=== PATIENT | female | born 1995 | race Caucasian/White ===

== ENCOUNTER 2021-12-30 20:01 | Emergency (ER) | payer BC, MEDICAID, SELFPAY ==
[2021-12-30 20:12] VITALS: BP 113/70; PULSE 87; RESP 16; TEMP 36.4; O2SAT 100; BMI 32.1
[2021-12-30 20:59] LABS: HCG Qualitative* Negative (Negative)
[2021-12-30 21:07] LABS: Appearance Urine Clear (Clear); Bilirubin Urine Negative (Negative); Blood Urine Negative (Negative); Color Urine Yellow (Yellow); Glucose Urine Negative (Negative); Ketones Urine Negative (Negative); Leukocyte Esterase Urine Trace (Negative); Nitrite Urine Negative (Negative); Protein Urine Negative (Negative); Specific Gravity Urine >= 1.030 (1.000-1.030); Urobilinogen Urine 0.2 (0.2-1.0); pH Urine 5.5 (5.0-8.5)
[2021-12-30] MEDS: ONDANSETRON 2 MG/ML inj 4 MG IVP (21:10)
[2021-12-30] MEDS: KETOROLAC 30 MG/ML inj IVP (21:10)
[2021-12-30] MEDS: 0.9 % SODIUM CHLORIDE 1000 ml 1,000 ML IV (21:10)
--- NOTE | 2021-12-30 21:10 | ED_ITS ---
HPI - Abdominal Pain General Date Seen: 12/30/21 Chief Complaint: Abdominal Pain Stated Complaint: SEVERE STOMACH PAINS,LOWER ABDOMEN Time Seen by Provider: 12/30/21 20:44 Source: patient Mode of arrival: ambulatory Limitations: no limitations History of Present Illness HPI narrative: This 26-year-old female was working at [employer] to meal, developed suprapubic abdominal pain approximately 2 hours ago, it was 1 her break, she noted it, this is almost the worst pain she has ever had, she took some Tylenol and ibuprofen, and her pain is gone from 8 or 9 to approximately a 5. She is still nauseous, felt like she would vomit, but never did. She had 1 bowel movement that did not help her discomfort. There is no radiation to her back neck or shoulders, she was feeling well before this. Denies any fevers chills or sweats, she does have a history of ovarian cysts in the past, with 1 previous operation secondary to this. She is rate now at the end of her cycle in going to get her. Five days, she does not think she is . She does have a clear vaginal discharge, and also a history of a previous chlamydia. MD elicited complaint: abdominal pain Pertinent past history: other (Ovarian cyst) Onset (ago): hour(s) (2) Location: suprapubic Severity: moderate Quality: stabbing Radiation: none Migration to: no migration Exacerbating factors: nothing Relieving factors: medication Associated symptoms: nausea Treatments prior to arrival: NSAIDs Related Data Date of last menstrual period: 12/06/21 Patient : No Home Medications Medication Instructions Recorded Confirmed tramadol 50 mg tablet mg 12/30/21 Allergies Allergy/AdvReac Type Severity Reaction Status Date / Time No Known Drug Allergies Allergy Verified 12/30/21 20:19 Review of Systems Status of ROS Reports: 10 or more systems reviewed and unremarkable except as noted in History and below Exam Narrative: Exam Narrative: I see patient in room 3 in no apparent distress she is nontoxic, for vital signs are reviewed and normal. Pupils are equal round reactive to light there is no scleral icterus redness TMs are normal oropharynx normal there is no adenopathy anterior posterior chains her chest is clear bilaterally no wheezing crackles noted heart sounds no clicks murmurs or gallops her abdomen shows some mild tenderness in the suprapubic area. She has quiet bowel sounds, no organomegaly is noted no CVA tenderness, no peritoneal signs. He moves all extremities independently and well, normal upper lower extremities. Const: Vital Signs, click to edit/add: Vital Signs - 24 hr 12/30/21 20:12 Temperature 97.6 F Pulse Rate [Left P ulse Oximeter] 87 Respiratory Rate 16 Blood Pressure [Le ft Upper Arm] 113/70 Pulse Oximetry 100 Oxygen Delivery Me thod Room Air Documenting provider has reviewed patient's vital signs: yes Course Reevaluation(s) Reevaluation #1: Her laboratory work is very reassuring, I did order an abdominal CT without contrast, this shows a large left-sided ovarian cyst, and almost appears to be that there was blood within the cyst, although this is hard to tell on a noncontrast study. Her pain did come back after the Toradol did help her pain, we will go ahead and give her some Dilaudid for the discomfort. I will order an ultrasound to rule out torsion. Time: 22:27 Reevaluation #2: I discussed with Juana the results of the ultrasound which showed that she had a simple cyst, this is of her left ovary, there is no evidence of torsion, with good blood flow and no free fluid. At this point I think follow-up with OBGYN would become a good idea, she wondered if this was possibly due to PCOS, which is a possibility given this is like the 5th time this has happened for her. To be something to bring up with the instructional specialist, to discussed. We talked about the prescription, the interactions and side effects of it. She will at use ibuprofen with this. We talked about worsening, signs and symptoms and when she should follow up in the ER for this, signs of torsion or rupture. Prescriptions given via an [employer] for Percocet 12 tablets, of the 5/325, and Zofran Vital Signs Vital signs: Initial Vital Signs Temperature 97.6 F 12/30/21 20:12 Temperature Source Temporal Artery Scan 12/30/21 20:12 Pulse Rate 87 12/30/21 20:12 Pulse Rhythm 12/30/21 20:12 Pulse Strength 3+ Normal 12/30/21 20:12 Respiratory Rate 16 12/30/21 20:12 Blood Pressure 113/70 12/30/21 20:12 Blood Pressure Mean 84 12/30/21 20:12 Blood Pressure Position Sitting 12/30/21 20:12 Pulse Oximetry 100 12/30/21 20:12 Oxygen Delivery Method 12/30/21 20:12 Vital Signs Temperature 97.6 F 12/30/21 20:12 Pulse Rate 87 12/30/21 20:12 Respiratory Rate 16 12/30/21 20:12 Blood Pressure 113/70 12/30/21 20:12 Pulse Oximetry 100 12/30/21 20:12 Oxygen Delivery Method 12/30/21 20:12 Temperature 97.6 F 12/30/21 20:12 Pulse Rate 87 12/30/21 20:12 Respiratory Rate 16 12/30/21 20:12 Blood Pressure 113/70 12/30/21 20:12 Pulse Oximetry 100 12/30/21 20:12 Oxygen Delivery Method 12/30/21 20:12 MDM - Abdominal Pain MDM Narrative Medical decision making narrative: During the evaluation of this patient I considered multiple differential diagnosis including life-threatening differentials which are appendicitis, aortic aneurysm, mesenteric ischemia, bowel perforation, ectopic , volvulus and bowel obstruction, other differential diagnosis include but are not limited to inflammatory bowel disease, cholecystitis, pancreatitis, hepatitis, gastritis, GERD, diverticulitis, peptic ulcer disease, pyelonephritis/UTI, renal colic/stone, pelvic inflammatory disease, cervicitis, endometritis, intrauterine , dysfunctional uterine bleeding, ovarian cyst/torsion, spontaneous as well as other etiologies Medical Records Attestation: I reviewed the patient's medical records. Lab Data Attestation: I reviewed the patient's lab results. Labs: Lab Results 12/30/21 12/30/21 12/30/21 Range/Units 20:42 20:58 20:58 WBC 8.62 (4.50-11.00) K/uL RBC 4.08 (4.00-5.20) m/uL Hgb 12.1 (12.0-16.0) gm/dL Hct 36.2 (33.0-51.0) % MCV 89 (80-100) fL MCH 30 (26-34) pg MCHC 33 (32-36) gm/dL RDW Coeff of Silas 11.9 (11.5-15.5) % Plt Count 225 (140-440) K/uL Neut % (Auto) 70.2 (42.0-72.0) % Lymph % (Auto) 21.3 (20-44) % Placer % (Auto) 7.3 (0.0-11.0) % Eos % (Auto) 0.7 (0.0-7.0) % Baso % (Auto) 0.2 (0.0-3.0) % Neut # (Auto) 6.04 (1.7-7.0) K/uL Lymph # (Auto) 1.84 (0.90-2.90) K/uL Placer # (Auto) 0.60 (0.00-0.90) K/UL Eos # (Auto) 0.06 (0.00-0.50) K/uL Baso # (Auto) 0.02 (0.00-0.30) K/uL Abs Immat Gran (auto) 0.03 (0.00-0.30) K/uL Sodium 138 (135-149) mmol/L Potassium 3.8 (3.6-5.1) mmol/L Chloride 102 (96-114) mmol/L Carbon Dioxide 28 (20-32) mmol/L BUN 18 (5-24) mg/dL Creatinine 0.9 (0.5-1.5) mg/dL Estimated Creat Clear 93.73 Estimated GFR 92 ml/min Glucose 85 (60-115) mg/dL Calcium 9.3 (8.4-10.6) mg/dL Total Bilirubin 0.4 (0.1-1.5) mg/dL Direct Bilirubin 0.0 (0.0-0.5) mg/dL AST 23 (12-35) U/L ALT 18 (4-35) U/L Alkaline Phosphatase 57 (40-150) U/L Total Protein 7.7 (6.0-8.3) g/dL Albumin 4.4 (3.3-5.0) g/dL Amylase 51 (18-89) U/L Lipase 77 (23-300) U/L HCG, Qual Negative (Negative) Urine Color Yellow (Yellow) Urine Appearance Clear (Clear) Urine pH 5.5 (5.0-8.5) Ur Specific [place] >= 1.030 (1.000-1.030) Urine Protein Negative (Negative) Urine Glucose (UA) Negative (Negative) Urine Ketones Negative (Negative) Urine Blood Negative (Negative) Urine Nitrite Negative (Negative) Urine Bilirubin Negative (Negative) Urine Urobilinogen 0.2 (0.2-1.0) Ur Leukocyte Esterase Trace A (Negative) Urine RBC 0-2 (0-2) Urine WBC 2-5 (0-5) Ur Squamous Epith Cells Many A (None-Few) Urine Bacteria Few A (None) 12/30/21 Range/Units 20:58 WBC (4.50-11.00) K/uL RBC (4.00-5.20) m/uL Hgb (12.0-16.0) gm/dL Hct (33.0-51.0) % MCV (80-100) fL MCH (26-34) pg MCHC (32-36) gm/dL RDW Coeff of Silas (11.5-15.5) % Plt Count (140-440) K/uL Neut % (Auto) (42.0-72.0) % Lymph % (Auto) (20-44) % Placer % (Auto) (0.0-11.0) % Eos % (Auto) (0.0-7.0) % Baso % (Auto) (0.0-3.0) % Neut # (Auto) (1.7-7.0) K/uL Lymph # (Auto) (0.90-2.90) K/uL Placer # (Auto) (0.00-0.90) K/UL Eos # (Auto) (0.00-0.50) K/uL Baso # (Auto) (0.00-0.30) K/uL Abs Immat Gran (auto) (0.00-0.30) K/uL Sodium (135-149) mmol/L Potassium (3.6-5.1) mmol/L Chloride (96-114) mmol/L Carbon Dioxide (20-32) mmol/L BUN (5-24) mg/dL Creatinine (0.5-1.5) mg/dL Estimated Creat Clear Estimated GFR ml/min Glucose (60-115) mg/dL Calcium (8.4-10.6) mg/dL Total Bilirubin (0.1-1.5) mg/dL Direct Bilirubin (0.0-0.5) mg/dL AST (12-35) U/L ALT (4-35) U/L Alkaline Phosphatase (40-150) U/L Total Protein (6.0-8.3) g/dL Albumin (3.3-5.0) g/dL Amylase (18-89) U/L Lipase (23-300) U/L HCG, Qual Cancelled (Negative) Urine Color (Yellow) Urine Appearance (Clear) Urine pH (5.0-8.5) Ur Specific [place] (1.000-1.030) Urine Protein (Negative) Urine Glucose (UA) (Negative) Urine Ketones (Negative) Urine Blood (Negative) Urine Nitrite (Negative) Urine Bilirubin (Negative) Urine Urobilinogen (0.2-1.0) Ur Leukocyte Esterase (Negative) Urine RBC (0-2) Urine WBC (0-5) Ur Squamous Epith Cells (None-Few) Urine Bacteria (None) Imaging Data CT scan - abdomen: My impression: Large left-sided ovarian cyst, Radiologist's impression: Patient: JUANA SCHNEIDER Facility: [facility] Site . Site : 1995 Study: CT Abdomen/Pelvis W/O-12/30/2021 10:13:34 PM Ordering Physician: Imer Cantor Final Report: INDICATION: Abdominal pain. TECHNIQUE: CT abdomen and pelvis without intravenous contrast. Coronal and sagittal formats. COMPARISON: None available. FINDINGS: The imaged lower chest is unremarkable. The unenhanced liver, gallbladder, pancreas, spleen, and adrenals are unremarkable. Symmetric renal size. No urolithiasis or hydronephrosis bilaterally. Decompressed urinary bladder. Anteverted uterus. Left adnexal smoothly marginated homogeneous low-attenuation 6.0 x 3.9 cm lesion (approximately 30 Hounsfield units; series 2, image 113). Trace pelvic free fluid. The bowel appears normal in caliber and thickness diffusely. Normal appendix. No pneumoperitoneum, focal collection, or lymphadenopathy. Normal caliber abdominal aorta. 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 IMPRESSION: 1. Left adnexal 6 cm homogeneous low-attenuation 6 cm lesion is indeterminate, possibly a complicated cyst or endometrioma. Recommend further evaluation with pelvic ultrasound. 2. Trace pelvic free fluid, possibly physiologic. 3. Multiple vertebral segmentation anomalies. Dictated by Giancarlo Sotomayor MD @ 12/30/2021 10:33:53 PM Please note that all CT scans at this facility use dose modulation, iterative reconstruction, and/or weight-based dosing when appropriate to reduce radiation dose to as low as reasonably achievable. Dictated by: Giancarlo Sotomaoyr MD @ 12/30/2021 22:33:59 (Electronic Signature) Patient: JUANA SCHNEIDER Facility: [facility] Site . Site : 1995 Study: US Pelvis -12/30/2021 11:16:29 PM Ordering Physician: Imer Cantor Final Report: INDICATION: Left adnexal lesion identified on CT TECHNIQUE: Ultrasound pelvis endovaginal utilizing grayscale, color Doppler, and spectral D oppler sonography. COMPARISON: CT abdomen/pelvis 12/30/2021. FINDINGS: Uterus: Anteverted uterus measuring 8.2 x 3.9 x 5.3. Homogeneous echotexture. No suspicious lesion. Endometrium: Endometrial stripe measures 7 mm in thickness. No endometrial polyp or mass identified. Right ovary: 4.6 x 1.8 x 2.5 cm. Intact blood flow. No suspicious lesion. Left ovary: 7.0 x 4.6 x 4.7 cm. Intact blood flow. Left ovarian anechoic 5.5 x 4.2 x 4.7 cm lesion with posterior acoustic enhancement, without internal complexity or vascularity. Cul-de-sac: No significant free fluid. IMPRESSION: 1. The left ovary is enlarged as result of a 5.5 cm simple ovarian cyst. 2. Intact ovarian blood flow bilaterally. Dictated by Giancarlo Sotomayor MD @ 12/30/2021 11:29:31 PM Dictated by: Giancarlo Sotomayor MD @ 12/30/2021 23:29:38 (Electronic Signature) Discharge Plan Discharge Clinical Impression: Ovarian cyst, Abdominal pain Patient Disposition: Home, Self-Care Condition: Stable Instructions: Ovarian Cyst (ED), Abdominal Pain (ED), Ovarian Cyst Removal (DC) Additional Instructions: Home rest use of ibuprofen 800 mg p.o. t.i.d. supplementing with the Percocet as needed for the pain. Follow-up with gynecology for recheck next week. Will need another ultrasound at approximately 4-6 weeks to check on this. Increasing fevers chills nausea vomiting or worsening pain then you should come back at once, sometimes he cyst can twist onto themselves. Hold the tramadol, not use this with the narcotics. Do not use any alcohol with this too. Prescriptions: No Action tramadol 50 mg tablet Label Comments: TAKE 1 TABLET (50 MG) BY MOUTH TWO TIMES DAILY NEEDED FOR PAIN. Follow Up/Referrals: Sayra Thomas MD [Staff Physician] - Amanda Cuellar PA-C [Physician Scenic Artist] - Catherine Santiago MD [Staff Physician] - Lay Herzog MD [Staff Physician] - Provider,Not a Local [Primary Care Provider] - Sherley Jackson MD [Staff Physician] - Stand Alone Forms: [employer] Info Instructions
[2021-12-30 21:17] LABS: Bacteria Urine Few; RBC Urine 0-2 (0-2); Squamous Epithelial Cell Urine Many (None-Few)
[2021-12-30 21:19] LABS: Basophils Absolute Auto 0.02 K/uL (0.00-0.30); Basophils Percent Auto 0.2 % (0.0-3.0); Eosinophils Absolute Auto 0.06 K/uL (0.00-0.50); Eosinophils Percent Auto 0.7 % (0.0-7.0); Hematocrit 36.2 % (33.0-51.0); Hemoglobin* 12.1 gm/dL (12.0-16.0); Immature Granulocytes Abs Auto 0.03 K/uL (0.00-0.30); Lymphocytes Absolute Auto 1.84 K/uL (0.90-2.90); Lymphocytes Percent Auto 21.3 % (20-44); Mean Corpuscular HGB Conc 33 gm/dL (32-36); Mean Corpuscular Hemoglobin 30 pg (26-34); Mean Corpuscular Volume 89 fL (80-100); Monocytes Percent Auto 7.3 % (0.0-11.0); Neutrophils Absolute Auto 6.04 K/uL (1.7-7.0); Neutrophils Percent Auto 70.2 % (42.0-72.0); Platelet Count* 225 K/uL (140-440); RDW Coefficient of Variation % 11.9 % (11.5-15.5); Red Blood Count 4.08 m/uL (4.00-5.20); White Blood Count* 8.62 K/uL (4.50-11.00)
[2021-12-30 21:21] LABS: Slide Review Reflex No
[2021-12-30 21:30] LABS: Albumin* 4.4 g/dL (3.3-5.0); Amylase* 51 U/L (18-89); Chloride* 102 mmol/L (96-114); Potassium* 3.8 mmol/L (3.6-5.1); Sodium* 138 mmol/L (135-149)
[2021-12-30 21:31] LABS: Alanine Aminotransferase* 18 U/L (4-35); Alkaline Phosphatase* 57 U/L (40-150); Aspartate Amino Transferase* 23 U/L (12-35); Bilirubin Total* 0.4 mg/dL (0.1-1.5); Blood Urea Nitrogen* 18 mg/dL (5-24); Calcium* 9.3 mg/dL (8.4-10.6); Carbon Dioxide* 28 mmol/L (20-32); Creatinine* 0.9 mg/dL (0.5-1.5); Est. Creatinine Clearance* 93.73; Estimated Glomerular Filt Rate 92 ml/min; Glucose* 85 mg/dL (60-115); Lipase* 77 U/L (23-300); Total Protein* 7.7 g/dL (6.0-8.3)
--- NOTE | 2021-12-30 21:52 | CRLHL7_ITS ---
For Patients: As a result of the Century Cures Act, medical imaging exams and procedure reports are released immediately into your electronic medical record. You may view this report before your referring provider. If you have questions, please contact your health care provider. INDICATION: Abdominal pain. TECHNIQUE: CT abdomen and pelvis without intravenous contrast. Coronal and sagittal formats. COMPARISON: None available. FINDINGS: The imaged lower chest is unremarkable. The unenhanced liver, gallbladder, pancreas, spleen, and adrenals are unremarkable. Symmetric renal size. No urolithiasis or hydronephrosis bilaterally. Decompressed urinary bladder. Anteverted uterus. Left adnexal smoothly marginated homogeneous low-attenuation 6.0 x 3.9 cm lesion (approximately 30 Hounsfield units; series 2, image 113). Trace pelvic free fluid. The bowel appears normal in caliber and thickness diffusely. Normal appendix. No pneumoperitoneum, focal collection, or lymphadenopathy. Normal caliber abdominal aorta. 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 IMPRESSION: 1. Left adnexal 6 cm homogeneous low-attenuation 6 cm lesion is indeterminate, possibly a complicated cyst or endometrioma. Recommend further evaluation with pelvic ultrasound. 2. Trace pelvic free fluid, possibly physiologic. 3. Multiple vertebral segmentation anomalies. Dictated by Giancarlo Sotomayor MD @ 12/30/2021 10:33:53 PM Please note that all CT scans at this facility use dose modulation, iterative reconstruction, and/or weight-based dosing when appropriate to reduce radiation dose to as low as reasonably achievable. Dictated by: Gaincarlo Sotomayor MD @ 12/30/2021 22:33:59 (Electronically Signed)
--- NOTE | 2021-12-30 22:20 | CRLHL7_ITS ---
For Patients: As a result of the Cures Act, medical imaging exams and procedure reports are released immediately into your electronic medical record. You may view this report before your referring provider. If you have questions, please contact your health care provider. INDICATION: Left adnexal lesion identified on CT TECHNIQUE: Ultrasound pelvis endovaginal utilizing grayscale, color Doppler, and spectral Doppler sonography. COMPARISON: CT abdomen/pelvis 12/30/2021. FINDINGS: Uterus: Anteverted uterus measuring 8.2 x 3.9 x 5.3. Homogeneous echotexture. No suspicious lesion. Endometrium: Endometrial stripe measures 7 mm in thickness. No endometrial polyp or mass identified. Right ovary: 4.6 x 1.8 x 2.5 cm. Intact blood flow. No suspicious lesion. Left ovary: 7.0 x 4.6 x 4.7 cm. Intact blood flow. Left ovarian anechoic 5.5 x 4.2 x 4.7 cm lesion with posterior acoustic enhancement, without internal complexity or vascularity. Cul-de-sac: No significant free fluid. IMPRESSION: 1. The left ovary is enlarged as result of a 5.5 cm simple ovarian cyst. 2. Intact ovarian blood flow bilaterally. Dictated by Giancarlo Sotomayor MD @ 12/30/2021 11:29:31 PM Dictated by: Giancarlo Sotomayor MD @ 12/30/2021 23:29:38 (Electronically Signed)
[2021-12-30 22:30] VITALS: BP 105/71; PULSE 71; RESP 16; TEMP 36.9; O2SAT 99
[2021-12-30] MEDS: HYDROmorphone 0.5 mg/0.5 ml inj IVP (22:33)
[2021-12-30 23:30] VITALS: BP 118/76; PULSE 81; RESP 16; O2SAT 97
[2021-12-31] VITALS: BP 118/76; PULSE 81; RESP 16; TEMP 36.9
[2021-12-31 01:08] LABS: Chlamydia DNA Amplified* NOT DETECTED (No Detected); GC DNA Amplified* NOT DETECTED (No Detected)
== END 2021-12-31 00:01 | disposition home or self-care (01) ==
PROVIDERS: Emergency Provider Family Medicine
DX: R10.9 Unspecified abdominal pain (principal); N83.202 Unspecified ovarian cyst, left side
CPT/HCPCS: 36415; 74176; 76830; 80048; 80076; 81001; 81003; 81015; 82150; 83690; 84703; 85025; 87086; 87491; 87591; 93976; 96374; 96375; 99284; 99285; J1170; J1885; J2405; J7030

== ENCOUNTER 2022-01-20 09:02 | Day surgery (SDC) | payer BC, MEDICAID, SELFPAY ==
[2022-01-20] VITALS (16 sets, daily range): BP systolic 95–129; BP diastolic 47–100; PULSE 63–119; RESP 12–18; TEMP 36.3–37.2; O2SAT 92–100; BMI 33.3
[2022-01-20] MEDS: LACTATED RINGERS 1000 ML 1,000 ML 100 ML IV (09:30)
[2022-01-20 09:48] LABS: Ur HCG Qualitative* Negative (Negative)
[2022-01-20] MEDS: SODIUM CHLORIDE 0.9 % (FLUSH) 10 ML SYRINGE IVF (10:13)
[2022-01-20] MEDS: ETHYL CHLORIDE 1 APPLICATION 1 APPLIC TOPICAL (10:13)
[2022-01-20 11:12] LABS: Hemoglobin* 12.8 gm/dL (12.0-16.0)
[2022-01-20] MEDS: MEPERIDINE 25 MG/ML INJ 12.5 MG IVP (13:51)
--- NOTE | 2022-01-20 13:51 | P.GYNPRC_ITS ---
Procedure Note Date Seen: 01/20/22 Procedure Details: PREOPERATIVE DIAGNOSES: 1.Chronic pelvic pain, recurrent left ovarian cyst 2.Screening for cervical cancer POSTOPERATIVE DIAGNOSES: 1. Chronic pelvic pain, left adnexal adhesions 2. Screening for cervical cancer NAME OF PROCEDURE:Laparoscopic left salpingo-oophorectomy, pap smear performance ANESTHESIA:GETA COMPLICATIONS: None. ESTIMATED BLOOD LOSS: 25mL DRAINS: Tejeda to gravity. Findings:Normal external genitalia, Speculum exam: Vagina: well supported and epithelized, Nulliparous cervix, w/o any gross lesion or abnormal discharge. Uterus anteverted of about 8cm. Intrabdominal survey: grossly normal liver, gallbladder, small intestine. Uterus of about 8cm, right fallopian tube and ovary normal. Left ovary about 5cm attached to the left fallopian tube, fimbrial end of the left fallopian tube looks scarred and attached to ovary, fallopian tube and ovary with filmy adhesions to the descending sigmoid colon epiploica. Patient was taken to the OR with IV fluid running and pneumatic compression stockings applied to the lower extremities. General anesthesia was obtained without difficulty. The patient was placed in the dorsal lithotomy position with Ernesto type stirrups with knee bent at 30 degree angles. Pap smear was collected at this time prior to sterile prep utilizing a Graves speculum and performed in the usual manner. Patient was prepared and draped under usual sterile technique. Examination under anesthesia revealed a normal size, midline uterus. The bladder was emptied and Tejeda catheter placed. Speculum was placed in the vagina. The anterior lip of the cervix was grasped with a ring forceps. Uterine manipulator was introduced. Two Allis clamps were applied to the periumbilical skin for manual elevation of the abdomen. A vertical skin incision was made in the umbilical fold. 5 mm Optiview trocar introduced into the peritoneal cavity without difficulty. Direct visualization confirmed intraperitoneal placement. Pneumoperitoneum was established with CO2 gas to a pressure of 15mmHg. Findings as above. An intra-abdominal survey revealed normal-appearing liver, gallbladder, spleen, and lack of any visceral or vascular injury. The Trendelenburg position was obtained to facilitate pelvic exposure. One 11 mm trocar was inserted on the left lower quadrant under direct laparoscopic visualization. Then 1 5mm trocar was inserted on the right lower quadrant under direct visualization. The left ovary and tube were grasped with atraumatic grasper and the filmy adhesions to the sigmoid epiploica were taken down with laparoscopic scissors. Once this dissection was complete, the left infundibulopelvic ligament was grasped with Thunderbeat bipolar device and this was clamped, coagulated and cut. Hemostasis was secured, in a similar fashion the left utero ovarian ligament and the mesosalpinx of the left fallopian tube were clamped, coagulated and cut. Hemostasis was secured. A laparoscopic bag was inserted through the 11mm port and opened under direct visualization, the specimen was placed in bag and removed from abdomen again under laparoscopic visualization, some of the specimen had to be removed from bag prior to being able to remove it entirely from abdomen. Trocar was replaced. Suction, ir rigation utilized and second look demonstrated good hemostasis. Gisselle was utilized for further hemostasis at adhesion dissection site. Hemostasis secured. A Jose J Carterson system was utilized to close the 11mm port fascia under direct visualization. Trocars removed under direct visualization. All instruments were removed from the abdomen and vagina. The pneumoperitoneum was released, and correct instrument counts were confirmed. Skin incisions were closed with 4-0 Monocryl sutures in a subcuticular fashion. The patient was taken to the recovery room in a stable condition. Patient will be discharged from recovery after all the criteria are met for discharge. She was given instructions regarding follow-up visit in 2 weeks at the [facility]. Postop pain management, lifting restrictions, intercourse restrictions were discussed with patient before surgery all questions were answered. Pathology: Left fallopian tube and ovary
--- NOTE | 2022-01-20 13:53 | W.ANESCHARGE ---
Anesthesia Charges Start Date/Time Anesthesia Start Date: 01/20/22 Anesthesia Start Time: 11:58 Stop Date/Time Anesthesia Stop Date: 01/20/22 Anesthesia Stop Time: 13:55 Summary Emergency: No
--- NOTE | 2022-01-20 13:54 | W.ANESCHARGE ---
Anesthesia Charges Start Date/Time Anesthesia Start Date: 01/20/22 Anesthesia Start Time: 11:58 Stop Date/Time Anesthesia Stop Date: 01/20/22 Anesthesia Stop Time: 13:55 Summary Emergency: No
[2022-01-20] MEDS: fentaNYL 100 MCG/2 ML inj 50 MCG IVP ×2 (14:09→14:15)
[2022-01-20] MEDS: ONDANSETRON 2 MG/ML inj 4 MG IVP ×2 (14:10)
[2022-01-20] MEDS: HYDROmorphone 0.5 mg/0.5 ml inj IVP (14:25)
[2022-01-20] MEDS: KETOROLAC 30 MG/ML inj IVP (15:05)
[2022-01-20] MEDS: OXYCODONE 5 MG TABLET PO (15:05)
== END 2022-01-20 15:55 | disposition home or self-care (01) ==
PROVIDERS: Visit Provider Obstetrics & Gynecology
PROC: (CPT 49320; principal; 2022-01-20 10:45)
DX: N83.292 Other ovarian cyst, left side (principal); R10.2 Pelvic and perineal pain; G89.29 Other chronic pain; Z12.4 Encounter for screening for malignant neoplasm of cervix
CPT/HCPCS: 58661; 00840; 00860; 00952; 36415; 81025; 85018; 88174; 88305; A9270; J1100; J1170; J1885; J2175; J2250; J2405; J2704; J3010; J7120

== ENCOUNTER 2022-01-20 19:04 | Emergency (ER) | payer BC, MEDICAID, SELFPAY ==
[2022-01-20 19:11] VITALS: BP 135/78; PULSE 89; RESP 18; TEMP 36.6; O2SAT 99; BMI 32.9
--- NOTE | 2022-01-20 19:29 | ED.ABDPAIN ---
HPI - Abdominal Pain General Chief Complaint: Post Op Complication Stated Complaint: Abdominal Pain Time Seen by Provider: 01/20/22 19:10 History of Present Illness HPI narrative: This 26-year-old female comes in with abdominal pain. She had her left ovary and an ovarian cyst connected to it removed laparoscopically earlier today. She went home at about noon and took an oxycodone tablet which did not help much for her pain. Several hours later she took another tablet and did not feel any benefit from these medicines. She does not have any fever or other symptoms to report. She has had some nausea but no vomiting. There is no report of dysuria or altered bowel function. She rates the pain at 7 or 8/10 when remaining still and this worsens to 10/10 with movement. Related Data Home Medications Medication Instructions Recorded Confirmed norethindrone acetate 1.5 1 tab PO QDAY 01/17/22 01/20/22 mg-ethinyl estradiol 30 mcg tablet (Chele) tizanidine 4 mg capsule 4 mg PO QHS PRN 01/17/22 01/20/22 Previous Rx's Medication Instructions Recorded ketorolac 10 mg tablet 10 mg PO Q8H 5 days #15 tabs 01/20/22 oxycodone 5 mg tablet 5 - 10 mg PO Q4-6H PRN 4 OR 01/20/22 GREATER ON PAIN SCALE #15 tabs Allergies Allergy/AdvReac Type Severity Reaction Status Date / Time topiramate [From Topamax] AdvReac Severe Unknown Verified 01/17/22 10:02 drospirenone AdvReac Mild Headache Verified 01/17/22 10:02 [From Faustina (21)] ethinyl estradiol AdvReac Mild Headache Verified 01/17/22 10:02 [From Faustina (21)] Review of Systems Status of ROS Reports: 10 or more systems reviewed and unremarkable except as noted in History and below Narrative Constitutional: No fevers, no weight gain or loss. Eyes: No discharge. No vision changes. HENT: No congestion, no sore throat, no ear pain. Cardiovascular: No chest pain, no palpitations. Respiratory: No shortness of breath, no wheezes, no cough. Gastrointestinal: No vomiting, no diarrhea. Abdominal pain as described above. Genitourinary: No dysuria, no hematuria. Musculoskeletal: Normal range of motion. Skin: No rashes, no pruritis. Neurological: No dizziness, weakness, sensory change, speech change. Endo/Heme/Allergies: No bruising or bleeding. No polydipsia. Pysch: no suicidality, no anxiety, no insomnia. All other systems reviewed and are negative. 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 Exercises 3 days a week. Nonsmoker. No alcohol use. No illicit drug use. No concerns with safety or abuse. Smoking Status: Never smoker Do you use any of these nicotine containing products: None How often do you have a drink containing alcohol: never AUDIT-C Alcohol total score: 0 Non-prescribed substance use: denies use Caffeine: No Are you using contraception or practicing any form of control: Yes Exam Narrative: Exam Narrative: Constitutional: Well-developed, well-nourished, no acute distress. HEENT: Normocephalic, atraumatic. Neck: Normal range of motion. Nontender. Supple. Heart: Regular. No murmurs. Normal rate. Intact distal pulses. Lungs: Clear to auscultation. No chest discomfort. No wheezes, rhonchi, or rales. Abdomen: Decreased bowel sounds. Diffuse tenderness throughout the abdomen. No rebound tenderness. No guarding. Genitalia: Deferred. Back: No midline tenderness. Normal range of motion. Extremities: Normal range of motion. No injury. Skin: Intact. No rash. Warm. No erythema or pallor. Neurologic: No altered sensation. No weakness. Alert and oriented. Psychiatric: No suicidality. No anxiety or depression. No insomnia. Nursing notes and vitals signs are reviewed. Const: Vital Signs, click to edit/add: Vital Signs - 24 hr 01/20/22 19:11 Temperature 97.9 F Pulse Rate [Right Pulse Oximeter] 89 Respiratory Rate 18 Blood Pressure [Ri ght Upper Arm] 135/78 Pulse Oximetry 99 Oxygen Delivery Me thod Room Air Course Vital Signs Vital signs: Initial Vital Signs Temperature 97.9 F 01/20/22 19:11 Temperature Source Temporal Artery Scan 01/20/22 19:11 Pulse Rate 89 01/20/22 19:11 Respiratory Rate 18 01/20/22 19:11 Blood Pressure 135/78 01/20/22 19:11 Blood Pressure Mean 97 01/20/22 19:11 Blood Pressure Position Sitting 01/20/22 19:11 Pulse Oximetry 99 01/20/22 19:11 Oxygen Delivery Method 01/20/22 19:11 Vital Signs Temperature 97.9 F 01/20/22 19:11 Pulse Rate 89 01/20/22 19:11 Respiratory Rate 18 01/20/22 19:11 Blood Pressure 135/78 01/20/22 19:11 Pulse Oximetry 99 01/20/22 19:11 Oxygen Delivery Method 01/20/22 19:11 Temperature 97.9 F 01/20/22 19:11 Pulse Rate 89 01/20/22 19:11 Respiratory Rate 18 01/20/22 19:11 Blood Pressure 135/78 01/20/22 19:11 Pulse Oximetry 99 01/20/22 19:11 Oxygen Delivery Method 01/20/22 19:11 MDM - Abdominal Pain MDM Narrative Medical decision making narrative: This patient is postop laparoscopic removal of her left ovary and an ovarian cyst. She comes in because of pain that is not adequately controlled with oxycodone. She arrives with normal vital signs. Her exam shows tenderness in her abdomen which would be expected postop same day. She does not have any fever. There is no guarding. The surgical wound sites appear normal without sign of drainage or erythema. This appears to be a matter of pain control postop. The patient did receive an intramuscular injection of morphine 10 mg. She has oxycodone that can be used as needed and directed. She also states that she has tramadol at home. I stated that she could use these medications together if needed. I did prescribe some Toradol tablets but indicated that it might be good to hold off on that medicine as it may cause some increase risk for bleeding. Currently the patient does not show signs or symptoms of intra-abdominal bleeding or infection. I did describe signs and symptoms that would indicate a need for return and re-evaluation. She can follow up with her surgery Clinic tomorrow as needed. Discharge Plan Discharge Clinical Impression: Postoperative abdominal pain Patient Disposition: Home, Self-Care Condition: Stable Additional Instructions: Take medication as needed and indicated. Follow up with OBGYN clinic tomorrow if not improving or otherwise as scheduled. Return if worsening symptoms occur such as fever or purulent drainage. Prescriptions: New ketorolac 10 mg tablet 10 mg PO Q8H 5 Days Qty: 15 0RF No Action tizanidine 4 mg capsule 4 mg PO QHS PRN norethindrone ac-eth estradiol [Chele 1.5 (21)] 1.5-30 mg-mcg tablet 1 tab PO QDAY oxycodone 5 mg Tablet 5 - 10 mg PO Q4-6H PRN (Reason: 4 OR GREATER ON PAIN SCALE) Qty: 15 0RF Follow Up/Referrals: Provider,Not a Local [Primary Care Provider] - Stand Alone Forms: [employer] Info Instructions
--- OUTSIDE RECORDS SUMMARY | 2022-01-20 19:45 | XMS_ITS | Encounter Summary ---
:1995 Author Organization [facility] Address [address] [place] [address]. [place] [address] Care Team Providers Name Role Phone Clinic, Bebeto Girard Primary Care Provider [phone] Mimi Son Unavailable Encounter Details Date Type Department Care Team Description 07/10/2020 Telephone [facility] [address] [address] [facility] [place] [id number] [phone] Social History Tobacco Use Types Packs/Day Years Used Date Smoking Tobacco: Passive Smoke Exposure - Never Smoker Smokeless Tobacco: Never Comments: Mom smokes outside home Alcohol Use Standard Drinks/Week Comments No 0 (1 standard drink = 0.6 oz pure alcoho l) Sex Assigned at Date Recorded Female 10/31/2020 4:31 PM CDT COVID-19 Exposure Response Date Recorded In the last month, have you been in contact with No / Unsure 12/30/2020 9:51 PM CDT someone who was confirmed or suspected to have Coronavirus / COVID-19? documented as of this encounter Miscellaneous Notes Telephone Encounter - Vamshi Mena - 07/10/2020 10:25 AM CDT Called by ED provider for phone consult on this patient with repaired tetralogy of fallot who is having chest pain and dyspnea. EKG sinus rhythm. Symptoms fairly mild per provider. She is resting comfortably in the room. Reportedly COVID positive yesterday but negative in clinic today. Hemodynamicallynormal. Her last echo was in March with normal function and no residual VSD. Troponin negative inED. Normal D dimer. 1. Recommend holter monitor for 48 hours 2. Recommend earlier follow up with Dr. Son to follow up these symptoms. 3. If symptoms worsen or fail to improve please advise her to return to the ED for re-evaluation over the weekend. Vamshi Dupont MD, MPH Pediatric Telephone Solicitor [facility] documented in this encounter Plan of Treatment Not on filedocumented as of this encounter Visit Diagnoses Not on filedocumented in this encounter Care Teams On Call Relationship Specialty Start Date End Date [facility] PCP - General 01/03/17 04/25/21 [id number] [place] [address] Mimi Son MBBS Assigned Pediatric Specialist 03/22/20 [facility] [facility] [place] [address] documented as of this encounter
--- OUTSIDE RECORDS SUMMARY | 2022-01-20 19:45 | XMS_ITS | Encounter Summary ---
:1995 Author Organization [place] Address [address] [place] [address] Care Team Providers Name Role Phone Mimi Son Unavailable System, Provider Not In Primary Care Provider Unavailable Encounter Details Date Type Department Care Team Description 01/13/2022 Emergency [facility] Madelin Simmons, DO Pelvic pain; [facility] Emergency Dep t [facility] Cyst of left ovary [address] [facility] [place] [phone] Social History Tobacco Use Types Packs/Day Years Used Date Smoking Tobacco: Passive Smoke Exposure - Never Smoker Smokeless Tobacco: Never Comments: Mom smokes outside home Alcohol Use Standard Drinks/Week Comments No 0 (1 standard drink = 0.6 oz pure alcoho l) Sex Assigned at Date Recorded Female 10/31/2020 4:31 PM CDT COVID-19 Exposure Response Date Recorded In the last 10 days, have you been in contact with No / Unsu re 01/13/2022 2:27 AM CDT someone who was confirmed or suspected to have Coronavirus/COVID-19? documented as of this encounter Last Filed Vital Signs Vital Sign Reading Time Taken Comments Blood Pressure 127/84 01/13/2022 2:33 AM CDT Pulse 64 01/13/2022 2:33 AM CDT Temperature 36.3 ??C (97.4 ??F) 01/13/2022 2:33 AM CDT Respiratory Rate 16 01/13/2022 2:33 AM CDT Oxygen Saturation 97% 01/13/2022 2:33 AM CDT Inhaled Oxygen Concentration - - Weight - - Height - - Body Mass Index - - documented in this encounter Discharge Instructions AttachmentsThe following attachments cannot be sent through Care Everywhere. Cysts, Ovarian (Yoruba)documented in this encounter Medications at Time of Discharge Medication Sig Dispensed Refills Start Date End Date Multiple Vitamins-Minerals Take 2 chew tab by 0 (MULTIVITAMIN GUMMIES mouth daily ADULTS PO) ondansetron (ZOFRAN ODT) 4 Take 1 tablet (4 mg) 10 tablet 0 04/27/2021 MG ODT tab by mouth every 8 hours as needed for nausea documented as of this encounter ED Notes Ban Jraamillo RN - 01/13/2022 2:32 AM CDT Known ovarian cyst on left ovary. Surgery scheduled next week to remove and stabilize left ovary. Pttook percocet prescribed from [facility] - now pain getting worse. Rosalind Simmons DO - 01/13/2022 2:27 AM CDT History Chief Complaint: Abdominal/pelvic pain HPI Malinda Medina is a 26 year old female presenting with abdominal/pelvic pain. Patient reportson 12/30 she presented to [place] ED and was diagnosed with a large ovarian cyst. She reports following up with OBGYN and is scheduled to undergo surgical removal next week. She reports she has been taking tylenol/motrin for pain control and took a percocet an hour prior to arrival as this evening roughly 2 hours prior to arrival she reported sudden onset worsening pain predominately to lower abdomen/left pelvic region. She denied any radiation of the pain. No reported fever, chills, dyspnea, vomiting, vaginal bleeding, dysuria, diarrhea. She does report accompanying nausea and vaginal discharge.She denies concerns for STIs. 12/30/21 Pelvic ultrasound IMPRESSION: 1. The left ovary is enlarged as result of a 5.5 cm simple ovarian cyst. 2. Intact ovarian blood flow bilaterally. Review of Systems Constitutional: Negative for fever. Respiratory: Negative for shortness of breath. Gastrointestinal: Positive for abdominal pain. Genitourinary: Positive for pelvic pain and vaginal discharge. Negative for dysuria and vaginal bleeding. Musculoskeletal: Negative for back pain. All other systems reviewed and are negative. Allergies: Estrogens [place] [Hydrocodone-Acetaminophen] Medications: Multiple Vitamins-Minerals (MULTIVITAMIN GUMMIES ADULTS PO) ondansetron (ZOFRAN ODT) 4 MG ODT tab Past Medical History: Past Medical History: Diagnosis Date ??? Anxiety ??? Depression ??? Tetralogy of Fallot Past Surgical History: Past Surgical History: Procedure Laterality Date ??? CARDIAC SURGERY ??? tatraology of fllot 10 month Family History: family history includes Breast Cancer in her maternal aunt; Diabetes in her maternal grandfather andmaternal grandmother. Social History: reports that she is a non-smoker but has been exposed to tobacco smoke. She has never used smokeless tobacco. She reports that she does not drink alcohol and does not use drugs. PCP: Sylvia Yu [facility] Physical Exam Patient Vitals for the past 24 hrs: BP Temp Temp src Pulse Resp SpO2 01/13/22 0233 127/84 97.4 ??F (36.3 ??C) Temporal 64 16 97 % Physical Exam Nursing note and vitals reviewed. Constitutional: Well nourished. Eyes: Conjunctiva normal. Pupils are equal, round, and reactive to light. ENT: Nose normal. Mucous membranes pink and moist. Neck: Normal range of motion. CVS: Normal rate, regular rhythm. Normal heart sounds. Pulmonary: Lungs clear to auscultation bilaterally. No wheezes/rales/rhonchi. GI: Abdomen soft. Nontender, nondistended. No rigidity or guarding. No CVA tenderness Pelvic: Normal external genitalia. No vaginal bleeding. Scant cervical discharge. No CMT or adnexal tenderness noted. Cervical os closed. Mortgage Loan Assistant EMT Melissa MSK: No calf tenderness or swelling. Neuro: Alert. Follows simple commands. Skin: Skin is warm and dry. No rash noted. Psychiatric: Normal affect. Emergency Department Course Imaging: US Pelvis Cmplt w Transvag & Doppler LmtPel Duplex Limited Final Result IMPRESSION: 4.2 x 5.4 x 4.3 cm left ovarian complex cyst, the cyst is predominantly anechoic a solid nodule seenwithin the wall the ovary, no flow is seen within the nodule on Doppler evaluation. Follow-up per guidelines below. COMPLEX INDETERMINATE CYSTS: Premenopausal: Less than or equal to 3 cm: Consider physiologic. Greater than 3 cm: 8-12 week follow up. Postmenopausal: Any complex cyst: Surgical consultation. REFERENCE: Management of Asymptomatic Ovarian and Other Adnexal Cysts Imaged at US: Society of Radiologists in Ultrasound Consensus Conference Statement. Radiology December 2009; [phone]. 1. Simple Adnexal Cysts: SRU Consensus Conference Update on Follow-up and Reporting. Radiology December 2018. [phone]. Report per radiology Laboratory: Labs Ordered and Resulted from Time of ED Arrival to Time of ED Departure BASIC METABOLIC PANEL - Abnormal Result Value Sodium 138 Potassium 4.1 Chloride 102 Carbon Dioxide (CO2) 27 Anion Gap 9 Urea Nitrogen 14.1 Creatinine 0.91 Calcium 9.0 Glucose 106 (*) GFR Estimate 90 ROUTINE UA WITH MICROSCOPIC REFLEX TO CULTURE - Abnormal Color Urine Light Yellow Appearance Urine Clear Glucose Urine Negative Bilirubin Urine Negative Ketones Urine Negative Specific [place] Urine 1.026 Blood Urine Negative pH Urine 6.5 Protein Albumin Urine 20 (*) Urobilinogen Urine Normal Nitrite Urine Negative Leukocyte Esterase Urine Moderate (*) Bacteria Urine Few (*) Mucus Urine Present (*) RBC Urine 1 WBC Urine 3 Squamous Epithelials Urine 5 (*) WET PREPARATION - Abnormal Trichomonas Absent Yeast Absent Clue Cells Absent WBCs/high power field 2+ (*) HCG QUALITATIVE - Normal hCG Serum Qualitative Negative CBC WITH PLATELETS AND DIFFERENTIAL WBC Count 8.3 RBC Count 4.20 Hemoglobin 12.4 Hematocrit 38.1 MCV 91 MCH 29.5 MCHC 32.5 RDW 11.7 Platelet Count 265 % Neutrophils 59 % Lymphocytes 33 % Monocytes 6 % Eosinophils 2 % Basophils 0 % Immature Granulocytes 0 NRBCs per 100 WBC 0 Absolute Neutrophils 5.0 Absolute Lymphocytes 2.7 Absolute Monocytes 0.5 Absolute Eosinophils 0.1 Absolute Basophils 0.0 Absolute Immature Granulocytes 0.0 Absolute NRBCs 0.0 NEISSERIA GONORRHOEAE PCR CHLAMYDIA TRACHOMATIS PCR TRICHOMONAS VAGINALIS BY PCR URINE CULTURE Emergency Department Course: Reviewed: I reviewed nursing notes, vitals, past medical history and Care Everywhere Assessments: I obtained history and examined the patient as noted above. Interventions: Medications ketorolac (TORADOL) injection 15 mg (15 mg Intravenous Given 01/13/22 0301) Disposition: The patient was discharged to home. Impression & Plan Medical Decision Making: Patient is a 26-year-old female presenting with abdominal/pelvic pain as well as vaginal discharge. She has a known ovarian cyst and is scheduled for surgical evaluation in a week. Concern for possibleovarian torsion based on exam though fortunately ultrasound does not suggest this at this point in time. We did discuss possibility of intermittent torsion. She feels comfortable however with dischargehome at this point in time with plans to call her [employer]. UA without obvious infection though formalculture sent. She was tested for gonorrhea/chlamydia/trichomonas though results pending. Wet prep negative. No clinical evidence to suggest PID on exam. She has no abdominal tenderness and I do not feel further emergent imaging is warranted today as I doubt intra- abdominal catastrophe. She reported symptom improvement after IV Toradol. She has analgesia at home. Return precautions given. Diagnosis: ICD-10-CM 1. Pelvic pain R10.2 2. Cyst of left ovary N83.202 Discharge Medications: New Prescriptions No medications on file 01/13/2022 Rosalind Simmons DO McDonald, Lindsey E, DO 01/13/22 0521 documented in this encounter Miscellaneous Notes Result Encounter Note - Arya Gonzalez RN - 01/13/2022 5:14 AM CDT Negative Result Encounter Note - Arya Gonzalez RN - 01/13/2022 5:14 AM CDT Final result for both N. Gonorrhoeae PCR and Chlamydia Trachomatis PCR are NEGATIVE. No treatment or change in treatment per [facility] ED Lab Result N. Gonorrhea AND/OR Chlamydia T. protocol. Result Encounter Note - Arya Gonzalez RN - 01/13/2022 5:14 AM CDT Final urine culture report is negative. Adult Negative Urine culture parameters per protocol: Any # Urogenital single or mixed organism, <10,000 col/ml single organism (cath/midstream), and > 3 organisms (No susceptibilities performed). [facility] Emergency Dept discharge antibiotic prescribed (If applicable): None Treatment recommendations per [facility] ED Lab Result Urine Culture protocol. documented in this encounter Plan of Treatment Not on filedocumented as of this encounter Procedures Procedure Name Priority Date/Time Associated Comments Diagnosis US PELVIS COMPLETE W STAT 01/13/2022 4:14 AM R esults for this TRANSVAGINAL AND CDT procedure a re in DOPPLER LIMITED the results section. TRICHOMONAS VAGINALIS STAT 01/13/2022 3:12 AM Results for this BY PCR CDT procedure are i n the results section. WET PREPARATION STAT 01/13/2022 3:12 AM Result s for this CDT procedure are i n the results section. NEISSERIA GONORRHOEAE STAT 01/13/2022 3:12 AM Results for this PCR CDT procedure are i n the results section. CHLAMYDIA TRACHOMATIS STAT 01/13/2022 3:12 AM Results for this PCR CDT procedure are i n the results section. ROUTINE UA WITH STAT 01/13/2022 3:02 AM Result s for this MICROSCOPIC REFLEX TO CDT proced ure are in CULTURE the results section. URINE CULTURE STAT 01/13/2022 3:02 AM Results for this CDT procedure are i n the results section. CBC WITH PLATELETS STAT 01/13/2022 2:56 AM Res ults for this AND DIFFERENTIAL CDT procedure a re in the results section. CBC WITH PLATELETS & STAT 01/13/2022 2:56 AM R esults for this DIFFERENTIAL CDT procedure are i n the results section. HCG QUALITATIVE STAT 01/13/2022 2:56 AM Result s for this CDT procedure are i n the results section. BASIC METABOLIC PANEL STAT 01/13/2022 2:56 AM Results for this CDT procedure are i n the results section. documented in this encounter Results US Pelvis Cmplt w Transvag & Doppler LmtPel Duplex Limited (01/13/2022 4:14 AM CDT) Anatomical Region Laterality Modality Abdomen/Pelvis Ultrasound Specimen (Source) Anatomical Collection Method Collection Time Re ceived Time Location / / Volume Laterality 01/13/2022 4:14 AM CDT Impressions 01/13/2022 4:22 AM CDT IMPRESSION: ?? 4.2 x 5.4 x 4.3 cm left ovarian complex cyst, the cyst is predominantly anechoic a solid nodule seen within the wall the ovary, no flow is seen within the nodule on Doppler evaluation. Follow-up per guidelines below. COMPLEX INDETERMINATE CYSTS: Premenopausal: Less than or equal to 3 cm: Consider phy siologic. Greater than 3 cm: 8-12 week follow up. Postmenopausal: Any complex cyst: Surgical consultation. REFERENCE: Management of Asymptomatic Ovarian and O ther Adnexal Cysts Imaged at US: Society of Radiologists in Ultrasound Consensus Conference Statement. Radiology December 2009; [phone]. 1. ??Simple Adnexal Cysts: SRU Consensus Conference Update on Follow-up and Reporting. Radiology December 2018. [phone]. Narrative 01/13/2022 4:22 AM CDT EXAM: US PELVIS COMPLETE W TRANSVAGINAL AND DOPPLER LIMITED LOCATION: [facility] DATE/TIME: 01/13/2022 4:14 AM INDICATION: Pelvic pain COMPARISON: None. TECHNIQUE: Transabdominal scans were per formed. Endovaginal ultrasound was performed to better visualize the adnexa. Color flow with spectral Doppler and waveform analysis performed. FINDINGS: UTERUS: 7.1 x 3.8 x 6.6 cm. Normal in si ze and position with no masses. ENDOMETRIUM: 5.5 mm. Normal smooth endom etrium. RIGHT OVARY: 5.4 x 1.4 x 2.1 cm. Normal with arterial and venous duplex flow identified. LEFT OVARY: 5.6 x 6.1 x 3.8 cm cm. Arter ial and venous duplex flow identified. A 4.2 x 5.4 x 4.3 cm complex cyst is seen within the left ovary, the cyst is predominantly anechoic with a solid nodule seen within the wall of the ovary, on Doppler evaluation no internal flow is seen with in the nodule. No significant free fluid. Procedure Note Hemant Arnold MD - 01/13/2022Formattin g of this note might be different from the original. EXAM: US PELVIS COMPLETE W TRANSVAGINAL AND DOPPLER LIMITED LOCATION: [facility] DATE/TIME: 01/13/2022 4:14 AM INDICATION: Pelvic pain COMPARISON: None. TECHNIQUE: Transabdominal scans were per formed. Endovaginal ultrasound was performed to better visualize the adnexa. Color flow with spectral Doppler and waveform analysis performed. FINDINGS: UTERUS: 7.1 x 3.8 x 6.6 cm. Normal in si ze and position with no masses. ENDOMETRIUM: 5.5 mm. Normal smooth endom etrium. RIGHT OVARY: 5.4 x 1.4 x 2.1 cm. Normal with arterial and venous duplex flow identified. LEFT OVARY: 5.6 x 6.1 x 3.8 cm cm. Arter ial and venous duplex flow identified. A 4.2 x 5.4 x 4.3 cm complex cyst is seen within the left ovary, the cyst is predominantly anechoic with a solid nodule seen within the wall of the ovary, on Doppler evaluation no internal flow is seen with in the nodule. No significant free fluid. IMPRESSION: 4.2 x 5.4 x 4.3 cm left ovarian complex cyst, the cyst is predominantly anechoic a solid nodule seen within the wall the ovary, no flow is seen within the nodule on Doppler evaluation. Follow-up per guidelines below. COMPLEX INDETERMINATE CYSTS: Premenopausal: Less than or equal to 3 cm: Consider phy siologic. Greater than 3 cm: 8-12 week follow up. Postmenopausal: Any complex cyst: Surgical consultation. REFERENCE: Management of Asymptomatic Ovarian and O ther Adnexal Cysts Imaged at US: Society of Radiologists in Ultrasound Consensus Conference Statement. Radiology December 2009; [phone]. 1. Simple Adnexal Cysts: SRU Consensus C onference Update on Follow-up and Reporting. Radiology December 2018. [phone]. Rosalind Simmons DO G US ORDERABLES Trichomonas vaginalis by PCR (01/13/2022 3:12 AM CDT) [facility] gist Method Time Signature Trichomonas Not Detected Not 01/13/2022 [facility] vaginalis by Detected 6:42 AM CDT LABORATORY PCR Specimen Anatomical Collection Method Collection Time Receive d Time (Source) Location / / Volume Laterality Swab VAGINAL STRUCTURE Non-blood 01/13/2022 3:12 AM 09/2021 3:20 / Unknown Collection / CDT AM CDT Unknown Narrative [facility] LABORATORY - 01/13/2022 6:42 AM C DT The [employer] Xpert TV Assay, performed on the [employer]?? Instrument Systems, is a qualitative in vitro diagnostic test for the detection of Trichomonas vaginalis genomic DNA. The test utilizes automated real-time polymerase chain reaction (PCR). The Xpert TV Assay uses female and male urine specimens, endocervical swab specimens, or patient-collected vaginal swab specim ens (collected in a clinical setting). The Xpert TV Assay is intended to aid in the diagnosis of trichomoniasis in symptomatic or asymptomatic individuals. Rosalind Simmons DO LAB - MICRO GENERAL ORDERABL ES Performing Organization Address [facility] Phon e Number [facility] LABORATORY [facility] [place] [phone] Diag. Lab [address] [facility] [address] Chlamydia trachomatis PCR (01/13/2022 3:12 AM CDT) [facility] Method Time Signature Chlamydia Negative Negative 01/14/2022 [facility] trachomatis 11:17 AM CDT LABORATORY Comment: A negative result by transcript ion mediated amplification does not preclude the presence of C. trachomatis infection because results are dependent on proper and adequate collection, absence of inhibito rs and sufficient rRNA to be detected. Specimen Anatomical Collection Method Collection Time Receive d Time (Source) Location / / Volume Laterality Swab VAGINAL STRUCTURE Non-blood 01/13/2022 3:12 AM 09/2021 3:20 / Unknown Collection / CDT AM CDT Unknown Rosalind Simmons DO LAB - MICRO GENERAL ORDERABL ES Performing Organization Address [facility] Phon e Number [facility] LABORATORY [facility] [place] [address] Diag. Lab [address] Neisseria gonorrhoeae PCR (01/13/2022 3:12 AM CDT) [employer] Method Time Signature Neisseria Negative Negative 01/14/2022 [facility] gonorrhoeae 11:17 AM CDT LABORATORY Comment: Negative for N. gonorrhoeae rRN A by supervisor gluing mediated amplification. A negative result by supervisor gluing mediate d amplification does not preclude the presence of C. trachomatis infection bec ause results are dependent on proper and adequate collection, absence of inhibito rs and sufficient rRNA to be detected. Specimen Anatomical Collection Method Collection Time Receive d Time (Source) Location / / Volume Laterality Swab VAGINAL STRUCTURE Non-blood 01/13/2022 3:12 AM 09/2021 3:20 / Unknown Collection / CDT AM CDT Unknown Rosalind Simmons DO LAB - MICRO GENERAL ORDERABL ES Performing Organization Address City/State/ZIP Code Phon e Number [facility] LABORATORY [facility] [place] [phone] Diag. Lab [address] (ABNORMAL) Wet prep (01/13/2022 3:12 AM CDT) Analysis Performed At Patho logist Time Signature Trichomonas Absent Absent STONE 01/13/2022 LABORATORY 3:38 AM CDT Yeast Absent Absent STONE 01/13/2022 LABORATORY 3:38 AM CDT Clue Cells Absent Absent STONE 01/13/2022 LABORATORY 3:38 AM CDT WBCs/high power 2+ (A) None STONE 01/13/2022 LABORATORY field 3:38 AM CDT Specimen Anatomical Collection Method Collection Time Receive d Time (Source) Location / / Volume Laterality Swab VAGINAL STRUCTURE Non-blood 01/13/2022 3:12 AM 09/2021 3:20 / Unknown Collection / CDT AM CDT Unknown Rosalind Simmons DO LAB - MICRO GENERAL ORDERABL ES Performing Organization Address City/[facility] Code Ph[place] [address] Care Lab [address] Lab (1st floor, no room number) Urine Culture (01/13/2022 3:02 AM CDT) Patholo gist Method Time Signature Culture 50,000-100,000 STONE 01/14/2022 [facility] CFU/mL Mixture 7:00 AM CDT LABORATORY of urogenital zaira Specimen Anatomical Collection Method Collection Time Receive d Time (Source) Location / / Volume Laterality Urine MID-STREAM URINE Non-blood 01/13/2022 3:02 AM 01/13 3:19 SPECIMEN / Unknown Collection / CDT AM CDT Unknown Rosalind E Iris DO LAB - MICRO GENERAL ORDERABL ES Performing Organization Address City/State/ZIP Code Phon e Number [facility] LABORATORY [facility] [place] [address] Diag. Lab [address] (ABNORMAL) UA with Microscopic reflex to Culture (01/13/2022 3:02 AM CDT) [facility] Method Time Signature Color Urine Light Colorless, 01/13/2022 [facility] LABORATORY Yellow Straw, 3:19 AM CDT Light Yellow, Yellow Appearance Urine Clear Clear 01/13/2022 LABORATOR Y 3:19 AM CDT Glucose Urine Negative Negative 01/13/2022 LABORATORY mg/dL 3:19 AM CDT Bilirubin Urine Negative Negative 01/13/2022 LABORATORY 3:19 AM CDT Ketones Urine Negative Negative 01/13/2022 LABORATORY mg/dL 3:19 AM CDT Specific [place] 1.026 1.003 - 01/13/2022 LABORATOR Y Urine 1.035 3:19 AM CDT Blood Urine Negative Negative 01/13/2022 LABORATORY 3:19 AM CDT pH Urine 6.5 5.0 - 7.0 01/13/2022 LABORATORY 3:19 AM CDT Protein Albumin 20 (A) Negative 01/13/2022 LABORATORY Urine mg/dL 3:19 AM CDT Urobilinogen Normal Normal, 2.0 01/13/2022 LABORATORY Urine mg/dL 3:19 AM CDT Nitrite Urine Negative Negative 01/13/2022 [facility] LABORATORY 3:19 AM CDT Leukocyte Moderate Negative 01/13/2022 LABORATORY Esterase Urine (A) 3:19 AM CDT Bacteria Urine Few (A) None Seen 01/13/2022 [facility] LABORATORY /HPF 3:19 AM CDT Mucus Urine Present (A) None Seen 01/13/2022 LABORATORY /LPF 3:19 AM CDT RBC Urine 1 <=2 /HPF 01/13/2022 [facility] LABORATORY 3:19 AM CDT WBC Urine 3 <=5 /HPF 01/13/2022 [facility] LABORATORY 3:19 AM CDT Squamous 5 (H) <=1 /HPF 01/13/2022 LABORATORY Epithelials 3:19 AM CDT Urine Specimen Anatomical Collection Method Collection Time Receive d Time (Source) Location / / Volume Laterality Urine MID-STREAM URINE Non-blood 01/13/2022 3:02 AM 01/13 3:12 SPECIMEN / Unknown Collection / CDT AM CDT Unknown Narrative LABORATORY - 01/13/2022 3:19 AM CDT Urine Culture ordered based on laborator y criteria Rosalind Simmons DO LAB - URINE ORDERABLES Performing Organization Address City/State/ZIP Code [place] [phone] Care Lab [address] Lab (1st floor, no room number) CBC with platelets and differential (01/13/2022 2:56 AM CDT) Analysis Performed At Patho logist Time Signature WBC Count 8.3 4.0 - 11.0 01/13/2022 [facility] LABORATORY 10e3/uL 3:15 AM CDT RBC Count 4.20 3.80 - 01/13/2022 [facility] LABORATORY 5.20 3:15 AM CDT 10e6/uL Hemoglobin 12.4 11.7 - 01/13/2022 [facility] LABORATORY 15.7 g/dL 3:15 AM CDT Hematocrit 38.1 35.0 - 01/13/2022 [facility] LABORATORY 47.0 % 3:15 AM CDT MCV 91 78 - 100 01/13/2022 [facility] LABORATORY fL 3:15 AM CDT MCH 29.5 26.5 - 01/13/2022 [facility] LABORATORY 33.0 pg 3:15 AM CDT MCHC 32.5 31.5 - 01/13/2022 [facility] LABORATORY 36.5 g/dL 3:15 AM CDT RDW 11.7 10.0 - 01/13/2022 [facility] LABORATORY 15.0 % 3:15 AM CDT Platelet Count 265 150 - 450 01/13/2022 [facility] LABORATORY 10e3/uL 3:15 AM CDT % Neutrophils 59 % 01/13/2022 [facility] LABORATORY 3:15 AM CDT % Lymphocytes 33 % 01/13/2022 [facility] LAB[facility]AT[facility] 3:15 AM CDT % Monocytes 6 % 01/13/2022 [facility] LABORATORY 3:15 AM CDT % Eosinophils 2 % 01/13/2022 [facility] LABORATORY 3:15 AM CDT % Basophils 0 % 01/13/2022 [facility] LABORATORY 3:15 AM CDT % Immature 0 % 01/13/2022 [facility] LAB[facility]ATORY Granulocytes 3:15 AM CDT NRBCs per 100 WBC 0 <1 /100 01/13/2022 [facility] LABORATO RY 3:15 AM CDT Absolute 5.0 1.6 - 8.3 01/13/2022 [facility] LABORATORY Neutrophils 10e3/uL 3:15 AM CDT Absolute 2.7 0.8 - 5.3 01/13/2022 [facility] LAB[facility]ATORY Lymphocytes 10e3/uL 3:15 AM CDT Absolute 0.5 0.0 - 1.3 01/13/2022 [facility] LABORATORY Monocytes 10e3/uL 3:15 AM CDT Absolute 0.1 0.0 - 0.7 01/13/2022 [facility] LABORATORY Eosinophils 10e3/uL 3:15 AM CDT Absolute 0.0 0.0 - 0.2 01/13/2022 [facility] LABORATORY Basophils 10e3/uL 3:15 AM CDT Absolute Immature 0.0 <=0.4 01/13/2022 [facility] LABORATO RY Granulocytes 10e3/uL 3:15 AM CDT Absolute NRBCs 0.0 10e3/uL 01/13/2022 [facility] LABORATORY 3:15 AM CDT Specimen Anatomical Collection Method / Collection Time Recei terra Time (Source) Location / Volume Laterality Blood STRUCTURE OF RIGHT Venipuncture / 01/13/2022 2:56 10/0 09/2021 3:12 UPPER LIMB / Unknown AM CDT AM CDT Unknown Rosalind Simmons DO LAB - BLOOD ORDERABLES Performing Organization Address City/State/ZIP Code Phon e Number [facility] [place] [id number] [facility] [address] Lab (1st floor, no room number) HCG QUALitative (blood) (01/13/2022 2:56 AM CDT) [facility] gist Method Time Signature hCG Serum Negative Negative STONE 01/13/2022 [facility] Qualitative 3:49 AM CDT Comment: This test is for screening purp oses. Results should be interpreted along with the clinical picture. Confirmation testing is available if warranted by ordering [id number], HCG Quantitative . Specimen Anatomical Collection Method / Collection Time Recei terra Time (Source) Location / Volume Laterality Blood STRUCTURE OF RIGHT Venipuncture / 01/13/2022 2:56 09/2021 3:13 UPPER LIMB / Unknown AM CDT AM CDT Unknown Rosalindgiovanni Simmons LAB - BLOOD ORDERABLES Performing Organization Address City/State/ZIP Code Phon [place] [address] [facility] [address] Lab (1st floor, no room number) (ABNORMAL) Basic metabolic panel (01/13/2022 2:56 AM CDT) Analysis Performed At Patho logist Time Signature Sodium 138 136 - 145 01/13/2022 LABORATORY mmol/L 3:30 AM CDT Potassium 4.1 3.4 - 5.3 01/13/2022 LABORATORY mmol/L 3:30 AM CDT Chloride 102 98 - 107 01/13/2022 LABORATORY mmol/L 3:30 AM CDT Carbon Dioxide 27 22 - 29 01/13/2022 LABORATORY (CO2) mmol/L 3:30 AM CDT Anion Gap 9 7 - 15 01/13/2022 LABORATORY mmol/L 3:30 AM CDT Urea Nitrogen 14.1 6.0 - 20.0 01/13/2022 LABORATORY mg/dL 3:30 AM CDT Creatinine 0.91 0.51 - 01/13/2022 LABORATORY 0.95 mg/dL 3:30 AM CDT Calcium 9.0 8.6 - 10.0 01/13/2022 LABORATORY mg/dL 3:30 AM CDT Glucose 106 (H) 70 - 99 01/13/2022 LABORATORY mg/dL 3:30 AM CDT GFR Estimate 90 >60 01/13/2022 LABORATORY mL/min/1.7 3:30 AM CDT 3m2 Comment: Effective March 30, 2021 eGF Rcr in adults is calculated using the 2020 CKD-EPI creatinine equation which includ es age and gender (Felicitas et al., NEJ, DOI: 10.1056/ZWLJgn0950058) Specimen Anatomical Collection Method / Collection Time Recei terra Time (Source) Location / Volume Laterality Blood STRUCTURE OF RIGHT Venipuncture / 01/13/2022 2:56 09/2021 3:12 UPPER LIMB / Unknown AM CDT AM CDT Unknown Rosalind Simmons DO LAB - BLOOD ORDERABLES Performing Organization Address City/State/[place] [address] [facility] [address] Lab (1st floor, no room number) documented in this encounter Visit Diagnoses Diagnosis Pelvic pain Unspecified symptom associated with fema le genital organs Cyst of left ovary Other and unspecified ovarian cyst documented in this encounter Administered Medications Inactive Administered Medications - up to 3 most recent administrations Medication Order MAR Action Action Date Dose Rate Site acetaminophen (TYLENOL) tablet 500 Given 01/13/2022 4:18 AM CDT 500 mg mg 500 mg, Oral, ONCE, On Rose 01/13/22 at 0420, For 1 dose, Maximum acetaminophen dose from all sources = 75 mg/kg/day not to exceed 4 gram ketorolac (TORADOL) injection 15 mg Given 01/13/2022 3:01 AM CDT 15 mg 15 mg, Intravenous, ONCE, On Rose 01/13/22 at 0245, For 1 dose, Can cause pain on injection. If ordered intravenously (IV) : administer through a running maintenance fluid over 1 minute followed by a flush. If patient complains of pain on injection, may dilute 15-30 mg in 5 mL and push over 1 to 2 minutes. documented in this encounter Active and Recently Administered Medications Times are shown in CDT. Scheduled Medication Order 01/11/2022 01/12/2022 01/13/2022 acetaminophen (TYLENOL) tablet 500 mg (COMPLETED) 041 (Given - Provider: Dano Serrano RN) 500 mg, Oral, ONCE, On Rose 01/13/22 at 04 20, For 1 dose, Maximum acetaminophen dose from all sources = 75 mg/kg/day not to exceed 4 gram ketorolac (TORADOL) injection 15 mg (COMPLETED) 300 (Given - Provider: Dano Serrano RN) 15 mg, Intravenous, ONCE, On Rose 01/13/22 at 0245, For 1 dose, Can cause pain on injection. If ordered intravenously (IV) : administer through a running maintenance fluid over 1 minute followed by a flus h. If patient complains of pain on injec tion, may dilute 15-30 mg in 5 mL and push over 1 to 2 minutes. documented in this encounter Care Teams Manager Treasury Relationship Specialty Start Date End Date System, Provider Not In PCP - General Clinic 01/13/22 01/13/22 Mimi Son MBBS Assigned Pediatric Specialist [facility] [id number] [facility] [id number] [facility] [place], [place] [id number] documented as of this encounter
--- OUTSIDE RECORDS SUMMARY | 2022-01-20 19:45 | XMS_ITS | Encounter Summary ---
:1995 Author Organization [facility] Address [address] [place] [address] Care Team Providers Name Role Phone [facility] Primary Care Provider [phone] Mimi Son Unavailable Encounter Details Date Type Department Care Team Description 12/30/2020 Travel Social History Tobacco Use Types Packs/Day Years [...] / COVID-19? documented as of this encounter Plan of Treatment Not on filedocumented as of this encounter Visit Diagnoses Not on filedocumented in this encounter Care Teams Field Adjuster Relationship Specialty Start Date End Date [facility] PCP - General 01/03/17 04/25/21 [id number] [place] [phone] Mimi Son MBBS Assigned Pediatric Specialist 03/22/20 [address] [id number] [place] [address] documented as of this encounter
--- OUTSIDE RECORDS SUMMARY | 2022-01-20 19:45 | XMS_ITS | Encounter Summary ---
:1995 Author Organization [facility] Address [address] [facility] [place] [address] Care Team Providers Name Role Phone Mimi Son Unavailable [facility] [phone] Reason for Visit Reason Comments Rectal Bleeding Mucous-bloody stools with cl ots todays, symptoms began 2-3 weeks ago. Now 3-4 daily with concurren t Bilat. abd. cramping. COVID + on . Encounter Details Date Type Department Care Team Description 04/26/2021 - Emergency [facility] Julissa Owen MD Bright red blood per 04/27/2021 [facility] Emergency [facility] rectum Dept PA [address] [place] [address] [place] [address] [phone] Social History Tobacco Use Types Packs/Day Years [...] month, have you been in contact with Yes 04/26/2021 7:32 PM SPECIAL EDUCATION PROFESSIONAL someone who was confirmed or suspected to have Coronavirus / COVID-19? documented as of this encounter Last Filed Vital Signs Vital Sign Reading Time Taken Comments Blood Pressure 117/81 04/27/2021 1:47 AM SPECIAL EDUCATION PROFESSIONAL Pulse 80 04/27/2021 1:47 AM SPECIAL EDUCATION PROFESSIONAL Temperature 37.6 ??C (99.6 ??F) 04/26/2021 7:52 PM SPECIAL EDUCATION PROFESSIONAL Respiratory Rate 20 04/27/2021 1:47 AM SPECIAL EDUCATION PROFESSIONAL Oxygen Saturation 98% 04/27/2021 1:47 AM SPECIAL EDUCATION PROFESSIONAL Inhaled Oxygen Concentration - - Weight 95.3 kg (210 lb) 04/26/2021 7:52 PM SPECIAL EDUCATION PROFESSIONAL Height 170.2 cm (5' 7) 04/26/2021 7:52 PM SPECIAL EDUCATION PROFESSIONAL Body Mass Index 32.89 04/26/2021 7:52 PM SPECIAL EDUCATION PROFESSIONAL documented in this encounter Discharge Instructions Discharge InstructionsJulissa Owen MD - 04/27/2021 4:04 AM CST Follow-up with gastroenterology for further investigation into the cause of your bleeding. Return with worsening symptoms or new concerns. Zofran as needed for nausea and vomiting. Lots of fluids. Lots of fiber to prevent constipation. IAL EDUCATION PROFESSIONAL AttachmentsThe following attachments cannot be sent through Care Everywhere. Rectal Bleeding, Evaluating and Treating (Grenadian)documented in this encounter Medications at Time of Discharge Medication Sig Dispensed Refills Start Date End Date ondansetron (ZOFRAN ODT) 4 Take 1 tablet (4 mg) 10 tablet 0 04/27/2021 MG ODT tab by mouth every 8 hours as needed for nausea Multiple Vitamins-Minerals Take 2 chew tab by 0 (MULTIVITAMIN GUMMIES mouth daily ADULTS PO) documented as of this encounter ED Notes Kendrick Tello RN - 04/27/2021 1:47 AM CST Patient called in requesting a letter stating the need for an urgent visit to [facility]. Patient gave permission to review her chart. I discussed with the patient Dr Owen's note and that it did not mention the need for an urgent visit. Patient acknowledges that she may have inferred the urgency of the visit to [facility]. She will call [facility] to schedule first available. ED discharge instructions werereiterated and patient acknowledged. IAL EDUCATION PROFESSIONAL Shayna Sanches RN - 04/26/2021 11:57 PM CST Bed: ED10 Expected date: Expected time: Means of arrival: Comments: Pt that most likely wont need admitted IAL EDUCATION PROFESSIONAL Austen Marsh RN - 04/26/2021 7:50 PM CST Mucous-bloody stools with clots todays, symptoms began 2-3 weeks ago. Now 3-4 daily with concurrent Bilat. abd. cramping. IAL EDUCATION PROFESSIONAL Julissa Owen MD - 04/26/2021 7:32 PM CST Images from the original note were not included. History Chief Complaint: Rectal Bleeding The history is provided by the patient. Malinda Medina is a 25 year old female with history of tetralogy of Fallot who presents with bright red blood per rectum. For 3 weeks she has had painless blood when she wipes after defecating as well as blood in the stool. Incidentally 6 days ago she developed some mild symptoms of COVID-19 and 5 days ago tested positive for COVID-19. She then traveled to [place] and when she was there she felt her bright red blood per rectum was worsening, as per photographs below, so she returned to [facility] my insurance only works in [place]. Her stools themselves are small, formed balls without diarrhea. She describes intermittent lower abdominal cramping, bloating, intermittent nausea without vomiting, and some dizziness today. She also felt warm when she was driving home but has not had a documented fever. She feels her COVID-19 symptoms are improving. She has reached out to gastroenterology who recommended she be evaluated in the emergency department because of her COVID-19. She has ne ulices had a colonoscopy. She is certain the blood is not from her vagina and is due to start menstruating soon. Review of Systems Constitutional: Negative for activity change, appetite change and fever. Gastrointestinal: Positive for abdominal distention (bloated sensation), abdominal pain (intermittent cramping), blood in stool and nausea. Negative for diarrhea, rectal pain and vomiting. Genitourinary: Negative for menstrual problem and vaginal bleeding. Neurological: Positive for dizziness. All other systems reviewed and are negative. 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 Has a boyfriend. Physical Exam Patient Vitals for the past 24 hrs: BP Temp Temp src Pulse Resp SpO2 Height Weight 04/27/21 0147 117/81 -- -- 80 20 98 % -- -- 04/27/21 0003 122/83 -- -- 74 16 100 % -- -- 04/26/21 1952 117/70 99.6 ??F (37.6 ??C) Temporal 97 16 98 % 1.702 m (5' 7) 95.3 kg (210 lb) Physical Exam General: Well-developed and well-nourished. Well appearing young woman. Cooperative. Head: Atraumatic. Eyes: Conjunctivae, lids, and sclerae are normal. Neck: Supple. Normal range of motion. CV: Regular rate and rhythm. Normal heart sounds with no murmurs, rubs, or gallops detected. Resp: No respiratory distress. Clear to auscultation bilaterally without decreased breath sounds, wheezing, rales, or rhonchi. GI: Soft. Non-distended. Non-tender. Rectal: No perianal masses or tenderness. No hemorrhoids. No fissure. CATHLEEN without return of blood. No palpable masses. MS: Normal ROM. Skin: Warm. Non-diaphoretic. No pallor. Neuro: Awake. A&Ox3. Normal strength. Psych: Normal mood and affect. Normal speech. Vitals reviewed. Emergency Department Course Laboratory: Labs Ordered and Resulted from Time of ED Arrival to Time of ED Departure BASIC METABOLIC PANEL - Normal Result Value Sodium 136 Potassium 3.6 Chloride 103 Carbon Dioxide (CO2) 27 Anion Gap 6 Urea Nitrogen 13 Creatinine 0.79 Calcium 9.1 Glucose 87 GFR Estimate >90 HEPATIC FUNCTION PANEL - Normal Bilirubin Total 0.2 Bilirubin Direct <0.1 Protein Total 7.8 Albumin 3.7 Alkaline Phosphatase 71 AST 12 ALT 21 LIPASE - Normal Lipase 103 HCG QUALITATIVE - Normal hCG Serum Qualitative Negative CBC WITH PLATELETS AND DIFFERENTIAL WBC Count 9.1 RBC Count 4.63 Hemoglobin 13.3 Hematocrit 41.7 MCV 90 MCH 28.7 MCHC 31.9 RDW 12.0 Platelet Count 270 % Neutrophils 60 % Lymphocytes 33 % Monocytes 6 % Eosinophils 1 % Basophils 0 % Immature Granulocytes 0 NRBCs per 100 WBC 0 Absolute Neutrophils 5.4 Absolute Lymphocytes 3.1 Absolute Monocytes 0.5 Absolute Eosinophils 0.1 Absolute Basophils 0.0 Absolute Immature Granulocytes 0.0 Absolute NRBCs 0.0 Emergency Department Course: Reviewed: I reviewed nursing notes, vitals, past medical history, and Care Everywhere. Assessments: 0002 I obtained history and examined the patient as noted above. 0141 I rechecked the patient and explained findings. Interventions: 0031 Zofran 4 mg IV 0031 NS 1 L IV Disposition: The patient was discharged home. Impression & Plan Medical Decision Making: Malinda is a 25-year-old female who has had 3 weeks of bright red blood per rectum. Reportedly it worsened in the last couple of days with quantities described by photographs above which prompted her visit. She has only intermittent abdominal cramping pain and here has no reproducible abdominal tenderness. With this benign abdomen, imaging can safely be deferred. She has a normal CATHLEEN and there are no external hemorrhoids. Laboratory studies are reassuring including hemoglobin of 13.3 which is actually improved from value at an outside facility ER visit 04/02/2021 when it was 11.5. She was given IV fluids as well as Zofran as she did describe some nausea. This could be related to her bright red blood per rectum although she is also incidentally COVID-19 positive within the last week and her nausea as well as the report of dizziness is likely related to that illness. At this point she has a reassuring physical exam and emergent work-up. As such, she is appropriate for discharge. I have recommended she continue Zofran as she needs for nausea and vomiting with lots of fluids. We discussed avoidance of constipation as this could certainly make her bright red blood per rectum worse if it is related to constipation and internal hemorrhoids. I encouraged her to follow-up with gastroenterology as she will likely require a sigmoidoscopy or colonoscopy. She does understand to return if she has worsening symptoms or new concerns. All questions answered. Amenable to discharge. Diagnosis: ICD-10-CM 1. Bright red blood per rectum K62.5 Discharge Medications: Discharge Medication List as of 04/27/2021 1:42 AM START taking these medications Details ondansetron (ZOFRAN ODT) 4 MG ODT tab Take 1 tablet (4 mg) by mouth every 8 hours as needed for nausea, Disp-10 tablet, R-0, Local Print Scribe Disclosure: I, Jessica Martinez, am serving as a scribe at 12:01 AM on 04/27/2021 to document services personally performed by Julissa Owen MD based on my observations and the provider's statements to me. Julissa Owen MD 04/28/212042 IAL EDUCATION PROFESSIONAL documented in this encounter Plan of Treatment Not on filedocumented as of this encounter Procedures Procedure Name Priority Date/Time Associated Comments Diagnosis EXTRA TUBE STAT 04/26/2021 8:00 PM Results f or this SPECIAL EDUCATION PROFESSIONAL procedure are i n the results section. EXTRA BLOOD BANK STAT 04/26/2021 8:00 PM Resul ts for this PURPLE TOP TUBE SPECIAL EDUCATION PROFESSIONAL procedure ar e in the results section. EXTRA PURPLE TOP TUBE STAT 04/26/2021 8:00 PM Results for this SPECIAL EDUCATION PROFESSIONAL procedure are i n the results section. EXTRA GREEN TOP STAT 04/26/2021 8:00 PM Result s for this (LITHIUM HEPARIN) SPECIAL EDUCATION PROFESSIONAL procedure are in TUBE the results section. EXTRA RED TOP TUBE STAT 04/26/2021 8:00 PM Res ults for this SPECIAL EDUCATION PROFESSIONAL procedure are i n the results section. CBC WITH PLATELETS STAT 04/26/2021 8:00 PM Res ults for this AND DIFFERENTIAL SPECIAL EDUCATION PROFESSIONAL procedure a re in the results section. CBC WITH PLATELETS & STAT 04/26/2021 8:00 PM R esults for this DIFFERENTIAL SPECIAL EDUCATION PROFESSIONAL procedure are i n the results section. LIPASE STAT 04/26/2021 8:00 PM Results f or this SPECIAL EDUCATION PROFESSIONAL procedure are i n the results section. HEPATIC FUNCTION Add-On 04/26/2021 8:00 PM Resul ts for this PANEL SPECIAL EDUCATION PROFESSIONAL procedure are i n the results section. HCG QUALITATIVE STAT 04/26/2021 8:00 PM Result s for this SPECIAL EDUCATION PROFESSIONAL procedure are i n the results section. BASIC METABOLIC PANEL STAT 04/26/2021 8:00 PM Results for this SPECIAL EDUCATION PROFESSIONAL procedure are i n the results section. documented in this encounter Results HCG qualitative Blood (04/26/2021 8:00 PM SPECIAL EDUCATION PROFESSIONAL) [facility] gist Method Time Signature hCG Serum Negative Negative STONE 04/27/2021 LABORATORY Qualitative 12:49 AM SPECIAL EDUCATION PROFESSIONAL Comment: This test is for screening purp oses. Results should be interpreted along with the clinical picture. Confirmation testing is available if warranted by ordering [id number], HCG Quantitative . Specimen Anatomical Collection Method / Collection Time Recei terra Time (Source) Location / Volume Laterality Blood BLOOD SPECIMEN / Venipuncture / 04/26/2021 8:00 2021 8:14 Unknown Unknown PM SPECIAL EDUCATION PROFESSIONAL PM SPECIAL EDUCATION PROFESSIONAL Julissa Owen MD LAB - BLOOD ORDERABLES Performing Organization Address City/State/ZIP Code Phon e Number LABORATORY [place] [address] [facility] [address], [address] Lipase (04/26/2021 8:00 PM SPECIAL EDUCATION PROFESSIONAL) athologist Signature Lipase 103 73 - 393 U/L 04/27/2021 LABORATORY 12:46 AM SPECIAL EDUCATION PROFESSIONAL Specimen Anatomical Collection Method / Collection Time Recei terra Time (Source) Location / Volume Laterality Blood BLOOD SPECIMEN / Venipuncture / 04/26/2021 8:00 2021 8:14 Unknown Unknown PM SPECIAL EDUCATION PROFESSIONAL PM SPECIAL EDUCATION PROFESSIONAL Julissa Owen MD LAB - BLOOD ORDERABLES Performing Organization Address City/State/ZIP Code Phon e Number LABORATORY [place] [address] [facility] [address], [address] Hepatic panel (04/26/2021 8:00 PM SPECIAL EDUCATION PROFESSIONAL) athologist Signature Bilirubin Total 0.2 0.2 - 1.3 04/27/2021 LABORATORY mg/dL 12:46 AM SPECIAL EDUCATION PROFESSIONAL Bilirubin Direct <0.1 0.0 - 0.2 04/27/2021 LABORATOR Y mg/dL 12:46 AM SPECIAL EDUCATION PROFESSIONAL Protein Total 7.8 6.8 - 8.8 04/27/2021 LABORATORY g/dL 12:46 AM SPECIAL EDUCATION PROFESSIONAL Albumin 3.7 3.4 - 5.0 04/27/2021 LABORATORY g/dL 12:46 AM SPECIAL EDUCATION PROFESSIONAL Alkaline 71 40 - 150 04/27/2021 LABORATORY Phosphatase U/L 12:46 AM SPECIAL EDUCATION PROFESSIONAL AST 12 0 - 45 U/L 04/27/2021 LABORATORY 12:46 AM SPECIAL EDUCATION PROFESSIONAL ALT 21 0 - 50 U/L 04/27/2021 LABORATORY 12:46 AM SPECIAL EDUCATION PROFESSIONAL Specimen Anatomical Collection Method / Collection Time Recei terra Time (Source) Location / Volume Laterality Blood BLOOD SPECIMEN / Venipuncture / 04/26/2021 8:00 2021 8:14 Unknown Unknown PM SPECIAL EDUCATION PROFESSIONAL PM SPECIAL EDUCATION PROFESSIONAL Julissa Owen MD LAB - BLOOD ORDERABLES Performing Organization Address City/State/ZIP Code Ph[place] [address] [phone] [facility] [address], [address] CBC with platelets and differential (04/26/2021 8:00 PM SPECIAL EDUCATION PROFESSIONAL) Analysis Performed At Patho logist Time Signature WBC Count 9.1 4.0 - 11.0 04/26/2021 LABORATORY 10e3/uL 8:19 PM SPECIAL EDUCATION PROFESSIONAL RBC Count 4.63 3.80 - 04/26/2021 LABORATORY 5.20 8:19 PM SPECIAL EDUCATION PROFESSIONAL 10e6/uL Hemoglobin 13.3 11.7 - 04/26/2021 LABORATORY 15.7 g/dL 8:19 PM SPECIAL EDUCATION PROFESSIONAL Hematocrit 41.7 35.0 - 04/26/2021 LABORATORY 47.0 % 8:19 PM SPECIAL EDUCATION PROFESSIONAL MCV 90 78 - 100 04/26/2021 LABORATORY fL 8:19 PM SPECIAL EDUCATION PROFESSIONAL MCH 28.7 26.5 - 04/26/2021 LABORATORY 33.0 pg 8:19 PM SPECIAL EDUCATION PROFESSIONAL MCHC 31.9 31.5 - 04/26/2021 LABORATORY 36.5 g/dL 8:19 PM SPECIAL EDUCATION PROFESSIONAL RDW 12.0 10.0 - 04/26/2021 LABORATORY 15.0 % 8:19 PM SPECIAL EDUCATION PROFESSIONAL Platelet Count 270 150 - 450 04/26/2021 LABORATORY 10e3/uL 8:19 PM SPECIAL EDUCATION PROFESSIONAL % Neutrophils 60 % 04/26/2021 LABORATORY 8:19 PM SPECIAL EDUCATION PROFESSIONAL % Lymphocytes 33 % 04/26/2021 LABORATORY 8:19 PM SPECIAL EDUCATION PROFESSIONAL % Monocytes 6 % 04/26/2021 LABORATORY 8:19 PM SPECIAL EDUCATION PROFESSIONAL % Eosinophils 1 % 04/26/2021 LABORATORY 8:19 PM SPECIAL EDUCATION PROFESSIONAL % Basophils 0 % 04/26/2021 LABORATORY 8:19 PM SPECIAL EDUCATION PROFESSIONAL % Immature 0 % 04/26/2021 LABORATORY Granulocytes 8:19 PM SPECIAL EDUCATION PROFESSIONAL NRBCs per 100 WBC 0 <1 /100 04/26/2021 LABORATO RY 8:19 PM SPECIAL EDUCATION PROFESSIONAL Absolute 5.4 1.6 - 8.3 04/26/2021 LABORATORY Neutrophils 10e3/uL 8:19 PM SPECIAL EDUCATION PROFESSIONAL Absolute 3.1 0.8 - 5.3 04/26/2021 LABORATORY Lymphocytes 10e3/uL 8:19 PM SPECIAL EDUCATION PROFESSIONAL Absolute 0.5 0.0 - 1.3 04/26/2021 LABORATORY Monocytes 10e3/uL 8:19 PM SPECIAL EDUCATION PROFESSIONAL Absolute 0.1 0.0 - 0.7 04/26/2021 LABORATORY Eosinophils 10e3/uL 8:19 PM SPECIAL EDUCATION PROFESSIONAL Absolute 0.0 0.0 - 0.2 04/26/2021 LABORATORY Basophils 10e3/uL 8:19 PM SPECIAL EDUCATION PROFESSIONAL Absolute Immature 0.0 <=0.4 04/26/2021 LABORATO RY Granulocytes 10e3/uL 8:19 PM SPECIAL EDUCATION PROFESSIONAL Absolute NRBCs 0.0 10e3/uL 04/26/2021 LABORATORY 8:19 PM SPECIAL EDUCATION PROFESSIONAL Specimen Anatomical Collection Method / Collection Time Recei terra Time (Source) Location / Volume Laterality Blood BLOOD SPECIMEN / Venipuncture / 04/26/2021 8:00 2021 8:14 Unknown Unknown PM SPECIAL EDUCATION PROFESSIONAL PM SPECIAL EDUCATION PROFESSIONAL Julissa Owen MD LAB - BLOOD ORDERABLES Performing Organization Address City/State/ZIP Code [place] [address] [facility] [address], [address] Extra Blood Bank Purple Top Tube (04/26/2021 8:00 PM SPECIAL EDUCATION PROFESSIONAL) athologist Signature Hold Specimen [facility] 04/26/2021 BLOOD BANK 9:16 PM SPECIAL EDUCATION PROFESSIONAL Specimen Anatomical Collection Method / Collection Time Recei terra Time (Source) Location / Volume Laterality Blood BLOOD SPECIMEN / Venipuncture / 04/26/2021 8:00 2021 8:14 Unknown Unknown PM SPECIAL EDUCATION PROFESSIONAL PM SPECIAL EDUCATION PROFESSIONAL Julissa Owen MD LAB - BLOOD ORDERABLES Performing Organization Address City/State/ZIP Code Phon e Number BLOOD BANK [address] [place] [address] Extra Purple Top Tube (04/26/2021 8:00 PM SPECIAL EDUCATION PROFESSIONAL) athologist Signature Hold Specimen [facility] 04/26/2021 LABORATORY 9:16 PM SPECIAL EDUCATION PROFESSIONAL Specimen Anatomical Collection Method / Collection Time Recei terra Time (Source) Location / Volume Laterality Blood BLOOD SPECIMEN / Venipuncture / 04/26/2021 8:00 2021 8:14 Unknown Unknown PM SPECIAL EDUCATION PROFESSIONAL PM SPECIAL EDUCATION PROFESSIONAL Julissa Owen MD LAB - BLOOD ORDERABLES Performing Organization Address City/State/ZIP Code Phon e Number LABORATORY [place] [address] [phone] Care [facility] [address] 1[address], Room [address] Extra Green Top ([place] Heparin) Tube (04/26/2021 8:00 PM SPECIAL EDUCATION PROFESSIONAL) athologist Signature Hold Specimen [facility] 04/26/2021 LABORATORY 9:16 PM SPECIAL EDUCATION PROFESSIONAL Specimen Anatomical Collection Method / Collection Time Recei terra Time (Source) Location / Volume Laterality Blood BLOOD SPECIMEN / Venipuncture / 04/26/2021 8:00 2021 8:14 Unknown Unknown PM SPECIAL EDUCATION PROFESSIONAL PM SPECIAL EDUCATION PROFESSIONAL Julissa Owen MD LAB - BLOOD ORDERABLES Performing Organization Address City/State/ZIP Code Phon e Number LABORATORY [place] [address] Care Lab [address], Room [address] Extra Red Top Tube (04/26/2021 8:00 PM SPECIAL EDUCATION PROFESSIONAL) athologist Signature Hold Specimen [facility] 04/26/2021 LABORATORY 9:16 PM SPECIAL EDUCATION PROFESSIONAL Specimen Anatomical Collection Method / Collection Time Recei terra Time (Source) Location / Volume Laterality Blood BLOOD SPECIMEN / Venipuncture / 04/26/2021 8:00 2021 8:14 Unknown Unknown PM SPECIAL EDUCATION PROFESSIONAL PM SPECIAL EDUCATION PROFESSIONAL Julissa Owen MD LAB - BLOOD ORDERABLES Performing Organization Address City/State/ZIP Code [place] [address] [facility] [address], [address]B Basic metabolic panel (04/26/2021 8:00 PM SPECIAL EDUCATION PROFESSIONAL) athologist Signature Sodium 136 133 - 144 04/26/2021 LABORATORY mmol/L 9:08 PM SPECIAL EDUCATION PROFESSIONAL Potassium 3.6 3.4 - 5.3 04/26/2021 LABORATORY mmol/L 9:08 PM SPECIAL EDUCATION PROFESSIONAL Chloride 103 94 - 109 04/26/2021 LABORATORY mmol/L 9:08 PM SPECIAL EDUCATION PROFESSIONAL Carbon Dioxide 27 20 - 32 04/26/2021 LABORATORY (CO2) mmol/L 9:08 PM SPECIAL EDUCATION PROFESSIONAL Anion Gap 6 3 - 14 04/26/2021 LABORATORY mmol/L 9:08 PM SPECIAL EDUCATION PROFESSIONAL Urea Nitrogen 13 7 - 30 04/26/2021 LABORATORY mg/dL 9:08 PM SPECIAL EDUCATION PROFESSIONAL Creatinine 0.79 0.52 - 04/26/2021 LABORATORY 1.04 mg/dL 9:08 PM SPECIAL EDUCATION PROFESSIONAL Calcium 9.1 8.5 - 10.1 04/26/2021 LABORATORY mg/dL 9:08 PM SPECIAL EDUCATION PROFESSIONAL Glucose 87 70 - 99 04/26/2021 LABORATORY mg/dL 9:08 PM SPECIAL EDUCATION PROFESSIONAL GFR Estimate >90 >60 04/26/2021 LABORATORY mL/min/1.7 9:08 PM SPECIAL EDUCATION PROFESSIONAL 3m2 Comment: Effective March 30, 2021 eGF Rcr in adults is calculated using the 2020 CKD-EPI creatinine equation which includ es age and gender (Felicitas et al., NEJM, DOI: 10.1056/UZWBmp4729771) Specimen Anatomical Collection Method / Collection Time Recei terra Time (Source) Location / Volume Laterality Blood BLOOD SPECIMEN / Venipuncture / 04/26/2021 8:00 2021 8:14 Unknown Unknown PM SPECIAL EDUCATION PROFESSIONAL PM SPECIAL EDUCATION PROFESSIONAL Julissa Owen MD LAB - BLOOD ORDERABLES Performing Organization Address City/State/ZIP Code Phon e Number [facility] [phone] [facility] [address], [address] documented in this encounter Visit Diagnoses Diagnosis Bright red blood per rectum Hemorrhage of rectum and anus documented in this encounter Administered Medications Inactive Administered Medications - up to 3 most recent administrations Medication Order MAR Action Action Date Dose Rate Site 0.9% sodium chloride BOLUS New Bag 04/27/2021 12:31 AM 1,000 mLs 1000 mL/hr Intravenous, 1,000 mL, SPECIAL EDUCATION PROFESSIONAL ONCE, at 1,000 mL/hr, Administer over 1 Hours, On 04/27/21 at 0025, For 1 dose ondansetron (ZOFRAN) injection 4 mg Given 04/27/2021 12:31 AM SPECIAL EDUCATION PROFESSIONAL 4 mg 4 mg, Intravenous, ONCE, Administer over 2-5 Minutes, On 04/27/21 at 0025, For 1 dose, Irritant. documented in this encounter Active and Recently Administered Medications Times are shown in SPECIAL EDUCATION PROFESSIONAL. Scheduled Medication Order 04/25/2021 04/26/2021 04/27/2021 0.9% sodium chloride BOLUS (COMPLETED) 30 (New Bag - Provider: Shayna Sanches, RN)0142 (Stopped - Provider: Shayna Sanches, RN) Intravenous, 1,000 mL, ONCE, at 1,000 mL /hr, Administer over 1 Hours, On 04/27/21 at 0025, For 1 dose ondansetron (ZOFRAN) injection 4 mg (COMPLETED) 003 (Given - Provider: Shayna Sanches, RN) 4 mg, Intravenous, ONCE, Administer over 2-5 Minutes, On 04/27/21 at 0025, For 1 dose, Irritant. documented in this encounter Care Teams Knockdown Man Relationship Specialty Start Date End Date Sylvia Yu PCP - General 04/26/[address] [place] [address] [place] [id number] Mimi Son MBBS Assigned Pediatric Specialist 03/22/20 [facility] [id number] Provider [place], [place] [id number] documented as of this encounter
--- OUTSIDE RECORDS SUMMARY | 2022-01-20 19:45 | XMS_ITS | Encounter Summary ---
:1995 Author Organization [place] Address [address] [place] [address] Care Team Providers Name Role Phone Clinic, Bebeto Wagener Primary Care Provider [phone] Mimi Son Unavailable Reason for Visit Reason Comments Pelvic Pain Encounter Details Date Type Department Care Team Description 12/30/2020 - Emergency [facility] Terry Benitez Cys t of right ovary 12/31/2020 Kye Emergency MD Dept [facility] [address] [place] [id number] [place] [address] (Wo rk) Social History Tobacco Use Types Packs/Day Years [...] Sign Reading Time Taken Comments Blood Pressure 123/76 12/31/2020 3:00 AM CDT Pulse 71 12/31/2020 3:00 AM CDT Temperature 37.2 ??C (99 ??F) 12/30/2020 10:02 PM CDT Respiratory Rate 16 12/31/2020 12:00 AM CDT Oxygen Saturation 100% 12/31/2020 3:00 AM CDT Inhaled Oxygen Concentration - - Weight 90.7 kg (200 lb) 12/30/2020 10:02 PM CDT Height 170.2 cm (5' 7) 12/30/2020 10:02 PM CDT Body Mass Index 31.32 12/30/2020 10:02 PM CDT documented in this encounter Discharge Instructions AttachmentsThe following attachments cannot be sent through Care Everywhere. Cysts, Ovarian (Libyan)documented in this encounter Medications at Time of Discharge Medication Sig Dispensed Refills Start Date End Date Multiple Vitamins-Minerals Take 2 chew tab by 0 (MULTIVITAMIN GUMMIES mouth daily ADULTS PO) documented as of this encounter ED Notes Jaylyn Ferreira RN - 12/30/2020 10:15 PM CDT RLQ abdominal pain. Fiancee reports recently being dx'e with an ovarian cyst. Pain started suddenly after having intercourse at 2130. Denies vaginal bleeding. Pt not speaking, shaking, skin cold to touch. Terry Benitez MD - 12/30/2020 9:51 PM CDT History Chief Complaint: Pelvic Pain HPI Malinda Medina is a 25 year old female with history of ovarian cyst who presents with pelvic pain.Patient reports her pelvic pain began 2 days ago and she was seen in the emergency department 2 daysago for this. She was diagnosed with a right ovarian cyst and was sent home on pain medications. Tonight the patient was having intercourse and right after experienced severe pelvic pain. She has taken1 percocet approximately 3 hours ago, the maximum dose of Tylenol for the day, and Zofran before arrival to the emergency department tonight. Approximately 2 months ago the patient had a left ovarian cyst rupture and she notes her pain tonight feels similar but worse. She does feel nauseated here in the emergency department tonight. She denies any vomiting or vaginal bleeding. Review of Systems Constitutional: Negative for fever. Respiratory: Negative for cough and shortness of breath. Cardiovascular: Negative for chest pain. Gastrointestinal: Positive for nausea. Negative for vomiting. Genitourinary: Positive for pelvic pain. Negative for vaginal bleeding. All other systems reviewed and are negative. Allergies: Estrogen Hydrocodone-Acetaminophen Medications: Ativan Kyleena Zofran ODT Percocet Past Medical History: Anxiety Depression Tetralogy of Fallot Left ovarian cyst Hemoperitoneum Arcuate uterus Hemorrhagic ovarian cyst Congenital anomaly of heart Migraine syndrome Hemivertebra t12 Febrile seizure Croup Hemoglobin Jan's Past Surgical History: Tetrology of Fallot CVL septal closure PFO Bronchoscopy Peripheral nerve stimulator Family History: Diabetes Breast cancer Hypertension Heart disease Hyperlipidemia Social History: The patient presents with fiance. Physical Exam Patient Vitals for the past 24 hrs: BP Temp Temp src Pulse Resp SpO2 Height Weight 12/31/20 0300 123/76 -- -- 71 -- 100 % -- -- 12/31/20 0000 133/71 -- -- -- 16 98 % -- -- 12/30/20 2202 139/74 99 ??F (37.2 ??C) Oral 70 16 99 % 1.702 m (5' 7) 90.7 kg (200 lb) Physical Exam General: Appears well-developed and well-nourished. Head: No signs of trauma. CV: Normal rate and regular rhythm. Resp: Effort normal and breath sounds normal. No respiratory distress. GI: Soft. There is RLQ tenderness. No rebound or guarding. Normal bowel sounds. No CVA tenderness. MSK: Normal range of motion. Neuro: The patient is alert and oriented. Speech normal. Skin: Skin is warm and dry. No rash noted. Psych: normal mood and affect. behavior is normal. Emergency Department Course Imaging: US Pelvis Cmplt w Transvag & Doppler LmtPel Duplex Limited 1. ??Negative for ovarian torsion. Involuting cyst or follicle at the right ovary. Per radiology Laboratory: CMP: o/w WNL (Creatinine 0.87) CBC: WBC 12.2 (H), HGB 13.0, PLT 247 HCG qualitative blood: Negative Emergency Department Course: Reviewed: I reviewed nursing notes, vitals, past medical history and care everywhere Assessments: 2248 I obtained history and examined the patient as noted above. 0240 I rechecked the patient and explained findings. Interventions: 2317 Hydromorphone 0.5 mg IV 2317 Zofran 4 mg IV 0256 Oxycodone 5 mg PO Disposition: The patient was discharged to home. Impression & Plan Medical Decision Making: Malinda Manzo is a 25-year-old woman who presents due to right sided abdominal pain. She had pain afew days ago and had been seen at [facility] and diagnosed with an ovarian cyst. After intercourse this evening she had increased pain prompting her to come to the hospital. On my evaluation she did have some tenderness to the right lower quadrant. Blood work and ultrasound were obtained. Ultrasound showed involuting cyst but no signs of torsion and no signs of rupture. Certainly an ovarian cyst couldbe the etiology of her pain and intercourse may have exacerbated her symptoms. I did discuss the possibility of other etiologies and discussed doing a CT scan to rule out appendicitis or other causes. Patient declined to have the CT scan done. Patient is recommended supportive care and follow-up with her peoplesoft financials and she was given clear instructions to return if she had worsening pain, fevers, orany other concerns. Covid-19 Malinda Medina was evaluated during a global COVID-19 pandemic, which necessitated consideration that the patient might be at risk for infection with the SARS-CoV-2 virus that causes COVID-19. Applicable protocols for evaluation were followed during the patient's care. Diagnosis: ICD-10-CM 1. Cyst of right ovary N83.201 Discharge Medications: Discharge Medication List as of 12/31/2020 2:47 AM Scribe Disclosure: Marcio, Tamika Petersen, am serving as a scribe at 10:49 PM on 12/30/2020 to document services personally performed by Terry Benitez MD based on my observations and the provider's statements to me. Terry Benitez MD 12/31/20 0555 documented in this encounter Plan of Treatment Not on filedocumented as of this encounter Procedures Procedure Name Priority Date/Time Associated Comments Diagnosis US PELVIS COMPLETE W STAT 12/31/2020 1:05 AM R esults for this TRANSVAGINAL AND CDT procedure a re in DOPPLER LIMITED the results section. CBC WITH PLATELETS AND STAT 12/30/2020 11:19 R esults for this DIFFERENTIAL PM CDT procedure are i n the results section. CBC WITH PLATELETS & STAT 12/30/2020 11:19 Res ults for this DIFFERENTIAL PM CDT procedure are i n the results section. COMPREHENSIVE STAT 12/30/2020 11:19 Results fo r this METABOLIC PANEL PM CDT procedure ar e in the results section. HCG QUALITATIVE STAT 12/30/2020 11:18 Results for this PM CDT procedure are i n the results section. documented in this encounter Results US Pelvis Cmplt w Transvag & Doppler LmtPel Duplex Limited (12/31/2020 1:05 AM CDT) Anatomical Region Laterality Modality Abdomen/Pelvis Ultrasound Specimen (Source) Anatomical Collection Method Collection Time Re ceived Time Location / / Volume Laterality 12/31/2020 12:24 AM CDT Impressions 12/31/2020 1:33 AM CDT IMPRESSION: ?? 1. ??Negative for ovarian torsion. Invol uting cyst or follicle at the right ovary. Narrative 12/31/2020 1:33 AM CDT EXAM: US PELVIS COMPLETE W TRANSVAGINAL AND DOPPLER LIMITED LOCATION: [facility] DATE/TIME: 12/31/2020 12:24 AM INDICATION: RLQ pain, recent cyst, incre ased pain COMPARISON: None. TECHNIQUE: Transabdominal scans were per formed. Endovaginal ultrasound was performed to better visualize the adnexa. Color flow with spectral Doppler and waveform analysis performed. FINDINGS: UTERUS: 8.1 x 4.6 x 3.5 cm. Normal in si ze and position with no masses. ENDOMETRIUM: 10 mm. Normal smooth endome trium. RIGHT OVARY: 4.5 x 3.8 x 3.4 cm. Complex hypoechoic focus at the right ovary consistent with involuting cyst or dominant follicle. Normal Doppler flow. LEFT OVARY: 3.7 x 3.0 x 1.5 cm. Normal w ith arterial and venous duplex flow identified. Small amount of free fluid in the pelvis . Procedure Note Reinier Bey MD - 12/31/2020F ormatting of this note might be different from the original. EXAM: US PELVIS COMPLETE W TRANSVAGINAL AND DOPPLER LIMITED LOCATION: [facility] DATE/TIME: 12/31/2020 12:24 AM INDICATION: RLQ pain, recent cyst, incre ased pain COMPARISON: None. TECHNIQUE: Transabdominal scans were per formed. Endovaginal ultrasound was performed to better visualize the adnexa. Color flow with spectral Doppler and waveform analysis performed. FINDINGS: UTERUS: 8.1 x 4.6 x 3.5 cm. Normal in si ze and position with no masses. ENDOMETRIUM: 10 mm. Normal smooth endome trium. RIGHT OVARY: 4.5 x 3.8 x 3.4 cm. Complex hypoechoic focus at the right ovary consistent with involuting cyst or dominant follicle. Normal Doppler flow. LEFT OVARY: 3.7 x 3.0 x 1.5 cm. Normal w ith arterial and venous duplex flow identified. Small amount of free fluid in the pelvis . IMPRESSION: 1. Negative for ovarian torsion. Involut ing cyst or follicle at the right ovary. Terry Benitez MD IMG US ORDERABLES (ABNORMAL) CBC with platelets and differential (12/30/2020 11:19 PM CDT) [facility] gist Method Time Signature WBC Count 12.2 (H) 4.0 - 12/30/2020 LABORATORY 11.0 11:28 PM CDT 10e3/uL RBC Count 4.53 3.80 - 12/30/2020 LABORATORY 5.20 11:28 PM CDT 10e6/uL Hemoglobin 13.0 11.7 - 12/30/2020 LABORATORY 15.7 g/dL 11:28 PM CDT Hematocrit 40.2 35.0 - 12/30/2020 LABORATORY 47.0 % 11:28 PM CDT MCV 89 78 - 100 12/30/2020 LABORATORY fL 11:28 PM CDT MCH 28.7 26.5 - 12/30/2020 LABORATORY 33.0 pg 11:28 PM CDT MCHC 32.3 31.5 - 12/30/2020 LABORATORY 36.5 g/dL 11:28 PM CDT RDW 12.0 10.0 - 12/30/2020 LABORATORY 15.0 % 11:28 PM CDT Platelet Count 247 150 - 450 12/30/2020 LABORATORY 10e3/uL 11:28 PM CDT % Neutrophils 68 % 12/30/2020 LABORATORY 11:28 PM CDT % Lymphocytes 24 % 12/30/2020 LABORATORY 11:28 PM CDT % Monocytes 6 % 12/30/2020 LABORATORY 11:28 PM CDT % Eosinophils 1 % 12/30/2020 LABORATORY 11:28 PM CDT % Basophils 0 % 12/30/2020 LABORATORY 11:28 PM CDT % Immature 1 % 12/30/2020 LABORATORY Granulocytes 11:28 PM CDT NRBCs per 100 0 <1 /100 12/30/2020 LABORATORY WBC 11:28 PM CDT Absolute 8.4 (H) 1.6 - 8.3 12/30/2020 LABORATORY Neutrophils 10e3/uL 11:28 PM CDT Absolute 2.9 0.8 - 5.3 12/30/2020 LABORATORY Lymphocytes 10e3/uL 11:28 PM CDT Absolute 0.7 0.0 - 1.3 12/30/2020 LABORATORY Monocytes 10e3/uL 11:28 PM CDT Absolute 0.1 0.0 - 0.7 12/30/2020 LABORATORY Eosinophils 10e3/uL 11:28 PM CDT Absolute 0.0 0.0 - 0.2 12/30/2020 LABORATORY Basophils 10e3/uL 11:28 PM CDT Absolute 0.1 (H) <=0.0 12/30/2020 LABORATORY Immature 10e3/uL 11:28 PM CDT Granulocytes Absolute NRBCs 0.0 10e3/uL 12/30/2020 LABORATORY 11:28 PM CDT Specimen Anatomical Collection Method / Collection Time Recei terra Time (Source) Location / Volume Laterality Blood STRUCTURE OF RIGHT Venipuncture / 12/30/2020 11:19 UPPER LIMB / Unknown PM CDT 11:23 PM CDT Unknown Terry Benitez MD LAB - BLOOD ORDERABLES Performing Organization Address City/State/ZIP Code Phon e Number LABORATORY [place] [address] [phone] [facility] Lab [address] 1[address], [address] Comprehensive metabolic panel (12/30/2020 11:19 PM CDT) P athologist Signature Sodium 137 133 - 144 12/30/2020 LABORATORY mmol/L 11:46 PM CDT Potassium 3.8 3.4 - 5.3 12/30/2020 LABORATORY mmol/L 11:46 PM CDT Chloride 103 94 - 109 12/30/2020 LABORATORY mmol/L 11:46 PM CDT Carbon Dioxide 30 20 - 32 12/30/2020 LABORATORY (CO2) mmol/L 11:46 PM CDT Anion Gap 4 3 - 14 12/30/2020 LABORATORY mmol/L 11:46 PM CDT Urea Nitrogen 13 7 - 30 12/30/2020 LABORATORY mg/dL 11:46 PM CDT Creatinine 0.87 0.52 - 12/30/2020 LABORATORY 1.04 mg/dL 11:46 PM CDT Calcium 9.0 8.5 - 10.1 12/30/2020 LABORATORY mg/dL 11:46 PM CDT Glucose 89 70 - 99 12/30/2020 LABORATORY mg/dL 11:46 PM CDT Alkaline 61 40 - 150 12/30/2020 LABORATORY Phosphatase U/L 11:46 PM CDT AST 12 0 - 45 U/L 12/30/2020 LABORATORY 11:46 PM CDT ALT 23 0 - 50 U/L 12/30/2020 LABORATORY 11:46 PM CDT Protein Total 8.1 6.8 - 8.8 12/30/2020 LABORATORY g/dL 11:46 PM CDT Albumin 3.8 3.4 - 5.0 12/30/2020 LABORATORY g/dL 11:46 PM CDT Bilirubin Total 0.3 0.2 - 1.3 12/30/2020 LABORATORY mg/dL 11:46 PM CDT GFR Estimate >90 >60 12/30/2020 LABORATORY mL/min/1.7 11:46 PM CDT 3m2 Comment: As of October 18, 2020, eGFR is ca lculated by the CKD-EPI creatinine equation, without race adjustment. eGFR can be inf luenced by muscle mass, exercise, and diet. The reported eGFR is an estimation only and is only applicable if the renal function is stable. Specimen Anatomical Collection Method / Collection Time Recei terra Time (Source) Location / Volume Laterality Blood STRUCTURE OF RIGHT Venipuncture / 12/30/2020 11:19 UPPER LIMB / Unknown PM CDT 11:23 PM CDT Unknown Terry Benitez MD LAB - BLOOD ORDERABLES Performing Organization Address City/State/ZIP Code Phon e Number LABORATORY [place] [place] [address] Care Lab [address], [address] HCG qualitative Blood (12/30/2020 11:18 PM CDT) [facility] gist Method Time Signature hCG Serum Negative Negative STONE 12/30/2020 LABORATORY Qualitative 11:55 PM CDT Comment: This test is for screening purp oses. Results should be interpreted along with the clinical picture. Confirmation testing is available if warranted by ordering [id number], HCG Quantitative . Specimen Anatomical Collection Method / Collection Time Recei terra Time (Source) Location / Volume Laterality Blood STRUCTURE OF RIGHT Venipuncture / 12/30/2020 11:18 UPPER LIMB / Unknown PM CDT 11:23 PM CDT Unknown Terry Benitez MD LAB - BLOOD ORDERABLES Performing Organization Address City/State/ZIP Code Phon e Number LABORATORY [facility] [place] [address] Care Lab [address], [address] documented in this encounter Visit Diagnoses Diagnosis Cyst of right ovary Other and unspecified ovarian cyst documented in this encounter Administered Medications Inactive Administered Medications - up to 3 most recent administrations Medication Order MAR Action Action Date Dose Rate Site HYDROmorphone (PF) (DILAUDID) Given 12/30/2020 11:17 PM CDT 0.5 mg injection 0.5 mg 0.5 mg, Intravenous, EVERY 15 MIN PRN, moderate to severe pain, Starting on Mon12/30/20 at 2254, For 3 doses, Notify the provider to assess for uncontrolled pain or analgesic side effects. Hold while on IV WET TRIMMER or with regular IV opioid dosing. ondansetron (ZOFRAN) injection 4 mg Given 12/30/2020 11:17 PM CDT 4 mg 4 mg, Intravenous, EVERY 30 MIN PRN, nausea, vomiting, Administer over 2-5 Minutes, Starting on Mon12/30/20 at 2254, For 3 doses, May repeat in 30 minutes as needed, up to 3 doses. Irritant. oxyCODONE (ROXICODONE) tablet 5 mg Given 12/31/2020 2:56 AM CDT 5 mg 5 mg, Oral, ONCE, On Rose 12/31/20 at 0250, For 1 dose documented in this encounter Active and Recently Administered Medications Times are shown in CDT. Scheduled Medication Order 12/29/2020 12/30/2020 12/31/2020 oxyCODONE (ROXICODONE) tablet 5 mg (COMPLETED) 255 (Given - Provider: Radha Rowley, MIREILLE) 5 mg, Oral, ONCE, On Rose 12/31/20 at 0250, For 1 dose PRN Medication Order 12/29/2020 12/30/2020 12/31/2020 HYDROmorphone (PF) (DILAUDID) injection 0.5 mg 2316 (Given - Provider: Radha Rowley, MIREILLE) 0.5 mg, Intravenous, EVERY 15 MIN PRN, m oderate to severe pain, Starting on Mon12/30/20 at 2254, For 3 doses, Notify the provider to assess for uncontrolled pain or analgesic side effects. Hold while on IV WET TRIMMER or with regular IV opioid dosing. ondansetron (ZOFRAN) injection 4 mg 2316 (Given - Provider: Radha Rowley, MIREILLE) 4 mg, Intravenous, EVERY 30 MIN PRN, bert sea, vomiting, Administer over 2-5 Minutes, Starting on Mon12/30/20 at 2254, For 3 doses, May repeat in 30 minutes as needed, up to 3 doses. Irritant. documented in this encounter Care Teams Histologist Relationship Specialty Start Date End Date [facility], [facility] PCP - General 01/03/17 04/25/21 [id number] [place] [id number] Mimi Son MBBS Assigned Pediatric Specialist 03/22/20 [id number] Provider [place], [place] [id number] documented as of this encounter
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
--- OUTSIDE RECORDS SUMMARY | 2022-01-20 19:45 | XMS_ITS | Encounter Summary ---
:1995 Author Organization [place] Address [address] [facility] [place] [address] Care Team Providers Name Role Phone [facility] Primary Care Provider [phone] Mimi Son Unavailable Encounter Details Date Type Department Care Team Description 10/17/2020 Travel Social History Tobacco Use Types Packs/Day [...] been in contact with No / Unsure 10/17/2020 12:53 AM CDT someone who was confirmed or suspected to have Coronavirus / COVID-19? documented as of this encounter Plan of Treatment Not on filedocumented as of this encounter Visit Diagnoses Not on filedocumented in this encounter Care Teams Site Supervisor Relationship Specialty Start Date End Date [facility] PCP - General 01/03/17 04/25/21 [address] [place] [id number] Mimi Son MBBS Assigned Pediatric Specialist 03/22/20 [address] [facility] [place] [address] documented as of this encounter
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
--- OUTSIDE RECORDS SUMMARY | 2022-01-20 19:45 | XMS_ITS | Encounter Summary ---
:1995 Author Organization [place] Address [address] [place] [address] Care Team Providers Name Role Phone Mimi Son Unavailable [facility] Primary Care Provider [phone] System, Provider Not In Primary Care Provider Unavailable 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 documented as of this encounter Plan of Treatment Not on filedocumented as of this encounter Visit Diagnoses Not on filedocumented in this encounter Care Teams Arboriculture Teacher Relationship Specialty [facility] - [facility]21 [place] [address] [facility] [address] [place] [address] System, Provider Not In PCP - General Clinic 01/13/22 01/13/22 [facility] General 01/14/22 [place] [address] [place] [address] Mimi Son MBBS Assigned Pediatric Specialist 03/22/20 [facility] [place] [address] documented as of this encounter
--- OUTSIDE RECORDS SUMMARY | 2022-01-20 19:45 | XMS_ITS | Encounter Summary ---
:1995 Author Organization [place] Address [address] [facility] [place] [address] Care Team Providers Name Role Phone [facility] Primary Care Provider [phone] Mimi Son Unavailable Encounter Details Date Type Department Care Team Description 07/10/2020 Travel Social History Tobacco Use Types Packs/Day [...] on filedocumented in this encounter Care Teams Director Merit System Relationship Specialty Start Date End Date [facility] PCP - General 01/03/17 04/25/21 [address] [place] [phone] Mimi Son MBBS Assigned Pediatric Specialist 03/22/20 [address] [facility] [place] [address] documented as of this encounter
--- OUTSIDE RECORDS SUMMARY | 2022-01-20 19:45 | XMS_ITS | Encounter Summary ---
:1995 Author Organization [place] Address [address] [facility] [place] [address] Care Team Providers Name Role Phone [facility] Primary Care Provider [phone] Mimi Son Unavailable [facility] [place] [facility] Provider [phone] System, Provider Not In Primary Care Provider Unavailable [facility] Primary Care Provider [phone] Encounter Details Date Type Department Care Team Description 12/31/2020 Documentation Only INTERFACED REPORT Unknown, Provider Social [...] on filedocumented in this encounter Care Teams Diamond Driller Relationship Specialty Start Date End Date [facility] - [facility] 01/03/17 04/25/21 [address] [place] [phone] [facility] - [facility] 04/26/21 [place] [address] [place] [address] System, Provider Not In PCP - General Clinic 01/13/22 01/13/22 Clinic, [facility] PCP - General 01/14/22 [place] [address] [place] [address] Mimi Son MBBS Assigned Pediatric Specialist 03/22/20 [address] [facility] U[facility] Provider [place], [place] [address] documented as of this encounter
--- OUTSIDE RECORDS SUMMARY | 2022-01-20 19:45 | XMS_ITS | Encounter Summary ---
:1995 Author Organization [place] Address [address] [facility] [place] [address] Care Team Providers Name Role Phone Mimi Son Unavailable System, Provider Not In Primary Care Provider Unavailable Encounter Details Date Type Department Care Team Description 01/13/2022 Travel Social History Tobacco Use Types Packs/Day [...] have Coronavirus/COVID-19? documented as of this encounter Plan of Treatment Not on filedocumented as of this encounter Visit Diagnoses Not on filedocumented in this encounter Care Teams Shoe Repair Cobbler Relationship Specialty Start Date End Date System, Provider Not In PCP - General Clinic 01/13/22 01/13/22 Mimi Son MBBS Assigned Pediatric Specialist 03/22/20 [address] [facility] MB[address] Provider [place], [place] [address] documented as of this encounter
--- OUTSIDE RECORDS SUMMARY | 2022-01-20 19:45 | XMS_ITS | Encounter Summary ---
:1995 Author Organization [place] Address [address] [facility] [place] [address] Care Team Providers Name Role Phone Clinic, [facility] [place] Primary Care Provider [phone] Anurag Lamas Unavailable Reason for Visit (Routine) - Closed Specialty Diagnoses / Procedures Referred By Contact Refer red To Contact Diagnoses TOF (tetralogy of Fallot) Anurag Lamas MBBS Procedures Echo Pediatric (TTE) Complete ZZHC TTE W/DOPPLER, COMPLETE ZZHC ECHO COMPLETE W DOPPLER W/O CONTRAST IN TTE W/DOPPLER, COMPLETE IN TTE W/DOPPLER, COMPLETE HC ECHO COMPLETE W DOPPLER W/O CONTRAST [address] [facility] [place], [place] [address] Referral ID Status Reason Start Date Expiration Date Visits Requ ested Visits Authorized [id number] Closed 07/27/2020 07/27/2021 1 1 Encounter Details Date Type Department Care Team Description 07/27/2020 Office Visit [facility] TOF (tetra logy of Fallot) [facility]ty [facility] [place] [address] [place] [address] Social History Tobacco Use Types Packs/Day Years [...] Name Priority Date/Time Associated Diagnosis Comme nts ECHO PEDIATRIC Routine 07/27/2020 12:52 PM TOF (tetralogy of R esults for this COMPLETE CDT Fallot) procedure are i n the results section. documented in this encounter Results ECHO PEDIATRIC COMPLETE (07/27/2020 12:52 PM CDT) Anatomical Region Laterality Modality Echocardiography Specimen (Source) Anatomical Collection Method Collection Time Re ceived Time Location / / Volume Laterality 07/27/2020 12:35 PM CDT Narrative 07/27/2020 1:17 PM CDT [id number]^CYDNEY^ANURAG ? Study ID: [id number] ?[facility] ?[address] [facility], [address] [facility] ? [place] [address] ? Pediatric Echocardiogram Name: JUANA SCHNEIDER Study [...] Range LVLd apical(4ch)9.1 cm LVLs apical(4ch)7.1 cm [place] Z-Scores (Measurements & Calculat ions) Measurement NameValue [...] note might be different from the original. [id number]^CYDNEY^ANURAG Study ID: [id number] [facility] [address], [address] [place] [address] Pediatric Echocardiogram Name: WYATT JUANA L Study Date: 07/27/2020 12:35 PM Patient Location: [facility] Age: 24 yrs : 1995 BP: 105/70 mmHg Gender: Female Patient Class: Outpatient Height: 169 cm Ordering Provider: ANURAG LAMAS ight: 95 kg Referring Provider: ANURAG LAMAS SA: 2.1 m2 Performed By: Jerry Guerrero, [facility] Report approved by: Emelia Lipscomb MD Reason [...] Range LVLd apical(4ch)9.1 cm LVLs apical(4ch)7.1 cm [place] Z-Scores (Measurements & Calculat ions) Measurement NameValue [...] PM Anurag VU CV PEDS ECHO ORDERABLES documented in this encounter Visit Diagnoses Diagnosis TOF (tetralogy of Fallot) Tetralogy of Fallot documented in this encounter Care Teams Corporate Intern Relationship Specialty Start Date End Date [facility], [facility] PCP - General 01/03/17 04/25/21 [address] [place] [address] Anurag Lamas MBBS Assigned Pediatric Specialist 03/22/20 [facility] [place] [address] documented as of this encounter
--- OUTSIDE RECORDS SUMMARY | 2022-01-20 19:45 | XMS_ITS | Encounter Summary ---
:1995 Author Organization [place] Address [address] [facility] [place] [address] Care Team Providers Name Role Phone [facility] Primary Care Provider [phone] Mimi Son Unavailable Encounter Details Date Type Department Care Team Description 07/27/2020 Travel Social History Tobacco Use Types Packs/Day [...] on filedocumented in this encounter Care Teams Manager Etl Relationship Specialty Start Date End Date [facility] PCP - General 01/03/17 04/25/21 [address] [place] [phone] Mimi Son MBBS Assigned Pediatric Specialist 03/22/20 [address] [facility] [place] [address] documented as of this encounter
--- OUTSIDE RECORDS SUMMARY | 2022-01-20 19:45 | XMS_ITS | Encounter Summary ---
:1995 Author Organization [place] Address [address] [facility] [place] [address] Care Team Providers Name Role Phone Mimi Son Unavailable Clinic, Sylvia Escobar [place] Primary Care Provider [phone] Reason for Referral Care Coordination (Routine: Next available opening) - Pending Review Specialty Diagnoses / Procedures Referred By Contact Refer red To Contact Diagnoses Other specified counseling System, Provider Not In Referral ID Status Reason Start Date Expiration Date Visits V isits Requested Authorized [id number] Pending 04/28/2021 04/28/2022 1 1 Review Y LEVEL PROGRAMMER Encounter Details Date Type Department Care Team Description 04/28/2021 Orders Only [facility] System, Provider Other specified Care Coordination Not In counseling [address] [place] [phone] Social History Tobacco Use Types Packs/Day Years [...] in contact with Yes 04/26/2021 7:32 PM ENTRY LEVEL PROGRAMMER someone who was confirmed or suspected to have Coronavirus / COVID-19? documented as of this encounter Plan of Treatment Scheduled Referrals Name Type Priority Associated Diagnoses Order [facility] Referral Routine: Next Other specified Expected: Discharge - available opening counseling 04/28/2021 Referral to CC (Approximate) , Expires: 04/28/2022 documented as of this encounter Visit Diagnoses Diagnosis Other specified counseling documented in this encounter Care Teams Physicians And Surgeons Relationship Specialty Start Date End Date Gigi, Sylvia Escobar PCP - General 04/26/21 [place] [address] [facility] [address] [place], [place] [address] Mimi Son MBBS Assigned Pediatric Specialist 03/22/20 [address] Provider [place], [place] [address] documented as of this encounter
--- OUTSIDE RECORDS SUMMARY | 2022-01-20 19:45 | XMS_ITS | Encounter Summary ---
:1995 Author Organization [place] Address [address] [facility] [place] [address] Care Team Providers Name Role Phone Gigi, Bebeto [place] Primary Care Provider [phone] Reason for Visit (Routine) - Closed Specialty Diagnoses / Procedures Referred By Contact Refer red To Contact Diagnoses TOF (tetralogy of Fallot) Anurag Lamas MBBS Procedures Echo Pediatric (TTE) Complete ZZHC TTE W/DOPPLER, COMPLETE ZZHC ECHO COMPLETE W DOPPLER W/O CONTRAST [address] [facility] [place], [place] [address] Referral ID Status Reason Start Date Expiration Date Visits Requ ested Visits Authorized [id number] Closed 03/12/2020 03/12/2021 1 1 Encounter Details Date Type Department Care Team Description 03/16/2020 Ancillary Procedure [facility] TOF (tetralogy of Pediatric Specialty Fallot) Clinic [address] [place] [address] Social History Tobacco Use Types Packs/Day Years [...] been in contact with No / Unsure 03/16/2020 1:35 PM TABLE FILLER someone who was confirmed or suspected to have Coronavirus / COVID-19? documented as of this encounter Plan of Treatment Not on filedocumented as of this encounter Procedures Procedure Name Priority Date/Time Associated Diagnosis Comme nts ECHO PEDIATRIC Routine 03/16/2020 2:27 PM TOF (tetralogy of Re sults for this COMPLETE TABLE FILLER Fallot) procedure are i n the results section. documented in this encounter Results ECHO PEDIATRIC COMPLETE (03/16/2020 2:27 PM TABLE FILLER) Anatomical Region Laterality Modality Echocardiography Specimen (Source) Anatomical Collection Method Collection Time Re ceived Time Location / / Volume Laterality 03/16/2020 2:06 PM TABLE FILLER Narrative 03/16/2020 2:36 PM TABLE FILLER [id number]^CYDNEY^ANURAG ? Study ID: [id number] ?[facility] ?[address] [place] [address], [address] [facility] ? RAHAT Chan [address] ? Pediatric Echocardiogram __ Name: JUANA SCHNEIDER Study Date: 03/16/2020 02:06 PM ? Patient Location: [facility] ? Age: 24 yrs : 1995 ? BP: 123/78 mmHg Gender: Female Patient Class: Outpatient ? Height: 168 cm Ordering Provider: ANURAG LAMAS ? Weight: 92 kg Referring Provider: ANURAG LAMAS ?BSA: 2.0 m2 Performed By: Jerry Guerrero RDCS Report approved by: Emelia Lipscomb MD Reason For Study: TOF (tetralogy of Fall ot) __ ##### CONCLUSIONS ##### Patient after valve sparing repair for t etralogy of Fallot. There is no residual ventricular level shunt. Normal right and left ventricular size and systolic function. There is mild flow ac celeration across the pulmonary valve, peak gradient of 13 mm Hg. There is no s ignificant pulmonary valve insufficiency. Mild (1+) tricuspid valve insufficiency. Normal right ventricular systolic pressure. __ Technical information: A complete two dimensional, MMODE, [...] biplan e left ventricular ejection fraction is 56 %. The ventricular septal defect h as been baffled to the aorta. There is no residual ventricular level shunt. Outflow tracts: Normal great artery relationship. There is unobstructed flow through the right ventricular outflow tract. There is mild flow acceleration across the pulmonary valve. The peak gradient acros s the pulmonary valve is 13 mmHg. There is no pulmonary valve insufficienc y. There is unobstructed flow through the left ventricular outflow tract. Tric uspid aortic valve with normal appearance and motion. There is normal f low across the aortic valve. Great arteries: The [...] effusion. MMode/2D Measurements & Calculations LA dimension: 4.7 cm ? Ao root diam: 4.1 cm LA/Ao: 1.2 ? 2 Chamber EF: 63.0 % 4 Chamber EF: 55.0 % ? EF Biplane: 56.0 % LVMI(BSA): 77.8 grams/m2 ? LVMI(Height): 40.3 RWT(MM): 0.39 Time Measurements LVET: 0.29 sec Doppler Measurements & Calculations MV E max benitez: 105.6 cm/sec ?Ao V2 max: 111.3 cm/sec MV A max benitez: 65.8 cm/sec ? Ao max P.0 mmHg MV E/A: 1.6 LV V1 max: 80.9 cm/sec ?PA V2 max: 179.9 cm/sec LV V1 max P.6 mmHg ?PA max P.9 mmHg TR max benitez: 256.8 cm/sec ?LPA max benitez: 121.4 cm/sec TR max P.4 mmHg ?LPA max P.9 mmHg ?RPA max benitez: 139.2 cm/sec ?RPA max P.7 mmHg Lateral E/e': 8.5 ? LV Tei Index: 0.39 Medial E/e': 11.9 asc Ao max benitez: 81.6 cm/sec ? desc Ao max benitez: 128.9 cm/sec asc Ao max P.7 mmHg ? desc Ao max P.6 mmHg Lat Peak E' Benitez: 12.5 cm/sec ?Med Peak E' Benitez: 8.9 cm/sec MV Close to Open: 0.40 sec [place] 2D Z-SCORE VALUES Measurement NameValue Z-ScorePredictedNo rmal Range LVLd apical(4ch)8.9 cm LVLs apical(4ch)7.4 cm [place] Z-Scores (Measurements & Calculat ions) Measurement NameValue ?Z-ScorePre dictedNormal Range IVSd(MM) ?0.92 cm ?-0.83 ? ?1.1 ?0.73 - 1.37 IVSs(MM) ?1.2 cm ? -1.1 ?? 1.4 ?1.0 - 1.8 LVIDd(MM) ? 4.9 cm ? -0.96 ?? 5.3 ?4.5 - 6.1 LVIDs(MM) ? 2.7 cm ? -2.0 ?? 3.5 ?2.7 - 4.2 LVPWd(MM) ? 0.95 cm ?-0.24 ?? 0.99 ? 0.72 - 1.25 LVPWs(MM) ? 1.9 cm ? 1.7 ?1.6 ?1.2 - 2.0 LV mass(C)d(MM) 163.6 grams-1.2 ?? 209.2 ?140.9 - 310.5 FS(MM) ?45.9 % ? 2.7 ?34.8 ? 28.4 - 42.7 Report approved by: Emelia Lipscomb MD on 03/16/2020 02:36 PM Procedure Note Emelia Lipscomb MD - 03/16/2020Fo rmatting of this note might be different from the original. [id number]^CYDNEY^ANURAG Study ID: [id number] [facility]ty [facility] [address], [address] [place] [address] Pediatric Echocardiogram __ Name: JUANA SCHNEIDER Study Date: 03/16/2020 02:06 PM Patient Location: [facility] Age: 24 yrs : 1995 BP: 123/78 mmHg Gender: Female Patient Class: Outpatient Height: 168 cm Ordering Provider: ANURAG LAMAS ight: 92 kg Referring Provider: ANURAG LAMAS SA: 2.0 m2 Performed By: Jerry Guerrero RDCS Report approved by: Emelia Lipscomb MD Reason For Study: TOF (tetralogy of Fall ot) __ ##### CONCLUSIONS ##### Patient after valve sparing repair for t etralogy of Fallot. There is no residual ventricular level shunt. Normal right and left ventricular size and systolic function. There is mild flow ac celeration across the pulmonary valve, peak gradient of 13 mm Hg. There is no s ignificant pulmonary valve insufficiency. Mild (1+) tricuspid valve insufficiency. Normal right ventricular systolic pressure. __ Technical information: A complete two dimensional, MMODE, [...] biplan e left ventricular ejection fraction is 56 %. The ventricular septal defect h as been baffled to the aorta. There is no residual ventricular level shunt. Outflow tracts: Normal great artery relationship. There is unobstructed flow through the right ventricular outflow tract. There is mild flow acceleration across the pulmonary valve. The peak gradient acros s the pulmonary valve is 13 mmHg. There is no pulmonary valve insufficienc y. There is unobstructed flow through the left ventricular outflow tract. Tric uspid aortic valve with normal appearance and motion. There is normal f low across the aortic valve. Great arteries: The [...] effusion. MMode/2D Measurements & Calculations LA dimension: 4.7 cm Ao root diam: 4.1 c m LA/Ao: 1.2 2 Chamber EF: 63.0 % 4 Chamber EF: 55.0 % EF Biplane: 56.0 % LVMI(BSA): 77.8 grams/m2 LVMI(Height): 4 0.3 RWT(MM): 0.39 Time Measurements LVET: 0.29 sec Doppler Measurements & Calculations MV E max benitez: 105.6 cm/sec Ao V2 max: 11 1.3 cm/sec MV A max benitez: 65.8 cm/sec Ao max P.0 mmHg MV E/A: 1.6 LV V1 max: 80.9 cm/sec PA V2 max: 179.9 cm/sec LV V1 max P.6 mmHg PA max P.9 m mHg TR max benitez: 256.8 cm/sec LPA max benitez: 12 1.4 cm/sec TR max P.4 mmHg LPA max P.9 mmH g RPA max benitez: 139.2 cm/sec RPA max P.7 mmHg Lateral E/e': 8.5 LV Tei Index: 0.39 Medial E/e': 11.9 asc Ao max benitez: 81.6 cm/sec desc Ao max benitez: 128.9 cm/sec asc Ao max P.7 mmHg desc Ao max P.6 mmHg Lat Peak E' Benitez: 12.5 cm/sec Med Peak E' Benitez: 8.9 cm/sec MV Close to Open: 0.40 sec [place] 2D Z-SCORE VALUES Measurement NameValue Z-ScorePredictedNo rmal Range LVLd apical(4ch)8.9 cm LVLs apical(4ch)7.4 cm [place] Z-Scores (Measurements & Calculat ions) Measurement NameValue Z-ScorePredictedNo rmal Range IVSd(MM) 0.92 cm -0.83 1.1 0.73 - 1.37 IVSs(MM) 1.2 cm -1.1 1.4 1.0 - 1.8 LVIDd(MM) 4.9 cm -0.96 5.3 4.5 - 6.1 LVIDs(MM) 2.7 cm -2.0 3.5 2.7 - 4.2 LVPWd(MM) 0.95 cm -0.24 0.99 0.72 - 1.25 LVPWs(MM) 1.9 cm 1.7 1.6 1.2 - 2.0 LV mass(C)d(MM) 163.6 grams-1.2 209.2 14 0.9 - 310.5 FS(MM) 45.9 % 2.7 34.8 28.4 - 42.7 Report approved by: Emelia Lipscomb MD on 03/16/2020 02:36 PM Anurag VU CV PEDS ECHO ORDERABLES documented in this encounter Visit Diagnoses Diagnosis TOF (tetralogy of Fallot) Tetralogy of Fallot documented in this encounter Care Teams Information Technology Audit Manager Relationship Specialty Start Date End Date [facility] PCP - General 01/03/17 04/25/21 [address] [place] [address] documented as of this encounter
--- OUTSIDE RECORDS SUMMARY | 2022-01-20 19:45 | XMS_ITS | Encounter Summary ---
:1995 Author Organization [place] Address [address] [facility] [place] [address] Care Team Providers Name Role Phone Mimi Son Unavailable [facility] Primary Care Provider [phone] Encounter Details Date Type Department Care Team Description 04/26/2021 Travel Social History Tobacco Use Types Packs/Day [...] in contact with Yes 04/26/2021 7:32 PM MICROBIOLOGICAL ANALYST someone who was confirmed or suspected to have Coronavirus / COVID-19? documented as of this encounter Plan of Treatment Not on filedocumented as of this encounter Visit Diagnoses Not on filedocumented in this encounter Care Teams Lead Software Tester Relationship Specialty Start Date End [facility] - [facility] 04/26/21 [place] [address] [facility] [address] [place], [place] [address] Mimi Son MBBS Assigned Pediatric Specialist 03/22/20 [address] [facility] [address] Provider [place], [place] [address] documented as of this encounter
--- OUTSIDE RECORDS SUMMARY | 2022-01-20 19:45 | XMS_ITS | Encounter Summary ---
:1995 Author Organization [place] Address [address] [facility] [place] [address] Care Team Providers Name Role Phone [facility] [place] [facility] Care Provider [phone] Mimi Son Unavailable Reason for Visit Reason Comments Sinus Problem Entered automatically based on patient selection in [employer]. Encounter Details Date Type Department Care Team Description 10/31/2020 E-Visit [facility] Theresa Brantley Prob tremayne (Entered [facility] [place] automatically based... Kristine [address] [place] [phone] Social History Tobacco Use Types Packs/Day Years [...] / COVID-19? documented as of this encounter Patient Instructions Patient InstructionsFlSariah ayers CNP - 10/31/2020 4:40 PM CDT Malinda, This is most of viral illness. Bacterial sinus infections are typically like the cold that will not go away and symptoms last for over 10 days. Please use aulj-hha-eloalkc Mucinex, Sudafed Tylenol or ibuprofen for symptom management. Since she had Covid less than 3 months ago we will not test you again for Covid. If your symptoms are persistent for more than 10 days please contact us again for reevaluation or beseen in the clinic. The symptoms you describe suggest a viral cause, which is much more common than a bacterial cause. Antibiotics will treat bacterial infections, but have no effect on viral infections. If possible, especially if improving, start with symptom care for the first 7-10 days, then consider seeking further treatment or taking an antibiotic. Bacterial infections generally are more severe, including symptomssuch as pus, fever over 101degrees F, or rapidly worsening. documented in this encounter Miscellaneous Notes Telephone Encounter - Sariah Brantley CNP - 10/31/2020 4:42 PM CDT Provider E-Visit time total (minutes): 5 documented in this encounter Plan of Treatment Not on filedocumented as of this encounter Visit Diagnoses Diagnosis Viral URI - Primary Acute upper respiratory infections of un specified site documented in this encounter Care Teams High Speed Operator Relationship Specialty Start Date End Date [facility] PCP - General 01/03/17 04/25/21 [address] [place] [address] Mimi Son MBBS Assigned Pediatric Specialist 03/22/20 [address] [facility] [address] [place] [address] documented as of this encounter
--- OUTSIDE RECORDS SUMMARY | 2022-01-20 19:45 | XMS_ITS | Encounter Summary ---
:1995 Author Organization [place] Address [address] [facility] [place] [address] Care Team Providers Name Role Phone B[facility] [place] Primary Care Provider [phone] Reason for Visit CV Testing (Routine) - Closed Specialty Diagnoses / Procedures Referred By Contact Refer red To Contact Diagnoses TOF (tetralogy of Fallot) Mimi Son MBBS Procedures Holter Monitor 48 hour Peds ZZ[facility] AMB BP MONITORING W/SW >=24 HR, RECORD/SCAN/INTRP/RPT [facility] HOLTER RECORDING 24 HRS Z[facility] HOLTER SCAN 24 HRS [address] [facility] [place], [place] [address] Referral ID Status Reason Start Date Expiration Date Visits Requ ested Visits Authorized [id number] Closed 03/16/2020 03/16/2021 1 1 Encounter Details Date Type Department Care Team Description 03/16/2020 Ancillary Procedure [facility] TOF (tetralogy of Pediatric Specialty Fallot) Clinic [address] [place] [address] Social History Tobacco Use Types [...] with No / Unsure 03/16/2020 1:35 PM TRACK PATROL someone who was confirmed or suspected to have Coronavirus / COVID-19? documented as of this encounter Plan of Treatment Not on filedocumented as of this encounter Procedures Procedure Name Priority Date/Time Associated Diagnosis Comme nts HOLTER MONITOR 48 HOUR Routine 03/18/2020 4:19 PM TOF (tetralo gy of APPLICATION SCAN ANALYSIS TRACK PATROL Fallot) AND PROVIDER INTERPRETATION documented in this encounter Results HOLTER MONITOR 48 HOUR APPLICATION SCAN ANALYSIS AND PROVIDER INTERPRETATION (03/18/2020 4:19 PM TRACK PATROL) Anatomical Region Laterality Modality Cardiac Electrophysi ology Specimen (Source) Anatomical Collection Method Collection Time Re ceived Time Location / / Volume Laterality 03/16/2020 3:26 PM TRACK PATROL Mimi VU CV CARDIAC SERVICES ORDERABL ES documented in this encounter Visit Diagnoses Diagnosis TOF (tetralogy of Fallot) Tetralogy of Fallot documented in this encounter Care Teams Slope Hoist Operator Relationship Specialty Start Date End Date [facility] PCP - General 01/03/17 04/25/21 [address] [place] [address] documented as of this encounter
--- OUTSIDE RECORDS SUMMARY | 2022-01-20 19:45 | XMS_ITS | Encounter Summary ---
:1995 Author Organization [place] Address [address] [facility] [place] [address] Care Team Providers Name Role Phone Clinic, Bebeto Lawrence Primary Care Provider [phone] Mimi Son Unavailable Reason for Visit Reason Comments Chest Pain Encounter Details Date Type Department Care Team Description 10/17/2020 Emergency [facility] Terry Merritt S OB (shortness of breath); [facility] S/P laparoscopy Dept [facility] [address] [place] [address] [place] [address] [place] [address] [place], [place] [id number] (Wo rk) Social History Tobacco Use Types [...] Sign Reading Time Taken Comments Blood Pressure 121/73 10/17/2020 4:25 AM CDT RUE Pulse 55 10/17/2020 4:25 AM CDT Temperature 36.7 ??C (98 ??F) 10/17/2020 12:58 AM CDT Respiratory Rate 20 10/17/2020 4:47 AM CDT Oxygen Saturation 99% 10/17/2020 4:29 AM CDT Inhaled Oxygen Concentration - - Weight 92.1 kg (203 lb) 10/17/2020 12:58 AM CDT Height - - Body Mass Index 32.35 07/27/2020 12:27 PM CDT documented in this encounter Discharge Instructions Discharge InstructionsTerry Merritt MD - 10/17/2020 4:21 AM CDT You should follow up with your surgeons for ongoing abdominal pain. You should continue to take yourmedications as previously prescribed. Should you develop worsening chest pain, chest pressure passout, you should return to the emergency department. documented in this encounter Medications at Time of Discharge Medication Sig Dispensed Refills Start Date End Date Multiple Take 2 chew tab by 0 Vitamins-Minerals mouth daily (MULTIVITAMIN GUMMIES ADULTS PO) gabapentin (NEURONTIN) TAKE 1 TO 3 TABLETS 0 06/0910/31/2020 100 MG capsule BY MOUTH EVERY NIGHT AT BEDTIME documented as of this encounter ED Notes Cassandra Church RN - 10/17/2020 3:44 AM CDT Off the floor for imaging exam. Cassandra Church RN - 10/17/2020 3:39 AM CDT Call light answered. Patient requesting update and pain medications. Patient updated on continued POC and waits. MD Merritt updated regarding patient request for pain medications. Patient rating chest pain at 5/10 and abdominal pain at 6/10. VORB. Cassandra Church RN - 10/17/2020 3:00 AM CDT MD at bedside. Cassandra Church RN - 10/17/2020 2:34 AM CDT Patient call light answered by EDT. Patient reports need to urinate. Patient escorted to BR with EDT. Gait stable. Patient given supplies and instructions to collect urine sample. Patient verbalized understanding. Continue to monitor. EARL ORDOÑEZ - 10/17/2020 2:33 AM CDT Walked pt to bathroom Cassandra Church RN - 10/17/2020 1:25 AM CDT Patient placed on ECG NIBP and SaO2 monitoring. Patient reports history of Thoracic Outlet Syndrome,and because of this her NIBP readings on her left arm are significantly lower than on her right arm.BPs being done on Left arm because of placement of PIV in RAC. Kendra Sotomayor RN - 10/17/2020 12:53 AM CDT Chest pain with shortness of breath and pain, triage line said she might have a PE. She was at [facility] and they said it would be 12 hours to be seen by by an MD and she left and came here. She is three day post surgical of ovarian cyst. Terry Merritt MD - 10/17/2020 12:53 AM CDT History Chief Complaint: Chest Pain HPI Malinda Medina is a 24 year old female with history of anxiety and s/p Tetralogy of Fallot repair for a hemorrhagic ovarian cyst on 10/13/20, who presents for evaluation of chest pain. Patient statesshe ate lunch a couple of days ago and had onset gas pains which were not resolved by Tums. She wokeup crying the following night with epigastric pain and was seen at [facility] where she had a hemorrhagic cyst seen on CT and had surgery performed. She continues to have pelvic pain and has new onset chest pain with associated shortness of breath. She called the nurse line and was advised to come to the emergency department to rule out PE. Her incision site is painful here. She denies any recent leg swelling. She has been able to pass stools regularly. Review of Systems Respiratory: Positive for shortness of breath. Cardiovascular: Positive for chest pain. Negative for leg swelling. All other systems reviewed and are negative. Allergies: No Known Allergies Medications: Gabapentin Past Medical History: Anxiety Depression Tetralogy of Fallot Past Surgical History: Congenital anomaly of heart tetrology repair Family History: Maternal grandmother: diabetes Maternal grandfather: diabetes Maternal aunt: breast cancer Social History: The patient was unaccompanied to the ED. Physical Exam Patient Vitals for the past 24 hrs: BP Temp Temp src Pulse Resp SpO2 Weight 10/17/20 0447 -- -- -- -- 20 -- -- 10/17/20 0429 -- -- -- -- -- 99 % -- 10/17/20 0425 121/73 -- -- 55 16 98 % -- 10/17/20 0418 125/79 -- -- 59 16 98 % -- 10/17/20 0136 -- -- -- -- 17 -- -- 10/17/20 0125 95/56 -- -- 61 14 100 % -- 10/17/20 0058 125/63 98 ??F (36.7 ??C) Temporal 59 18 100 % 92.1 kg (203 lb) Physical Exam Constitutional: Alert, attentive, GCS 15 HENT: Nose: Nose normal. Mouth/Throat: Oropharynx is clear, mucous membranes are moist. Eyes: EOM are normal, anicteric, conjugate gaze CV: regular rate and rhythm; no murmurs Chest: Effort normal and breath sounds clear without wheezing or rales, symmetric bilaterally GI: non tender. No distension. No guarding or rebound. Surgical incision, clean dry, and intact. MSK: No LE edema, no tenderness to palpation of BLE. Neurological: Alert, attentive, moving all extremities equally. Skin: Skin is warm and dry. Emergency Department Course ECG: ECG taken at 0115, ECG read at 0119 Sinus bradycardia Nonspecific intraventricular block Abnormal ECG Rate 56 bpm. NH interval 176 ms. QRS duration 132 ms. QT/QTc 468/451 ms. P-R-T axes -5 23 23. Imaging: CT Chest Pulmonary Embolism w Contrast 1. Negative for pulmonary embolism. 2. No evidence of pneumonia. 3. Nonspecific soft tissue density noted in the region of the celiac axis in the upper abdomen. Thisis indeterminant for low density lymphadenopathy, though this can be a manifestation of third spacing of fluid. Consider short-term follow-up abdominal Reading per radiology Laboratory: CBC: WBC 8.0, HGB 11.4 (L), PLT 248 CMP: ALT 59 (H) o/w WNL (Creatinine 0.88) Troponin (Collected 0125): <0.015 ISTAT Qualitative POCT: <5.0 Emergency Department Course: Reviewed: I reviewed the patient's nursing notes, vitals, past medical records, Care Everywhere. Assessments: 0255 I performed an exam of the patient as documented above. Interventions: 0428 Tylenol 650 mg PO 0432 Toradol 15 mg IV Disposition: The patient was discharged to home. Impression & Plan Medical Decision Making: Malinda Medina is a 24 year old female with a past medical history of Tetrology of Fallot repair who also underwent laparoscopy for ruptured hemorrhagic ovarian cysts three days ago presents to the emergency department today for shortness of breath. Given her recent surgery, immobilization in bed athome due to ongoing abdominal discomfort, CT pulmonary was obtained. Fortunately this was negative for PE. Her hemoglobin was stable. She did have a single low blood pressure, however, this resolved with repositioning, do not suspect hemorrhage, or sepsis. I recommended continued conserved management g iven her EKG was also normal, troponin negative with low suspicion for ACS. Precautions were reviewed. She was discharged home. I recommended follow up with her surgery team for ongoing abdominal pain.Her abdominal exam and incisions today are all benign appearing. Diagnosis: ICD-10-CM 1. SOB (shortness of breath) R06.02 2. S/P laparoscopy Z98.890 Terry Merritt MD [employer] 7:03 AM 07/10/21 Scribe Disclosure: I, Don Rory, am serving as a scribe at 1:09 AM on 10/17/2020 to document services personally performed by Terry Merritt MD based on my observations and the provider's statements to me. [facility] EMERGENCY DEPT Terry Merritt MD 10/17/20 0703 documented in this encounter Plan of Treatment Not on filedocumented as of this encounter Procedures Procedure Name Priority Date/Time Associated Comments Diagnosis CT CHEST PULMONARY STAT 10/17/2020 4:01 AM Res ults for this EMBOLISM W CONTRAST CDT procedur e are in the results section. ISTAT HCG QUANTITATIVE Routine 10/17/2020 1:30 AM Results for this POCT CDT procedure are in the results section. CBC WITH PLATELETS & STAT 10/17/2020 1:25 AM R esults for this DIFFERENTIAL CDT procedure are i n the results section. TROPONIN I STAT 10/17/2020 1:25 AM Results f or this CDT procedure are i n the results section. COMPREHENSIVE STAT 10/17/2020 1:25 AM Results for this METABOLIC PANEL CDT procedure ar e in the results section. EKG 12-LEAD, TRACING STAT 10/17/2020 1:15 AM R esults for this ONLY CDT procedure are i n the results section. documented in this encounter Results CT Chest Pulmonary Embolism w Contrast (10/17/2020 4:01 AM CDT) Anatomical Region Laterality Modality Chest, SUBRAD CT BODY, UMP CT CHEST Comp uted Tomography Specimen (Source) Anatomical Collection Method Collection Time Re ceived Time Location / / Volume Laterality 10/17/2020 3:43 AM CDT Impressions 10/17/2020 4:12 AM CDT IMPRESSION: 1. ??Negative for pulmonary embolism. 2. ??No evidence of pneumonia. 3. ??Nonspecific soft tissue density not ed in the region of the celiac axis in the upper abdomen. This is indeterminant for low density lymphadenopathy, though this can be a manifestation of third spaci ng of fluid. Consider short-term follow- up abdominal CT for further assessment given absence of relevant comparison imaging. Narrative 10/17/2020 4:12 AM CDT EXAM: CT CHEST PULMONARY EMBOLISM W CONTRAST LOCATION: [facility] DATE/TIME: 10/17/2020 3:43 AM INDICATION: Chest pain, shortness of luis felipe ath, recent surgery. COMPARISON: Chest radiograph from 2020. TECHNIQUE: CT chest pulmonary angiogram during arterial phase injection of IV contrast. Multiplanar reformats and MIP reconstructions were performed. Dose reduction techniques were used. CONTRAST: 73mL Isovue-370 FINDINGS: ANGIOGRAM CHEST: Pulmonary arteries are normal caliber and negative for pulmonary emboli. Anatomic variant right-sided aortic arch. There is mild ectasia of the aortic root, measuring 3.6 cm diameter at the sinotubular junction. The distal th oracic aorta is not suitably opacified to exclude a dissection. No CT evidence of right heart strain. LUNGS AND PLEURA: Small amount of linear atelectasis at the left lung base. No focal airspace infiltrate. The central airways and pleural spaces are clear. MEDIASTINUM/AXILLAE: Borderline enlargem ent of the heart. No pericardial effusion. No adenopathy. CORONARY ARTERY CALCIFICATION: None. UPPER ABDOMEN: Nonspecific soft tissue d ensity adjacent to the celiac axis as seen on axial image 122. 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 Prior sternotomy. Procedure Note Reinier Bey MD - 10/17/2020F ormatting of this note might be different from the original. EXAM: CT CHEST PULMONARY EMBOLISM W CONT RAST LOCATION: [facility] DATE/TIME: 10/17/2020 3:43 AM INDICATION: Chest pain, shortness of luis felipe ath, recent surgery. COMPARISON: Chest radiograph from 2020. TECHNIQUE: CT chest pulmonary angiogram during arterial phase injection of IV contrast. Multiplanar reformats and MIP reconstructions were performed. Dose reduction techniques were used. CONTRAST: 73mL Isovue-370 FINDINGS: ANGIOGRAM CHEST: Pulmonary arteries are normal caliber and negative for pulmonary emboli. Anatomic variant right-sided aortic arch. There is mild ectasia of the aortic root, measuring 3.6 cm diameter at the sinotubular junction. The distal thoracic aorta is not suitably opacified to exclude a dissection. No CT evidence of right heart strain. LUNGS AND PLEURA: Small amount of linear atelectasis at the left lung base. No focal airspace infiltrate. The central airways and pleural spaces are clear. MEDIASTINUM/AXILLAE: Borderline enlargem ent of the heart. No pericardial effusion. No adenopathy. CORONARY ARTERY CALCIFICATION: None. UPPER ABDOMEN: Nonspecific soft tissue d ensity adjacent to the celiac axis as seen on axial image 122. 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 Prior sternotomy. IMPRESSION: 1. Negative for pulmonary embolism. 2. No evidence of pneumonia. 3. Nonspecific soft tissue density noted in the region of the celiac axis in the upper abdomen. This is indeterminant for low density lymphadenopathy, though this can be a manifestation of third spacing of fluid. Consider short-term follow-up abd ominal CT for further assessment given absence of relevant comparison imaging. Terry Merritt MD IMG CT ORDERABLES ISTAT HCG Quantitative POCT (10/17/2020 1:30 AM CDT) athologist Signature HCG Quantitative <5.0 <5.0 IU/L 10/17/2020 POINT OF CAR E Serum 1:43 AM CDT TEST, HANDHELD METER Specimen Anatomical Collection Method Collection Time Receive d Time (Source) Location / / Volume Laterality 10/17/2020 1:30 AM 1:43 CDT AM CDT Terry Merritt MD LAB - BEAKER POCT Performing Organization Address City/State/ZIP Code Phon e Number [facility] POINT OF CARE TEST, HANDHELD METER POINT OF CARE TEST, HANDHELD METER Troponin I (now) (10/17/2020 1:25 AM CDT) athologist Signature Troponin I ES <0.015 0.000 - 10/17/2020 [place] 0.045 ug/L 1:59 AM CDT [facility] Comment: The 99th percentile for upper reference range is 0.045 ug/L. ??Troponin values in the range of 0.045 - 0.120 ug/L may b e associated with risks of adverse clinical events. Specimen Anatomical Collection Method Collection Time Receive d Time (Source) Location / / Volume Laterality Blood 10/17/2020 1:25 AM 1 1:34 CDT AM CDT Terry Merritt MD LAB - BLOOD ORDERABLES Performing Organization Address City/State/ZIP Code Phon e Number [facility] [address] [address] [phone] [facility] [address] [address], [place] [phone] (ABNORMAL) Comprehensive metabolic panel (10/17/2020 1:25 AM CDT) athologist Signature Sodium 137 133 - 144 10/17/2020 [place] mmol/L 1:47 AM [facility] Potassium 3.4 3.4 - 5.3 10/17/2020 [place] mmol/L 1:47 AM [facility] Chloride 103 94 - 109 10/17/2020 [place] mmol/L 1:47 AM [facility] Carbon Dioxide 30 20 - 32 10/17/2020 [place] mmol/L 1:56 AM [facility] Anion Gap 4 3 - 14 10/17/2020 [place] mmol/L 1:56 AM [facility] Glucose 97 70 - 99 10/17/2020 [place] mg/dL 1:56 AM [facility] Urea Nitrogen 13 7 - 30 10/17/2020 [place] mg/dL 1:56 AM [facility] Creatinine 0.88 0.52 - 10/17/2020 [place] 1.04 mg/dL 1:56 AM [facility] GFR Estimate >90 >60 10/17/2020 [place] mL/min/{1. 1:56 AM [facility] 73_m2} [facility]OSP[facility] Comment: Non GFR Calc Starting 03/27/2018, serum creatinine ba sed estimated GFR (eGFR) will be calculated using the Chronic Kidney Dise [facility] Epidemiology Collaboration (CKD-EPI) equation. GFR Estimate If >90 >60 mL/min/{1.73_m2} 10/17/2020 1: [address] [facility] Comment: GFR Calc Starting 03/27/2018, serum creatinine ba sed estimated GFR (eGFR) will be calculated using the Chronic Kidney Dise [place] Epidemiology Collaboration (CKD-EPI) equation. Calcium 8.9 8.5 - 10.1 10/17/2020 1:56 AM [facility] mg/dL [facility] Bilirubin Total 0.2 0.2 - 1.3 mg/dL 10/17/2020 1:57 AM [facility] Albumin 3.6 3.4 - 5.0 g/dL 10/17/2020 1:57 AM [facility] Protein Total 7.5 6.8 - 8.8 g/dL 10/17/2020 1:57 AM [facility] Alkaline Phosphatase 57 40 - 150 U/L 10/17/2020 1:57 AM [facility] ALT 59 (H) 0 - 50 U/L 10/17/2020 1:57 AM [facility] AST 35 0 - 45 U/L 10/17/2020 1:57 AM [facility] Specimen Anatomical Collection Method Collection Time Receive d Time (Source) Location / / Volume Laterality Blood 10/17/2020 1:25 AM 1:34 CDT AM CDT Terry Merritt MD LAB - BLOOD ORDERABLES Performing Organization Address City/State/ZIP Code Phon e Number [facility] [address] [address] [phone] [facility] [address] [address], [place] [phone] (ABNORMAL) CBC with platelets differential (10/17/2020 1:25 AM CDT) [facility] Method Time Signature WBC 8.0 4.0 - 10/17/2020 [place] 11.0 1:37 AM [facility] 10e9/L [facility] RBC Count 3.88 3.8 - 5.2 10/17/2020 [place] 10e12/L 1:37 AM [facility] Hemoglobin 11.4 (L) 11.7 - 10/17/2020 [place] 15.7 g/dL 1:37 AM [facility] Hematocrit 34.4 (L) 35.0 - 10/17/2020 [facility] 47.0 % 1:37 AM [facility] MCV 89 78 - 100 10/17/2020 [facility] fl 1:37 AM [facility] MCH 29.4 26.5 - 10/17/2020 [facility] 33.0 pg 1:37 AM [facility] MCHC 33.1 31.5 - 10/17/2020 [facility] 36.5 g/dL 1:37 AM [facility] RDW 11.5 10.0 - 10/17/2020 [facility] 15.0 % 1:37 AM [facility] Platelet Count 248 150 - 450 10/17/2020 [facility] 10e9/L 1:37 AM [facility] Diff Method Automated 10/17/2020 [facility] Method 1:37 AM [facility] % Neutrophils 52.8 % 10/17/2020 [facility] 1:37 AM [facility] % Lymphocytes 39.3 % 10/17/2020 [facility] 1:37 AM [facility] % Monocytes 5.4 % 10/17/2020 [facility] 1:37 AM [facility] % Eosinophils 1.5 % 10/17/2020 [facility] 1:37 AM [facility] % Basophils 0.4 % 10/17/2020 [facility] 1:37 AM [facility] % Immature 0.6 % 10/17/2020 [facility] Granulocytes 1:37 AM [facility] Nucleated RBCs 0 0 /100 10/17/2020 [facility] 1:37 AM [facility] Absolute 4.2 1.6 - 8.3 10/17/2020 [facility] Neutrophil 10e9/L 1:37 AM [facility] Absolute 3.1 0.8 - 5.3 10/17/2020 [facility] Lymphocytes 10e9/L 1:37 AM [facility] Absolute 0.4 0.0 - 1.3 10/17/2020 [facility] Monocytes 10e9/L 1:37 AM [facility] Absolute 0.1 0.0 - 0.7 10/17/2020 [facility] Eosinophils 10e9/L 1:37 AM [facility] Absolute 0.0 0.0 - 0.2 10/17/2020 [place] Basophils 10e9/L 1:37 AM CDT [facility] Abs Immature 0.1 0 - 0.4 10/17/2020 [place] Granulocytes 10e9/L 1:37 AM CDT [facility] Absolute 0.0 10/17/2020 [place] Nucleated RBC 1:37 AM CDT [facility] Specimen Anatomical Collection Method Collection Time Receive d Time (Source) Location / / Volume Laterality Blood 10/17/2020 1:25 AM 1:34 CDT AM CDT Terry Merritt MD LAB - BLOOD ORDERABLES Performing Organization Address City/State/ZIP Code Phon e Number [facility] [address] [place] [address] [facility] [address] [place] [address], [place] [phone] EKG 12-lead, tracing only (10/17/2020 1:15 AM CDT) [facility] gist Method Time Signature Systolic Blood mmHg RADIOLOGY Pressure RESULTS Diastolic Blood mmHg RADIOLOGY Pressure RESULTS Ventricular Rate 56 BPM RADIOLOGY RESULTS Atrial Rate 56 BPM RADIOLOGY RESULTS NH Interval 176 ms RADIOLOGY RESULTS QRS Duration 132 ms RADIOLOGY RESULTS QT 468 ms RADIOLOGY RESULTS QTc 451 ms RADIOLOGY RESULTS P Reading -5 degrees RADIOLOGY RESULTS R AXIS 23 degrees RADIOLOGY RESULTS T Reading 23 degrees RADIOLOGY RESULTS Interpretation ECG Click View RADIOLOGY Image link RESULTS to view waveform and result Specimen Anatomical Collection Method Collection Time Receive d Time (Source) Location / / Volume Laterality 10/17/2020 1:15 AM 7:54 CDT AM CDT Terry Merritt MD ECG ORDERABLES Performing Organization Address City/State/ZIP Code Phon e Number RADIOLOGY RESULTS documented in this encounter Visit Diagnoses Diagnosis SOB (shortness of breath) Shortness of breath S/P laparoscopy Other postprocedural status documented in this encounter Administered Medications Inactive Administered Medications - up to 3 most recent administrations Medication Order MAR Action Action Date Dose Rate Site acetaminophen (TYLENOL) tablet 650 Given 10/17/2020 4:28 AM CDT 650 mg mg 650 mg, Oral, ONCE, On 10/17/20 at 0345, For 1 dose, Maximum acetaminophen dose from all sources = 75 mg/kg/day not to exceed 4 grams/day. iopamidol (ISOVUE-370) solution 73 mL Given 10/17/2020 3:49 AM CDT 73 mLs 73 mL, Intravenous, ONCE, On 10/17/20 at 0350, For 1 dose ketorolac (TORADOL) injection 15 mg Given 10/17/2020 4:32 AM CDT 15 mg 15 mg, Intravenous, ONCE, On 10/17/20 at 0420, For 1 dose, Can cause pain on injection. If ordered intravenously (IV) : administer through a running maintenance fluid over 1 minute followed by a flush. If patient complains of pain on injection, may dilute 15-30 mg in 5 mL and push over 1 to 2 minutes. oxyCODONE (ROXICODONE) tablet 5 mg Given 10/17/2020 4:32 AM CDT 5 mg 5 mg, Oral, ONCE, On 10/17/20 at 0345, For 1 dose Saline Flush Given 10/17/2020 3:49 AM CDT 100 mLs Intravenous, 100 mL, ONCE, On 10/17/20 at 0350, For 1 dose, This entry is for use by Radiology to intermittently used as a flush in patients receiving a CT scan. documented in this encounter Active and Recently Administered Medications Times are shown in CDT. Scheduled Medication Order 10/15/2020 10/16/2020 10/17/2020 acetaminophen (TYLENOL) tablet 650 mg (COMPLETED) 427 (Given - Provider: Cassandra Church RN) 650 mg, Oral, ONCE, 10/17/20 at 0345, For 1 dose, Maximum acetaminophen dose from all sources = 75 mg/kg/day not to exceed 4 grams/day. iopamidol (ISOVUE-370) solution 73 mL (COMPLETED) 034 (Given - Provider: Mg Spencer) 73 mL, Intravenous, ONCE, 10/17/20 at 0350, For 1 dose ketorolac (TORADOL) injection 15 mg (COMPLETED) 043 (Given - Provider: Cassandra Church RN) 15 mg, Intravenous, ONCE, 10/17/20 at 0420, For 1 dose, Can cause pain on injection. If ordered intravenously (IV) : administer through a running maintenance fluid over 1 minute followed by a flush. If patient complains of pain on injectio n, may dilute 15-30 mg in 5 mL and push over 1 to 2 minutes. oxyCODONE (ROXICODONE) tablet 5 mg (COMPLETED) 0432 (Given - Provider: Cassandra Church, RN - Comment: barcode not accepted) 5 mg, Oral, ONCE, 10/17/20 at 0345, For 1 dose Saline Flush (COMPLETED) 0349 (G iven - Provider: Mg Spencer) Intravenous, 100 mL, ONCE, 10/17/20 a t 0350, For 1 dose, This entry is for use by Radiology to intermittently used as a flush in patients receiving a CT scan. documented in this encounter Care Teams Mortgage Sales Manager Relationship Specialty Start Date End Date [facility], [facility] PCP - General 01/03/17 04/25/21 [id number] [place] [address] Mimi Son MBBS Assigned Pediatric Specialist 03/22/20 [id number] [place] [address] documented as of this encounter
--- OUTSIDE RECORDS SUMMARY | 2022-01-20 19:45 | XMS_ITS | Clinical Summary ---
:1995 Author Organization [place] Address [facility] [place] [address] Care Team Providers Name Role Phone Mimi Son Unavailable [facility] Primary Care Provider Allergies Active Allergy Reactions Severity Noted Date Comments Estrogens 04/26/2021 Hydrocodone-Acetaminophen 04/26/2021 Medications Medication Sig Dispensed Refills Start Date End Date Status Multiple Take 2 chew tab 0 Acti ve Vitamins-Minerals by mouth daily (MULTIVITAMIN GUMMIES ADULTS PO) ondansetron (ZOFRAN Take 1 tablet (4 10 tablet 0 04/27/2021 Active ODT) 4 MG ODT tab mg) by mouth every 8 hours as needed for nausea Active Problems Problem Noted Date Congenital anomaly of heart tetrology repair 4 Encounters Date Type Specialty Care Team Description 01/13/2022 Emergency EMERGENCY MEDICINE Rosalind Simmons D O Pelvic pain; Cyst of left ov delmar 01/13/2022 Travel from Last 3 Months Immunizations Name Administration Dates Next Due DTAP (<7y) 10/10/2002, 04/16/1999, 05/22/1998, 03/23/1998, 01/26/1998 HEPA 12/03/2012, 11/23/2009 HPV 02/04/2014, 04/23/2013, 12/03/2012 HepB 08/17/1998, 01/26/1998, 1997 Hib (PRP-T) 04/16/1999, 05/22/1998, 03/23/1998, 01/08 Influenza (IIV3) PF 04/23/2013, 04/30/2010 MMR 10/10/2002, 12/16/1998 Meningococcal (Menomune??) 11/23/2009 OPV, trivalent, live 12/16/1998 Pneumococcal (PCV 7) 02/27/2001, 10/31/2000, 02/29/2000 Poliovirus, inactivated (IPV) 10/10/2002, 03/23/1998, 1997 Rotavirus, pentavalent 08/17/1998, 05/22/1998, 03/23/1998 Tdap (Adacel,Boostrix) 11/23/2009 Varicella 11/05/2008, 12/16/1998 Family History Medical History Relation Comments Breast Cancer Maternal Aunt Diabetes Maternal Grandfather Diabetes Maternal Grandmother Cancer - colorectal No family hx of Relation Status Comments Father Alive Maternal Aunt Maternal Grandfather Maternal Grandmother Alive Mother Alive Paternal Grandfather Paternal Grandmother Social History Tobacco Use Types Packs/Day Years [...] was confirmed or suspected to have Coronavirus/COVID-19? 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 Plan of Treatment Health Maintenance Due Date Last Done Comments ADVANCE CARE PLANNING 1997 ANNUAL REVIEW OF HM ORDERS 1997 HIV SCREENING 2012 YEARLY PREVENTIVE VISIT 12/03/2013 12/03/2012 HEPATITIS C SCREENING 11/11/2015 PHQ-2 (once per calendar 04/10/2021 07/27/2020, 03/16/2020 year) COVID-19 Vaccine (4 - 07/22/2021 05/27/2021, 01/12/2021, Booster for Pfizer series) 12/14/2020 INFLUENZA VACCINE (#1) 2021 01/16/2021, 03/05/2019, 04/23/2013, Additional history exists CHLAMYDIA SCREENING 01/13/2023 01/13/2022 PAP 03/26/2023 03/26/2020 DTAP/TDAP/TD IMMUNIZATION 09/20/2027 09/19/2017, 11/23/2009 , (5 - Td or Tdap) 10/10/2002, Additional history exists HEPATITIS B IMMUNIZATION Completed 08/17/1998, 08/17/1998, 01/26/1998, Additional history exists Pneumococcal Vaccine: Aged Out 02/27/2001, 10/31/2000, No longer eligible Pediatrics (0 to 5 Years) 02/29/2000 based on patient's age and At-Risk Patients (6 to to co mplete this topic 64 Years) IPV IMMUNIZATION Completed 10/10/2002, 12/16/1998, 03/23/1998, Additional history exists MENINGITIS IMMUNIZATION Aged Out 11/23/2009, 11/23/2009, No longer eligible 11/23/2009 based on patient 's age to complete this topic HPV IMMUNIZATION Completed 02/04/2014, 02/04/2014, 04/23/2013, Additional history exists Procedures Procedure Name Priority Date/Time Associated Comments [...] procedure are i n the results section. URINE CULTURE STAT 01/13/2022 3:02 AM Results for this CDT procedure are i n the results section. ROUTINE UA WITH STAT 01/13/2022 3:02 AM Result s for this MICROSCOPIC REFLEX TO CDT proced ure are in CULTURE the results section. CBC WITH PLATELETS & STAT 01/13/2022 2:56 AM R esults for this DIFFERENTIAL CDT procedure are i n the results section. CBC WITH PLATELETS STAT 01/13/2022 2:56 AM Res ults for this AND DIFFERENTIAL CDT procedure a re in the results section. HCG QUALITATIVE STAT 01/13/2022 2:56 AM Result s for this CDT procedure are i n the results section. BASIC METABOLIC PANEL STAT 01/13/2022 2:56 AM Results for this CDT procedure are i n the results section. from Last 3 Months Results US Pelvis Cmplt w Transvag & [...] COMPLETE W TRANSVAGINAL AND DOPPLER LIMITED LOCATION: [facility] DATE/TIME: 01/13/2022 4:14 AM INDICATION: Pelvic pain [...] COMPLETE W TRANSVAGINAL AND DOPPLER LIMITED LOCATION: [facility] DATE/TIME: 01/13/2022 4:14 AM INDICATION: Pelvic pain [...] Radiology December 2018. [phone]:[id number]. Rosalind Simmons DO IMG US ORDERABLES Trichomonas vaginalis by PCR (01/13/2022 3:12 AM CDT) Patholo gist Method Time Signature Trichomonas Not Detected Not 01/13/2022 [facility] vaginalis by Detected 6:42 AM CDT LABORATORY PCR Specimen Anatomical Collection Method Collection Time Receive d Time (Source) Location / / Volume Laterality Swab VAGINAL STRUCTURE Non-blood 01/13/2022 3:12 AM 0 09/2021 3:20 / Unknown Collection / CDT AM CDT Unknown Narrative [facility] LABORATORY - 01/13/2022 6:42 AM C DT [facility] Xpert TV Assay, performed on the [employer], is a qualitative in vitro [...] Code Phon e Number [facility] LABORATORY [facility] [place] [address] Diag. Lab [address] [facility], [address] (ABNORMAL) Wet prep (01/13/2022 3:12 AM CDT) Analysis Performed At Patho logist Time Signature Trichomonas Absent Absent STONE 01/13/2022 [facility] LABORATORY 3:38 AM CDT Yeast Absent Absent [...] Address City/State/ZIP Code Phon [place] [phone] [facility] [address] [facility] no [facility] number[facility] Neisseria gonorrhoeae PCR (01/13/2022 3:12 AM CDT) [facility] Offerum Method Time Signature Neisseria Negative Negative 01/14/2022 [facility] gonorrhoeae 11:17 AM CDT LABORATORY Comment: Negative for N. gonorrhoeae rRN A by autotransfusionist mediated amplification. A negative result by autotransfusionist mediate d amplification does not preclude the [...] Code Phon e Number [facility] LABORATORY [facility] [place] [phone] Diag. Lab [address] [facility], [address] Chlamydia trachomatis PCR (01/13/2022 3:12 AM CDT) [facility] Offerum Method Time Signature Chlamydia Negative Negative 01/14/2022 [...] Code Phon e Number [facility] LABORATORY [facility] [place] [phone] Diag. Lab [address] [facility], Room [address] (ABNORMAL) UA with Microscopic reflex to Culture (01/13/2022 3:02 AM CDT) [facility] Method Time Signature Color Urine Light Colorless, 01/13/2022 LABORATORY Yellow Straw, 3:19 AM CDT Light Yellow, Yellow Appearance Urine Clear Clear 01/13/2022 LABORATOR Y 3:19 AM CDT Glucose Urine Negative Negative 01/13/2022 LABORATORY mg/dL 3:19 AM CDT Bilirubin Urine Negative Negative 01/13/2022 LABORATORY 3:19 AM CDT Ketones Urine Negative Negative 01/13/2022 LABORATORY mg/dL 3:19 AM CDT Specific Jackson 1.026 1.003 - 01/13/2022 LABORATOR Y Urine 1.035 3:19 AM CDT Blood Urine Negative Negative 01/13/2022 LABORATORY 3:19 AM CDT pH Urine 6.5 5.0 - 7.0 01/13/2022 LABORATORY 3:19 AM CDT Protein Albumin 20 (A) Negative 01/13/2022 LABORATORY Urine mg/dL 3:19 AM CDT Urobilinogen Normal Normal, 2.0 01/13/2022 LABORATORY Urine mg/dL 3:19 AM CDT Nitrite Urine Negative Negative 01/13/2022 LABORATORY 3:19 AM CDT Leukocyte Moderate Negative 01/13/2022 LABORATORY Esterase Urine (A) 3:19 AM CDT Bacteria Urine Few (A) None Seen 01/13/2022 LABORATORY /HPF 3:19 AM CDT Mucus Urine Present (A) None Seen 01/13/2022 [facility] LABORATORY /LPF 3:19 AM CDT RBC Urine 1 <=2 /HPF 01/13/2022 [facility] LABORATORY 3:19 AM CDT WBC Urine 3 <=5 /HPF 01/13/2022 [facility] LABORATORY 3:19 AM CDT Squamous 5 (H) <=1 /HPF 01/13/2022 [facility] LABORATORY Epithelials 3:19 AM CDT Urine Specimen Anatomical Collection Method Collection Time Receive d Time (Source) Location / / Volume Laterality Urine MID-STREAM URINE Non-blood 01/13/2022 3:02 AM 01/13 3:12 SPECIMEN / Unknown Collection / CDT AM CDT Unknown Narrative [facility] LABORATORY - 01/13/2022 3:19 AM CDT Urine Culture ordered based on laborator y criteria Rosalind Simmons DO LAB - URINE ORDERABLES Performing Organization Address City/State/ZIP Code Phon [place] [phone] Care Lab [address] [facility] Lab (1st floor, no room number) Urine [...] Code Phon e Number [facility] LABORATORY [facility] [place] [address] Diag. Lab [address] [facility], [address] CBC with platelets and differential (01/13/2022 2:56 [...] LAB - BLOOD ORDERABLES Performing Organization Address City/[facility]/ZIP Code Phon e [place] [address] Care Lab [address] Lab (1st floor, no room number) HCG QUALitative (blood) (01/13/2022 2:56 AM CDT) Patholo gist Method Time Signature hCG Serum Negative Negative STONE 01/13/2022 [facility] LABORATORY Qualitative 3:49 AM CDT Comment: This test is for screening purp oses. Results should be interpreted along with the clinical picture. Confirmation testing is available if warranted by ordering [id number], HCG Quantitative . Specimen Anatomical Collection Method / Collection Time Recei terra Time (Source) Location / Volume Laterality Blood STRUCTURE OF RIGHT Venipuncture / 01/13/2022 2:56 09/2021 3:13 UPPER LIMB / Unknown AM CDT AM CDT Unknown Rosalind Simmons DO LAB - BLOOD ORDERABLES Performing Organization Address City/[facility]/ZIP Code Phon [place] [address] Care Lab [address] Lab (1st floor, no room number) (ABNORMAL) Basic metabolic panel (01/13/2022 2:56 AM CDT) Analysis Performed At Patho logist Time Signature Sodium 138 136 - 145 01/13/2022 [facility] LABORATORY mmol/L 3:30 AM CDT Potassium 4.1 3.4 - 5.3 01/13/2022 [facility] LABORATORY mmol/L 3:30 AM CDT Chloride 102 98 - 107 01/13/2022 [facility] LABORATORY mmol/L 3:30 AM CDT Carbon Dioxide [...] and gender (Felicitas et al., NEJM, DOI: 10.1056/[id number]) Specimen Anatomical Collection Method / Collection Time Recei terra Time (Source) Location / Volume Laterality Blood STRUCTURE OF RIGHT Venipuncture / 01/13/2022 2:56 10/0 09/2021 3:12 UPPER LIMB / Unknown AM CDT AM CDT Unknown Rosalind Simmons DO LAB - BLOOD ORDERABLES Performing Organization Address City/State/ZIP Code Phon [place] [phone] Care Lab [address] Lab (1st floor, no room number) from Last 3 Months Insurance Payer Benefit Plan / Subscriber ID Effective Dates Phone Addre ss Type Group [facility] [id number] 2021-Present [phone] [address] [place] [address] 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
--- OUTSIDE RECORDS SUMMARY | 2022-01-20 19:45 | XMS_ITS | Encounter Summary ---
:1995 Author Organization [place] Address [address] [facility] [place] [address] Care Team Providers Name Role Phone 

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
--- OUTSIDE RECORDS SUMMARY | 2022-01-20 19:45 | XMS_ITS | Encounter Summary ---
:1995 Author Organization [place] Address [address] [place] [address] Care Team Providers Name Role Phone Clinic, [facility] Primary Care Provider [phone] Mimi Son Unavailable Reason for Visit Reason Comments Shortness of Breath Encounter Details Date Type Department Care Team Description 07/10/2020 Emergency [facility] Kaushal Abraham MD Shortness of breath; [facility] Emergency Dep t [facility] Chest pain, unspecified type [address] [place], [place] [address] [place] [id number] [address] [address] [place], [place] [id number] (Wo rk) Social History Tobacco Use Types [...] Sign Reading Time Taken Comments Blood Pressure 115/69 07/10/2020 10:31 AM CDT right ar m Pulse 71 07/10/2020 10:31 AM CDT Temperature 35.9 ??C (96.7 ??F) 07/10/2020 6:47 AM CDT Respiratory Rate 18 07/10/2020 6:47 AM CDT Oxygen Saturation 99% 07/10/2020 10:31 AM CDT Inhaled Oxygen Concentration - - Weight - - Height - - Body Mass Index - - documented in this encounter Discharge Instructions Discharge InstructionsYash Abraham MD - 07/10/2020 10:51 AM CDT Discharge Instructions Chest Pain You have been seen today for chest pain or discomfort. At this time, your provider has found no signs that your chest pain is due to a serious or life- threatening condition, (or you have declined more testing and/or admission to the hospital). However, sometimes there is a serious problem that does not show up right away. Your evaluation today may not be complete and you may need further testing and evaluation. Generally, every Emergency Department visit should have a follow-up clinic visit with either a primary or a specialty clinic/provider. Please follow-up as instructed by your emergency provider today. Return to the Emergency Department if: Your chest pain changes, gets worse, starts to happen more often, or comes with less activity. You are newly short of breath. You get very weak or tired. You pass out or faint. You have any new symptoms, like fever, cough, numb legs, or you cough up blood. You have anything else that worries you. Until you follow-up with your regular provider, please do the following: Take one aspirin daily unless you have an allergy or are told not to by your provider. If a stress test appointment has been made, go to the appointment. If you have questions, contact your regular provider. Follow-up with your regular provider/clinic as directed; this is very important. If you were given a prescription for medicine here today, be sure to read all of the information (including the package insert) that comes with your prescription. This will include important information about the medicine, its side effects, and any warnings that you need to know about. The pharmacist who fills the prescription can provide more information and answer questions you may have about the medicine. If you have questions or concerns that the pharmacist cannot address, please call or return to the Emergency Department. Remember that you can always come back to the Emergency Department if you are not able to see your regular provider in the amount of time listed above, if you get any new symptoms, or if there is anything that worries you. Discharge Instructions COVID-19 COVID-19 is the disease caused by a new coronavirus. The virus spreads from [id number] primarily by droplets when an infected person coughs or sneezes and the droplet either lands on another person or that other person touches a surface with the droplet on it. There are tests available to diagnose COVID-19. There is no specific treatment or medicine for the disease. You may have been diagnosed with COVID, may be being tested for COVID and have a pending test result, or may have been exposed to COVID. Symptoms of COVID-19 Many people have no symptoms or mild symptoms. Symptoms may usually appear 4 to 5 days (up to 14 days) after contact with a person with COVID-19. Some people will get severe symptoms and pneumonia. Usual symptoms are: ? Fever ? Cough ? Trouble breathing Less common symptoms are: Headache, body aches, sore throat, sneezing, diarrhea, loss of taste or smell. Isolation and Quarantine You were seen because you have symptoms, had an exposure, or had some other concern about possible COVID. The best way to stop the spread of the virus is to avoid contact with others. Isolation refers to sick people staying away from people who are not sick. A person in quarantine islimiting activity because they were exposed and are waiting to see if they might become sick. If you test positive for COVID, you should stay home (isolation) for at least 10 days after your symptoms began, and for 24 hours with no fever and improvement of symptoms--whichever is longer. (Your fever should be gone for 24 hours without using fever-reducing medicine). If you have no symptoms, youshould stay home (isolation) for 10 days from the day of the test. For example, if you have a fever and cough for 6 days, you need to stay home 4 more days with no fever for a total of 10 days. Or, if you have a fever and cough for 10 days, you need to stay home one more day with no fever for a total of 11 days. If you have a high-risk exposure to COVID (you spent 15 minutes or more within six feet of somebody who has COVID), you should stay home (quarantine) for 14 days. Even if you test negative for COVID, the CDC recommends a 14-day quarantine from the time of your last exposure to that individual. There are options for a shortened (<14 day quarantine) you can review at: https://www.health.[facility].[place]/diseases/coronavirus/close.html#long If you have symptoms but a negative test, you should stay at home until you are symptom-free and without fever for 24 hours, using the same judgment you would for when it is safe to return to work/school from strep throat, influenza, or the common cold. If you worsen, you should consider being re-evaluated. If you are being tested for COVID and your test is pending, you should stay home until you know yourtest result. How should I protect myself and others? Do not go to work or school. Have a friend or relative do your shopping. Do not use public transportation (bus, train) or ridesharing (Lyft, Uber). Separate yourself from other people in your home. As much as possible, you should stay in one room and away from other people in your home. Also, use a separate bathroom, if possible. Avoid handling pets or other animals while sick. Wear a facemask if you need to be around other people and cover your mouth and nose with a tissue when you cough or sneeze. Avoid sharing personal household items. You should not share dishes, drinking glasses, forks/knives/spoons, towels, or bedding with other people in your home. After using these items, they should be washed with soap and water. Clean parts of your home that are touched often (doorknobs, faucets, countertops, etc.) daily. Wash your hands often with soap and water for at least 20 seconds or use an alcohol-based hand nuisance wildlife specialist containing at least 60% alcohol. Avoid touching your face. Treat your symptoms. You can take Acetaminophen (Tylenol) to treat body aches and fever as needed for comfort. Ibuprofen (Advil or Motrin) can be used as well if you still have symptoms after taking Tylenol. Drink fluids. Rest. Watch for worsening symptoms such as shortness of breath/difficulty breathing or very severe weakness. Employers/workplaces are being asked by the Centers for Disease Control (CDC) to not request notes/documentation for you to return to work or prove that you were ill. You may choose to show your employer this paperwork. Also, repeat testing should not be required to return to work. Exercise/Sports in rare cases, COVID could affect your heart in a way that makes exercise or participation in sports dangerous. If you have a mild COVID illness (fever, cough, sore throat, and similar symptoms but no difficulty breathing or abnormalities of the lung): After your COVID symptoms have resolved, wait 14-days beforereturning to activity. If you have more than a mild illness (meaning that you have problems with your breathing or lungs) or if you participate in competitive or strenuous activity or have a history of heart disease: Please see your primary doctor/provider prior to return to activity/competition. Return to the Emergency Department if: If you are developing worsening breathing, shortness of breath, or feel worse you should seek medical attention. If you are uncertain, contact your health care provider/clinic. If you need emergency medical attention, call 911 and tell them you have been ill. AttachmentsThe following attachments cannot be sent through Care Everywhere. Shortness of Breath (Dyspnea) (Citizen Of [place])documented in this encounter Medications at Time of Discharge Medication Sig Dispensed Refills Start Date End Date Multiple Take 2 chew tab by 0 Vitamins-Minerals mouth daily (MULTIVITAMIN GUMMIES ADULTS PO) gabapentin (NEURONTIN) TAKE 1 TO 3 TABLETS 0 06/0910/31/2020 100 MG capsule BY MOUTH EVERY NIGHT AT BEDTIME documented as of this encounter Progress Notes Mark Sánchez - 07/10/2020 11:50 AM CDT Placed a 3 day Zio patch engine monitor. documented in this encounter ED Notes Kayla Joseph - 07/10/2020 10:10 AM CDT Ambulated Pt. With pulse ox in room. Pt. O2 sats at rest were 100%. With ambulation Pt. O2 sats at 100%. notified Kayla Joseph - 07/10/2020 7:52 AM CDT Ambulated Pt. In room with pulse ox. At rest Pt. O2 sats at 100% with ambulation Pt. O2 sats at 86% on room air. Pt. Feels slightly short of breath. With rest Pt. O2 sats returned to 100%. 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 The patient reports that she was shocked by her cell phone and subsequently presented for chest pain in the ED on 07/08 for chest pain and shortness of breath, with imaging obtained as seen below. After leaving the hospital, she woke up from a nap feeling chills and feverish, with T-max 103 F. She began to feel nauseated, sore throat, chest discomfort, and shortness of breath, prompting her to get tested for COVID yesterday, which returned positive. She now presents with ongoing shortness of breath and chest discomfort as her main concern. A pulse oximeter at home measured her oxygen saturations in the low 90sor high 80s but she does not know if the device is accurate. XR Chest 2 Views 07/08/2020 The heart and pulmonary vasculature are normal. There is a right-sided aortic arch. The lungs are clear. No pleural effusion or pneumothorax. There are postoperative changes of prior sternotomy. CBC: WBC 12.4 (H), HGB 14.9, PLT 268 BMP: WNL Troponin: <0.01 D Dimer: <0.27 Review of Systems Respiratory: Positive for shortness of breath. Cardiovascular: Positive for chest pain (chest discomfort). All other systems reviewed and are negative. Allergies: No Known Allergies Medications: Mirena IUD Past Medical History: Anxiety Depression Tetralogy of Fallot Migraine syndrome Croup Hemivertebra T12 Past Surgical History: Congenital anomaly of heart tetrology repair peripheral nerve stimulator Bronchoscopy Family History: Maternal grandmother: diabetes Maternal grandfather: diabetes Maternal aunt: breast cancer Social History: Patient presents unattended. Physical Exam Patient Vitals for the past 24 hrs: BP Temp Temp src Pulse Resp SpO2 07/10/20 1031 115/69 -- -- 71 -- 99 % 07/10/20 1030 (!) 89/67 -- -- 67 -- 98 % 07/10/20 1015 113/69 -- -- 69 -- 98 % 07/10/20 1000 122/74 -- -- 74 -- 98 % 07/10/20 0945 121/76 -- -- 71 -- 99 % 07/10/20 0845 93/72 -- -- 76 -- 99 % 07/10/20 0830 -- -- -- -- -- (!) 89 % 07/10/20 0815 95/67 -- -- -- -- -- 07/10/20 0751 101/72 -- -- -- -- -- 07/10/20 0647 124/77 96.7 ??F (35.9 ??C) Temporal 78 18 97 % Physical Exam VS: Reviewed per above HENT: normal speech EYES: sclera anicteric CV: Rate as noted, regular rhythm. RESP: Effort normal. Breath sounds are normal bilaterally. GI: no tenderness/rebound/guarding, not distended. NEURO: Alert, moving all extremities MSK: No deformity of the extremities SKIN: Warm and dry Emergency Department Course ECG ECG taken at 0741, ECG read at 0741 Normal sinus rhythm Right bundle branch block Abnormal ECG No significant change as compared to prior, dated 05/17/2020. Rate 71 bpm. WV interval 152 ms. QRS duration 130 ms. QT/QTc 422/458 ms. P-R-T axes 02 27 15. Imaging: XR Chest Port 1 View No evidence of acute cardiopulmonary disease is seen. Postoperative findings of the chest as described. Laboratory: Symptomatic Influenza A/B & SARS-CoV2 (COVID19) Virus PCR Multiplex: Negative CBC: WBC 9.0, HGB 13.6, PLT 221 BMP: WNL (Creatinine 0.79) Troponin (Collected 742): <0.015 ISTAT HCG Quantitative: <5.0 Ddimer: 0.3 Emergency Department Course: Reviewed: I reviewed nursing notes, vitals, past medical history and care everywhere Assessments: 07 I obtained history and examined the patient as noted above. 0755 I rechecked the patient and explained findings. 0959 Patient rechecked and updated. Consults: [address] Vamshi Oconnor of the pediatric cardiology service from [facility] regarding patient's presentation, findings, and plan of care. Interventions: 0858 Normal Saline 1000 mL IV 0859 Dexamethasone 6 mg IV 0947 Tylenol 650 mg PO Disposition: The patient was discharged to home. Impression & Plan Medical Decision Making: Patient presents to the ER for evaluation of intermittent chest discomfort and shortness of breath as well as collection of flulike symptoms. On arrival, vital signs are reassuring. Patient apparently had Covid positive test at outside testing facility. Today her Covid testing is actually negative. Nevertheless initially did plan to admit the patient due to possible desaturation with ambulation. And she was thus subsequently given IV Decadron. However on recheck in the ER, this was not the case. Patient did have some asymmetric blood pressures in the 80s to 90 systolic range left upper extremity versus low 100 in the right upper extremity. D-dimer is within normal range speaks against underlying aortic dissection or PE. Chest x-ray is clear and history do not support underlying aortic dissection.While in the ER, her symptoms were intermittent in nature. I spoke with her pediatric cardiology team and they agreed with the evaluation I performed in the ER and recommended close outpatient follow-up next week. They did also recommend Zio patch to look for underlying occult dysrhythmia. I discussedpatient to continue monitoring SPO2 at home and return for worsening shortness of breath as this maybe a reason for hospital admission in the setting of possible COVID-19 infection. Covid-19 Malinda Medina was evaluated during a global COVID-19 pandemic, which necessitated consideration that the patient might be at risk for infection with the SARS-CoV-2 virus that causes COVID-19. Applicable protocols for evaluation were followed during the patient's care. COVID-19 was considered as part of the patient's evaluation. The plan for testing is: a test was obtained during this visit. Diagnosis: ICD-10-CM 1. Shortness of breath R06.02 2. Chest pain, unspecified type R07.9 Discharge Medications: New Prescriptions No medications on file Scribe Disclosure: IAd am serving as a scribe at 7:33 AM on 07/10/2020 to document services personally performed by Yash Abraham MD based on my observations and the provider's statements to me. Scribe Disclosure: Johana Buckley am serving as a scribe at 7:55 AM on 07/10/2020 to document services personally performed by Yash Abraham MD based on my observations and the provider's statements to me. Yash Abraham MD 07/10/20 1340 documented in this encounter Plan of Treatment Not on filedocumented as of this encounter Procedures Procedure Name Priority Date/Time Associated Comments Diagnosis LEADLESS TUBE BLOWER STAT 07/10/2020 11:50 APPLICATION AND AM CDT INTERPRETATION 3 TO 7 DAY SARS-COV-2 (COVID-19) STAT 07/10/2020 9:04 AM Results for this VIRUS RT-PCR CDT procedure are i n the results section. XR CHEST PORT 1 VIEW STAT 07/10/2020 8:02 AM R esults for this CDT procedure are i n the results section. ISTAT HCG QUANTITATIVE Routine 07/10/2020 7:47 AM Results for this POCT CDT procedure are in the results section. CBC WITH PLATELETS & STAT 07/10/2020 7:43 AM R esults for this DIFFERENTIAL CDT procedure are i n the results section. TROPONIN I STAT 07/10/2020 7:43 AM Results f or this CDT procedure are i n the results section. D DIMER QUANTITATIVE Routine 07/10/2020 7:43 AM R esults for this CDT procedure are i n the results section. BASIC METABOLIC PANEL STAT 07/10/2020 7:43 AM Results for this CDT procedure are i n the results section. EKG 12-LEAD, TRACING STAT 07/10/2020 7:41 AM R esults for this ONLY CDT procedure are i n the results section. documented in this encounter Results LEADLESS TUBE BLOWER APPLICATION AND INTERPRETATION 3 TO 7 DAY (07/10/2020 11:50 AM CDT) Anatomical Region Laterality Modality Other Specimen (Source) Anatomical Location Collection Method / Collectio n Time Received Time / Laterality Volume Narrative This result has an attachment that is no t available. Yash Abraham MD CV CARDIAC SERVICES ORDERABL ES Symptomatic SARS-CoV-2 COVID-19 Virus (Coronavirus) by PCR (07/10/2020 9:04 AM CDT) [facility] Method Time Signature SARS-CoV-2 Nasopharyngeal 07/10/2020 [place] Virus 9:07 AM [facility] Source SARS-CoV-2 NEGATIVE 07/10/2020 [place] PCR Result 9:50 AM [facility] Comment: SARS-CoV2 (COVID-19) RNA not de tected, presumed negative. SARS-CoV-2 PCR Comment (Note) 07/10/2020 9:50 A [facility] Comment: Testing was performed using the kiersten SA RS-CoV-2 & Influenza A/B Assay on the kiersten Pham System. This test should be ordered for the dete ction of SARS-COV-2 in individuals who meet SARS-CoV-2 clinical and/or epidemi ological criteria. Test performance is unknown in asymptomatic patients. This test is for in vitro diagnostic use under the FDA EUA for laboratories certified under CLIA to perform moderate and/or high complexity testing. This test has not been FDA cleared or approve d. A negative test does not rule out the pr esence of PCR inhibitors in the specimen or target RNA in concentration below the limit of detection for the assay. The possibility of a false negati ve should be considered if the patient's recent exposure or clinical pr esentation suggests COVID-19. [facility] are certi fied under the Clinical Laboratory Improvement Amendments of 1988 (CLIA-88) as qualified to perform moderate and/or high complexity laboratory testin g. Specimen (Source) Anatomical Collection Method Collection Time Re ceived Time Location / / Volume Laterality Specimen from 07/10/2020 9:04 07/10/2020 nasopharyngeal AM CDT 9:25 AM CDT structure (specimen) Yash Abraham MD LAB - MICRO GENERAL ORDERABL ES Performing Organization Address City/State/ZIP Code Phon e Number M [facility] [address], [place] [address] [facility] [address], [place] [address] [facility] [phone] XR Chest Port 1 View (07/10/2020 8:02 AM CDT) Anatomical Region Laterality Modality Chest Digital Radiography Specimen (Source) Anatomical Location Collection Method / Collectio n Time Received Time / Laterality Volume Impressions 07/10/2020 6:53 PM CDT IMPRESSION: No evidence of acute cardiopulmonary disease is seen. Postoperative findings of the chest as d escribed. WING AIKEN MD Narrative 07/10/2020 6:53 PM CDT CHEST PORTABLE ONE VIEW ?? 07/10/2020 8:02 AM HISTORY: COVID, shortness of breath. COMPARISON: Chest x-rays dated 01/03/2017 . FINDINGS: ??The lungs are clear. No pleu ral effusions or pneumothorax. Pulmonary vascularity is within normal l imits. No acute fracture. Cardiac silhouette is top-normal size wh ich is likely at least partially due to the AP portable techniq ue. Sternal cerclage wires are again noted. Procedure Note Wing Aiken MD - 07/10/2020Form atting of this note might be different from the original. CHEST PORTABLE ONE VIEW 07/10/2020 8:02 AM HISTORY: COVID, shortness of breath. COMPARISON: Chest x-rays dated 01/03/2017 . FINDINGS: The lungs are clear. No pleura l effusions or pneumothorax. Pulmonary vascularity is within normal l imits. No acute fracture. Cardiac silhouette is top-normal size wh ich is likely at least partially due to the AP portable techniq ue. Sternal cerclage wires are again noted. IMPRESSION: No evidence of acute cardiop ulmonary disease is seen. Postoperative findings of the chest as d escribed. WING AIKEN MD Yash Abraham MD IMG DIAGNOSTIC IMAGING ORDER NIRU ISTAT HCG Quantitative POCT (07/10/2020 7:47 AM CDT) athologist Signature HCG Quantitative <5.0 <5.0 IU/L 07/10/2020 POINT OF CAR E Serum 8:00 AM CDT TEST, HANDHELD METER Specimen Anatomical Collection Method Collection Time Receive d Time (Source) Location / / Volume Laterality 07/10/2020 7:47 AM 8:00 CDT AM CDT Yash Abraham MD LAB - BEAKER POCT Performing Organization Address City/[facility] [address]/ZIP [facility] Phon [place] Number [facility] POINT OF CARE TEST, HANDHELD METER POINT OF CARE TEST, HANDHELD METER D dimer quantitative (07/10/2020 7:43 AM CDT) athologist [facility] D Dimer 0.3 0.0 - 0.50 07/10/2020 [facility] ug/ml FEU 10:21 AM CDT HOSPITAL Comment: This D-dimer assay is intended for use i n conjunction with a clinical pretest probability assessment model to exclude pulmonary embolism (PE) and deep venous thrombosis (DVT) in outpatients s uspected of PE or DVT. The cut-off value is 0.5 ug/mL FEU. Specimen Anatomical Collection Method Collection Time Receive d Time (Source) Location / / Volume Laterality 07/10/2020 7:43 AM 7:47 CDT AM CDT Yash Abraham MD LAB - BLOOD ORDERABLES Performing Organization Address City/State/[place]IP [facility] Phon [place] Number [facility] [address] [address] [facility] [address] [phone] Troponin I (07/10/2020 7:43 AM CDT) athologist Signature Troponin I ES <0.015 0.000 - 07/10/2020 [place] 0.045 ug/L 8:10 AM [facility] Comment: The 99th percentile for upper reference range is 0.045 ug/L. ??Troponin values in the range of 0.045 - 0.120 ug/L may b e associated with risks of adverse clinical events. Specimen Anatomical Collection Method Collection Time Receive d Time (Source) Location / / Volume Laterality Blood 07/10/2020 7:43 AM 7:47 CDT AM CDT Yash Abraham MD LAB - BLOOD ORDERABLES Performing Organization Address City/State/ZIP Code Phon e Number [place] [address], [place] [address] [phone] [facility] [address] [phone] Basic metabolic panel (07/10/2020 7:43 AM CDT) athologist Signature Sodium 137 133 - 144 07/10/2020 [place] mmol/L 8:00 AM [facility] Potassium 3.8 3.4 - 5.3 07/10/2020 [place] mmol/L 8:00 AM [facility] Chloride 105 94 - 109 07/10/2020 [place] mmol/L 8:00 AM [facility] Carbon Dioxide 27 20 - 32 07/10/2020 [place] mmol/L 8:06 AM [facility] Anion Gap 5 3 - 14 07/10/2020 [place] mmol/L 8:06 AM [facility] Glucose 92 70 - 99 07/10/2020 [place] mg/dL 8:06 AM [facility] Urea Nitrogen 12 7 - 30 07/10/2020 [place] mg/dL 8:06 AM [facility] Creatinine 0.79 0.52 - 07/10/2020 [facility] 1.04 mg/dL 8:06 AM [facility] GFR Estimate >90 >60 07/10/2020 [facility] mL/min/{1. 8:06 AM [facility] 73_[id number]} HOSPITAL Comment: Non GFR Calc Starting 03/27/2018, serum creatinine ba sed estimated GFR (eGFR) will be calculated using the Chronic Kidney Dise [facility] Epidemiology Collaboration (CKD-EPI) equation. GFR Estimate If >90 >60 mL/min/{1.73_m2} 07/10/2020 8: 06 AM [facility] Comment: GFR Calc Starting 03/27/2018, serum creatinine ba sed estimated GFR (eGFR) will be calculated using the Chronic Kidney Dise [facility] Epidemiology Collaboration (CKD-EPI) equation. Calcium 8.6 8.5 - 10.1 mg/dL 07/10/2020 8:[address] [facility] Specimen Anatomical Collection Method Collection Time Receive d Time (Source) Location / / Volume Laterality Blood 07/10/2020 7:43 AM 7:47 CDT AM CDT Yash Abraham MD LAB - BLOOD ORDERABLES Performing Organization Address City/State/ZIP Code Phon e Number M [address] [address] [facility] [address] [place], [place] [address] [facility] [phone] [address] [phone] [facility] CBC with platelets differential (07/10/2020 7:43 AM CDT) [facility] Method Time Signature WBC 9.0 4.0 - 07/10/2020 [place] 11.0 7:52 AM [facility] 10e9/L [facility] RBC Count 4.51 3.8 - 5.2 07/10/2020 [place] 10e12/L 7:52 AM [facility] Hemoglobin 13.6 11.7 - 07/10/2020 [facility] 15.7 g/dL 7:52 AM [facility] Hematocrit 39.8 35.0 - 07/10/2020 [facility] 47.0 % 7:52 AM [facility] MCV 88 78 - 100 07/10/2020 [facility] fl 7:52 AM [facility] MCH 30.2 26.5 - 07/10/2020 [facility] 33.0 pg 7:52 AM [facility] MCHC 34.2 31.5 - 07/10/2020 [facility] 36.5 g/dL 7:52 AM [facility] RDW 11.7 10.0 - 07/10/2020 [facility] 15.0 % 7:52 AM [facility] Platelet Count 221 150 - 450 07/10/2020 [facility] 10e9/L 7:52 AM [facility] Diff Method Automated 07/10/2020 [facility] Method 7:52 AM [facility] % Neutrophils 65.2 % 07/10/2020 [facility] 7:52 AM [facility] % Lymphocytes 23.5 % 07/10/2020 [facility] 7:52 AM [facility] % Monocytes 9.7 % 07/10/2020 [facility] 7:52 AM [facility] % Eosinophils 1.1 % 07/10/2020 [facility] 7:52 AM [facility] % Basophils 0.3 % 07/10/2020 [facility] 7:52 AM [facility] % Immature 0.2 % 07/10/2020 [facility] Granulocytes 7:52 AM [facility] Nucleated RBCs 0 0 /100 07/10/2020 [facility] 7:52 AM [facility] Absolute 5.8 1.6 - 8.3 07/10/2020 [facility] Neutrophil 10e9/L 7:52 AM [facility] Absolute 2.1 0.8 - 5.3 07/10/2020 [facility] Lymphocytes 10e9/L 7:52 AM [facility] Absolute 0.9 0.0 - 1.3 07/10/2020 [facility] Monocytes 10e9/L 7:52 AM [facility] Absolute 0.1 0.0 - 0.7 07/10/2020 [facility] Eosinophils 10e9/L 7:52 AM [facility] Absolute 0.0 0.0 - 0.2 07/10/2020 [facility] Basophils 10e9/L 7:52 AM [facility] Abs Immature 0.0 0 - 0.4 07/10/2020 [facility] Granulocytes 10e9/L 7:52 AM [facility] Absolute 0.0 07/10/2020 [facility] Nucleated RBC 7:52 AM [facility] Specimen Anatomical Collection Method Collection Time Receive d Time (Source) Location / / Volume Laterality Blood 07/10/2020 7:43 AM 7:47 CDT AM CDT Yash Abraham MD LAB - BLOOD ORDERABLES Performing Organization Address City/State/ZIP Code Phon e Number [facility] [address] [place], [place] [address] [facility] [address] [phone] EKG 12-lead, tracing only (07/10/2020 7:41 AM CDT) [facility] gist Method Time Signature Interpretation ECG Click View RADIOLOGY Image link RESULTS to view waveform and result Specimen (Source) Anatomical Collection Method Collection Time Re ceived Time Location / / Volume Laterality 07/10/2020 7:41 AM CDT Yash Abraham MD ECG ORDERABLES Performing Organization Address City/State/ZIP [facility] Phon e Number RADIOLOGY RESULTS documented in this encounter Visit Diagnoses Diagnosis Shortness of breath Chest pain, unspecified type documented in this encounter Administered Medications Inactive Administered Medications - up to 3 most recent administrations Medication Order MAR Action Action Date Dose Rate Site 0.9% sodium chloride BOLUS New Bag 07/10/2020 8:58 AM CDT 1,000 mLs 1000 mL/hr Intravenous, 1,000 mL, ONCE, at 1,000 mL/hr, Administer over 1 Hours, On Mon07/10/20 at 0820, For 1 dose acetaminophen (TYLENOL) solution 650 mg Given 07/10/2020 9:47 AM CDT 650 mg 650 mg, Oral, ONCE, On Mon07/10/20 at 0935, For 1 dose, Maximum acetaminophen dose from all sources= 75 mg/kg/day not to exceed 4 grams/day. dexamethasone PF (DECADRON) injection 6 mg Given 07/10/2020 8:59 AM CDT 6 mg 6 mg, Intravenous, ONCE, Administer over 1 Minutes, On Mon07/10/20 at 0805, For 1 dose, For IV doses 1-20 mg, give IV Push undiluted over 1 minute. sodium chloride 0.9% infusion at 125 mL/hr, Intravenous, CONTINUOUS, A dminister after the bolus., Starting on Mon07/10/20 at 0920, Until Mon07/10/20 at 1406 documented in this encounter Active and Recently Administered Medications Times are shown in CDT. Scheduled Medication Order 07/08/2020 07/09/2020 07/10/2020 0.9% sodium chloride BOLUS (COMPLETED) 0858 (New Bag - Provider: Deanna Beltran, MIREILLE)1033 (Stopped - Provider: Deanna Beltran RN) Intravenous, 1,000 mL, ONCE, at 1,000 mL /hr, Administer over 1 Hours, Mon07/10/20 at 0820, For 1 dose acetaminophen (TYLENOL) solution 650 mg (COMPLETED) 0947 (Given - Provider: Deanna Beltran RN) 650 mg, Oral, ONCE, Mon07/10/20 at 0935, For 1 dose, Maximum acetaminophen dose from all sources= 75 mg/kg/day not to exceed 4 grams/day. dexamethasone PF (DECADRON) injection 6 mg (COMPLETED) 0859 (Given - Provider: Deanna Beltran RN) 6 mg, Intravenous, ONCE, Administer over 1 Minutes, Mon07/10/20 at 0805, For 1 dose, For IV doses 1-20 mg, give IV Push undiluted over 1 minute. Continuous Medication Order 07/08/2020 07/09/2020 07/10/2020 sodium chloride 0.9% infusion 09 20 (Canceled Entry - Provider: Orders Generic Provider - Comment: Automatically canceled at discontinue of medication order) at 125 mL/hr, Intravenous, CONTINUOUS, A dminister after the bolus., Starting Mon07/10/20 at 0920, Until Mon07/10/20 at 1406 documented in this encounter Care Teams Clinical Services Professional Relationship Specialty Start Date End Date [facility] PCP - General 01/03/17 04/25/21 [id number] [place] [address] Mimi Son MBBS Assigned Pediatric Specialist 03/22/20 [address] [facility] [id number] [place] [address] documented as of this encounter
--- OUTSIDE RECORDS SUMMARY | 2022-01-20 19:46 | XMS_ITS | Encounter Summary ---
:1995 Author Organization [place] Address [facility] [place] [address] Care Team Providers Name Role Phone Unavailable Primary Care Provider Unavailable Encounter Details Date Type Department Care Team Description 07/30/2008 Office Visit-[facility] INTERFACE P DEPT Jovan Deng MD XXX RESIGNED XXX [address] [facility] EMERGENCY [facility]PARTMENT [address] [place], [place] [id number] (Wo rk) Social History Tobacco Use Types Packs/Day Years Used Date Smoking Tobacco: Never Assessed Sex Assigned at Date Recorded Female 10/31/2020 4:31 PM CDT documented as of this encounter Progress Notes Jovan Deng - 07/30/2008 3:30 PM CDT Electrical Assistant: Jovan Deng Status: Final - Signature Encounter: 30 Jul 2008 Type: Fareeds [facility] [address] [facility] [address] [place] [address] Office: [phone] August 04, 2008 Rosa Neal MD [facility] [address] [facility] [address] [facility] [address] RE: Malinda Medina : 1995 TK: 07/30/[address] Neal: I had the pleasure of seeing your patient, Malinda Medina, in Peds Card Clinic in [facility] on 07/30/08. Malinda is now 10 8/12 years old. 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 Malinda has done very well before and after that surgery.She had some esotropia that has been repaired. She has had no significant health issue in quite a while according to Mother. Malinda used to have upper airway issues and these have gone by the alpine. Malinda reports that she walks every day because she walks with her grandmother and she has a dog who requires walking. Mother feels that Malinda does have less stamina than others her age. Malinda reports that she had to run the mile and walked a good bit of this. She came in next to last by her report. Malinda denies any shortness of breath, syncope, palpitations, cyanosis or edema. There is no cough or wheeze and other cardiovascular and respiratory systems reviews are all negative. There are no new developments in the past medical, family or social history. Malinda is in 5th grade. Exam shows an awake, alert young lady who is in no acute distress. Vital signs include heart rate 93bpm, respiratory rate 14 breaths, blood pressure 116/73 from the right arm, height is 152 cm which is 95th percentile, weight is 128 lb or 58 kg which is greater than 97th percentile and a BMT of 25 isgreater than the 95th percentile. Oxygen saturation is 99%. Cardiovascular exam is notable for regular rate and rhythm with a normal first heart sound and a single second sound. There is a grade 2 systolic ejection murmur at the upper left sternal border. There is no diastolic murmur and no click, thrill or heave. The lungs are clear without any rales or rhonchi. The abdomen is soft and non-tender wit hout any hepatosplenomegaly. Peripheral pulses are normal from the upper and lower extremities. There is no peripheral clubbing, edema or cyanosis. The exam is otherwise unremarkable. A 12-lead EKG obtained today shows sinus rhythm with right bundle branch block. It is as expected for Malinda status post tetralogy repair. Malinda has an excellent hemodynamic result with her tetralogy repair. I would like to see her again in two years in Ped Card Clinic with a follow-up echocardiogram. We will want to measure her right ventricular volumes with that echo. No activity restriction is recommended on a cardiovascular basis.Moreover, I am recommending that Malinda work to become more active. She should exert herself at least four times a week. If she could slow her weight gain she would be better off. I will be glad to hear from you with any new concern regarding Malinda. Thank you for allowing me to see Malinda and participate in her care. Sincerely, Jovan Deng M.D. [facility]:samy cc: Emma Leary [id number] [facility] [phone] Electronically signed by:Jovan Deng M.D. Aug 06 2008 8:54AM CUT OUT STITCHER Acknowledgement documented in this encounter Plan of Treatment Not on filedocumented as of this encounter Visit Diagnoses Not on filedocumented in this encounter
--- OUTSIDE RECORDS SUMMARY | 2022-01-20 19:46 | XMS_ITS | Encounter Summary ---
:1995 Author Organization [place] Address [address] [facility] [place] [address] Care Team Providers Name Role Phone Bebeto Yu Primary Care Provider [phone] Encounter Details Date Type Department Care Team Description 11/22/2013 Orders Only Pediatric Specialty Jovan Deng, TOF (tetralogy of [facility] Fallot) (Primary Dx) [facility] XXX RESIGNED X XX [address] [place] [id number] [phone] Social History Tobacco Use Types Packs/Day Years Used Date Smoking Tobacco: Never Comments: not exposed to 2nd hand smoke Alcohol Use Standard Drinks/Week Comments No 0 (1 standard drink = 0.6 oz pure alcoho l) Sex Assigned at Date Recorded Female 10/31/2020 4:31 PM CDT documented as of this encounter Plan of Treatment Not on filedocumented as of this encounter Visit Diagnoses Diagnosis TOF (tetralogy of Fallot) - Primary Tetralogy of Fallot documented in this encounter Care Teams Director Report Relationship Specialty Start Date End Date Bebeto Yu PCP - General 08/30/13 01/02/17 [address] [place] [address] documented as of this encounter
--- OUTSIDE RECORDS SUMMARY | 2022-01-20 19:46 | XMS_ITS | Encounter Summary ---
:1995 Author Organization [place] Address [address] [place] [address]. [place] [address] Care Team Providers Name Role Phone Gigi, Bebeto Herndon Primary Care Provider [phone] Encounter Details Date Type Department Care Team Description 05/16/2014 Orders Only Pediatric Specialty Mimi Son C ongenital anomaly of [facility] heart tetrology [facility] [address] [place] [address] repa ir (Primary Dx) [place] [id number] [address] [facility] [place], [place] [address] [address] [place], [place] [phone] (Wo rk) [address] [phone] Social History Tobacco Use Types Packs/Day Years Used Date Smoking Tobacco: Never Comments: not exposed to 2nd hand smoke Alcohol Use Standard Drinks/Week Comments No 0 (1 standard drink = 0.6 oz pure alcoho l) Sex Assigned at Date Recorded Female 10/31/2020 4:31 PM CDT documented as of this encounter Plan of Treatment Not on filedocumented as of this encounter Results Echo pediatric complete- Future (05/19/2014 3:49 PM SEPARATOR TENDER) Anatomical Region Laterality Modality Echocardiography Specimen (Source) Anatomical Location Collection Method / Collectio n Time Received Time / Laterality Volume Narrative 05/21/2014 7:39 AM SEPARATOR TENDER PEDIATRIC ECHOCARDIOGRAM [facility] [place] [address] [facility], [address] [place] [address] ? Fa x: [phone] [facility]? s [facility] ? Age: ??89 Wt ??83 kg ??Ht: ??167 cm ??BSA: ?? 1.9 m2 ??BP: Xcelera ?? X Ray Service Technician: ?? [facility] INDICATION: ??Tetralogy A cardiac ultrasound study based on an e xam which included: M-Mode ??2-D ??Doppler ??Color Flow CONCLUSION: ?? Status post repair of Tetralogy of Fallo t. Normal ventricular contractility. There is no evidence of r ight ventricular outflow tract obstruction. The amount of pulmonary ins ufficiency was unable to be quantified in this study. Normal right v entricular and pulmonary artery pressures. Mild right ventricular enlarg ement. M-Mode Report Left Atrium ?? 42 ??mm Aortic Root ??35 ??mm LV end Diastolic ??48 ?? mm LV end Systolic ?? 29 ??mm Shortening Fraction ? 39% Intravent Septum ??9 ??mm LV Post Wall ??8 ??mm ?? 1. ??Normal left atrial dimension. 2. ??Normal left ventricular dimensions and contractility. TWO-D ECHO: Recordings are performed from parasterna l, apical, subcostal and suprasternal notch windows. Echocardiogr aphic images are very suboptimal due to poor acoustic windows. The patien t is postoperative complete repair of Tetralogy of Fallot. Left and right v entricular contractility is qualitatively normal. There is mild righ t ventricular enlargement with a bi-plane left ventricular end diastolic volume of 94 ml/m2. The right ventricular ejection fraction is 62%. Th e ventricular septum is intact. There is no evidence of pericardial effu gena. DOPPLER REPORT: Color flow and spectral Doppler are perf ormed. ??There is no mitral regurgitation. There is trivial tricuspi d insufficiency with a peak velocity of 2.3 m/sec, implying a right ventricular systolic pressure of 22 mmHg plus right atrial pressure. ??No rmal flows are recorded in the main pulmonary artery, left ventricular outfl ow tract and ascending aorta. The amount of pulmonary insufficiency was un able to be determined in this study. Antegrade flow across the ventric ular outflow into the main pulmonary artery has a peak velocity of 1.7 m/sec, implying a peak instantaneous gradient of 11 mmHg. ??The re is no evidence of a [id number] shunt at atrial, ventricul ar or great artery levels. 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
--- OUTSIDE RECORDS SUMMARY | 2022-01-20 19:46 | XMS_ITS | Encounter Summary ---
:1995 Author Organization [place] Address [address] [facility] [place] [address] Care Team Providers Name Role Phone Clinic, Beb[facility] [place] Primary Care Provider Encounter Details Date Type Department Care Team Description 01/12/2017 Orders Only [facility] Mimi Son, TOF (tetralogy of Health Pediatric MBBS Fallot) (Primary Dx) Specialty Clinic [address] [place] [address] [place] [address] [id number] [phone] Social History Tobacco Use Types Packs/Day Years Used Date Smoking Tobacco: Never Smokeless Tobacco: Never Comments: Mom smokes outside home Alcohol Use Standard Drinks/Week Comments No 0 (1 standard drink = 0.6 oz pure alcoho l) Sex Assigned at Date Recorded Female 10/31/2020 4:31 PM CDT documented as of this encounter Plan of Treatment Not on filedocumented as of this encounter Results Echo pediatric complete- Future (01/16/2017 10:24 AM CDT) Anatomical Region Laterality Modality Echocardiography Specimen (Source) Anatomical Collection Method Collection Time Re ceived Time Location / / Volume Laterality 01/16/2017 9:58 AM CDT Narrative 01/16/2017 10:24 AM CDT [id number]^SIVANANDAM^MIYA^ ?Study ID: [id number] ?[facility] ? [address] [facility] [address] ?[place] [address] ? Pediatric Echocardiogram __ Name: JUANA SCHNEIDER Reji Study Date: 01/16/2017 09:58 AM ?Patient Location: [facility] ?Age: 21 yrs : 1995 ?BP: 111/76 mmHg Gender: Female Patient Class: Outpatient ?Height: 169 cm Ordering Provider: MIYA SHAH ? Weight: 102 kg Referring Provider: MIYA SHAH ?BSA: 2.1 m2 Performed By: Jerry Guerrero RDCS Report approved by: Latonya Rosenberg Reason For Study: , Tetralogy of Fallot __ CONCLUSIONS Patient after valve sparing repair for t etralogy of Fallot. There is no residual ventricular level shunt. Normal right and left ventricular systolic function. There is mild flow acceleratio n across the pulmonary valve. There is no significant pulmonary valve insuffici ency. Trivial tricuspid valve insufficiency. Normal right ventricular [...] veins: The systemic venous return is normal. Co patt flow demonstrates flow from two pulmonary veins entering the left atrium . Atria and atrial septum: Normal right atrial size. The left atriu m is normal in size. There is no atrial level shunting. Atrioventricular valves: The tricuspid valve is normal in appeara nce and motion. Trivial tricuspid valve insufficiency. Normal right ventri cular systolic pressure. Estimated right ventricular systolic pressure is 2 4 mmHg plus right atrial pressure. The mitral valve is normal in appearance and motion. There is no mitral valve insufficiency. Ventricles and Ventricular Septum: Normal right and left ventricular systol ic function. Normal left ventricular size. Normal left ventricular systolic f unction. The ventricular septal defect has been baffled to the aorta. There is no residual ventricular level shunt. Outflow tracts: Normal great artery relationship. There is unobstructed flow through the right ventricular outflow tract. There is mild flow acceleration across the pulmonary valve. There is no pulmonary v alve insufficiency. There is unobstructed flow through the left ventr icular outflow tract. Tricuspid aortic valve with normal appearance and motion. [...] descending thoracic and abdominal aorta. Arterial Shunts: There is no arterial level shunting. Coronaries: The aortic sinuses are rotated clockwise , thus the right coronary arises more anterior than usual and the left main co ronary arises more posterior than usual. Effusions, catheters, cannulas and leads : No pericardial effusion. MMode/2D Measurements & Calculations LA dimension: 4.6 cm ? Ao root diam: 3.7 cm LA/Ao: 1.2 Time Measurements LVET: 0.26 sec Doppler Measurements & Calculations MV E max benitez: 74.7 cm/sec ? Ao V2 max: 150.7 cm/sec MV A max benitez: 54.3 cm/sec ? Ao max P.1 mmHg MV E/A: 1.4 LV IVRT: 0.07 sec LV V1 max: 94.4 cm/sec ?PA V2 max: 143.9 cm/sec LV V1 max P.6 mmHg ?PA max P.3 mmHg RV V1 max: 82.1 cm/sec ?TR max benitez: 242.1 cm/sec RV V1 max P.7 mmHg ?TR max P.4 mmHg Lateral E/e': 6.3 ? LV Tei Index: 0.42 Medial E/e': 7.4 asc Ao max benitez: 59.8 cm/sec ? desc Ao max benitez: 148.7 cm/sec asc Ao max P.4 mmHg ? desc Ao max P.8 mmHg Lat Peak E' Benitez: 11.8 cm/sec ?Med Peak E' Benitez: 10.0 cm/sec MV Close to Open: 0.37 sec [place] 2D Z-SCORE VALUES Measurement Name Value Z-ScorePredictedN ormal Range Ao sinus diam(2D)3.8 cm1.9 ?3.1 ?2.5 - 3.[address] Jx Diam(2D)2.7 cm LVLd apical(4ch) 9.5 cm LVLs apical(4ch) 7.7 cm [place] Z-Scores (Measurements & Calculat ions) Measurement NameValue ?Z-ScorePre dictedNormal Range IVSd(MM) ?1.0 cm ? -0.48 ? ?1.1 ?0.75 - 1.43 IVSs(MM) ?1.4 cm ? -0.26 ? ?1.5 ?1.1 - 1.9 LVIDd(MM) ? 4.8 cm ? -1.5 ?? 5.5 ?4.6 - 6.3 LVIDs(MM) ? 2.7 cm ? -2.0 ?? 3.6 ?2.7 - 4.4 LVPWd(MM) ? 1.0 cm ? -0.09 ?? 1.0 ?0.74 - 1.30 LVPWs(MM) ? 1.7 cm LV mass(C)d(MM) 174.4 grams-1.4 ?? 230.0 ?154.5 - 342.4 FS(MM) ?43.3 % ? 2.1 ?34.9 ? 28.7 - 42.6 Report approved by: Latonya Rosenberg 01/16/2017 10:24 AM Procedure Note Greta Valverde MD - 01/16/2017Forma tting of this note might be different from the original. [id number] [facility] [id number]^PABLO^MIYA^ Study ID: [id number] [facility] [address] [place] [address], [place] [address] Pediatric Echocardiogram __ Name: WYATT JUANA L Study Date: 01/16/2017 09:58 AM Patient Location: [facility] Age: 21 yrs : 1995 BP: 111/76 mmHg Gender: Female Patient Class: Outpatient Height: 169 cm Ordering Provider: MIYA SHAH eight: 102 kg Referring Provider: MIYA SHAH BSA: 2.1 m2 Performed By: Jerry Guerrero RDCS Report approved by: Latonya Rosenberg Reason For Study: , Tetralogy of Fallot __ CONCLUSIONS Patient after valve sparing repair for t etralogy of Fallot. There is no residual ventricular level shunt. Normal right and left ventricular systolic function. There is mild flow acceleratio n across the pulmonary valve. There is no significant pulmonary valve insuffici ency. Trivial tricuspid valve insufficiency. Normal right ventricular [...] veins: The systemic venous return is normal. Co patt flow demonstrates flow from two pulmonary veins entering the left atrium . Atria and atrial septum: Normal right atrial size. The left atriu m is normal in size. There is no atrial level shunting. Atrioventricular valves: The tricuspid valve is normal in appeara nce and motion. Trivial tricuspid valve insufficiency. Normal right ventri cular systolic pressure. Estimated right ventricular systolic pressure is 2 4 mmHg plus right atrial pressure. The mitral valve is normal in appearance and motion. There is no mitral valve insufficiency. Ventricles and Ventricular Septum: Normal right and left ventricular systol ic function. Normal left ventricular size. Normal left ventricular systolic f unction. The ventricular septal defect has been baffled to the aorta. There is no residual ventricular level shunt. Outflow tracts: Normal great artery relationship. There is unobstructed flow through the right ventricular outflow tract. There is mild flow acceleration across the pulmonary valve. There is no pulmonary v alve insufficiency. There is unobstructed flow through the left ventr icular outflow tract. Tricuspid aortic valve with normal appearance and motion. [...] descending thoracic and abdominal aorta. Arterial Shunts: There is no arterial level shunting. Coronaries: The aortic sinuses are rotated clockwise , thus the right coronary arises more anterior than usual and the left main co ronary arises more posterior than usual. Effusions, catheters, cannulas and leads : No pericardial effusion. MMode/2D Measurements & Calculations LA dimension: 4.6 cm Ao root diam: 3.7 c m LA/Ao: 1.2 Time Measurements LVET: 0.26 sec Doppler Measurements & Calculations MV E max benitez: 74.7 cm/sec Ao V2 max: 150 .7 cm/sec MV A max benitez: 54.3 cm/sec Ao max P.1 mmHg MV E/A: 1.4 LV IVRT: 0.07 sec LV V1 max: 94.4 cm/sec PA V2 max: 143.9 cm/sec LV V1 max P.6 mmHg PA max P.3 mm Hg RV V1 max: 82.1 cm/sec TR max benitez: 242.1 cm/sec RV V1 max P.7 mmHg TR max P.4 m mHg Lateral E/e': 6.3 LV Tei Index: 0.42 Medial E/e': 7.4 asc Ao max benitez: 59.8 cm/sec desc Ao max benitez: 148.7 cm/sec asc Ao max P.4 mmHg desc Ao max P.8 mmHg Lat Peak E' Benitez: 11.8 cm/sec Med Peak E' Benitez: 10.0 cm/sec MV Close to Open: 0.37 sec [place] 2D Z-SCORE VALUES Measurement Name Value Z-ScorePredictedN ormal Range Ao sinus diam(2D)3.8 cm1.9 3.1 2.5 - 3.[address] Jx Diam(2D)2.7 cm LVLd apical(4ch) 9.5 cm LVLs apical(4ch) 7.7 cm [place] Z-Scores (Measurements & Calculat ions) Measurement NameValue Z-ScorePredictedNo rmal Range IVSd(MM) 1.0 cm -0.48 1.1 0.75 - 1.43 IVSs(MM) 1.4 cm -0.26 1.5 1.1 - 1.9 LVIDd(MM) 4.8 cm -1.5 5.5 4.6 - 6.3 LVIDs(MM) 2.7 cm -2.0 3.6 2.7 - 4.4 LVPWd(MM) 1.0 cm -0.09 1.0 0.74 - 1.30 LVPWs(MM) 1.7 cm LV mass(C)d(MM) 174.4 grams-1.4 230.0 15 4.5 - 342.4 FS(MM) 43.3 % 2.1 34.9 28.7 - 42.6 Report approved by: Latonay Rosenberg 01/16/2017 10:24 AM Mimi [facility] CV PEDS ECHO ORDERABLES documented in this encounter Visit Diagnoses Diagnosis TOF (tetralogy of Fallot) - Primary Tetralogy of Fallot TOF (tetralogy of Fallot) Tetralogy of Fallot documented in this encounter Care Teams Shiftman Relationship Specialty Start Date End Date [facility] PCP - General 01/03/17 04/25/21 [address] [place] [address] documented as of this encounter
--- OUTSIDE RECORDS SUMMARY | 2022-01-20 19:46 | XMS_ITS | Encounter Summary ---
:1995 Author Organization [place] Address [address] [place] [address] Care Team Providers Name Role Phone Clinic, Bebeto [place] Primary Care Provider [phone] Reason for Visit Reason Onset Date Comments Refill Request 04/18/2014 Encounter Details Date Type Department Care Team Description 04/18/2014 Refill Pediatric Specialty Clinic, Mimi Mae MBBS Refill Request [address] [place] [address] [address] [facility] [place] [address] [phone] Social History Tobacco Use Types Packs/Day Years Used Date Smoking Tobacco: Never Comments: not exposed to 2nd hand smoke Alcohol Use Standard Drinks/Week Comments No 0 (1 standard drink = 0.6 oz pure alcoho l) Sex Assigned at Date Recorded Female 10/31/2020 4:31 PM CDT documented as of this encounter Plan of Treatment Not on filedocumented as of this encounter Visit Diagnoses Diagnosis Tetralogy of Fallot - Primary documented in this encounter Care Teams Building Maintenance Repairer Relationship Specialty Start Date End Date Clinic, Bebeto [place] PCP - General 08/30/13 01/02/17 [address] [place] [address] documented as of this encounter
--- OUTSIDE RECORDS SUMMARY | 2022-01-20 19:46 | XMS_ITS | Encounter Summary ---
:1995 Author Organization [place] Address [address] [place] [address] Care Team Providers Name Role Phone Clinic, Beb[facility] [place] Primary Care Provider [phone] Reason for Visit Reason Comments Suicidal Encounter Details Date Type Department Care Team Description 11/04/2015 Emergency [facility] Waqar Rivero [facility] Emergency Dep sandra Rondon MD [address] [facility] [phone] [address] [facility] [phone] [place], [place] [address] (Wo rk) Social History Tobacco Use Types Packs/Day Years Used Date Smoking Tobacco: Never Smokeless Tobacco: Never Comments: Mom smokes outside home Alcohol Use Standard Drinks/Week Comments No 0 (1 standard drink = 0.6 oz pure alcoho l) Sex Assigned at Date Recorded Female 10/31/2020 4:31 PM CDT documented as of this encounter Last Filed Vital Signs Vital Sign Reading Time Taken Comments Blood Pressure 104/67 11/04/2015 5:00 AM CDT Pulse - - Temperature 38 ??C (100.4 ??F) 11/04/2015 1:30 AM CDT Respiratory Rate 18 11/04/2015 1:24 AM CDT Oxygen Saturation 97% 11/04/2015 4:30 AM CDT Inhaled Oxygen Concentration - - Weight - - Height 170.2 cm (5' 7) 11/04/2015 1:24 AM CDT Body Mass Index - - documented in this encounter Discharge Instructions Discharge InstructionsWaqar Rivero MD - 11/04/2015 5:44 AM CDT Images from the original note were not included. Please make an appointment to follow up with your primary health organisation manager in 1-2 days if not improving and return to the ED immediately if your symptoms worsen in any way. Depression Depression is one of the most common mental health problems today. It is not just a state of unhappiness or sadness. It is a true disease. The cause seems to be related to a decrease in chemicals that transmit signals in the brain. Having a family history of depression, alcoholism or suicide increasesthe risk. Chronic illness, chronic pain, migraine headaches and high emotional stress also increase the risk. Depression can cause many different symptoms, such as: -- Loss of appetite -- Over-eating -- Not being able to sleep -- Sleeping too much -- Tiredness not related to physical exertion -- Restlessness or irritability -- Slowness of movement or speech -- Feeling depressed or withdrawn -- Loss of interest in things you once enjoyed -- Difficulty in concentrating, poor memory, have trouble making decisions -- Thoughts of harming or killing oneself, or thoughts that life is not worth living -- Low self-esteem The best treatment for depression is a combination of medicine and psychotherapy. Antidepressant medicines can reduce suffering and can improve the ability to function during the depressed period. Therapy can offer emotional support and help you understand emotional factors that may be causing the depr ession. Home Care: 1) Be kind to yourself. Make it a point to do things that you enjoy (gardening, walking in nature, going to a movie, etc.). Reward yourself for small successes. 2) Take care of your physical body. Eat a balanced diet (low in saturated fat and high in fruits andvegetables). Establish an exercise plan at least 3 times a week for 30 minutes. Even mild-moderate exercise (like brisk walking) can make you feel better. 3) Avoid alcohol, which can make depression worse. Follow-Up with your doctor as advised. It is important to keep in contact with a health care provider until your symptoms begin to improve. Get Prompt Medical Attention if any of the following occur: -- Feeling extreme depression, fear, anxiety, or anger toward yourself or others -- Feeling out of control -- Feeling that you may try to harm yourself or another -- Hearing voices that others do not hear -- Seeing things that others do not see -- Can???t sleep or eat for 3 days in a row ?? [id number] [employer]. [address] [place] [address], [place] [address]. All rights reserved. This information is not intended as a substitute for professional medical care. Always follow your healthcare professional's instructions. documented in this encounter ED Notes Waqar Rivero MD - 11/04/2015 1:37 AM CDT History Chief Complaint: Suicidal HPI Malinda Medina is a 19 year old female with a history of anxiety and depression who presents with thoughts of self harm. Before the examination began, the patient requests that her mother not be in the room for initial examination. The patient states that her and her mother are not close to each other and does not believe she would be able to help. The patient and her mother had been close in the past but she does not usually talk to her about these types of things as she would rather deal with itby herself. The patient states that today is the 6 month anniversary of her and her boyfriend. Whilethey were hanging out this afternoon the patient states that things felt weird, and at 1150 while they were walking to the car, the patient's boyfriend told her that he did not want o be with her anymore. The patient went to her car, started crying, and called her friend from [place] and her mother becauseshe needed comforting. The patient first talked to her mother and informed her of the story. The patient than called her friend from [place] and told him that she didn't feel suicidal, but that she didn't know what to do. Her friend told her to call the emergency room for further help. When she called the emergency room she said that she didn't know if she was going to hurt herself, so they informed her to present to the emergency department. The patient has never tried to commit suicide or tried to hurt herself, however she has thought about hurting herself and the feelings usually go away after a day. The patient is not on medication for anxiety or depression and she does not see a fish cake maker. Upon speaking with the mother, she states that when her daughter often exaggerates and takes things very seriously. When the patient called the mother she said that thy boy who broke up with her was her life. The also states that the patient has never tried to hurt herself, and that she has struggled with depression in the past. The mom is happy that the patient did the smart thing and presented to the emergency room, and states that with spending time in hospitals due to her past heart troubles sheenjoys the atmosphere and the doctors. Allergies: The patient has no known drug allergies. Medications: The patient is currently on no regular medications. Past Medical History: Depression Anxiety Past Surgical History: Tatraology of fllot Family History: History reviewed. No significant family history. Social History: Relationship status: Single Tobacco use: Neg Alcohol use: Neg Patient is not sexually active. The patient presents alone. Review of Systems Constitutional: Positive for thoughts of self harm All other systems reviewed and are negative. Physical Exam First Vitals: BP: 102/81 mmHg Heart Rate: 89 Temp: 100.4 ??F (38 ??C) Resp: 18 Height: 170.2 cm (5' 7) SpO2: 96 % Physical Exam Nursing note and vitals reviewed Filed Vitals: 11/04/15 0124 11/04/15 0130 BP: 102/81 Temp: 100.4 ??F (38 ??C) TempSrc: Temporal Resp: 18 Height: 1.702 m (5' 7) SpO2: 96% Constitutional: Oriented to person, place, and time. Well-developed and well- nourished. Mild distress. HENT: Head: Normocephalic, atraumatic. Mouth/Throat: Clear and moist. No exudate. Eyes: Conjunctivae and EOM are normal. PERRL B. No discharge or icterus. Neck: FROM intact, supple. No JVD. No tracheal deviation. No thyromegaly visible. Cardiovascular: RRR. No murmur. Pulmonary/Chest: Effort normal CTA B. No stridor or respiratory distress. No wheezes or rales. No tenderness to palpation. Abdominal: Soft. Bowel sounds are normal. No distension, tenderness, no guarding. Musculoskeletal: FROM. No edema or tenderness. Lymphadenopathy: No cervical adenopathy. Neurological: AOX3. No cranial nerve deficit. Normal muscle tone and coordinationl. Skin: Warm, dry, no rash or erythema, not diaphoretic. Psychiatric: Depressed normal thought content. Emergency Department Course Emergency Department Course: Nursing notes and vitals reviewed. I performed an exam of the patient as documented above. 0408: I consulted DEC over the phone. 0425: I rechecked the patient. Findings and plan explained to the Patient and mother. Patient discharged home with instructions regarding supportive care, medications, and reasons to return. The importance of close follow-up was reviewed. Impression & Plan Medical Decision Making: Malinda Medina is a 19 year old female who presents for evaluation of depressed mood. There is a history of depression in the past and they are not on medications. There is no signs at this point of a general medical problem causing depression (brain tumor, metabolic derangement like hypothyroidism). There are no signs of serious decompensation warranting psychiatric hospitalization or 72 hold (no suicidal or homicidal ideation, no danger to self). Supportive outpatient management is therefore indicated. I did have DEC evaluate the patient, their recommendations are noted in separate note. They as well agree with the above recommendations. Diagnosis: ICD-10-CM 1. Reactive depression F32.9 Disposition: Discharge to home with primary care follow up. I, Dimitry Fowler, am serving as a scribe on 11/04/2015 at 1:58 AM to personally document services performed by Waqar Rivero, based on my observations and the provider's statements to me. [facility] EMERGENCY DEPARTMENT Waqar Rivero MD 11/05/15 0613 Waqar Rivero MD 11/05/15 0614 Nelson Keys RN - 11/04/2015 1:32 AM CDT Pt boyfriend broke up with her and felt like hurting self after with no plan Gregg Becerril RN - 11/04/2015 1:23 AM CDT Bed: ED08 Expected date: 11/04/15 Expected time: Means of arrival: Comments: [id number] documented in this encounter Plan of Treatment Not on filedocumented as of this encounter Visit Diagnoses Diagnosis Reactive depression Dysthymic disorder documented in this encounter Care Teams Activities Leader Relationship Specialty Start Date End Date Clinic, Bebeto [facility] PCP - General 08/30/13 01/02/17 [address] [place] [address] documented as of this encounter
--- OUTSIDE RECORDS SUMMARY | 2022-01-20 19:46 | XMS_ITS | Encounter Summary ---
:1995 Author Organization [place] Address [address] [facility] [place] [address] Care Team Providers Name Role Phone Clinic, [facility] Primary Care Provider [phone] Reason for Visit (Routine) - Closed Specialty Diagnoses / Procedures Referred By Contact Refer red To Contact Cardiology Diagnoses Per Dr. Tavarez, 48-hour holter, Palpitations Zz Sh Car diology Img Procedures HOLTER MONITOR [address] [place] [address] Phone: Referral ID Status Reason Start Date Expiration Date Visits Requ ested Visits Authorized [id number] Closed 01/04/2017 01/04/2018 1 1 Encounter Details Date Type Department Care Team Description 01/06/2017 [facility] Rad[facility] - P MD Heart [facility] [address] [place] [address] [address] [place], [place] [phone] (Wo rk) Social History Tobacco Use Types [...] Comme nts HOLTER MONITOR 48 HOUR Routine 01/09/2017 Palpitations Resul ts for this - ADULT procedure are i n the results section . documented in this encounter Results Holter Monitor 48 hour - Adult (01/09/2017) Narrative RADIANT - 01/09/2017 [facility] RADIOLOGY [facility] HEART IMAGING [address] [place] [address] 01/06/2017 Patient: ??Malinda [place] Chart: [id number] : ??1995 Age: ??21 year old Sex: ??female Procedure: ??Holter Monitor Placed: plea se see scanned document for result once interpretation is completed. [employer] Radio Operator performing hook-up: ??Leo Waggoner Matheus Tavarez MD CV CARDIAC SERVICES ORDERABL ES Performing Organization Address City/State/ZIP Code Phon e Number RADIANT documented in this encounter Visit Diagnoses Diagnosis Palpitations documented in this encounter Care Teams Precision Lens Grinder Relationship Specialty Start Date End Date [facility], Bebeto [place] PCP - General 01/03/17 04/25/21 [address] [place] [id number] documented as of this encounter
--- OUTSIDE RECORDS SUMMARY | 2022-01-20 19:46 | XMS_ITS | Encounter Summary ---
:1995 Author Organization [address] [place] [address] Care Team Providers Name Role Phone Gigi, [facility] [place] Primary Care Provider [phone] Reason for Referral (Routine) - Closed Specialty Diagnoses / Procedures Referred By Contact Refer red To Contact Diagnoses TOF (tetralogy of Fallot) Anurag Lamas MBBS Procedures Echo Pediatric (TTE) Complete ZZHC TTE W/DOPPLER, COMPLETE ZZHC ECHO COMPLETE W DOPPLER W/O CONTRAST [address] [place] [address] [id number] 4 Referral ID Status Reason Start Date Expiration Date Visits Requ ested Visits Authorized [id number] Closed 03/12/2020 03/12/2021 1 1 RNER Encounter Details Date Type Department Care Team Description 03/12/2020 Orders Only [facility] Anurag Lamas, TOF (tetralogy of Pediatric Specialty MBBS Fallot) (Primary Dx) Clinic [address] [place] [id number] [phone] Social History Tobacco Use Types Packs/Day Years [...] been in contact with No / Unsure 02/29/2020 12:14 PM DEHORNER someone who was confirmed or suspected to have Coronavirus / COVID-19? documented as of this encounter Plan of Treatment Not on filedocumented as of this encounter Results ECHO PEDIATRIC COMPLETE (03/16/2020 2:27 PM DEHORNER) Anatomical Region Laterality Modality Echocardiography Specimen (Source) Anatomical Collection Method Collection Time Re ceived Time Location / / Volume Laterality 03/16/2020 2:06 PM DEHORNER Narrative 03/16/2020 2:36 PM DEHORNER [id number]^CYDNEY^ANURAG ? Study ID: [id number] [facility] ?[address], [address] Children?[facility] ? [place] [address] ? Pediatric Echocardiogram __ Name: JUANA SCHNEIDER Study Date: 03/16/2020 02:06 PM ? Patient Location: [facility] ? Age: 24 yrs : 1995 ? [...] Range LVLd apical(4ch)8.9 cm LVLs apical(4ch)7.4 cm [place] Z-Scores (Measurements & Calculat ions) Measurement NameValue [...] note might be different from the original. [id number]^CYDNEY^ANURAG Study ID: [id number] [facility] [address], [address] [place] [address] Pediatric Echocardiogram __ Name: JUANA SCHNEIDER Study [...] Range LVLd apical(4ch)8.9 cm LVLs apical(4ch)7.4 cm [place] Z-Scores (Measurements & Calculat ions) Measurement NameValue [...] Lipscomb MD on 03/16/2020 02:36 PM Anurag BLOCKBS CV PEDS ECHO ORDERABLES documented in this encounter Visit Diagnoses Diagnosis TOF (tetralogy of Fallot) - Primary Tetralogy of Fallot TOF (tetralogy of Fallot) Tetralogy of Fallot documented in this encounter Care Teams Public Relations Director Relationship Specialty Start Date End Date [facility], Bebeto Wallace PCP - General 01/03/17 04/25/21 [address] [place] [phone] documented as of this encounter
--- OUTSIDE RECORDS SUMMARY | 2022-01-20 19:46 | XMS_ITS | Encounter Summary ---
:1995 Author Organization [place] Address [address] [place] [address] Care Team Providers Name Role Phone Clinic, Bebeto [place] Primary Care Provider Reason for Visit Reason Comments Heart Problem Follow-up on TOF Repair. Encounter Details Date Type Department Care Team Description 01/16/2017 Office Visit [facility] Mimi Son Tetr [facility] Pediatric MBBS (Primary Dx) Specialty Clinic [address] [address] [address] [place] [id number] [phone] Social History Tobacco Use Types Packs/Day Years Used Date Smoking Tobacco: Never Smokeless Tobacco: Never Comments: Mom smokes outside home Alcohol Use Standard Drinks/Week Comments No 0 (1 standard drink = 0.6 oz pure alcoho l) Sex Assigned at Date Recorded Female 10/31/2020 4:31 PM CDT documented as of this encounter Last Filed Vital Signs Vital Sign Reading Time Taken Comments Blood Pressure 111/76 01/16/2017 9:45 AM CDT Pulse 98 01/16/2017 9:45 AM CDT Temperature - - Respiratory Rate - - Oxygen Saturation 97% 01/16/2017 9:45 AM CDT Inhaled Oxygen Concentration - - Weight 102.4 kg (225 lb 12 oz) 01/16/2017 9:45 AM CDT Height 169 cm (5' 6.54) 01/16/2017 9:45 AM CDT Body Mass Index 35.85 01/16/2017 9:45 AM CDT documented in this encounter Patient Instructions Patient InstructionsLuz Butler CMA - 01/16/2017 10:30 AM CDT [facility] [facility] [phone], option 1 Sayra Knapp RN Earth Science Professor: [phone] After Hours Emergency: [phone]. Ask for the on-call doctor for the specialty you are calling for be paged. Prescription Renewals: Your pharmacy must fax requests to [phone]. Please allow 2-3 days for prescriptions to be authorized. If your physician has ordered an x-ray or MRI, you may schedule this test by calling [facility] Radiologyin [place] at [phone]. 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 Here for follow-up. She was recently evaluated at [facility] for chest pain. Her EKG, CXR Holter were unchanged. She had an echo today, shows no residual shunts, good function. Mild right heart enlargement. I have reassured her that her chest pain is benign, precordial catch and will resolve over time. Shecould take tylenol or ibuprofen if needed. She need to be evaluated further for her headaches, which may be migraine. I have recommended her tosee her primary physician. She need to eat 3 meals/day, drink adequate amount of fluids, at least 60-70 ounces/day. Exercise regularly and if she continue to have chest pain, will plan for a stress test. PLAN: Follow-up in 1 year with echo, EKG Need a Cardiac MRI in future. No Activity Restrictions No need for SBE Prophylaxis Results were reviewed with the family. Patient [...] that surgery. She was recently evaluated at [facility] for chest pain. She describes her pain in the middle of her sternum, sometimes she has it in the right side of her chest. Does not radiates. She feels her HR is fast during these episodes. No dizziness. Sometimes she is out of breath. She also started to notice while she is working, she has tunnel vision, followed by headaches. She rests for a while and her symptoms are relieved. She has been having these symptoms on and off for 2 weeks. During these episodes her ears turn red. She feels weak. Her appetite is low , she thinks she might had flu symptoms. Her EKG, CXR Holter were unchanged. She had an echo today, shows no residual shunts, good function. Mild right heart enlargement. I have reassured her that her chest pain is benign, precordial catch and will resolve over time. Shecould take tylenol or ibuprofen if needed. Holter shows normal HR variability, during the chest pain episodes she had sinus rhythm, no significant ectopy. She had few PVC's and PAC's. No sustained tachycardia. She need to be evaluated further for her headaches, which may be migraine. I have recommended her tosee her primary physician. She need to eat 3 meals/day, drink adequate amount of fluids, at least 60-70 ounces/day. Past Medical History: No Recent Hospitalizations No Recent Operations Family and Social History: No history of congenital heart disease Non-contributory Review of Systems: A comprehensive Review of Systems was performed is negative other than noted in the HPI Medications: I have reviewed this patient's current medications No current outpatient prescriptions on file. No current facility-administered medications for this visit. Physical Exam: Blood pressure 111/76, pulse 98, height 5' 6.53 (169 cm), weight 225 lb 12 oz (102.4 kg), last menstrual period 12/27/2016, SpO2 97 %, not currently . General - NAD, awake, alert HEENT - NC/AT EOMI Cardiac - RRR nl S1 and S2 [place], systolic murmur grade 2/6 LSB, diastolic murmur garde 1/6. No click, thrill or heave Respiratory - Lungs clear Abdominal - Liver at RCM Extremity Nl pulses in brachial and femoral areas, No Clubbing, Edema, Cyanosis Skin - No rash Neuro - Nl gait, posture, tone Labs Echocardiography today: Results: Patient after valve sparing repair for tetralogy of Fallot. There is no residual ventricular level shunt. Normal right and left ventricular systolic function. There is mild flow acceleration across the pulmonary valve. There is no significant pulmonary valve insufficiency. Trivial tricuspid valve insufficiency. Normal right ventricular systolic pressure. Sincerely, Jaqui Nelson MD, JESSICA Fountain Helper Talent Assistant of Pediatrics [facility] CC: Copy to patient Emma Leary [facility] [id number] documented in this encounter Nursing Notes Luz Butler CMA - 01/16/2017 10:30 AM CDT Chief Complaint Patient presents with ??? Heart Problem Follow-up on TOF Repair. Initial BP 111/76 (BP Location: Right arm, Patient Position: Sitting, Cuff Size: Adult Large) Pulse 98 Ht 5' 6.53 (169 cm) Wt 225 lb 12 oz (102.4 kg) LMP 12/27/2016 SpO2 97% BMI 35.85 kg/m2 Estimated body mass index is 35.85 kg/(m^2) as calculated from the following: Height as of this encounter: 5' 6.53 (169 cm). Weight as of this encounter: 225 lb 12 oz (102.4 kg). Medication Reconciliation: complete documented in this encounter Plan of Treatment Not on filedocumented as of this encounter Visit Diagnoses Diagnosis Tetralogy of Fallot - Primary documented in this encounter Care Teams Buckle Sewer Relationship Specialty Start Date End Date [facility] PCP - General 01/03/17 04/25/21 [address] [place] [address] documented as of this encounter
--- OUTSIDE RECORDS SUMMARY | 2022-01-20 19:46 | XMS_ITS | Encounter Summary ---
:1995 Author Organization [place] Address On license of [facility] [place] [address] Care Team Providers Name Role Phone [facility] [place] Primary Care Provider [phone] Encounter Details Date Type Department Care Team Description 02/29/2020 Travel Social History Tobacco Use Types Packs/Day [...] with No / Unsure 02/29/2020 12:14 PM REMOTE BROADCAST ENGINEER someone who was confirmed or suspected to have Coronavirus / COVID-19? documented as of this encounter Plan of Treatment Not on filedocumented as of this encounter Visit Diagnoses Not on filedocumented in this encounter Care Teams Tube Cleaner Relationship Specialty Start Date End Date [facility] [facility] - [facility] 01/03[facility]17 04/25/21 [address] [place] [address] documented as of this encounter
--- OUTSIDE RECORDS SUMMARY | 2022-01-20 19:46 | XMS_ITS | Encounter Summary ---
:1995 Author Organization [place] Address [facility] [place] [address] Care Team Providers Name Role Phone Bebeto Yu Primary Care Provider [phone] Reason for Visit Reason Comments Allied Health Visit hpv Encounter Details Date Type Department Care Team Description 02/04/2014 Allied Health/Nurse Health [facility] ied Health Visit Visit Clinic [place] (hpv) [address] [place] [address] Social History Tobacco Use Types Packs/Day Years Used Date Smoking Tobacco: Never Comments: not exposed to 2nd hand smoke Alcohol Use Standard Drinks/Week Comments No 0 (1 standard drink = 0.6 oz pure alcoho l) Sex Assigned at Date Recorded Female 10/31/2020 4:31 PM CDT documented as of this encounter Plan of Treatment Not on filedocumented as of this encounter Visit Diagnoses Diagnosis Need for prophylactic vaccination and in oculation against other viral diseases(V04.89) - Primary Need for prophylactic vaccination and in oculation against other viral diseases documented in this encounter Care Teams Cardiovascular Rn Relationship Specialty Start Date End Date Clinic, Bebeto [place] PCP - General 08/30/13 01/02/17 [address] [place] [address] documented as of this encounter
--- OUTSIDE RECORDS SUMMARY | 2022-01-20 19:46 | XMS_ITS | Encounter Summary ---
:1995 Author Organization [place] Address [address] [facility] [place] [address] Care Team Providers Name Role Phone Ashwini Bangura PA-C Primary Care Provider [phone] Reason for Visit Reason Comments Ear Problem Encounter Details Date Type Department Care Team Description 04/23/2013 Office Visit [facility] Willem, Need f or prophylactic vaccination and inoculation against influenza (Primary Dx); [facility] Ashwini Prater PA-C Need for HPV vaccination; [address] [facility] [address] [facility] Ear pain, [place] [address] [phone] Social History Tobacco Use Types Packs/Day Years Used Date Smoking Tobacco: Never Comments: not exposed to 2nd hand smoke Alcohol Use Standard Drinks/Week Comments No 0 (1 standard drink = 0.6 oz pure alcoho l) Sex Assigned at Date Recorded Female 10/31/2020 4:31 PM CDT documented as of this encounter Last Filed Vital Signs Vital Sign Reading Time Taken Comments Blood Pressure 96/68 04/23/2013 3:16 PM TECHNICAL AIDE Pulse - - Temperature 36.6 ??C (97.8 ??F) 04/23/2013 3:16 PM TECHNICAL AIDE Respiratory Rate - - Oxygen Saturation - - Inhaled Oxygen Concentration - - Weight 79.8 kg (176 lb) 04/23/2013 3:16 PM TECHNICAL AIDE Height 167.6 cm (5' 6) 04/23/2013 3:16 PM TECHNICAL AIDE Body Mass Index 28.41 04/23/2013 3:16 PM TECHNICAL AIDE Body Mass Index Percentile 94.95 % 04/23/2013 3:16 PM CS T Growth Chart: CDC (Girls, 2-20 Years) documented in this encounter Progress Notes Amanda Mims - 04/23/2013 5:05 PM CST Injectable Influenza Immunization Documentation 1. Is the person to be vaccinated sick today? No 2. Does the person to be vaccinated have an allergy to eggs or to a component of the vaccine? No 3. Has the person to be vaccinated today ever had a serious reaction to influenza vaccine in the past? No 4. Has the person to be vaccinated ever had Guillain-Aberdeen syndrome? No Form completed by Malinda Medina Form reviewed by Amanda Mims MA Ashwini Lopez PA-C - 04/23/2013 3:12 PM CST SUBJECTIVE: Malinda Medina is a 17 year old female who presents to clinic today for the following health issues: Patient states that her ears have flaky and liquid discharge from her ears when it hurts. Episodes last for 2 days at a time. 6/10 on the pain scale Acute Illness Acute illness concerns?- Ear Pain Onset: On and off for 3-4 M most recent 2 days ago ?? Fever: no ?? Chills/Sweats: no ?? Headache (location?): no ?? Sinus Pressure:no ?? Conjunctivitis: no ?? Ear Pain: YES: bilateral ?? Rhinorrhea: no ?? Congestion: no ?? Sore Throat: no ?? Cough: no ?? Wheeze: no ?? Decreased Appetite: no ?? Nausea: no ?? Vomiting: no ?? Diarrhea: no ?? Dysuria/Freq.: no ?? Fatigue/Achiness: no ?? Sick/Strep Exposure: no Therapies Tried and outcome: None Problem list and histories reviewed & adjusted, as indicated. Additional history: as documented Labs reviewed in [facility] ROS: Constitutional, HEENT, cardiovascular, pulmonary, gi and gu systems are negative, except as otherwise noted. OBJECTIVE: BP 96/68 Temp 97.8 ??F (36.6 ??C) (Oral) Ht 5' 6 (1.676 m) Wt 176 lb (79.833 kg) BMI 28.42 kg/m2 LMP 04/21/2013 ? No Body mass index is 28.42 kg/(m^2). GENERAL APPEARANCE: healthy, alert and no distress HENT: ear canals and TM's normal and nose and mouth without ulcers or lesions RESP: lungs clear to auscultation - no rales, rhonchi or wheezes CV: regular rates and rhythm, normal S1 S2, no S3 or S4 and no murmur, click or rub LYMPHATICS: normal ant/post cervical and supraclavicular nodes ABDOMEN: soft, nontender, without hepatosplenomegaly or masses and bowel sounds normal Diagnostic test results: ASSESSMENT/PLAN: V04.81 Need for prophylactic vaccination and inoculation against influenza (primary encounter diagnosis) Comment: Plan: FLU VACCINE, 3 YRS +, IM [33591], Seasonal Injectionable Immunization Administration [56899] V04.89 Need for HPV vaccination Comment: Plan: HUMAN PAPILLOMAVIRUS VACCINE 388.70 Ear pain, left Comment: ear looks entirely normal but ear canal looks irritated but not infected. Will treat with ear drops and Please follow-up if symptoms fail to resolve or worsen Plan: antipyrine-benzocaine (AURODEX) 54-14 MG/ML RADHAMES Bangura PA-C, [facility] NICAL AIDE documented in this encounter Nursing Notes 04/23/2013 3:00 PM CST >> JULY M VILMA Mathews Apr 23, 2013 3:22 PM Patient presents with: Ear Problem Initial BP 96/68 Temp 97.8 ??F (36.6 ??C) (Oral) Ht 5' 6 (1.676 m) Wt 176 lb (79.833 kg) BMI 28.42 kg/m2 LMP 04/21/2013 ? No Estimated Body mass index is 28.42 kg/(m^2) as calculated from the following: Height as of this encounter: 5' 6(1.676 m). Weight as of this encounter: 176 lb(79.833 kg). BP completed using cuff size: regular July SHIVAM Mims documented in this encounter Plan of Treatment Not on filedocumented as of this encounter Visit Diagnoses Diagnosis Need for prophylactic vaccination and in oculation against influenza - Primary Need for HPV vaccination Need for prophylactic vaccination and in oculation against other viral diseases Ear pain, left documented in this encounter Care Teams Single Needle Tufting Machine Operator Relationship Specialty Start Date End Date Mayela-Ashwini Banda PA-C PCP - General Family Practice 11/26/12 08/29/13 [address] [place] [address] documented as of this encounter
--- OUTSIDE RECORDS SUMMARY | 2022-01-20 19:46 | XMS_ITS | Encounter Summary ---
:1995 Author Organization [place] Address [address] [facility] [place] [address] Care Team Providers Name Role Phone Gigi, Bebeto [place] Primary Care Provider [phone] Encounter Details Date Type Department Care Team Description 10/08/2019 Virtual Visit [facility] Aile up Trixie Patton [address] [place] [address] Latonya Tompkins [place] [address] [facility] [address] [place] [address] [place] [address] [phone] Social History Tobacco Use Types Packs/Day Years Used Date Smoking Tobacco: Never Smokeless Tobacco: Never Comments: Mom smokes outside home Alcohol Use Standard Drinks/Week Comments No 0 (1 standard drink = 0.6 oz pure alcoho l) Sex Assigned at Date Recorded Female 10/31/2020 4:31 PM CDT documented as of this encounter Progress Notes Trixie Patton MD - 10/08/2019 10:53 PM CDT Date: 10/08/2019 22:51:02 Clinician: Trixie Patton Clinician Patient: ramila medina Patient : 1995 Patient Address: [address] [place] [address] [place] [address] Patient Visit Protocol: STD Patient Summary: ramila is a 23 year old ( : 1995 ) female who initiated a Visit for sexually transmitted diseases (STDs). When asked the question Please sign me up to receive news, health information and promotions. , ramila responded No. ramila started this Visit because someone she has had sex with has been diagnosed with chlamydia. Symptom details ramila does not have any symptoms she worries are caused by an STD. Precipitating events ramila is currently in a sexual relationship. It has been 2-12 months since ramila has had sex with someone other than her current partner. She thinks her partner has had sex with someone else since their relationship started. In the past12 months, ramila has had more than 1 sexual partner. She has been sexually active with men. Pertinent medical history ramila has been diagnosed with chlamydia. She was diagnosed with chlamydia within the past 12 months and completed treatment for it. ramila does not smoke or use smokeless tobacco. She denies and denies . She has menstruated in the past month. Reason for repeat visit for the same protocol within 24 hours: Incorrectly filled form See the History of referred by protocol and completed visits section for additional details on the previous visit. MEDICATIONS: No current medications, ALLERGIES: NKDA Clinician Response: Dear ramila, Based on the information provided, you are eligible for treatmentdue a known exposure to chlamydia. Learning that someone you had sex with has a sexually transmitteddisease (STD) is difficult, but it is actually very common, so there is no reason to feel embarrassed or panicked. In fact, STDs are so common that anyone who has sex is at risk. It does not matter howold you are, the type of sex you practice, or even your relationship status. Medication information I am prescribing: Azithromycin (Zithromax TRI-HANSEL) 500 mg oral tablet. Take 2 tablets by mouth 1 time per day for 1 day. There are no refills with this prescription. Do not have unprotected sex or abstain 7 days after completing treatment. There is a chance you could spread the infection to sexual partners prior to that time. Self care The following tips will decrease the chance you will get an STD in the future: Everyone under the age of 25 who is sexually active should get tested for STDs every year. Althoughit is not easy to think about, you should be tested even if you have not had any new partners. If you begin a relationship with someone new, talk with them about getting tested before you have sex. Use a condom or dental dam every time you have sex. Practicing safer sex is the best way to decrease your risk of getting an STD in the future. When to seek care Please make an appointment to be seen in a clinic or urgent care if any of the following occur: You are unable to complete treatment exactly as directed You have concerns you may have been reinfected by an untreated current partner or an infected new partner Diagnosis: Chlamydia - known exposure Diagnosis ICD: Z20.2 Prescription: azithromycin (Zithromax TRI-HANSEL) 500 mg oral tablet 2 tablet, 1 days supply. Take 2 tablets by mouth 1 time per day for 1 day. Refills: 0, Refill as needed: no, Allow substitutions: yes Pharmacy: [id number] - - [address] [place] [address] Addendum created: October 07 22:54:502019 created by: Trixie Patton body: Chlamydia infection may sometimes be associated with other STD's. Please consider coming into a clinic for complete STD screening documented in this encounter Plan of Treatment Not on filedocumented as of this encounter Visit Diagnoses Not on filedocumented in this encounter Care Teams Exhibits Coordinator Relationship Specialty Start Date End Date Clinic, Bebeto Wallace PCP - General 01/03/17 04/25/21 [address] [place] [address] documented as of this encounter
--- OUTSIDE RECORDS SUMMARY | 2022-01-20 19:46 | XMS_ITS | Encounter Summary ---
:1995 Author Organization [place] Address [address] [facility] [place] [address] Care Team Providers Name Role Phone Clinic, Bebeto Wallace Primary Care Provider [phone] Encounter Details Date Type Department Care Team Description 01/16/2017 Radiant Appointment [facility] TOF (tetralogy of Health Pediatric Fallot) Specialty Clinic [address] [place] [address] Social History Tobacco Use Types [...] Procedure Name Priority Date/Time Associated Diagnosis [facility]me [facility] ECHO PEDIATRIC Routine 01/16/2017 10:24 AM TOF (tetralogy of R esults for this COMPLETE CDT Fallot) procedure are i n the results section. documented in this encounter Results Echo pediatric complete- Future (01/16/2017 10:24 AM CDT) Anatomical Region Laterality Modality Echocardiography Specimen (Source) Anatomical Collection Method Collection Time Re ceived Time Location / / Volume Laterality 01/16/2017 9:58 AM CDT Narrative 01/16/2017 10:24 AM CDT [id number]^SIVANANDAM^MIYA^ ?Study ID: [id number] ?[facility] ? [address], [address] ?[place], [facility] ? Pediatric Echocardiogram __ Name: JUANA SCHNEIDER L Study Date: 01/16/2017 09:58 AM ?Patient Location: [facility] ?Age: 21 yrs : 1995 ?BP: [...] benitez: 59.8 cm/sec ? desc Ao max benietz: 148.7 cm/sec asc Ao max P.4 mmHg ? desc Ao max P.8 mmHg Lat Peak E' Benitez: 11.8 cm/sec ?Med Peak E' Benitez: 10.0 cm/sec MV Close to Open: 0.37 sec [place] 2D Z-SCORE VALUES Measurement Name Value Z-ScorePredictedN ormal Range Ao sinus diam(2D)3.8 cm1.9 ?3.1 ?2.5 - 3.[address] Jx Diam(2D)2.7 cm LVLd apical(4ch) 9.5 cm LVLs apical(4ch) 7.7 cm [place] Z-Scores (Measurements & Calculat ions) Measurement NameValue [...] note might be different from the original. [id number] [facility] [id number]^PABLO^MIYA^ Study ID: [id number] [facility] [address], [place] [address] Pediatric Echocardiogram __ Name: ELSIE SCHNEIDERIsabel Mendoza Study Date: 01/16/2017 09:58 AM Patient Location: [facility] Age: 21 yrs : 1995 BP: 111/76 mmHg Gender: Female Patient Class: Outpatient Height: 169 cm Ordering Provider: MIYA SHAH eight: 102 kg Referring Provider: MIYA SHAH BSA: 2.1 m2 Performed By: Jerry Guerrero, JESSICA Report approved by: Latonya Rosenberg Reason For [...] apical(4ch) 9.5 cm LVLs apical(4ch) 7.7 cm [place] Z-Scores (Measurements & Calculat ions) Measurement NameValue [...] 34.9 28.7 - 42.6 Report approved by: Latonya Rosenberg 01/16/2017 10:24 AM M[facility] CV PEDS ECHO ORDERABLES documented in this encounter Visit Diagnoses Diagnosis 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
--- OUTSIDE RECORDS SUMMARY | 2022-01-20 19:46 | XMS_ITS | Encounter Summary ---
:1995 Author Organization [place] Address [address] [facility] [place] [address] Care Team Providers Name Role Phone Ashwini Bangura PA-C Primary Care Provider [phone] Reason for Visit Reason Comments Well Child well child Encounter Details Date Type Department Care Team Description 12/03/2012 Office Visit [facility] Dylan Bangura or child health check (Primary Dx); [facility] Ashwini Prater PA-C Need for prophylactic vaccination and in oculation against viral hepatitis; [address] [facility] [address] [facility] Need for prophylactic vaccination and in oculation [place] [address] [phone] Social History Tobacco Use Types Packs/Day Years Used Date Smoking Tobacco: Never Comments: not exposed to 2nd hand smoke Alcohol Use Standard Drinks/Week Comments No 0 (1 standard drink = 0.6 oz pure alcoho l) Sex Assigned at Date Recorded Female 10/31/2020 4:31 PM CDT documented as of this encounter Last Filed Vital Signs Vital Sign Reading Time Taken Comments Blood Pressure 118/70 12/03/2012 12:01 PM CDT Pulse 80 12/03/2012 12:01 PM CDT Temperature 36.9 ??C (98.5 ??F) 12/03/2012 12:01 PM CDT Respiratory Rate - - Oxygen Saturation 98% 12/03/2012 12:01 PM CDT Inhaled Oxygen Concentration - - Weight 78 kg (172 lb) 12/03/2012 12:01 PM CDT Height 167.6 cm (5' 6) 12/03/2012 12:01 PM CDT Body Mass Index 27.76 12/03/2012 12:01 PM CDT Body Mass Index Percentile 94.51 % 12/03/2012 12:01 PM C DT Growth Chart: [facility] (Girls, 2-20 Years) documented in this encounter Patient Instructions Patient InstructionsAshwini Bangura PA-C - 12/03/2012 12:38 PM CDT Images from the original note were not included. Home Back SP Well Child Checkup: 14-18 Years During the teen years, it???s important to keep having yearly checkups. Your teen may be embarrassedabout having a checkup. Reassure your teen that the exam is normal and necessary. Also be aware thatthe healthcare provider may ask to talk with your child without you in the exam room. Stay involved in your teen???s life. Make sure your teen knows you???re always there when he or she needs to talk. School and Social Issues Here are some topics you, your teen, and the healthcare provider may want to discuss during this visit: ?? School performance. How is your child doing in school? Is homework finished on time? Does your child stay organized? These are skills you can help with. Keep in mind that a drop in school performance can be a sign of other problems. ?? Friendships. Do you like your child???s friends? Do the friendships seem healthy? Make sure to talk to your teen about who his or her friends are and how they spend time together. Peer pressure can be a problem among teenagers. ?? Life at home. How is your child???s behavior? Does he or she get along with others in the family?Is he or she respectful of you, other adults, and authority? Does your child participate in family events, or does he or she withdraw from other family members? ?? Risky behaviors. Many teenagers are curious about drugs, alcohol, smoking, and sex. Talk openly about these issues. Answer your child???s questions, and don???t be afraid to ask questions of your own. If you???re not sure how to approach these topics, talk to the healthcare provider for advice. Puberty Your teen may still be experiencing some of the changes of puberty, such as: ?? Acne and body odor. Hormones that increase during puberty can cause acne (pimples) on the face and body. Hormones can also increase sweating and cause a stronger body odor. ?? Body changes. The body grows and matures during puberty. Hair will grow in the pubic area and on other parts of the body. Girls grow breasts and menstruate (have monthly periods). A boy???s voice changes, becoming lower and deeper. As the penis matures, erections and wet dreams will start to happen. Talk to your teen about what to expect, and help him or her deal with these changes when possible. ?? Emotional changes. Along with these physical changes, you???ll likely notice changes in your teen???s personality. He or she may develop an interest in dating and becoming ???more than friends?? with other kids. Also, it???s normal for your teen to be griggs. Try to be patient and consistent. Encourage conversations, even when he or she doesn???t seem to want to talk. No matter how your teen acts,he or she still needs a parent. Nutrition and Exercise Tips Your teenager likely makes his or her own decisions about what to eat and how to spend free time. You can???t always have the final say, but you can encourage healthy habits. Your teen should: ?? Get at least 30-60 minutes of activity every day. This time can be broken up throughout the day. After-school sports, dance or martial arts classes, riding a bike, or even walking to school or a friend???s house counts as activity. ?? Limit ???screen time?? to 1-2 hours each day. This includes time spent watching TV, playing video games, using the computer, and texting. If your teen has a TV, computer, or video game console in the bedroom, consider replacing it with a music player. ?? Eat healthy. Your child should eat fruits, vegetables, lean meats, and whole grains every day. Less healthy foods--like dominican fries, candy, and chips--should be eaten rarely. Some teens fall into the trap of snacking on junk food and fast food throughout the day. Make sure the kitchen is stocked with healthy options for after-school snacks. If your teen does choose to eat junk food, consider making him or her buy it with his or her own money. ?? Eat 3 meals a day. A lot of kids skip breakfast and even lunch. Not only is this unhealthy, it can also hurt school performance. Make sure your teen eats breakfast. Prepare a bag lunch to bring to school (or have your child make it). ?? Have at least one family meal with you each day. Busy schedules often limit time for sitting and talking. Sitting and eating together allows for family time. It also lets you see what and how your child eats. ?? Limit soda and juice drinks. A small soda is okay once in a while. But it???s no substitute for healthier drinks. Sports and juice drinks are no better. Most of the time, water and low-fat or nonfatmilk are the best choices. Hygiene Tips ?? Teenagers should bathe or shower daily and use deodorant. ?? Let the healthcare provider know if you or your teen have questions about hygiene or acne. ?? Bring your teen to the dentist at least twice a year for teeth cleaning and a checkup. ?? Remind your teen to brush and floss his or her teeth before bed. Sleeping Tips During the teen years, sleep patterns may change. Many teenagers have a hard time falling asleep, which can lead to sleeping late the next morning. Here are some tips to help your teen get the rest he or she needs: ?? Encourage your teen to keep a consistent bedtime, even on weekends. Sleeping is easier when the body follows a routine. Don???t let your teen stay up too late at night or sleep in too long in the morning. ?? Help your teen wake up, if needed. Go into the bedroom, open the blinds, and get your teen out ofbed--even on weekends or during school vacations. ?? Being active during the day will help your child sleep better at night. ?? Discourage use of the TV, computer, or video games for at least an hour before your teen goes to bed. (This is good advice for parents, too!) ?? Make a rule that cell phones must be turned off at night. Safety Tips ?? Set rules for how your teen can spend time outside of the house. Give your child a nighttime curfew. If your child has a cell phone, check in periodically by calling to ask where he or she is and what he or she is doing. ?? Make sure cell phones and portable music players are used safely and responsibly. Help your teen understand that it is dangerous to talk on the phone, text, or listen to music with headphones while he or she is riding a bike or walking outdoors, especially when crossing the street. ?? Constant loud music can cause hearing damage, so monitor your teen???s music volume. Many music players let you set a limit for how loud the volume can be turned up. Check the directions for details. ?? When your teen is old enough for a highway truck driver???s license, encourage safe driving. Teach your teen toalways wear a seat belt, drive the speed limit, and follow the rules of the road. Do not allow your teenager to text or talk on a cell phone while driving. (And don???t do this yourself! Remember, you set an example.) ?? Set rules and limits around driving and use of the car. If your teen gets a ticket or has an accident, there should be consequences. Driving is a privilege that can be taken away if your child doesn???t follow the rules. ?? Teach your child to make good decisions about drugs, alcohol, sex, and other risky behaviors. Work together to come up with strategies for staying safe and dealing with peer pressure. And make sure your teenager knows he or she can always come to you for help. Tests and Vaccinations If you have a strong family history of high cholesterol, your teen???s blood cholesterol may be tested at this visit. Based on recommendations from the [place] [employer], at this visityour child may receive the following vaccinations: ?? Hepatitis B ?? Meningococcal ?? Tetanus, diphtheria, and pertussis Recognizing Signs of Depression It???s normal for teenagers to have extreme mood swings. This is the result of their changing hormones. It???s also just a part of growing up. But sometimes a teenager???s mood swings are signs of a larger problem. If your teen is always depressed, you should be concerned. Other signs of depression include: ?? Use of drugs or alcohol ?? Problems in school and at home ?? Frequent episodes of running away ?? Thoughts or talk of or suicide ?? Withdrawal from family and friends ?? Sudden changes in eating or sleeping habits ?? Sexual promiscuity or unplanned ?? Hostile behavior or rage ?? Loss of pleasure in life Depressed teens can be helped with treatment. Talk to your child???s healthcare provider. Or check with your local mental health center, social service agency, or hospital. Assure your teen that his orher pain can be eased. Offer your love and support. And if your teen talks about or suicide, seek help right away. Next checkup at: PARENT NOTES: ?? 8590-9938 [facility], [address] [place] [address], [place] [address]. All rights reserved. This information is not intended as a substitute for professional medical care. Always follow your healthcare professional's instructions. documented in this encounter Progress Notes Ashwini Bangura PA-C - 12/03/2012 12:05 PM CDT Malinda Medina is a 17 year old female here for a routine health maintenance visit, accompanied byher mother. QUESTIONS/CONCERNS: None FAMILY/ SOCIAL HISTORY Child lives with: mother Recent family changes/social stressors: none noted Family History: No changes since last physical Language(s) spoken at home: Maldivian MNVFC doesn't apply on this patient ENVIRONMENTAL RISK ASSESSMENT Is your child around anyone who smokes? NO Seat belt? YES Bike/sport helmet? NO (Recommended) TB exposure? NO Pets in the home? YES two dogs 1 cat Guns/firearms in the home? no Water source: city water and FILTERED WATER CHICKEN POX HISTORY: Previously vaccinated with 2 doses of Varivax TEEN RISK SCREEN: Form not used VISION Wears glasses? YES, glasses NOT worn for testing Right eye: 20//50 Left eye: 20/25 Both eyes: 20/25 Question Validity: no HEARING Right Ear: 500 Hz: RESPONSE- on Level: 20 db 1000 Hz: RESPONSE- on Level: 20 db 2000 Hz: RESPONSE- on Level: 20 db 4000 Hz: RESPONSE- on Level: 20 db Left Ear: 500 Hz: RESPONSE- on Level: 20 db 1000 Hz: RESPONSE- on Level: 20 db 2000 Hz: RESPONSE- on Level: 20 db 4000 Hz: RESPONSE- on Level: 20 db Question Validity: no REQUIRED VITAL SIGNS COMPLETED: yes BP 118/70 Pulse 80 Temp 98.5 ??F (36.9 ??C) (Oral) Ht 5' 6 (1.676 m) Wt 172 lb (78.019 kg) BMI 27.76 kg/m2 SpO2 98% 80.9%ile based on [facility] 2-20 Years tzygnma-tsb-bar data. 95.87%ile based on CDC 2-20 Years zhjzhm-sac-zyc data. 94.53%ile based on CDC 2-20 Years BMI-for-age data. No sports physical needed. Staff signature: db HEALTH HISTORY SINCE LAST VISIT No surgery, major illness or injury since last physical exam Cardiac risk assessment: none Immunization History Administered Date(s) Administered ? ? DTAP (<7y) 01/26/1998, 03/23/1998, 05/22/1998, 04/16/1999, 10/10/2002 ??? HIB 01/26/1998, 03/23/1998, 05/22/1998, 04/16/1999 ??? Hepatitis A 11/23/2009 ??? Hepatitis B 1995, 01/26/1998, 08/17/1998 ??? IPV 01/26/1998, 03/23/1998, 10/10/2002 ??? Influenza 04/30/2010 ??? MMR 12/16/1998, 10/10/2002 ??? Meningococcal 11/23/2009 ??? OPV 12/16/1998 ??? Pneumococcal (PCV 7) 02/29/2000, 10/31/2000, 02/27/2001 ??? Rotavirus 3 Dose 03/23/1998, 05/22/1998, 08/17/1998 ??? Tdap (Adacel,Boostrix) 11/23/2009 ??? Varicella 12/16/1998, 11/05/2008 No Known Allergies DAILY ACTIVITIES NUTRITION: picky eater, dairy/ calcium: 2% milk and fruits SLEEP No concerns, sleeps well through night ELIMINATION Normal bowel movements and Normal urination EXERCISE/ RECREATION Organized / Team sports: none Recreational exercise: rides bike (helmet advised) and swimming ACTIVITIES: Age appropriate activities TV/ Media: < 2 hours/ day EDUCATION / EMPLOYMENT Concerns: no School: [employer] Grade:10th MENTAL HEALTH Concerns: no SEXUALITY Dating: no Sexual activity: no SUBSTANCE ABUSE Smoking: no Alcohol: no Drugs: no VISION: For details see above, normal HEARING: For details see above, normal ROS GENERAL: See health history, nutrition and daily activities SKIN: No rash, hives or significant lesions HEENT: Hearing/vision: see above. No eye redness/discharge, nasal congestion, sneezing, snoring RESP: No cough, wheezing, SOB CV: No cyanosis, palpitations, syncope GI: See nutrition and elimination : See elimination MS: No swelling, arthralgia, weakness, gait problem NEURO: No headaches PSYCH: See development and behavior, or mental health EXAM GENERAL: Active, alert, in no acute distress. SKIN: Clear. No significant rash, abnormal pigmentation or lesions HEAD: Normocephalic EYES: Sharp optic discs. Pupils equal, round, reactive, Extraocular muscles intact. Normal conjunctivae. EARS: Normal canals. Tympanic membranes are normal; hess and translucent. NOSE: Normal without discharge. MOUTH/THROAT: Clear. No oral lesions. Teeth without obvious abnormalities. NECK: Supple, no masses. No thyromegaly. LYMPH NODES: No adenopathy LUNGS: Clear. No rales, rhonchi, wheezing or retractions HEART: Regular rhythm. Normal S1/S2. No murmurs. Normal pulses. ABDOMEN: Soft, non-tender, not distended, no masses or hepatosplenomegaly. Bowel sounds normal. NEUROLOGIC: No focal findings. Cranial nerves grossly intact: DTR's normal. Normal gait, strength and tone BACK: Spine is straight, no scoliosis. EXTREMITIES: Full range of motion, no deformities -F: Normal female external genitalia, Lavon stage 3. BREASTS: Lavon stage 3. No abnormalities. SPORTS EXAM: Shoulder: normal Elbow: normal Hand/Wrist: normal Back: normal Quad/Ham: normal Knee: normal Ankle/Feet: normal Heel/Toe: normal Duck walk: normal ANTICIPATORY GUIDANCE The following topics were discussed: SOCIAL/ FAMILY: Peer pressure Increased responsibility Parent/ teen communication Limits/ consequences TV/ media School/ homework Future plans/ College NUTRITION: Healthy food choices Dietary fat Family meals Calcium HEALTH / SAFETY: Adequate sleep/ exercise SEXUALITY: ASSESSMENT 1. Well teen with normal growth and development PLAN 94.53%ile based on CDC 2-20 Years BMI-for-age data. OBESITY ACTION PLAN ?? Nutrition Counseling Performed 5210 ?? 5. 5 servings of fruits or vegetables per day ?? 2. Less than 2 hours of television per day ?? 1. At least 1 hour of active play per day ?? 0. 0 sugary drinks (juice, pop, punch, sports drinks) Immunizations Reviewed, up to date See other orders in [facility] Referrals/Ongoing Specialty care: No Dental visit recommended: Yes RTC: 3 year [facility] visit documented in this encounter Nursing Notes 12/03/2012 11:40 AM CDT >> CLAUDIA MOREJON Mon Dec 03, 2012 12:06 PM Patient presents with: Well Child - well child Initial BP 118/70 Pulse 80 Temp 98.5 ??F (36.9 ??C) (Oral) Ht 5' 6 (1.676 m) Wt 172 lb (78.019 kg) BMI 27.76 kg/m2 SpO2 98% Estimated Body mass index is 27.76 kg/(m^2) as calculated from the following: Height as of this encounter: 5' 6(1.676 m). Weight as of this encounter: 172 lb(78.019 kg). BP completed using cuff size: regular Claudia Morejon FAMILY RESOURCE MANAGEMENT SPECIALIST documented in this encounter Plan of Treatment Not on filedocumented as of this encounter Visit Diagnoses Diagnosis Routine or child health check - P rimary Need for prophylactic vaccination and in oculation against viral hepatitis Need for prophylactic vaccination and in oculation against other viral diseases(V04.89) Need for prophylactic vaccination and in oculation against other viral diseases documented in this encounter Care Teams Refractory Mixer Relationship Specialty Start Date End Date Mayela-Ashwini Banda PA-C PCP - General Family Practice 11/26/12 08/29/13 [address] [place] [address] documented as of this encounter
--- OUTSIDE RECORDS SUMMARY | 2022-01-20 19:46 | XMS_ITS | Encounter Summary ---
:1995 Author Organization [place] Address [address] [place] [address]. [place] [address] Care Team Providers Name Role Phone Gigi, Bebeto Herndon Primary Care Provider [phone] Encounter Details Date Type Department Care Team Description 05/19/2014 Radiant Appointment Pediatric Specialty C ongenital anomaly of [facility] heart tetrology repair [facility] [address] [place] [address] Social History Tobacco Use Types Packs/Day Years [...] Associated Diagnosis Comme nts ECHO PEDIATRIC Routine 05/19/2014 3:49 PM Congenital anomaly R esults for this COMPLETE FITNESS AND WELLNESS INSTRUCTOR of heart tetrology procedure are in repair the results section. documented in this encounter Results Echo pediatric complete- Future (05/19/2014 3:49 PM FITNESS AND WELLNESS INSTRUCTOR) Anatomical Region Laterality Modality Echocardiography Specimen (Source) Anatomical Location Collection Method / Collectio n Time Received Time / Laterality Volume Narrative 05/21/2014 7:39 AM FITNESS AND WELLNESS INSTRUCTOR PEDIATRIC ECHOCARDIOGRAM [facility] [address], [address] [place] [address] ? Fa x: [phone] [facility]? s [facility] ? Age: ??89 Wt ??83 kg ??Ht: ??167 cm ??BSA: ?? 1.9 m2 ??BP: [employer] ?? Solar Sales Manager: ?? [facility] INDICATION: ??Tetralogy A cardiac ultrasound study based [...] ??The re is no evidence of a vxao-yx-hxysf shunt at atrial, ventricul ar or great artery levels. 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
--- OUTSIDE RECORDS SUMMARY | 2022-01-20 19:46 | XMS_ITS | Encounter Summary ---
:1995 Author Organization [facility] Address [address] [place] [address]. [place] [address] Care Team Providers Name Role Phone Clinic, Bebeto Wallace Primary Care Provider [phone] Reason for Visit Reason Onset Date Comments Symptoms 01/05/2017 Migraine, palpitatio ns / elevated HR, fever of 103F Encounter Details Date Type Department Care Team Description 01/05/2017 Telephone [facility] Mima Osborn ( Migraine, [facility] Pediatric MIREILLE Chavez palpitati ons / elevated Specialty Clinic HR, fever of 103F) [facility] [address] [place] [phone] Social History Tobacco Use Types Packs/Day Years Used Date Smoking Tobacco: Never Smokeless Tobacco: Never Comments: Mom smokes outside home Alcohol Use Standard Drinks/Week Comments No 0 (1 standard drink = 0.6 oz pure alcoho l) Sex Assigned at Date Recorded Female 10/31/2020 4:31 PM CDT documented as of this encounter Miscellaneous Notes Telephone Encounter - Kathy Osborn RN - 01/05/2017 11:01 AM CDT Malinda was contacted today to discuss symptoms and plan for follow-up with Pediatric Cardiology. Malinda states that she has not felt well since her visit to the ED on 01/03. She continues to have elevated heart rates (highest of 114 bpm). Currently she reports a heart rate in the 80s but mentioned that her heart rate goes up in the evening / nighttime which is unusual for her. She is experiencing a migraine today, as well as the elevated heart rate she reported. I asked Malinda if she feels likeher symptoms are something she would like to be seen for sooner in cardiology than her currently scheduled appointment on January 16. Malinda states she doesn't know and requested that I call her [facility] at [phone]. I repeated my question to her, asking her to consider the level of severity of her current symptoms, but she continued to decline to answer and asked again that I call her mom to talk about it. I reminded Malinda of her appointment tomorrow (01/06) to have her Holter monitor placedand she confirmed understanding. A second call was placed to Malinda's mother per the patient's request to discuss follow-up plans. Malinda's mother reports that her daughter has had a migraine for these past three days and when shetook Malinda's temperature yesterday, it was 103 degrees F. Her mother had a number of questions regarding heart rate and things that could cause the heart rate to increase. I explained to her that there are many factors that affect heart rate, including fever / illness, pain, emotional stress and activity level. Malinda's fever and migraine headache could very easily explain her elevated heart rates, and Malinda's mom was provided reassurance that a heart rate of 80s-120s would be a normal finding in adults, particularly associated with active illness. Of note, [place] heart rate during her emergency room encounter was in the 90s and, on EKG, was sinus. There was no concern at that time that her elevated heart rate was a primary arrhythmia, though she will complete a Holter monitor to screen for potential arrhythmia. I encouraged Malinda's mother to get a primary care appointment to address her acute illness and migraines. Malinda's mom was offered an earlier appointment in Pediatric Cardiology for this coming Monday (01/09), but I did stress that we would not be able to have an echo performed with that appointment, and would prefer that patients with symptoms of infectious illness avoid coming to clinic and potentially exposing other cardiology patients who are highly vulnerable to illness. Malinda's mother agreed with the recommendation and felt that the appointment on 01/16 wouldbe adequate. She will take Malinda for her Holter monitor placement tomorrow and will consider taking Malinda to primary care. She was provided the cardiology on-call number if she should have concerns over the weekend or after hours, and I recommended that Malinda or her mother call us back on Monday to check in regarding Malinda's state of health and follow-up plan. All questions were answered and Malinda's mother had no other concerns at this time. documented in this encounter Plan of Treatment Not on filedocumented as of this encounter Visit Diagnoses Not on filedocumented in this encounter Care Teams Business Development Sales Executive Relationship Specialty Start Date End Date [facility], [facility] PCP - General 01/03/17 04/25/21 [address] [place] [address] documented as of this encounter
--- OUTSIDE RECORDS SUMMARY | 2022-01-20 19:46 | XMS_ITS | Encounter Summary ---
:1995 Author Organization [facility] Address [facility] [place] [address] Care Team Providers Name Role Phone Unavailable Primary Care Provider Unavailable Encounter Details Date Type Department Care Team Description 07/30/2008 Office Visit-[facility] INTERFACE [facility] DEPT Provider, [facility] Nurs e Social History Tobacco Use Types Packs/Day Years Used Date Smoking Tobacco: Never Assessed Sex Assigned at Date Recorded Female 10/31/2020 4:31 PM CDT documented as of this encounter Progress Notes Provider, [facility] Nurse - 07/30/2008 3:30 PM CDT Seat Covers Trimmer: Luz Bain Status: Final Encounter: 30 Jul 2008 Type: Rooming Note Informant Parent is informant unless otherwise noted. Reason For Visit TOF Repair Follow-up. Pain Eval Current history of pain associated with this visit is denied. Personal Hx Behavioral history: No tobacco use. Home environment: Secondhand tobacco smoke in home. Vital Signs Position for height measurement: standing Blood pressure taken with: electronic BP machine. Recorded by Luz Bain on 30 Jul 2008 03:56 PM BP:116/73, RUE, Sitting, HR: 93 b/min, Height: 152.4 cm, Weight: 58.2 kg, BMI: 25.1 kg/m2, Pain Scale: 0. Immunizations Immunizations are reported as current. Allergies No Known Drug Allergy. Current Meds Amoxicillin 400 MG/5ML Suspension Reconstituted;TAKE 25 ML DIRECTED (2000 mg) Take one hour priorto dental procedure; Rx [facility]-MED RECONCILE;per parent; RPT. Teaching Teaching not applicable. Signature Electronically Signed By: Luz Bain FABRIC WORKER SUPERVISOR; 07/30/2008 4:13 PM PLATE GRINDER. documented in this encounter Plan of Treatment Not on filedocumented as of this encounter Visit Diagnoses Not on filedocumented in this encounter
--- OUTSIDE RECORDS SUMMARY | 2022-01-20 19:46 | XMS_ITS | Encounter Summary ---
:1995 Author Organization [place] [facility] Address formerly [facility] [place] [address] Care Team Providers Name Role Phone Clinic, Beb[facility] Herndon Primary Care Provider [phone] Reason for Visit Reason Comments Heart Problem Follow-up on TOF Repair. Encounter Details Date Type Department Care Team Description 05/19/2014 Office Visit Pediatric Specialty Mimi Son C ongenital anomaly of [facility], [facility] heart tetrology [facility] [address] [facility] rep[address] ir (Primary Dx) [facility] [place], [place] [address] [address] [place], [place] [phone] (Wo rk) [address] [phone] Social History Tobacco Use Types Packs/Day Years [...] Sign Reading Time Taken Comments Blood Pressure 109/73 05/19/2014 3:02 PM INTERIOR DECORATOR PAPERHANGING Pulse 79 05/19/2014 3:02 PM INTERIOR DECORATOR PAPERHANGING Temperature - - Respiratory Rate - - Oxygen Saturation - - Inhaled Oxygen Concentration - - Weight 83 kg (182 lb 15.7 oz) 05/19/2014 3:02 PM INTERIOR DECORATOR PAPERHANGING Height 166.6 cm (5' 5.59) 05/19/2014 3:02 PM INTERIOR DECORATOR PAPERHANGING Body Mass Index 29.9 05/19/2014 3:02 PM INTERIOR DECORATOR PAPERHANGING Body Mass Index Percentile 95.65 % 05/19/2014 3:02 PM CS T Growth Chart: CDC (Girls, 2-20 Years) documented in this encounter Progress Notes Jaqui Nelson MD - 05/19/2014 3:21 PM CST [facility] Clinic Note Assessment and Plan: Malinda is 18 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 Currently doing well. Cardiovascular status is stable. PLAN: F/U in 2 years with Echo. Need a Cardiac MRI in future. No [...] Provider Clinic, Swetha Herndon to consult regarding cardiac issues. 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 Malinda has done very well before and after that surgery.Malinda denies any shortness of breath, syncope, palpitations, cyanosis or edema. There is no cough or wheeze and other cardiovascular and respiratory systems reviews are all negative. There are no new developments in the past medical, family or social history. She runs on a Treadmill for 30 minutes without any symptoms. She has good appetite, sleeps well. I talked to her about healthy eating and staying active. Past Medical History: No Recent Hospitalizations No Recent Operations Family and Social History: No history of congenital heart disease Non-contributory Review of Systems: A comprehensive Review of Systems was performed is negative other than noted in the HPI Medications: I have reviewed this patient's current medications Current Outpatient Prescriptions Medication ??? Multiple Vitamins-Minerals (MULTIVITAMIN GUMMIES ADULT) CHEW ??? amoxicillin (AMOXIL) 400 MG/5ML suspension ??? antipyrine-benzocaine (AURODEX) 54-14 MG/ML SOLN No current facility-administered medications for this visit. Physical Exam: Blood pressure 109/73, pulse 79, height 5' 5.59 (166.6 cm), weight 182 lb 15.7 oz (83 kg), not currently . General - NAD, awake, alert HEENT - NC/AT EOMI Cardiac - RRR nl S1 and S2 Tillman, systolic murmur grade 2/6 LSB, diastolic murmur garde 1/6. No click, thrill or heave Respiratory - Lungs clear Abdominal - Liver at RCM Extremity Nl pulses in brachial and femoral areas, No Clubbing, Edema, Cyanosis Skin - No rash Neuro - Nl gait, posture, tone Labs EKG results: EKG with today's visit V-rate 69/min, sinus, LA 150 msec, QTC 441 msec. Right bundle branch block. Echocardiography today: Results: S/P TOF repair, RV volume is 94 cc/m2, RVEF 62%. Right heart pressure are normal. No shunts. 11 mm Hg peak gradient across the RVOT. Sincerely, Jaqui Nelson MD Pediatric Cardiology CC: Copy to patient Emma Leary [address] [facility] [id number] RIOR DECORATOR PAPERHANGING documented in this encounter Nursing Notes Luz Butler CMA - 05/19/2014 3:05 PM CST Chief Complaint Patient presents with ??? Heart Problem Follow-up on TOF Repair. Initial BP 109/73 Pulse 79 Ht 5' 5.59 (166.6 cm) Wt 182 lb 15.7 oz (83 kg) BMI 29.90 kg/m2 Estimated body mass index is 29.9 kg/(m^2) as calculated from the following: Height as of this encounter: 5' 5.59 (166.6 cm). Weight as of this encounter: 182 lb 15.7 oz (83 kg). BP completed using cuff size: large around Right Arm. RIOR DECORATOR PAPERHANGING documented in this encounter Plan of Treatment Not on filedocumented as of this encounter Procedures Procedure Name Priority Date/Time Associated Diagnosis Comme nts EKG 12-LEAD COMPLETE W/READ Routine 05/19/2014 Congenital an omaly of heart - CLINICS tetrology repair documented in this encounter Results EKG 12-lead complete w/read - Same Day (05/19/2014) Narrative This result has an attachment that is no t available. 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
--- OUTSIDE RECORDS SUMMARY | 2022-01-20 19:46 | XMS_ITS | Encounter Summary ---
:1997 Author Organization [facility] Address [address] [place] [address]. [place] [address] Care Team Providers Name Role Phone Clinic, [facility] Primary Care Provider [phone] Mimi Son Unavailable Clinic, [facility] Primary Care Provider [phone] System, Provider Not In Primary Care Provider Unavailable [facility], [facility] Primary Care Provider Encounter Details Date Type Department Care Team Description 02/28/2020 Telephone [facility] Explorer Mimi Muñoz MBBS Pediatric Specialty Clinic [address] [place] [address] [facility] [address] [place] [address] [facility] [place] [phone] Social History Tobacco Use Types Packs/Day Years [...] with No / Unsure 02/29/2020 12:14 PM CHILD CARE NURSE someone who was confirmed or suspected to have Coronavirus / COVID-19? documented as of this encounter Miscellaneous Notes Telephone Encounter - June Ch RN - 03/02/2020 11:38 AM CST Sent message to provider. Waiting for response D CARE NURSE Telephone Encounter - Stefania Estes - 02/28/2020 2:01 PM CST [facility] Call Center Phone Message May a detailed message be left on voicemail: yes Reason for Call: Symptoms or Concerns If patient has red-flag symptoms, warm transfer to triage line Current symptom or concern: Malinda is calling to talk with provider or nurse, she has not been seen in over 3 years but is wondering if Dr Le can answer her questions. Please follow up with her when available. She is having same issues from a couple years ago, was seen in urgent care today for chest pain, like a tightness, shortness of breath, like someone is squeezing her heart, one of her wires that is holding her ribcage together is broken which she saw from the imaging that was done. She is wondering what she should do? Action Taken: Other: Cardiology Travel Screening: Not Applicable D CARE NURSE documented in this encounter Plan of Treatment Not on filedocumented as of this encounter Visit Diagnoses Not on filedocumented in this encounter Care Teams Process Eng Relationship Specialty Start Date End Date [facility] PCP - General 01/03/17 04/25/21 [address] [place] [phone] [facility] [place] PCP - General 04/26/[address] [place] [address] [place] [address] [address] [place] [address] System, Provider Not In PCP - General Clinic 01/13/22 01/13/22 [facility] PCP - General 01/14/22 [place] [address] [place] [phone] Mimi Son MBBS Assigned Pediatric Specialist 03/22/20 [address] [facility] [id number] [place] [address] documented as of this encounter
--- OUTSIDE RECORDS SUMMARY | 2022-01-20 19:46 | XMS_ITS | Encounter Summary ---
:1995 Author Organization [facility] Address [address] [place] [address] Care Team Providers Name Role Phone Clinic, Bebeto [place] Primary Care Provider [phone] Reason for Visit Reason Comments Chest Pain Encounter Details Date Type Department Care Team Description 02/29/[address] [facility] Carmen Guzman MD Chest pain, unspecified type; [facility] Emergency Dep t EMERGENCY PHYSICIANS Tetralogy of Fallot [address] [place], [place] [address] [facility] [address] [facility] [phone] [place] [address] (Wo rk) Social History Tobacco Use Types [...] with No / Unsure 02/29/2020 12:14 PM EVAPORATOR REPAIRER someone who was confirmed or suspected to have Coronavirus / COVID-19? documented as of this encounter Last Filed Vital Signs Vital Sign Reading Time Taken Comments Blood Pressure 104/76 02/29/2020 4:45 PM EVAPORATOR REPAIRER Pulse 73 02/29/2020 3:08 PM EVAPORATOR REPAIRER Temperature 36.9 ??C (98.5 ??F) 02/29/2020 1:56 PM EVAPORATOR REPAIRER Respiratory Rate 16 02/29/2020 4:45 PM EVAPORATOR REPAIRER Oxygen Saturation 100% 02/29/2020 4:45 PM EVAPORATOR REPAIRER Inhaled Oxygen Concentration - - Weight 86.6 kg (190 lb 14.7 oz) 02/29/2020 1:56 PM EVAPORATOR REPAIRER Height - - Body Mass Index 30.32 01/16/2017 9:45 AM CDT documented in this encounter Discharge Instructions Discharge InstructionsAlcon Guzman MD - 02/29/2020 4:44 PM CST Call [phone] to arrange outpatient follow up with [facility] pediatric cardiology ORATOR REPAIRER AttachmentsThe following attachments cannot be sent through Care Everywhere. Chest Pain, Uncertain Cause (Bermudian)Chest Pain, Noncardiac (Bermudian)documented in this encounter ED Notes Jenane Conti, MIREILLE - 02/29/2020 4:10 PM CST Pt given box lunch. Ok by MD. ORATOR REPAIRER Raman Hebert RN - 02/29/2020 12:23 PM CST Seen at urgent care yesterday and had labs drawn. Chest and heart pressure today, reports hypertension at home. Hx TOF repair at 10 months. VSS on RA, A&O x 4. ORATOR REPAIRER Alcon Guzman MD - 02/29/2020 12:14 PM CST History Chief Complaint: Chest Pain The history is provided by the patient. 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 The patient describes having chest pain that started yesterday at 0400 and feels as if someone is squeezing her heart really hard. She states that the pain has been episodic, varying from a 2/10 to a 7/10. She went to urgent care at the suggesting of her uncle who is a project manager senior and they got an Chest X-ray and EKG which were both normal, see x- ray below. suggested thatthe patient be seen in the ED if her symptoms become worse. Here in the ED, she also reports associated dizziness as well as difficulty breathing that she attributes to the increased pressure on her chest. She states that her last appointment with Cardiology was 2 years ago. Chest X-ray Urgent Care visit 02/28/2020 XR Chest 2 views PA and Lateral 1. No acute cardiopulmonary findings.?? 2. Fracture of the inferior most sternotomy wire.?? Allergies: No known drug allergies Medications: The patient is not currently taking any prescribed medications. 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 No pertinent family history. Social History: Smoking status: Never Alcohol use: No Drug use: No Patient presents by herself. PCP: Bebeto Yu Marital Status: Single [1] Review of Systems Respiratory: Positive for chest tightness and shortness of breath. Cardiovascular: Positive for chest pain. Neurological: Positive for dizziness. All other systems reviewed and are negative. Physical Exam Patient Vitals for the past 24 hrs: BP Temp Temp src Pulse Resp SpO2 Weight 02/29/20 1600 -- -- -- -- -- 99 % -- 02/29/20 1545 -- -- -- -- -- 97 % -- 02/29/20 1530 -- -- -- -- -- 100 % -- 02/29/20 1515 -- -- -- -- -- 100 % -- 02/29/20 1508 100/67 -- -- 73 16 100 % -- 02/29/20 1356 -- 98.5 ??F (36.9 ??C) Oral -- -- -- 86.6 kg (190 lb 14.7 oz) 02/29/20 1345 125/83 -- -- 67 16 96 % -- Physical Exam General: Patient is alert and cooperative. Well appearing. HENT: Normal nose, oropharynx. Moist oral mucosa. Eyes: EOMI. Normal conjunctiva. Neck: Normal range of motion and appearance. Cardiovascular: Normal rate, regular rhythm, systolic murmur. Pulmonary/Chest: Effort normal. No wheezing or crackles. Abdominal: Soft. No distension or tenderness. Musculoskeletal: Normal range of motion. No edema or tenderness. Neurological: oriented, normal strength, sensation, and coordination. Skin: Warm and dry. No rash or bruising. Psychiatric: Normal mood and affect. Normal behavior and judgement. Emergency Department Course ECG (12:31:25): Rate 66 bpm. OH interval 150. QRS duration 130. QT/QTc 416/436. P-R-T axes -2 22 25. Sinus rhythm with marked sinus arrhythmia. Right bundle branch block. Abnormal EKG. Interpreted at 1400 by Alcon Guzman MD. Laboratory: Laboratory findings were communicated with the patient who voiced understanding of the findings. CBC: WBC 8.1, HGB 13.3, PLT 248 BMP: WNL (Creatinine 0.77) Troponin I (collected 1354): <0.015 D dimer: <0.3 ESR: 9 CRP: < 2.9 Emergency Department Course: Past medical records, nursing notes, and vitals reviewed. 1318: I performed an exam of the patient and obtained history, as documented above. Blood drawn. This was sent to the lab for further testing, results above. EKG performed, results above. 1346: I spoke with Cardiology Dr. Marte regarding the patient. 1520: I spoke with Peds Cardiology Dr. Ayoub regarding the patient. 1644: Findings and plan explained to the Patient. Patient discharged home with instructions regarding supportive care, medications, and reasons to return. The importance of close follow-up was reviewed. I personally reviewed the laboratory results with the Patient and answered all related questions prior to discharge. Impression & Plan Medical Decision Making: Afebrile and hemodynamically stable 24-year-old female with complaints of a 2- day history now of fairly constant left-sided chest discomfort. This is described by her as a tightness or squeezing discomfort with waxing and waning intensity. Past medical history noteworthy for Tetralogy of Fallot repairat 10 months of age with no subsequent problems. She sees pediatric cardiology at the [facility]. She was seen at an outside urgent care yesterday where work-up included an EKG depicting aright bundle branch block and a normal chest x-ray. She is well-appearing on arrival here. Exam reveals a holosystolic murmur with normal lung sounds. Evaluation has been fairly exhaustive and unremarka ble. Chest x-ray is deferred. EKG shows a right bundle branch block with no ischemic appearing ST changes. Labs are unremarkable. She has a normal CBC, undetectable troponin, negative D-dimer, negativeESR and CRP. I did touch base initially with our on-call project manager senior who recommended standard work-up as described. Subsequently I did speak with pediatric drier unloader at the [facility] who did confer with staff. Etiology for chest discomfort is undetermined but felt unlikely to beprimary cardiac. Certainly no concern for an ischemic process, pulmonary embolism, or infection. Emergency echocardiogram felt to be unnecessary at this time. Patient was advised to contact her pediatric cardiology at the [facility] to arrange early outpatient follow-up. If symptoms worsen, she is advisedto proceed to the [facility] where peds cardiology could be involved and direct further evaluation as indicated. Diagnosis: ICD-10-CM 1. Chest pain, unspecified type R07.9 2. Tetralogy of Fallot Q21.3 Disposition: Discharged to home. Scribe Disclosure: IDavid, am serving as a scribe at 1:31 PM on 02/29/2020 to document services personally performed by Alcon Guzman MD based on my observations and the provider's statements to me. David Alonso 02/29/2020 [facility] EMERGENCY DEPT Alcon Guzman MD 03/01/20 1001 ORATOR REPAIRER documented in this encounter Plan of Treatment Not on filedocumented as of this encounter Procedures Procedure Name Priority Date/Time Associated Comments Diagnosis CBC WITH PLATELETS & STAT 02/29/2020 1:54 PM R esults for this DIFFERENTIAL EVAPORATOR REPAIRER procedure are i n the results section. TROPONIN I STAT 02/29/2020 1:54 PM Results f or this EVAPORATOR REPAIRER procedure are i n the results section. ERYTHROCYTE Routine 02/29/2020 1:54 PM Results f or this SEDIMENTATION RATE EVAPORATOR REPAIRER procedure are in AUTO the results section. D DIMER QUANTITATIVE Routine 02/29/2020 1:54 PM R esults for this EVAPORATOR REPAIRER procedure are i n the results section. CRP INFLAMMATION Routine 02/29/2020 1:54 PM Resul ts for this EVAPORATOR REPAIRER procedure are i n the results section. BASIC METABOLIC PANEL STAT 02/29/2020 1:54 PM Results for this EVAPORATOR REPAIRER procedure are i n the results section. EKG 12-LEAD, TRACING STAT 02/29/2020 12:31 Res ults for this ONLY PM EVAPORATOR REPAIRER procedure are i n the results section. documented in this encounter Results Erythrocyte sedimentation rate auto (02/29/2020 1:54 PM EVAPORATOR REPAIRER) athologist [facility] Sed Rate 9 0 - 20 mm/h 02/29/2020 [facility] 2:18 PM EVAPORATOR REPAIRER HOSPITAL Specimen Anatomical Collection Method Collection Time Receive d Time (Source) Location / / Volume Laterality 02/29/2020 1:54 PM 0 2:03 EVAPORATOR REPAIRER PM EVAPORATOR REPAIRER Alcon Guzman MD LAB - BLOOD ORDERABLES Performing Organization Address City/[facility] Phon e Number M [facility] [address] [address] [facility] [address] [address] 7, [facility] [phone] D dimer quantitative (02/29/2020 1:54 PM EVAPORATOR REPAIRER) athologist [facility] D Dimer <0.3 0.0 - 0.50 02/29/2020 [facility] ug/ml FEU 2:17 PM [facility]ATOR REPAIRER [facility]OSPITAL Comment: This D-dimer assay is intended for use i n conjunction with a clinical pretest probability assessment model to exclude pulmonary embolism (PE) and deep venous thrombosis (DVT) in outpatients s uspected of PE or DVT. The cut-off value is 0.5 ug/mL FEU. Specimen Anatomical Collection Method Collection Time Receive d Time (Source) Location / / Volume Laterality 02/29/2020 1:54 PM 0 2:03 EVAPORATOR REPAIRER PM EVAPORATOR REPAIRER Alcon Guzman MD LAB - BLOOD ORDERABLES Performing Organization Address City/[facility]/ZIP [facility] Phon e Number M [facility] [address] [address] [facility] [address] [address] 7, [facility] [phone] CRP inflammation (02/29/2020 1:54 PM EVAPORATOR REPAIRER) athologist Signature CRP Inflammation <2.9 0.0 - 8.0 02/29/2020 [place] mg/L 2:23 PM [facility] Specimen Anatomical Collection Method Collection Time Receive d Time (Source) Location / / Volume Laterality 02/29/2020 1:54 PM 0 2:03 EVAPORATOR REPAIRER PM EVAPORATOR REPAIRER Alcon Guzman MD LAB - BLOOD ORDERABLES Performing Organization Address City/[facility]/ZIP [facility] Phon e Number M [facility] [address] [place] [address] [phone] [facility] [address] [place] [address], [facility] [phone] Troponin I (02/29/2020 1:54 PM EVAPORATOR REPAIRER) athologist [facility] Troponin I ES <0.015 0.000 - 02/29/2020 [place] 0.045 ug/L 2:27 PM [facility] Comment: The 99th percentile for upper reference range is 0.045 ug/L. ??Troponin values in the range of 0.045 - 0.120 ug/L may b e associated with risks of adverse clinical events. Specimen Anatomical Collection Method Collection Time Receive d Time (Source) Location / / Volume Laterality Blood specimen 02/29/2020 1:54 PM 020 2:03 (specimen) EVAPORATOR REPAIRER PM EVAPORATOR REPAIRER Alcon Guzman MD LAB - BLOOD ORDERABLES Performing Organization Address City/State/ZIP [facility] Phon e Number [facility] [address] [place], [place] [address] [facility] [address] [place], [place] [address] [address] [phone] Basic metabolic panel (02/29/2020 1:54 PM EVAPORATOR REPAIRER) athologist [facility] Sodium 139 133 - 144 02/29/2020 [place] mmol/L 2:17 PM [facility] Potassium 3.6 3.4 - 5.3 02/29/2020 [place] mmol/L 2:17 PM [facility] Chloride 105 94 - 109 02/29/2020 [place] mmol/L 2:17 PM [facility] Carbon Dioxide 30 20 - 32 02/29/2020 [place] mmol/L 2:23 PM [facility] Anion Gap 4 3 - 14 02/29/2020 [place] mmol/L 2:23 PM [facility] Glucose 92 70 - 99 02/29/2020 [place] mg/dL 2:23 PM [facility] Urea Nitrogen 14 7 - 30 02/29/2020 [place] mg/dL 2:23 PM [facility] Creatinine 0.77 0.52 - 02/29/2020 [place] 1.04 mg/dL 2:23 PM [facility] GFR Estimate >90 >60 02/29/2020 [place] mL/min/{1. 2:23 PM [facility] 73_m2} HOSPITAL Comment: Non GFR Calc Starting 03/27/2018, serum creatinine ba sed estimated GFR (eGFR) will be calculated using the Chronic Kidney Dise [facility] Epidemiology Collaboration (CKD-EPI) equation. GFR Estimate If >90 >60 mL/min/{1.73_m2} 02/29/2020 2: 23 PM [facility] Comment: GFR Calc Starting 03/27/2018, serum creatinine ba sed estimated GFR (eGFR) will be calculated using the Chronic Kidney Dise [facility] Epidemiology Collaboration (CKD-EPI) equation. Calcium 9.0 8.5 - 10.1 mg/dL 02/29/2020 2:23 PM [facility] Specimen Anatomical Collection Method Collection Time Receive d Time (Source) Location / / Volume Laterality Blood specimen 02/29/2020 1:54 PM 020 2:03 (specimen) EVAPORATOR REPAIRER PM [facility] Alcon Guzman MD LAB - BLOOD ORDERABLES Performing Organization Address City/State/ZIP Code Phon e Number M [facility] [address] [address] [facility] [address] [place], [place] [address], [facility] [phone] [place] [id number] [address], [facility] CBC with platelets differential (02/29/2020 1:54 PM [facility]) [facility] Method Time Signature WBC 8.1 4.0 - 02/29/2020 [facility] 11.0 2:06 PM [facility] 10e9/L [facility] RBC Count 4.41 3.8 - 5.2 02/29/2020 [facility] 10e12/L 2:06 PM [facility] Hemoglobin 13.3 11.7 - 02/29/2020 [facility] 15.7 g/dL 2:06 PM [facility] Hematocrit 40.8 35.0 - 02/29/2020 [facility] 47.0 % 2:06 PM [facility] MCV 93 78 - 100 02/29/2020 [facility] fl 2:06 PM [facility] MCH 30.2 26.5 - 02/29/2020 [facility] 33.0 pg 2:06 PM [facility] MCHC 32.6 31.5 - 02/29/2020 [facility] 36.5 g/dL 2:06 PM [facility] RDW 12.1 10.0 - 02/29/2020 [facility] 15.0 % 2:06 PM [facility] Platelet Count 248 150 - 450 02/29/2020 [facility] 10e9/L 2:06 PM [facility] Diff Method Automated 02/29/2020 [facility] Method 2:06 PM [facility] % Neutrophils 57.7 % 02/29/2020 [facility] 2:06 PM [facility] % Lymphocytes 33.9 % 02/29/2020 [facility] 2:06 PM [facility] % Monocytes 6.6 % 02/29/2020 [facility] 2:06 PM [facility] % Eosinophils 1.2 % 02/29/2020 [facility] 2:06 PM [facility] % Basophils 0.4 % 02/29/2020 [facility] 2:06 PM [facility] % Immature 0.2 % 02/29/2020 [facility] Granulocytes 2:06 PM [facility] Nucleated RBCs 0 0 /100 02/29/2020 [facility] 2:06 PM [facility] Absolute 4.6 1.6 - 8.3 02/29/2020 [facility] Neutrophil 10e9/L 2:06 PM [facility] Absolute 2.7 0.8 - 5.3 02/29/2020 [facility] Lymphocytes 10e9/L 2:06 PM [facility] Absolute 0.5 0.0 - 1.3 02/29/2020 [facility] Monocytes 10e9/L 2:06 PM [facility] Absolute 0.1 0.0 - 0.7 02/29/2020 [facility] Eosinophils 10e9/L 2:06 PM [facility] Absolute 0.0 0.0 - 0.2 02/29/2020 [place] Basophils 10e9/L 2:06 PM [facility] Abs Immature 0.0 0 - 0.4 02/29/2020 [facility] Granulocytes 10e9/L 2:06 PM [facility] Absolute 0.0 02/29/2020 [place] Nucleated RBC 2:06 PM [facility] Specimen Anatomical Collection Method Collection Time Receive d Time (Source) Location / / Volume Laterality Blood specimen 02/29/2020 1:54 PM 020 2:03 (specimen) EVAPORATOR REPAIRER PM EVAPORATOR REPAIRER Alcon Guzman MD LAB - BLOOD ORDERABLES Performing Organization Address City/State/ZIP Code Phon e Number [place] [address] [address] [facility] [address] [phone] EKG 12 lead (02/29/2020 12:31 PM EVAPORATOR REPAIRER) [facility] gist Method Time Signature Interpretation ECG Click View RADIOLOGY Image link RESULTS to view waveform and result Specimen (Source) Anatomical Collection Method Collection Time Re ceived Time Location / / Volume Laterality 02/29/2020 12:31 PM EVAPORATOR REPAIRER Julissa Owen MD ECG ORDERABLES Performing Organization Address City/State/ZIP [facility] Phon e Number RADIOLOGY RESULTS documented in this encounter Visit Diagnoses Diagnosis Chest pain, unspecified type Tetralogy of Fallot documented in this encounter Administered Medications Inactive Administered Medications - up to 3 most recent administrations Medication Order MAR Action Action Date Dose Rate Site ketorolac (TORADOL) injection 15 mg Given 02/29/2020 4:10 PM EVAPORATOR REPAIRER 15 mg 15 mg, Intravenous, ONCE, On 02/29/20 at 1550, For 1 dose, Can cause pain on injection. If ordered intravenously (IV) : administer through a running maintenance fluid over 1 minute followed by a flush. If patient complains of pain on injection, may dilute 15-30 mg in 5 mL and push over 1 to 2 minutes. documented in this encounter Active and Recently Administered Medications Times are shown in EVAPORATOR REPAIRER. Scheduled Medication Order 02/27/2020 02/28/2020 02/29/2020 ketorolac (TORADOL) injection 15 mg (COMPLETED) 1610 (Given - Provider: Jeanne Conti RN) 15 mg, Intravenous, ONCE, 02/29/20 a t 1550, For 1 dose, Can cause pain on injection. If ordered intravenously (IV) : administer through a running maintenance fluid over 1 minute followed by a flush. If patient complains of pain on injecti on, may dilute 15-30 mg in 5 mL and push over 1 to 2 minutes. documented in this encounter Care Teams System Administrator Relationship Specialty Start Date End Date Gigi, Bebeto Wallace PCP - General 01/03/17 04/25/21 [address] [place] [id number] documented as of this encounter
--- OUTSIDE RECORDS SUMMARY | 2022-01-20 19:46 | XMS_ITS | Encounter Summary ---
:1995 Author Organization [employer] Address [address] [place] [address] Care Team Providers Name Role Phone Clinic, [facility] [place] Primary Care Provider [phone] Reason for Visit Reason Comments Chest Pain Encounter Details Date Type Department Care Team Description 01/03/2017 - Emergency [facility] Matheus Tavarez, Palpitations; 01/04/2017 [facility] Emergency Dep t Chest discomfort [address] [facility] [place] [address] [address] [facility] [place] [phone] [address] [place], [place] [address] (Wo rk) Social History Tobacco Use Types [...] Sign Reading Time Taken Comments Blood Pressure 101/77 01/04/2017 1:10 AM CDT Pulse 107 01/03/2017 8:44 PM CDT Temperature 37.7 ??C (99.8 ??F) 01/03/2017 8:44 PM CDT Respiratory Rate 36 01/04/2017 1:11 AM CDT Oxygen Saturation 96% 01/04/2017 1:11 AM CDT Inhaled Oxygen Concentration - - Weight 99.8 kg (220 lb) 01/03/2017 8:44 PM CDT Height 172.7 cm (5' 8) 01/03/2017 8:44 PM CDT Body Mass Index 33.45 01/03/2017 8:44 PM CDT documented in this encounter Discharge Instructions Discharge InstructionsMatheus Tavarez MD - 01/04/2017 1:07 AM CDT 1. Please return to [facility] for holter monitor placement tomorrow morning. 2. Please call [facility]iology tomorrow to arrange follow-up this week. 3. Please return to the ED as needed for new or worsening symptoms such as fainting, worsening chestpain, worsening shortness of breath, any other concerning symptoms. documented in this encounter ED Notes Max Gutierrez RN - 01/03/2017 11:49 PM CDT Pt states, I dont have anymore pain Herlinda Aguirre RN - 01/03/2017 8:43 PM CDT Pt arrives to ED c/o chest pain since this AM, worse this afternoon while at work. Worse tonight at 1800 with some shortness of breath. Pain shooting down the left arm and in chest along with some palpitations and dizziness. ABCs intact. Aox4 Matheus Tavarez MD - 01/03/2017 8:34 PM CDT History Chief Complaint: Chest Pain HPI Malinda Medina is a 21 year old female with a history of tetralogy of fallot who presents with chest pain. The patient states that today she developed light headedness, nausea, palpitations and sharpcentral chest pain described as a pressure sensation around [address]. Initially her pain was a 7/10, however, now her chest pain is a 1/10. She states that her heart rate was in the 90s whichis abnormal for her as she is typically in the 70s. The patient states that she also noted tunnel vision and decreased concentration. When sitting up, her light headedness is worse. She states that shehas never had symptoms like this previously. The patient reports a 2/10 headache and notes that she does get migraines and this feels like her typical headache. She has not had any vomiting or abdominal pain. She is followed by [facility]. Allergies: No known drug allergies. Medications: The patient is currently on no regular medications. Past Medical History: Congenital anomaly of heart tetralogy repair Anxiety Depression Past Surgical History: Cardiac Surgery for tetralogy of fallot Family History: History reviewed. No pertinent family history. Social History: Marital Status: Single Presents to the ED with mother and friend Tobacco Use: Never Used Alcohol Use: No PCP: [facility] Review of Systems Eyes: Positive for visual disturbance. Cardiovascular: Positive for chest pain and palpitations. Gastrointestinal: Positive for nausea. Negative for abdominal pain and vomiting. Neurological: Positive for light-headedness and headaches. Psychiatric/Behavioral: Positive for decreased concentration. All other systems reviewed and are negative. Physical Exam First Vitals: BP: 121/87 Pulse: 107 Heart Rate: 107 Temp: 99.8 ??F (37.7 ??C) Resp: 18 Height: 172.7 cm (5' 8) Weight: 99.8 kg (220 lb) SpO2: 99 % Physical Exam Constitutional: Well developed, nontox appearance Head: Atraumatic. Mouth/Throat: Oropharynx is clear and moist. Neck: Full ROM, no stridor Eyes: EOMI, PERRL, no scleral icterus Cardiovascular: RRR, systolic murmur, intact distal pulses Pulmonary/Chest: nml resp effort, Clear BS bilat Abdominal: ND, +BS, soft, NT, no rebound or guarding : no CVA tenderness bilat Ext: WWP, no edema Neurological: A&Ox3, symmetric facies, moves ext x4, sensation grossly intact Skin: Skin is warm and dry. Psychiatric: Behavior is normal. Thought content normal. Nursing note and vitals reviewed. Emergency Department Course ECG: @ 2049 Indication: Chest pain Vent. Rate 97 bpm. MT interval 116 ms. QRS duration 126 ms. QT/QTc 358/454 ms. P-R-T axis -4 19 10. Normal sinus rhythm. Right bundle branch block. Abnormal ECG. No significant change when compared to ECG from 05/19/14 Read @ [address] Tavarez. Imaging: Chest x-ray 2 views: No acute abnormality. Preliminary radiology read. Radiographic findings were communicated with the patient who voiced understanding of the findings. Laboratory: CBC: WBC 4.7, HGB 13.0, PLT 176, otherwise WNL BMP: WNL (Creatinine 0.93) (2236) Troponin I: <0.015 TSH: 2.33 Magnesium: 2.2 Interventions: Normal Saline, 1 liter, IV bolus Emergency Department Course: Nursing notes and vitals reviewed. (2004) I performed an exam of the patient as documented above. A peripheral IV was established. Blood was drawn from the patient. This was sent for laboratory testing, findings above. The patient was sent for a chest x-ray while in the emergency department, findings above. (0029) I consulted with Dr. Green of [facility] regarding the patient. (0049) I consulted with Dr. Mclena of [facility] regarding the patient. Findings and plan explained to the patient. Patient discharged home with instructions regarding supportive care, medications, and reasons to return. The importance of close follow-up was reviewed. I personally reviewed the laboratory results with the patient and answered all related questions prior to discharge. Impression & Plan Medical Decision Makin y.o. F presenting with chest discomfort, palpitations, near syncope DDx includes valvular insufficiency, coronary artery insufficiency, ptx, pna, dehydration, electrolyte abnml. EKG sig for NSR w/ RBBB progressed from previous in V3. Labs as above wnl with trop wnl. CXR neg for acute cardiopulm abnml. Pt given fluids in ED w/ resolution of tachycardia. BP improved in ED w/o intervention. Pt reports feeling significantly improved after monitoring and fluids in the ED.Discussed with [facility] regarding recs for discharge and f/u vs transfer and admission given near syncope. Recs given that pt should have a holter monitor placed, f/u in [facility] clinic this week. I counseled pt on result, diagnosis and disposition. She was understanding and agreeable to plan. DC to home in stable condition. Diagnosis: ICD-10-CM 1. Palpitations R00.2 Holter Monitor 48 hour - Adult 2. Chest discomfort R07.89 Disposition: discharged to home I, Alka Johnson, am serving as a scribe on 01/03/2017 at 10:05 PM to personally document servicesperformed by Dr. Tavarez based on my observations and the provider's statements to me. 01/03/2017 [facility] EMERGENCY DEPARTMENT Matheus Tavarez MD 01/04/17 1336 documented in this encounter Plan of Treatment Not on filedocumented as of this encounter Procedures Procedure Name Priority Date/Time Associated Diagnosis Comme nts XR CHEST 2 VIEWS STAT 01/03/2017 11:38 Results for this PM CDT procedure are i n the results section. CBC WITH PLATELETS & STAT 01/03/2017 10:36 Palpitations Res ults for this DIFFERENTIAL PM CDT procedure are i n the results section. TSH WITH FREE T4 STAT 01/03/2017 10:36 Results for this REFLEX PM CDT procedure are i n the results section. TROPONIN I STAT 01/03/2017 10:36 Results for this PM CDT procedure are i n the results section. MAGNESIUM STAT 01/03/2017 10:36 Results for this PM CDT procedure are i n the results section. BASIC METABOLIC PANEL STAT 01/03/2017 10:36 Re sults for this PM CDT procedure are i n the results section. EKG 12-LEAD, TRACING STAT 01/03/2017 8:50 PM R esults for this ONLY CDT procedure are i n the results section. documented in this encounter Results Holter Monitor 48 hour - Adult (01/09/2017) Narrative [facility] - 01/09/2017 [facility] RAD[facility]OLOGY - [facility] [address] [place] [id number] 01/06/2017 Patient: ??Malinda Medina Chart: [id number] : ??1995 Age: ??21 year old Sex: ??female Procedure: ??Holter Monitor Placed: plea se see scanned document for result once interpretation is completed. Straight Cutter performing hook-up: ??Leo Waggoner Matheus Tavarez MD CV CARDIAC SERVICES ORDERABL ES Performing Organization Address City/State/ZIP Code Phon e Number [facility] XR Chest 2 Views (01/03/2017 11:38 PM CDT) Anatomical Region Laterality Modality Chest Digital Radiography Specimen (Source) Anatomical Location Collection Method / Collectio n Time Received Time / Laterality Volume Impressions 01/04/2017 5:53 AM CDT IMPRESSION: No acute abnormality. ALLAN HANSEN MD Narrative 01/04/2017 5:53 AM CDT XR CHEST 2 VW ??01/03/2017 11:38 PM ?? HISTORY: Evaluate edema. COMPARISON: None. FINDINGS: The heart size is normal. The lungs are clear. No pneumothorax or pleural effusion. Procedure Note Allan Hansen MD - 01/04/2017Form atting of this note might be different from the original. XR CHEST 2 VW 01/03/2017 11:38 PM HISTORY: Evaluate edema. COMPARISON: None. FINDINGS: The heart size is normal. The lungs are clear. No pneumothorax or pleural effusion. IMPRESSION: No acute abnormality. ALLAN HANSEN MD Matheus Tavarez MD IMG DIAGNOSTIC IMAGING ORDER NIRU Magnesium (01/03/2017 10:36 PM CDT) athologist Signature Magnesium 2.2 1.6 - 2.3 01/03/2017 [facility] mg/dL 11:43 PM CDT HOSPITAL Specimen Anatomical Collection Method Collection Time Receive d Time (Source) Location / / Volume Laterality Blood specimen 01/03/2017 10:36 7 (specimen) PM CDT 10:56 PM CDT Matheus Tavarez MD LAB - BLOOD ORDERABLES Performing Organization Address City/State/ZIP Code Phon e Number [facility] [address] [place] [address] [facility] [address] [phone] TSH with free T4 reflex (01/03/2017 10:36 PM CDT) athologist Signature TSH 2.33 0.40 - 4.00 01/03/2017 [facility] mU/L 11:48 PM CDT [facility] Specimen Anatomical Collection Method Collection Time Receive d Time (Source) Location / / Volume Laterality Blood specimen 01/03/2017 10:36 7 (specimen) PM CDT 10:56 PM CDT Matheus Tavarez MD LAB - BLOOD ORDERABLES Performing Organization Address [facility] Phon e Number [address] [place] [address] [address] [place], [place] [address] [place] [address] [address] [place], [place] [address] [facility] [phone] Troponin I (01/03/2017 10:36 PM CDT) athologist Signature Troponin I ES <0.015 0.000 - 01/03/2017 [place] 0.045 ug/L 11:43 PM T [facility] Comment: The 99th percentile for upper reference range is 0.045 ug/L. ??Troponin values in the range of 0.045 - 0.120 ug/L may b e associated with risks of adverse clinical events. Specimen Anatomical Collection Method Collection Time Receive d Time (Source) Location / / Volume Laterality Blood specimen 01/03/2017 10:36 7 (specimen) PM CDT 10:56 PM CDT Matheus Tavarez MD LAB - BLOOD ORDERABLES Performing Organization Address City/[facility] Phon e Number [place] [address] [place], [place] [address] [facility] [address] [place], [place] [address] [facility] [phone] Basic metabolic panel (01/03/2017 10:36 PM CDT) athologist Signature Sodium 137 133 - 144 01/03/2017 [place] mmol/L 11:43 PM [facility] Potassium 3.7 3.4 - 5.3 01/03/2017 [place] mmol/L 11:43 PM [facility] Chloride 103 96 - 110 01/03/2017 [place] mmol/L 11:43 PM T [facility] Carbon Dioxide 28 20 - 32 01/03/2017 [place] mmol/L 11:43 PM [facility] Anion Gap 6 3 - 14 01/03/2017 [place] mmol/L 11:43 PM [facility] Glucose 91 70 - 99 01/03/2017 [place] mg/dL 11:43 PM [facility] Urea Nitrogen 14 7 - 30 01/03/2017 [place] mg/dL 11:43 PM [facility] Creatinine 0.93 0.50 - 01/03/2017 [facility] 1.00 mg/dL 11:43 PM [facility] GFR Estimate 77 >60 01/03/2017 [place] mL/min/1.7 11:[address] Comment: Non GFR Calc GFR Estimate If >90 >60 mL/min/1.7m2 01/03/2017 11:43 PM [facility] Comment: GFR Calc Calcium 8.8 8.5 - 10.1 mg/dL 01/03/2017 11:43 PM [facility] Specimen Anatomical Collection Method Collection Time Receive d Time (Source) Location / / Volume Laterality Blood specimen 01/03/2017 10:36 7 (specimen) PM CDT 10:56 PM CDT Matheus Tavarez MD LAB - BLOOD ORDERABLES Performing Organization Address City/State/ZIP Code Phon e Number [place] [address] [phone] CBC with platelets differential (01/03/2017 10:36 PM CDT) [facility] Method Time Signature WBC 4.7 4.0 - 01/03/2017 [facility] 11.0 11:04 PM [facility] 10e9/L [facility] RBC Count 4.58 3.8 - 5.2 01/03/2017 [facility] 10e12/L 11:04 PM [facility] Hemoglobin 13.0 11.7 - 01/03/2017 [facility] 15.7 g/dL 11:04 [facility] Hematocrit 39.5 35.0 - 01/03/2017 [facility] 47.0 % 11:04 PM [facility] MCV 86 78 - 100 01/03/2017 [facility] fl 11:04 PM [facility] MCH 28.4 26.5 - 01/03/2017 [facility] 33.0 pg 11:04 PM [facility] MCHC 32.9 31.5 - 01/03/2017 [facility] 36.5 g/dL 11:04 PM [facility] RDW 12.6 10.0 - 01/03/2017 [facility] 15.0 % 11:04 PM [facility] Platelet Count 176 150 - 450 01/03/2017 [facility] 10e9/L 11:04 PM [facility] Diff Method Automated 01/04/2017 [facility] Method 5:51 AM [facility] % Neutrophils 45.5 % 01/04/2017 [facility] 5:51 AM [facility] % Lymphocytes 44.6 % 01/04/2017 [facility] 5:51 AM [facility] % Monocytes 8.7 % 01/04/2017 [facility] 5:51 AM [facility] % Eosinophils 0.6 % 01/04/2017 [facility] 5:51 AM [facility] % Basophils 0.4 % 01/04/2017 [facility] 5:51 AM [facility] % Immature 0.2 % 01/04/2017 [facility] Granulocytes 5:51 AM [facility] Nucleated RBCs 0 0 /100 01/04/2017 [facility] 5:51 AM [facility] Absolute 2.2 1.6 - 8.3 01/04/2017 [facility] Neutrophil 10e9/L 5:51 AM [facility] Absolute 2.1 0.8 - 5.3 01/04/2017 [facility] Lymphocytes 10e9/L 5:51 AM [facility] Absolute 0.4 0.0 - 1.3 01/04/2017 [facility] Monocytes 10e9/L 5:51 AM [facility] Absolute 0.0 0.0 - 0.7 01/04/2017 [facility] Eosinophils 10e9/L 5:51 AM [facility] Absolute 0.0 0.0 - 0.2 01/04/2017 [facility] Basophils 10e9/L 5:51 AM [facility] Abs Immature 0.0 0 - 0.4 01/04/2017 [place] Granulocytes 10e9/L 5:51 AM [facility] Absolute 0.0 01/04/2017 [place] Nucleated RBC 5:51 AM [facility] Reactive Lymphs Present 01/04/2017 [place] 5:51 AM [facility] RBC Morphology Consistent 01/04/2017 [place] with reported 5:51 AM [facility] Platelet Normal 01/04/2017 [place] Estimate 5:51 AM [facility] Specimen Anatomical Collection Method Collection Time Receive d Time (Source) Location / / Volume Laterality Blood specimen 01/03/2017 10:36 7 (specimen) PM CDT 10:56 PM CDT Matheus Tavarez MD LAB - BLOOD ORDERABLES Performing Organization Address City/State/ZIP Code Phon e Number [place] [address] [address] [place] [address] [phone] EKG 12 lead (01/03/2017 8:50 PM CDT) [facility] gist Method Time Signature Interpretation ECG Click View RADIOLOGY Image link RESULTS to view waveform and result Specimen (Source) Anatomical Collection Method Collection Time Re ceived Time Location / / Volume Laterality 01/03/2017 8:50 PM CDT Matheus Tavarez MD ECG ORDERABLES Performing Organization Address City/[facility]/ZIP [facility] Phon e Number RADIOLOGY RESULTS documented in this encounter Visit Diagnoses Diagnosis Palpitations Chest discomfort Other chest pain Palpitations documented in this encounter Administered Medications Inactive Administered Medications - up to 3 most recent administrations Medication Order MAR Action Action Date Dose Rate Site 0.9% sodium chloride BOLUS New Bag 01/04/2017 12:17 AM 1,000 mLs 1000 mL/hr Intravenous, 1,000 mL, CDT ONCE, at 1,000 mL/hr, Administer over 1 Hours, On Mon01/04/17 at 0010, For 1 dose documented in this encounter Active and Recently Administered Medications Times are shown in CDT. Scheduled Medication Order 01/02/2017 01/03/2017 01/04/2017 0.9% sodium chloride BOLUS (COMPLETED) 0017 (New Bag - Provider: Max Gutierrez, [place]RE[place])0108 (Stopped - Provider: Max Gutierrez, [place]RE[place]) Intravenous, 1,000 mL, ONCE, at 1,000 mL /hr, Administer over 1 Hours, On Mon01/04/17 at 0010, For 1 dose documented in this encounter Care Teams Individual Pension Adviser Relationship Specialty Start Date End Date [facility], [facility] PCP - General 01/03/17 04/25/21 [address] [place] [address] documented as of this encounter
--- OUTSIDE RECORDS SUMMARY | 2022-01-20 19:46 | XMS_ITS | Encounter Summary ---
:1995 Author Organization [place] Address [address] [place] [address] Care Team Providers Name Role Phone Clinic, [facility] Primary Care Provider [phone] Reason for Visit Reason Onset Date Comments Other 04/21/2014 request SBE Encounter Details Date Type Department Care Team Description 04/21/2014 Telephone Pediatric Specialty Mimi Son O ther (request SBE) [facility], [facility] [address] [facility] [facility] [place] [address] [place] [address] [phone] Social History Tobacco Use Types Packs/Day Years Used Date Smoking Tobacco: Never Comments: not exposed to 2nd hand smoke Alcohol Use Standard Drinks/Week Comments No 0 (1 standard drink = 0.6 oz pure alcoho l) Sex Assigned at Date Recorded Female 10/31/2020 4:31 PM CDT documented as of this encounter Miscellaneous Notes Telephone Encounter - Sophia Joseph RN - 04/21/2014 10:12 AM CST Pt.'s mother called to request SBE for upcoming orthodontic appts 04/29/14. Pt has not seen Dr. Prado 2008. Mom said that dentist had continued to prescribe SBE despite no f/u as recommended on 2010. Mom said she had not received a reminder of the appointment. Malinda is doing fine-no concerns. They have scheduled f/u with Dr. Jaqui Nelson in 05/2014. Dentist will not prescribe the SBE this time as she is seeing an redevelopment specialist. Discussed With Dr. Nails, she would like to see pt at office visit with echo before deciding on continuing SBE. We will order SBE at this time since dental appt occurs before cardiology f/u, and re evaluate at cardiology visit. Pt.'s mother is fine with this plan. Sophia Joseph,RN,CPN INER CLEANER documented in this encounter Plan of Treatment Not on filedocumented as of this encounter Visit Diagnoses Not on filedocumented in this encounter Care Teams Human Resources Executive Relationship Specialty Start Date End Date Clinic, [facility] PCP - General 08/30/13 01/02/17 [address] [place] [address] documented as of this encounter
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
--- OUTSIDE RECORDS SUMMARY | 2022-01-20 19:47 | XMS_ITS | Encounter Summary ---
:1995 Author Organization [facility] Address [address] [place] [address] Care Team Providers Name Role Phone Unavailable Primary Care Provider Unavailable Reason for Visit Reason Comments Chest Pain Encounter Details Date Type Department Care Team Description 01/13/2021 Clinical Communication Department of Raman Jett Pain Cardiovascular Medicine Yash, AishaB.SJasper, in [facility] M.P.H. [address] [place] [address] 200 [place] [phone] Social History Tobacco Use Types Packs/Day Years [...] 09/06/2020 relatives? How often do you attend jain or cheondoism Never 09/06/2020 services? Do you belong to any clubs or organizations such Yes 09/06/2020 as jain groups, unions, fraternal or athletic groups, or [...] place to sleep or slept in a long-term (including now)? Education Answer Date Recorded What is the highest level of school you have GED or equivale nt 09/05/2020 completed or the highest degree you have received? Sex Assigned at Date Recorded Not on file documented as of this encounter Miscellaneous Notes Telephone Encounter - Erika Lacy R.N. - 01/13/2021 1:59 PM CDT Information Discussed Ms. Medina has recovered recently from COVID-19 infection and recently received her 2nd COVID-19 vaccination. This morning she experienced 2 hours of shortness of breath and chest discomfort in which she took ibuprofen and Tylenol. She currently feels much better, denies chest pain or shortness of breath. It is unclear what caused these symptoms. Most likely noncardiac. She verbalized understanding knows she can call back if she has recurrence symptoms. PLAN Disposition/Recommendation: self-care is appropriate at this time, patient encouraged to call back with questions Information/Education: patient/caller able to teach back Caller agreeable to plan of care: yes The following references were used: nursing clinical judgement Telephone Encounter - Sofie Lyn - 01/13/2021 8:47 AM CDT SUBJECTIVE CHIEF COMPLAINT / REASON FOR CALL Chest Pain Name of caller/relationship to the patient: Malinda Patient expects communication via portal: No Phone number: [phone] Request topic and what needs to be addressed? Symptoms ?? Goal or summary: Chest pain & SOB after 2nd COVID vaccination ?? Recent change/new symptom/duration: Chest pain & SOB ?? Additional comments: Malinda calls stating she was positive for COVID and recently received her 2nd vaccination and is now experiencing SOB & Chest pain with it. She has taken ibuprofen and Tylenol and that has brought the chest pain down from a 4 to around a 1 or 2. Still having SOB. She is concerned and would like to speak with someone from the care team. documented in this encounter Plan of Treatment Not on filedocumented as of this encounter Visit Diagnoses Not on filedocumented in this encounter Additional Health Concerns Assessment Noted Time PHQ-9 Depression Total Score: 09/10/2020 9:51 AM CD T documented as of this encounter
--- OUTSIDE RECORDS SUMMARY | 2022-01-20 19:47 | XMS_ITS | Encounter Summary ---
:1995 Author Organization [facility] Address [address] [place] [id number] Care Team Providers Name Role Phone Unavailable Primary Care Provider Unavailable Reason for Referral Outpatient (Routine) - Closed Specialty Diagnoses / Procedures Referred By Contact Refer red To Contact Diagnoses Tetralogy Of Fallot (HCC) Raman Jett, [facility] Procedures Echo Transthoracic (TTE) - Adult Congenital M.B.B.S., M.P.H. [address] [place] [phone] Referral ID Status Reason Start Date Expiration Date Visits Requ ested Visits Authorized [id number] Closed 09/11/2020 10/20/2021 1 1 Reason for Visit Outpatient (Routine) - Closed Specialty Diagnoses / Procedures Referred By Contact Refer red To Contact Diagnoses Tetralogy Of Fallot (HCC) Raman Jett, [facility] Procedures Echo Transthoracic (TTE) - Adult Congenital M.B.B.S., M.P.H. 200 [place], [place] [phone] Referral ID Status Reason Start Date Expiration Date Visits Requ ested Visits Authorized [id number] Closed 09/11/2020 10/20/2021 1 1 Encounter Details Date Type Department Care Team Description 10/20/2021 Hospital Department of Raman Jett O f Encounter Cardiovascular Prosper BerriosSJasper, Fallot (HCC) Diseases in [facility] [address] [facility] [address] [place] [phone] Social History Tobacco Use Types Packs/Day Years [...] 09/06/2020 relatives? How often do you attend jewish or congregation Never 09/06/2020 services? Do you belong to any clubs or organizations such Yes 09/06/2020 as jewish groups, unions, fraternal or athletic groups, or [...] place to sleep or slept in a care home (including now)? Education Answer Date Recorded What is the highest level of school you have GED or equivale nt 09/05/2020 completed or the highest degree you have received? Sex Assigned at Date Recorded Not on file documented as of this encounter Last Filed Vital Signs Vital Sign Reading Time Taken Comments Blood Pressure 118/66 10/20/2021 9:02 AM CDT Pulse - - Temperature - - Respiratory Rate - - Oxygen Saturation - - Inhaled Oxygen Concentration - - Weight 93.6 kg (206 lb 5.6 oz) 10/20/2021 9:02 AM CDT Height 171.3 cm (5' 7.44) 10/20/2021 9:02 AM CDT Body Mass Index 31.9 10/20/2021 9:02 AM CDT documented in this encounter Medications at Time of Discharge Medication Sig Dispensed Refills Start Date End Date EC-Naproxen 500 mg EC Take 500 mg by mouth 0 09/08 tablet 2 (two) times a day as needed. hydrOXYzine (ATARAX) 25 TAKE 1 TABLET (25 MG) 0 0 09/13/2021 mg tablet BY MOUTH THREE TIMES A DAY NEEDED FOR ANXIETY OR OTHER (SLEEP). MULTIVITAMIN ORAL Take 1 each by mouth 0 daily. sertraline (ZOLOFT) 25 Take 25 mg by mouth 0 09/09 mg tablet daily. tiZANidine (ZANAFLEX) 4 Take 4 mg by mouth at 0 0 09/19/2021 mg tablet bedtime. traMADoL (ULTRAM) 50 mg TAKE 1 TABLET (50 MG) 0 0 08/18/2021 tablet BY MOUTH TWO TIMES DAILY NEEDED FOR PAIN. levonorgestreL (MIRENA) 1 Device by 0 10/21/2021 20 mcg/24 hours (6 yrs) intrauterine route. 52 mg IUD documented as of this encounter Plan of Treatment Not on filedocumented as of this encounter Procedures Procedure Name Priority Date/Time Associated Comments Diagnosis (TTE) CONGENITAL 2D Routine 10/20/2021 9:51 AM Tetralogy Of Fa llot Results for this WITH COLOR AND CDT (HCC) procedure are in DOPPLER the results section. documented in this encounter Results (TTE) CONGENITAL 2D WITH COLOR AND DOPPLER (10/20/2021 9:51 AM CDT) [facility] gist Method Time Signature Ejection Fraction 66 MC CV EIMS Sinus of Valsalva 42 MC CV EIMS Sinotubular Junction 33 MC CV EIM S Mid-Ascending Aorta 36 MC CV EIMS LV Mass Index 80 MC CV EIMS LV End-Diastolic 47 MC CV EIMS Diameter LV End-Systolic 29 MC CV EIMS Diameter MV E Velocity 0.90 MC CV EIMS MV A Velocity 0.40 MC CV EIMS MV E/A 2.25 MC CV EIMS MV e' Velocity 0.10 MC CV EIMS Medial MV e' Velocity 0.12 MC CV EIMS Lateral MV E/e' Medial 9 MC CV EIMS MV E/e' Lateral 7.50 MC CV EIMS Left ventricular 71 MC CV EIMS stroke volume index Cardiac Output 8.28 MC CV EIMS Cardiac Index 4.02 MC CV EIMS LV Interventricular 10 MC CV EIMS Septal Wall Thickness LV Posterior Wall 10 MC CV EIMS Thickness RV 4-Chamber Basal 40 MC CV EIMS Diameter RV 4-Chamber Mid 39 MC CV EIMS Diameter RV 4-Chamber Length 91 MC CV EIMS TR Vmax 2.80 MC CV EIMS RA Pressure 5 MC CV EIMS RV Systolic Pressure 36 MC CV EIM S Estimated diastolic 6 MC CV EIMS pulmonary artery pressure AV mean gradient 3 MC CV EIMS Aortic valve area 5.81 MC CV EIMS LA Volume Index 28 MC CV EIMS Aortic Valve 1.20 MC CV EIMS Systolic Peak Velocity Anatomical Region Laterality Modality Echocardiography Specimen (Source) Anatomical Collection Method Collection Time Re ceived Time Location / / Volume Laterality 10/20/2021 8:37 AM CDT Impressions 10/20/2021 9:55 AM CDT LEFT VENTRICLE:Normal left ventricular chamber size. Normal left ventricular wall thickness. Calculated M-mode left ventricular ejection fraction 66%. No regional wall motion abnormalities. Normal left ventricular filling pressure. RIGHT VENTRICLE:Mildly enlarged right ve ntricular chamber size. Normal right ventricular systolic function. Estimated right ventricular systolic pressure 36 mmHg (systolic blood pressure 118 mmHg). ATRIA:Normal left atrial size. Left atri al volume index 28 ml/m2. Moderately enlarged right atrial size. CARDIAC VALVES:Trileaflet aortic valve. Normal aortic valve. No aortic valve regurgitation. Normal mitral valve. Trivial mitral valve regurgitation. Status post pulmonary valvotomy. Mild ??tricuspid ema ve stenosis. Pulmonary valve systolic me an Doppler gradient 9 mmHg. Trivial pulmonary valve regurgitation. Tricuspid annulus dilatation. Moderate tricuspid valve regurgitation. OTHER ECHO FINDINGS:Normal inferior vena cava size with normal inspiratory collapse (>50%). Right aortic arch. Mildly enlarged sinus of Valsalva diameter of 42 mm. No abdominal aortic aneurysm. Normal abdominal aorta Doppler flow pattern. Normal pulmonary arteries. Normal pulmonary vei ns. No atrial level shunt by color flow imaging. No ventricular level shunt by color flow. No intracardiac mass or thrombus, but the left atrial appendage cannot be visualized adequately with transthora cic echo to exclude thrombus in this location. No ?? pericardial effusion. For the complete report, see the Order-L evel Documents. Narrative 10/20/2021 9:55 AM CDT For the complete report, see the Order-Level Documents. Final Impressions 1. Previous surgical repair of tetralogy of Fallot , ASD closure, and PDA ligation (e/w, 09-11-98). 2. Status post pulmonary valvotomy. Comb ined valvular and sub-valvular mean gradient ??9 mmHg. Trivial pulmonary valve regurgitation. 3. Mildly enlarged right ventricular hortencia mber size with normal systolic function. 4. Estimated right ventricular systolic pressure 36 mmHg (systolic blood pressure 118 mmHg). 5. Moderate tricuspid valve regurgitatio n. 6. Normal left ventricular chamber size. Calculated ejection fraction 66%. 7. Normal inferior vena cava size with n ormal inspiratory collapse (>50%). 8. No ventricular level shunt by color f low. 9. Right aortic arch. 10. Compared to the report of 09/10/2020 no significant change has occurred. Procedure Note Stephanie Gray M.D. - 10/20/2021 For the complete report, see the Order-L evel Documents. Final Impressions 1. Previous surgical repair of tetralogy of Fallot , ASD closure, and PDA ligation (e/w, 09-11-98). 2. Status post pulmonary valvotomy. Comb ined valvular and sub-valvular mean gradient 9 mmHg. Trivial pulmonary valve regurgitation. 3. Mildly enlarged right ventricular hortencia mber size with normal systolic function. 4. Estimated right ventricular systolic pressure 36 mmHg (systolic blood pressure 118 mmHg). 5. Moderate tricuspid valve regurgitatio n. 6. Normal left ventricular chamber size. Calculated ejection fraction 66%. 7. Normal inferior vena cava size with n ormal inspiratory collapse (>50%). 8. No ventricular level shunt by color f low. 9. Right aortic arch. 10. Compared to the report of 09/10/2020 no significant change has occurred. Findings LEFT VENTRICLE:Normal left ventricular c hamber size. Normal left ventricular wall thickness. Calculated M-mode left ventricular ejection fraction 66%. No regional wall motion abnormalities. Normal left ventricular filling pressure. RIGHT VENTRICLE:Mildly enlarged right ve ntricular chamber size. Normal right ventricular systolic function. Estimated right ventricular systolic pressure 36 mmHg (systolic blood pressure 118 mmHg). ATRIA:Normal left atrial size. Left atri al volume index 28 ml/m2. Moderately enlarged right atrial size. CARDIAC VALVES:Trileaflet aortic valve. Normal aortic valve. No aortic valve regurgitation. Normal mitral valve. Trivial mitral valve regurgitation. Status post pulmonary valvotomy. Mild tricuspid valve stenosis. Pulmonary valve systolic mean Doppler gradient 9 mmHg. Trivial pulmonary valve regurgitation. Tricuspid annulus dilatation. Moderate tricuspid valve regurgitation. OTHER ECHO FINDINGS:Normal inferior vena cava size with normal inspiratory collapse (>50%). Right aortic arch. Mildly enlarged sinus of Valsalva diameter of 42 mm. No abdominal aortic aneurysm. Normal abdominal aorta Doppler flow pattern. Normal pulmonary a rteries. Normal pulmonary veins. No atrial level shunt by color flow imaging. No ventricular level shunt by color flow. No intracardiac mass or thrombus, but the left atrial appendage cannot be visualized adequatel y with transthoracic echo to exclude thrombus in this location. No pericardial effusion. For the complete report, see the Order-L evel Documents. Raman Adams, M.P.H. CV ECHO PROCEDURES documented in this encounter Visit Diagnoses Diagnosis Tetralogy Of Fallot (HCC) documented in this encounter Additional Health Concerns Infection Onset Date Last Indicated Resolved Time COVID19 Pending 10/20/2021 10/20/2021 10/20/2021 3:40 PM CDT Assessment Noted Time PHQ-9 Depression Total Score: 19 09/10/2020 9:51 AM CD T documented as of this encounter
--- OUTSIDE RECORDS SUMMARY | 2022-01-20 19:47 | XMS_ITS | Encounter Summary ---
:1995 Author Organization [facility] Address [address] [place] [address] Care Team Providers Name Role Phone Unavailable Primary Care Provider Unavailable Encounter Details Date Type Department Care Team Description 10/20/2021 Hospital Encounter Department of [facility] Laboratory Medicine M.B.B.S., M. P.H. (HCC) and Pathology, [address] [place] [address] [phone] [place] [address] (Work) [place] [address] Social History Tobacco Use Types Packs/Day Years [...] 09/06/2020 relatives? How often do you attend jehovah's witness or scientology Never 09/06/2020 services? Do you belong to any clubs or organizations such Yes 09/06/2020 as jehovah's witness groups, unions, fraternal or athletic groups, or [...] place to sleep or slept in a [place] [facility] (including now)? Education Answer Date Recorded What is the highest level of school you have GED or equivale nt 09/05/2020 completed or the highest degree you have received? Sex Assigned at Date Recorded Not on file documented as of this encounter Medications at Time of Discharge [...] Procedure Name Priority Date/Time Associated Comments Diagnosis LIPID PANEL, S Routine 10/20/2021 8:17 Tetralogy Of Results fo r this AM CDT [place] (HCC) procedure are i n the results section. CBC WITH DIFFERENTIAL, B Routine 10/20/2021 8:17 Tetralogy Of Results for this AM CDT [place] (HCC) procedure are i n the results section. URIC ACID, S/P Routine 10/20/2021 8:17 Tetralogy Of Results fo r this AM CDT [place] (HCC) procedure are i n the results section. ASPARTATE Routine 10/20/2021 8:17 Tetralogy Of Results for this AMINOTRANSFERASE (AST), AM CDT [place] (HCC) proc edure are in S/P the results section. THYROID-STIMULATING Routine 10/20/2021 8:17 Tetralogy Of Resul ts for this HORMONE-SENSITIVE AM CDT [place] (HCC) procedure are in (S-TSH) the results section. SODIUM, S/P Routine 10/20/2021 8:17 Tetralogy Of Results for this AM CDT [place] (HCC) procedure are i n the results section. POTASSIUM, S/P Routine 10/20/2021 8:17 Tetralogy Of Results fo r this AM CDT [place] (HCC) procedure are i n the results section. ALKALINE PHOSPHATASE, Routine 10/20/2021 8:17 Tetralogy Of Res ults for this S/P AM CDT [place] (HCC) procedure are i n the results section. GLUCOSE, FASTING, S/P Routine 10/20/2021 8:17 Tetralogy Of Res ults for this AM CDT [place] (HCC) procedure are i n the results section. CREATININE WITH EGFR, Routine 10/20/2021 8:17 Tetralogy Of Res ults for this S/P AM CDT [place] (HCC) procedure are i n the results section. BILIRUBIN DIRECT, S/P Routine 10/20/2021 8:17 Tetralogy Of Res ults for this AM CDT [place] (HCC) procedure are i n the results section. BILIRUBIN, TOT, S/P Routine 10/20/2021 8:17 Tetralogy Of Resul ts for this AM CDT [place] (HCC) procedure are i n the results section. ALBUMIN, S/P Routine 10/20/2021 8:17 Tetralogy Of Results for this AM CDT [place] (HCC) procedure are i n the results section. NT-PRO B-TYPE Routine 10/20/2021 8:16 Tetralogy Of Results for this NATRIURETIC PEPTIDE AM CDT [place] (HCC) procedur e are in (BNP), S the results section. BUN (BLOOD UREA Routine 10/20/2021 8:16 Tetralogy Of Results f or this NITROGEN), S/P AM CDT [place] (HCC) procedure are in the results section. PROTEIN, TOTAL, S/P Routine 10/20/2021 8:16 Tetralogy Of Resul ts for this AM CDT [place] (HCC) procedure are i n the results section. documented in this encounter Results Creatinine with Estimated GFR (10/20/2021 8:17 AM CDT) P athologist Signature Creatinine 0.84 0.59 - 10/20/2021 DTL 1.04 mg/dL 9:20 AM CDT eGFR-Non >90 >=60 10/20/2021 DTL Black/ mL/min/BSA 9:20 AM CDT [place] Comment: ----ADDITIONAL INFORMATION---- Estimated GFR calculated using the 2009 CKD_EPI creatinine equation. eGFR-Black/ >90 >=60 mL/min/BSA 2021 9:20 AM CDT DTL Comment: ----ADDITIONAL INFORMATION---- Estimated GFR calculated using the 2009 CKD_EPI creatinine equation. Specimen Anatomical Collection Method Collection Time Receive d Time (Source) Location / / Volume Laterality Blood (Blood, 10/20/2021 8:17 AM 10/21/19 8:53 Venous) CDT AM CDT Raman ChengS., M.P.H. LAB BLOOD ADD-ON Performing Organization Address City/[facility] Code Phon e Number [facility] - [address] [place], [place] [address] [facility] [place] [address] Laboratories-[facility] [address] [facility] Albumin (10/20/2021 8:17 AM CDT) P athologist Signature Albumin, S 4.9 3.5 - 5.0 10/20/2021 DTL g/dL 9:20 AM CDT Specimen Anatomical Collection Method Collection Time Receive d Time (Source) Location / / Volume Laterality Blood (Blood, 10/20/2021 8:17 AM 10/21/19 8:53 Venous) CDT AM CDT Raman LeonardBJasperS., M.P.H. LAB BLOOD ADD-ON Performing Organization Address City/[facility] Code Phon e Number [facility] - [address] [place], [place] [address] [facility] [place] [address] Laboratories-[facility] [address] [facility] Alkaline Phosphatase (10/20/2021 8:17 AM CDT) P athologist Signature Alkaline 61 35 - 104 10/20/2021 DTL Phosphatase, S U/L 9:20 AM CDT Specimen Anatomical Collection Method Collection Time Receive d Time (Source) Location / / Volume Laterality Blood (Blood, 10/20/2021 8:17 AM 10/21/19 8:53 Venous) CDT AM CDT Raman LeonardBJasperS., M.P.H. LAB BLOOD ADD-ON Performing Organization Address City/State/ZIP Code Phon e Number [facility] - [address] [place], [place] [address] [place] [address] Laboratories-[address] AST (Aspartate Aminotransferase) (10/20/2021 8:17 AM CDT) [facility] gist Method Time Signature Aspartate 15 8 - 43 10/20/2021 DTL Aminotransferase U/L 9:20 AM CDT (AST), S Specimen Anatomical Collection Method Collection Time Receive d Time (Source) Location / / Volume Laterality Blood (Blood, 10/20/2021 8:17 AM 10/21/19 8:53 Venous) CDT AM CDT Raman Martino., M.P.H. LAB BLOOD ADD-ON Performing Organization Address City/[facility] Phon e Number [facility] - [address] [place], [place] [address] [place] [address] Laboratories-[address] Bilirubin, Direct (10/20/2021 8:17 AM CDT) athologist Signature Bilirubin, <0.2 0.0 - 0.3 10/20/2021 DTL Direct, S mg/dL 9:20 AM CDT Specimen Anatomical Collection Method Collection Time Receive d Time (Source) Location / / Volume Laterality Blood (Blood, 10/20/2021 8:17 AM 10/21/19 8:53 Venous) CDT AM CDT Raman Martino., M.P.H. LAB BLOOD ADD-ON Performing Organization Address City/State/[facility] Phon e Number [facility] - [address] [place], [place] [address] [place] [address] Bilirubin, Total (10/20/2021 8:17 AM CDT) athologist Signature Bilirubin, 0.6 <=1.2 mg/dL 10/20/2021 DTL Total, S 9:20 AM CDT Specimen Anatomical Collection Method Collection Time Receive d Time (Source) Location / / Volume Laterality Blood (Blood, 10/20/2021 8:17 AM 10/21/19 8:53 Venous) CDT AM CDT Raman Adams, M.P.H. LAB BLOOD ADD-ON Performing Organization Address City/State/[facility] Code Phon e Number [facility] - [address] [place], [place] [address] [place] [address] Laboratories-[facility] [address] [facility] Uric Acid (10/20/2021 8:17 AM CDT) [facility] Signature Uric Acid, S 5.1 2.7 - 6.1 10/20/2021 DTL mg/dL 9:20 AM CDT Specimen Anatomical Collection Method Collection Time Receive d Time (Source) Location / / Volume Laterality Blood (Blood, 10/20/2021 8:17 AM 10/21/19 8:53 Venous) CDT AM CDT Raman Adams, M.P.H. LAB BLOOD ADD-ON Performing Organization Address City/State/[facility] Code Phon e Number [facility] - [address] [place], [place] [address] [place] [address] [facility] [address] [facility] Glucose, Fasting (10/20/2021 8:17 AM CDT) [facility] Signature Glucose, P 99 70 - 100 10/20/2021 DTL mg/dL 9:11 AM CDT Last Intake 2 hr 10/20/2021 DT 8:17 AM CDT Specimen Anatomical Collection Method Collection Time Receive d Time (Source) Location / / Volume Laterality Blood (Blood, 10/20/2021 8:17 AM 10/21/19 8:54 Venous) CDT AM CDT Raman Adams, M.P.H. LAB BLOOD NON ADD-ON Performing Organization Address City/State/[facility] Phon e Number [facility] - [address] [place], [place] [address] [place], [place] [id number] [place] [address] [address] [facility] Potassium (10/20/2021 8:17 AM CDT) P athologist Signature Potassium, S 3.7 3.6 - 5.2 10/20/2021 DTL mmol/L 9:20 AM CDT Specimen Anatomical Collection Method Collection Time Receive d Time (Source) Location / / Volume Laterality Blood (Blood, 10/20/2021 8:17 AM 10/21/19 8:53 Venous) CDT AM CDT Raman Adams, M.P.H. LAB BLOOD ADD-ON Performing Organization Address City/[facility] Code Phon e Number [facility] - [address] [place], [place] [address] [place], [place] [phone] [place] [address] Sodium (10/20/2021 8:17 AM CDT) athologist Signature Sodium, S 141 135 - 145 10/20/2021 9:20 DTL mmol/L AM CDT Specimen Anatomical Collection Method Collection Time Receive d Time (Source) Location / / Volume Laterality Blood (Blood, 10/20/2021 8:17 AM 10/21/19 8:53 Venous) CDT AM CDT Raman Martino., M.P.H. LAB BLOOD ADD-ON Performing Organization Address City/[facility] Code Phon e Number [facility] - [address] [place], [place] [address] [place] [address] S-TSH (Thyroid-Stimulating Hormone - Sensitive) (10/20/2021 8:17 AM CDT) athologist Signature TSH, Sensitive 3.3 0.3 - 4.2 10/20/2021 DTL mIU/L 9:20 AM CDT Specimen Anatomical Collection Method Collection Time Receive d Time (Source) Location / / Volume Laterality Blood (Blood, 10/20/2021 8:17 AM 10/21/19 8:53 Venous) CDT AM CDT Raman Adams, M.P.H. LAB BLOOD ADD-ON Performing Organization Address City/[facility]/ZIP Code Phon e Number [facility] - [address] [place], [place] [address] [facility] [place] [address] Laboratories-[facility] 200 [facility] Lipid Panel (10/20/2021 8:17 AM CDT) P athologist Signature Triglycerides 76 mg/dL 10/20/2021 DTL 9:20 AM CDT Comment: ----REFERENCE VALUE---- Normal: <150 mg/dL Borderline High: 150-199 mg/dL High: 200-499 mg/dL Very High: > or =500 mg/dL Cholesterol, Total 140 mg/dL 10/20/2021 9:20 AM CD T DTL Comment: ----REFERENCE VALUE---- Desirable: < 200 mg/dL Borderline High: 200 - 239 mg/dL High: > or = 240 mg/dL Cholesterol, LDL, Calculated 73 mg/dL 10/20/2021 9:20 AM CDT DTL Comment: ----REFERENCE VALUE---- Desirable: <100 mg/dL Above Desirable: 100-129 mg/dL Borderline High: 130-159 mg/dL High: 160-189 mg/dL Very High: >=190 mg/dL ----ADDITIONAL INFORMATION---- LDL cholesterol calculated using the [place]/NIH equation. Cholesterol, HDL, S 52 >=50 mg/dL 10/20/2021 9:20 AM CDT DTL Cholesterol, Non-HDL, Calculated 88 mg/dL 022 9:20 AM CDT DTL Comment: ----REFERENCE VALUE---- Desirable: <130 mg/dL Above Desirable: 130-159 mg/dL Borderline High: 160-189 mg/dL High: 190-219 mg/dL Very High: > or =220 mg/dL Fasting (8 HR or more) 0645 10/20/2021 8:53 A M CDT DTL Specimen Anatomical Collection Method Collection Time Receive d Time (Source) Location / / Volume Laterality Blood (Blood, 10/20/2021 8:17 AM 10/21/19 8:53 Venous) CDT AM CDT Raman ChengS., M.P.H. LAB BLOOD ADD-ON Performing Organization Address City/State/ZIP Code Phon e Number [facility] - [address] [place], [place] [address] [facility] [place] [address] Laboratories-[facility] 200 [facility] (ABNORMAL) CBC with Differential, Blood (10/20/2021 8:17 AM CDT) [facility] Method Time Signature Hemoglobin 13.3 11.6 - 10/20/2021 DTL 15.0 g/dL 9:42 AM CDT Hematocrit 40.3 35.5 - 10/20/2021 DTL 44.9 % 9:42 AM CDT Erythrocytes 4.48 3.92 - 10/20/2021 DTL 5.13 9:42 AM CDT x10(12)/L MCV 90.0 78.2 - 10/20/2021 DTL 97.9 fL 9:42 AM CDT RBC Distrib Width 12.1 (L) 12.2 - 10/20/2021 DTL 16.1 % 9:42 AM CDT Platelet Count 261 157 - 371 10/20/2021 DTL x10(9)/L 9:42 AM CDT Leukocytes 8.6 3.4 - 9.6 10/20/2021 DTL x10(9)/L 9:42 AM CDT Neutrophils 5.39 1.56 - 10/20/2021 DTL 6.45 9:42 AM CDT x10(9)/L Lymphocytes 2.54 0.95 - 10/20/2021 DTL 3.07 9:42 AM CDT x10(9)/L Monocytes 0.55 0.26 - 10/20/2021 DTL 0.81 9:42 AM CDT x10(9)/L Eosinophils 0.04 0.03 - 10/20/2021 DTL 0.48 9:42 AM CDT x10(9)/L Basophils 0.05 0.01 - 10/20/2021 DTL 0.08 9:42 AM CDT x10(9)/L Specimen Anatomical Collection Method Collection Time Receive d Time (Source) Location / / Volume Laterality Blood (Blood, 10/20/2021 8:17 AM 10/21/19 8:44 Venous) CDT AM CDT Raman Martino., M.P.H. LAB BLOOD ADD-ON Performing Organization Address City/[facility]/ZIP Code Phon e Number [facility] - [address] Protein, Total (10/20/2021 8:16 AM CDT) athologist Signature Protein, Total, 7.6 6.3 - 7.9 10/20/2021 DTL S g/dL 9:26 AM CDT Specimen Anatomical Collection Method Collection Time Receive d Time (Source) Location / / Volume Laterality Blood (Blood, 10/20/2021 8:16 AM 10/21/19 8:54 Venous) CDT AM CDT Raman Adams, M.P.H. LAB BLOOD ADD-ON Performing Organization Address [facility] Phon e Number [facility] [id number] [place] [address] NT-Pro B-Type Natriuretic Peptide (BNP) (10/20/2021 8:16 AM CDT) athologist [facility] NT-Pro BNP 119 <160 pg/mL 10/20/2021 9:26 DTL AM CDT Comment: NT-proBNP values less than 300 pg/mL hav e a 99% negative predictive value for excluding acute con gestive heart failure. A cutoff of 1200 pg/mL for leila ents with an eGFR<60 yields a diagnostic sensitivity and spec ificity of 89% and 72% for acute congestive heart failure. NT-proBNP values greater than 450 pg/mL are consistent wi th CHF in adults under 50 years of age. Specimen Anatomical Collection Method Collection Time Receive d Time (Source) Location / / Volume Laterality Blood (Blood, 10/20/2021 8:16 AM 10/21/19 8:54 Venous) CDT AM CDT Raman Adams, M.P.H. LAB BLOOD ADD-ON Performing Organization Address City/[facility]/ZIP Code Phon e Number [facility] - [address] [place] [address] Laboratories-[facility] [address] BUN (Blood Urea Nitrogen) (10/20/2021 8:16 AM CDT) athologist Signature BUN (Blood Urea 14 6 - 21 10/20/2021 DTL Nitrogen), S mg/dL 9:26 AM CDT Specimen Anatomical Collection Method Collection Time Receive d Time (Source) Location / / Volume Laterality Blood (Blood, 10/20/2021 8:16 AM 10/21/19 8:54 Venous) CDT AM CDT Raman Martino., M.P.H. LAB BLOOD ADD-ON Performing Organization Address City/State/ZIP Code Phon e Number [facility] - [address] [place], [place] [address] [place] [address] Laboratories-[facility] [address] [facility] documented in this encounter Visit Diagnoses Diagnosis Tetralogy Of Fallot (HCC) documented in this encounter Additional Health Concerns Assessment Noted Time PHQ-9 Depression Total Score: 19 09/10/2020 9:51 AM CD T documented as of this encounter
--- OUTSIDE RECORDS SUMMARY | 2022-01-20 19:47 | XMS_ITS | Clinical Summary ---
:1995 Author Organization [facility] Address [address] [place] [id number] Care Team Providers Name Role Phone Unavailable Primary Care Provider Unavailable Source Comments Patient records contain information from all sites at [facility]. For routine questions regarding patient records, call [phone] during business hours, M-F 8:00 AM - 5:00 PM Central Time. Record requests for emergency care only can be directed to [phone] at any time.[facility] Allergies Active Allergy Reactions Severity Noted Date Comments Estrogens Headache 12/28/2020 Topiramate Other (see comments) High 06/30/2020 Worseni ng mood Medications Medication Sig Dispensed Refills Start Date End Date Status MULTIVITAMIN ORAL Take 1 each by 0 Active mouth daily. sertraline (ZOLOFT) 25 Take 25 mg by 0 10/05/2021 Active mg tablet mouth daily. traMADoL (ULTRAM) 50 mg TAKE 1 TABLET (50 0 08/19/19 22 Active tablet MG) BY MOUTH TWO TIMES DAILY NEEDED FOR PAIN. tiZANidine (ZANAFLEX) 4 Take 4 mg by 0 09/19/2021 Active mg tablet mouth at bedtime. EC-Naproxen 500 mg EC Take 500 mg by 0 09/20/2021 Active tablet mouth 2 (two) times a day as needed. hydrOXYzine (ATARAX) 25 TAKE 1 TABLET (25 0 09/14/19 22 Active mg tablet MG) BY MOUTH THREE TIMES A DAY NEEDED FOR ANXIETY OR OTHER (SLEEP). Active Problems Problem Noted Date Tetralogy Of Fallot Encounters Date Type Specialty Care Team Description 10/21/2021 Office Visit Cardiovascular Disease Raman Jett [facility], Sarai Adams (SADE) M.P.H. (Primary Dx) 10/20/2021 [facility] Cardiovascular Disease Johnie Raman Aureliano childresslogbakari Of Encounter Bryan Berrios Fallot (SADE) M.P.H. 10/20/2021 [facility] Laboratory Medicine Raman Jett Roxanne logy Of Encounter CBryan Fallot ([facility]) M.P.H. from Last 3 Months Family History Medical History Relation Name Comments Breast cancer Father's Sister Jenni Coronary artery disease Maternal Grandfather Max Arthritis Maternal Grandmother Veronique Dementia Maternal Grandmother Veronique Diabetes Maternal Grandmother Veronique Obesity Maternal Grandmother Veronique Psychiatric Maternal Grandmother Veronique Stroke Maternal Grandmother Veronique Arthritis Mother Emma Breast cancer Mother's Sister 1 Joanie Breast cancer Mother's Sister 2 Herlinda Relation Name Status Comments Father's Sister Jenni Maternal Grandfather Max Maternal Grandmother Veronique Mother Emma Mother's Sister 1 Joanie Mother's Sister 2 Herlinda Social History Tobacco Use Types Packs/Day Years [...] 09/06/2020 relatives? How often do you attend lutheran or sabianism Never 09/06/2020 services? Do you belong to any clubs or organizations such Yes 09/06/2020 as lutheran groups, unions, fraternal or athletic groups, or [...] place to sleep or slept in a fdc (including now)? Education Answer Date Recorded What is the highest level of school you have GED or equivale nt 09/05/2020 completed or the highest degree you have received? Sex Assigned at Date Recorded Not on file Last Filed Vital Signs Vital Sign Reading [...] Mass Index 32.49 10/21/2021 8:46 AM CDT Plan of Treatment Health Maintenance Due Date Last Done Comments Chlamydia and Gonorrhea 1995 Screening HIV Screening 1995 Hepatitis B Vaccines (1 of 1997 3 - 3-dose series) Hepatitis C Screening 1995 Depression Screening 04/10/2021 (Annual PHQ-2) COVID-19 Vaccine (4 - 07/22/2021 05/27/2021, 01/12/2021, Booster for Pfizer series) 12/14/2020 Influenza Vaccine (#1) 2022 01/16/2021, 03/05/2019, 04/23/2013, Additional history exists Cervical Cancer Screening 03/26/2023 03/26/2020 DTaP,Tdap,and Td Vaccines 09/20/2027 09/19/2017, 11/23/2009 , (8 - Td or Tdap) 10/10/2002, Additional history exists Pneumococcal vaccine (0-64 Aged Out 02/27/2001, 1, No longer eligible years) 02/29/2000 based on patient 's age to complete this topic HPV Vaccines Completed 02/04/2014, 02/04/2014, 04/23/2013, Additional history exists Procedures Procedure Name Priority Date/Time Associated Comments Diagnosis SARS COV-2 RNA, PCR, Routine 10/20/2021 10:55 Encounter For Re sults for this VARIES AM CDT Screening For procedure are in Other Viral the results Diseases section. (COVID-19) ECG Routine 10/20/2021 10:25 Tetralogy Of Results for this AM CDT Fallot (HCC) procedure are i n the results section. (TTE) CONGENITAL 2D WITH Routine 10/20/2021 9:51 Tetralogy Of Results for this COLOR AND DOPPLER AM CDT Fallot (HCC) procedure are in the results section. CREATININE WITH EGFR, Routine [...] edure are in S/P the results section. BILIRUBIN DIRECT, S/P Routine [...] procedure are i n the results section. SODIUM, S/P Routine 10/20/2021 8:17 Tetralogy Of Results for this AM CDT Fallot (HCC) procedure are i n the results section. THYROID-STIMULATING Routine 10/20/2021 8:17 Tetralogy Of Resul ts for this HORMONE-SENSITIVE AM CDT Fallot (HCC) procedure are in (S-TSH) the results section. LIPID PANEL, S Routine 10/20/2021 8:17 Tetralogy Of Results fo r this AM CDT Fallot (HCC) procedure are i n the results section. CBC WITH DIFFERENTIAL, B Routine 10/20/2021 8:17 Tetralogy Of Results for this AM CDT Fallot (HCC) procedure are i n the results section. PROTEIN, TOTAL, S/P Routine [...] (HCC) procedure are in the results section. from Last 3 Months Results SARS CoV-2 RNA, PCR, Varies Asymptomatic (10/20/2021 10:55 AM CDT) [facility] Method Time Signature SARS CoV-2 Swab, 10/20/2021 DTL RNA, PCR, Nasopharynx 3:40 PM CDT Source SARS CoV-2 Undetected Undetected 10/20/2021 DTL RNA, PCR 3:40 PM CDT Comment: SARS-CoV-2 RNA absent. This result does not rule out COVID-19 in the patient, as the sensitivity of the test depends o n the timing of the specimen collection and quality of the specimen. Result should be correlated with patient's history and clinical presentat ion. ----ADDITIONAL INFORMATION---- This RT-PCR test has received Emergency Use Authorization (EUA) by the U.S. Food and Drug Administration an d is used per nuclear fuel enrichment technician's instructions. Performance characteristics were verified by [facility] in a manner consistent with CLIA requirements. Visit the CDC website: https://www.cdc.g ov/coronavirus/ for the most recent guidelines on Coron avirus testing. Fact Sheet for Healthcare Providers: https://www.fda.gov/media/936681/downloa d Fact Sheet for Patients: https://www.fda.gov/media/907688/downloa d Specimen Anatomical Collection Method Collection Time Receive d Time (Source) Location / / Volume Laterality Varies 10/20/2021 10:55 10/20/2021 (Nasopharynx) AM CDT 11:22 AM CDT Raman Adams, M.P.H. LAB MICROBIOLOGY - G ENERAL ORDERABLES Performing Organization Address City/State/ZIP Code Phon e Number [facility] - [address] [place] [address] [address] [facility] [place] [address] [facility] 200 [facility] ECG 12 Lead (10/20/2021 10:25 AM CDT) P athologist Signature Ventricular Rate 57 BPM MUSE ECG/Min PA Interval 150 ms MUSE QRSD Interval 136 ms MUSE QT Interval 462 ms MUSE QTC Interval 449 ms MUSE P Tolar 9 degrees MUSE R Tolar 36 degrees MUSE T Wave Tolar 31 degrees MUSE Specimen Anatomical Collection Method Collection Time Receive d Time (Source) Location / / Volume Laterality 10/20/2021 10:25 10/20/2021 AM CDT 10:30 AM CDT Impressions MUSE - 10/20/2021 10:30 AM CDT Sinus bradycardia with sinus arrhythmia Right bundle branch block with secondary ST-T abnormalities When compared with ECG of 10-SEP-2020 11 :11, No significant change was found Reviewed by BERT Germain Narrative This result has an attachment that is no t available. Procedure Note Eddie Fritz M.D. - 10/20/2021Formatt ing of this note might be different from the original. IMPRESSION: Sinus bradycardia with sinus arrhythmia Right bundle branch block with secondary ST-T abnormalities When compared with ECG of 10-SEP-2020 11 :11, No significant change was found Reviewed by BERT Germain Raman Martino., M.P.H. ECG ORDERABLES Performing Organization Address City/State/ZIP Code Phon e Number MUSE MUSE NA (TTE) CONGENITAL 2D WITH COLOR AND DOPPLER (10/20/2021 9:51 AM CDT) Patholo gist Method Time Signature Ejection Fraction 66 [...] effusion. For the complete report, see the Elvia-Reji babin Documents. Narrative 10/20/2021 9:55 AM CDT For [...] report, see the Order-L evel Documents. Raman Martino., M.P.H. CV ECHO PROCEDURES Lipid Panel (10/20/2021 8:17 AM CDT) P [...] Organization Address City/State/ZIP Code Phon e Number [facility] - [address] [place] [address] [facility] [place] [address] [facility] [address] [facility] (ABNORMAL) CBC with Differential, Blood (10/20/2021 8:17 AM CDT) [facility] Method Time Signature Hemoglobin 13.3 11.6 [...] M.P.H. LAB BLOOD ADD-ON Performing Organization Address City/[facility] Phon e Number [facility] - [address] Uric Acid (10/20/2021 8:17 AM CDT) P athologist Signature Uric Acid, S 5.1 2.7 - 6.1 10/20/2021 DTL mg/dL 9:20 AM CDT Specimen Anatomical Collection Method Collection Time Receive d Time (Source) Location / / Volume Laterality Blood (Blood, 10/20/2021 8:17 AM 10/21/19 22 8:53 Venous) CDT AM CDT Raman Martino., M.P.H. LAB BLOOD ADD-ON Performing Organization Address City/[facility] Phon e Number [facility] - [address] AST (Aspartate Aminotransferase) (10/20/2021 8:17 AM CDT) Patholo gist Method Time Signature Aspartate 15 8 - 43 10/20/2021 DTL Aminotransferase U/L 9:20 AM CDT (AST), S Specimen Anatomical Collection Method Collection Time Receive d Time (Source) Location / / Volume Laterality Blood (Blood, 10/20/2021 8:17 AM 10/21/19 8:53 Venous) CDT AM CDT Raman Martino., M.P.H. LAB BLOOD ADD-ON Performing Organization Address City/[facility] Phon e Number [facility] - [address] 200 [facility] S-TSH (Thyroid-Stimulating Hormone - Sensitive) (10/20/2021 8:17 AM CDT) athologist Signature TSH, Sensitive 3.3 0.3 - 4.2 10/20/2021 DTL mIU/L 9:20 AM CDT Specimen Anatomical Collection Method Collection Time Receive d Time (Source) Location / / Volume Laterality Blood (Blood, 10/20/2021 8:17 AM 10/21/19 8:53 Venous) CDT AM CDT Raman Martino., M.P.H. LAB BLOOD ADD-ON Performing Organization Address City/[facility] Phon e Number [facility] - [address] Sodium (10/20/2021 8:17 AM CDT) athologist Signature Sodium, S 141 135 - 145 10/20/2021 9:20 DTL mmol/L AM CDT Specimen Anatomical Collection Method Collection Time Receive d Time (Source) Location / / Volume Laterality Blood (Blood, 10/20/2021 8:17 AM 10/21/19 8:53 Venous) CDT AM CDT Raman ChengS., M.P.H. LAB BLOOD ADD-ON Performing Organization Address City/[facility]/ZIP Code Phon e Number [facility] - 200 [place], [place] [address] [address] 200 [facility] Potassium (10/20/2021 8:17 AM CDT) athologist Signature Potassium, S 3.7 3.6 - 5.2 10/20/2021 DTL mmol/L 9:20 AM CDT Specimen Anatomical Collection Method Collection Time Receive d Time (Source) Location / / Volume Laterality Blood (Blood, 10/20/2021 8:17 AM 10/21/19 8:53 Venous) CDT AM CDT Raman Lyles.S., M.P.H. LAB BLOOD ADD-ON Performing Organization Address City/[facility] Phon e Number [facility] - [address] Alkaline Phosphatase (10/20/2021 8:17 AM CDT) athologist Signature Alkaline 61 35 - 104 10/20/2021 DTL Phosphatase, S U/L 9:20 AM CDT Specimen Anatomical Collection Method Collection Time Receive d Time (Source) Location / / Volume Laterality Blood (Blood, 10/20/2021 8:17 AM 10/21/19 8:53 Venous) CDT AM CDT Raman LeonardB.S., M.P.H. LAB BLOOD ADD-ON Performing Organization Address City/State/[facility] Code Phon e Number [facility] - 200 [place] [phone] [address] Glucose, Fasting (10/20/2021 8:17 AM CDT) athologist Signature Glucose, P 99 70 - 100 10/20/2021 DTL mg/dL 9:11 AM CDT Last Intake 2 hr 10/20/2021 DTL 8:17 AM CDT Specimen Anatomical Collection Method Collection Time Receive d Time (Source) Location / / Volume Laterality Blood (Blood, 10/20/2021 8:17 AM 10/21/19 8:54 Venous) CDT AM CDT Raman Adams, M.P.H. LAB BLOOD NON ADD-ON Performing Organization Address City/[facility] Phon e Number [facility] - 200 [place], [place] [address] [place] [address] [place], [place] [id number] [place] [address] Creatinine with Estimated GFR (10/20/2021 8:17 AM CDT) athologist Signature Creatinine 0.84 0.59 - 10/20/2021 DTL 1.04 mg/dL 9:20 AM CDT eGFR-Non >90 >=60 10/20/2021 DTL Black/ mL/min/BSA 9:20 AM CDT [place] Comment: ----ADDITIONAL INFORMATION---- Estimated GFR calculated using [...] M.P.H. LAB BLOOD ADD-ON Performing Organization Address City/[facility] Code Phon e Number [facility] - 200 [place], [place] [address] [facility] [place] [address] Bilirubin, Direct (10/20/2021 8:17 AM CDT) P athologist Signature Bilirubin, <0.2 0.0 - 0.3 10/20/2021 DTL Direct, S mg/dL 9:20 AM CDT Specimen Anatomical Collection Method Collection Time Receive d Time (Source) Location / / Volume Laterality Blood (Blood, 10/20/2021 8:17 AM 10/21/19 22 8:53 Venous) CDT AM CDT Raman Adams, M.P.H. LAB BLOOD ADD-ON Performing Organization Address City/[facility] Phon e Number [facility] - [address] Bilirubin, Total (10/20/2021 8:17 AM CDT) athologist Signature Bilirubin, 0.6 <=1.2 mg/dL 10/20/2021 DTL Total, S 9:20 AM CDT Specimen Anatomical Collection Method Collection Time Receive d Time (Source) Location / / Volume Laterality Blood (Blood, 10/20/2021 8:17 AM 10/21/19 8:53 Venous) CDT AM CDT Raman Adams, M.P.H. LAB BLOOD ADD-ON Performing Organization Address City/[facility] Phon e Number [facility] - [address] Albumin (10/20/2021 8:17 AM CDT) athologist Signature Albumin, S 4.9 3.5 - 5.0 10/20/2021 DTL g/dL 9:20 AM CDT Specimen Anatomical Collection Method Collection Time Receive d Time (Source) Location / / Volume Laterality Blood (Blood, 10/20/2021 8:17 AM 10/21/19 8:53 Venous) CDT AM CDT Raman Adams, M.P.H. LAB BLOOD ADD-ON Performing Organization Address City/[facility] Phon e Number [facility] - [address] NT-Pro B-Type Natriuretic Peptide (BNP) (10/20/2021 8:16 AM CDT) athologist Signature NT-Pro BNP 119 <160 pg/mL 10/20/2021 9:26 [...] M.P.H. LAB BLOOD ADD-ON Performing Organization Address City/[facility] Phon e Number [facility] - [address] [place] [address] [place] [address] BUN (Blood Urea Nitrogen) (10/20/2021 8:16 AM CDT) athologist Signature BUN (Blood Urea 14 6 - 21 10/20/2021 DTL Nitrogen), S mg/dL 9:26 AM CDT Specimen Anatomical Collection Method Collection Time Receive d Time (Source) Location / / Volume Laterality Blood (Blood, 10/20/2021 8:16 AM 10/21/19 8:54 Venous) CDT AM CDT Raman Adams, M.P.H. LAB BLOOD ADD-ON Performing Organization Address City/State/[facility] Code Phon e Number [facility] - 200 [place], [place] [address] [place] [address] Protein, Total (10/20/2021 8:16 AM CDT) P athologist Signature Protein, Total, 7.6 6.3 - 7.9 10/20/2021 DTL S g/dL 9:26 AM CDT Specimen Anatomical Collection Method Collection Time Receive d Time (Source) Location / / Volume Laterality Blood (Blood, 10/20/2021 8:16 AM 10/21/19 8:54 Venous) CDT AM CDT Raman Martino., M.P.H. LAB BLOOD ADD-ON Performing Organization Address City/State/ZIP Code Phon e Number [facility] - [address] [place], [place] [address] [facility] [place] [address] [facility] [address] from Last 3 Months Insurance Payer Benefit Plan Subscriber ID Effective Dates Phone Address Type / Group [facility] [id number] 2021-Brigid [phone] [id number] Medicaid HMO t 5 [place] [address]
--- OUTSIDE RECORDS SUMMARY | 2022-01-20 19:47 | XMS_ITS | Encounter Summary ---
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 [facility] Procedures MR Cardiac without and with IV Contrast [address] [place] [address] Referral ID Status Reason Start Date Expiration Date Visits Requ ested Visits Authorized [id number] Closed 09/11/2020 09/11/2021 1 1 Encounter Details Date Type Department Care Team Description 09/11/2020 Hospital Encounter Department of Will Bourgeois Anoma ly Heart Congenital (HCC); Radiology, Willard Chery Pain Chest Atypical [facility], in [address] [place], [place] [address] [place] [phone] [place], [place] [phone] (Work) [phone] Social History Tobacco Use Types Packs/Day Years [...] 09/06/2020 relatives? How often do you attend pentecostal or druze Never 09/06/2020 services? Do you belong to any clubs or organizations such Yes 09/06/2020 as pentecostal groups, unions, fraternal or athletic groups, or [...] Sign Reading Time Taken Comments Blood Pressure - - Pulse - - Temperature - - Respiratory Rate - - Oxygen Saturation - - Inhaled Oxygen Concentration - - Weight 96 kg (211 lb 10.3 oz) 09/11/2020 10:28 AM CDT Height 169.5 cm (5' 6.73) 09/11/2020 10:28 AM CDT Body Mass Index 33.41 09/11/2020 10:28 AM CDT documented in this encounter Medications at Time of Discharge Medication Sig Dispensed Refills Start Date End Date MULTIVITAMIN ORAL Take 1 each by mouth 0 daily. levonorgestreL (MIRENA) 1 Device by 0 10/21/2021 20 mcg/24 hours (6 yrs) intrauterine route. 52 mg IUD documented as of this encounter Plan of Treatment Not on filedocumented as of this encounter Procedures Procedure Name Priority Date/Time Associated Comments Diagnosis MR CARDIAC RAD - Routine 09/11/2020 12:11 Anomaly Heart Results f or this WITHOUT AND WITH (most inpatients PM CDT Congenital (HC C) procedure are in IV CONTRAST and all Pain Chest the results outpatients) Atypical section. documented in this encounter Results MR Cardiac without and with IV Contrast (09/11/2020 12:11 PM CDT) Anatomical Region Laterality Modality Cardiac, Cardiovascular RST LOS, Thoracic ARZ LOS, N/A Magnetic Resonance Cardiovascular FLA LOS Specimen (Source) Anatomical Collection Method Collection Time Re ceived Time Location / / Volume Laterality 09/11/2020 11:20 AM CDT Impressions 09/11/2020 1:14 PM CDT 1. ??Repaired tetralogy of Fallot, atrial septal defect closure, and patent ductus arteriosus ligation. 2. ??Normal right ventricle size and jill bal systolic function. RVEDV index 81-82mL/m2. RVEF 62-64%. 3. ??No abnormal right ventricular late gadolinium enhancement. 4. ??Normal left ventricle size and glob al systolic function. LVEF 58%. 5. ??Left anterior descending artery cou rses in very close proximity to the pulmonary valve. 6. ??Upper normal sized aortic root and ascending aorta. Narrative 09/11/2020 1:14 PM CDT EXAM: ??MR CARDIAC WITHOUT AND WITH IV CONTRAST COMPARISON: ??None FINDINGS: ?? Repaired tetralogy of Fallot, atrial sep carrie defect closure, and patent ductus arteriosus ligation. Veins: Systemic veins: Right-sided superior and inferior vena cava drain into right atrium. Pulmonary veins: 2 left and 3 right pulm onary veins drain into the left atrium. Posterior right upper lobe pulmonary vei n drains separately into the left atrium. Atria: No atrial septal defect. Right atrium: Normal size. Left atrium: Normal size. Atrioventricular valves: Tricuspid valve: No tricuspid valve sten osis. Mild tricuspid valve regurgitation is present. Mitral valve: No mitral valve stenosis o r regurgitation. Ventricles: No ventricular septal defect . Right ventricle: Right ventricle is norm al in size. Mild right ventricular hypertrophy. Right ventricular global sy stolic function is normal. Minimum distance between the sternum and the rig ht ventricle is approximately 3 mm. No abnormal right ventricular myocardial la te gadolinium enhancement. Left ventricle: Normal left ventricle si ze, wall thickness, and global systolic function. No abnormal left ventricular m yocardial late gadolinium enhancement. Ventriculoarterial valves: Pulmonary valve: Mild pulmonary valve re gurgitation. Mild pulmonary valve stenosis. Aortic valve: Tricuspid aortic valve. No aortic valve stenosis or regurgitation. Arteries: Pulmonary arteries: Normal caliber pulmo nary arteries. No pulmonary artery stenosis or aneurysm. No pulmonary embol us. Aorta: Upper normal aortic root, 39 mm f rom right sinus to posterior sinus and right sinus to left sinus. Upper normal caliber ascending thoracic aorta, 35 mm. Right-sided aortic arch with mirror imag e branching. Coronary arteries: Normal coronary artery origins. Left dom inant coronary artery anatomy. Left anterior descending coronary artery cour ses in very close proximity to the pulmonary valve. The minimum distance be tween the left anterior descending coronary artery and the pulmonary valve is less than 1 mm. Medium-sized acute marginal artery is approximately 3 mm fr om the posterior wall of the sternum. MEASUREMENTS: Series 100 = short axis cine Series 101 = axial cine Patient weight: 96 kg Patient height: 169 cm BSA: 2.1 m2 Series 100: LEFT VENTRICLE: LV End Diastolic Volume = 177mL; Index = 84mL/m2 (normal = 50-98) LV End Systolic Volume = 75mL; Index = 3 5mL/m2 (normal = 17-41) LV Stroke Volume = 102mL; Index = 48mL/m 2 (normal = 29-61) LV Ejection Fraction = 58% (normal = 51- 71) LV End Diastolic Mass = 102g; Index = 48 g/m2 (normal = 28-56) Series 100: RIGHT VENTRICLE: RV End Diastolic Volume = 172mL; Index = 81mL/m2 (normal = 51-103) RV End Systolic Volume = 63mL; Index = 3 0mL/m2 (normal = 15-51) RV Stroke Volume = 110mL; Index = 52mL/m 2 (normal = 29-61) RV Ejection Fraction = 64% (normal = 46- 70) Series 101: RIGHT VENTRICLE: RV End Diastolic Volume = 173mL; Index = 82mL/m2 (normal = 51-103) RV End Systolic Volume = 64mL; Index = 3 0mL/m2 (normal = 15-51) RV Stroke Volume = 109mL; Index = 51mL/m 2 (normal = 29-61) RV Ejection Fraction = 63% (normal = 46- 70) Flow quantification: Due to aliasing and flow is present in t he ascending aorta and main pulmonary artery, flow quantification was performe d in the left and right pulmonary arteries to quantify pulmonary blood amna w and in the descending aorta and superior vena cava to quantify systemic blood flow. Tricuspid valve: 84 mL per heartbeat, mi ld regurgitation Left pulmonary artery: 41 mL per heartbe at, minimal regurgitation Right pulmonary artery: 49 mL per heartb eat, minimal regurgitation Descending aorta: 65 mL per heartbeat Superior vena cava: 27 mL per heartbeat Procedure Note Matheus Patel M.D. - 09/11/2020 EXAM: MR CARDIAC WITHOUT AND WITH IV CON TRAST COMPARISON: None FINDINGS: Repaired tetralogy of Fallot, atrial sep carrie defect closure, and patent ductus arteriosus ligation. Veins: Systemic veins: Right-sided superior and inferior vena cava drain into right atrium. Pulmonary veins: 2 left and 3 right pulm onary veins drain into the left atrium. Posterior right upper lobe pulmonary vei n drains separately into the left atrium. Atria: No atrial septal defect. Right atrium: Normal size. Left atrium: Normal size. Atrioventricular valves: Tricuspid valve: No tricuspid valve sten osis. Mild tricuspid valve regurgitation is present. Mitral valve: No mitral valve stenosis o r regurgitation. Ventricles: No ventricular septal defect . Right ventricle: Right ventricle is norm al in size. Mild right ventricular hypertrophy. Right ventricular global sy stolic function is normal. Minimum distance between the sternum and the rig ht ventricle is approximately 3 mm. No abnormal right ventricular myocardial la te gadolinium enhancement. Left ventricle: Normal left ventricle si ze, wall thickness, and global systolic function. No abnormal left ventricular m yocardial late gadolinium enhancement. Ventriculoarterial valves: Pulmonary valve: Mild pulmonary valve re gurgitation. Mild pulmonary valve stenosis. Aortic valve: Tricuspid aortic valve. No aortic valve stenosis or regurgitation. Arteries: Pulmonary arteries: Normal caliber pulmo nary arteries. No pulmonary artery stenosis or aneurysm. No pulmonary embol us. Aorta: Upper normal aortic root, 39 mm f rom right sinus to posterior sinus and right sinus to left sinus. Upper normal caliber ascending thoracic aorta, 35 mm. Right-sided aortic arch with mirror imag e branching. Coronary arteries: Normal coronary artery origins. Left dom inant coronary artery anatomy. Left anterior descending coronary artery cour ses in very close proximity to the pulmonary valve. The minimum distance be tween the left anterior descending coronary artery and the pulmonary valve is less than 1 mm. Medium-sized acute marginal artery is approximately 3 mm fr om the posterior wall of the sternum. MEASUREMENTS: Series 100 = short axis cine Series 101 = axial cine Patient weight: 96 kg Patient height: 169 cm BSA: 2.1 m2 Series 100: LEFT VENTRICLE: LV End Diastolic Volume = 177mL; Index = 84mL/m2 (normal = 50-98) LV End Systolic Volume = 75mL; Index = 3 5mL/m2 (normal = 17-41) LV Stroke Volume = 102mL; Index = 48mL/m 2 (normal = 29-61) LV Ejection Fraction = 58% (normal = 51- 71) LV End Diastolic Mass = 102g; Index = 48 g/m2 (normal = 28-56) Series 100: RIGHT VENTRICLE: RV End Diastolic Volume = 172mL; Index = 81mL/m2 (normal = 51-103) RV End Systolic Volume = 63mL; Index = 3 0mL/m2 (normal = 15-51) RV Stroke Volume = 110mL; Index = 52mL/m 2 (normal = 29-61) RV Ejection Fraction = 64% (normal = 46- 70) Series 101: RIGHT VENTRICLE: RV End Diastolic Volume = 173mL; Index = 82mL/m2 (normal = 51-103) RV End Systolic Volume = 64mL; Index = 3 0mL/m2 (normal = 15-51) RV Stroke Volume = 109mL; Index = 51mL/m 2 (normal = 29-61) RV Ejection Fraction = 63% (normal = 46- 70) Flow quantification: Due to aliasing and flow is present in t he ascending aorta and main pulmonary artery, flow quantification was performe d in the left and right pulmonary arteries to quantify pulmonary blood amna w and in the descending aorta and superior vena cava to quantify systemic blood flow. Tricuspid valve: 84 mL per heartbeat, mi ld regurgitation Left pulmonary artery: 41 mL per heartbe at, minimal regurgitation Right pulmonary artery: 49 mL per heartb eat, minimal regurgitation Descending aorta: 65 mL per heartbeat Superior vena cava: 27 mL per heartbeat IMPRESSION: 1. Repaired tetralogy of Fallot, atrial septal defect closure, and patent ductus arteriosus ligation. 2. Normal right ventricle size and globa l systolic function. RVEDV index 81-82mL/m2. RVEF 62-64%. 3. No abnormal right ventricular late ga dolinium enhancement. 4. Normal left ventricle size and global systolic function. LVEF 58%. 5. Left anterior descending artery cours es in very close proximity to the pulmonary valve. 6. Upper normal sized aortic root and as cending aorta. 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 documented in this encounter Administered Medications Inactive Administered Medications - up to 3 most recent administrations Medication Order MAR Action Action Date Dose Rate Site gadobutrol injection 0.01-30 mL Given 09/11/2020 11:40 AM CDT 20 mL (GADAVIST) 0.01-30 mL, intravenous, Once in imaging, contrast, Starting on Mon09/11/20 at 1140, For 1 dose, Imaging Protocol Orders, Dose per Radiant Medication Guidelines sodium chloride (PF) 0.9 % injection 1-1 00 mL Given 09/11/2020 11:40 AM CDT 40 mL 1-100 mL, intravenous, Once, On Mon09/11/20 at 1145, For 1 dose, Imaging Protocol Orders documented in this encounter Additional Health Concerns Assessment Noted Time PHQ-9 Depression Total Score: 19 09/10/2020 9:51 AM CD T documented as of this encounter
--- OUTSIDE RECORDS SUMMARY | 2022-01-20 19:47 | XMS_ITS | Encounter Summary ---
:[address] [facility] Address [address] [place] [address] Care Team Providers Name Role Phone Unavailable Primary Care Provider Unavailable Reason for Referral Outpatient (Routine) - Closed Specialty Diagnoses / Procedures Referred By Contact Refer red To Contact Diagnoses Tetralogy Of Fallot (HCC) Raman Jtet, [facility] Procedures Cardiopulmonary (VO2) Exercise Test Bryan, M.P.H. [address] [place] [phone] Referral ID Status Reason Start Date Expiration Date Visits Requ ested Visits Authorized [id number] Closed 08/03/2020 08/03/2021 1 1 Reason for Visit Outpatient (Routine) - Closed Specialty Diagnoses / Procedures Referred By Contact Refer red To Contact Diagnoses Tetralogy Of Fallot (HCC) Raman Jett, [facility] Procedures Cardiopulmonary (VO2) Exercise Test Latonya.BJasperBJasperSJasper, M.P.H. [address] [place] [phone] Referral ID Status Reason Start Date Expiration Date Visits Requ ested Visits Authorized [id number] Closed 08/03/2020 08/03/2021 1 1 Encounter Details Date Type Department Care Team Description 09/11/2020 Hospital Department of Raman Jett O f Encounter Cardiovascular Bryan Berrios, Fallot (HCC) Diseases in [facility] [place] 200 [facility] [address] [place] [phone] Social History Tobacco Use Types Packs/Day Years [...] 09/06/2020 relatives? How often do you attend orthodoxy or confucianist Never 09/06/2020 services? Do you belong to any clubs or organizations such Yes 09/06/2020 as orthodoxy groups, unions, fraternal or athletic groups, or [...] minutes do you engage in exercise at is 30 min 09/06/2020 level? Financial Resource [...] place to sleep or slept in a [facility] (including now)? Education Answer Date Recorded What [...] Procedure Name Priority Date/Time Associated Comments Diagnosis CARDIOPULMONARY (VO2) Routine 09/11/2020 2:03 Tetralogy Of Res ults for this EXERCISE TEST PM CDT Fallot (HCC) procedure are in the results section. documented in this encounter Results CARDIOPULMONARY (VO2) EXERCISE TEST (09/11/2020 2:03 PM CDT) Specimen (Source) Anatomical Collection Method Collection Time Re ceived Time Location / / Volume Laterality 09/11/2020 12:27 PM CDT Narrative [facility] CV MERGE - 09/11/2020 3:49 PM CDT This result has an attachment that is no t available. See PDF For Result Procedure Note Eldon Lux M.D. - 09/11/2020Forma tting of this note might be different from the original. See PDF For Result Raman Adams, M.P.H. CV STRESS PROCEDURES Performing Organization Address City/State/ZIP Code Phon e Number [facility] CV MERGE [facility] MERGE NA documented in this encounter Visit Diagnoses Diagnosis Tetralogy Of Fallot (HCC) documented in this encounter Additional Health Concerns Assessment Noted Time PHQ-9 Depression Total Score: 09/10/2020 9:51 AM CD T documented as of this encounter
--- OUTSIDE RECORDS SUMMARY | 2022-01-20 19:47 | XMS_ITS | Encounter Summary ---
:1995 Author Organization [facility] Address [address] [place] [address] Care Team Providers Name Role Phone Unavailable Primary Care Provider Unavailable Encounter Details Date Type Department Care Team Description 05/05/2021 Clinical Communication Department of Johnie Raman Cardiovascular Medicine Prosper BerriosSJasper, in [facility] M.P.H [address] [facility] [address] [place] [phone] Social History Tobacco Use Types Packs/Day Years [...] 09/06/2020 relatives? How often do you attend baptism or evangelical Never 09/06/2020 services? Do you belong to any clubs or organizations such Yes 09/06/2020 as baptism groups, unions, fraternal or athletic groups, or [...] place to sleep or slept in a nursing home (including now)? Education Answer Date Recorded What is the highest level of school you have GED or equivale nt 09/05/2020 completed or the highest degree you have received? Sex Assigned at Date Recorded Not on file documented as of this encounter Miscellaneous Notes Telephone Encounter - Raman Jett M.B.BJasperS., M.P.H. 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
--- OUTSIDE RECORDS SUMMARY | 2022-01-20 19:47 | XMS_ITS | Encounter Summary ---
:1995 Author Organization [facility] Address [address] [place] [address] Care Team Providers Name Role Phone Unavailable Primary Care Provider Unavailable Reason for Referral Outpatient (Routine) - Authorized Specialty Diagnoses / Procedures Referred By Contact Refer red To Contact Integrative Medicine Diagnoses Postural Tachycardia Syndrome With Orthostatic Hypotension Raman Jett, [facility] Bryan, M.P.H. 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 Syndrome With in [facility] bola [address] [facility] Orthostatic [address] [place] [address] Hypotension ([place] [phone] Dx) [phone] Social History Tobacco Use Types Packs/Day Years [...] 09/06/2020 relatives? How often do you attend mosque or baptism Never 09/06/2020 services? Do you belong to any clubs or organizations such Yes 09/06/2020 as mosque groups, unions, fraternal or athletic groups, or [...] on file documented as of this encounter Plan of Treatment Scheduled Referrals Name Type Priority Associated Diagnoses Order [facility] Integrative Medicine Outpatient Referral Routine Postural Tach ycardia Expected: - POTS consult Syndrome With 09/11/2021 (clinic) Orthostatic (Approximate), Hypotension Expires: 08/03/2022 documented as of this encounter Visit Diagnoses Diagnosis Postural Tachycardia Syndrome With Ortho static Hypotension - Primary documented in this encounter Additional Health Concerns Assessment Noted Time PHQ-9 Depression Total Score: 19 09/10/2020 9:51 AM CD T documented as of this encounter
--- OUTSIDE RECORDS SUMMARY | 2022-01-20 19:47 | XMS_ITS | Encounter Summary ---
:1995 Author Organization [facility] Address [address] [place] [address] Care Team Providers Name Role Phone Unavailable Primary Care Provider Unavailable Reason for Referral Outpatient (Routine) - Closed Specialty Diagnoses / Procedures Referred By Contact Refer red To Contact Diagnoses Anomaly Heart Congenital (HCC) Will Bourgeois M.D. [facility] Procedures ECG Ambulatory Real Time Cardiac Monitoring [address] [place], [place] [address] Referral ID Status Reason Start Date Expiration Date Visits Requ ested Visits Authorized [id number] Closed 09/11/2020 09/11/2021 1 1 Reason for Visit Outpatient (Routine) - Closed Specialty Diagnoses / Procedures Referred By Contact Refer red To Contact Diagnoses Anomaly Heart Congenital (HCC) Will Bourgeois M.D. 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 Do you belong to [...] place to sleep or slept in a fci (including now)? Education Answer Date Recorded What [...] Procedure Name Priority Date/Time Associated Comments Diagnosis ECG AMBULATORY REAL Routine 10/10/2020 3:46 AM Anomaly Heart R esults for this TIME CARDIAC CDT Congenital (HCC) procedure a re in MONITORING the results section. documented in this encounter Results ECG AMBULATORY REAL TIME CARDIAC MONITORING (10/10/2020 3:46 AM CDT) P athologist Signature Min Heart Rate 46 bpm [facility] Max Heart Rate 164 bpm [facility] Mean Heart 79 bpm [facility] Rate VE Total Beats 4,800 count [facility] VE Percent 0.16% percent [facility] Beats SVE Total 425 count [facility] Beats SVE Percent <1% percent [facility] Beats Holter Pauses 0 count [facility] AF Count 0 count [facility] AF Duration 0 sec duration [facility] AF Sidney 0% percent [facility] VT Runs 1 count [facility] SVT Runs 0 count [facility] Symptom Count 139 count [facility] Specimen (Source) Anatomical Collection Method Collection Time Re ceived Time Location / / Volume Laterality 09/11/2020 2:07 PM CDT Narrative AAMIR BACON - 10/13/2020 11:11 AM CD T 1. The patient was monitored from 09/11/2020 to 10/10/2020 with a total monitoring time of 26 days 6 hr 1 8 min. The baseline rhythmwas sinus with sinus arrhythmia. The heart rate varied from 46 to 164 BPM. The average heart rate was 79 BPM. 2. Rare PVC's occurred singly, interpolated and fused. There were 4,800 PVC's recorded with a PVC burden of 0.16%. Four episodes of ventricular tachycardia occurred with the longest duration being 10 beats. The maxim um rate of VT was 146 BPM.Note: The epis odes of VT occurred during a symptomatic event.3. Rare single and paired PAC's were noted. There were 425 PAC's recorded with a PAC burden of <1%. 4. The patient reported 139 symptomatic events with symptoms of dizziness, light headed and chest pain. During these events, the rhythm was sinu s with sinus arrhythmia. The heart rate varied from 58 to 153 BPM. ??Single PVC's and runs of VT werepresent.Latcher: BERT Newell/BERT Suárez Procedure Note Pranay Sierra M.B.B.S. - 021 1. The patient was monitored from 09/12/19 to 10/10/2020 with a total monitoring time of 26 days 6 hr 18 min. The baseline rhythmwas sinus with sinus arrhythmia. The heart rate varied from 46 to 164 BPM. The average heart rate was 79 BPM. 2. Rare PVC's occurred singly, interpolated and fused. There were 4,800 PVC's recorded with a PVC burden of 0.16%. Four episodes of ventricular tachycardia occurred with the longest duration being 10 beats. The maximum rate of VT was 146 BPM.Note: The episodes of VT occurred during a symptomatic event.3. Rare single and paired PAC's were noted. There were 425 PAC's recorded with a PAC burden of <1%. 4. The patient reported 139 symptomatic events with symptoms of dizziness, light headed and chest pain. During these events, the rhythm was sinu s with sinus arrhythmia. The heart rate varied from 58 to 153 BPM. Single PVC's and runs of VT werepresent.Latcher: BERT Newell/BERT Suárez Will Bourgeois M.D. CV CARDIAC SERVICES PROCEDUR [facility] Organization Address City/State/ZIP Code Phon e Number [facility] NA documented in this encounter Visit Diagnoses Diagnosis Anomaly Heart Congenital (HCC) documented in this encounter Additional Health Concerns Assessment Noted Time PHQ-9 Depression Total Score: 19 09/10/2020 9:51 AM CD T documented as of this encounter
--- OUTSIDE RECORDS SUMMARY | 2022-01-20 19:48 | XMS_ITS | Encounter Summary ---
:1995 Author Organization [facility] Address [address] [place] [address] Care Team Providers Name Role Phone Shannan Santana MD Primary Care Provider Encounter Details Date Type Department Care Team Description 01/07/2022 Notes/Orders [facility], Saba Abarca, Services-SMOKING PIPES CLEANER [id number] [place] [address], [address] [place] [address] [address] [place] [address] [place], [place] [phone] (Wo rk) Social History Tobacco Use Types Packs/Day Years Used Date Smoking Tobacco: Never Smokeless Tobacco: Never Alcohol Use Standard Drinks/Week Comments Never 0 (1 standard drink = 0.6 oz pure alcoho l) Sex Assigned at Date Recorded Female 10/26/2020 7:23 AM CDT documented as of this encounter Plan of Treatment Not on filedocumented as of this encounter Visit Diagnoses Not on filedocumented in this encounter Care Teams Auto Porter Relationship Specialty Start Date End Date Shannan Santana MD PCP - General Internal 07/30/21 [id number] [address] [facility] Medicine/Pediatrics [facility] [id number] documented as of this encounter
--- OUTSIDE RECORDS SUMMARY | 2022-01-20 19:48 | XMS_ITS | Encounter Summary ---
:1995 Author Organization [facility] Address [address] [place] [address] Care Team Providers Name Role Phone Unavailable Primary Care Provider Unavailable Encounter Details Date Type Department Care Team Description 09/10/2020 Hospital Encounter Department of Raman Jett [facility] Laboratory Medicine M.B.B.S., M. P.H. (HCC) and Pathology, [address] [place] [address] [phone] [place] [address] (Work) [place] [address] Social History Tobacco Use Types Packs/Day Years [...] 09/06/2020 relatives? How often do you attend confucianism or evangelical Never 09/06/2020 services? Do you belong to any clubs or organizations such Yes 09/06/2020 as confucianism groups, unions, fraternal or athletic groups, or [...] Associated Comments Diagnosis LIPID PANEL, S Routine 09/10/2020 9:00 Tetralogy Of Results fo r this AM CDT [place] (HCC) procedure are i n the results section. NT-PRO B-TYPE Routine 09/10/2020 9:00 Tetralogy Of Results for this NATRIURETIC PEPTIDE AM CDT [place] (HCC) procedur e are in (BNP), S the results section. CBC WITH DIFFERENTIAL, B Routine 09/10/2020 9:00 Tetralogy Of Results for this AM CDT [place] (HCC) procedure are i n the results section. URIC ACID, S/P Routine 09/10/2020 9:00 Tetralogy Of Results fo r this AM CDT [place] (HCC) procedure are i n the results section. BUN (BLOOD UREA Routine 09/10/2020 9:00 Tetralogy Of Results f or this NITROGEN), S/P AM CDT [place] (HCC) procedure are in the results section. ASPARTATE Routine 09/10/2020 9:00 Tetralogy Of Results for this AMINOTRANSFERASE (AST), AM CDT [place] (HCC) proc edure are in S/P the results section. THYROID-STIMULATING Routine 09/10/2020 9:00 Tetralogy Of Resul ts for this HORMONE-SENSITIVE AM CDT [place] (HCC) procedure are in (S-TSH) the results section. SODIUM, S/P Routine 09/10/2020 9:00 Tetralogy Of Results for this AM CDT [place] (HCC) procedure are i n the results section. PROTEIN, TOTAL, S/P Routine 09/10/2020 9:00 Tetralogy Of Resul ts for this AM CDT Fall[place] (HCC) procedure are i n the results section. POTASSIUM, S/P Routine 09/10/2020 9:00 Tetralogy Of Results fo r this AM CDT Fallot (HCC) procedure are i n the results section. ALKALINE PHOSPHATASE, Routine 09/10/2020 9:00 Tetralogy Of Res ults for this S/P AM CDT [place] (HCC) procedure are i n the results section. GLUCOSE, FASTING, S/P Routine 09/10/2020 9:00 Tetralogy Of Res ults for this AM CDT Fallot (HCC) procedure are i n the results section. CREATININE WITH EGFR, Routine 09/10/2020 9:00 Tetralogy Of Res ults for this S/P AM CDT Fallot (HCC) procedure are i n the results section. BILIRUBIN DIRECT, S/P Routine 09/10/2020 9:00 Tetralogy Of Res ults for this AM CDT Fallot (HCC) procedure are i n the results section. BILIRUBIN, TOT, S/P Routine 09/10/2020 9:00 Tetralogy Of Resul ts for this AM CDT Fallot (HCC) procedure are i n the results section. ALBUMIN, S/P Routine 09/10/2020 9:00 Tetralogy Of Results for this AM CDT Fallot (HCC) procedure are i n the results section. PROTHROMBIN TIME (PT), P Routine 09/10/2020 8:59 Tetralogy Of Results for this AM CDT Fallot (HCC) procedure are i n the results section. documented in this encounter Results Protein, Total (09/10/2020 9:00 AM CDT) athologist [facility] Protein, Total, 7.1 6.3 - 7.9 09/10/2020 DTL S g/dL 10:25 AM CDT Specimen Anatomical Collection Method Collection Time Receive d Time (Source) Location / / Volume Laterality Blood (Blood, 09/10/2020 9:00 AM 09/11/19 9:26 Venous) CDT AM CDT Raman Martino., M.P.H. LAB BLOOD ADD-ON Performing Organization Address City/State/ZIP Code Phon e Number [facility] - [address] [place], [place] [address] [facility] [place] [address] [facility] [address] NT-Pro B-Type Natriuretic Peptide (BNP) (09/10/2020 9:00 AM CDT) athologist Signature NT-Pro BNP 63 <=140 pg/mL 09/10/2020 DTL 10:25 AM CDT Comment: NT-proBNP values less than 300 pg/mL hav e a 99% negative predictive value for excluding acute congestive heart diane lure. A cutoff of 1200 pg/mL for patients with an eGFR<60 yields a diagno stic sensitivity and specificity of 89% and 72% for acute congestive heart f ailure. ??NT-proBNP values greater than 450 pg/mL are consistent with CHF i n adults under 50 years of age. Specimen Anatomical Collection Method Collection Time Receive d Time (Source) Location / / Volume Laterality Blood (Blood, 09/10/2020 9:00 AM 09/11/19 9:26 Venous) CDT AM CDT Raman Adams, M.P.H. LAB BLOOD ADD-ON Performing Organization Address City/[facility] Phon e Number [facility] [address] [place], [place] [address] [place] [id number] [place] [address] BUN (Blood Urea Nitrogen) (09/10/2020 9:00 AM CDT) athologist Signature BUN (Blood Urea 12 6 - 21 09/10/2020 DTL Nitrogen), S mg/dL 10:25 AM CDT Specimen Anatomical Collection Method Collection Time Receive d Time (Source) Location / / Volume Laterality Blood (Blood, 09/10/2020 9:00 AM 09/11/19 9:26 Venous) CDT AM CDT Raman Adams, M.P.H. LAB BLOOD ADD-ON Performing Organization Address City/State/[facility] Phon e Number [facility] [address] [place], [place] [address] Creatinine with Estimated GFR (09/10/2020 9:00 AM CDT) athologist Signature Creatinine 0.88 0.59 - 09/10/2020 DTL 1.04 mg/dL 10:17 AM CDT eGFR-Non >90 >=60 09/10/2020 DTL Black/ mL/min/BSA 10:17 AM CDT Vietnamese Comment: ----ADDITIONAL INFORMATION---- Estimated GFR calculated using the 2009 CKD_EPI creatinine equation. eGFR-Black/ >90 >=60 mL/min/BSA 2020 10:17 AM CDT DT Comment: ----ADDITIONAL INFORMATION---- Estimated GFR calculated using the 2009 CKD_EPI creatinine equation. Specimen Anatomical Collection Method Collection Time Receive d Time (Source) Location / / Volume Laterality Blood (Blood, 09/10/2020 9:00 AM 09/11/19 9:26 Venous) CDT AM CDT Raman Adams, M.P.H. LAB BLOOD ADD-ON Performing Organization Address City/[facility] Phon e Number [facility] - [address] [place], [place] [address] [place] [address] Albumin (09/10/2020 9:00 AM CDT) P athologist Signature Albumin, S 4.5 3.5 - 5.0 09/10/2020 DTL g/dL 10:25 AM CDT Specimen Anatomical Collection Method Collection Time Receive d Time (Source) Location / / Volume Laterality Blood (Blood, 09/10/2020 9:00 AM 09/11/19 9:26 Venous) CDT AM CDT Raman Adams, M.P.H. LAB BLOOD ADD-ON Performing Organization Address City/State/[facility] [[email or web address]] Code Phon e Number [facility] - [address] [place] [address] [place] [address] Alkaline Phosphatase (09/10/2020 9:00 AM CDT) P athologist Signature Alkaline 58 35 - 104 09/10/2020 DTL Phosphatase, S U/L 10:25 AM CDT Specimen Anatomical Collection Method Collection Time Receive d Time (Source) Location / / Volume Laterality Blood (Blood, 09/10/2020 9:00 AM 09/11/19 9:26 Venous) CDT AM CDT Raman Adams, M.P.H. LAB BLOOD ADD-ON Performing Organization Address City/[facility] Phon e Number [facility] - [address] AST (Aspartate Aminotransferase) (09/10/2020 9:00 AM CDT) Patholo gist Method Time Signature Aspartate 18 8 - 43 09/10/2020 DTL Aminotransferase U/L 10:25 AM CDT (AST), S Specimen Anatomical Collection Method Collection Time Receive d Time (Source) Location / / Volume Laterality Blood (Blood, 09/10/2020 9:00 AM 09/11/19 9:26 Venous) CDT AM CDT Raman Adams, M.P.H. LAB BLOOD ADD-ON Performing Organization Address City/[facility] Phon e Number [facility] - [address] Bilirubin, Direct (09/10/2020 9:00 AM CDT) P athologist Signature Bilirubin, <0.2 0.0 - 0.3 09/10/2020 DTL Direct, S mg/dL 10:25 AM CDT Specimen Anatomical Collection Method Collection Time Receive d Time (Source) Location / / Volume Laterality Blood (Blood, 09/10/2020 9:00 AM 09/11/19 9:26 Venous) CDT AM CDT Raman Adams, M.P.H. LAB BLOOD ADD-ON Performing Organization Address City/[facility] Phon e Number [facility] - [address] Bilirubin, Total (09/10/2020 9:00 AM CDT) P athologist Signature Bilirubin, 0.5 <=1.2 mg/dL 09/10/2020 DTL Total, S 10:25 AM CDT Specimen Anatomical Collection Method Collection Time Receive d Time (Source) Location / / Volume Laterality Blood (Blood, 09/10/2020 9:00 AM 09/11/19 9:26 Venous) CDT AM CDT Raman Adams, M.P.H. LAB BLOOD ADD-ON Performing Organization Address City/[facility] [[email or web address]] Code Phon e Number [facility] - [address] [place], [place] [address] [place] [address] [facility] 200 [facility] Uric Acid (09/10/2020 9:00 AM CDT) P athologist Signature Uric Acid, S 6.0 2.7 - 6.1 09/10/2020 DTL mg/dL 10:25 AM CDT Specimen Anatomical Collection Method Collection Time Receive d Time (Source) Location / / Volume Laterality Blood (Blood, 09/10/2020 9:00 AM 09/11/19 9:26 Venous) CDT AM CDT Raman Adams, M.P.H. LAB BLOOD ADD-ON Performing Organization Address City/[facility] [[email or web address]] Code Phon e Number [facility] - [address] Glucose, Fasting (09/10/2020 9:00 AM CDT) P athologist Signature Glucose, P 99 70 - 100 09/10/2020 DTL mg/dL 10:09 AM CDT Last Intake 1 hr 09/10/2020 DTL 9:26 AM CDT Specimen Anatomical Collection Method Collection Time Receive d Time (Source) Location / / Volume Laterality Blood (Blood, 09/10/2020 9:00 AM 09/11/19 9:26 Venous) CDT AM CDT Raman Adams, M.P.H. LAB BLOOD NON ADD-ON Performing Organization Address City/[facility] [[email or web address]] Code Phon e Number [facility] - [address] [place] [address] [place], [place] [phone] [place] [address] [facility] Potassium (09/10/2020 9:00 AM CDT) athologist Signature Potassium, S 4.3 3.6 - 5.2 09/10/2020 DTL mmol/L 10:25 AM CDT Specimen Anatomical Collection Method Collection Time Receive d Time (Source) Location / / Volume Laterality Blood (Blood, 09/10/2020 9:00 AM 09/11/19 9:26 Venous) CDT AM CDT Raman Adams, M.P.H. LAB BLOOD ADD-ON Performing Organization Address City/[facility] Phon e Number [phone] [place] [address] Sodium (09/10/2020 9:00 AM CDT) athologist Signature Sodium, S 139 135 - 145 09/10/2020 DTL mmol/L 10:25 AM CDT Specimen Anatomical Collection Method Collection Time Receive d Time (Source) Location / / Volume Laterality Blood (Blood, 09/10/2020 9:00 AM 09/11/19 9:26 Venous) CDT AM CDT Raman Adams, M.P.H. LAB BLOOD ADD-ON Performing Organization Address City/State/[facility] [[email or web address]] Code Phon e Number [facility] [address] [place] [address] [place], [place] [phone] [place] [address] S-TSH (Thyroid-Stimulating Hormone - Sensitive) (09/10/2020 9:00 AM CDT) athologist Signature TSH, Sensitive 3.5 0.3 - 4.2 09/10/2020 DTL mIU/L 10:17 AM CDT Specimen Anatomical Collection Method Collection Time Receive d Time (Source) Location / / Volume Laterality Blood (Blood, 09/10/2020 9:00 AM 09/11/19 9:26 Venous) CDT AM CDT Raman Adams, M.P.H. LAB BLOOD ADD-ON Performing Organization Address City/[facility] [[email or web address]] Code Phon e Number [facility] - [address] [place], [place] [phone] [place] [address] [address] [address] [facility] (ABNORMAL) Lipid Panel (09/10/2020 9:00 AM CDT) P athologist Signature Cholesterol, 115 mg/dL 09/10/2020 DTL Total 10:17 AM CDT Comment: ----REFERENCE VALUE---- Desirable: < 200 Borderline high: 200 - 239 High: > or = 240 Triglycerides 53 mg/dL 09/10/2020 10:17 AM CDT DT L Comment: ----REFERENCE VALUE---- Normal: <150 Borderline high: 150-199 High: 200-499 Very high: > or =500 Cholesterol, HDL, S 45 (L) >=50 mg/dL 09/10/2020 10:17 AM CDT DTL Calculated LDL 59 mg/dL 09/10/2020 10:17 AM CDT D TL Comment: ----REFERENCE VALUE---- Desirable: <100 Above Desirable: 100-129 Borderline high: 130-159 High: 160-189 Very high: > or =190 Cholesterol, Non-HDL, Calculated 70 mg/dL 021 10:17 AM CDT DTL Comment: ----REFERENCE VALUE---- Desirable: <130 Above Desirable: 130-159 Borderline high: 160-189 High: 190-219 Very high: > or =220 Specimen Anatomical Collection Method Collection Time Receive d Time (Source) Location / / Volume Laterality Blood (Blood, 09/10/2020 9:00 AM 09/11/19 9:26 Venous) CDT AM CDT Raman Adams, M.P.H. LAB BLOOD ADD-ON Performing Organization Address City/State/[facility] [[email or web address]] Code Phon e Number [facility] - [address] [place], [place] [address] [facility] [place] [address] Laboratories-[place] [address] [address] [facility] (ABNORMAL) CBC with Differential, Blood (09/10/2020 9:00 AM CDT) [facility] gist Method Time Signature Hemoglobin 12.5 11.6 - 09/10/2020 DTL 15.0 g/dL 9:41 AM CDT Hematocrit 38.6 35.5 - 09/10/2020 DTL 44.9 % 9:41 AM CDT Erythrocytes 4.24 3.92 - 09/10/2020 DTL 5.13 9:41 AM CDT x10(12)/L MCV 91.0 78.2 - 09/10/2020 DTL 97.9 fL 9:41 AM CDT RBC Distrib Width 11.8 (L) 12.2 - 09/10/2020 DTL 16.1 % 9:41 AM CDT Platelet Count 273 157 - 371 09/10/2020 DTL x10(9)/L 9:41 AM CDT Leukocytes 7.3 3.4 - 9.6 09/10/2020 DTL x10(9)/L 9:41 AM CDT Neutrophils 4.65 1.56 - 09/10/2020 DTL 6.45 9:41 AM CDT x10(9)/L Lymphocytes 2.05 0.95 - 09/10/2020 DTL 3.07 9:41 AM CDT x10(9)/L Monocytes 0.45 0.26 - 09/10/2020 DTL 0.81 9:41 AM CDT x10(9)/L Eosinophils 0.08 0.03 - 09/10/2020 DTL 0.48 9:41 AM CDT x10(9)/L Basophils 0.03 0.01 - 09/10/2020 DTL 0.08 9:41 AM CDT x10(9)/L Specimen Anatomical Collection Method Collection Time Receive d Time (Source) Location / / Volume Laterality Blood (Blood, 09/10/2020 9:00 AM 09/11/19 21 9:27 Venous) CDT AM CDT Raman Martino., M.P.H. LAB BLOOD ADD-ON Performing Organization Address City/State/ZIP Code Phon e Number [facility] - [address] [place], [place] [address] [facility] [place] [address] [facility] [address] (ABNORMAL) Prothrombin Time (PT) (09/10/2020 8:59 AM CDT) [facility] gist Method Time Signature Prothrombin 14.9 (H) 9.4 - 12.5 09/10/2020 DTL Time, P sec 10:17 AM CDT INR 1.4 0.9 - 1.1 09/10/2020 DTL 10:17 AM CDT Comment: ----ADDITIONAL INFORMATION---- Standard intensity warfarin therapeutic range: 2.0 to 3.0 ?? High intensity warfarin therapeutic rang e: 2.5 to 3.5 Specimen Anatomical Collection Method Collection Time Receive d Time (Source) Location / / Volume Laterality Blood (Blood, 09/10/2020 8:59 AM 09/11/19 9:28 Venous) CDT AM CDT Raman Martino., M.P.H. LAB BLOOD ADD-ON Performing Organization Address City/State/ZIP Code Phon e Number [facility] - [address] [place] [address] [facility] [address] [facility] [address] [facility] documented in this encounter Visit Diagnoses Diagnosis Tetralogy Of Fallot (HCC) documented in this encounter Additional Health Concerns Infection Onset Date Last Indicated Resolved Time COVID19 Pending 09/10/2020 09/10/2020 09/10/2020 12:46 PM CDT Assessment Noted Time PHQ-9 Depression Total Score: 19 09/10/2020 9:51 AM CD T documented as of this encounter
--- OUTSIDE RECORDS SUMMARY | 2022-01-20 19:48 | XMS_ITS | Encounter Summary ---
:1995 Author Organization [facility] Address [address] [place] [address] Care Team Providers Name Role Phone Unavailable Primary Care Provider Unavailable Encounter Details Date Type Department Care Team Description 09/10/2020 Hospital Encounter Department of Raman Jett Te tralogy Of Fallot Radiology, Ned Adams, M. P.H. ([facility], in [address] [place] [phone] [place] [address] [place], [place] (Work) [phone] Social History Tobacco Use Types Packs/Day Years [...] 09/06/2020 relatives? How often do you attend advent or presybeterian Never 09/06/2020 services? Do you belong to any clubs or organizations such Yes 09/06/2020 as advent groups, unions, fraternal or athletic groups, or [...] place to sleep or slept in a retirement (including now)? Education Answer Date Recorded What [...] Procedure Name Priority Date/Time Associated Comments Diagnosis DX CHEST AP OR PA RAD - Routine 09/10/2020 3:15 Tetralogy Of Result s for this AND LATERAL 2 (most inpatients PM CDT Fallot (HCC) procedure are in VIEWS and all the results outpatients) section. documented in this encounter Results DX Chest AP or PA and Lateral 2 Views (09/10/2020 3:15 PM CDT) Anatomical Region Laterality Modality Chest, Thoracic RST LOS, Thoracic ARZ LOS, Thoracic N/A Digital Radiography FLA LOS Specimen (Source) Anatomical Collection Method Collection Time Re ceived Time Location / / Volume Laterality 09/10/2020 3:21 PM CDT Impressions 09/10/2020 3:23 PM CDT Sternotomy. Right aortic arch. Heart size and pulmonary vascularity. 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 No change since ou tside chest 07/10/2020. Narrative 09/10/2020 3:23 PM CDT EXAM: ??DX CHEST AP OR PA AND LATERAL 2 VIEWS Procedure Note Bonilla Velazquez M.D. - 09/10/2020Forma tting of this note might be different from the original. EXAM: DX CHEST AP OR PA AND LATERAL 2 EWS IMPRESSION: Sternotomy. Right aortic arch. Heart siz e and pulmonary vascularity. 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 No change since ou tside chest 07/10/2020. Raman Adams, M.P.H. IMG DIAGNOSTIC IMAGI NG PROCEDURES documented in this encounter Visit Diagnoses Diagnosis Tetralogy Of Fallot (HCC) documented in this encounter Additional Health Concerns Assessment Noted Time PHQ-9 Depression Total Score: 19 09/10/2020 9:51 AM CD T documented as of this encounter
--- OUTSIDE RECORDS SUMMARY | 2022-01-20 19:48 | XMS_ITS | Encounter Summary ---
:1995 Author Organization [facility] Address [address] [place] [address] Care Team Providers Name Role Phone Unavailable Primary Care Provider Unavailable Reason for Visit Reason Comments Review of OSM Encounter Details Date Type Department Care Team Description 07/28/2020 Documentation Department of Erika Lacy, Review of OSM Cardiovascular Medicine in [place], [place] [address] [facility] [address] [place] [phone] Social History Tobacco Use Types Packs/Day Years Used Date Smoking Tobacco: Never Assessed Alcohol Habits Answer Date Recorded How often [...] 09/06/2020 relatives? How often do you attend anabaptism or jew Never 09/06/2020 services? Do you belong to any clubs or organizations such Yes 09/06/2020 as anabaptism groups, unions, fraternal or athletic groups, or [...] a [place] [facility] (including now)? Sex Assigned at Date Recorded Not on file documented as of this encounter Progress Notes Erika Lacy R.N. - 07/28/2020 9:30 AM CDT REFERRAL SOURCE Self CHIEF COMPLAINT / REASON FOR VISIT Review of outside material, patient not seen. Tetralogy of Fallot HISTORY OF PRESENT ILLNESS Ms. Medina has been seen locally for evaluation of atypical chest pain and shortness of breath - she self refers for further evaluation. PAST MEDICAL HISTORY TOF s/p repair at [address] Swift [facility]1998 Dr. 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 Migraines MEDICATIONS Mirena IUD Metrogel IMAGING DIAGNOSTIC REVIEW Transthoracic echocardiogram 07/27/2020 There is no?? residual ventricular level shunt. Normal right and left ventricular size and??systolic function. There is mild flow acceleration across the pulmonary valve,??peak gradient of 17 mm Hg. There is no significant pulmonary valve?? insufficiency. Mild (1+) tricuspid valve insufficiency. Normal right??ventricular systolic pressure.? RECOMMENDATIONS TO APPOINTMENT OFFICE Please schedule with any congenital provider, new patient testing. OSM team Please request surgical records - 10 months old - I think at the [facility] Please request echo images from 07/27/2020 Please request ECG rhythm strip from 07/27/2020 Please request Holter monitor rhythm strips. documented in this encounter Plan of Treatment Not on filedocumented as of this encounter Visit Diagnoses Not on filedocumented in this encounter
--- OUTSIDE RECORDS SUMMARY | 2022-01-20 19:48 | XMS_ITS | Encounter Summary ---
:1995 Author Organization [facility] Address [address], [place] [address] Care Team Providers Name Role Phone Shannan Santana MD Primary Care Provider Encounter Details Date Type Department Care Team Description 11/26/2021 Telemedicine Shannan Hough, Abdomina l pain, unspecified abdominal location (Primary Dx); Medicine/Pediatrics MD H/O ovarian cystectomy [address] [facility], [address] [facility] [address] [place] [address] [place], [place] [id number] [phone] Social History Tobacco Use Types Packs/Day Years Used Date Smoking Tobacco: Never Smokeless Tobacco: Never Alcohol Use Standard Drinks/Week Comments Never 0 (1 standard drink = 0.6 oz pure alcoho l) Sex Assigned at Date Recorded Female 10/26/2020 7:23 AM CDT documented as of this encounter Progress Notes Shannan Santana MD - 11/26/2021 12:20 PM CDT Subjective: Today's visit with Fabian was conducted as a scheduled video visit. Last visit 10/22. Since then has started a new job. Had a tote fall on her head on 10/30- seen in and diagnosed with concussion. Still has some headaches but improving and manageable. She is back to work now. Has longstanding back pain- reports back is more bothersome this last week. Has some burning pain but manageable. No weakness, no numb/tingling. Also, notes significant abd pain since last night, feels like her previous ovarian cysts. Had emergency surgery 10/2020 for hemorrhagic cyst. She notes h/o irregular periods, painful and heavy. She was on OCPs but stopped over the summer after breaking up with her boyfriend. Restarted pills this last week. Previously had IUD but taken out due to side effects. Pain is periumbilical, lori lower abd, R>L. Has some nausea and loose stools as well. Has h/o UC and was on mesalamine- has been off med recently. No bloody stools. No urinary symptoms. Took a leftover hydrocodone but doesn't like how she feels with pain meds. She wonders about a letter for work today Objective: There were no vitals taken for this visit. Gen: Awake, alert, NAD HEENT: Moist mucus membranes Resp: Breathing comfortably, speaking in full sentences Assessment/Plan: Abdominal pain, unspecified abdominal location H/O ovarian cystectomy - Main concern today for abd pain- diff dx includes recurrent ovarian cyst, flare of UC, appendicitis, cystitis. Denies possibility of . Does not appear toxic and is eating/drinking. Will continue pain control, fluids, and monitor. If worsening, should be seen in person for potential imaging and further management. Letter provided for work. Shannan Santana MD documented in this encounter Plan of Treatment Not on filedocumented as of this encounter Visit Diagnoses Diagnosis Abdominal pain, unspecified abdominal lo cation - Primary H/O ovarian cystectomy Personal history of surgery to other org ans documented in this encounter Care Teams Repack Room Worker Relationship Specialty Start Date End Date Shannan Santana MD PCP - General Internal 07/30/21 [id number] [address] [facility] Medicine/Pediatrics [place] [id number] documented as of this encounter
--- OUTSIDE RECORDS SUMMARY | 2022-01-20 19:48 | XMS_ITS | Encounter Summary ---
:1995 Author [facility] Address [address], [place] [address] Care Team Providers Name Role Phone hSannan Santana MD Primary Care Provider Reason for Visit Reason Comments Abdominal Pain Encounter Details Date Type Department Care Team Description 01/13/2022 Nurse Triage Cano Nurse Line Shannan Santana MD Abdominal Pain [phone] [facility] [address] [address] [facility] [place] [address] [place] [address] [phone] Social History Tobacco Use Types Packs/Day Years Used Date Smoking Tobacco: Never Smokeless Tobacco: Never Alcohol Use Standard Drinks/Week Comments Never 0 (1 standard drink = 0.6 oz pure alcoho l) Sex Assigned at Date Recorded Female 10/26/2020 7:23 AM CDT documented as of this encounter Nursing Notes Danny Tellez RN - 01/13/2022 1:47 AM CDT Reason for Disposition ? ? [1] MILD-MODERATE pain AND [2] constant AND [3] present > 2 hours Patient calling due to having an 6 cm overian cyst on the left side she was seen at [facility] on 01/03/22 & & was having abdominal pain that comes & goes. Tonight the pain is constant for the past 4 hrs. Pain rated at a 4-5/10. No fever. Wants to know if she should go to ER. Protocols used: Abdominal Pain - [id number] documented in this encounter Plan of Treatment Not on filedocumented as of this encounter Visit Diagnoses Not on filedocumented in this encounter Care Teams Pc Maintenance Technician Relationship Specialty Start Date End Date Shannan Santana MD PCP - General Internal 07/30/21 [address] [address] Medicine/Pediatrics [place] [address] documented as of this encounter
--- OUTSIDE RECORDS SUMMARY | 2022-01-20 19:48 | XMS_ITS | Encounter Summary ---
:1995 Author Organization [facility] Address [address] [place] [address] Care Team Providers Name Role Phone Shannan Santana MD Primary Care Provider Reason for Visit Reason Comments CYST Encounter Details Date Type Department Care Team Description 01/02/2022 Nurse Triage Cano Nurse Line Shannan Santana MD CYST [address] [facility] [address] [address] [facility] [place] [address] [place] [address] [phone] Social History Tobacco Use Types Packs/Day Years Used Date Smoking Tobacco: Never Smokeless Tobacco: Never Alcohol Use Standard Drinks/Week Comments Never 0 (1 standard drink = 0.6 oz pure alcoho l) Sex Assigned at Date Recorded Female 10/26/2020 7:23 AM CDT documented as of this encounter Nursing Notes Amanda Colorado RN - 01/02/2022 9:39 PM CDT Spoke to pt. Seen at [facility] on (3 days ago). Found a 6 cm ovarian cyst. Pain was controlled without medication until today. Pain 9/10, took Percocet a few hours ago, pain now 3-4/10. Started having vaginal bleeding today. Unsure when her menstrual cycle should begin. Changing tampon/pad every 6 hours. Blood does have clear/fournier/white slimy discharge mixed in. Strong odor. Slightly nauseated. Took Zofran. Started feeling really fatigued 2 hours ago. Denies fever, dizziness, or lightheadedness. Has OB appt tomorrow. Wondering if she needs to go to ER. RN paged pierce HERNANDES for [facility]. Advised ok to wait until appt tomorrow. Updated pt, pt verbalized understanding. Problem list reviewed as related to this call. Reason for Disposition Passed tissue (e.g., hess-white) Protocols used: Vaginal Bleeding - [id number] documented in this encounter Plan of Treatment Not on filedocumented as of this encounter Visit Diagnoses Not on filedocumented in this encounter Care Teams Carriage Dogger Relationship Specialty Start Date End Date Shannan Santana MD PCP - General Internal 07/30/21 [address] [address] [facility] Medicine/Pediatrics [place] [id number] documented as of this encounter
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
--- OUTSIDE RECORDS SUMMARY | 2022-01-20 19:48 | XMS_ITS | Encounter Summary ---
:1995 Author Organization [email or web address] Address [address], [place] [address] Care Team Providers Name Role Phone Shannan Santana MD Primary Care Provider Reason for Visit Reason Comments HEADACHE,MIGRAINE Encounter Details Date Type Department Care Team Description 10/30/2021 Nurse Triage Cano Nurse Line Shannan Santana, HEADACHE,MIGRAINE [address] [facility] [address] [place] [address] [place] [address] [phone] (Wo rk) Social History Tobacco Use Types Packs/Day Years Used Date Smoking Tobacco: Never Smokeless Tobacco: Never Sex Assigned at Date Recorded Female 10/26/2020 7:23 AM CDT documented as of this encounter Nursing Notes Coty Muir RN - 10/30/2021 12:57 PM CDT Reason for Disposition Severe headache Protocols used: Head [id number] Patient calls. She had a 30 lbs tote fall on her head at work yesterday. Today, she has a migraine headache, rates 5 on a scale 1-10. She describes having ,dizziness and disorientation. Reviewed options of ER or UC. She prefers [facility]. Agrees. Problem list /Medication list reviewed as related to this call. documented in this encounter Plan of Treatment Not on filedocumented as of this encounter Visit Diagnoses Not on filedocumented in this encounter Care Teams Oil Spreader Operator Relationship Specialty Start Date End Date Shannan Santana MD PCP - General Internal 07/30/21 [address] [address] Tellez Medicine/Pediatrics [place] [address] documented as of this encounter
--- OUTSIDE RECORDS SUMMARY | 2022-01-20 19:48 | XMS_ITS | Encounter Summary ---
:1995 Author Organization [facility] Address [address] [place] [address] Care Team Providers Name Role Phone Unavailable Primary Care Provider Unavailable Reason for Referral Outpatient (Routine) - Closed Specialty Diagnoses / Procedures Referred By Contact Refer red To Contact Diagnoses Tetralogy Of Fallot (HCC) Raman Jett, [facility] Procedures Cardiopulmonary (VO2) Exercise Test Bryan, M.P.H. [address] [place] [phone] Referral ID Status Reason Start Date Expiration Date Visits Requ ested Visits Authorized [id number] Closed 08/03/2020 08/03/2021 1 1 utpatient (Routine) - Closed Specialty Diagnoses / Procedures Referred By Contact Refer red To Contact Diagnoses Tetralogy Of Fallot (HCC) Raman Jett, [facility] Procedures ECG 12 Lead Gunner., M.P.H. [address] [place] [address] [phone] Referral ID Status Reason Start Date Expiration Date Visits Requ ested Visits Authorized [id number] Closed 08/03/2020 08/03/2021 1 1 utpatient (Routine) - Closed Specialty Diagnoses / Procedures Referred By Contact Refer red To Contact Diagnoses Tetralogy Of Fallot (HCC) Raman Jett, [facility] Procedures Echo Transthoracic (TTE) - Adult Congenital Bryan, M.P.H. [address] [place] [phone] Referral ID Status Reason Start Date Expiration Date Visits Requ ested Visits Authorized [id number] Closed 08/03/2020 08/03/2021 1 1 utpatient (Routine) - Closed Specialty Diagnoses / Procedures Referred By Contact Refer red To Contact Social Work Diagnoses Tetralogy Of Fallot (HCC) Raman Jett, [facility] Bryan[place] [phone] Referral ID Status Reason Start Date Expiration Date Visits Requ ested Visits Authorized [id number] Closed 08/03/2020 08/03/2021 1 1 Encounter Details Date Type Department Care Team Description 07/31/2020 Clinical [facility] Bryan Berrios, in [facility] M.P.H. [facility] [phone] Social History Tobacco Use Types Packs/Day Years [...] 09/06/2020 relatives? How often do you attend worship or anabaptism Never 09/06/2020 services? Do you belong to any clubs or organizations such Yes 09/06/2020 as worship groups, unions, fraternal or athletic groups, or [...] place to sleep or slept in a intermediate (including now)? Sex Assigned at Date Recorded Not on file documented as of this encounter Plan of Treatment Scheduled Referrals Name Type Priority Associated Diagnoses Order S [facility] [employer] Work - Outpatient Referral Routine Tetralogy Of Fallot Expected: General consult (HCC) 09/11/2020, (clinic) Expires: 08/01/2023 documented as of this encounter Results CARDIOPULMONARY (VO2) EXERCISE TEST [...] Organization Address City/State/ZIP Code Phon e Number CV MERGE CV MERGE NA DX Chest AP or PA and Lateral [...] change since ou tside chest 07/10/2020. Raman Hanks.B.B.S., M.P.H. IMG DIAGNOSTIC IMAGI NG PROCEDURES (TTE) CONGENITAL 2D WITH COLOR AND DOPPLER (09/10/2020 2:48 PM CDT) P athologist Signature Ejection 65 MC CV EIMS Fraction Sinus of 38 MC CV EIMS Valsalva Mid-Ascending 34 MC CV EIMS Aorta MV E Velocity 0.9 MC CV EIMS MV A Velocity 0.7 MC CV EIMS MV E/A 1.29 MC CV EIMS MV e' Velocity 0.16 MC CV EIMS Lateral MV E/e' Lateral 5.6 MC CV EIMS Left ventricular 77 MC CV EIMS stroke volume index Cardiac Output 12.84 MC CV EIMS Cardiac Index 6.23 MC CV EIMS TAPSE 25 MC CV EIMS Tricuspid 0.15 MC CV EIMS Annular S? TR Vmax 3.00 MC CV EIMS RA Pressure 5 MC CV EIMS RV Systolic 41 MC CV EIMS Pressure Aortic valve 5.66 MC CV EIMS area LA Volume Index 35 MC CV EIMS Anatomical Region Laterality Modality Echocardiography Specimen (Source) Anatomical Collection Method Collection Time Re ceived Time Location / / Volume Laterality 09/10/2020 1:32 PM CDT Impressions 09/10/2020 3:00 PM CDT LEFT VENTRICLE: ??Normal left ventricular wall thickness. ??No regional wall motion abnormalities. ??Normal left ventricular filling pressure. ??ATRIA: ??Mildly enlarged left atrial size. ??Left atrial volume index 35 ml/m ^2. ??Mild-moderately enlarged right atrial size. CARDIAC VALVES: ??Trileaflet aortic valv e. ??Normal aortic valve. ??No aortic valve regurgitation. Normal mitral valve. ??Trivial mitral v alve regurgitation. ??OTHER ECHO FINDINGS: ??Borderline enlarged inferior vena cava size with no rmal inspiratory collapse (>50%). ??Mildly enlarged sinus of Valsalva diameter (diameter 38 mm). ??No abdominal aortic aneurysm. ??Normal abdominal aorta Doppler flow pattern. ??No atrial level shunt by color flow imaging. ??No intracardiac mass or thrombus, but the left atrial appenda ge cannot be visualized adequately with transthoracic echo to exclude thrombus in this locatio n. For the complete report, see the Order-L evel Documents. Narrative 09/10/2020 3:00 PM CDT For the complete report, see the Zeto Documents. Final Impressions 1. Previous surgical repair of tetralogy of Fallot, ASD closure, and PDA ligation (e/w, 09-11-98). 2. Status post pulmonary valvotomy. ??Mi ld pulmonary valve stenosis. Mean gradient 11 mmHg. Trivial pulmonary valve regurgitation. 3. Mild-moderately enlarged right ventri cular chamber size with normal systolic function. 4. Estimated right ventricular systolic pressure 41 mmHg (systolic blood pressure 118 mmHg). 5. Moderate-severe tricuspid valve regur gitation. 6. Normal left ventricular chamber size. ??Calculated ejection fraction 65%. 7. Borderline enlarged inferior vena cav a size with normal inspiratory collapse (>50%). 8. Normal right pulmonary artery. ??Left pulmonary artery incompletely visualized. 9. No ventricular level shunt by color f low. 10. Right aortic arch. Procedure Note Mg Sanchez M.D. - 09/10/2020Form atting of this note might be different from the original. For the complete report, see the Zeto Documents. Final Impressions 1. Previous surgical repair of tetralogy of Fallot, ASD closure, and PDA ligation (e/w, 09-11-98). 2. Status post pulmonary valvotomy. Mild pulmonary valve stenosis. Mean gradient 11 mmHg. Trivial pulmonary valve regurgitation. 3. Mild-moderately enlarged right ventri cular chamber size with normal systolic function. 4. Estimated right ventricular systolic pressure 41 mmHg (systolic blood pressure 118 mmHg). 5. Moderate-severe tricuspid valve regur gitation. 6. Normal left ventricular chamber size. Calculated ejection fraction 65%. 7. Borderline enlarged inferior vena cav a size with normal inspiratory collapse (>50%). 8. Normal right pulmonary artery. Left p ulmonary artery incompletely visualized. 9. No ventricular level shunt by color f low. 10. Right aortic arch. Findings LEFT VENTRICLE: Normal left ventricular wall thickness. No regional wall motion abnormalities. Normal left ventricular f illing pressure. ATRIA: Mildly enlarged left atrial size. Left atrial volume index 35 ml/m^2 . Mild-moderately enlarged right atrial size. CARDIAC VALVES: Trileaflet aortic valve. Normal aortic valve. No aortic valve regurgitation. Normal mitral valve. Trivial mitral ema ve regurgitation. OTHER ECHO FINDINGS: Borderline enlarged inferior vena cava size with no rmal inspiratory collapse (>50%). Mildly enlarged sinus of Valsalva diameter (diameter 38 mm). No abdominal aortic aneurysm. Normal abdominal aorta Doppler flow pattern. No atrial le ruchi shunt by color flow imaging. No intracardiac mass or thrombus, but the left atrial appenda ge cannot be visualized adequately with transthoracic echo to exclude thrombus in this locatio n. For the complete report, see the Order-L evel Documents. Raman Adams, M.P.H. CV ECHO PROCEDURES ECG 12 Lead (09/10/2020 11:11 AM CDT) P athologist Signature Ventricular Rate 64 BPM MUSE ECG/Min MT Interval 148 ms MUSE QRSD Interval 132 ms MUSE QT Interval 430 ms MUSE QTC Interval 443 ms MUSE P Julian 9 degrees MUSE R Julian 17 degrees MUSE T Wave Julian 16 degrees MUSE Specimen Anatomical Collection Method Collection Time Receive d Time (Source) Location / / Volume Laterality 09/10/2020 11:11 09/10/2020 AM CDT 11:34 AM CDT Impressions MUSE - 09/10/2020 11:34 AM CDT Normal sinus rhythm with sinus arrhythmia Right bundle branch block with secondary ST-T abnormalities No previous ECGs available Reviewed by BERT Key Narrative This result has an attachment that is no t available. Procedure Note Speedy Rogers M.D. - 09/10/2020Formatti ng of this note might be different from the original. IMPRESSION: Normal sinus rhythm with sinus arrhythmi a Right bundle branch block with secondary ST-T abnormalities No previous ECGs available Reviewed by BERT Key Raman Adams, M.P.H. ECG ORDERABLES Performing Organization Address City/State/ZIP Code Phon e Number MUSE MUSE NA SARS CoV-2 RNA, PCR, Varies Asymptomatic (09/10/2020 9:09 AM CDT) Patholo gist Method Time Signature SARS CoV-2 Swab, 09/10/2020 DTL RNA, PCR, Nasopharynx 12:45 PM Source CDT SARS CoV-2 Undetected Undetected 09/10/2020 DTL RNA, PCR 12:45 PM CDT Comment: SARS-CoV-2 RNA absent. This [...] Drug Administration an d is used per compressor stations superintendent's instructions. Performance characteristics were verified by [facility] in a manner consistent with CLIA requirements. Visit the CDC website: https://www.cdc.g ov/coronavirus/ for the most recent guidelines on Coron avirus testing. Fact Sheet for Healthcare Providers: https://www.fda.gov/media/528221/downloa d Fact Sheet for Patients: https://www.fda.gov/media/658347/downloa d Specimen Anatomical Collection Method Collection Time Receive d Time (Source) Location / / Volume Laterality Varies 09/10/2020 9:09 AM 9:44 (Nasopharynx) CDT AM CDT Raman Martino., M.P.H. LAB MICROBIOLOGY - G ENERAL ORDERABLES Performing Organization Address City/[facility]/ZIP Code Phon e Number [facility] - 200 [place], [place] [address] [place] [address] [address] Protein, Total (09/10/2020 9:00 AM CDT) athologist Signature Protein, Total, 7.1 6.3 - 7.9 09/10/2020 DTL S g/dL 10:25 AM CDT Specimen Anatomical Collection Method Collection Time Receive d Time (Source) Location / / Volume Laterality Blood (Blood, 09/10/2020 9:00 AM 09/11/19 9:26 Venous) CDT AM CDT Raman Martino., M.P.H. LAB BLOOD ADD-ON Performing Organization Address City/[facility]/ZIP Code Phon e Number [facility] - [id number] [place] [address] NT-Pro B-Type Natriuretic Peptide (BNP) (09/10/2020 9:00 [...] Organization Address City/State/ZIP Code Phon e Number [facility] - [address] BUN (Blood Urea Nitrogen) (09/10/2020 9:00 AM CDT) athologist Signature BUN (Blood Urea 12 6 - 21 09/10/2020 DTL Nitrogen), S mg/dL 10:25 AM CDT Specimen Anatomical Collection Method Collection Time Receive d Time (Source) Location / / Volume Laterality Blood (Blood, 09/10/2020 9:00 AM 09/11/19 9:26 Venous) CDT AM CDT Raman ChengS., M.P.H. LAB BLOOD ADD-ON Performing Organization Address City/State/ZIP Code Phon e Number [facility] - [address] Creatinine with Estimated GFR (09/10/2020 9:00 AM CDT) athologist Signature Creatinine 0.88 0.59 - 09/10/2020 DTL 1.04 mg/dL 10:17 AM CDT eGFR-Non >90 >=60 09/10/2020 DTL Black/ mL/min/BSA 10:17 AM CDT Burkinan Comment: ----ADDITIONAL INFORMATION---- Estimated GFR calculated using the 2009 CKD_EPI creatinine equation. eGFR-Black/ >90 >=60 mL/min/BSA 2020 10:17 AM CDT DTL Comment: ----ADDITIONAL INFORMATION---- Estimated GFR calculated using the 2009 CKD_EPI creatinine equation. Specimen Anatomical Collection Method Collection Time Receive d Time (Source) Location / / Volume Laterality Blood (Blood, 09/10/2020 9:00 AM 09/11/19 9:26 Venous) CDT AM CDT Raman Martino., M.P.H. LAB BLOOD ADD-ON Performing Organization Address City/[facility] Phon e Number [facility] - [address] Albumin (09/10/2020 9:00 AM CDT) athologist [facility] Albumin, S 4.5 3.5 - 5.0 09/10/2020 DTL g/dL 10:25 AM CDT Specimen Anatomical Collection Method Collection Time Receive d Time (Source) Location / / Volume Laterality Blood (Blood, 09/10/2020 9:00 AM 09/11/19 9:26 Venous) CDT AM CDT Raman ChengS., M.P.H. LAB BLOOD ADD-ON Performing Organization Address City/State/[facility] Phon e Number [facility] - [address] Alkaline Phosphatase (09/10/2020 9:00 AM CDT) P athologist Signature Alkaline 58 35 - 104 09/10/2020 DTL Phosphatase, S U/L 10:25 AM CDT Specimen Anatomical Collection Method Collection Time Receive d Time (Source) Location / / Volume Laterality Blood (Blood, 09/10/2020 9:00 AM 09/11/19 9:26 Venous) CDT AM CDT Raamn Martino., M.P.H. LAB BLOOD ADD-ON Performing Organization Address City/[facility] Code Phon e Number [facility] - 200 [place] [phone] [address] [facility] [place] [address] Laboratories-[facility] 200 [facility] AST (Aspartate Aminotransferase) (09/10/2020 9:00 AM CDT) Patholo gist Method Time Signature Aspartate 18 8 - 43 09/10/2020 DTL Aminotransferase U/L 10:25 AM CDT (AST), S Specimen Anatomical Collection Method Collection Time Receive d Time (Source) Location / / Volume Laterality Blood (Blood, 09/10/2020 9:00 AM 09/11/19 9:26 Venous) CDT AM CDT Raman Martino., M.P.H. LAB BLOOD ADD-ON Performing Organization Address City/[facility] Code Phon e Number [facility] - [address] [address] [address] Bilirubin, Direct (09/10/2020 9:00 AM CDT) P athologist Signature Bilirubin, <0.2 0.0 - 0.3 09/10/2020 DTL Direct, S mg/dL 10:25 AM CDT Specimen Anatomical Collection Method Collection Time Receive d Time (Source) Location / / Volume Laterality Blood (Blood, 09/10/2020 9:00 AM 09/11/19 9:26 Venous) CDT AM CDT Raman Adams, M.P.H. LAB BLOOD ADD-ON Performing Organization Address City/[facility]/ZIP Code Phon e Number [facility] - [address] [place], [place] [address] [place] [address] 200 [facility] Bilirubin, Total (09/10/2020 9:00 AM CDT) athologist Signature Bilirubin, 0.5 <=1.2 mg/dL 09/10/2020 DTL Total, S 10:25 AM CDT Specimen Anatomical Collection Method Collection Time Receive d Time (Source) Location / / Volume Laterality Blood (Blood, 09/10/2020 9:00 AM 09/11/19 9:26 Venous) CDT AM CDT Raman Martino., M.P.H. LAB BLOOD ADD-ON Performing Organization Address City/[facility] Phon e Number [facility] - [id number] [place] [address] 200 [facility] Uric Acid (09/10/2020 9:00 AM CDT) athologist Signature Uric Acid, S 6.0 2.7 - 6.1 09/10/2020 DTL mg/dL 10:25 AM CDT Specimen Anatomical Collection Method Collection Time Receive d Time (Source) Location / / Volume Laterality Blood (Blood, 09/10/2020 9:00 AM 09/11/19 9:26 Venous) CDT AM CDT Raman Martino., M.P.H. LAB BLOOD ADD-ON Performing Organization Address City/State/[facility] Phon e Number [facility] - [address] Glucose, Fasting (09/10/2020 9:00 AM CDT) athologist Signature Glucose, P 99 70 - 100 09/10/2020 DTL mg/dL 10:09 AM CDT Last Intake 1 hr 09/10/2020 DT 9:26 AM CDT Specimen Anatomical Collection Method Collection Time Receive d Time (Source) Location / / Volume Laterality Blood (Blood, 09/10/2020 9:00 AM 09/11/19 9:26 Venous) CDT AM CDT Raman Adams, M.P.H. LAB BLOOD NON ADD-ON Performing Organization Address City/[facility]/ZIP Code Phon e Number [facility] - [address] 200 [facility] Potassium (09/10/2020 9:00 AM CDT) athologist Signature Potassium, S 4.3 3.6 - 5.2 09/10/2020 DTL mmol/L 10:25 AM CDT Specimen Anatomical Collection Method Collection Time Receive d Time (Source) Location / / Volume Laterality Blood (Blood, 09/10/2020 9:00 AM 09/11/19 9:26 Venous) CDT AM CDT Raman Adams, M.P.H. LAB BLOOD ADD-ON Performing Organization Address City/[facility] Phon e Number [facility] - [address] Sodium (09/10/2020 9:00 AM CDT) athologist Signature Sodium, S 139 135 - 145 09/10/2020 DTL mmol/L 10:25 AM CDT Specimen Anatomical Collection Method Collection Time Receive d Time (Source) Location / / Volume Laterality Blood (Blood, 09/10/2020 9:00 AM 09/11/19 9:26 Venous) CDT AM CDT Raman Adams, M.P.H. LAB BLOOD ADD-ON Performing Organization Address City/State/ZIP [facility] Phon e Number [facility] - [address] S-TSH (Thyroid-Stimulating Hormone - Sensitive) (09/10/2020 9:00 [...] City/State/ZIP Code Phon e Number [facility] - 200 [place], [place] [address] [facility] [place] [address] Laboratories-[facility] [address] [facility] (ABNORMAL) Lipid Panel (09/10/2020 9:00 AM CDT) [...] City/State/ZIP Code Phon e Number [facility] - 200 [place], [place] [address] [facility] [place] [address] Laboratories-[facility] 200 [facility] (ABNORMAL) CBC with Differential, Blood (09/10/2020 9:00 AM CDT) [facility] gist Method Time Signature Hemoglobin 12.5 [...] 21 9:27 Venous) CDT AM CDT Raman Adams, M.P.H. LAB BLOOD ADD-ON Performing Organization Address City/[facility] Phon e Number [facility] - 200 [place] [address] [address] (ABNORMAL) Prothrombin Time (PT) (09/10/2020 8:59 AM CDT) [facility] Method Time Signature Prothrombin 14.9 (H) 9.4 [...] 09/11/19 9:28 Venous) CDT AM CDT Raman Adams, M.P.H. LAB BLOOD ADD-ON Performing Organization Address City/[facility] Code Phon e Number [facility] - [phone] [place] [address] documented in this encounter Visit Diagnoses Diagnosis Tetralogy Of Fallot (HCC) - Primary Tetralogy Of Fallot (HCC) Tetralogy Of Fallot (HCC) Tetralogy Of Fallot (HCC) documented in this encounter
--- OUTSIDE RECORDS SUMMARY | 2022-01-20 19:48 | XMS_ITS | Encounter Summary ---
:1995 Author Organization [facility] Address [address] [place] [address] Care Team Providers Name Role Phone Unavailable Primary Care Provider Unavailable Reason for Visit Reason Comments COVID Inquiry Encounter Details Date Type Department Care Team Description 07/30/2020 Clinical Communication Department of [employer] Consultant, COV ID Inquiry Cardiovascular Medicine Miri Peralta in [facility]ola [address] [place] [address] Social History Tobacco Use Types Packs/Day Years [...] 09/06/2020 relatives? How often do you attend oriental orthodox or confucianism Never 09/06/2020 services? Do you belong to any clubs or organizations such Yes 09/06/2020 as oriental orthodox groups, unions, fraternal or athletic groups, or [...] place to sleep or slept in a skilled nursing (including now)? Sex Assigned at Date Recorded Not on file documented as of this encounter Miscellaneous Notes Telephone Encounter - [facility] - 07/30/2020 2:48 PM CDT What is the purpose of the call?: Standard Appointment Process Standard Appointment Process Have you tested positive for COVID-19 in the last 20 days OR do you have a pending COVID-19 test because you had symptoms?: No, neither apply What region is the appointment being requested?: More than 14 days [place]- follow local process (End Screening) Testing Recommendation Endpoint Is testing recommended? : Not recommended to test Plan: Endpoint recommendation: Followed regional OTG *Reminder if sending patient for testing [facility], route encounter to the correct testing pool. documented in this encounter Plan of Treatment Not on filedocumented as of this encounter Visit Diagnoses Not on filedocumented in this encounter
--- OUTSIDE RECORDS SUMMARY | 2022-01-20 19:48 | XMS_ITS | Encounter Summary ---
:1995 Author Organization [facility] Address [address] [place] [address] Care Team Providers Name Role Phone Unavailable Primary Care Provider Unavailable Reason for Referral Outpatient (Routine) - Closed Specialty Diagnoses / Procedures Referred By Contact Refer red To Contact Diagnoses Tetralogy Of Fallot (HCC) Raman Jett, [facility] Procedures Echo Transthoracic (TTE) - Adult Congenital M.B.B.S., M.P.H. [address] [place] [phone] Referral ID Status Reason Start Date Expiration Date Visits Requ ested Visits Authorized [id number] Closed 08/03/2020 08/03/2021 1 1 Reason for Visit Outpatient (Routine) - Closed Specialty Diagnoses / Procedures Referred By Contact Refer red To Contact Diagnoses Tetralogy Of Fallot (HCC) Raman Jett, [facility] Procedures Echo Transthoracic (TTE) - Adult Congenital M.B.B.S., M.P.H. 200 [place], [place] [phone] Referral ID Status Reason Start Date Expiration Date Visits Requ ested Visits Authorized [id number] Closed 08/03/2020 08/03/2021 1 1 Encounter Details Date Type Department Care Team Description 09/10/2020 Hospital Department of Raman Jett O f Encounter Cardiovascular Prosper BerriosSJasper, Fallot (HCC) Diseases in [facility] [address] [facility] [address] [place] [phone] Social History Tobacco Use Types Packs/Day Years [...] How often do you attend baptism or gnosticism Never 09/06/2020 services? Do you belong to [...] place to sleep or slept in a custodial (including now)? Education Answer Date Recorded What [...] Associated Comments Diagnosis (TTE) CONGENITAL 2D Routine 09/10/2020 2:48 PM Tetralogy Of Fa llot Results for this [...] For the complete report, see the Order-L [employer]igg[employer] Documents. Narrative 09/10/2020 3:00 PM CDT For the complete report, see the Order[employer] Documents. Final Impressions 1. Previous surgical repair [...] original. For the complete report, see the Order-L [...] Documents. Raman Martino., M.P.H. CV ECHO PROCEDURES documented in this encounter Visit Diagnoses Diagnosis Tetralogy Of Fallot (HCC) documented in this encounter Additional Health Concerns Assessment Noted Time PHQ-9 Depression Total Score: 19 09/10/2020 9:51 AM CD T documented as of this encounter
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
--- OUTSIDE RECORDS SUMMARY | 2022-01-20 19:48 | XMS_ITS | Encounter Summary ---
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 ASD closure, and PDA ligation (e/w, 09-11-98). --Status post pulmonary valvotomy. Mild pulmonary valve stenosis. Mean gradient 11 mmHg. Trivial pulmonary valve regurgitation. --Mild-moderately enlarged right ventricular chamber size with normal systolic function. --Estimated right ventricular systolic pressure 41 mmHg (systolic blood pressure 118 mmHg). --Moderate-severe tricuspid valve regurgitation. --Normal left ventricular chamber size. Calculated ejection fraction 65%. --Borderline enlarged inferior vena cava size with normal inspiratory collapse (>50%). --Normal right pulmonary artery. Left pulmonary artery incompletely visualized. --No ventricular level shunt by color flow. --Right aortic arch. Additional Diagnostic Studies Resting 12-lead ECG (09/10/2020). IMPRESSION/REPORT/PLAN 1. Atypical chest discomfort (undergoing further evaluation). 2. Tetralogy of Fallot. ?? Status post tetralogy of Fallot repair with Dacron patch closure of a ventricular septal defect, right ventricular outflow tract/infundibular muscle bundle resection, and pulmonary valve commissurotomy (09/11/1998). ?? Surgical atrial septal defect closure (09/11/1998). ?? Surgical patent ductus arteriosus ligation (09/11/1998). ?? Right aortic arch. 3. Chronic mild-moderate (sub-)pulmonary stenosis (in setting of the above with prior pulmonary valvotomy and mean gradient 11 mmHg on TTE from 09/10/2020). 4. Chronic mild-moderate tricuspid regurgitation (in setting of the above, with mild-moderate right ventricular enlargement but preserved function, and as visualized on TTE From 09/10/2020). 5. Obesity (class I, BMI 33) 6. COVID-19 infection (diagnosed 07/09/2020). 7. Anxiety disorder (NOS). 8. Depression (NOS). Ms. Malinda Medina is a 24-year-old woman with history of tetralogy of Fallot (status post repair [id number]) who presents to the [facility] today, 09/11/2020, for establishmentof care and evaluation of chest pain. Concerning the patient's underlying congenital heart disease (specifically, tetralogy of Fallot withprior repair in 1998), the patient's clinical and physical examination disclose no obvious complications. Follow-up echocardiographic evaluation reveals stable closure of previous atrial and ventricular septal defects with effectively unchanged gradients across the right ventricular outflow tract and choctaw pulmonary valve. Evaluation of the right ventricular outflow tract and pulmonary valve, however, remains difficult by surface echocardiogram, raising the possibility of more significant stenosis a cross this particular area. As a consequence, the patient will be referred for further anatomic evaluation with cardiac MRI, which will be used to guide the need for further intervention (e.g., revision of the patient's right ventricular outflow tract). Beyond the above, the patient presents with a roughly 8-month history of progressive atypical chest discomfort with associated presyncope. She has not endorsed anginal symptoms and palpitations and hasnot experienced syncope. Her follow-up laboratory evaluations and additional objective studies to date, including her transthoracic echocardiogram, do not reveal an obvious cause for these recurrent episodes, which have remained stable in their severity but increased in their frequency. In this context, the differential diagnosis includes both non-cardiac and cardiac causes. To navigate this broad dif ferential further, the patient be referred for cardiopulmonary exercise testing, cardiac MRI, and a 30-day continuous ambulatory monitor as outlined below. The results of these studies will be used to guide further evaluation and treatment. In addition to the above, the patient's risk was also reviewed. Please refer to the additional documentation from Dr. Raman Jett in this respect. Briefly, however, the patient's conditiondoes not serve as an absolute contraindication to . In fact, with appropriate monitoring byboth an adult congenital cardiology team and obstetrics, the patient would be safe to proceed (with WHO II risk). PLAN --The patient should proceed with regular moderate-intensity aerobic activity of approximately 30-45minutes daily 5-7 times weekly, aiming for additional weight loss of approximately 15-20 pounds as able over the next 6-12 months. --Biannual dental examination/cleaning. Prophylactic antibiotic therapy is not indicated. --Cardiopulmonary exercise testing. --Cardiac MRI, evaluating tetralogy of Fallot repair and, in particular, right ventricular outflow tract patency; presence/absence of anomalous coronary arteries; and presence/absence of pericardial disease. --30-day continuous ambulatory monitor (event monitor) for symptom-rhythm correlation. ADDENDUM (09/11/2020) The patient was contacted by phone on 09/11/2020 regarding the results of her cardiac MRI and cardiopulmonary exercise test. The former revealed, as suspected, successful repair of tetralogy of Fallot.The right ventricle measured normal in size with normal function. The left ventricle similarly measured normal in size and function. No coronary anomalies were appreciated, and the right ventricular outflow tract and pulmonary vasculature demonstrated no significant disease. The patient's cardiopulmonary exercise test demonstrated a normal heart rate and blood pressure response exercise. Heart rate recovery was somewhat slow. Peak VO2 measured approximately 60% predicted (limited). No arrhythmias and/or evidence of ischemia was appreciated. Maximal cardiometabolic effort was elicited. During this test, the patient's presyncope was reproduced, though her chest pain was not. As discussed with the patient, these findings collectively rule out gross structural disease, conduction disturbances, anomalo us coronary arteries, and/or significant epicardial coronary artery disease as contributing factors to her symptoms. Going forward, the patient will complete her 30-day continuous ambulatory monitor. She will aim to increase her activity as outlined above, aiming to achieve during exercise approximately 65-75% of her maximal predicted heart rate for the next 2-4 weeks (approximately 145) and subsequently aim for 80-85% of her maximal predicted heart rate thereafter (approximately 165). Depending on her response and time, further assessment may be undertaken, including non-invasive/invasive assessments of microvascular dysfunction. This patient was staffed with Dr. Raman Jett. Overall, the patient was in agreement with the plan as noted above. The patient had no further comments, questions, or concerns at the end of the visit, understanding, however, that the care team can be contacted anytime should further issues arise. FOLLOWUP Follow-up evaluation will be dictated by the above. PATIENT EDUCATION Ready to learn, no apparent learning barriers were identified; learning preferences include listening. Explained diagnosis and treatment plan; patient expressed understanding of the content. Electronically signed by: Will Bourgeois M.D. 09/11/20 9:10 AM CDT. documented in this encounter Plan of Treatment Scheduled Referrals Name Type Priority Associated Order Schedule Diagnoses Cardiovascular Disease Outpatient Referral Routine Expected: office visit (clinic) 2021 (Approximate), Expires: 09/12/2023 documented as of this encounter Results ECG 12 Lead (10/20/2021 10:25 AM CDT) P athologist Signature Ventricular Rate 57 BPM MUSE ECG/Min UT Interval 150 ms MUSE QRSD Interval 136 ms MUSE QT Interval 462 ms MUSE QTC Interval 449 ms MUSE P Warren 9 degrees MUSE R Warren 36 degrees MUSE T Wave Warren 31 degrees MUSE Specimen Anatomical Collection Method [...] COLOR AND DOPPLER (10/20/2021 9:51 AM CDT) [facility] Method Time Signature Ejection Fraction 66 MC [...] Documents. Raman Adams, M.P.H. CV ECHO PROCEDURES Creatinine with Estimated GFR (10/20/2021 8:17 AM CDT) athologist Signature Creatinine 0.84 0.59 - 10/20/2021 DTL 1.04 mg/dL 9:20 AM CDT eGFR-Non >90 >=60 10/20/2021 DTL Black/ mL/min/BSA 9:20 AM CDT Bahamian Comment: ----ADDITIONAL INFORMATION---- Estimated GFR calculated using [...] Organization Address City/State/ZIP Code Phon e Number [facility] - [address] [place], [place] [address] [facility] [place] [place] [address] [facility] [address] Albumin (10/20/2021 8:17 AM CDT) athologist Signature Albumin, S 4.9 3.5 - 5.0 10/20/2021 DTL g/dL 9:20 AM CDT Specimen Anatomical Collection Method Collection Time Receive d Time (Source) Location / / Volume Laterality Blood (Blood, 10/20/2021 8:17 AM 10/21/19 8:53 Venous) CDT AM CDT Raman Adams, M.P.H. LAB BLOOD ADD-ON Performing Organization Address City/[facility]/ZIP Code Phon e Number [facility] - [address] [place], [place] [address] [facility] [place] [address] [facility] [address] Alkaline Phosphatase (10/20/2021 8:17 AM CDT) P athologist Signature Alkaline 61 35 - 104 10/20/2021 DTL Phosphatase, S U/L 9:20 AM CDT Specimen Anatomical Collection Method Collection Time Receive d Time (Source) Location / / Volume Laterality Blood (Blood, 10/20/2021 8:17 AM 10/21/19 8:53 Venous) CDT AM CDT Raman Adams, M.P.H. LAB BLOOD ADD-ON Performing Organization Address City/[facility]/ZIP Code Phon e Number [facility] - [address] [place], [place] [address] [facility] [place] [address] [facility] [address] AST (Aspartate Aminotransferase) (10/20/2021 8:17 AM [...] Organization Address City/State/ZIP Code Phon e Number [facility] - [address] [place], [place] [address] [facility] [place] [address] [facility] [address] Bilirubin, Direct (10/20/2021 8:17 AM CDT) athologist Signature Bilirubin, <0.2 0.0 - 0.3 10/20/2021 DTL Direct, S mg/dL 9:20 AM CDT Specimen Anatomical Collection Method Collection Time Receive d Time (Source) Location / / Volume Laterality Blood (Blood, 10/20/2021 8:17 AM 10/21/19 8:53 Venous) CDT AM CDT Raman Adams, M.P.H. LAB BLOOD ADD-ON Performing Organization Address City/[facility] Phon e Number [facility] - [address] [place], [place] [address] [place] [address] Bilirubin, Total (10/20/2021 8:17 AM CDT) athologist Signature Bilirubin, 0.6 <=1.2 mg/dL 10/20/2021 DTL Total, S 9:20 AM CDT Specimen Anatomical Collection Method Collection Time Receive d Time (Source) Location / / Volume Laterality Blood (Blood, 10/20/2021 8:17 AM 10/21/19 8:53 Venous) CDT AM CDT Raman Adams, M.P.H. LAB BLOOD ADD-ON Performing Organization Address City/State/[facility] Phon e Number [facility] - [address] [place], [place] [address] [place] [address] [facility] [address] [facility] Uric Acid (10/20/2021 8:17 AM CDT) athologist Signature Uric Acid, S 5.1 2.7 - 6.1 10/20/2021 DTL mg/dL 9:20 AM CDT Specimen Anatomical Collection Method Collection Time Receive d Time (Source) Location / / Volume Laterality Blood (Blood, 10/20/2021 8:17 AM 10/21/19 8:53 Venous) CDT AM CDT Raman Adams, M.P.H. LAB BLOOD ADD-ON Performing Organization Address City/[facility] Phon e Number [facility] - [address] Glucose, Fasting (10/20/2021 8:17 AM CDT) [...] LAB BLOOD NON ADD-ON Performing Organization Address [facility] Phon e Number [facility] - [address] [place] [id number] [address] Potassium (10/20/2021 8:17 AM CDT) athologist Signature Potassium, S 3.7 3.6 - 5.2 10/20/2021 DTL mmol/L 9:20 AM CDT Specimen Anatomical Collection Method Collection Time Receive d Time (Source) Location / / Volume Laterality Blood (Blood, 10/20/2021 8:17 AM 10/21/19 8:53 Venous) CDT AM CDT Raman Adams, M.P.H. LAB BLOOD ADD-ON Performing Organization Address City/[facility] Phon e Number [facility] - [address] Sodium (10/20/2021 8:17 AM CDT) athologist Signature Sodium, S 141 135 - 145 10/20/2021 9:20 DTL mmol/L AM CDT Specimen Anatomical Collection Method Collection Time Receive d Time (Source) Location / / Volume Laterality Blood (Blood, 10/20/2021 8:17 AM 10/21/19 8:53 Venous) CDT AM CDT Raman Adams, M.P.H. LAB BLOOD ADD-ON Performing Organization Address City/[facility] Phon e Number [facility] - [address] S-TSH (Thyroid-Stimulating Hormone - Sensitive) (10/20/2021 8:17 AM CDT) athologist Signature TSH, Sensitive 3.3 0.3 - 4.2 10/20/2021 DT mIU/L 9:20 AM CDT Specimen Anatomical Collection Method Collection Time Receive d Time (Source) Location / / Volume Laterality Blood (Blood, 10/20/2021 8:17 AM 10/21/19 8:53 Venous) CDT AM CDT Raman Adams, M.P.H. LAB BLOOD ADD-ON Performing Organization Address [facility] Phon e Number [facility] - [id number] [place] [address] Lipid Panel (10/20/2021 8:17 AM CDT) athologist Signature Triglycerides 76 mg/dL 10/20/2021 DT 9:20 AM CDT Comment: ----REFERENCE VALUE---- Normal: [...] Organization Address City/State/ZIP Code Phon e Number [facility] - [address] [place] [address] [facility] [place] [address] [facility] [address] [facility] (ABNORMAL) CBC with Differential, Blood (10/20/2021 8:17 AM CDT) [facility] gist Method Time Signature Hemoglobin 13.3 11.6 - [...] M.P.H. LAB BLOOD ADD-ON Performing Organization Address City/[facility] Phon e Number [facility] [address] [address] Laboratories-[address] Protein, Total (10/20/2021 8:16 AM CDT) P athologist Signature Protein, Total, 7.6 6.3 - 7.9 10/20/2021 DTL S g/dL 9:26 AM CDT Specimen Anatomical Collection Method Collection Time Receive d Time (Source) Location / / Volume Laterality Blood (Blood, 10/20/2021 8:16 AM 10/21/19 8:54 Venous) CDT AM CDT Raman LeonardBJasperS., M.P.H. LAB BLOOD ADD-ON Performing Organization Address City/[facility]/ZIP Code Phon e Number [facility] - [address] [place] [address] [facility] [address] [facility] NT-Pro B-Type Natriuretic Peptide (BNP) (10/20/2021 8:16 [...] Organization Address City/State/ZIP Code Phon e Number [facility] - [address] [place], [place] [address] [place] [id number] [place] [address] [address] [facility] BUN (Blood Urea Nitrogen) (10/20/2021 8:16 AM CDT) athologist Signature BUN (Blood Urea 14 6 - 21 10/20/2021 DTL Nitrogen), S mg/dL 9:26 AM CDT Specimen Anatomical Collection Method Collection Time Receive d Time (Source) Location / / Volume Laterality Blood (Blood, 10/20/2021 8:16 AM 10/21/19 8:54 Venous) CDT AM CDT Ramna Martino., M.P.H. LAB BLOOD ADD-ON Performing Organization Address City/State/[facility] Phon e Number [facility] - [address] [place], [place] [address] [place] [address] [facility] [address] [facility] ECG AMBULATORY REAL TIME CARDIAC MONITORING (10/10/2020 [...] Duration 0 sec duration [facility] AF [place] 0% percent INFOBIONIC MOME [place] Runs 1 count [facility] SVT Runs 0 count [facility] Symptom Count 139 count [facility] MOME Specimen (Source) Anatomical Collection Method Collection Time Re ceived Time Location / / Volume Laterality 09/11/2020 2:07 PM CDT Narrative [facility]OME - 10/13/2020 11:11 AM CD T 1. [...] BPM. ??Single PVC's and runs of [place] werepresent.Construction Supervisor/Carpenter: BERT Newell/BERT Suárez Procedure Note Pranay Sierra M.BJasperB.S. - 021 1. The patient was monitored [...] BPM. Single PVC's and runs of [place] werepresent.Construction Supervisor/Carpenter: BERT Newell/BERT Suárez Will Bourgeois M.D. CV CARDIAC SERVICES PROCEDUR ES Performing Organization Address City/State/ZIP Code Phon e Number [facility] NA MR Cardiac without and with IV Contrast [...] Visit Diagnoses Diagnosis Anomaly Heart Congenital (HCC) - Primary Pain Chest Atypical Tetralogy Of Fallot (HCC) Anomaly Heart Congenital (HCC) Pain Chest Atypical Anomaly Heart Congenital (HCC) Tetralogy Of Fallot (HCC) documented in this encounter Additional Health Concerns Infection Onset Date Last Indicated Resolved Time COVID19 Pending 10/20/2021 10/20/2021 10/20/2021 3:40 PM CDT Assessment Noted Time PHQ-9 Depression Total Score: 19 09/10/2020 9:51 AM CD T documented as of this encounter
--- OUTSIDE RECORDS SUMMARY | 2022-01-20 19:48 | XMS_ITS | Encounter Summary ---
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 Pt was seen in ED for pelvic pain- US showed simple ovarian cyst. Pt was given percocet in ED for pain and has been taking for over a week. Asking for letter to excuse from work as has not been able to work all week due to narcotic use. Did review with pt that at appointment on 01/03- provider did advise not appropriate to be taking percocet for described pain. Offered alternative of scheduled Tylenol, Ibuprofen and Atatrax. Pt seemed unaware of this. Did advise that due to this, provider would not be able to give pt requested excuse from work. Pt verbalizes her understanding and has no further questions. documented in this encounter Plan of Treatment Not on filedocumented as of this encounter Visit Diagnoses Not on filedocumented in this encounter Care Teams Flamer After Lasting Relationship Specialty Start Date End Date Shannan Santana MD PCP - General Internal 07/30/21 [id number] [address] [facility]Pediatrics [place] [facility] [id number] documented as of this encounter
--- OUTSIDE RECORDS SUMMARY | 2022-01-20 19:48 | XMS_ITS | Encounter Summary ---
:1995 [email or web address] Address [address], [place] [address] Care Team Providers Name Role Phone Shannan Santana MD Primary Care Provider Reason for Referral Procedure/Equipment (Routine) - Incomplete Specialty Diagnoses / Procedures Referred By Contact Refer red To Contact Diagnoses Left ovarian cyst Saba Burnett MD [place] [id number] [address] [place] [address] Referral ID Status Reason Start Date Expiration Date Visits V isits Requested Authorized [id number] Incomplete 04/04/2022 07/04/2023 1 1 Reason for Visit Reason Comments CONSULT Encounter Details Date Type Department Care Team Description 01/03/2022 Office Visit [facility] Saba Burnett Left ova carl cyst (Primary Dx); 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 Rima Vaginal discharge; [address], [address] Y[address] cool 1 obesity; [address] History of tetralogy of Fallot repair; [place], [place] Generalized anxiety disorder [id number] [phone] (Wo rk) Social History Tobacco Use Types Packs/Day Years Used Date Smoking Tobacco: Never Smokeless Tobacco: Never Tobacco Cessation: Counseling Given: Not Answered Alcohol Use Standard Drinks/Week Comments Never 0 (1 standard drink = 0.6 oz pure alcoho l) Sex Assigned at Date Recorded Female 10/26/2020 7:23 AM CDT documented as of this encounter Last Filed Vital Signs Vital Sign Reading Time Taken Comments Blood Pressure 99/67 01/03/2022 11:03 AM CDT Pulse 74 01/03/2022 11:03 AM CDT Temperature - - Respiratory Rate - - Oxygen Saturation - - Inhaled Oxygen Concentration - - Weight 98 kg (216 lb) 01/03/2022 11:03 AM CDT Height - - Body Mass Index 33.83 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 Ovarian Cyst: Functional (Nigerian)documented in this encounter Progress Notes Saba Burnett MD - 01/03/2022 11:00 AM CDT Malinda Medina [id number] 1995 Gynecology Visit Reason for Visit: Ovarian cysts HPI: Malinda Medina is a 26 y.o. who presents to clinic today to discuss Ovarian cysts. 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 Terry Swift our [facility] at the age of 10 months at is follwed by the [facility] (last visit 10/21/2021). PMH is otherwise notable for LORNA/MDD, ulcerative colitis (05/2021) after presenting with rectal bleeding, h/o left ovarian cyst rupture requiring laparoscopic evacuation of hemoperitoneum with concurrent removal of intrauterine device on 10/13/2020 at [facility] ([facility]). Also with Class 1 obesity. The patient states last on 12/30/2021, she was at work at [employer] in [place], when she was standing bloating shows which she normally does as part of her job requirements. The patient states she got done, it went on break to eat when all the sudden she had a relatively sudden onset of abdominal pain. She developed secondary symptoms including becoming tearful and becoming nauseated. The patient states she ???tried to tough it out?? in took 3 Tylenol, and for ibuprofen which did not help significantly with her discomfort. At that time, she told her colleagues and they [facility]. The patient states there, she had a urine and blood tests completed as well as a CT scan and a pelvic ultrasound. She does not have these test results with her, she states that she was given a CD of her images. The patient states she was told she had a 6 cm cyst, and needed to follow-up with Gynecology soon. In the emergency department, the patient reports she was given IV Dilaudid and this was really the only thing that helped with her pain. She was also given Percocet,that she continues to take, but did not take any this morning. She has not taking any ibuprofen Tylenol, but states they do not work. Regarding ovarian cyst, the patient states this is the fifth time she has been diagnosed with a cystin the past 12 months. She usually does not see a microfilm mounter, rather her primary care provider who she last saw on 11/26/2021. Otherwise, the patient usually is [facility]. The patient gets monthly menstrual cycles. She is currently sexually active with both male and female partners, the last was couple weeks ago. Ever since she was diagnosed with a cyst, she has had abnormal vaginal discharge, but this is all the while she is menstruating. She is wondering if abnormal vaginal discharge is secondary to her cyst rupturing. The patient's current contraception is Micronor OCPs. The patient states she has used the Mirena andthe Destinee in the past, but these have not worked out well for her, which is consistent with her history of an arcuate uterus as diagnosed at the time a pelvic laparoscopy in October of 2020. The patient states she has been on control pills in the past, but the last time was approximately 1 or 2 years ago when she use an application on her phone and was sent control pills through the mail. The patient reports she was on Faustina, but when she started to take these pills, she developed a headache and was told that she should not be on them. In addition to the the ovarian cyst, which the patient is very adamant is 6 cm not 5.5 and a meters,she would also like to talk about the diagnosis of polycystic ovarian syndrome. She feels like she has these, but has never talked to a microfilm mounter or her primary care provider about this. Patient states she has increased hair on her legs, on her arms, and sometimes can ???grow a brothers. ?? Patient would like to talk about this today. She would also like to talk about her life long struggle with weight management. Of note, the patient states she ???hates?? speculum exams. She does not tolerate tampons, and only wears pads. 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 Off of any hormones they are very sporadic. Bleeding lasts 5 days, changes a pad every 8 hours. No cramps while on hormones. STI H/o: Chlamydia x2 in 2019 Contraception: Micronor; has used Mirena and Destinee IUD, then she also used a pill which caused her to gain weight. 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 Terry Swift our [facility] at the age of 10 months OVARIAN CYST SURGERY 10/2020 Left ovarian cyst rupture with hemoperitoneum WISDOM TEETH EXTRACTION Meds:Updated and reviewed in chart Social: Updated and reviewed in chart Review of Systems Remainder of a 8 point Review of Systems is negative Exam: BP 99/67 (BP Location: Right Arm, BP Cuff Size: Regular - Long) Pulse 74 Wt 216 lb (98 kg) LMP01/02/2022 BMI 33.83 kg/m?? Constitutional: Well appearing, non-toxic female, the patient was able to get up on the exam table, laid back in sit up without any difficulties or hesitancy. She does not have any involuntary rebound or guarding. Psych: A&O x3, the patient does make good eye contact, however is very tangential in her thoughts HEENT: Eyes are normal with clear sclerae. Ears are symmetric. Respiratory: Non-labored breathing with good inspiratory effort CV: Distal extremities are warm and well perfused Musculoskeletal: Normal gait Neuro: Moves all extremities equally : External genitalia within normal limits. Bartholin's, Rox[place]'s, urethral meatus are all normal. The patient does have blood on her perineum consistent with her current menses. Because of this, I told her that it would not be prudent for us to complete the vaginal cultures. Imaging: Final Report: INDICATION: Left adnexal lesion identified on CT TECHNIQUE: Ultrasound pelvis endovaginal utilizing grayscale, color Doppler, and spectral Doppler sonography. COMPARISON: CT abdomen/pelvis 12/30/2021. FINDINGS: Uterus: Anteverted uterus measuring 8.2 x 3.9 x 5.3. Homogeneous echotexture. Nosuspicious lesion. Endometrium: Endometrial stripe measures 7 mm in thickness. No endometrial polyp or mass identified. Right ovary: 4.6 x 1.8 x 2.5 cm. Intact blood flow. No suspicious lesion. Left ovary: 7.0 x 4.6 x 4.7 cm. Intact blood flow. Left ovarian anechoic 5.5 x 4.2 x 4.7 cm lesion with posterior acoustic enhancement, without internal complexity or vascularity. Cul-de-sac: No significant free fluid. IMPRESSION: 1. The left ovary is enlarged as result of a 5.5 cm simple ovarian cyst. 2. Intact ovarian blood flow bilaterally. Assessment: Malinda Medina is a 26 y.o. female with a 5.5 cm simple left ovarian cyst in the setting of complex past surgical history with TOF, abnormal vaginal discharge and concerns about her weight. LO simple cyst: - I did review with the patient the nature of this simple cyst being functional on nature. I did review the pathophysiology behind this, the patient was very adamant that cysts are abnormal. Written information was provided. Given the patient's size of this ovary, as well as her history I did discuss r ecommendations for expectant management at this time. The patient was very adamant that her pain wasnot controlled with ibuprofen and Tylenol, however she has not taken these in a scheduled fashion. Idid review with her that it is not appropriate to continue with narcotics at this time. Rather, we talked about using naproxen b.i.d. which she has prescribed, with 975 mg of Tylenol every 6 hours. In addition to this, the patient can take Atarax, 50-100 mg to help with pain augmentation. The patient will reach out her work to see if she can continue to work while she is taking oxycodone and Tylenol.I did review with the patient that I would not be writing any work notes for this, and I would recomm end she stop taking narcotics. - I did review with the patient that progesterone only options are not going to help prevent patient's recurrent ovarian cyst. Given the patient is a relatively questionable historian regarding the control pills that she was on as well as the symptoms, and not having any overt contraindications to read trying combined options, we did talk about combined pills, the patch or the ring. I did talk about using the ring however the patient was very adamant that she is not comfortable placing anything inside of her vagina so she did not want to pursue this first. Alternatively, we did talk about control pills. Given the patient did have headaches with Kiley, will try an alternative form of p rogesterone, as well as the lower dose with Loestrin. This was sent to the pharmacy. Out of an abundance of precaution, the patient will use a backup contraception for 7 days. She just recently startedtaking her new pack of POPs. Abnormal vaginal discharge: - the patient is not having any vulvar vaginal itching. I did review that this is not associated with her cyst rupturing. Given the amount of bleeding she is having being in the middle of her menses, Icannot complete gonorrhea/chlamydia as well as affirm which I would recommend given her history. When her bleeding resolves, if she is having ongoing changes I recommended that she come to clinic to beevaluated. Class 1 obesity with hirsutism: - I did discuss with the patient that I am not able to make the definitive diagnosis of polycystic ovarian syndrome today, however we did discuss nutrition/dietitian or referral to the medical weight loss center. Alternatively, she could talk to her primary care provider possibly endocrinology about starting metformin. This will be discussed at a follow-up visit as we did not have time for today because her visit extended from 30 minutes to 55 minutes in duration. - Regarding her hirsutism, I did briefly discuss that combined control pills can help with this. In addition, there turn the medications like spironolactone that we can again talk about a follow-up visit. Other: - Declines flu today I did ask the patient to follow-up in 3 months following a pelvic ultrasound. Any future visits the patient needs to schedule for 30 minutes in duration, regardless if they are follow-up or not. Saba Burnett MD P: [phone] 01/03/2022 11:20 AM Dictation Disclaimer: Some notes are completed with voice-recognition dictation software. Typographical errors may result . Please contact me via [facility] staff message if you note any errors requiring clarification. documented in this encounter Plan of Treatment Scheduled Orders Name Type Priority Associated Diagnoses Order S chedule US Pelvic Complete W Imaging New Routine Left ovarian cyst Ex pected: 04/04/2022 EV (Approximate), Expires: 2022 documented as of this encounter Visit Diagnoses Diagnosis Left ovarian cyst - Primary Other and unspecified ovarian cyst Vaginal discharge Leukorrhea, not specified as infective Class 1 obesity (HRC) History of tetralogy of Fallot repair Personal history of surgery to heart and great vessels, presenting hazards to health Generalized anxiety disorder (HRC) Generalized anxiety disorder documented in this encounter Care 

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
--- OUTSIDE RECORDS SUMMARY | 2022-01-20 19:48 | XMS_ITS | Encounter Summary ---
:1995 Author Organization [facility] Address [address], [place] [address] Care Team Providers Name Role Phone Shannan Santana MD Primary Care Provider Encounter Details Date Type Department Care Team Description 11/09/2021 Orders Only HIM DEPARTMENT Provider, Anastasia block MD Interface provid er interface provider, [facility] [id number] Social History Tobacco Use Types Packs/Day Years [...] procedure are in the resu lts section. documented in this encounter Results LABORATORY REPORT (11/09/2021) Narrative This result has an attachment that is no t available. Interface Provider DUMMY/OTHER/AR documented in this encounter Visit Diagnoses Not on filedocumented in this encounter Care Teams Sap Bi Architect Relationship Specialty Start Date End Date Shannan Santana MD PCP - General Internal 07/30/21 [id number] [address] [facility] Medicine/Pediatrics [facility] [id number] documented as of this encounter
--- OUTSIDE RECORDS SUMMARY | 2022-01-20 19:48 | XMS_ITS | Encounter Summary ---
:1995 Author Organization [facility] Address [address], [place] [address] Care Team Providers Name Role Phone Shannan Santana MD Primary Care Provider Reason for Visit Reason Comments FATIGUE Encounter Details Date Type Department Care Team Description 01/04/2022 Nurse Triage [facility] Nurse Line Shannan Santana MD FATIGUE [address] [facility] [address] [facility] [address] [address] [place], [place] [id number] [place] [address] [phone] Social History Tobacco Use Types Packs/Day Years Used Date Smoking Tobacco: Never Smokeless Tobacco: Never Alcohol Use Standard Drinks/Week Comments Never 0 (1 standard drink = 0.6 oz pure alcoho l) Sex Assigned at Date Recorded Female 10/26/2020 7:23 AM CDT documented as of this encounter Nursing Notes Virginie August RN - 01/05/2022 12:02 AM CDT Reason for Disposition [1] MODERATE weakness (i.e., interferes with work, school, normal activities) AND [2] cause unknown(Exceptions: weakness with acute minor illness, or weakness from poor fluid intake) Additional Information Negative: Difficult to awaken or acting confused (e.g., disoriented, slurred speech) Negative: [1] SEVERE weakness (i.e., unable to walk or barely able to walk, requires support) AND [2] new-onset or worsening Protocols used: Weakness (Generalized) and [id number] Patient calling. States she was diagnosed with left ovarian cyst. Seen in the ER at [facility] on 12/30. Then followed up with her OBGYN yesterday and told everything was ok and to follow up in 3 months. See notes from yesterday. States today she has slept 12 hours, took a 3 hour nap and now she is wanting to go back to bed again. Reports that she was told if she was having extreme fatigue to be seen back in the ER. PNNL advised to review her discharge instructions from [facility]. PNNL unable to seethose instructions or review it. Patient states she was told this verbally. States she is ambulatingnormally, eating and drinking ok. Denies fever, vomiting, diarrhea, or severe pain. Denies feeling li ke she is going to pass out, not responding normally, or confusion. Is at home with her roommate. Rates her current pain 3/10. States she does have her period and only changing her pad twice a day, states her bleeding is minimal and this was discussed at her appointment yesterday. NL paged and spokewith the yard person Dr. Jones and he advised bleeding would have nothing to do with ovarian cyst. If she is not taking the Percocet which can cause sleepiness, and fatigue continuing, may need to follow up with PCP and not OBGYN. She will call back if not improving to see PCP or be seen urgently tonightif worsening. Agrees with plan. Problem list reviewed as related to this call. documented in this encounter Plan of Treatment Not on filedocumented as of this encounter Visit Diagnoses Not on filedocumented in this encounter Care Teams Administrative Intern Relationship Specialty Start Date End Date Shannan Santana MD PCP - General Internal 07/30/21 [id number] [address] [facility] Medicine/Pediatrics [facility] [id number] documented as of this encounter
--- OUTSIDE RECORDS SUMMARY | 2022-01-20 19:48 | XMS_ITS | Encounter Summary ---
:1995 Author Organization [facility] Address [address] [place] [address] Care Team Providers Name Role Phone Unavailable Primary Care Provider Unavailable Reason for Visit Reason Comments Triage Encounter Details Date Type Department Care Team Description 07/27/2020 Clinical Communication Department of Special Procedures Technologist, [facility] Cardiovascular Medicine Miri Peralta in [facility]ola [address] [place] [address] Social History Tobacco Use Types Packs/Day [...] 09/06/2020 relatives? How often do you attend bahai or orthodoxy Never 09/06/2020 services? Do you belong to any clubs or organizations such Yes 09/06/2020 as bahai groups, unions, fraternal or athletic groups, or [...] place to sleep or slept in a longterm (including now)? Sex Assigned at Date Recorded Not on file documented as of this encounter Miscellaneous Notes Telephone Encounter - Sofie Lyn - 08/03/2020 12:37 PM CDT Surgical reports available for review. Telephone Encounter - Estefani Hale - 07/30/2020 2:51 PM CDT Scheduled with Dr. Jett and sent to [facility] to order testing. Telephone Encounter - Estefani Hale - 07/28/2020 9:01 AM CDT Miguel, Please review request for patient to be seen in Congenital Clinic Indication: Tetralogy Of Fallot and Pain Chestrecords are in Care Everywhere to review. Telephone Encounter - Cayetano Crain P.A.-C. - 07/27/2020 3:57 PM CDT TRIAGE NOTE FOR GENERAL CARDIOLOGY 24 y.o. y/o female from [address] [place] [address] self referred for CP and congenital heart disease TOF s/p repair in the 1st year of life. EMELYN TRIAGE RECOMMENDATIONS: --please send to adult congenital heart clinic to review. Thanks, Cayetano Crain P.A.-C. documented in this encounter Plan of Treatment Not on filedocumented as of this encounter Visit Diagnoses Not on filedocumented in this encounter
--- OUTSIDE RECORDS SUMMARY | 2022-01-20 19:48 | XMS_ITS | Encounter Summary ---
:1995 [facility] Address [address] [place] [address] Care Team Providers Name Role Phone Shannan Santana MD Primary Care Provider Reason for Visit Reason Comments PAIN, POST OPERATIVE Encounter Details Date Type Department Care Team Description 01/20/2022 Nurse Triage Careline Unassigned, PAIN, POST OPERATIVE [address] [place] [address] [place] [address] [place] [address] Social History Tobacco Use Types Packs/Day Years Used Date Smoking Tobacco: Never Smokeless Tobacco: Never Alcohol Use Standard Drinks/Week Comments Never 0 (1 standard drink = 0.6 oz pure alcoho l) Sex Assigned at Date Recorded Female 10/26/2020 7:23 AM CDT documented as of this encounter Nursing Notes Ladonna Marquis RN - 01/20/2022 5:35 PM CDT Verified patient identity: Yes Situation/Background (brief explanation of current symptoms/situation): had her Left ovary removed today at [facility] Reviewed with patient pertinent medical history (as it related to the call): Yes Reviewed with patient pertinent medications (as they relate to call): Yes Reviewed with patient pertinent allergies (as they relate to call): Yes Reason for Disposition Patient sounds very sick or weak to the triager Answer Assessment - Initial Assessment Questions 1. SYMPTOM: What's the main symptom you're concerned about? (e.g., pain, fever, vomiting) pain 2. ONSET: When did start? Since home 3. SURGERY: What surgery was performed? Laprascopic removal of ovary 4. DATE of SURGERY: When was surgery performed? 01/20/22 5. ANESTHESIA: What type of anesthesia did you have? (e.g., general, spinal, epidural, local) General 6. PAIN: Is there any pain? If Yes, ask: How bad is it? (Scale 1-10; or mild, moderate, severe) 8/10 if moves goes to a 10/10. Has taken 10 mg Oxy with in the last 2 hours with no relief 7. FEVER: Do you have a fever? If Yes, ask: What is your temperature, how was it measured, and when did it start? unsure 8. VOMITING: Is there any vomiting? If yes, ask: How many times? nauseated 9. BLEEDING: Is there any bleeding? If Yes, ask: How much? and Where? denies 10. OTHER SYMPTOMS: Do you have any other symptoms? (e.g., drainage from wound, painful urination,constipation) Has not urinated too painful to get out of chair and move Protocols used: Post-Op Symptoms and [id number] Plan: Pt encouraged to be seen in the ER for evaluation Advised patient/caller to call back CareLine if there are further questions or concerns or to be seen if situation becomes emergent. The CareLine is available 31/10. Lindsay De La O RN Careline Liset Peñaloza - 01/20/2022 5:33 PM CDT Verified patient identity using three identifiers: Yes Caller's relationship to patient: Self Do you get your primary care at a HP or PN clinic: PN Are you calling about a related concern: No Do you see a PN specialist for the reason you are calling? No Does patient have Red Flag Symptoms? Yes HP Select Member: No Symptoms Describe the reason for call/symptoms (include location and duration if applicable): ovary removed today - pain is 10 Plan:Caller transferred directly to CareLine nurse. documented in this encounter Plan of Treatment Not on filedocumented as of this encounter Visit Diagnoses Not on filedocumented in this encounter Care Teams Operations Professional Relationship Specialty Start Date End Date Shannan Santana MD PCP - General Internal 07/30/21 [address] [facility] Medicine/Pediatrics [facility] [id number] documented as of this encounter
[2022-01-20] MEDS: MORPHINE 10 MG/ML inj IM (19:49)
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
--- OUTSIDE RECORDS SUMMARY | 2022-01-20 19:49 | XMS_ITS | Encounter Summary ---
:1995 Author Organization [facility] Address [address] [address] Care Team Providers Name Role Phone John Stokes MD Primary Care Provider Reason for Visit Reason Comments UPDATE Blood in stool Encounter Details Date Type Department Care Team Description 04/26/2021 Telephone Special[facility] [address] Ariana Pablo MD UPDATE (Blood in Gastroenterology [address] stool) [address] [place] [id number] [phone] Social History Tobacco Use Types Packs/Day Years Used Date Smoking Tobacco: Never Sex Assigned at Date Recorded Female 10/26/2020 7:23 AM CDT documented as of this encounter Nursing Notes Kumar Sotomayor RN - 04/26/2021 3:15 PM CST Pt contacted. Reportedly has COVID and will be going into ED to be evaluated. 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 Giancarlo Pablo MD AND BOILER COVERS SUPERVISOR Kumar Sotomayor RN - 04/26/2021 9:48 AM CST Pt calling. Hasn't been seen in clinic. For the past 3 weeks pt has endorsed moderate amounts of clumps of blood and mucous in stool. Mix between bright red and dark. No pain or fever noted or other symptoms verbalized . Instructed pt to be seen in UC to be evaluated and reach out to PCP. Pt agreed. Routing to oncall. AND BOILER COV[employer] SUPERVISOR documented in this encounter Plan of Treatment Not on filedocumented as of this encounter Visit Diagnoses Not on filedocumented in this encounter Care Teams Filing Clerk Relationship Specialty Start Date End Date John Stokes MD PCP - General Family Practice 07/08/20 07/14/[address] [facility] [address] [place] [address] documented as of this encounter
--- OUTSIDE RECORDS SUMMARY | 2022-01-20 19:49 | XMS_ITS | Encounter Summary ---
:1995 Author Organization [facility] Address [address], [place] [address] Care Team Providers Name Role Phone John Stokes MD Primary Care Provider Reason for Referral (Routine) - New Request Specialty Diagnoses / Procedures Referred By Contact Refer red To Contact Diagnoses Rectal bleeding Ngoc Rebollar MD Procedures Endoscopy, Colon, Screening/Diagnostic [address] [place] Referral ID Status Reason Start Date Expiration Date Visits V isits Requested Authorized [id number] New Request 04/28/2021 07/28/2022 1 1 ICAL THERAPY INSTRUCTOR Encounter Details Date Type Department Care Team Description 04/28/2021 Telemedicine [facility] [place], Rec carrie bleeding (Primary Dx); Medicine Abdominal pain, unspecified abdominal lo cation; [address], unspecified type [address] [place] [address] [phone] (Wo rk) Social History Tobacco Use Types Packs/Day Years Used Date Smoking Tobacco: Never Sex Assigned at Date Recorded Female 10/26/2020 7:23 AM CDT documented as of this encounter Progress Notes Ngoc Rebollar MD - 04/28/2021 10:30 AM CST VIDEO VISIT date of visit: 04/28/2021 cc: Rectal bleeding Subjective: Malinda Medina is a pleasant 25 y.o. female who presents for blood in the stool. She reports that she has been going 6-8 times per day for about the last 3 weeks. She has clots at times. She has had hemorrhoids in the past so initially she thought this was going on. Now that it has been going on for3 weeks she believes it could be something more. She recently completed quarantine for COVID 19 infection. Yesterday she was having extreme stomach pain. She had diarrhea as well. The best she can describe is a Light red color that appears like uncooked ground beef chunks. She went to the ED and they did do a digital exam and pt reports that they did not find any bleedingsource. Her hemoglobin was normal in the ED. The abdominal pain is midline and lower. She has been constipated for a period of time. Today there is a little less blood. Review of systems: See HPI Medications: Reviewed and updated in [facility]. Allergies: Reviewed and updated in [facility]. Allergies Allergen Reactions ??? Estrogens Headache ??? [place] [Hydrocodone-Acetaminophen] Other, see comments Nausea lightheaded Past Medical/Surgical/Family/Social history: reviewed and updated in [facility]. Objective: General Appearance: The patient appears well. No obvious respiratory distress. The patient does not appear overly anxious or depressed. Assessment/Plan: ICD-10-CM 1. Rectal bleeding K62.5 Endoscopy, Colon, Screening/Diagnostic 2. Abdominal pain, unspecified abdominal location R10.9 3. Diarrhea, unspecified type R19.7 25-year-old female who presents for 3 weeks of rectal bleeding. There have been clots that had been passed. She reports that it has been consistent bleeding. She was seen in the emergency department 3 days ago and had a normal hemoglobin of 13 at that time. Her electrolytes, kidney function, liver function and lipase levels were all normal at that point. She also had a digital rectal exam which did not reveal any bleeding hemorrhoids externally. - I reassured the patient that while scary, the fact that her hemoglobin has remained normal is veryreassuring. There were no signs of infection or problems with her internal organs based on her labs. -this may be a bleeding internal hemorrhoid. I did provide annusol Suppositories. - urgent colonoscopy request also placed. Telephone note to frontline to fax to [facility]. - discussed OTC treatment for hemorrhoids including avoiding constipation. This visit was conducted via video. Location of clinician home. Location of patient home. Billing based on: Complexity Plan was discussed with patient. If symptoms worsen or fail to improve, patient should return to clinic for further workup. Ngoc Rebollar MD 04/28/2021, 12:05 PM Dictation was performed using voice recognition software. There may be errors in the dictation secondary to voice recognition anomalies. ICAL THERAPY INSTRUCTOR documented in this encounter Plan of Treatment Not on filedocumented as of this encounter Results Endoscopy, Colon, Screening/Diagnostic (05/19/2021 9:34 AM PHYSICAL THERAPY INSTRUCTOR) Specimen (Source) Anatomical Collection Method Collection Time Re ceived Time Location / / Volume Laterality 05/19/2021 9:34 AM PHYSICAL THERAPY INSTRUCTOR Narrative [facility]) - 05/19/2021 9:34 AM PHYSICAL THERAPY INSTRUCTOR Patient Name: Malinda Medina Procedure Date: 05/19/2021 9:34 AM Date of : 1995 Admit Type: Outpatient Age: 25 Gender: Female Note Status: Finalized Attending MD: Edgardo Grimes , Procedure: ? Colonoscopy Indications: ? Hematochezia Providers: ? Elizabeth Eli Referring MD: ?Ngoc Rebollar Medicines: ? Midazolam 4 mg IV, Fentanyl 100 ? microg aracely IV Procedure: ? Pre-Anesthe sebastian Assessment: ? - The risks and benefits of the ? proced ure and the sedation options ? and yossi amaya were discussed with the ? patidouglas t. All questions were ? answer ed and informed consent was ? obtain ed. ? After I obtained informed consent, ? the sc ope was passed under direct ? vision . Throughout the procedure, ? the marcia hackett's blood pressure, ? pulse, and oxygen saturations were ? monito red continuously. The ? CF-HQ1 90L-02 was introduced through ? the an us and advanced to the ? termin al ileum, with identification ? of the appendiceal orifice and IC ? valve. The colonoscopy was ? perfor med without difficulty. The ? patien t tolerated the procedure ? well. The quality of the bowel ? prepar ation was adequate to ? identi fy polyps. The quality of the ? bowel preparation was evaluated ? using the BBPS (Ivor Bowel ? Prepar ation Scale) with scores of: ? Right Colon = 3, Transverse Colon = ? 3 and Left Colon = 3 (entire mucosa ? seen w ell with no residual ? staini ng, small fragments of stool ? or opa que liquid). The total BBPS ? score equals 9. Findings: ? The perianal and digital rectal e xaminations were ? normal. ? The terminal ileum appeared vasile l. ? Inflammation characterized by con gestion (edema), ? erythema, friability, granularity , loss of ? vascularity and mucus was found i n a continuous and ? circumferential pattern from the anus to the rectum ? and in the cecum (cecal patch). T he sigmoid colon, ? the descending colon, the splenic flexure, the ? transverse colon, the hepatic fle xure and the ? ascending colon were spared. The inflammation was ? severe - the findings are new. Bi opsies were taken ? with a cold forceps for histology . ? The exam was otherwise without ab normality. Moderate Sedation: ? Moderate (conscious) sedation was administered by the ? endoscopy nurse and supervised by the endoscopist. ? The patient's oxygen saturation, heart rate, blood ? pressure and response to care wer e monitored. Total ? physician intraservice time was 1 4 minutes. Impression: ?25yo female with rectal bleeding. ? Colono scopy to evaluate. ? - The examined portion of the ileum ? was no rmal. ? - Proc titis ulcerative colitis. ? Infldarien cox was found from the ? anus t o the rectum and in the cecum ? (cecal patch around appendiceal ? orific e). This was severe, new ? diagno sis. Biopsied. ? - The examination was otherwise ? normal . Recommendation: ?- Discharge p atient to home. ? - Reina rosas to GI clinic at ? appoin tment to be scheduled. ? - Judie t pathology results. ? - Use Canasa 1000 mg suppository 1 ? per re ctum QHS. Procedure Code(s): ? --- Professiona l --- ? 62159, Colonoscopy, flexible; with ? biopsy , single or multiple ? G0500, Moderate sedation services ? provid ed by the same physician or ? other qualified health care ? profes sional performing a ? gastro intestinal endoscopic service ? that s edation supports, requiring ? the pr esence of an independent ? pamelae d observer to assist in the ? monito ring of the patient's level ? of con sciousness and physiological ? status ; initial 15 minutes of ? intra- service time; patient age 5 ? years or older (additional time may ? be rep orted with 82990, as ? approp riate) Diagnosis Code(s): ? --- Professiona l --- ? K51.20 , Ulcerative (chronic) ? procti tis without complications ? K92.1, Melena (includes ? Hemato chezia) CPT copyright 2020 [employer]. All rights reserved. The codes documented in this report are preliminary and upon claims counsel review may be revised to meet current compliance requirements. Edgardo Grimes, 05/19/2021 10:33:52 AM Number of Addenda: 0 Note Initiated On: 05/19/2021 9:34 AM ? Endoscopy Report Procedure Note Provider, MD Celeste - 05/19/2021Form atting of this note might be different from the original. Patient Name: Malinda Medina Procedure Date: 05/19/2021 9:34 AM Date of : 1995 Admit Type: Outpatient Age: 25 Gender: Female Note Status: Finalized Attending MD: Edgardo Grimes , Procedure: Colonoscopy Indications: Hematochezia Providers: Elizabeth Miller ers Referring MD: Ngoc Rebollar Medicines: Midazolam 4 mg IV, Fentanyl 1 00 micrograms IV Procedure: Pre-Anesthesia Assessment: - The risks and benefits of the procedure and the sedation options and risks were discussed with the patient. All questions were answered and informed consent was obtained. After I obtained informed consent, the scope was passed under direct vision. Throughout the procedure, the patient's blood pressure, pulse, and oxygen saturations were monitored continuously. The [id number] was introduced through the anus and advanced to the terminal ileum, with identification of the appendiceal orifice and IC valve. The colonoscopy was performed without difficulty. The patient tolerated the procedure well. The quality of the bowel preparation was adequate to identify polyps. The quality of the bowel preparation was evaluated using the BBPS (Ivor Bowel Preparation Scale) with scores of: Right Colon = 3, Transverse Colon = 3 and Left Colon = 3 (entire mucosa seen well with no residual staining, small fragments of stool or opaque liquid). The total BBPS score equals 9. Findings: The perianal and digital rectal examina tions were normal. The terminal ileum appeared normal. Inflammation characterized by congestio n (edema), erythema, friability, granularity, loss of vascularity and mucus was found in a co ntinuous and circumferential pattern from the anus t o the rectum and in the cecum (cecal patch). The sig moid colon, the descending colon, the splenic flexu re, the transverse colon, the hepatic flexure a nd the ascending colon were spared. The inflam mation was severe - the findings are new. Biopsies were taken with a cold forceps for histology. The exam was otherwise without abnormal ity. Moderate Sedation: Moderate (conscious) sedation was admin istered by the endoscopy nurse and supervised by the e ndoscopist. The patient's oxygen saturation, heart rate, blood pressure and response to care were foreign tored. Total physician intraservice time was 14 poppy macie. Impression: 25yo female with rectal blee ding. Colonoscopy to evaluate. - The examined portion of the ileum was normal. - Proctitis ulcerative colitis. Inflammation was found from the anus to the rectum and in the cecum (cecal patch around appendiceal orifice). This was severe, new diagnosis. Biopsied. - The examination was otherwise normal. Recommendation: - [facility] - Return to GI clinic at appointment to be scheduled. - Await pathology results. - Use Canasa 1000 mg suppository 1 per rectum QHS. Procedure Code(s): --- Professional --- 30857, Colonoscopy, flexible; with biopsy, single or multiple G0500, Moderate sedation services provided by the same physician or other qualified health care team assistant performing a gastrointestinal endoscopic service that sedation supports, requiring the presence of an independent trained observer to assist in the monitoring of the patient's level of consciousness and physiological status; initial 15 minutes of intra-service time; patient age 5 years or older (additional time may be reported with 17514, as appropriate) Diagnosis Code(s): --- Professional --- K51.20, Ulcerative (chronic) proctitis without complications K92.1, Melena (includes Hematochezia) CPT copyright 2020 [employer]. All rights reserved. The codes documented in this report are preliminary and upon claims counsel review may be revised to meet current compliance requirements. Edgardo Grimes, 05/19/2021 10:33:52 AM Number of Addenda: 0 Note Initiated On: 05/19/2021 9:34 AM Endoscopy Report Ngoc Rebollar MD PN [facility] PROCEDURE ORDERABLES Performing Organization Address City/State/ZIP Code Phon e Number [facility] [place], [place] documented in this encounter Visit Diagnoses Diagnosis Rectal bleeding - Primary Hemorrhage of rectum and anus Abdominal pain, unspecified abdominal lo cation Diarrhea, unspecified type Rectal bleeding Hemorrhage of rectum and anus documented in this encounter Care Teams Heavy Duty Diesel Mechanic Relationship Specialty Start Date End Date John Stokes MD PCP - General Family Practice 07/08/20 07/14/21 [facility] [address] [place] [address] documented as of this encounter
--- OUTSIDE RECORDS SUMMARY | 2022-01-20 19:49 | XMS_ITS | Encounter Summary ---
:1995 Author Organization [employer] Address [address] [place] [address] Care Team Providers Name Role Phone John Stokes MD Primary Care Provider Reason for Visit Reason Comments VAGINAL BLEEDING Encounter Details Date Type Department Care Team Description 06/28/2021 Nurse Triage [facility] Nurse [facility] John Stokes MD VAGINAL BLEEDING [address] [place] [address] [place] [address] [phone] (Wo rk) Social History Tobacco Use Types Packs/Day Years Used Date Smoking Tobacco: Never Sex Assigned at Date Recorded Female 10/26/2020 7:23 AM CDT documented as of this encounter Nursing Notes Janny Verdugo RN - 06/28/2021 7:52 PM CDT Reason for Disposition ??? Normal menstrual flow Protocols used: VAGINAL BLEEDING - [id number] Pt called states that she has had heavier then normal vaginal bleeding. Pt states that she just pasta large clot, she has had intermittent abdominal pain that started last night. Pt states that she has been taking ibuprofen for the discomfort. Pt will call OB tomorrow, advised to call back directly if there are further questions, or if these symptoms fail to improve as anticipated or worsen. documented in this encounter Plan of Treatment Not on filedocumented as of this encounter Visit Diagnoses Not on filedocumented in this encounter Care Teams Validation Intern Relationship Specialty Start Date End Date John Stokes MD PCP - General Family Practice 07/08/20 07/14/21 [facility] [address] [place] [address] documented as of this encounter
--- OUTSIDE RECORDS SUMMARY | 2022-01-20 19:49 | XMS_ITS | Encounter Summary ---
:1995 Author Organization [employer] Address [address], [place] [address] Care Team Providers Name Role Phone Kourtney Grimaldo DO Primary Care Provider Reason for Visit Reason Comments Forms Encounter Details Date Type Department Care Team Description 07/15/2021 Telephone [facility] [address] Kourtney Granados DO Forms Medicine [address] [facility] [place] [address] [place] [address] [phone] Social History Tobacco Use Types Packs/Day Years Used Date Smoking Tobacco: Never Smokeless Tobacco: Never Sex Assigned at Date Recorded Female 10/26/2020 7:23 AM CDT documented as of this encounter Nursing Notes Gabriel Paz MA - 07/20/2021 2:34 PM CDT Pt notified disability parking certificate completed by PCP and mailed to pt's home address. Pt needs to complete her portion. A copy holding in the fax bin. Kashif Starkey - 07/16/2021 10:47 AM CDT Form will be placed in PCP's in-basket for review. When completed, please route back to [facility]. Kourtney Grimaldo DO - 07/15/2021 3:52 PM CDT Please put a handicap parking form for this patient in my in-basket so I can fill it out when I return to clinic on Monday. Thanks! Kourtney Grimaldo DO documented in this encounter Plan of Treatment Not on filedocumented as of this encounter Visit Diagnoses Not on filedocumented in this encounter Care Teams Fleet Salesperson Relationship Specialty Start Date End Date Kourtney Grimaldo DO PCP - General Family Practice 07/15/21 07/29/21 [address] [place] [address] documented as of this encounter
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
--- OUTSIDE RECORDS SUMMARY | 2022-01-20 19:49 | XMS_ITS | Encounter Summary ---
:1995 Author Organization [facility] Address [address] [address] Care Team Providers Name Role Phone John Stokes MD Primary Care Provider Reason for Referral Procedure/Equipment (Routine) - Incomplete Specialty Diagnoses / Procedures Referred By Contact Refer red To Contact Procedures Leo Hu MD XR Portable Chest 1 View [address], [place] [address] Referral ID Status Reason Start Date Expiration Date Visits V isits Requested Authorized [id number] Incomplete 04/02/2021 07/02/2022 1 1 K PATROL (Routine) - Incomplete Specialty Diagnoses / Procedures Referred By Contact Refer red To Contact Procedures Chris Vincent MD ECG 12 Lead [address] [place], [place] [address] Referral ID Status Reason Start Date Expiration Date Visits V isits Requested Authorized [id number] Incomplete 04/02/2021 07/02/2022 1 1 K PATROL Reason for Visit Reason Comments Chest Pain SOB (SHORTNESS OF BREATH) Encounter Details Date Type Department Care Team Description 04/02/2021 - [facility] Gary Hu MD Cough; 04/03/2021 Center [address] Chest pain, unspecified type [address] [place] [phone] Social History Tobacco Use Types Packs/Day Years Used Date Smoking Tobacco: Never Sex Assigned at Date Recorded Female 10/26/2020 7:23 AM CDT documented as of this encounter Last Filed Vital Signs Vital Sign Reading Time Taken Comments Blood Pressure 122/74 04/03/2021 1:05 AM TRACK PATROL Pulse 85 04/03/2021 1:05 AM TRACK PATROL Temperature 37.1 ??C (98.7 ??F) 04/02/2021 9:27 PM TRACK PATROL Respiratory Rate 16 04/03/2021 1:05 AM TRACK PATROL Oxygen Saturation 99% 04/03/2021 1:05 AM TRACK PATROL Inhaled Oxygen Concentration - - Weight 95.3 kg (210 lb) 04/02/2021 9:27 PM TRACK PATROL Height 170.2 cm (5' 7) 04/02/2021 9:27 PM TRACK PATROL Body Mass Index 32.89 04/02/2021 9:27 PM TRACK PATROL documented in this encounter Discharge Instructions Discharge InstructionsLeo Hu MD - 04/03/2021 1:03 AM CST As we discussed, if develop changing or worsening pain or symptoms, seek medical care immediately. Discharge Instructions Bronchitis, Pneumonia, Bronchospasm You were seen today for a chest infection or inflammation. If your provider decided this was due to a bacterial infection, you may need an antibiotic. Sometimes these are caused by a virus, and then anantibiotic will not help. Generally, every Emergency Department visit should have a follow-up clinic visit with either a primary or a specialty clinic/provider. Please follow-up as instructed by your emergency provider today. Return to the Emergency Department if: Your breathing gets much worse. You are very weak, or feel much more ill. You develop new symptoms, such as chest pain. You cough up blood. You are vomiting (throwing up) enough that you cannot keep fluids or your medicine down. What can I do to help myself? Fill any prescriptions the provider gave you and take them right away--especially antibiotics. Be sure to finish the whole antibiotic prescription. You may be given a prescription for an inhaler, which can help loosen tight air passages. Use this as needed, but not more often than directed. Inhalers work much better when used with a spacer. You may be given a prescription for a steroid to reduce inflammation. Used long-term, these can have side effects, but for short-term use they are safe. You may notice restlessness or increased appetite. You may use non-prescription cough or cold medicines. Cough medicines may help, but don't make the cough go away completely. Avoid smoke, because this can make your symptoms worse. If you smoke, this may be a good time to quit! Consider using nicotine lozenges, gum, or patches to reduce cravings. If you have a fever, Tylenol?? (acetaminophen), Motrin?? (ibuprofen), or Advil?? (ibuprofen) may help bring fever down and may help you feel more comfortable. Be sure to read and follow the package directions, and ask your provider if you have questions. Be sure to get your flu shot each year. For certain ages, the pneumonia shot can help prevent pneumonia. If you were given a prescription for [...] is anything that worries you. Discharge Instructions Chest Pain You have been [...] if there is anything that worries you. K PATROL documented in this encounter Medications at Time of Discharge Medication Sig Dispensed Refills Start Date End Date acetaminophen (TYLENOL) Take 1-2 Tablets by 100 Tablet 11 09/202009/01/2021 325 MG tablet mouth every 6 hours as needed for Pain. ibuprofen (MOTRIN) 600 MG Take 1 Tablet by 40 Tablet 0 07/0 09/202007/23/2021 tablet mouth every 6 hours as needed for Pain. meclizine (ANTIVERT) 25 Take 1 Tablet by 30 Tablet 0 202004/28/2021 MG tablet mouth every 6 hours as needed for Dizziness/Vertigo. meclizine (ANTIVERT) 25 TAKE ONE TABLET BY 30 Tablet 0 12/04/202008/05/2021 MG tablet MOUTH EVERY 6 HOURS NEEDED FOR DIZZINESS/VERTIGO. Norethindrone (LYLEQ OR) 0 08/18/2021 ondansetron (ZOFRAN-ODT) Take 1 Tablet by 10 Tablet 0 12/2809/01/2021 4 MG disintegrating mouth every 8 hours tablet as needed for Nausea. oxyCODONE-acetaminophen Take 2 Tablets by 10 Tablet 0 12/2907/23/2021 (PERCOCET) 5-325 MG mouth every 6 hours tabletIndications: Pelvic as needed for Pain. pain in female rizatriptan ([employer]) 0 02/08/2021 08/05/2021 10 MG disintegrating tablet SUMAtriptan (IMITREX) 100 TAKE 1 TABLET BY 0 05/202007/30/2021 MG tablet MOUTH AT ONSET OF MIGRAINE NEEDED. MAY REPEAT 1 TIME AFTER 2 HOURS. MAX 2 TABLETS DAILY AND 3 DAYS PER WEEK documented as of this encounter ED Notes Zena Nation RN - 04/03/2021 1:16 AM CST The patient will be discharged to home. Patient is alert and oriented x 4 and patient is stable. Patient discharged by: ambulation accompanied by self. Temp: 37.1 ??C (98.7 ??F) (04/02/212126) Pulse: 85 (04/03/21104) Resp: 16 (04/03/21104) BP: 122/74 (04/03/21104) SpO2: 99 % (04/03/21104) Patient rates pain at a level of 0/10 Discharge instructions for Chest Pain, Bronchospasms, Pneumonia, & Bronchitis were provided to patient and reviewed at the bedside. Medication list reviewed and given to patient as summarized on the printed AVS. The patient verbalizes understanding of discharge instructions, reason for discharge and necessary follow-up care with the patient's PCP as reviewed on the printed discharge instructions. Leo Rivera MD - 04/02/2021 10:10 PM CST Chief Complaint: Chief Complaint Patient presents with ??? Chest Pain ??? SOB (SHORTNESS OF BREATH) HPI: Malinda Medina is a 25 y.o. old female with history of tetralogy of fallot who presents to the ED with cough and chest pain. I'm pretty sure I have bronchitis. her boyfriend and her whole family were diagnosed with bronchitis. Reports a cough that feels junky but is not coughing up anything. No known fevers. Had a sore throat yesterday. This morning felt somewhat dyspneic. Has felt lightheaded. No syncope or near syncope. Feels better lying down. Has a history of tetralogy of fallot. She gets chest pain from that but this feels different. Earlier had a pain to the right side of the chest. Reports minimal pain currently. Pain is pleuritic. Pfizer x2. Has had a flu shot this year. No history of dvt or pe. No leg pain or swelling. Per rn note: Fabian arrives via EMS from home for 1-2 hx of increased SOB and chest pain. Pt's SOB got so severe that she wasn't able to walk around her house. Pt also reports that her chest pain/pressure changes in location, quality, and severity throughout the day. ?? EKG-R BBB (baseline), BG 81, VSS ?? Hx: Tetrology of Fallot, recent POTS dx, Right BBB, COVID 27 July & Dec 2020 ?? Of note pt's boyfriend and family dx with bronchitis PMH: Patient Active Problem List Diagnosis ??? Cyst of left ovary ??? Female pelvic pain ??? Hemoperitoneum ??? Malpositioned IUD (HRC) ??? History of tetralogy of Fallot repair ??? Arcuate uterus ??? BMI 32.0-32.9,adult ??? Hemorrhagic ovarian cyst ??? ASCUS of cervix with negative high risk HPV ??? Congenital anomaly of heart ??? Croup ??? Febrile seizure (HRC) ??? Hemivertebra ??? 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 Migraine syndrome ??? Tetralogy of Fallot Medications: Current Outpatient Medications Medication ??? acetaminophen (TYLENOL) 325 MG tablet ??? ibuprofen (MOTRIN) 600 MG tablet ??? meclizine (ANTIVERT) 25 MG tablet ??? meclizine (ANTIVERT) 25 MG tablet ??? Norethindrone (LYLEQ OR) ??? ondansetron (ZOFRAN-ODT) 4 MG disintegrating tablet ??? oxyCODONE-acetaminophen (PERCOCET) 5-325 MG tablet Allergies: Allergies Allergen Reactions ??? Estrogens Headache ??? [place] [Hydrocodone-Acetaminophen] Other, see comments Nausea lightheaded Past Surgical History: No past surgical history on file. Family History: No family history on file. Social History: Social History Tobacco Use Smoking Status Never Smoker Smokeless Tobacco Not on file Review of Systems: Remainder of review of systems is negative, please see HPI. Physical Exam: Triage Vitals [04/02/212126] Temp 37.1 ??C (98.7 ??F) Temp src Oral Pulse 96 Resp 24 BP 119/78 SpO2 100 % VS: BP 124/67 Pulse 82 Temp 37.1 ??C (98.7 ??F) (Oral) Resp 19 Ht 1.702 m (5' 7) Wt 95.3 kg (210 lb) SpO2 99% BMI 32.89 kg/m?? General: alert, interactive Eyes: no scleral icterus ENT: mucus membranes moist CV: S1 S2 no audible murmur, radial pulses palpable and symmetric RESPIRATORY: clear bilaterally GI: abdomen soft, nontender, no guarding or rebound SKIN: no diaphoresis NEURO: alert, moves all extremities PSYCHIATRIC: good eye contact, normal affect MUSCULOSKELETAL: no cyanosis, no LE edema, no calf tenderness to palpation Laboratory/Diagnostic: LABS: Results for orders placed or performed during the hospital encounter of 04/02/21 Basic Metabolic Panel Result Value Ref Range Sodium 138 136 - 145 mmol/L Potassium 3.8 3.5 - 5.1 mmol/L Chloride 107 98 - 109 mmol/L CO2 23 20 - 29 mmol/L Anion Gap 8 7 - 16 mmol/L Calcium 8.2 (L) 8.4 - 10.4 mg/dL BUN 15 7 - 26 mg/dL Creatinine 0.83 0.55 - 1.02 mg/dL GFR, Estimated >60 >60 mL/min/1.73m2 Glucose 98 70 - 100 mg/dL Extra Blue top tube Result Value Ref Range Extra Blue Top Drawn Specimen will be held for 3 days Extra Gold/SST Tube Result Value Ref Range Extra Gold/SST Tube Drawn Specimen will be held for 5 days Complete Blood Count-W/Diff Result Value Ref Range WBC 7.7 3.5 - 10.5 x10(9)/L RBC 4.00 3.90 - 5.03 x10(12)/L Hemoglobin 11.5 (L) 12.0 - 15.5 g/dL HCT 35.3 34.9 - 44.5 % MCV 88.3 80.0 - 100.0 fL MCH 28.8 27.6 - 33.3 pg MCHC 32.6 31.5 - 35.2 g/dL RDW 11.9 11.9 - 15.5 % Platelets 223 150 - 450 x10(9)/L Automated NRBC 0 <=0 /100 WBC Neutrophil Absolute 4.7 1.7 - 7.0 10(9)/L Lymphocyte Absolute 2.1 1.0 - 4.8 10(9)/L Monocytes Absolute 0.7 0.2 - 0.9 10(9)/L Eosinophil Absolute 0.1 0.0 - 0.5 10(9)/L Basophil Absolute 0.0 0.0 - 0.3 10(9)/L Immature Gran % 0.1 0.0 - 0.5 % HCG, Qualitative, Serum Result Value Ref Range HCG, Serum Qual Negative Negative Troponin - Once STAT Result Value Ref Range Troponin I <0.01 0.00 - 0.03 ng/mL D Dimer, Quantitative Result Value Ref Range D Dimer, Quant <0.27 <=0.50 ug/mL FEU Troponin I (2 hours) Result Value Ref Range Troponin I <0.01 0.00 - 0.03 ng/mL COVID (Rapid Yellow Kit, Nares) - Asymptomatic [facility] ED ONLY Result Value Ref Range COVID-19 Interpretation Not Detected Not Detected Source Nares, left and right Influenza A and B by PCR Result Value Ref Range INFLUENZA A MOLECULAR Not Detected Not Detected INFLUENZA B MOLECULAR Not Detected Not Detected ECG 12 Lead Result Value Ref Range Ventricular Rate 93 BPM Atrial Rate 93 BPM P-R Interval 158 ms QRS Duration 126 ms QT 384 ms QTc 477 ms P Lupton 28 degrees R Lupton 79 degrees T Lupton 46 degrees IMAGING: XR Portable Chest 1 View Final Result COMPARISON: Chest x-ray dated 03/19/2021. FINDINGS: Single AP portable upright view of the chest. The lungs are clear. Heart size and pulmonary vascularity are within normal limits. Right-sided aortic arch. There is no evidence of pneumothoraxor pleural effusion. No acute infiltrates are identified. EKG: ECG Results ECG 12 Lead (Final result) Component (Lab Inquiry) Collection Time Result Time Ventricular Rate Atrial Rate P-R Interval QRS Duration QT QTc P Lupton R Lupton T Lupton 04/02/21 21:23:53 04/02/21 22:33:02 93 93 158 126 384 477 28 79 46 Final result Narrative: Sinus rhythm Right bundle branch block Abnormal ECG When compared with ECG of 10-MAR-2021 19:13, Questionable change in QRS axis Confirmed by Leo Hu ([id number]) on 04/02/2021 10:32:59 PM ED Course: Medications sodium chloride 0.9% injection 10-60 mL (has no administration in time range) acetaminophen (TYLENOL) tablet 1,000 mg (1,000 mg Oral Given 04/02/212234) lidocaine viscous (XYLOCAINE) 2 % oral liquid 15 mL (15 mL Oral Given 04/02/212236) And aluminum-magnesium hydroxide-simethicone (MYLANTA) 200-200-20 MG/5ML suspension 15 mL (15 mL Oral Given 04/02/212235) Clinical Impressions as of 04/03/21104 Cough Chest pain, unspecified type Following our examination and treatment, any identified emergency medical condition has resolved. Patient is stable for discharge and may pursue follow-up care as recommended. Last ED Vitals: Temp: 37.1 ??C (98.7 ??F) (04/02 2127) Temp src: Oral (04/02 2127) Pulse: 82 (04/03 102) Resp: 19 (04/03 102) BP: 124/67 (04/03 0031) SpO2: 99 % (04/03 102) Discharge Medications: Medications Prescribed this Visit None MDM/Plan: 25-year-old female here for evaluation with cough. She reports short episodes of chest pain. PE hasbeen ruled out With a negative D-dimer. troponins are negative x2. Does report a cough. Influenza and COVID tests are negative. Chest x-ray shows clear lungs. No hypoxia. Findings are not suggestive ofCHF. She declines any cough medication for home, states that the Mucinex is working well. She was seen on 03/18. Per this note has had workup including MRI stress test in 30 days of heart monitor for chest pains over the past several months. Symptoms are not suggestive Of aortic dissection. No syncopeor near syncope. I doubt any dysrhythmia. ECG shows old RBBB. Suspect findings are due to viral pathology with her cough and sick contacts.blood work shows a very mild hypocalcemia and mild anemia. Sheambulated with no hypoxia or chest pain. She feels the short episodes of pain are due to her lungs/cough. She will update Mccamey with her symptoms as well. She would like to go home. I am not finding anysignificant pathology. She will return if red flags develop. Discussed red flags warranting immediate medical treatment, all questions answered. Diagnosis: 1. Cough 2. Chest pain, unspecified type Leo Hu MD 04/03/21 0105 K PATROL documented in this encounter Plan of Treatment Not on filedocumented as of this encounter Procedures Procedure Name Priority Date/Time Associated Comments Diagnosis XR PORTABLE CHEST 1 STAT 04/02/2021 11:53 Resu lts for this VIEW PM TRACK PATROL procedure are i n the results section. TROPONIN I Specified Time 04/02/2021 11:46 Results f or this PM TRACK PATROL procedure are i n the results section. INFLUENZA VIRUS A STAT 04/02/2021 10:36 Result s for this AND B, MOLECULAR PM TRACK PATROL procedure a re in DETECTION the results section. 2019 NOVEL STAT 04/02/2021 10:36 Results for this CORONAVIRUS PM TRACK PATROL procedure are i n the results section. COVID/INFLUENZA STAT 04/02/2021 10:36 Results for this PM TRACK PATROL procedure are i n the results section. EXTRA BLUE TOP TUBE STAT 04/02/2021 9:37 Resul ts for this PM TRACK PATROL procedure are i n the results section. CBC AND DIFFERENTIAL STAT 04/02/2021 9:37 Resu lts for this PANEL PM TRACK PATROL procedure are i n the results section. RAINBOW DRAW AND STAT 04/02/2021 9:37 Results for this HOLD PM TRACK PATROL procedure are i n the results section. EXTRA GOLD/SST TUBE STAT 04/02/2021 9:37 Resul ts for this PM TRACK PATROL procedure are i n the results section. COMPLETE BLOOD STAT 04/02/2021 9:37 Results fo r this COUNT-W/DIFF PM TRACK PATROL procedure are i n the results section. D DIMER, STAT Add-On 04/02/2021 9:37 Results for this QUANTITATIVE PM TRACK PATROL procedure are i n the results section. BASIC METABOLIC STAT 04/02/2021 9:37 Results f or this PANEL PM TRACK PATROL procedure are i n the results section. TROPONIN I STAT Add-On 04/02/2021 9:37 Results for this PM TRACK PATROL procedure are i n the results section. HCG,QUALITATIVE, STAT Add-On 04/02/2021 9:37 Results for this SERUM PM TRACK PATROL procedure ar e in the results section. ECG 12 LEAD STAT 04/02/2021 9:23 Results for this INPATIENT PM TRACK PATROL procedure are i n the results section. documented in this encounter Results XR Portable Chest 1 View (04/02/2021 11:53 PM TRACK PATROL) Anatomical Region Laterality Modality Chest, Lung Computed Radiography Specimen (Source) Anatomical Collection Method Collection Time Re ceived Time Location / / Volume Laterality 04/02/2021 11:14 PM TRACK PATROL Impressions 04/03/2021 12:17 AM TRACK PATROL COMPARISON: ??Chest x-ray dated 03/19/2021. FINDINGS: ??Single AP portable upright v iew of the chest. ??The lungs are clear. ??Heart size and pulmonary vascularity are within normal limits. Right-sided aortic arch. There is no evidence of pneumot horax or pleural effusion. ??No acute in filtrates are identified. Procedure Note Ji Villafana MD - 04/03/2021Format ting of this note might be different from the original. IMPRESSION COMPARISON: Chest x-ray dated 03/19/2021 . FINDINGS: Single AP portable upright vie w of the chest. The lungs are clear. Heart size and pulmonary vascularity are within normal limits. Right-sided aortic arch. There is no evidence of pneumothorax or pleural effusion. No acute infiltrates are ident ified. Leo Hu MD RAD PORTABLE Troponin I (2 hours) (04/02/2021 11:46 PM TRACK PATROL) P athologist Signature Troponin I <0.01 0.00 - 0.03 04/03/2021 [facility] ng/mL 12:22 AM TRACK PATROL LABORATORY Specimen Anatomical Collection Method / Collection Time Recei terra Time (Source) Location / Volume Laterality Blood Venipuncture / 04/02/2021 11:46 Unknown PM TRACK PATROL 11:54 PM TRACK PATROL Leo Hu MD LAB_1 Performing Organization Address [facility] Phon e Number [facility] [address] [place] [id number] Influenza A and B by PCR (04/02/2021 10:36 PM TRACK PATROL) [facility] Xola Method Time [facility] INFLUENZA A Not Detected Not Detected 04/03/2021 [facility] MOLECULAR 12:36 AM LABORATORY TRACK PATROL INFLUENZA B Not Detected Not Detected 04/03/2021 [facility] MOLECULAR 12:36 AM LABORATORY TRACK PATROL Specimen Anatomical Collection Method Collection Time Receive d Time (Source) Location / / Volume Laterality Swab (Source ENTIRE ANTERIOR Non-blood 04/02/2021 10:36 04/02/20 21 Required) NARIS / Unknown Collection / PM TRACK PATROL 10:43 PM TRACK PATROL Unknown Narrative [facility] - 04/03/2021 12:36 AM TRACK PATROL Methodology: ??Qualitative real-time PCR assay to detect the Influenza type A and type B viral RNA Leo Hu MD LAB_1 Performing Organization Address [facility] e Number [facility] [address] [place] [phone] COVID (Rapid Yellow Kit, Nares) - Asymptomatic [facility] ED ONLY (04/02/2021 10:36 PM TRACK PATROL) [facility] Method Time Signature COVID-19 Not Not 04/02/2021 [facility] Interpretation Detected Detected 11:21 PM LABORATORY TRACK PATROL Source Nares, left 04/02/2021 [facility] and right 11:21 PM LABORATORY TRACK PATROL Specimen Anatomical Collection Method Collection Time Receive d Time (Source) Location / / Volume Laterality Swab (Source ENTIRE ANTERIOR Non-blood 04/02/2021 10:36 04/02/20 21 Required) NARIS / Unknown Collection / PM TRACK PATROL 10:43 PM TRACK PATROL Unknown Narrative [facility] - 04/02/2021 11:21 PM TRACK PATROL Test performed by nucleic acid amplification technology (NAAT). This test has been authorized by the FDA under an Emergency Use Authorization (EUA) for use by authorized laboratories. Leo Hu MD LAB_1 Performing Organization Address [facility] Phon e Number [facility] [address] [place] [address] D Dimer, Quantitative (04/02/2021 9:37 PM TRACK PATROL) P athologist Signature D Dimer, Quant <0.27 <=0.50 04/02/2021 [facility] ug/mL FEU 10:42 PM TRACK PATROL LABORATORY Specimen Anatomical Collection Method / Collection Time Recei terra Time (Source) Location / Volume Laterality Blood Venipuncture / 04/02/2021 9:37 04/02/2021 9:42 Unknown PM TRACK PATROL PM TRACK PATROL Narrative [facility] - 04/02/2021 10:42 PM TRACK PATROL A D-dimer level <=0.50 ug/mL FEU in a patient with a low clinical pretest probability for a 1st episode of DVT can rule out lower extremity DVT (rate of DVT in next 3 months < 2%). ?? For patients greater than 50 years of ag e, the application of age-adjusted cut- off values for D-Dimer may increase the specificity without significant effect on sensitivity. The results in this laborato ry are reported as ug/mL FEU. The calcul ation for age adjusted cut off in ug/mL FEU = age in years x 0.01 ug/mL FEU. For example, the cut off for a 76 year old male is 76 x 0.01 ug/mL FEU = <=0.76 ug/mL FEU. Increased D-dimer is seen in thromboembo lism, DIC, liver disease, renal disease, cardiac infarct and failure, cancer, , stroke, infection, recent surgery, hemorrhage and age > 70 years. D-dimer levels decrease with anticoagula tion therapy and increasing clot age. Leo Hu MD LAB_1 Performing Organization Address [facility] Phon e Number [facility] [address] [place] [address] Troponin - Once STAT (04/02/2021 9:37 PM TRACK PATROL) athologist Signature Troponin I <0.01 0.00 - 0.03 04/02/2021 [facility] ng/mL 10:42 PM TRACK PATROL LABORATORY Specimen Anatomical Collection Method / Collection Time Recei terra Time (Source) Location / Volume Laterality Blood Venipuncture / 04/02/2021 9:37 04/02/2021 9:42 Unknown PM TRACK PATROL PM TRACK PATROL Leo Hu MD LAB_1 Performing Organization Address [facility]/ZIP Code Phon e Number [facility] [address] [place] [address] HCG, Qualitative, Serum (04/02/2021 9:37 PM TRACK PATROL) Analysis Performed At Patho logist Time Signature HCG, Serum Negative Negative 04/02/2021 [facility] Qual 10:26 PM TRACK PATROL LABORATORY Specimen Anatomical Collection Method / Collection Time Recei terra Time (Source) Location / Volume Laterality Blood Venipuncture / 04/02/2021 9:37 04/02/2021 9:42 Unknown PM TRACK PATROL PM TRACK PATROL Leo Hu MD LAB_1 Performing Organization Address [facility] Phon e Number [facility] [address] [place] [address] (ABNORMAL) Complete Blood Count-W/Diff (04/02/2021 9:37 PM TRACK PATROL) Patholo gist Method Time Signature WBC 7.7 3.5 - 10.5 04/02/2021 [facility] x10(9)/L 9:48 PM TRACK PATROL LABORATORY RBC 4.00 3.90 - 04/02/2021 [facility] 5.03 9:48 PM TRACK PATROL LABORATORY x10(12)/L Hemoglobin 11.5 (L) 12.0 - 04/02/2021 [facility] 15.5 g/dL 9:48 PM TRACK PATROL LABORATORY HCT 35.3 34.9 - 04/02/2021 [facility] 44.5 % 9:48 PM TRACK PATROL LABORATORY MCV 88.3 80.0 - 04/02/2021 [facility] 100.0 fL 9:48 PM TRACK PATROL LABORATORY MCH 28.8 27.6 - 04/02/2021 [facility] 33.3 pg 9:48 PM TRACK PATROL LABORATORY MCHC 32.6 31.5 - 04/02/2021 [facility] 35.2 g/dL 9:48 PM TRACK PATROL LABORATORY RDW 11.9 11.9 - 04/02/2021 [facility] 15.5 % 9:48 PM TRACK PATROL LABORATORY Platelets 223 150 - 450 04/02/2021 [facility] x10(9)/L 9:48 PM TRACK PATROL LABORATORY Automated NRBC 0 <=0 /100 04/02/2021 [facility] WBC 9:48 PM TRACK PATROL LABORATORY Neutrophil 4.7 1.7 - 7.0 04/02/2021 [facility] Absolute 10(9)/L 9:48 PM [facility] Lymphocyte 2.1 1.0 - 4.8 04/02/2021 [facility] Absolute 10(9)/L 9:48 PM [facility] Monocytes 0.7 0.2 - 0.9 04/02/2021 [facility] Absolute 10(9)/L 9:48 PM [facility] Eosinophil 0.1 0.0 - 0.5 04/02/2021 [facility] Absolute 10(9)/L 9:48 PM [facility] Basophil 0.0 0.0 - 0.3 04/02/2021 [facility] Absolute 10(9)/L 9:48 PM [facility] Immature Gran % 0.1 0.0 - 0.5 04/02/2021 [facility] % 9:48 PM [facility] Specimen Anatomical Collection Method / Collection Time Recei terra Time (Source) Location / Volume Laterality Blood Venipuncture / 04/02/2021 9:37 04/02/2021 9:42 Unknown PM TRACK [facility]OL PM [facility] Kerry Holliday MD LAB_1 Performing Organization Address [facility] Phon e Number [facility] [address] [place] [address] Extra Gold/SST Tube (04/02/2021 9:37 PM TRACK [facility]) [facility] Method Time Signature Extra Specimen 04/02/2021 [facility] Gold/SST Tube will be held 11:01 PM [facility] Drawn for 5 days Specimen Anatomical Collection Method / Collection Time Recei terra Time (Source) Location / Volume Laterality Blood Venipuncture / 04/02/2021 9:37 04/02/2021 9:42 Unknown PM TRACK [facility]OL PM TRACK [facility]ROL Kerry Holliday MD LAB_1 Performing Organization Address City/[facility] Phon e Number [facility] [address] [place] [address] Extra Blue top tube (04/02/2021 9:37 PM TRACK PATROL) Patholo gist Method Time Signature Extra Blue Specimen 04/02/2021 [facility] Top Drawn will be held 11:01 PM [facility] for 3 days Specimen Anatomical Collection Method / Collection Time Recei terra Time (Source) Location / Volume Laterality Blood Venipuncture / 04/02/2021 9:37 04/02/2021 9:42 Unknown PM TRACK [facility]ROL PM TRACK [facility]ROL Kerry Holliday MD LAB_1 Performing Organization Address City/State/[facility] Phon e Number [facility] [address] [place] [address] (ABNORMAL) Basic Metabolic Panel (04/02/2021 9:37 PM TRACK PATROL) Analysis Performed At Patho logist Time Signature Sodium 138 136 - 145 04/02/2021 [facility] mmol/L 10:11 PM [facility] Potassium 3.8 3.5 - 5.1 04/02/2021 [facility] mmol/L 10:11 PM [facility] Chloride 107 98 - 109 04/02/2021 [facility] mmol/L 10:11 PM [facility] CO2 23 20 - 29 04/02/2021 [facility] mmol/L 10:11 PM [facility] Anion Gap 8 7 - 16 04/02/2021 [facility] mmol/L 10:11 PM [facility] Calcium 8.2 (L) 8.4 - 10.4 04/02/2021 [facility] mg/dL 10:11 PM [facility] BUN 15 7 - 26 04/02/2021 [facility] mg/dL 10:11 PM [facility] Creatinine 0.83 0.55 - 04/02/2021 [facility] 1.02 mg/dL 10:11 PM [facility] GFR, Estimated >60 >60 04/02/2021 [facility] mL/min/1.7 10:11 PM [facility] 3m2 Glucose 98 70 - 100 04/02/2021 [facility] mg/dL 10:11 PM [facility] Comment: The given reference range is fo r the fasting state. Non-fasting reference range for glucose is 70 - 180 mg/dL. Specimen Anatomical Collection Method / Collection Time Recei terra Time (Source) Location / Volume Laterality Blood Venipuncture / 04/02/2021 9:37 04/02/2021 9:42 Unknown PM TRACK PATROL PM TRACK PATROL Kerry Holliday MD LAB_1 Performing Organization Address City/State/ZIP Code Phon e Number [facility] [address] [place] [address] ECG 12 Lead (04/02/2021 9:23 PM TRACK [facility]ROL) P athologist Signature Ventricular Rate 93 BPM [facility] Atrial Rate 93 BPM [facility] P-R Interval 158 ms [facility] QRS Duration 126 ms [facility] QT 384 ms [facility] QTc 477 ms [facility] P Lupton 28 degrees [facility] R Lu[place] 79 degrees [facility] T Lupton 46 degrees [facility] Specimen (Source) Anatomical Collection Method Collection Time Re ceived Time Location / / Volume Laterality 04/02/2021 9:23 PM [facility] Narrative [facility] - 04/02/2021 10:33 PM [facility]ACK [facility] Sinus rhythm Right bundle branch block Abnormal ECG When compared with ECG of 10-MAR-2021 19 :13, Questionable change in QRS axis Confirmed by Leo Hu ([id number]) on 10:32:59 PM Procedure Note Leo Hu MD - 04/02/2021Formatti ng of this note might be different from the original. Sinus rhythm Right bundle branch block Abnormal ECG When compared with ECG of 10-MAR-2021 19 :13, Questionable change in QRS axis Confirmed by Leo Hu ([id number]) on 10:32:59 PM Chris Vincent MD PN ECG ORDERABLES Performing Organization Address City/[facility]/ZIP Code Phon e Number [facility] [address] [place] [address] documented in this encounter Visit Diagnoses Diagnosis Cough Chest pain, unspecified type Triage Assessment Note - Zena Nation RN - 04/02/2021 9:21 PM TRACK PATROL Fabian arrives via EMS from home for 1-2 hx of increased SOB and chest pain. Pt's SOB got so severe that she wasn't able to walk around her house. Pt also reports that her chest pain/pressure changes in location, quality, and severity throughout the day. EKG-R BBB (baseline), BG 81, VSS Hx: Tetrology of Fallot, recent POTS dx, Right BBB, COVID 27 July & Dec 2020 Of note pt's boyfriend and family dx with bronchitis K PATROL documented in this encounter Administered Medications Inactive Administered Medications - up to 3 most recent administrations Medication Order MAR Action Action Date Dose Rate Site acetaminophen (TYLENOL) tablet Given 04/02/2021 10:35 PM TRACK [facility]ROL 1,0 00 mg 1,000 mg 1,000 mg, Oral, ONCE, On Mon04/02/21 at 2245, For 1 dose aluminum-magnesium hydroxide-simethicone Given 04/02/2021 10:36 PM TRACK [facility]ROL 15 mL (MYLANTA) 200-200-20 MG/5ML suspension 1 5 mL 15 mL, Oral, ONCE, On Mon04/02/21 at 2245, For 1 dose, Mix with 15 mL viscous lidocaine 2% for GI Cocktail. lidocaine viscous (XYLOCAINE) 2 % oral liquid Given 10:37 PM TRACK [facility]ROL 15 mL 15 mL 15 mL, Oral, ONCE, On Mon04/02/21 at 2245, For 1 dose, Mix with 15 mL Mylanta for GI Cocktail. sodium chloride 0.9% injection 10-60 mL 10-60 mL, Intravenous, PRN, Line Patency , Line Care, Starting on Mon04/02/21 at 2120, Until 04/03/21 at 0318, For 8 hours documented in this encounter Active and Recently Administered Medications Times are shown in TRACK PATROL. Scheduled Medication Order 04/01/2021 04/02/2021 04/03/2021 acetaminophen (TYLENOL) tablet 1,000 mg (COMPLETED) 2234 (Given - Provider: Zena Nation RN) 1,000 mg, Oral, ONCE, On Mon04/02/21 at 2245, For 1 dose aluminum-magnesium hydroxide-simethicone (MYLANTA) 200-200-20 MG/5ML suspension 15 mL (COMPLETED) 2235 (Given - Provider: Zena taylor RN) 15 mL, Oral, ONCE, On Mon04/02/21 at 22 45, For 1 dose, Mix with 15 mL viscous lidocaine 2% for GI Cocktail. lidocaine viscous (XYLOCAINE) 2 % oral liquid 15 mL (COMPLET ED) 2236 (Given - Provider: Zena Nation RN) 15 mL, Oral, ONCE, On Mon04/02/21 at 22 45, For 1 dose, Mix with 15 mL Mylanta for GI Cocktail. PRN Medication Order 04/01/2021 04/02/2021 04/03/2021 sodium chloride 0.9% injection 10-60 mL 10-60 mL, Intravenous, PRN, Line Patency , Line Care, Starting on Mon04/02/21 at 2120, Until 04/03/21 at 0318, For 8 hours documented in this encounter Additional Health Concerns Infection Onset Date Last Indicated Resolved Time R/O COVID19 04/02/2021 04/02/2021 04/03/2021 3:18 AM TRACK PATROL documented as of this encounter Care Teams Voice Systems Engineer Relationship Specialty Start Date End Date John Stokes MD PCP - General Family Practice 07/08/20 07/14/21 [facility] [address] [place] [id number] documented as of this encounter
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
--- OUTSIDE RECORDS SUMMARY | 2022-01-20 19:49 | XMS_ITS | Encounter Summary ---
:1995 Author Organization [facility] Address [address] [address] Care Team Providers Name Role Phone John Stokes MD Primary Care Provider Reason for Visit Reason Comments Prior Authorization For Medication Encounter Details Date Type Department Care Team Description 05/19/2021 Telephone [facility]ty [facility] [address] Grimes MD Prior Authorization For Gastroenterology [address] Medication [address] [place] [address] [phone] Social History Tobacco Use Types Packs/Day Years Used Date Smoking Tobacco: Never Sex Assigned at Date Recorded Female 10/26/2020 7:23 AM CDT documented as of this encounter Nursing Notes Kiley Payton LPN - 05/21/2021 11:43 AM CST Brand name Canasa is covered by patients insurance. Notified pharmacy that brand name is required. Genoveva Joseph RN - 05/19/2021 12:42 PM CST Pt called, her pharmacy cannot fill the mesalamine (Canasa) supps order as they are not covered by her insurance, she needs to have a PA done. Her ins is thru [employer], current info in pt station. Pt asking if this request could be made urgent d/t her symptoms. PA initiated thru Epic. Routing to Kiley APARICIO specialist. OUS WEEDS AND PEST INSPECTOR documented in this encounter Plan of Treatment Not on filedocumented as of this encounter Visit Diagnoses Not on filedocumented in this encounter Care Teams Business Instructor Relationship Specialty Start Date End Date John Stokes MD PCP - General Family Practice 07/08/20 07/14/21 [facility] [address] [place] [address] documented as of this encounter
--- OUTSIDE RECORDS SUMMARY | 2022-01-20 19:49 | XMS_ITS | Encounter Summary ---
:1995 Author Organization [facility] Address [address] [address] Care Team Providers Name Role Phone John Stokes MD Primary Care Provider Reason for Visit Reason Comments Colonoscopy Prep Encounter Details Date Type Department Care Team Description 04/29/2021 Telephone Specialty Center [address] Vir[address] Grimes MD Colonoscopy Prep Gastroenterology [address] [place] [address] [phone] Social History Tobacco Use Types Packs/Day Years Used Date Smoking Tobacco: Never Sex Assigned at Date Recorded Female 10/26/2020 7:23 AM CDT documented as of this encounter Nursing Notes Adrian Vicente RN - 04/30/2021 1:27 PM CST I may be missing it, but where is the positive COVID test? Was it a home test? I only see negative tests and a mention of finishing quarantine on 04/28. I would try to get her in earlier, if possible. Edgardo Message text Called and spoke with patient. She says her positive COVID was at one of those pop up things on 04/22. So can at the earliest have a colonoscopy on 05/14. Transferred to GI scheduling to see if anythingsooner is available. ER AND CARRY OUT Adrian Vicente RN - 04/29/2021 9:20 AM CST Patient is calling wanting a sooner colonoscopy than currently scheduled on 05/19/21. Has had rectal bleeding x a couple of weeks. COVID positive on 04/29/21 so earliest she could have procedure is 05/14/21. She says symptoms of COVID are fatigue and a headache. She is using the bathroom about 10 times per day and having 1-2 stools,otherwise just blood and clots. Has been seen in ER and by PCP since bleeding started. She says she was given a Rx for hydrocortisone suppositories. Having abd pain but alsohaving her menstrual period. States she has a fever but didn't Know how high. Temp was <100 when in ER. Has been a her cabin in [place] since starting COVID to isolate herself. No recent Abx. ER AND CARRY OUT documented in this encounter Plan of Treatment Not on filedocumented as of this encounter Visit Diagnoses Not on filedocumented in this encounter Care Teams Maintenance Leader Relationship Specialty Start Date End Date John Stokes MD PCP - General Family Practice 07/08/20 07/14/21 [facility] [address] [place] [address] documented as of this encounter
--- OUTSIDE RECORDS SUMMARY | 2022-01-20 19:49 | XMS_ITS | Encounter Summary ---
:1995 Author Organization [facility] Address [address], [place] [address] Care Team Providers Name Role Phone John Stokes MD Primary Care Provider Encounter Details Date Type Department Care Team Description 04/28/2021 Telephone Carmita Mujica MD [facility] [address] [place], [place] [address] [place] [address] [phone] (Wo rk) Social History Tobacco Use Types Packs/Day Years Used Date Smoking Tobacco: Never Sex Assigned at Date Recorded Female 10/26/2020 7:23 AM CDT documented as of this encounter Nursing Notes Krysten Brush - 04/28/2021 11:16 AM CST Fax to [facility] LOADER MEAT Ngoc Rebollar MD - 04/28/2021 11:01 AM CST I printed a colonoscopy order. If you cannot find the print out you can reprint it under the procedures tab in the patient's chart. Please fax the order to [facility]. Please call patient once order is faxed. LOADER MEAT documented in this encounter Plan of Treatment Not on filedocumented as of this encounter Visit Diagnoses Not on filedocumented in this encounter Care Teams Procedure Writer Relationship Specialty Start Date End Date John Stokes MD PCP - General Family Practice 07/08/20 07/14/21 [facility] [address] [place] [address] documented as of this encounter
--- OUTSIDE RECORDS SUMMARY | 2022-01-20 19:49 | XMS_ITS | Encounter Summary ---
:[address] [facility] Address [address], [place] [address] Care Team Providers Name Role Phone Kourtney Grimaldo DO Primary Care Provider Encounter Details Date Type Department Care Team Description 07/26/2021 Telemedicine Specialty Center [address] In[address] ERRONEOUS ENTRY Gastroenterology RJOSSELINE CNP (Primary Dx) [address] [facility]. [address] [place] [phone] (Wo rk) Social History Tobacco Use Types Packs/Day Years Used Date Smoking Tobacco: Never Smokeless Tobacco: Never Sex Assigned at Date Recorded Female 10/26/2020 7:23 AM CDT documented as of this encounter Progress Notes Masha Iniguez APRN, CNP - 07/26/2021 8:20 AM CDT Erroneous entry. documented in this encounter Plan of Treatment Not on filedocumented as of this encounter Visit Diagnoses Diagnosis ERRONEOUS ENTRY - Primary documented in this encounter Care Teams State Comptroller Relationship Specialty Start Date End Date Kourtney Grimaldo DO PCP - General Family Practice 07/15/21 07/29/21 [address] [place], [place] [id number] documented as of this encounter
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
--- OUTSIDE RECORDS SUMMARY | 2022-01-20 19:49 | XMS_ITS | Encounter Summary ---
:1995 Author Organization [employer] Address [address] [address] Care Team Providers Name Role Phone Shannan Santana MD Primary Care Provider Encounter Details Date Type Department Care Team Description 10/01/2021 Telemedicine Shannan Hough, Acute bi lateral low back pain without sciatica (Primary Dx); Medicine/Pediatrics Poor sleep; [address], [address] [place] [address] [place], [place] [address] [phone] Social History Tobacco Use Types Packs/Day Years Used Date Smoking Tobacco: Never Smokeless Tobacco: Never Sex Assigned at Date Recorded Female 10/26/2020 7:23 AM CDT documented as of this encounter Progress Notes Shannan Santana MD - 10/01/2021 10:40 AM CDT Subjective: Today's visit with Fabian was conducted as a scheduled video visit. Has been tired lately, not sleeping well. Able to fall asleep but wakes to use the bathroom and hardto fall back to sleep. Back pain is less recently. Naproxen helps- added last visit. Not using wheelchair as much but also not walking very far. Going to the gym and does bike or elliptical. Taking tizanidine at night- helpsher fall asleep and helps her back. Does not need tramadol anymore. Seeing a therapist 2x weekly. They recommended that she discuss emotional support pet form. Pt is looking for apartments in [facility]. Has a dog that she feels helps her anxiety/depression symptoms. Cannot move without her. Has not returned to work yet. Was planned to be out until 10/07 at last visit. She spoke with her joband they are looking to schedule her soon. However, she lives over an hour away now and not sure shecan travel that far with her back. Also doesn't seem worth the commute for 4 hours of work. Considering transfer to a closer location vs a new job. Objective: There were no vitals taken for this visit. Gen: Awake, alert, NAD HEENT: Moist mucus membranes Resp: Breathing comfortably, speaking in full sentences Psych: Mood and affect appropriate, linear thought Assessment/Plan: Acute bilateral low back pain without sciatica - Overall making good progress. Nearly ready to return to work however, she does have a long commute. Note provided to extend her leave another 2 weeks as she cannot tolerate long commute at this time due to her back. Recommend she work out details with transfer vs returning to same location vs new job. Poor sleep - Suspect due to some anxiety and stress. Continue melatonin and monitor Stress (HRC) - Stable mood, remains on sertraline and sees her therapist weekly. She does get benefit from her dog and note provided for emotional support animal. Shannan Santana MD documented in this encounter Plan of Treatment Not on filedocumented as of this encounter Visit Diagnoses Diagnosis Acute bilateral low back pain without sc iatica - Primary Poor sleep Stress (HRC) Other psychological or physical stress, not elsewhere classified documented in this encounter Care Teams Coal Cutting Machine Operator Relationship Specialty Start Date End Date Shannan Santana MD PCP - General Internal 07/30/21 [address] [address] Medicine/Pediatrics [place] [address] documented as of this encounter
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
--- OUTSIDE RECORDS SUMMARY | 2022-01-20 19:49 | XMS_ITS | Encounter Summary ---
:1995 Author Organization [facility] Address [address] [place] [address] Care Team Providers Name Role Phone John Stokes MD Primary Care Provider Encounter Details Date Type Department Care Team Description 04/26/2021 Partner ED HIM DEPARTMENT Provider, Anastasia block [facility] 04/26/[address] [place] [address] Social History Tobacco Use Types Packs/Day Years Used Date Smoking Tobacco: Never Sex Assigned at Date Recorded Female 10/26/2020 7:23 AM CDT documented as of this encounter Plan of Treatment Not on filedocumented as of this encounter Visit Diagnoses Not on filedocumented in this encounter Care Teams Street And Building Decorator Relationship Specialty Start Date End Date John Stokes MD PCP - General Family Practice 07/08/20 07/14/21 [facility] [address] [place] [address] documented as of this encounter
--- OUTSIDE RECORDS SUMMARY | 2022-01-20 19:49 | XMS_ITS | Encounter Summary ---
:1995 Author Organization [facility] Address [address] [address] Care Team Providers Name Role Phone Shannan Santana MD Primary Care Provider Encounter Details Date Type Department Care Team Description 07/15/2021 Notes/Orders [facility] [address] John Mccarthy, PT Physical Therapy [address] [place] [address] [place] [address] [phone] Social History Tobacco Use Types Packs/Day Years Used Date Smoking Tobacco: Never Smokeless Tobacco: Never Sex Assigned at Date Recorded Female 10/26/2020 7:23 AM CDT documented as of this encounter Progress Notes Stalin Mccarthy PT - 07/15/2021 11:59 PM CDT [facility] Discharge Summary Malinda Medina has not attended therapy since last documented visit. There are no further visits scheduled at this time and Malinda is currently considered discharged from therapy. Unable to assess current level of function and goals due to unplanned discharge. Please see previous visit documentation of status at last treatment. Stalin Mccarthy PT documented in this encounter Plan of Treatment Not on filedocumented as of this encounter Visit Diagnoses Not on filedocumented in this encounter Care Teams Isobutylene Operator Chief Relationship Specialty Start Date End Date Shannan Santana MD PCP - General Internal 07/30/21 [address] [address] Medicine/Pediatrics [place] [address] documented as of this encounter
--- OUTSIDE RECORDS SUMMARY | 2022-01-20 19:49 | XMS_ITS | Encounter Summary ---
:1995 Author Organization [facility] Address [address] [place] [address] Care Team Providers Name Role Phone John Stokes MD Primary Care Provider Reason for Visit Reason Comments ERRONEOUS ENTRY Encounter Details Date Type Department Care Team Description 07/13/2021 Telephone [facility] [address] Kourtney muro, ERRONEOUS ENTRY Medicine [address] [place] [address] [place] [address] [phone] Social History Tobacco Use Types Packs/Day Years Used Date Smoking Tobacco: Never Smokeless Tobacco: Never Sex Assigned at Date Recorded Female 10/26/2020 7:23 AM CDT documented as of this encounter Nursing Notes Alisa Eldridge I - 07/13/2021 10:53 AM CDT documented in this encounter Plan of Treatment Not on filedocumented as of this encounter Visit Diagnoses Not on filedocumented in this encounter Care Teams Planer Chain Offbearer Relationship Specialty Start Date End Date John Stokes MD PCP - General Family Practice 07/08/20 07/14/21 [facility] [address] [place] [address] documented as of this encounter
--- OUTSIDE RECORDS SUMMARY | 2022-01-20 19:49 | XMS_ITS | Encounter Summary ---
:1995 Author Organization [facility] Address [address] [address] Care Team Providers Name Role Phone John Stokes MD Primary Care Provider Reason for Referral Medication Prior Authorization - Closed Specialty Diagnoses / Procedures Referred By Contact Refer red To Contact Edgardo Grimes MD [address] [place], [place] [address] [phone] Referral ID Status Reason Start Date Expiration Date Visits Requ ested Visits Authorized [id number] Closed 1 1 ING TECHNICIAN (Routine) - New Request Specialty Diagnoses / Procedures Referred By Contact Refer red To Contact Diagnoses Rectal bleeding Ngoc Rebollar MD Procedures Endoscopy, Colon, Screening/Diagnostic [address] [place], [place] [address] Referral ID Status Reason Start Date Expiration Date Visits V isits Requested Authorized [id number] New Request 04/28/2021 07/28/2022 1 1 ING TECHNICIAN Reason for Visit (Routine) - New Request Specialty Diagnoses / Procedures Referred By Contact Refer red To Contact Diagnoses Rectal bleeding Ngoc Rebollar MD Procedures Endoscopy, Colon, Screening/Diagnostic [address] [place] [address] Referral ID Status Reason Start Date Expiration Date Visits V isits Requested Authorized [id number] New Request 04/28/2021 07/28/2022 1 1 Encounter Details Date Type Department Care Team Description 05/19/2021 Hospital Encounter [facility] Jacob Grimes MD Rectal bleeding [address] [place] [address] [phone] Social History Tobacco Use Types Packs/Day Years Used Date Smoking Tobacco: Never Sex Assigned at Date Recorded Female 10/26/2020 7:23 AM CDT documented as of this encounter Last Filed Vital Signs Vital Sign Reading Time Taken Comments Blood Pressure 102/62 05/19/2021 11:15 AM MAPPING TECHNICIAN Pulse 70 05/19/2021 11:15 AM MAPPING TECHNICIAN Temperature - - Respiratory Rate 15 05/19/2021 11:15 AM MAPPING TECHNICIAN Oxygen Saturation 99% 05/19/2021 11:15 AM MAPPING TECHNICIAN Inhaled Oxygen Concentration - - Weight 97.1 kg (214 lb) 05/19/2021 9:48 AM MAPPING TECHNICIAN Height 170.2 cm (5' 7) 05/19/2021 9:48 AM MAPPING TECHNICIAN Body Mass Index 33.52 05/19/2021 9:48 AM MAPPING TECHNICIAN documented in this encounter Medications at Time of Discharge Medication Sig Dispensed Refills Start Date End Date mesalamine (CANASA) Insert 1 30 Suppository 11 05/19/2021 1000 MG suppository Suppository (1,000 mg) rectally daily at bedtime. acetaminophen Take 1-2 Tablets 100 Tablet 11 10/13/202009/01 (TYLENOL) 325 MG by mouth every 6 tablet hours as needed for Pain. ibuprofen (MOTRIN) 600 Take 1 Tablet by 40 Tablet 0 021 07/23/2021 MG tablet mouth every 6 hours as needed for Pain. meclizine (ANTIVERT) TAKE ONE TABLET BY 30 Tablet 0 021 08/05/2021 25 MG tablet MOUTH EVERY 6 HOURS NEEDED FOR DIZZINESS/VERTIGO. Norethindrone (LYLEQ 0 08/08 OR) ondansetron Take 1 Tablet by 10 Tablet 0 12/28/2020 022 (ZOFRAN-ODT) 4 MG mouth every 8 disintegrating tablet hours as needed for Nausea. oxyCODONE-acetaminophe Take 2 Tablets by 10 Tablet 0 202007/23/2021 n (PERCOCET) 5-325 MG mouth every 6 tabletIndications: hours as needed Pelvic pain in female for Pain. rizatriptan 0 02/08/2021 08/05/2021 (MAXALT-AIR CARGO AGENT) 10 MG disintegrating tablet SUMAtriptan (IMITREX) TAKE 1 TABLET BY 0 03/11/2007/30/2021 100 MG tablet MOUTH AT ONSET OF MIGRAINE NEEDED. MAY REPEAT 1 TIME AFTER 2 HOURS. MAX 2 TABLETS DAILY AND 3 DAYS PER WEEK documented as of this encounter Progress Notes Elizabeth Faustin RN - 05/19/2021 9:50 AM CST 2L NC O2 applied during the procedure to maintain O2 sat > 92%. Pt tolerated the procedure well. ING TECHNICIAN documented in this encounter Procedure Notes Edgardo Grimes MD - 05/19/2021 9:34 AM CST Patient Name: Malinda Medina Procedure Date: 05/19/2021 9:34 AM Date of : 1995 Admit Type: Outpatient Age: 25 Gender: Female Note Status: Finalized Attending MD: Edgardo Grimes , Procedure: Colonoscopy Indications: Hematochezia Providers: Elizabeth Miller Referring MD: Ngoc Rebollar Medicines: Midazolam 4 mg IV, Fentanyl 100 micrograms IV Procedure: Pre-Anesthesia Assessment: - The risks and benefits of the procedure and the sedation options and risks were discussed with the patient. All questions were answered and informed consent was obtained. After I obtained informed consent, the scope was passed under direct vision. Throughout the procedure, the patient's blood pressure, pulse, and oxygen saturations were monitored continuously. The [id number] was introduced through the anus and advanced to the terminal ileum, with identification of the appendiceal orifice and IC valve. The colonoscopy was performed without difficulty. The patient tolerated the procedure well. The quality of the bowel preparation was adequate to identify polyps. The quality of the bowel preparation was evaluated using the BBPS (Limestone Bowel Preparation Scale) with scores of: Right Colon = 3, Transverse Colon = 3 and Left Colon = 3 (entire mucosa seen well with no residual staining, small fragments of stool or opaque liquid). The total BBPS score equals 9. Findings: The perianal and digital rectal examinations were normal. The terminal ileum appeared normal. Inflammation characterized by congestion (edema), erythema, friability, granularity, loss of vascularity and mucus was found in a continuous and circumferential pattern from the anus to the rectum and in the cecum (cecal patch). The sigmoid colon, the descending colon, the splenic flexure, the transverse colon, the hepatic flexure and the ascending colon were spared. The inflammation was severe - the findings are new. Biopsies were taken with a cold forceps for histology. The exam was otherwise without abnormality. Moderate Sedation: Moderate (conscious) sedation was administered by the endoscopy nurse and supervised by the endoscopist. The patient's oxygen saturation, heart rate, blood pressure and response to care were monitored. Total physician intraservice time was 14 minutes. Impression: 25yo female with rectal bleeding. Colonoscopy to evaluate. - The examined portion of the ileum was normal. - Proctitis ulcerative colitis. Inflammation was found from the anus to the rectum and in the cecum (cecal patch around appendiceal orifice). This was severe, new diagnosis. Biopsied. - The examination was otherwise normal. Recommendation: - Discharge patient to home. - Return to GI clinic at appointment to be scheduled. - Await pathology results. - Use Canasa 1000 mg suppository 1 per rectum QHS. Procedure Code(s): --- Professional --- 41851, Colonoscopy, flexible; with biopsy, single or multiple G0500, Moderate sedation services provided by the same physician or other qualified health family member caretaker performing a gastrointestinal endoscopic service that sedation supports, requiring the presence of an independent trained observer to assist in the monitoring of the patient's level of consciousness and physiological status; initial 15 minutes of intra-service time; patient age 5 years or older (additional time may be reported with 20881, as appropriate) Diagnosis Code(s): --- Professional --- K51.20, Ulcerative (chronic) proctitis without complications K92.1, Melena (includes Hematochezia) CPT copyright 2020 [employer]. All rights reserved. The codes documented in this report are preliminary and upon director medicaid review may be revised to meet current compliance requirements. Edgardo Grimes, 05/19/2021 10:33:52 AM Number of Addenda: 0 Note Initiated On: 05/19/2021 9:34 AM Endoscopy Report ING TECHNICIAN documented in this encounter Plan of Treatment Not on filedocumented as of this encounter Procedures Procedure Name Priority Date/Time Associated Diagnosis Comme nts SURGICAL PATHOLOGY, Routine 05/19/2021 10:28 AM R esults for this GI MAPPING TECHNICIAN procedure are i n the results section. POCT URINE Routine 05/19/2021 10:03 AM Results for this MAPPING TECHNICIAN procedure are i n the results section. ENDOSCOPY, COLON, STAT 05/19/2021 9:34 AM Rectal bleeding R esults for this SCREENING/DIAGNOSTI MAPPING TECHNICIAN procedur e are in C the results section. documented in this encounter Results Surgical Path - GI (05/19/2021 10:28 AM MAPPING TECHNICIAN) Component Value Ref Test Analysis Performed At [facility] gist Range Method Time Signature Case Report Surgical Pathology ?Case: [id number] ? 05/20/2021 [facility] Authorizing Provider: ??Edgardo Zabala am, MD ?Collected: ? 05/19/2021 1028 ? 12:29 PM LABO RATORY Ordering Location: ? [facility] [address] ?Received: ?05/19/2021 1041 ? MAPPING TECHNICIAN ? Endoscopy ? Pathologist: ? Waqar Mcmahon MD ? Specimen: ?Colon, rectum ? FINAL A. Colon, rectum, biopsy: 05/20/2021 MET HODIST Electronically DIAGNOSIS Diffuse chronic active colitis 12:29 PM LABORATORY signed by JEFFRY Mcmahon MD on Comment: The findings are co nsistent with inflammatory bowel disease in the appropriate clinical setting, though infectious causes of colitis should be excluded clinically. No granulomas or dysplasia identified. 05/20/2021 at 12:29 PM Clinical Rectal Bleeding 05/20/2021 [facility] Information 12:29 PM LABORATORY MAPPING TECHNICIAN Microscopic Microscopic 05/20/2021 [facility] Description examination is 12:29 PM LABORATORY performed. MAPPING TECHNICIAN Gross A: 05/20/2021 [facility] Description The specimen is received in formalin and labeled with the patient's name and Colon, rectum. The specimen consists of multiple ortiz-white irregular soft tissue fragments, ranging from 0.1 cm up to 0.4 c 12:29 PM LABORATORY m. The specimen is filtered and entirely submitted in one ca ssette. DJ MAPPING TECHNICIAN Embedded 05/20/2021 [facility] Images 12:29 PM LABORATORY MAPPING TECHNICIAN Specimen Anatomical Collection Method Collection Time Receive d Time (Source) Location / / Volume Laterality Tissue COLON STRUCTURE / 05/19/2021 10:28 2021 Unknown AM MAPPING TECHNICIAN 10:41 AM MAPPING TECHNICIAN Edgardo Grimes MD LAB PATHOLOGY Performing Organization Address City/State/ZIP Code Phon e Number [facility] [address] [place] [address] POCT urine (05/19/2021 10:03 AM MAPPING TECHNICIAN) [facility] Method Time Signature Urine Negative Negative POCT Test - POC Control Line Yes POCT Present, Clear Background - Internal control Cartridge Lot# [id number] POCT Specimen (Source) Anatomical Collection Method Collection Time Re ceived Time Location / / Volume Laterality Urine 05/19/2021 10:03 AM MAPPING TECHNICIAN Edgardo Grimes MD ET POINT OF CARE TEST ENTER/ EDIT ORDERABLES Performing Organization Address City/State/ZIP Code Phon e Number POCT Endoscopy, Colon, Screening/Diagnostic (05/19/2021 9:34 AM MAPPING TECHNICIAN) Specimen (Source) Anatomical Collection Method Collection Time Re ceived Time Location / / Volume Laterality 05/19/2021 9:34 AM MAPPING TECHNICIAN Narrative GI ([facility]) - 05/19/2021 9:34 AM MAPPING TECHNICIAN Patient Name: Malinda Medina Procedure Date: 05/19/2021 [...] yossi amaya were discussed with the ? patien t. All questions were ? answer ed and informed consent was ? obtain ed. ? After I obtained informed consent, ? the sc ope was passed under direct ? vision . Throughout the procedure, ? the pa tient's blood pressure, ? pulse, and oxygen saturations [...] preparation was evaluated ? using the BBPS (Limestone Bowel ? Prepar ation Scale) with scores [...] ? - Proc titis ulcerative colitis. ? Inflam mation was found from the ? anus t o the rectum and in the cecum ? (cecal patch around appendiceal ? orific e). This was severe, new ? diagno sis. Biopsied. ? - The examination was otherwise ? normal . Recommendation: ?- Discharge p atient to home. ? - Retu rn to GI clinic at ? appoin tment to be scheduled. ? - Lydiai t pathology results. ? - Use Canasa 1000 mg suppository 1 ? per re ctum QHS. Procedure Code(s): ? --- Professiona l --- ? 47986, Colonoscopy, flexible; with ? biopsy , single or multiple ? G0500, Moderate sedation services ? provid ed by the same physician or ? other qualified health care ? profes sional performing a ? gastro intestinal endoscopic service ? that s edation supports, requiring ? the pr esence of an independent ? pamelae peter observer to assist in the ? monito ring of the patient's level ? of con sciousness and physiological ? status ; initial 15 minutes of ? intra- service time; patient age 5 ? years or older (additional time may ? be rep orted with 36621, as ? approp riate) Diagnosis Code(s): ? --- Professiona l --- ? K51.20 , Ulcerative (chronic) ? procti tis without complications ? K92.1, Melena (includes ? Hemato chezia) CPT copyright 2020 [employer]. All rights reserved. The codes documented in this report are preliminary and upon director medicaid review may be revised to meet current [...] and oxygen saturations were monitored continuously. The [id number] was introduced through the anus and advanced to the terminal ileum, with identification of the appendiceal orifice and IC valve. The colonoscopy was performed without difficulty. The patient tolerated the procedure well. The quality of the bowel preparation was adequate to identify polyps. The quality of the bowel preparation was evaluated using the BBPS (Limestone Bowel Preparation Scale) with scores of: Right [...] otherwise normal. Recommendation: - [facility]. - Return to GI clinic at appointment to be scheduled. - Await pathology results. - Use Canasa 1000 mg suppository 1 per rectum QHS. Procedure Code(s): --- Professional --- 04368, Colonoscopy, flexible; with biopsy, single or multiple G0500, Moderate sedation services provided by the same physician or other qualified health family member caretaker performing a gastrointestinal endoscopic service that sedation supports, requiring the presence of an independent trained observer to assist in the monitoring of the patient's level of consciousness and physiological status; initial 15 minutes of intra-service time; patient age 5 years or older (additional time may be reported with 12716, as appropriate) Diagnosis Code(s): --- Professional --- K51.20, Ulcerative (chronic) proctitis without complications K92.1, Melena (includes Hematochezia) CPT copyright 2020 [employer]. All rights reserved. The codes documented in this report are preliminary and upon director medicaid review may be revised to meet current compliance requirements. Edgardo Grimes, 05/19/2021 10:33:52 AM Number of Addenda: 0 Note Initiated On: 05/19/2021 9:34 AM Endoscopy Report Ngoc Rebollar MD PN GI PROCEDURE ORDERABLES Performing Organization Address City/State/ZIP Code Phon e Number [facility] ([facility]) [facility] ([facility]) [place], [place] documented in this encounter Visit Diagnoses Diagnosis Rectal bleeding Hemorrhage of rectum and anus documented in this encounter Administered Medications Inactive Administered Medications - up to 3 most recent administrations Medication Order MAR Action Action Date Dose Rate Site fentaNYL (SUBLIMAZE) injection Given 05/19/2021 10:32 AM MAPPING TECHNICIAN 200 mcg 25-100 mcg 25-100 mcg, Intravenous, PRN, Other, Moderate Sedation, Starting on Mon05/19/21 at 0947, Until Rose 05/20/21 at 0205, Administer in 25-100 mcg increments as directed by endoscopy procedure Practitioner up to a total of 300 mcg. (Give only during endoscopy procedure visit) midazolam (VERSED) injection 0.5-2 mg Given 05/19/2021 10:32 AM MAPPING TECHNICIAN 4 mg 0.5-2 mg, Intravenous, PRN, Sedation, Starting on Mon05/19/21 at 0947, Until Rose 05/20/21 at 0205, Administer in 0.5-2 mg increments as directed by endoscopy procedure Practitioner up to a total of 8 mg. (Give only during endoscopy procedure visit) sodium chloride 0.9% injection 10-60 mL Given 05/19/2021 10:32 AM MAPPING TECHNICIAN 10 mL 10-60 mL, Intravenous, PRN, Line Patency, For port access and deaccess only, Starting on Mon05/19/21 at 0941, Until Rose 05/20/21 at 0205 documented in this encounter Care Teams Addressing Machine Operator Relationship Specialty Start Date End Date John Stokes MD PCP - General Family Practice 07/08/20 07/14/21 [facility] [address] [place] [address] documented as of this encounter
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
--- OUTSIDE RECORDS SUMMARY | 2022-01-20 19:49 | XMS_ITS | Encounter Summary ---
:1995 Author Organization [facility] Address [address] [place] [address] Care Team Providers Name Role Phone John Stokes MD Primary Care Provider Reason for Visit Reason Comments CHEST PAIN SOB (SHORTNESS OF BREATH) Encounter Details Date Type Department Care Team Description 04/02/2021 Nurse Triage [facility] Nurse Line John Stokes, CHEST PAIN; SOB [address] [facility] Jessica MIGUEL (SHORTNESS OF BREATH) [place] [address] [facility] [phone] [address] [place], [place] [id number] Social History Tobacco Use Types Packs/Day Years Used Date Smoking Tobacco: Never Sex Assigned at Date Recorded Female 10/26/2020 7:23 AM CDT documented as of this encounter Nursing Notes Julita Corey RN - 04/02/2021 7:51 PM CST Spoke with pt who states she has trouble breathing with intermittent chest pain, pulse is 99-101, oxygenation is 99-100% has a productive cough, rates chest pain 8/10, is short of breath at rest and isspeaking in short sentences. Pt does have a cardiac history. Denies fever or wheezing. Problem list reviewed as related to this call. Reason for Disposition ??? [1] MODERATE difficulty breathing (e.g., speaks in phrases, SOB even at rest, pulse 100-120) AND[2] NEW-onset or WORSE than normal Protocols used: BREATHING [id number] ROLLER OPERATOR documented in this encounter Plan of Treatment Not on filedocumented as of this encounter Visit Diagnoses Not on filedocumented in this encounter Care Teams Retail Pos Specialist Relationship Specialty Start Date End Date John Stokes MD PCP - General Family Practice 07/08/20 07/14/21 [facility] [address] [place] [address] documented as of this encounter
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
--- OUTSIDE RECORDS SUMMARY | 2022-01-20 19:49 | XMS_ITS | Encounter Summary ---
:1995 Author Organization [employer] Address [address] [place] [address] Care Team Providers Name Role Phone John Stokes MD Primary Care Provider Reason for Visit Reason Comments Colonoscopy Prep Encounter Details Date Type Department Care Team Description 05/18/2021 Nurse Triage Careline Unknown, Physician Colonoscopy Prep [address] [place], [place] [address] [place], [place] [phone] [id number] (Wo rk) Social History Tobacco Use Types Packs/Day Years Used Date Smoking Tobacco: Never Sex Assigned at Date Recorded Female 10/26/2020 7:23 AM CDT documented as of this encounter Nursing Notes Felicity Denise RN - 05/18/2021 8:13 PM CST 8:20 PM Returned call to pt Verified patient identity: Yes Situation/Background (brief explanation of current symptoms/situation): Pt states she is having a colonoscopy at tomorrow (is to be there at 9:20am) and states she took her bisacodyl tabs and started drinking the GoLytely about 5:45pm but had vomiting, so didn't keep it all down (but did drink all the prep she was supposed to at that time). States she is passing clear to yellow stools. Wondering if any concerns with the vomiting earlier or if she should drink more prep earlier. Knows she is supposed to drink the second half of the prep 4 hours before the procedure, but wondering what she should do if she starts vomiting again at that time. Reviewed with patient pertinent medical history (as it related to the call): Yes as above and This commercial underwriter reviewed patients problem list Reviewed with patient pertinent medications (as they relate to call): Yes - as above and reviewed pt's medication list Reviewed with patient pertinent allergies (as they relate to call): Allergies Allergen Reactions ??? Estrogens Headache ??? [place] [Hydrocodone-Acetaminophen] Other, see comments Nausea lightheaded Reason for Disposition ??? Bowel prep for colonoscopy, questions about Protocols used: COLONOSCOPY SYMPTOMS AND [id number] Advised pt to call back if further questions or concerns Pt states understanding and agrees with plan and denies further questions at this time. Felicity May RN 05/18/2021, 8:29 PM CROCHETER Christian Rios - 05/18/2021 7:11 PM CST Verified patient identity using three identifiers: Yes Caller's relationship to patient: Self Do you get your primary care at a HP or PN clinic: PN Are you calling about a related concern: No Do you see a PN specialist for the reason you are calling? Yes HP Select Member: No Symptoms Describe the reason for call/symptoms (include location and duration if applicable): Pt states that she has colonoscopy schedule tomorrow and asked a callback from the careline nurse for prep advise. Plan:The current callback time to speak with a nurse is 2hrs. If your symptoms change or worsen, or if you have not received a call back in the stated timeframe, please call us back CROCHETER documented in this encounter Plan of Treatment Not on filedocumented as of this encounter Visit Diagnoses Not on filedocumented in this encounter Care Teams Consulting Psychologist Relationship Specialty Start Date End Date John Stokes MD PCP - General Family Practice 07/08/20 07/14/21 [facility] [address] [place] [address] documented as of this encounter
--- OUTSIDE RECORDS SUMMARY | 2022-01-20 19:49 | XMS_ITS | Encounter Summary ---
:1995 Author Organization [facility] Address [address] [place] [address] Care Team Providers Name Role Phone John Stokes MD Primary Care Provider Reason for Visit Reason Comments RECTAL BLEEDING ABDOMINAL PAIN Encounter Details Date Type Department Care Team Description 05/29/2021 Nurse Triage Careline Unassigned, RECTAL BLEEDING; [address] Provider ABDOMINAL PAIN [place], [place] [address] [place] [address] [place] [address] Social History Tobacco Use Types Packs/Day Years Used Date Smoking Tobacco: Never Sex Assigned at Date Recorded Female 10/26/2020 7:23 AM CDT documented as of this encounter Nursing Notes Coty De Santiago RN - 05/29/2021 2:49 PM CST Reason for Disposition ??? MILD rectal bleeding (more than just a few drops or streaks) Protocols used: RECTAL [id number] Pt advised if she has any increased bleeding or another episode of rectal bleeding to seek ED eval promptly. Pt verbalized understanding. Coty Salomon RN Careline 2:57 PM 05/29/2021 TS ANNOUNCER Coty De Santiago, RN - 05/29/2021 2:43 PM CST Verified patient identity: Yes per Pt Situation/Background (brief explanation of current symptoms/situation): Blood in stool noted today x1 with BM. History of colitis. Pt has her period also so has vaginal bleeding at the same time. I am in a flare. Pretty painful and just a ton of blood. Dripping blood vaginally and dark red blood in the stool prior to calling. Stool was hard. Blood noted in toilet water, mixed with stool and on TP. Unsure source of blood clots. pretty small. smaller then a dime. Denies pain at this time. Abd pain yesterday for apx 6 hours. COVID vaccine received yesterday. Pt states blood in stool means she has a colitis flare. Changing pad with period x 2 so far today. Denies feeling dizzy or faint. Reviewed with patient pertinent medical history (as it related to the call): Yes ulcerative colitis. Reviewed with patient pertinent medications (as they relate to call): Yes Canasa. Reviewed with patient pertinent allergies (as they relate to call): Yes Allergies Allergen Reactions ??? Estrogens Headache ??? [place] [Hydrocodone-Acetaminophen] Other, see comments Nausea lightheaded TS ANNOUNCER Carla Melgar - 05/29/2021 2:41 PM CST Verified patient identity using three [...] call/symptoms (include location and duration if applicable): Patient has rectal bleeding. Also having some abdominal pain. Plan:Caller transferred directly to CareLine nurse. TS ANNOUNCER documented in this encounter Plan of Treatment Not on filedocumented as of this encounter Visit Diagnoses Not on filedocumented in this encounter Care Teams Larry Operator Relationship Specialty Start Date End Date John Stokes MD PCP - General Family Practice 07/08/20 07/14/21 [facility] [address] [place] [address] documented as of this encounter
--- OUTSIDE RECORDS SUMMARY | 2022-01-20 19:49 | XMS_ITS | Encounter Summary ---
:1995 Author Organization [facility] Address [address], [place] [address] Care Team Providers Name Role Phone Shannan Santana MD Primary Care Provider Reason for Referral Procedure/Equipment (Routine) - New Request Specialty Diagnoses / Procedures Referred By Contact Refer red To Contact Diagnoses [place] [address] [place] [address] Referral ID Status Reason Start Date Expiration Date Visits V isits Requested Authorized [id number] New Request 10/22/2021 01/21/2023 1 1 Scheduling Instructions Your provider has recommended an appoint ment with Cardiac Rehab. You may call [phone] to schedule your appointmen t. Outpatient Cardiac Rehab starts off at a level called 'Phase 2'. We suggest you c ontact your health insurance company to verify if 'Phase 2 Cardiac Rehab' is a c overed benefit under your plan. Encounter Details Date Type Department Care Team Description 10/22/2021 Telemedicine Shannan Hough, Tetralog y of Fallot (Primary Dx); Medicine/Pediatrics Acute bilateral low back pain without sc iatica; [address], [address] [place] [address] [place] [address] [id number] [phone] Social History Tobacco Use Types Packs/Day Years Used Date Smoking Tobacco: Never Smokeless Tobacco: Never Sex Assigned at Date Recorded Female 10/26/2020 7:23 AM CDT documented as of this encounter Progress Notes Shannan Santana MD - 10/22/2021 12:00 PM CDT Subjective: Today's visit with Fabian was conducted as a scheduled video visit. Last seen 10/01. At that time, was given note to delay restart at work. She has since decided to leave the position and has found another job- started this week. Working at [employer] and won'tbe able to wear her [employer] watch at work. She requests a letter for work. Back pain has overall been stable. Takes naproxen prn with relief. She is working with her chiropractor and able to get around ok. Also seen by Cardiology at [facility] yesterday. H/o tetralogy of Fallot and echo was stable. They recommended that she do cardiac rehab- pt not able to travel there weekly and was told she could do it closer. Would like a referral placed through [facility]. Additionally, she will be moving to a new apt 11/13 and needs a note for a pet. She has a cat and dog that do help with her anxiety and loneliness as she is no longer living with her boyfriend. Requests a letter for this as well. Objective: There were no vitals taken for this visit. Gen: Awake, alert, NAD HEENT: Moist mucus membranes Resp: Breathing comfortably, speaking in full sentences Assessment/Plan: Tetralogy of Fallot - Reviewed cardiology eval from 10/21. Will place referral for cardiac rehab as recommended. Pt to call to schedule at closest location - Outpatient Cardiac Rehab Referral Acute bilateral low back pain without sciatica - Overall stable, pain controlled and pt working with chiro for adjustments and doing home exercises. She is able to return to work 11/08. Will continue orientation for her new job as this does not require anything strenuous. Will notify previous employer that she is quitting. Stress (HRC) - Overall improving since break up with boyfriend and move into mom's house. She is on SSRI and doing ok. She does get benefit from her pets and will write letter for new apartment Shannan Santana MD documented in this encounter Plan of Treatment Scheduled Referrals Name Type Priority Associated Diagnoses Order S [facility] Outpatient Cardiac Rehab Referral Routine Tetralogy of [place] Ordered: 10/22/2021 Referral documented as of this encounter Visit Diagnoses Diagnosis Tetralogy of Fallot - Primary Acute bilateral low back pain without sc iatica Stress (HRC) Other psychological or physical stress, not elsewhere classified documented in this encounter Care Teams Electron Gun Assembler Relationship Specialty Start Date End Date Shannan Santana MD PCP - General Internal 07/30/21 [address] [address] Medicine/Pediatrics [place] [address] documented as of this encounter
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
--- OUTSIDE RECORDS SUMMARY | 2022-01-20 19:49 | XMS_ITS | Encounter Summary ---
:1995 Author [facility] Address [address] [place] [address] Care Team Providers Name Role Phone John Stokes MD Primary Care Provider Encounter Details Date Type Department Care Team Description 05/11/2021 Notes/Orders Specialty [facility] [address] Vir[address] Grimes MD Gastroenterology [address] [place] [address] [phone] Social History Tobacco Use Types Packs/Day Years Used Date Smoking Tobacco: Never Sex Assigned at Date Recorded Female 10/26/2020 7:23 AM CDT documented as of this encounter Progress Notes Adrian Vicente RN - 05/11/2021 8:58 AM CST Patient calling today about her upcoming colonoscopy. Chart review and Rx's sent. Patient has concerns about nausea after sedation. Questions answered. 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
--- OUTSIDE RECORDS SUMMARY | 2022-01-20 19:49 | XMS_ITS | Encounter Summary ---
:1995 Author Organization [facility] Address [address] [place] [address] Care Team Providers Name Role Phone John Stokes MD Primary Care Provider Encounter Details Date Type Department Care Team Description 04/02/2021 Orders Only HIM DEPARTMENT Provider, Anastasia block MD Interface provid er interface provider, [place] [id number] Social History Tobacco Use Types Packs/Day Years Used Date Smoking Tobacco: Never Sex Assigned at Date Recorded Female 10/26/2020 7:23 AM CDT documented as of this encounter Plan of Treatment Not on filedocumented as of this encounter Procedures Procedure Name Priority Date/Time Associated Diagnosis Comme nts EKG 04/02/2021 Results for thi s procedure are in the resu lts section. documented in this encounter Results EKG (04/02/2021) Narrative This result has an attachment that is no t available. 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
--- OUTSIDE RECORDS SUMMARY | 2022-01-20 19:50 | XMS_ITS | Encounter Summary ---
:1995 Author [facility] Address [address], [place] [address] Care Team Providers Name Role Phone John Stokes MD Primary Care Provider Reason for Visit Reason Comments Surgery, After Care Encounter Details Date Type Department Care Team Description 10/19/2020 [facility] [place] [facility] Surgery, After Care Obstetrics/Gynecolog y [address] [facility] 5[address] [place] [phone] (Wo rk) Social History Tobacco Use Types Packs/Day Years Used Date Smoking Tobacco: Never Sex Assigned at Date Recorded Female 10/26/2020 7:23 AM CDT documented as of this encounter Nursing Notes Meir Schrader RN - 10/19/2020 2:38 PM CDT Pt called back with one more post op question. She is wondering when she could resume intercourse. Reviewed PN post op laparoscopy guidelines. Okay for intercourse when vag bldg has stopped. Pt is on day 7 post op, no bldg. Advised to wait until day 10, and if no bldg, okay. Pt agrees to plan and verbalizes understanding. Sammi Sotomayor RN - 10/19/2020 1:16 PM CDT Left msg with cheikh Taylor advice. Rima Mendiola MD - 10/19/2020 1:09 PM CDT She can return now. She will just need to monitor her body. If she is having pain, she will need to stop. Erika Haywood RN - 10/19/2020 12:59 PM CDT Pt calling in, 6 days post op, asking when she can return to the gym. Had surgery on 10/13 for Hemorrhagic ovarian cyst, Hemoperitoneum, and removal of Malpositioned IUD. Has 2 week post op appt scheduled for 10/27. Fwd to Dr. Mendiola in clinic, as she assisted with surgery. Dr. Hayden is not in clinic until endNov. documented in this encounter Plan of Treatment Not on filedocumented as of this encounter Visit Diagnoses Not on filedocumented in this encounter Care Teams Commercial Instructor Supervisor Relationship Specialty Start Date End Date John Stokes MD PCP - General Family Practice 07/08/20 07/14/21 [facility] [address] [place] [address] documented as of this encounter
--- OUTSIDE RECORDS SUMMARY | 2022-01-20 19:50 | XMS_ITS | Encounter Summary ---
:1995 Author Organization [employer] Address [address], [place] [address] Care Team Providers Name Role Phone John Stokes MD Primary Care Provider Reason for Visit Reason Comments PAIN, RLQ Nausea Encounter Details Date Type Department Care Team Description 12/29/2020 Nurse Triage [facility], PAIN, RLQ; Nausea Obstetrics/Gynecolog y [address] [facility] [address] [place] [address] [place], [place] [phone] (Wo rk) Social History Tobacco Use Types Packs/Day Years Used Date Smoking Tobacco: Never Sex Assigned at Date Recorded Female 10/26/2020 7:23 AM CDT documented as of this encounter Nursing Notes July Dejesus RN - 12/29/2020 11:50 AM CDT Patient calling to report continued right ovarian pain from her visit yesterday in the ED. She was discharged with roxicodone and zofran. Pain is currently at a 2/10 right now. States she is very nauseated and has taken 2 zofran with minimal relief. Feels like she may pass out. Reviewed with patient if she feels like she may pass out she needs to call for an ambulance if she feels she is stable and feeling nauseated ok to go to urgent care for evaluation. US shows a confirmed right ovarian cyst 4.3 cm. Reason for Disposition ??? Patient wants to be seen Protocols used: ABDOMINAL PAIN - [id number] documented in this encounter Plan of Treatment Not on filedocumented as of this encounter Visit Diagnoses Not on filedocumented in this encounter Care Teams Software Quality Assurance Engineer Relationship Specialty Start Date End Date John Stokes MD PCP - General Family Practice 07/08/20 07/14/21 [facility] [address] [place] [address] documented as of this encounter
--- OUTSIDE RECORDS SUMMARY | 2022-01-20 19:50 | XMS_ITS | Encounter Summary ---
:1995 Author Organization [facility] Address [address], [place] [address] Care Team Providers Name Role Phone John Stokes MD Primary Care Provider Encounter Details Date Type Department Care Team Description 03/18/2021 Lab Visit [place] [facility] Other fatigue [address] [place], [place] [address] Social History Tobacco Use Types Packs/Day Years Used Date Smoking Tobacco: Never Sex Assigned at Date Recorded Female 10/26/2020 7:23 AM CDT documented as of this encounter Plan of Treatment Not on filedocumented as of this encounter Procedures Procedure Name Priority Date/Time Associated Diagnosis Comme nts TEST Routine 03/18/2021 9:53 AM Other fatigue Result s for this (URINE) FASHION BUYER procedure are i n the results section. documented in this encounter Results Test Screen Urine (03/18/2021 9:53 AM FASHION BUYER) P athologist Signature HCG, Urine Negative Negative 03/18/2021 [place] 10:00 AM [facility] Specimen Anatomical Collection Method Collection Time Receive d Time (Source) Location / / Volume Laterality Urine Non-blood 03/18/2021 9:53 AM 9:53 Collection / FASHION BUYER AM FASHION BUYER Unknown Sara Kirk MD LAB_1 Performing Organization Address City/State/ZIP Code Phon e Number [facility] [address] [place] [address] documented in this encounter Visit Diagnoses Diagnosis Other fatigue documented in this encounter Care Teams Glass Cutting Machine Feeder Relationship Specialty Start Date End Date John Stokes MD PCP - General Family Practice 07/08/20 07/14/21 [facility] [address] [place] [address] documented as of this encounter
--- OUTSIDE RECORDS SUMMARY | 2022-01-20 19:50 | XMS_ITS | Encounter Summary ---
:1995 Author Organization [facility] Address [address], [place] [address] Care Team Providers Name Role Phone John Stokes MD Primary Care Provider Reason for Visit Reason Comments Nausea LIGHTHEADED--ED Abdominal Pain Encounter Details Date Type Department Care Team Description 12/29/[address] [facility] [address], Near syncope; Urgent Care VIRAJ Isaac; [address] [facility] [address] [place] [address] pain in female [address] [facility], [place] [address] [phone] Social History Tobacco Use Types Packs/Day Years Used Date Smoking Tobacco: Never Sex Assigned at Date Recorded Female 10/26/2020 7:23 AM CDT documented as of this encounter Last Filed Vital Signs Vital Sign Reading Time Taken Comments Blood Pressure 120/71 12/29/2020 12:25 PM CDT Pulse 73 12/29/2020 12:24 PM CDT Temperature 37 ??C (98.6 ??F) 12/29/2020 12:24 PM CDT Respiratory Rate 18 12/29/2020 12:24 PM CDT Oxygen Saturation 99% 12/29/2020 12:24 PM CDT Inhaled Oxygen Concentration - - Weight - - Height - - Body Mass Index - - documented in this encounter Progress Notes Will Hernandez, VIRAJ - 12/29/2020 1:00 PM CDT dict Will Hernandez PA-C - 12/29/2020 12:00 AM CDT NAME: JUANA SCHNEIDER CSN: [id number] CLINIC NOTE DATE OF SERVICE: 12/29/2020 : 1995 SUBJECTIVE: 25-year-old female presents for lightheadedness and nausea. The patient was seen in the emergency room yesterday for an ovarian cyst. She had a hemorrhagic ovarian cyst a couple months ago requiring surgery and so she had an ultrasound that showed evidence of a cyst but nothing more concerning. They gave her some Onaway to use for pain. She has been taking that but it has made her feel lightheaded and nauseous and she is wondering if there is anything else she could take in place of that.She has had no fever or chills. The pain is well- controlled with the Onaway but just the way it makesher feel she would prefer to use something else if possible. She has used oxycodone in the past without problems. She has had no new symptoms from yesterday. The workup and evaluation and note was verythorough. Please see that for further information. The patient initially said that she could have felt near-syncopal but upon further questioning, she is not truly near-syncopal. It is just that she feels lightheaded and nauseous. There is no tunnel vision. No focal neurologic symptoms. No chest pain or shortness of breath. The abdominal pain has not changed since yesterday. No flank pain. No fever or chills. No urine symptoms. No problems with bowel movements. She is not having right lower quadrantpain. It is right-sided pelvic pain. COMPLETE REVIEW OF SYSTEMS: Otherwise, negative except for noted above. PAST MEDICAL HISTORY, SURGICAL, SOCIAL HISTORY, MEDICATIONS, AND VITAL SIGNS: All updated and reviewed by myself in [facility]. ALLERGIES: ALL UPDATED AND REVIEWED BY MYSELF IN [facility]. PHYSICAL EXAM: GENERAL: Well-developed, well-nourished male, no apparent distress. SKIN: Warm and dry. HEENT: Eyes: Sclerae are nonicteric. Conjunctivae not injected. Oral mucosa moist and pink. NECK: Supple without adenopathy or thyromegaly. LUNGS: Clear throughout. HEART: Regular rate and rhythm. BACK: Negative CVAT. ABDOMEN: Shows some tenderness in the right suprapubic region, but no rebound tenderness or muscle guarding. No palpable masses or organomegaly. EKG shows a right bundle branch block which is normal for this patient. ASSESSMENT: 1.Lightheadedness. 2.Pelvic pain in a female. PLAN: I am going to take her off the Onaway. Since she has used oxycodone in the past, I will give her that. I will give her Percocet #10 to use. She has an appointment in primary care in 2 days. She will keep that appointment. Symptomatic treatment as needed. I do not see any evidence of any worsening symptoms, and she has already had a thorough evaluation but if she develops any new or worsening symptoms, she was told she would have to go straight to the emergency room. Patient was agreeable to this plan, left in stable condition. VIRAJ GREEN/MAUREEN /[id number] documented in this encounter Nursing Notes Rosa Hay RN - 12/29/2020 1:00 PM CDT Juana Schneider is a 25 y.o.female presents to the Urgent Care for Nausea Patient presents with nausea, stomach pain and lightheadedness. Was seen in the ED yesterday with similar symptoms. During triaging she is crying but states she is unsure why she is tearful. Patient has been taking norco and zofran with moderate relief of symptoms. Was not nauseous and lightheaded until after she took norco this morning. documented in this encounter Plan of Treatment Not on filedocumented as of this encounter Procedures Procedure Name Priority Date/Time Associated Diagnosis Comme nts ECG 12 LEAD Routine 12/29/2020 12:58 Lightheadedness Results for this OUTPATIENT PM CDT procedure are i n the results section. documented in this encounter Results ECG 12 Lead Outpatient (12/29/2020 12:58 PM CDT) P athologist Signature Ventricular Rate 66 BPM [facility] Atrial Rate 66 BPM [facility] P-R Interval 154 ms [facility] QRS Duration 134 ms [facility] QT 430 ms [facility] QTc 450 ms [facility] P [place] 14 degrees [facility] R [place] 43 degrees [facility] T [place] 30 degrees [facility] Specimen (Source) Anatomical Collection Method Collection Time Re ceived Time Location / / Volume Laterality 12/29/2020 12:58 PM CDT Narrative [facility] - 12/29/2020 1:54 PM CDT Sinus rhythm Right bundle branch block Abnormal ECG When compared with ECG of 13-OCT-2020 08 :19, No significant change was found Confirmed by Jimi Cotto ([id number]) on 1:54:54 PM Procedure Note Jimi Cotto MD - 12/29/2020Format ting of this note might be different from the original. Sinus rhythm Right bundle branch block Abnormal ECG When compared with ECG of 13-OCT-2020 08 :19, No significant change was found Confirmed by Jimi Cotto ([id number]) on 1:54:54 PM Will Hernandez PA-C PN ECG ORDERABLES Performing Organization Address City/State/ZIP Code Phon e Number [facility] [address] [place] [address] documented in this encounter Visit Diagnoses Diagnosis Near syncope Syncope and collapse Lightheadedness Dizziness and giddiness Pelvic pain in female Unspecified symptom associated with fema le genital organs documented in this encounter Care Teams Strategic Intelligence Officer Relationship Specialty Start Date End Date John Stokes MD PCP - General Family Practice 07/08/20 07/14/21 [facility] [address] [place] [address] documented as of this encounter
--- OUTSIDE RECORDS SUMMARY | 2022-01-20 19:50 | XMS_ITS | Encounter Summary ---
:1995 Author Organization [employer] [facility] Address [address], [place] [address] Care Team Providers Name Role Phone John Stokes MD Primary Care Provider Reason for Visit Reason Comments VAGINAL BLEEDING Encounter Details Date Type Department Care Team Description 01/08/2021 [facility]riage [facility] Jim Marte VAGIN AL BLEEDING Obstetrics/Gynecolog y [address] [facility] [address] [place] [address] [place], [place] [phone] (Wo rk) Social History Tobacco Use Types Packs/Day Years Used Date Smoking Tobacco: Never Sex Assigned at Date Recorded Female 10/26/2020 7:23 AM CDT documented as of this encounter Nursing Notes Lizabeth Conner, RN - 01/08/2021 9:25 AM CDT Reason for Disposition ??? Normal menstrual flow Protocols used: VAGINAL BLEEDING - [id number] Pt is calling with several questions today. She was seen in ER on 12-28-20. Dx'd with ovarian cyst. Treatment plan in place. Reports she has since been dx'd with Covid 19. Menses started yesterday. Bleeding is heavier than her typical. Changing maxi pad 5x daily. Multiplerice size clots. +Cramps. Pt given bleeding precautions per protocol. Pt still experiencing pain of ovarian cyst, plus now menstrual cramps. Wants to know if she can takepercocet, left over from her ER visit. Reviewed with patient how to stagger doses of IB/tylenol. If that is not effective pain control, she may take percocet. She voices understanding and acceptance of this advice and will call back if any further questions or concerns. documented in this encounter Plan of Treatment Not on filedocumented as of this encounter Visit Diagnoses Not on filedocumented in this encounter Care Teams Bell Ringer Relationship Specialty Start Date End Date John Stokes MD PCP - General Family Practice 07/08/20 07/14/21 [facility] [address] [place] [address] documented as of this encounter
--- OUTSIDE RECORDS SUMMARY | 2022-01-20 19:50 | XMS_ITS | Encounter Summary ---
:1995 Author Organization [employer] Address [address] [place] [address] Care Team Providers Name Role Phone John Stokes MD Primary Care Provider Reason for Visit Reason Comments INCISION DRAINING Encounter Details Date Type Department Care Team Description 10/24/2020 Nurse Triage [facility] John Stokes, INCISION DRAINING [address] [place] [address] [facility] [phone] [address] [place], [place] [address] Social History Tobacco Use Types Packs/Day Years Used Date Smoking Tobacco: Never Sex Assigned at Date Recorded Female 10/26/2020 7:23 AM CDT documented as of this encounter Nursing Notes Lila Lovell, RN - 10/24/2020 12:37 PM CDT Spoke with pt who was calling as she had laparoscopic surgery on 10/13/20. She reports that she has been healing well and no pain until today. Now she is feeling that the incision in her belly button hasbeen intermittantly painful along with the incision on the right at a 1-2/10. She has noted some bruising the size of a quarter appearing as the skin looks yellowish. She has tape that is over all the incisions and she was told to leave on. One has some old blood. Tape, old blood and bruises- with yellow. Denies fever, redness, or drainage. Pt has appointment in 3 days but will call if worsening before then. .Problem list reviewed as related to this call. Reason for Disposition ? ? [1] INCREASING pain in incision AND [2] > 2 days (48 hours) since surgery Protocols used: POST-OP INCISION SYMPTOMS AND [id number] Future Appointments Date Time Provider Department Center 10/27/2020 3:30 PM Jim Marte MD [id number] [facility] 6500 documented in this encounter Plan of Treatment Not on filedocumented as of this encounter Visit Diagnoses Not on filedocumented in this encounter Care Teams Flat Lock Machine Operator Relationship Specialty Start Date End Date John Stokes MD PCP - General Family Practice 07/08/20 07/14/21 [facility] [address] [place] [address] documented as of this encounter
--- OUTSIDE RECORDS SUMMARY | 2022-01-20 19:50 | XMS_ITS | Encounter Summary ---
:1995 Author Organization [employer] Address [address] [place] [address] Care Team Providers Name Role Phone John Stokes MD Primary Care Provider Reason for Visit Reason Comments Medication Questions Encounter Details Date Type Department Care Team Description 10/15/2020 Nurse Triage [facility] John Stokes, Medication Questions [address] [place] [address] [facility] [phone] [address] [place] [address] Social History Tobacco Use Types Packs/Day Years Used Date Smoking Tobacco: Never Sex Assigned at Date Recorded Female 10/26/2020 7:23 AM CDT documented as of this encounter Nursing Notes Coty Muir RN - 10/15/2020 7:47 PM CDT Reason for Disposition ??? Caller has NON-URGENT medication question about med that PCP or specialist prescribed and triager unable to answer question Protocols used: MEDICATION QUESTION [id number] Patient calls. She had OBGY CALL [facility]ENTER RECRUITER Surgery on 10/13/20 . She calls with questions how to take Tylenol ,Motrin and Oxycodone to control pain. States, having pain rates 5 on a scale 1-10 when sitting. Movement rates the pain 8-9 on a scale 1-10. Spoke with Pharmacist at [facility]. Discussed to take Tylenol 650 mg q6 hours around the clock for 2days. Advised to take Motrin 600 mg around the clock for 2 days. Protect your stomach. Take a medication q3 hours don't take them together. Take Oxycodone if she needs for pain . Due to its highly addictive nature take only is not controlled by Motrin and Tylenol . Suggested to take during movement where her pain is the highest. She may take Oxycodone 1/2h before she moves around . Day 3-4 and 5 she may not need Motrin and Tylenol around the clock may want to reduce to bid /tid then she can wean down daily. Advised to take Senna bid as directed to keep ahead of the bm's to prevent constipation. Patient verbalized understanding. Problem list /medicaiton list reviewed as related to this call. documented in this encounter Plan of Treatment Not on filedocumented as of this encounter Visit Diagnoses Not on filedocumented in this encounter Care Teams Pneumatic Tester Mechanic Relationship Specialty Start Date End Date John Stokes MD PCP - General Family Practice 07/08/20 07/14/21 [facility] [address] [place] [address] documented as of this encounter
--- OUTSIDE RECORDS SUMMARY | 2022-01-20 19:50 | XMS_ITS | Encounter Summary ---
:1995 Author Organization [facility] Address [address], [place] [address] Care Team Providers Name Role Phone John Stokes MD Primary Care Provider Reason for Visit Reason Comments APPOINTMENT REQUEST Encounter Details Date Type Department Care Team Description 10/13/2020 [facility] Sayra Hayden MD APPOINTMENT REQUEST Obstetrics/Gynecolog y [address] [facility] 5[address] [place] [phone] (Wo rk) Social History Tobacco Use Types Packs/Day Years Used Date Smoking Tobacco: Never Sex Assigned at Date Recorded Female 10/26/2020 7:23 AM CDT documented as of this encounter Nursing Notes Sayra Hayden MD - 10/13/2020 8:31 PM CDT porcelain waxer: I met Malinda when she came into the ED today and I performed a laparoscopy on her. Please call herand help her get set up for a post-operative check with one of my partners in 2 weeks since I will be out of the office. Patient is aware of this plan of care. Thank you, Sayra Hayden MD 8:32 PM 10/13/2020 documented in this encounter Plan of Treatment Not on filedocumented as of this encounter Visit Diagnoses Not on filedocumented in this encounter Care Teams Tower Truck Driver Relationship Specialty Start Date End Date John Stokes MD PCP - General Family Practice 07/08/20 07/14/21 [facility] [address] [place] [address] documented as of this encounter
--- OUTSIDE RECORDS SUMMARY | 2022-01-20 19:50 | XMS_ITS | Encounter Summary ---
:1995 Author Organization [facility] Address [address] [place] [address] Care Team Providers Name Role Phone John Stokes MD Primary Care Provider Encounter Details Date Type Department Care Team Description 10/13/2020 Orders Only Initial Department Provider, [address] [place], [place] [address] Interface provider [phone] [place] [address] Social History Tobacco Use Types Packs/Day Years Used Date Smoking Tobacco: Never Sex Assigned at Date Recorded Female 10/26/2020 7:23 AM CDT documented as of this encounter Plan of Treatment Not on filedocumented as of this encounter Procedures Procedure Name Priority Date/Time Associated Diagnosis Comme nts EKG 10/13/2020 Results for thi s procedure are in the resu lts section. documented in this encounter Results EKG (10/13/2020) Narrative This result has an attachment that is no t available. Interface Provider EKG documented in this encounter Visit Diagnoses Not on filedocumented in this encounter Care Teams Manager Labor Relations Relationship Specialty Start Date End Date John Stokes MD PCP - General Family Practice 07/08/20 07/14/21 [facility] [address] [facility] [address] documented as of this encounter
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
--- OUTSIDE RECORDS SUMMARY | 2022-01-20 19:50 | XMS_ITS | Encounter Summary ---
:1995 Author Organization [employer] Address [address] [place] [address] Care Team Providers Name Role Phone John Stokes MD Primary Care Provider Reason for Visit Reason Comments DIZZINESS Encounter Details Date Type Department Care Team Description 03/10/2021 Nurse Triage [facility] John Stokes MD DIZZINESS [address] [facility] [address], [place] [address] [place] [address] [phone] (Wo rk) Social History Tobacco Use Types Packs/Day Years Used Date Smoking Tobacco: Never Sex Assigned at Date Recorded Female 10/26/2020 7:23 AM CDT documented as of this encounter Nursing Notes Chinyere Bond, RN - 03/10/2021 6:24 PM CST Patient states 4 days ago developed the worst headache she has ever had. Hx of migraines with medication not helping headache. Very dizzy, vision is blurry and having a hard time walking. Nauseated. Denies vomiting, fever or stiff neck. The last few days has squeezing chest pain episodes lasting 10 seconds. States has hx of heart problems, see problem list. Pain radiates to her abdomen. Yesterday hadchills for 5 minutes now gone. Headache is better now. Rates pain 2 on 1-10 pain intensity scale. Denies breathing difficulty, wheezing, retractions, or cyanosis. Problem list reviewed as related to this call. Reason for Disposition ??? SEVERE dizziness (e.g., unable to stand, requires support to walk, feels like passing out now) Protocols used: DIZZINESS - [id number] MILL OPERATOR documented in this encounter Plan of Treatment Not on filedocumented as of this encounter Visit Diagnoses Not on filedocumented in this encounter Care Teams Director Law Enforcement Relationship Specialty Start Date End Date John Stokes MD PCP - General Family Practice 07/08/20 07/14/21 [facility] [address] [place] [address] documented as of this encounter
--- OUTSIDE RECORDS SUMMARY | 2022-01-20 19:50 | XMS_ITS | Encounter Summary ---
:1995 Author Organization [facility] Address [address] [place] [address] Care Team Providers Name Role Phone John Stokes MD Primary Care Provider Encounter Details Date Type Department Care Team Description 03/10/2021 Orders Only [facility]ont, All jose enrique J, DO Center [address] [place] [address] [facility] [place] [address] [phone] Social History Tobacco Use Types Packs/Day Years Used Date Smoking Tobacco: Never Sex Assigned at Date Recorded Female 10/26/2020 7:23 AM CDT documented as of this encounter Plan of Treatment Not on filedocumented as of this encounter Visit Diagnoses Not on filedocumented in this encounter Additional Health Concerns Infection Onset Date Last Indicated Resolved Time R/O COVID19 03/31/2021 03/31/2021 03/31/2021 7:16 PM WATER TAXI DRIVER R/O COVID19 04/02/2021 04/02/2021 04/03/2021 3:18 AM WATER TAXI DRIVER documented as of this encounter Care Teams Apron Man Relationship Specialty Start Date End Date John Stokes MD PCP - General Family Practice 07/08/20 07/14/21 [facility] [address] [place] [address] documented as of this encounter
--- OUTSIDE RECORDS SUMMARY | 2022-01-20 19:50 | XMS_ITS | Encounter Summary ---
:1995 Author Organization [facility] Address [address], [place] [address] Care Team Providers Name Role Phone John Stokes MD Primary Care Provider Encounter Details Date Type Department Care Team Description 03/19/2021 Lab Visit [place] [facility]is Other fatigue; [address] Dizziness; [address] Orthostatic hypotension [place], [place] [address] Social History Tobacco Use Types Packs/Day Years Used Date Smoking Tobacco: Never Sex Assigned at Date Recorded Female 10/26/2020 7:23 AM CDT documented as of this encounter Plan of Treatment Not on filedocumented as of this encounter Procedures Procedure Name Priority Date/Time Associated Diagnosis Comme nts BRAIN NATRIURETIC Routine 03/19/2021 8:10 AM Other fatig ue Results for this PEPTIDE (BNP) EMR IMPLEMENTATION SPECIALIST Dizziness procedure are in Orthostatic the results hypotension section. CORTISOL Routine 03/19/2021 8:10 AM Other fatigue Results for this EMR IMPLEMENTATION SPECIALIST Dizziness procedure are in Orthostatic the results hypotension section. documented in this encounter Results B-Type Natriuretic Peptide (03/19/2021 8:10 AM EMR IMPLEMENTATION SPECIALIST) P athologist Signature B Type Natr. 12 <=99 pg/mL 03/19/2021 [facility] Peptide 10:06 AM EMR IMPLEMENTATION SPECIALIST LABORATORY Specimen Anatomical Collection Method / Collection Time Recei terra Time (Source) Location / Volume Laterality Blood Venipuncture / 03/19/2021 8:10 03/19/2021 8:10 Unknown AM EMR IMPLEMENTATION SPECIALIST AM EMR IMPLEMENTATION SPECIALIST Sara Kirk MD LAB_1 Performing Organization Address City/State/ZIP Code Phon e Number [facility] [address] [place] [address] Cortisol AM (03/19/2021 8:10 AM EMR IMPLEMENTATION SPECIALIST) P athologist Signature Cortisol 9.0 2.9 - 19.4 03/19/2021 [facility] mcg/dL 1:47 PM EMR IMPLEMENTATION SPECIALIST LABORATORY Specimen Anatomical Collection Method / Collection Time Recei terra Time (Source) Location / Volume Laterality Blood Venipuncture / 03/19/2021 8:10 03/19/2021 8:10 Unknown AM EMR IMPLEMENTATION SPECIALIST AM EMR IMPLEMENTATION SPECIALIST Narrative [facility] - 03/19/2021 1:47 P M EMR IMPLEMENTATION SPECIALIST Expected values AM (before 10am): 3.7-19.4 mcg/dL PM (after 5pm): 2.9-17.3 mcg/dL Sara Kirk MD LAB_1 Performing Organization Address [facility] [place] Phon e Number [facility] [address] [place] [address] documented in this encounter Visit Diagnoses Diagnosis Other fatigue Dizziness Dizziness and giddiness Orthostatic hypotension documented in this encounter Care Teams Automation Control Technician Relationship Specialty Start Date End Date John Stokes MD PCP - General Family Practice 07/08/20 07/14/21 [facility] [address] [place] [address] documented as of this encounter
--- OUTSIDE RECORDS SUMMARY | 2022-01-20 19:50 | XMS_ITS | Encounter Summary ---
:1995 Author Organization [employer] Address [address] [address] Care Team Providers Name Role Phone John Stokes MD Primary Care Provider Reason for Visit Reason Comments Post Op Exam Encounter Details Date Type Department Care Team Description 10/27/2020 Office Visit [facility] Jim Marte Cyst of left ovary (Primary Dx); Obstetrics/Gynecolog MD Isabel Malpositioned intrauterine device (IUD), subsequent encounter; y [address] Arcuate uterus; [address] [facility] 5th Floor History of tetralogy [place] [address] [phone] (Wo rk) Social History Tobacco Use Types Packs/Day Years Used Date Smoking Tobacco: Never Sex Assigned at Date Recorded Female 10/26/2020 7:23 AM CDT documented as of this encounter Last Filed Vital Signs Vital Sign Reading Time Taken Comments Blood Pressure 136/71 10/27/2020 3:42 PM CDT Pulse 80 10/27/2020 3:42 PM CDT Temperature - - Respiratory Rate - - Oxygen Saturation - - Inhaled Oxygen Concentration - - Weight 94.9 kg (209 lb 3.2 oz) 10/27/2020 3:42 PM CDT Height 170.2 cm (5' 7) 10/27/2020 3:42 PM CDT Body Mass Index 32.77 10/27/2020 3:42 PM CDT documented in this encounter Progress Notes Jim Marte MD - 10/27/2020 3:30 PM CDT Subjective: Malinda Medina is a 24 y.o. female who presents for postop check and several other questions, including contraception. She had a laparoscopic ovarian cystectomy and evacuation of hemoperitoneum about2 weeks ago with Dr. Hayden. She has recovered normally, has no questions about the procedure, does note ???some stinging??? in her incisions. She is curious whether she may have PCOS, because she has a history of irregular bleeding, sometimesevery 4 or 5 weeks, sometimes misses a month, sometimes every 3 weeks. Bleeding used to be 4-6 days,and prior to coming to the emergency room, had a period that lasted 9 days. She is also interested in contraception due to this IUD expulsion. She states that she is unable to remember to take pills, wonders if she can have another Mirena, a patch, or Nexplanon. Review of Systems: See HPI Objective: BP 136/71 (BP Location: Right Arm, BP Cuff Size: Regular - Long) Pulse 80 Ht 5' 7 (1.702 m) Wt 209 lb 3.2 oz (94.9 kg) BMI 32.77 kg/m?? General: looks well, non-toxic Incisions all healing normally. Both right and left lower quadrant incisions are extruding this stitch, so these are excised. Skin edges are reapproximated with Steri-Strips. Assessment: Encounter Diagnoses Name Primary? Cyst of left ovary Yes ??? Malpositioned intrauterine device (IUD), subsequent encounter ??? Arcuate uterus ??? History of tetralogy of Fallot repair Plan: No orders of the defined types were placed in this encounter. ?? Normal postop check. Okay to resume all forms of normal activity. ?? Discussed her arcuate uterus is a relative contraindication to IUD placement and that this may have been why her IUD was caudally displaced. Reviewed other forms of contraception in the time that wehad available to us, including Nexplanon with its side effects of irregular bleeding and sometimes weight gain. She thinks this would probably be her best fit and would like to return to have 1 inserted. Please note that the above document may have been generated with voice recognition software and typographic errors may occur. Jim Marte MD 5:22 PM 10/27/2020 documented in this encounter Plan of Treatment Not on filedocumented as of this encounter Visit Diagnoses Diagnosis Cyst of left ovary - Primary Other and unspecified ovarian cyst Malpositioned intrauterine device (IUD), subsequent encounter ([facility]) Arcuate uterus History of tetralogy of Fallot repair Personal history of surgery to heart and great vessels, presenting hazards to health documented in this encounter Care Teams Agriculture Laborer Relationship Specialty Start Date End Date John Stokes MD PCP - General Family Practice 07/08/20 07/14/21 [facility] [address] [place] [address] documented as of this encounter
--- OUTSIDE RECORDS SUMMARY | 2022-01-20 19:50 | XMS_ITS | Encounter Summary ---
:1995 Author Organization [employer] Address [address] [place] [address] Care Team Providers Name Role Phone John Stokes MD Primary Care Provider Reason for Visit Reason Comments SOB (SHORTNESS OF BREATH) Encounter Details Date Type Department Care Team Description 10/16/2020 Nurse Triage [facility] John Stokes, [place] ([place] [address] [facility] BREATH) [place] [address] [facility] [phone] [address] [place], [place] [phone] Social History Tobacco Use Types Packs/Day Years Used Date Smoking Tobacco: Never Sex Assigned at Date Recorded Female 10/26/2020 7:23 AM CDT documented as of this encounter Nursing Notes Julita Corey RN - 10/16/2020 11:59 PM CDT Spoke with pt who is calling stating that she is experiencing some shortness of breath and pressure in her chest while laying down, pt states this feeling is also present when sitting up. Pt last took oxycodone 5 mg tablet at 6:00 PM. Pt had laparoscopic surgery on 10/13/20, pt states her abdomen is also firm to the touch. Denies fever. Problem list reviewed as related to this call. Reason for Disposition ??? Major surgery in the past month Protocols used: BREATHING [id number] documented in this encounter Plan of Treatment Not on filedocumented as of this encounter Visit Diagnoses Not on filedocumented in this encounter Care Teams Er Nurse Relationship Specialty Start Date End Date John Stokes MD PCP - General Family Practice 07/08/20 07/14/21 [facility] [address] [place] [address] documented as of this encounter
--- OUTSIDE RECORDS SUMMARY | 2022-01-20 19:50 | XMS_ITS | Encounter Summary ---
:1995 Author Organization [facility] Address [address], [place] [address] Care Team Providers Name Role Phone John Stokes MD Primary Care Provider Reason for Visit Reason Comments Post Hospital Discharge Follow Up Encounter Details Date Type Department Care Team Description 10/15/2020 [facility] Sayra Hayden MD Post Hospital Obstetrics/Gynecolog y [address] Discharge Follow Up [address] [facility] 5th [place] [address] [phone] (Wo rk) Social History Tobacco Use Types Packs/Day Years Used Date Smoking Tobacco: Never Sex Assigned at Date Recorded Female 10/26/2020 7:23 AM CDT documented as of this encounter Nursing Notes Avis Glover RN - 10/16/2020 12:55 PM CDT See notes below. Reason for Disposition ??? [1] Patient is improved AND [2] caller has simple question that triager can answer Protocols used: POST-HOSPITALIZATION FOLLOW-UP [id number] Avis Glover RN - 10/16/2020 12:46 PM CDT Post-Op call Treating Clinician: Dr. Hayden Procedure & Date: 10-13-20 Laparoscopy with evacuation of hemoperitoeum, left ovarian cystectomy, removal of intrauterine device Pain Level: better each day Pain under control? Yes; she's taking Ibuprofen as advised. Medication refill? None needed at this time. Incision Sx.,(red,drg, etc): ?? Temp: no fever or chills since surgery Bleeding: had some red vaginal bleeding today but not as much as a typical menses day. No clots. Elimination: has had several bowel movements today Activity: mostly resting at home since surgery. Call back if: Advised the patient to call back to the Nurseline, [phone], if her symptoms worsen or she develops new symptoms. Post op appt date: Confirmed with her that this date/time still works for her. Future Appointments Date Time Provider Department Center 10/27/2020 3:30 PM Jim Marte MD [id number] [facility] [address] - 10/15/2020 7:30 AM CDT Post-Op call Treating Clinician: Dr. Hayden Procedure & Date: 10-13-20 Laparoscopy with evacuation of hemoperitoeum, left ovarian cystectomy, removal of intrauterine device Pain Level: Pain under control? Medication refill? Incision Sx.,(red,drg, etc): Temp: Bleeding: Elimination: Activity: Call back if: Post op appt date: No future appointments. documented in this encounter Plan of Treatment Not on filedocumented as of this encounter Visit Diagnoses Not on filedocumented in this encounter Care Teams Pediatric Sports Medicine Specialist Relationship Specialty Start Date End Date John Stokes MD PCP - General Family Practice 07/08/20 07/14/21 [facility] [address] [place] [address] documented as of this encounter
--- OUTSIDE RECORDS SUMMARY | 2022-01-20 19:50 | XMS_ITS | Encounter Summary ---
:1995 Author Organization [employer] Address [address] [place] [address] Care Team Providers Name Role Phone John Stokes MD Primary Care Provider Reason for Visit Reason Comments VAGINAL BLEEDING Encounter Details Date Type Department Care Team Description 02/02/2021 Nurse Triage [facility] John Stokes MD VAGINAL BLEEDING [address], [place] [address] [place] [address] [phone] (Wo rk) Social History Tobacco Use Types Packs/Day Years Used Date Smoking Tobacco: Never Sex Assigned at Date Recorded Female 10/26/2020 7:23 AM CDT documented as of this encounter Nursing Notes Mylene De Santiago RN - 02/02/2021 6:55 PM CDT Pt called and said she has her period. First period since being diagnosed with ovarian cyst. While at work today pt passed 6-7 clots, size of golf ball and went through two pads and one tampon in 6 hours. Pt is home now, when urinating 2 clots fell in the toilet. Lower abdominal pain, intermittent. Headache, dizzy, lightheaded, nauseous earlier today. All symptoms started today. No constant pain. Reason for Disposition ??? SEVERE vaginal bleeding (e.g., soaking 2 pads or tampons per hour and present 2 or more hours; 1menstrual cup every 2 hours) Protocols used: VAGINAL BLEEDING - [id number] Problem list reviewed as related to this call. documented in this encounter Plan of Treatment Not on filedocumented as of this encounter Visit Diagnoses Not on filedocumented in this encounter Care Teams Product Technology Scientist Relationship Specialty Start Date End Date John Stokes MD PCP - General Family Practice 07/08/20 07/14/21 [facility] [address] [place] [address] documented as of this encounter
--- OUTSIDE RECORDS SUMMARY | 2022-01-20 19:50 | XMS_ITS | Encounter Summary ---
:1995 Author Organization [facility] Address [address] [place] [address] Care Team Providers Name Role Phone John Stokes MD Primary Care Provider Encounter Details Date Type Department Care Team Description 03/31/2021 Notes/Orders [facility] Waqar Mcmahon Conta ct with and Laboratory MD (suspected) exposure [address] [facility] [address] [facility] to [facility]19 [facility] [address] [id number] [place], [place] [phone] (Wo rk) Social History Tobacco Use Types Packs/Day Years Used Date Smoking Tobacco: Never Sex Assigned at Date Recorded Female 10/26/2020 7:23 AM CDT documented as of this encounter Plan of Treatment Not on filedocumented as of this encounter Visit Diagnoses Diagnosis Contact with and (suspected) exposure to covid-19 documented in this encounter Care Teams Veneer Puller Relationship Specialty Start Date End Date John Stokes MD PCP - General Family Practice 07/08/20 07/14/21 [facility] [address] [place] [address] documented as of this encounter
--- OUTSIDE RECORDS SUMMARY | 2022-01-20 19:50 | XMS_ITS | Encounter Summary ---
:1995 Author Organization [facility] Address [address] [address] Care Team Providers Name Role Phone John Stokes MD Primary Care Provider Reason for Visit Reason Comments APPOINTMENT REQUEST Ed Discharge Follow-up Encounter Details Date Type Department Care Team Description 12/30/2020 [facility] Jim Marte APPOI NTMENT REQUEST; Obstetrics/Gynecolog y Ed Discharge Follow-up [address] [facility] [address] [place] [address] [place], [place] [phone] (Wo rk) Social History Tobacco Use Types Packs/Day Years Used Date Smoking Tobacco: Never Sex Assigned at Date Recorded Female 10/26/2020 7:23 AM CDT documented as of this encounter Nursing Notes Kiley Givens RN - 12/30/2020 1:20 PM CDT Patient is a 25 yo female, G0, with history of hemorrhagic cyst on ovary this past October that required surgery. She is calling with request for systems engineer consultation for ED/UC follow up. She was seen in ED on 12/28 for abdominal pain. US done notes simple appearing right ovarian cyst. Pt was prescribed narco for pain control. She then presented to UC the following day for nausea, continued stomach pain and lightheadedness which was contributed to taking [place]. She was removed from [place] and started on Percocet. Since yesterday she is taking Ibuprofen, E.S. Tylenol and Percocet as needed with the addition of Zofran. She says with meds her cyst is still uncomfortable. Patient also c/o constipation with use of narcotics. RN reviewed pain medications and told her to track when and how much of each medication she is taking as to not exceed maximum dosage of Tylenol in 24 hours. She was given recommendations for constipation. She is going to keep appt with primary care tomorrow and was scheduled for emergency consult follow up with Dr. Marte next Monday. Patient verbalized understanding and agreement to plan. All questions answered. documented in this encounter Plan of Treatment Not on filedocumented as of this encounter Visit Diagnoses Not on filedocumented in this encounter Care Teams Manager Sharepoint Relationship Specialty Start Date End Date John Stokes MD PCP - General Family Practice 07/08/20 07/14/21 [facility] [address] [place] [address] documented as of this encounter
--- OUTSIDE RECORDS SUMMARY | 2022-01-20 19:50 | XMS_ITS | Encounter Summary ---
:1995 Author Organization [facility] Address [address], [place] [address] Care Team Providers Name Role Phone John Stokes MD Primary Care Provider Reason for Visit Reason Comments Medication Request Encounter Details Date Type Department Care Team Description 11/03/2020 [facility] Jim Marte, Medic ation Request Obstetrics/Gynecolog y [address] [facility] [address] [place] [address] [place], [place] [phone] (Wo rk) Social History Tobacco Use Types Packs/Day Years Used Date Smoking Tobacco: Never Sex Assigned at Date Recorded Female 10/26/2020 7:23 AM CDT documented as of this encounter Nursing Notes June Tsang RN - 11/04/2020 12:24 PM CDT Reviewed provider message with patient. Verbalizes understanding and agrees with POC. Oxana Amaral RN - 11/04/2020 12:12 PM CDT Called and reached voice mail. Left generic message for patient to call back to nurse line. Jim Marte MD - 11/04/2020 11:59 AM CDT Lorazepam 0.5mg 1 hour prior to procedure. Needs charter bus driver. Kiley Givens RN - 11/04/2020 11:57 AM CDT Routing to Dr. Coreas in Dr. Marte's absence. Kiley Givens RN - 11/04/2020 11:53 AM CDT Patient returned call to clinic and spoke with RN, who relayed provider message below. She verbalized understanding and agreed with plan. She admits that she is very nervous/anxious for insertion and is wondering if there is anything that can be prescribed for her nerves to calm her down. RN routing to Dr. Marte for advisement. Medication and allergies reviewed with patient. Pharmacy confirmed. Please call patient with provider response. Elza Oliva LPN - 11/04/2020 11:25 AM CDT Left msg on unidentified voicemail for pt to call back for msg from provider. Jim Marte MD - 11/03/2020 3:57 PM CDT If she in fact wants an IUD and is reluctant to try Nexplanon, I think that is fine, as long as she understands she is at higher risk of another expulsion. I actually do not think oxycodone will help for insertion discomfort, and she will be better served with some local anesthetic that we can inject in the cervix to make the insertion less painful. That has been my experience. Celine Carlson - 11/03/2020 2:41 PM CDT Patient calling to request medication to take prior to IUD insertion. Scheduled for insertion on 11/06. Had IUD placed 5 years ago and states Ibuprofen and Tylenol combination did not help with the painduring insertion. Patient states almost passed out due to discomfort. Wondering if provider would bewilling to prescribe something stronger to take prior to procedure to help with pain. States used Oxycodone after recent procedure which helped manage pain. RN reviewed Oxycodone was not a medication typically prescribed prior to IUD insertion procedure. Patient requests message to provider. Routed to provider to advise. documented in this encounter Plan of Treatment Not on filedocumented as of this encounter Visit Diagnoses Not on filedocumented in this encounter Care Teams Grocery Checker Relationship Specialty Start Date End Date John Stokes MD PCP - General Family Practice 07/08/20 07/14/21 [facility] [address] [place] [address] documented as of this encounter
--- OUTSIDE RECORDS SUMMARY | 2022-01-20 19:50 | XMS_ITS | Encounter Summary ---
:1995 Author Organization [facility] Address [address] [address] Care Team Providers Name Role Phone John Stokes MD Primary Care Provider Reason for Referral Procedure/Equipment (Routine) - Incomplete Specialty Diagnoses / Procedures Referred By Contact Refer red To Contact Diagnoses Other fatigue Dizziness Orthostatic hypotension Dileep Kirk MD Procedures XR Chest [address] [place], [place] [address] Referral ID Status Reason Start Date Expiration Date Visits V isits Requested Authorized [id number] Incomplete 03/18/2021 06/17/2022 1 1 NET ARCHITECT Reason for Visit Reason Comments FATIGUE CIRCULATION PROBLEMS Encounter Details Date Type Department Care Team Description 03/18/2021 Office Visit [place] [facility] Dileep Kirk, Vic her fatigue (Primary Dx); Medicine Dizziness; [address] Sensation of feeling cold; [address] Congenital anomaly of heart; [place], [place] Histo ry of tetralogy of Fallot repair; [phone] Obesity, Class I, BMI 30-34.9; [phone] Orthostatic hyp otension (Work) Social History Tobacco Use Types Packs/Day Years Used Date Smoking Tobacco: Never Sex Assigned at Date Recorded Female 10/26/2020 7:23 AM CDT documented as of this encounter Last Filed Vital Signs Vital Sign Reading Time Taken Comments Blood Pressure 103/70 03/18/2021 8:59 AM FILENET ARCHITECT Pulse 72 03/18/2021 8:59 AM FILENET ARCHITECT Temperature - - Respiratory Rate - - Oxygen Saturation - - Inhaled Oxygen Concentration - - Weight 99.8 kg (220 lb) 03/18/2021 8:59 AM FILENET ARCHITECT Height - - Body Mass Index 34.46 12/28/2020 9:13 AM CDT documented in this encounter Progress Notes Dileep Kirk MD - 03/18/2021 9:00 AM FILENET ARCHITECT Addended by: DILEEP KIRK on: 03/18/2021 01:00 PM Modules accepted: Orders NET ARCHITECT Dileep Kirk MD - 03/18/2021 9:00 AM CST SUBJECTIVE: Malinda [age] y.o. 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 Terry Swift at [facility] in [place], [place]). She was routine follow-up by Cardiology until 2019. Patient started having some of the chest pain, presyncopal symptoms, please her to [facility] to establish her care in September of 2020. Patient had workup including MRI, pulmonary stress test, and 30 days of heart monitor. Patient came here today because has feeling extremely tired fatigued for last 2 weeks. She she slept8 hours a night and need another 2 hours nap during the day. Which is not like her. She always feeling constant feeling dizziness. The dizziness only appear when she gets up She also feeling cold intolerance.. She said yesterday after exercising from the gym, she walked ouside, and gets really cold, she had to go home and the per the blankets and not able to warm up this is not like her. She thought could be her thyroid. Last night because of the dizziness she went to emergency room: She had a normal CBC thyroid and electrolytes, and kidney panel. She lost about 60 lb in 2020, by eating better low carb high-protein and daily exercise, She is gaining back about 20 lb this year, she has not changing her activity at all. She has been going to gym every day recent weight training, and cardia exercising. Her last period was heavy last 9 days.. She had a. Couple days ago only last for 2-3 days and reallylihgt she was off her OCP for 5 days because she did get her prescription on time. She said she had a COVID in July 2020.. Symptoms is lost severe different from what she is feeling right now. Patient Active Problem List Diagnosis ??? Cyst [...] ??? Migraine syndrome ??? Tetralogy of Fallot past surgical history on file. Tetralogy of Fallot. ?? Status post tetralogy [...] and as visualized on TTE From 09/10/2020). Outpatient Medications Prior to Visit Medication Sig Dispense Refill ??? acetaminophen (TYLENOL) 325 MG tablet Take 1-2 Tablets by mouth every 6 hours as needed for Pain. 100 Tablet 11 ??? ibuprofen (MOTRIN) 600 MG tablet Take 1 Tablet by mouth every 6 hours as needed for Pain. 40 Tablet 0 ??? meclizine (ANTIVERT) 25 MG tablet Take 1 Tablet by mouth every 6 hours as needed for Dizziness/Vertigo. 30 Tablet 0 ??? meclizine (ANTIVERT) 25 MG tablet Take 1 Tablet by mouth every 6 hours as needed for Dizziness/Vertigo. 30 Tablet 0 ??? Norethindrone (LYLEQ OR) ??? ondansetron (ZOFRAN-ODT) 4 MG disintegrating tablet Take 1 Tablet by mouth every 8 hours as needed for Nausea. 10 Tablet 0 ??? oxyCODONE-acetaminophen (PERCOCET) 5-325 MG tablet Take 2 Tablets by mouth every 6 hours as needed for Pain. 10 Tablet 0 ??? levonorgestrel (KYLEENA) 19.5 MG IUD 1 Each by Intrauterine route continuous. (Patient not taking: Reported on 12/29/2020) 1 Each 0 ??? LORazepam (ATIVAN) 0.5 MG tablet Take 1 Tablet by mouth See Admin Instructions. 1 hr prior to procedure, repeat in 30 if needed (Patient not taking: Reported on 12/29/2020) 2 Tablet 0 No facility-administered medications prior to visit. Social History Socioeconomic History ??? Marital status: Single Spouse name: Not on file ??? Number of children: Not on file ??? Years of education: Not on file ??? Highest education level: Not on file Occupational History ??? Not on file Tobacco Use ??? Smoking status: Never Smoker ??? Smokeless tobacco: Not on file Vaping Use ??? Vaping Use: Never used Substance and Sexual Activity ??? Alcohol use: Not on file ??? Drug use: Not on file ??? Sexual activity: Not on file Other Topics Concern ??? Not on file Social History Narrative ??? Not on file Social Determinants of Health Financial Resource Strain: ??? Difficulty of Paying Living Expenses: Not on file Food Insecurity: ??? Worried About Running Out of Food in the Last Year: Not on file ??? Ran Out of Food in the Last Year: Not on file Transportation Needs: ??? Lack of Transportation (Medical): Not on file ??? Lack of Transportation (Non-Medical): Not on file Physical Activity: ??? Days of Exercise per Week: Not on file ??? Minutes of Exercise per Session: Not on file Intimate Partner Violence: ??? Fear of Current or Ex-Partner: Not on file ??? Emotionally Abused: Not on file ??? Physically Abused: Not on file ??? Sexually Abused: Not on file Housing Stability: ??? Unable to Pay for Housing in the Last Year: Not on file ??? Number of Places Lived in the Last Year: Not on file ??? Unstable Housing in the Last Year: Not on file Allergies Allergen Reactions ??? Estrogens Headache ??? [place] [Hydrocodone-Acetaminophen] Other, see comments Nausea lightheaded No family history on file. ROS All of the systems reviewed, unremarkable, except that mentioned in HPI BP 103/70 (BP Location: Right Arm, BP Cuff Size: Regular) Pulse 72 Wt 99.8 kg (220 lb) BMI 34.46 kg/m?? Lying down 117/74 HR 68 Sitting 118/78 HR 69 Standing 101/ 71 HR 82 Objective: General Appearance: Alert, cooperative, no distress, appears stated age Head: Normocephalic, without obvious abnormality, atraumatic Eyes: PERRL, conjunctiva/corneas clear, EOM's intact, fundi benign, both eyes Ears: Nose: Throat: Neck: Supple, symmetrical, trachea midline, no adenopathy; thyroid: no enlargement/tenderness/nodules; no carotid bruit or JVD Back: Symmetric, no curvature, ROM normal, no CVA tenderness Lungs: Clear to auscultation bilaterally, respirations unlabored Chest Wall: No tenderness or deformity Heart: Regular rate and rhythm, S1 and S2 normal, no murmur, rub or gallop Abdomen: Soft, non-tender, bowel sounds active all four quadrants, no masses, no organomegaly Extremities: Extremities normal, atraumatic, no cyanosis or edema Pulses: 2+ and symmetric all extremities Skin: Skin color, texture, turgor normal, no rashes or lesions Lymph nodes: Cervical, supraclavicular, and axillary nodes normal Neurologic: Labs: Lab Results Component Value Date WBC 6.7 12/28/2020 Hemoglobin 12.1 12/28/2020 HCT 36.7 12/28/2020 MCV 90.0 12/28/2020 Platelets 220 12/28/2020 Lab Results Component Value Date ALT (SGPT) 13 10/13/2020 AST (SGOT) 17 10/13/2020 Alkaline Phosphatase 50 10/13/2020 Bilirubin, Direct 0.2 10/13/2020 Bilirubin, Total 0.4 10/13/2020 No results found for: CHOL, HDL, TRI, TRIGPOC, LDL, LDLPOC No results found for: TSH, FT3, T4, FREET4, FREET4, THYROAB Lab Results Component Value Date Creatinine 0.77 12/28/2020 Glucose 72 12/28/2020 CO2 25 12/28/2020 Chloride 105 12/28/2020 Potassium 3.9 12/28/2020 Sodium 138 12/28/2020 BUN 16 12/28/2020 Calcium 8.9 12/28/2020 GFR, Estimated >60 12/28/2020 No results found for: HGBA1C, A1CDC, AA1C, A1CBA, A1CQ, A1CQL, [id number] Imaging (Past 12 months): No results found. Assessment: ICD-10-CM 1. Other fatigue R53.83 Test Screen Urine 2. Dizziness R42 3. Sensation of feeling cold R68.89 Plan: Malinda was seen today for fatigue and dizziness and feeling cold for last 2 weeks. - patient has a fairly essential abnormal blood tests from yesterday at emergency room. With normal CBC, BMP, thyroid From today's exam definitely she appeared to be orthostatic. She said she has been drinking lots of water. From chart review from [facility]. Looks like it she does have some presyncopal symptoms in the past., not sure if the orthostatic hypotension can all contributing to her current symptoms Will get a test done Patient was advised rehydrate herself She was advised to contact her Cardiology at [facility] to see current symptoms if could be all hercardiovascular related. Diagnoses and all orders for this visit: Other fatigue - Test Screen Urine; Future Dizziness -she is orthostatic Sensation of feeling cold Total time for the visit was 59 minutes including, but not limited to, xym-bvgx-sa-face time spent reviewing records, counseling, and coordination of care. Reyes Kirk MD 11:59 AM 03/18/2021 There are no Patient Instructions on file for this visit. NET ARCHITECT documented in this encounter Plan of Treatment Not on filedocumented as of this encounter Results XR Chest 2 Views (03/19/2021 8:35 AM FILENET ARCHITECT) Anatomical Region Laterality Modality Chest, Lung Computed Radiography Specimen (Source) Anatomical Collection Method Collection Time Re ceived Time Location / / Volume Laterality 03/19/2021 8:27 AM FILENET ARCHITECT Impressions 03/19/2021 11:34 AM FILENET ARCHITECT COMPARISON: ??Chest x-ray 10/13/2020, chest CT 10/13/2020 FINDINGS: ??Two views were obtained. Med anderson sternotomy wires. Stable heart size. Lungs appear clear. No pneumothorax or pleural effusion. T12 butterfly vertebra body. Procedure Note Fredy Almonte MD - 03/19/2021Formatti ng of this note might be different from the original. IMPRESSION COMPARISON: Chest x-ray 10/13/2020, ches t CT 10/13/2020 FINDINGS: Two views were obtained. Media n sternotomy wires. Stable heart size. Lungs appear clear. No pneumothorax or pleural effusion. T12 butterfly vertebra body. Dileep Kirk MD RAD GD B-Type Natriuretic Peptide (03/19/2021 8:10 AM FILENET ARCHITECT) athologist Signature B Type Natr. 12 <=99 pg/mL 03/19/2021 [facility] Peptide 10:06 AM FILENET ARCHITECT LABORATORY Specimen Anatomical Collection Method / Collection Time Recei terra Time (Source) Location / Volume Laterality Blood Venipuncture / 03/19/2021 8:10 03/19/2021 8:10 Unknown AM FILENET ARCHITECT AM FILENET ARCHITECT Dileep Kirk MD LAB_1 Performing Organization Address City/State/ZIP Code Phon e Number [facility] [address] [place] [address] Cortisol AM (03/19/2021 8:10 AM FILENET ARCHITECT) P athologist Signature Cortisol 9.0 2.9 - 19.4 03/19/2021 [facility] mcg/dL 1:47 PM FILENET ARCHITECT LABORATORY Specimen Anatomical Collection Method / Collection Time Recei terra Time (Source) Location / Volume Laterality Blood Venipuncture / 03/19/2021 8:10 03/19/2021 8:10 Unknown AM FILENET ARCHITECT AM FILENET ARCHITECT Narrative [facility] - 03/19/2021 1:47 P M FILENET ARCHITECT Expected values AM (before 10am): 3.7-19.4 mcg/dL PM (after 5pm): 2.9-17.3 mcg/dL Dileep Kirk MD LAB_1 Performing Organization Address City/State/ZIP Code Phon e Number [facility] [address] [place] [address] Test Screen Urine (03/18/2021 9:53 AM FILENET ARCHITECT) P athologist Signature HCG, Urine Negative Negative 03/18/2021 [facility] 10:00 AM FILENET ARCHITECT LABORATORY Specimen Anatomical Collection Method Collection Time Receive d Time (Source) Location / / Volume Laterality Urine Non-blood 03/18/2021 9:53 AM 9:53 Collection / FILENET ARCHITECT AM FILENET ARCHITECT Unknown Dileep Kirk MD LAB_1 Performing Organization Address City/[facility] Phon e Number [facility] [address] [place] [address] documented in this encounter Visit Diagnoses Diagnosis Other fatigue - Primary Dizziness Dizziness and giddiness Sensation of feeling cold Other general symptoms Congenital anomaly of heart Unspecified congenital anomaly of heart History of tetralogy of Fallot repair Personal history of surgery to heart and great vessels, presenting hazards to health Obesity, Class I, BMI 30-34.9 ([facility]C) Obesity, unspecified Orthostatic hypotension Other fatigue Dizziness Dizziness and giddiness Orthostatic hypotension documented in this encounter Care Teams Department Chair Relationship Specialty Start Date End Date John Stokes MD PCP - General Family Practice 07/08/20 07/14/21 [facility] [address] [place] [address] documented as of this encounter
--- OUTSIDE RECORDS SUMMARY | 2022-01-20 19:50 | XMS_ITS | Encounter Summary ---
:1995 Author Organization [facility] Address [address] [place] [address] Care Team Providers Name Role Phone John Stokes MD Primary Care Provider Encounter Details Date Type Department Care Team Description 03/31/2021 Office Visit [facility]- Co ntact with and Up Testing (suspected) exposure to [address] [place] [id number] Social History Tobacco Use Types Packs/Day Years Used Date Smoking Tobacco: Never Sex Assigned at Date Recorded Female 10/26/2020 7:23 AM CDT documented as of this encounter Plan of Treatment Not on filedocumented as of this encounter Visit Diagnoses Diagnosis Contact with and (suspected) exposure to covid-19 documented in this encounter Additional Health Concerns Infection Onset Date Last Indicated Resolved Time R/O COVID19 03/31/2021 03/31/2021 03/31/2021 7:16 PM PEDIATRIC CLINICAL DIETICIAN documented as of this encounter Care Teams Roller Coaster Operator Relationship Specialty Start Date End Date John Stokes MD PCP - General Family Practice 07/08/20 07/14/21 [facility] [address] [place] [address] documented as of this encounter
--- OUTSIDE RECORDS SUMMARY | 2022-01-20 19:50 | XMS_ITS | Encounter Summary ---
:1995 Author Organization [facility] Address [address], [place] [address] Care Team Providers Name Role Phone John Stokes MD Primary Care Provider Reason for Visit Reason Comments IUD INSERTION Encounter Details Date Type Department Care Team Description 11/06/2020 [facility] for insertion of intrauterine contraceptive device (Primary Dx); Obstetrics/Gynecolog MD Isabel Counseling for control regarding i ntrauterine device (IUD); y [address] examination or test, unconfirmed [address] [facility] [address] [place] [phone] (Wo rk) Social History Tobacco Use Types Packs/Day Years Used Date Smoking Tobacco: Never Sex Assigned at Date Recorded Female 10/26/2020 7:23 AM CDT documented as of this encounter Last Filed Vital Signs Vital Sign Reading Time Taken Comments Blood Pressure 131/68 11/06/2020 3:50 PM CDT Pulse 65 11/06/2020 3:50 PM CDT Temperature - - Respiratory Rate - - Oxygen Saturation - - Inhaled Oxygen Concentration - - Weight 94.8 kg (209 lb) 11/06/2020 3:50 PM CDT Height - - Body Mass Index 32.73 10/27/2020 3:42 PM CDT documented in this encounter Patient Instructions Patient InstructionsJim Marte MD - 11/06/2020 3:30 PM CDT Patient information: IUD insertion Pain It is very common to have mild or moderate cramping for up to several hours afterward. This is usually manageable with ibuprofen and/or tylenol. Mild cramping can continue for a few days but should be less and less as the days go by. If you are still having significant cramping more than 3-5 days after insertion, you should call your provider for further instructions. Bleeding Bleeding immediately after an IUD insertion is almost universal. It is usually quite light and may stop later today. Bleeding usually resumes later today or tomorrow, and can persist for up to ten dayswith a Paragard IUD. Mirena users on the other hand will often have light bleeding which can last four weeks or longer, as a result of the hormone in Mirena which is causing the endometrial tissue to thin and go away. String checks You should be able to feel the strings of your IUD by inserting a finger in the vagina. This is something you should learn to do in the next few weeks before returning to see your provider for an IUD check, if one is scheduled. Potential problems Major complications such as an IUD infection or perforation are fortunately rare - about 1-2 in 1000for either of these problems. We would want you to call with heavy bleeding, severe persistent cramping, or fevers. If these problems happen outside of office hours and you go to the emergency room or walk in clinic, we would encourage your provider to call the line mover chinese medicine practitioner before removing theIUD. The failure rate of an IUD is less than 1%. can occur however, and is associated with higher risks of ectopic and miscarriage, so if you think you are , please take a test or call your provider's office immediately. documented in this encounter Progress Notes Jim Marte MD - 11/06/2020 3:30 PM CDT Subjective: Malinda Medina is a 24 y.o. female who presents for possible IUD insertion. Recall that she had her Mirena removed a few weeks back in the context of caudal displacement identified during imaging related to a hemorrhagic ovarian cyst. She felt a Mirena had some hormonal side effects, and would like a smaller IUD with less hormones. 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 She does relate a history of difficulty with IUD insertions and fairly significant discomfort. She was given a 0.5 mg of lorazepam about an hour ago. She is accompanied by her boyfriend. We reviewed Kyleena which has a lower level of hormone compared to Mirena, has an FDA approval for use in nulliparous women, is good for 5 years as well, but has a much shorter safety record, and does not appear in studies to be better tolerated or associated with lower risk of complication in nulliparous women. Last, we discussed Destinee which similarly has a smaller frame and the lowest level of hormone compared to Mirena and Kyleena, but is only good for 3 years and also does not have evidence supporting its superiority in nulliparous women, despite the FDA labeling. The discontinuation rate with either IUD is approximately 15%, and perforation, infection, or expulsion rates are all similar. She understands and accepts that she is at higher risk of expulsion. Aftertaking the above under consideration, Malinda would like to proceed with insertion of Kyleena today. Review of Systems: See HPI Objective: BP 131/68 (BP Location: Right Arm, BP Cuff Size: Regular - Long) Pulse 65 Wt 209 lb (94.8 kg) BMI 32.73 kg/m?? General: looks well, non-toxic IUD Insertion Procedure Note, with paracervical block We discussed the risks of the levonorgestrel intrauterine system, including a withdrawal bleed following insertion which can last a month or longer, irregular bleeding patterns thereafter, and signs ofdisplacement including pelvic pain, cramping or being unable to palpate strings. The efficacy is described as 99% per year, and failures with an IUD in place have higher rates of ectopic and miscarriage. She understands there is a 2-5% expulsion rate, a 15% patient discontinuation rate, and a 0.2% chance of an IUD infection or uterine perforation potentially requiring surgical removal. Procedure Details Urine test was done today and result was negative. The risks of the procedure were thoroughly explained to the patient and verbal informed consent was obtained. Speculum placed and cervix visualized. 10 cc of plain lidocaine applied to the right and left uterosacral ligaments and parametria and allowed to set up over 10 minutes. Speculum then replaced. Cervix cleansed with Betadine. Uterus sounded to 7 cm with flexible endometrial biopsy pipelle. IUD insertedwithout difficulty. String visible and trimmed to 2cm. Patient tolerated procedure well. IUD Information: Tang. Assessment: Encounter Diagnoses Name Primary? examination or test, unconfirmed Yes ??? Encounter for insertion of intrauterine contraceptive device Plan: Orders Placed This Encounter Procedures ??? POCT urine ??? Insertion Of Intrauterine Device (86763) ??? Injection Nerv Block, Paracervical [40838] ?? We discussed IUD contraceptive efficacy, side effects including irregular bleeding, and signs of displacement including pelvic pain, cramping or being unable to palpate strings. Malinda will returnin 3 months for an IUD check if desired. Please note that the above document may have been generated with voice recognition software and typographic errors may occur. Total time with chart, patient, and documentation: 15 minutes in contraception counseling addition to procedure related time Jim Marte MD 5:37 PM 11/06/2020 documented in this encounter Plan of Treatment Not on filedocumented as of this encounter Procedures Procedure Name Priority Date/Time Associated Diagnosis Comme nts POCT URINE Routine 11/06/2020 4:29 PM Results f or this CDT examination or test, procedu re are in the results unconfirmed section. documented in this encounter Results POCT urine (11/06/2020 4:29 PM CDT) [facility] Method Time Signature Urine Negative Negative POCT Test - POC Control Line Yes POCT Present, Clear Background - Internal control Cartridge Lot# [id number] POCT Specimen (Source) Anatomical Collection Method Collection Time Re ceived Time Location / / Volume Laterality Urine 11/06/2020 4:29 PM CDT Jim Marte MD ET POINT OF CARE TEST ENTER/ EDIT ORDERABLES Performing Organization Address City/State/ZIP Code Phon e Number POCT documented in this encounter Visit Diagnoses Diagnosis Encounter for insertion of intrauterine contraceptive device - Primary Counseling for control regarding i ntrauterine device (IUD) examination or test, unconfirmed documented in this encounter Administered Medications Inactive Administered Medications - up to 3 most recent administrations Medication Order MAR Action Action Date Dose Rate Site levonorgestrel (KYLEENA) 19.5 MG Given 11/06/2020 4:51 PM CDT 1 Each intrauterine device 1 Each 1 Each, Intrauterine, ONCE, On Mon11/06/20 at 1700, For 1 dose, This medication is a Category X medication. Therefore, it should not be given to patients. The patient's status must be verified before administering this medication. Hazardous waste disposal required. Administration: Single glove documented in this encounter Care Teams Rn Anesthetist Relationship Specialty Start Date End Date John Stokes MD PCP - General Family Practice 07/08/20 07/14/[address] [facility] [address] [place] [address] documented as of this encounter
--- OUTSIDE RECORDS SUMMARY | 2022-01-20 19:50 | XMS_ITS | Encounter Summary ---
:1995 Author Organization [facility] Address [address] [place] [address] Care Team Providers Name Role Phone John Stokes MD Primary Care Provider Reason for Visit Procedure/Equipment (Routine) - Incomplete Specialty Diagnoses / Procedures Referred By Contact Refer red To Contact Diagnoses Other fatigue Dizziness Orthostatic hypotension Sara Kirk MD Procedures XR Chest [address] [place], [place] [address] Referral ID Status Reason Start Date Expiration Date Visits V isits Requested Authorized [id number] Incomplete 03/18/2021 06/17/2022 1 1 Encounter Details Date Type Department Care Team Description 03/19/2021 Ancillary Procedure [place] Sara Kirk, Othe r fatigue; Radiology Dizziness; [address] Orth[address] hypotension [facility] [address] [facility] [address] [place] [address] [phone] Social History Tobacco Use Types Packs/Day Years Used Date Smoking Tobacco: Never Sex Assigned at Date Recorded Female 10/26/2020 7:23 AM CDT documented as of this encounter Plan of Treatment Not on filedocumented as of this encounter Procedures Procedure Name Priority Date/Time Associated Diagnosis Comme nts XR CHEST 2 VIEWS Routine 03/19/2021 8:35 AM Other fatigu e Results for this SERVICE TECH Dizziness procedure are in Orthostatic the results hypotension section. documented in this encounter Results XR Chest 2 Views (03/19/2021 8:35 AM SERVICE TECH) Anatomical Region Laterality Modality Chest, Lung Computed Radiography Specimen (Source) Anatomical Collection Method Collection Time Re ceived Time Location / / Volume Laterality 03/19/2021 8:27 AM SERVICE TECH Impressions 03/19/2021 11:34 AM SERVICE TECH COMPARISON: ??Chest x-ray 10/13/2020, chest CT 10/13/2020 [...] or pleural effusion. T12 butterfly vertebra body. Sara Kirk MD RAD GD documented in this encounter Visit Diagnoses Diagnosis Other fatigue Dizziness Dizziness and giddiness Orthostatic hypotension documented in this encounter Care Teams Freelance Art Director Relationship Specialty Start Date End Date John Stokes MD PCP - General Family Practice 07/08/20 07/14/21 [facility] [address] [place] [address] documented as of this encounter
--- OUTSIDE RECORDS SUMMARY | 2022-01-20 19:50 | XMS_ITS | Encounter Summary ---
:1995 [facility] Address [address], [place] [address] Care Team Providers Name Role Phone John Stokes MD Primary Care Provider Reason for Visit Reason Comments APPOINTMENT REQUEST Encounter Details Date Type Department Care Team Description 12/24/2020 Telephone [facility] Jim Marte APPOI NTMENT REQUEST Obstetrics/Gynecolog y [address] [facility] [address] [place] [address] [place], [place] [phone] (Wo rk) Social History Tobacco Use Types Packs/Day Years Used Date Smoking Tobacco: Never Sex Assigned at Date Recorded Female 10/26/2020 7:23 AM CDT documented as of this encounter Nursing Notes June Tsang RN - 12/24/2020 10:00 AM CDT Patient calling to request assistance with scheduling appointment to consult for possible PCOS. Patient states she has symptoms that support this diagnosis and would like to discuss treatment options. She states she has struggled with weight gain and difficulty with weight loss, wondering if this is caused from PCOS or current method of control. Assisted with scheduling per patient request. Sheis also planning to consult with family med regarding weight loss specifically. Future Appointments Provider Department Center 01/11/2021 10:00 AM Ramona Sargent, SCOUT EXECUTIVE, CNM [facility] [address] documented in this encounter Plan of Treatment Not on filedocumented as of this encounter Visit Diagnoses Not on filedocumented in this encounter Care Teams Securities Teller Relationship Specialty Start Date End Date John Stokes MD PCP - General Family Practice 07/08/20 07/14/21 [facility] [address] [place] [address] documented as of this encounter
--- OUTSIDE RECORDS SUMMARY | 2022-01-20 19:50 | XMS_ITS | Encounter Summary ---
:1995 Author Organization [facility] Address [address], [place] [address] Care Team Providers Name Role Phone John Stokes MD Primary Care Provider Reason for Referral Procedure/Equipment (Routine) - Incomplete Specialty Diagnoses / Procedures Referred By Contact Refer red To Contact Procedures Saba Cano PA-C US Pelvic Complete W EV [address] [place] [address] Referral ID Status Reason Start Date Expiration Date Visits V isits Requested Authorized [id number] Incomplete 12/28/2020 03/29/2022 1 1 Reason for Visit Reason Comments Abdominal Pain Encounter Details Date Type Department Care Team Description 12/28/2020 Emergency [facility] Saba Cano, Acu te bilateral lower abdominal pain; [facility] Right ovarian cyst; [address] [place] [place] [phone] Social History Tobacco Use Types Packs/Day Years Used Date Smoking Tobacco: Never Sex Assigned at Date Recorded Female 10/26/2020 7:23 AM CDT documented as of this encounter Last Filed Vital Signs Vital Sign Reading Time Taken Comments Blood Pressure 122/72 12/28/2020 1:03 PM CDT Pulse 73 12/28/2020 1:03 PM CDT Temperature 36.7 ??C (98 ??F) 12/28/2020 9:13 AM CDT Respiratory Rate 20 12/28/2020 9:13 AM CDT Oxygen Saturation 95% 12/28/2020 1:03 PM CDT Inhaled Oxygen Concentration - - Weight 95.3 kg (210 lb) 12/28/2020 9:13 AM CDT Height 170.2 cm (5' 7) 12/28/2020 9:13 AM CDT Body Mass Index 32.89 12/28/2020 9:13 AM CDT documented in this encounter Discharge Instructions Discharge InstructionsSaba Cano PA-C - 12/28/2020 1:02 PM CDT Ibuprofen 600 mg every 6 hours for pain. Take with food. Save the [place] for severe pain. DO NOT drive or drink alcohol while taking this medication as it canbe sedating. It can also make you constipated so consider taking an over the counter stool softener such as Colace to prevent constipation. [place] contains Tylenol (acetaminophen), so don't take more than 4000 mg of Tylenol daily. Discharge Instructions Ovarian Cyst Abdominal (belly) pain can be caused by many things. Your provider today has found that you have a cyst on the ovary. Women in their reproductive years form cysts every month, but only cause pain if they are very large, or if they rupture and release blood or fluid. Fortunately, they rarely require surgery or hospitalization. The pain from a ruptured cyst usually gets gradually better, and should be much better within a few days. If there is a large cyst, it will usually go away within 1-2 months, but needs to be watched to be sure it does go away, since sometimes a large cyst can become a cancer. There can be complications of a cyst, or other problems that cannot be found right away, so it is very important that you follow up as directed. Generally, every Emergency Department visit should have a follow-up clinic visit with either a primary or a specialty clinic/provider. Please follow-up as instructed by your emergency provider today. Return to the Emergency Department right away if: Your pain becomes much worse or constant You get an oral temperature above 100.4??F or as directed by your provider. You have frequent vomiting You faint, or feel very weak. You have new symptoms or anything that worries you. What can I do to help myself? Take any medication prescribed by your provider. You may use Tylenol?? (acetaminophen) or Advil??, Motrin?? (ibuprofen) for pain. Be sure to read andfollow the package directions, and ask your provider if you have questions. Avoid sex for several days, because it will probably be painful. If you were given a prescription for [...] if there is anything that worries you. documented in this encounter Medications at Time of Discharge Medication Sig Dispensed Refills Start Date End Date acetaminophen (TYLENOL) Take 1-2 Tablets by 100 Tablet 11 09/202009/01/2021 325 MG tablet mouth every 6 hours as needed for Pain. HYDROcodone-acetaminoph Take 1-2 Tablets by 8 Tablet 0 12/29/2020 en (NORCO) 5-325 MG mouth every 6 hours tablet as needed for Pain. ibuprofen (MOTRIN) 600 Take 1 Tablet by 40 Tablet 0 021 07/23/2021 MG tablet mouth every 6 hours as needed for Pain. levonorgestrel 1 Each by 1 Each 0 11/06/2020 03/17/2021 (KYLEENA) 19.5 MG Intrauterine route IUDIndications: continuous. Encounter for insertion of intrauterine contraceptive device LORazepam (ATIVAN) 0.5 Take 1 Tablet by 2 Tablet 0 11/04/ 021 03/17/2021 MG tablet mouth See Admin Instructions. 1 hr prior to procedure, repeat in 30 if needed ondansetron Take 1 Tablet by 10 Tablet 0 12/28/2020 022 (ZOFRAN-ODT) 4 MG mouth every 8 hours disintegrating tablet as needed for Nausea. documented as of this encounter ED Notes Aliya Wing RN - 12/28/2020 1:15 PM CDT The patient will be discharged to home. Patient is alert and patient is improved. Patient dischargedby: ambulation accompanied by rn Temp: 36.7 ??C (98 ??F) (12/28/20 09) Pulse: 73 (12/28/20 1303) Resp: 20 (12/28/20 09) BP: 122/72 (12/28/20 1303) SpO2: 95 % (12/28/20 130) Patient rates pain at a level of 3/10 Discharge instructions for Patient were provided to patient and reviewed at the bedside. Medication list reviewed and given to patient as summarized on the printed AVS. New prescriptions sent with patient. Belongings checklist reviewed with patient and belongings sent. The patient verbalizes understanding of discharge instructions and able to teach back instructions. Reason for discharge and necessary follow-up care with the patient's PCP and [facility] as reviewed on the printed discharge instructions. Aliya Wing RN - 12/28/2020 10:40 AM CDT Prior to administering medication, Malinda Medina was informed of which medication(s) they were about to receive and their associated side effects including impairing their ability to drive and the need to have a ride home with a responsible alliance party. Pt agreed to take an uber home Saba Cano PA-C - 12/28/2020 10:14 AM CDT Chief Complaint: Abdominal pain HPI: Malinda Medina is a 25 y.o. female with Tetralogy of Fallot with a history of laparoscopy for hemoperitoneum due to a hemorrhagic ovarian cyst in October who presents to the ED for evaluation of lower right abdominal pain and lower central abdominal pain this morning when she woke up. The patient notesthat she a fairly active individual but does not feel like she overdid it yesterday. The patient hassuspicions that she could have a cyst on her ovary because she had very similar pain in October when she had a hemorrhagic ovarian cyst. The patient reports nausea with the pain, and movement makes the pain worse. She reports that in attempt to localize the pain, her and her significant other had sexual i ntercourse. She notes that during this, she notices a sharp pain on the right side of her abdomen with penetration. In attempts to relieve her pain, the patient took 800mg of Ibuprofen and 500mg of Tylenol, she ate food, drank water and tried to use the bathroom. She had no significant improvement andpresented here via EMS. The patient reports intermittent lightheadedness today. Review of Systems Constitutional: Negative for fever. Gastrointestinal: Positive for abdominal pain and nausea. Negative for vomiting. Genitourinary: Negative for dysuria. Neurological: Positive for light-headedness. All other systems reviewed and are negative. Of note, the patient usually receives her cares through the [facility] and [facility]. Her chart was updated through Care Everywhere, but may be somewhat limited. Allergies: Estrogens Medications: acetaminophen (TYLENOL) 325 MG tablet ibuprofen (MOTRIN) 600 MG tablet levonorgestrel (KYLEENA) 19.5 MG IUD LORazepam (ATIVAN) 0.5 MG tablet Medical History: Cyst of left ovary Female pelvic pain Hemoperitoneum Malpositioned IUD (HRC) History of tetralogy of Fallot repair Arcuate uterus BMI 32.0-32.9,adult Hemorrhagic ovarian cyst Tetralogy of Fallot ? Hemivertebra ?? 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 Febrile seizure (HC) ? Croup Migraine LORNA Surgical History: Tetralogy of Fallot Cardiac valve surgery Peripheral nerve stimulator Bronchoscopy CVL septal closure pfo Family History: Breast Cancer Diabetes Colorectal Cancer Social History: The patient has a partner. The patient presents alone. She is employed. Vital Signs: Triage Vitals [12/28/20 0913] Temp 36.7 ??C (98 ??F) Temp src Oral Pulse 98 Resp 20 BP 121/78 SpO2 100 % Physical Exam Constitutional: Pleasant. Cooperative. Not writhing in pain. Eyes: Pupils equally round and reactive HENT: Normal phonation. Cardiovascular: Regular rate and rhythm. 4/6 systolic murmur. Respiratory: Normal respiratory effort, lungs are clear bilaterally. GI: Abdomen is soft, non-distended. Right lower quadrant, suprapubic, and periumbilical tenderness with voluntary guarding. Musculoskeletal: No CVA tenderness. Skin: No pallor or diaphoresis. Neurologic: Cranial nerves grossly intact, alert, speech is normal. Psychiatric: Normal affect. Nursing notes and vital signs reviewed. Imaging: Results per radiology. Please see formal Radiology read for further details. US Pelvic Complete with EV 1. 4.3 cm simple appearing right ovarian cyst. This is considered benign, and per current consensus guidelines requires no specific follow-up. 2. Otherwise unremarkable pelvic ultrasound. Laboratory: CBC with Differential: WBC 6.7 (WNL), Hgb 12.1 (WNL), Plts 220 (WNL), o/w WNL BMP: Cr 0.77 (WNL) o/w WNL UA: sperm urine present o/w WNL Test Screen Blood: Negative ED Course: Reviewed: I reviewed the patient's past medical history, previous medical charts and nursing notes. Assessments / Reassessments: 1014 I performed initial history and physical exam of the patient. [facility] database was reviewed. Interventions: 1043 Zofran 4mg, ODT 1043 Oxycodone 5mg, PO 1214 Oxycodone 5mg, PO Disposition: Discharged. Following our examination and treatment, any identified emergency medical condition has resolved. Patient is stable for discharge and may pursue follow-up care as recommended. Medications Prescribed this Visit Disp Refills Start End ondansetron (ZOFRAN-ODT) 4 MG disintegrating tablet 10 Tablet 0 12/28/2020 Take 1 Tablet by mouth every 8 hours as needed for Nausea. Oral HYDROcodone-acetaminophen (NORCO) 5-325 MG tablet 8 Tablet 0 12/28/2020 Take 1-2 Tablets by mouth every 6 hours as needed for Pain. Oral Last EC Vitals: Temp: 36.7 ??C (98 ??F) (12/28 912) Temp src: Oral (12/28 912) Pulse: 73 (12/28 1303) Resp: 20 (12/28 912) BP: 122/72 (12/28 1303) SpO2: 95 % (12/28 130) Impression and Plan: Malinda Medina is a 25 y.o. female with a history of Tetralogy of Fallot and ruptured hemorrhagic ovarian cyst requiring laparoscopy in October of this year with concurrent removal of a malpositioned IUD presenting now with acute right lower abdominal pain this morning with associated nausea, reminiscent of the pain she had with her ruptured left ovarian cyst in October. Her pain is worse with movement and was also worse with intercourse this morning. She is tender across the lower abdomen, perhaps moretender in the right pelvis. Her hemoglobin is stable, and she does not have a leukocytosis or any fever or other infectious symptoms. Given the abrupt onset, I have low suspicion for appendicitis. Painis not colicky or radiating to the flanks, so I also have low suspicion for a ureteral stone. Ultrasound shows a 4 cm right ovarian cyst without any abnormal free fluid or findings worrisome for torsion. The nature of her pain is also not suggestive of ovarian torsion. Repeat examination following theabove interventions shows no peritoneal findings. I discussed with her that I had low suspicion thatthere was an alternate explanation for the pain such as appendicitis, colitis, bowel obstruction, orother process that would warrant an abdominal CT today, and after shared decision-making discussion she has deferred CT of the abdomen and pelvis today. We discussed that the cyst can take a while to shrink back down and that pain can last for several days. I discussed management with NSAIDs primarilyand heating pads as well as avoidance of significant physical exertion. I will give her few tablets of [place] to use at bedtime if she is having severe pain. I reviewed the [place] prescription monitoring database and advised he that this can be a sedating medication. [facility] so she will keep that appointment. She is worried that she may havePCOS, and she certainly does have several symptoms suggestive of that, so if she wants to follow up with OBGYN to discuss that further she may do so. Return to the emergency department with severe pain, syncope, significant lightheadedness with pallor and diaphoresis, fevers, or with other emergent concerns. Questions are answered and she is discharged home. Diagnosis: Final diagnoses: [R10.31, R10.32] Acute bilateral lower abdominal pain [N83.201] Right ovarian cyst [R11.0] Nausea [employer] I, Shalom Gautam, am serving as a scribe at 10:14 AM to document services personally performed by Saba Cano PA-C, based on my observations and the provider's statements to me. 12/28/2020 [facility] Portions of this medical record were completed by a scribe. UPON MY REVIEW AND AUTHENTICATION BY ELECTRONIC SIGNATURE, this confirms (a) I performed the applicable clinical services, and (b) the recordis accurate. Saba Cano PA-C 12/28/20 [facility] Saba Cano PA-C 12/28/201928 documented in this encounter Plan of Treatment Not on filedocumented as of this encounter Procedures Procedure Name Priority Date/Time Associated Comments Diagnosis UA CONDITIONAL UC STAT 12/28/2020 11:36 Result s for this AM CDT procedure are i n the results section. US PELVIC COMPLETE W STAT 12/28/2020 11:35 Res ults for this EV AM CDT procedure are i n the results section. EXTRA LAVENDER TOP STAT 12/28/2020 9:47 AM Res ults for this TUBE CDT procedure are i n the results section. CBC AND DIFFERENTIAL STAT 12/28/2020 9:47 AM R esults for this PANEL CDT procedure are i n the results section. RAINBOW DRAW AND HOLD STAT 12/28/2020 9:47 AM Results for this CDT procedure are i n the results section. EXTRA GOLD/SST TUBE STAT 12/28/2020 9:47 AM Re sults for this CDT procedure are i n the results section. EXTRA LIGHT GREEN STAT 12/28/2020 9:47 AM Resu lts for this TUBE CDT procedure are i n the results section. COMPLETE BLOOD STAT 12/28/2020 9:47 AM Results for this COUNT-W/DIFF CDT procedure are i n the results section. BASIC METABOLIC PANEL STAT 12/28/2020 9:47 AM Results for this CDT procedure are i n the results section. HCG,QUALITATIVE, Add-On 12/28/2020 9:47 AM Resul ts for this SERUM CDT procedure ar e in the results section. documented in this encounter Results (ABNORMAL) UA Conditional UC: (12/28/2020 11:36 AM CDT) [facility] Method Time Signature Urine Culture Urinalysis 12/28/2020 [facility] Comment results do 12:04 PM LABORATORY not meet CDT criteria for urine culture reflex. Urine Color Yellow Straw-Yello 12/28/2020 [facility] w 12:04 PM LABORATORY CDT Urine Clarity Clear Clear 12/28/2020 [facility] 12:04 PM LABORATORY CDT Specific 1.010 1.005 - 12/28/2020 [facility] [place], Urine 1.030 12:04 PM LABORATORY CDT PH Urine 6.0 5.0 - 8.0 12/28/2020 [facility] 12:04 PM LABORATORY CDT Protein, Urine Negative Negative 12/28/2020 [facility] Qual (mg/dL) 12:04 PM LABORATORY CDT Glucose Urine Negative Negative 12/28/2020 [facility] Qual (mg/dL) 12:04 PM LABORATORY CDT Ketones, Urine Negative Negative 12/28/2020 [facility] (mg/dL) 12:04 PM LABORATORY CDT Urobilinogen, <2.0 <2.0 12/28/2020 [facility] Urine (EU/dL) 12:04 PM LABORATORY CDT Bilirubin Negative Negative 12/28/2020 [facility] Urine 12:04 PM LABORATORY CDT Blood, Urine Negative Neg/Trace 12/28/2020 [facility] 12:04 PM LABORATORY CDT Nitrite Urine Negative Negative 12/28/2020 [facility] 12:04 PM LABORATORY CDT Leukocyte Est. Negative Negative 12/28/2020 [facility] 12:04 PM LABORATORY CDT Red Blood <1 0 - 3 /HPF 12/28/2020 [facility] Cells 12:04 PM LABORATORY CDT White Blood 3 0 - 5 /HPF 12/28/2020 [facility] Cells 12:04 PM LABORATORY CDT Squamous Occasional None Seen, 12/28/2020 [facility] Epithelial Occasional, 12:04 PM LABORATORY Cells Few /HPF CDT Sperm, Urine Present (A) None Seen 12/28/2020 [facility] /HPF 12:04 PM LABORATORY CDT Urine Source Clean Catch 12/28/2020 [facility] 12:04 PM LABORATORY CDT Specimen Anatomical Collection Method Collection Time Receive d Time (Source) Location / / Volume Laterality Urine URINE SPECIMEN Non-blood 12/28/2020 11:36 COLLECTION, CLEAN Collection / AM CDT 11:43 AM C DT CATCH / Unknown Unknown Saba Cano PA-C LAB_1 Performing Organization Address City/State/ZIP Code Phon e Number [facility] [address] [place] [address] Pelvic Complete W EV (12/28/2020 11:35 AM CDT) Anatomical Region Laterality Modality Pelvis Ultrasound Specimen (Source) Anatomical Collection Method Collection Time Re ceived Time Location / / Volume Laterality 12/28/2020 10:58 AM CDT Impressions 12/28/2020 11:39 AM CDT COMPARISON: Ultrasound 10/13/2020 TECHNIQUE: ??Transabdominal and transvag inal imaging was performed. FINDINGS: ?? Uterus: Measures 7.9 x 2.6 x 4.2 cm. Jaleesa ears unremarkable. Endometrium: Measures up to 0.6 cm in th ickness. ?? Right Ovary: Measures 4.6 x 4.6 x 4.7 cm and contains a 4.3 x 4.1 x 4.3 cm simple appearing cyst. Right Ovary Blood Flow: Present. Left Ovary: Measures 3.2 x 1.9 x 2.6 cm and appears unremarkable Left Ovary Blood Flow: Present. Free Fluid: no significant free fluid. IMPRESSION: 1. 4.3 cm simple appearing right ovarian cyst. This is considered benign, and per current consensus guidelines requires no specific follow-up. 2. Otherwise unremarkable pelvic ultraso und. Procedure Note Kumar Singh MD - 12/28/2020Forma tting of this note might be different from the original. IMPRESSION COMPARISON: Ultrasound 10/13/2020 TECHNIQUE: Transabdominal and transvagin al imaging was performed. FINDINGS: Uterus: Measures 7.9 x 2.6 x 4.2 cm. Jaleesa ears unremarkable. Endometrium: Measures up to 0.6 cm in th ickness. Right Ovary: Measures 4.6 x 4.6 x 4.7 cm and contains a 4.3 x 4.1 x 4.3 cm simple appearing cyst. Right Ovary Blood Flow: Present. Left Ovary: Measures 3.2 x 1.9 x 2.6 cm and appears unremarkable Left Ovary Blood Flow: Present. Free Fluid: no significant free fluid. IMPRESSION: 1. 4.3 cm simple appearing right ovarian cyst. This is considered benign, and per current consensus guidelines requires no specific follow-up. 2. Otherwise unremarkable pelvic ultraso und. Saba Cano PA-C RAD US Test Screen Blood (12/28/2020 9:47 AM CDT) Analysis Performed At Patho logist Time Signature HCG, Serum Negative Negative 12/28/2020 [facility] Qual 10:25 AM CDT LABORATORY Specimen Anatomical Collection Method / Collection Time Recei terra Time (Source) Location / Volume Laterality Blood Venipuncture 12/28/2020 9:47 12/28/2020 [facility] / Unknown AM CDT 10:05 AM CDT Saba Cano PA-C LAB_1 Performing Organization Address City/[facility]/ZIP Code Phon e Number [facility] [address] [place] [address] Extra Gold/SST Tube (12/28/2020 9:47 AM CDT) Patholo gist Method Time Signature Extra Specimen 12/28/2020 [facility] Gold/SST Tube will be held 12:00 PM CDT LABORATORY Drawn for 5 days Specimen Anatomical Collection Method / Collection Time Recei terra Time (Source) Location / Volume Laterality Blood Venipuncture 12/28/2020 9:47 12/28/2020 [facility] / Unknown AM CDT 10:05 AM CDT Mateo De Santiago MD LAB_1 Performing Organization Address City/State/ZIP [facility] Phon e Number [facility] [address] [place] [address] Extra Light Green Tube (12/28/2020 9:47 AM CDT) Patholo gist Method Time Signature Extra Light Specimen 12/28/2020 [facility] Green Tube will be held 12:00 PM CDT LABORATORY Drawn for 5 days Specimen Anatomical Collection Method / Collection Time Recei terra Time (Source) Location / Volume Laterality Blood Venipuncture 12/28/2020 9:47 12/28/2020 [facility] / Unknown AM CDT 10:05 AM CDT Mateo De Santiago MD LAB_1 Performing Organization Address City/[facility]/ZIP Code Phon e Number [facility] [address] [place] [address] Extra Lavender top tube (12/28/2020 9:47 AM CDT) Patholo gist Method Time Signature Extra Specimen 12/28/2020 [facility] Lavender Top will be held 12:00 PM CDT LABORATORY Drawn for 3 days Specimen Anatomical Collection Method / Collection Time Recei terra Time (Source) Location / Volume Laterality Blood Venipuncture 12/28/2020 9:47 12/28/2020 [facility] / Unknown AM CDT 10:04 AM CDT Mateo De Santiago MD LAB_1 Performing Organization Address City/[facility]/ZIP Code Phon e Number [facility] [address] [place] [address] Complete Blood Count-W/Diff (12/28/2020 9:47 AM CDT) athologist Signature WBC 6.7 3.5 - 10.5 12/28/2020 [facility] x10(9)/L 10:13 AM CDT LABORATORY RBC 4.08 3.90 - 12/28/2020 [facility] 5.03 10:13 AM CDT LABORATORY x10(12)/L Hemoglobin 12.1 12.0 - 12/28/2020 [facility] 15.5 g/dL 10:13 AM CDT LABORATORY HCT 36.7 34.9 - 12/28/2020 [facility] 44.5 % 10:13 AM CDT LABORATORY MCV 90.0 80.0 - 12/28/2020 [facility] 100.0 fL 10:13 AM CDT LABORATORY MCH 29.7 27.6 - 12/28/2020 [facility] 33.3 pg 10:13 AM CDT LABORATORY MCHC 33.0 31.5 - 12/28/2020 [facility] 35.2 g/dL 10:13 AM CDT LABORATORY RDW 12.2 11.9 - 12/28/2020 [facility] 15.5 % 10:13 AM CDT LABORATORY Platelets 220 150 - 450 12/28/2020 [facility] x10(9)/L 10:13 AM CDT LABORATORY Automated NRBC 0 <=0 /100 12/28/2020 [facility] WBC 10:13 AM CDT LABORATORY Neutrophil 4.1 1.7 - 7.0 12/28/2020 [facility] Absolute 10(9)/L 10:13 AM CDT LABORATORY Lymphocyte 2.0 1.0 - 4.8 12/28/2020 [facility] Absolute 10(9)/L 10:13 AM CDT LABORATORY Monocytes 0.5 0.2 - 0.9 12/28/2020 [facility] Absolute 10(9)/L 10:13 AM CDT LABORATORY Eosinophil 0.1 0.0 - 0.5 12/28/2020 [facility] Absolute 10(9)/L 10:13 AM CDT LABORATORY Basophil 0.0 0.0 - 0.3 12/28/2020 [facility] Absolute 10(9)/L 10:13 AM CDT LABORATORY Immature Gran % 0.1 0.0 - 0.5 12/28/2020 [facility] % 10:13 AM CDT LABORATORY Specimen Anatomical Collection Method / Collection Time Recei terra Time (Source) Location / Volume Laterality Blood Venipuncture 12/28/2020 9:47 12/28/2020 [facility] / Unknown AM CDT 10:04 AM CDT Mateo De Santiago MD LAB_1 Performing Organization Address City/State/ZIP Code Phon e Number [facility] [address] [place] [address] Basic Metabolic Panel (12/28/2020 9:47 AM CDT) P athologist Signature Sodium 138 136 - 145 12/28/2020 [facility] mmol/L 10:33 AM CDT LABORATORY Potassium 3.9 3.5 - 5.1 12/28/2020 [facility] mmol/L 10:33 AM CDT LABORATORY Chloride 105 98 - 109 12/28/2020 [facility] mmol/L 10:33 AM CDT LABORATORY CO2 25 20 - 29 12/28/2020 [facility] mmol/L 10:33 AM CDT LABORATORY Anion Gap 8 7 - 16 12/28/2020 [facility] mmol/L 10:33 AM CDT LABORATORY Calcium 8.9 8.4 - 10.4 12/28/2020 [facility] mg/dL 10:33 AM CDT LABORATORY BUN 16 7 - 26 12/28/2020 [facility] mg/dL 10:33 AM CDT LABORATORY Creatinine 0.77 0.55 - 12/28/2020 [facility] 1.02 mg/dL 10:33 AM CDT LABORATORY GFR, Estimated >60 >60 12/28/2020 [facility] mL/min/1.7 10:33 AM CDT LABORATORY 3m2 Glucose 72 70 - 100 12/28/2020 [facility] mg/dL 10:33 AM CDT LABORATORY Comment: The given reference range is fo r the fasting state. Non-fasting reference range for glucose is 70 - 180 mg/dL. Specimen Anatomical Collection Method / Collection Time Recei terra Time (Source) Location / Volume Laterality Blood Venipuncture 12/28/2020 9:47 12/28/2020 [facility] / Unknown AM CDT 10:05 AM CDT Mateo De Santiago MD LAB_1 Performing Organization Address City/State/ZIP Code Phon e Number [facility] [address] [place] [address] documented in this encounter Visit Diagnoses Diagnosis Acute bilateral lower abdominal pain Abdominal pain, other specified site Right ovarian cyst Other and unspecified ovarian cyst Nausea Nausea alone Triage Assessment Note - Giancarlo Sandoval RN - 12/28/2020 9:12 AM CDT Presents to ER with right lower quadrant cramping. She reports she had similar symptoms when she hadan ovarian cyst rupture. She has taken 800 mg of Ibuprofen and 500 mg of Acetaminophen with some relief. Reports feeling nauseated as well. Denies dysuria. documented in this encounter Administered Medications Inactive Administered Medications - up to 3 most recent administrations Medication Order MAR Action Action Date Dose Rate Site ondansetron (ZOFRAN-ODT) Given 12/28/2020 10:43 AM CDT 4 mg disintegrating tablet 4 mg 4 mg, Oral, ONCE, On Mon12/28/20 at 1100, For 1 dose, For nausea or vomiting oxyCODONE (ROXICODONE) immediate release Given 12/28/2020 10:43 AM CDT 5 mg tablet 5 mg 5 mg, Oral, ONCE, On Mon12/28/20 at 1100, For 1 dose oxyCODONE (ROXICODONE) immediate release Given 12/28/2020 12:14 PM CDT 5 mg tablet 5 mg 5 mg, Oral, ONCE, On Mon12/28/20 at 1215, For 1 dose sodium chloride 0.9% injection 10-60 mL 10-60 mL, Intravenous, PRN, Line Patency, Line Care, S tarting on Mon12/28/20 at 0927, Until Mon12/28/20 at 1517, For 8 hours documented in this encounter Active and Recently Administered Medications Times are shown in CDT. Scheduled Medication Order 12/26/2020 12/27/2020 12/28/2020 ondansetron (ZOFRAN-ODT) disintegrating tablet 4 mg (COMPLETED) 1043 (Given - Provider: Aliya Wing RN) 4 mg, Oral, ONCE, On Mon12/28/20 at 1100, For 1 dose, For nausea or vomiting oxyCODONE (ROXICODONE) immediate release tablet 5 mg (COMPLETED) 1043 (Given - Provider: Aliya Wing RN) 5 mg, Oral, ONCE, On Mon12/28/20 at 1100, For 1 dose oxyCODONE (ROXICODONE) immediate release tablet 5 mg (COMPLETED) 1214 (Given - Provider: Aliya Wing RN) 5 mg, Oral, ONCE, On Mon12/28/20 at 1215, For 1 dose PRN Medication Order 12/26/2020 12/27/2020 12/28/2020 sodium chloride 0.9% injection 10-60 mL 10-60 mL, Intravenous, PRN, Line Patency , Line Care, Starting on Mon12/28/20 at 0927, Until Mon12/28/20 at 1517, For 8 hours documented in this encounter Care Teams Activity Aid Relationship Specialty Start Date End Date John Stokes MD PCP - General Family Practice 07/08/20 07/14/21 [facility] [address] [place] [address] documented as of this encounter
--- OUTSIDE RECORDS SUMMARY | 2022-01-20 19:50 | XMS_ITS | Encounter Summary ---
:1995 Author Organization [employer] Address [address] [place] [address] Care Team Providers Name Role Phone John Stokes MD Primary Care Provider Reason for Visit Reason Comments VAGINAL BLEEDING Encounter Details Date Type Department Care Team Description 01/06/2021 Nurse Triage [facility] Nurse [facility] John Stokes MD VAGINAL BLEEDING [address] [facility] [address] [facility] [address] [address] [place] [address] [phone] (Wo rk) Social History Tobacco Use Types Packs/Day Years Used Date Smoking Tobacco: Never Sex Assigned at Date Recorded Female 10/26/2020 7:23 AM CDT documented as of this encounter Nursing Notes Mylene De Santiago RN - 01/06/2021 6:20 PM CDT Pt called and said she has intermittent abdominal pain, rated pain 4/10. Vaginal bleeding started 6:00 pm. She thinks she may be filling a panty liner every couple hours. When she noticed the bleeding,it soaked through pants and underwear. Does not know the color of the blood because she was wearing black. Right now the color on her panty liner is orange. Not heavy bleeding like a period. Her periodis due to start in 1.5 weeks, 2 weeks since last period. 01/04/21 [facility], rapid test positive, PCR positive today. Covid symptoms started 01/02/21. 12/28/20 pt was seen in ED, diagnosed with right ovarian cyst, nausea, acute bilateral lower abdominal pain, prescribed Ondansetron, hydrocodone-acetaminophen. Pt said someone told her to call if pain comes back and/or she starts bleeding. Nurse paged automation qa lead provider Raghu Florention MD. A low dose IUD can cause bleeding, covid can cause bleeding and mess up period. If pt starts changing pads every hour for 6 hours she would need to be seen. Appointment on 01/19/21 is ok. Nurse called pt and gave her the advice of automation qa lead provider. Pt said her IUD was removed by [facility] in November 2020. Reason for Disposition ??? [1] Bleeding or spotting between regular periods AND [2] occurs three cycles (3 months) or less this past year Protocols used: VAGINAL BLEEDING - [id number] Problem list reviewed as related to this call. documented in this encounter Plan of Treatment Not on filedocumented as of this encounter Visit Diagnoses Not on filedocumented in this encounter Care Teams Platinum Smith Relationship Specialty Start Date End Date John Stokes MD PCP - General Family Practice 07/08/20 07/14/21 [facility] [address] [place] [address] documented as of this encounter
--- OUTSIDE RECORDS SUMMARY | 2022-01-20 19:50 | XMS_ITS | Encounter Summary ---
:1995 Author Organization [email or web address] Address [address] [place] [address] Care Team Providers Name Role Phone John Stokes MD Primary Care Provider Reason for Visit Auth/Cert Specialty Diagnoses / Procedures Referred By Contact Refer red To Contact Diagnoses Hemoperitoneum Female pelvic pain Hemorrhagic ovarian cyst History of tetralogy of Fallot Hemorrhagic ovarian cyst Hemoperitoneum Female pelvic pain History of tetralogy of Fallot Hemorrhagic ovarian cyst Hemoperitoneum Female pelvic pain History of tetralogy of Fallot Referral ID Status Reason Start Date Expiration Date Visits Requ ested Visits Authorized [id number] 1 1 Encounter Details Date Type Department Care Team Description 10/13/2020 Anesthesia Event Synagogue Operating Alcon Taylor MD [address] [place] [address] Room Chris Kaplan MD [address] [place] [address] [place] [address] Anesthesia Record Procedure Summary Procedure Name Responsible Anesthesia Start Anesthesia Stop Anesthesiologist Time Time Laparoscopy with Alcon Taylor MD 10/13/20 18410/13/202037 evacuation of hemoperitoeum, left ovarian cystectomy, removal of intrauterine device Events Date Time Event Comment 10/13/2020 1839 1840 An Start 1840 Quick Note Anesthesia start time denotes sedation started by REAL ESTATE INSPECTOR currently o n case; patient continuously monitored to O.R . by REAL ESTATE INSPECTOR 184 An Start Data 1848 MD/DO Present 1848 An Induction 1850 An Intubation 1858 MD/DO Present Arms tuck/pad bi lat. 1921 MD/DO Present 2027 MD/DO Present 2030 An Extubation Purposeful movem ent with spontaneous respirations and adequate air exchange. Suctioned and ETT removed. Transfe rred with oxygen to recovery. 2032 an stop data 2037 Care Handoff Note I discussed wi th the receiving nurse and we: 1) Identified the p atient, ly family member(s) or patient surrogat e 2) Identified the responsible practitioner 3) Reviewed the pertinent medical history 4) Discu ssed the surgical/procedure course 5) Reviewed intr a-op anesthesia management and issues during an esthesia 6) Set expectations for the post-procedu re period 7) Allowed opportunity for questions an d acknowledgement of understanding of report Electr onically signed by Ramona Bone APRN, BANDAR 2037 An Stop Care transferred . Name Total midazolam injection 2 mg/2 mL (VERSED) 2 mg fentaNYL injection (SUBLIMAZE) 100 mcg HYDROmorphone injection 1 mg/mL (DILAUDID) 0.5 mg lidocaine 1% PF injection (XYLOCAINE) 70 mg propofol 10 mg/mL IV (DIPRIVAN) 140 mg succinylcholine injection (QUELICIN) 140 mg rocuronium injection (ZEMURON) 50 mg neostigmine 5 mg/5mL injection (PROSTIGMIN) 5 mg glycopyrrolate 0.2 mg/mL injection (ROBINUL) 0.8 mg ondansetron injection (ZOFRAN) 4 mg dexamethasone 4 mg/mL injection (DECADRON) 4 mg ePHEDrine 10 mg/mL injection 10 mg lactated ringers infusion 800 mL Agents Name O2 Air Sevoflurane () Identified Agent Name Blood No blood administrations on file. Lines, Drains, and Airways Type Details Placement Removal Peripheral IV Placement Date: 10/13/20826 by 10/13/202253 b y 10/13/20; Placement Giancarlo Sandoval RN Nielsen, Kara A, RN Time: 826; Pre-existing: No; Inserted by?: RN; Size (Gauge): 18 G; Orientation: Right; Site Prep: ChloraPrep; Local Anesthetic: None; Insertion attempts: 1; Blood draw with insertion?: yes; Patient Tolerance: Tolerated well; Removal Date: 10/13/20; Removal Time: 2253 ETT Placement Date: 10/13/201850 by 10/13/202030 b y 10/13/20; Placement Rashida Saba Yash, JOSSELINE, RashidaChioma, Time: 1850; Placed By: JUAN CARLOS PORTILLO APRN, CRNA; Induction Type: Pre-O2, IV; Masking: Easy; ETT Type: ETT; Size (mm): 7.0; Depth Secured (cm): 22 cm; Cuffed: Cuffed; Intubation Method: DL; Cormack_Lehane Glottic Grade: Grade 1; Glottic View: Cords Open, Cords Clear; Blade: MAC; Blade Size: 3; Insertion attempts: 1; Difficulty: Atraumatic; Adjunct Equipment: Stylet; Placement Verification: BBSE, Positive EtCO2; Teeth and Lips Unchanged: Unchanged; Removal Date: 10/13/20; Removal Time: 2030 Indwelling Urethral 10/13/20; 1912; No; 10/13/201912 by [address] Hayden; Indwelling Fannie Robb RN Schurr, Kinsey E, Catheter; 16 Fr.; 1; RN No Longer Needed Incision/Surgical Site 10/13/20; 1934; #2; 10/13/201934 by 09/28 by No; Vagina (vaginal Fannie Robb RN Nielsen, Kara A, RN access); 10/13/20; 2253 Incision/Surgical Site 10/13/20; 1941; #1 10/13/201941 by 10/13 by (trocar sites x3); No; Fannie Robb RN Niel sen, Kara A, RN Abdomen; Anterior; 10/13/20; 2253 documented in this encounter Social History Tobacco Use Types Packs/Day Years Used Date Smoking Tobacco: Never Sex Assigned at Date Recorded Female 10/26/2020 7:23 AM CDT documented as of this encounter Miscellaneous Notes Anesthesia Postprocedure Evaluation - Alcon Taylor MD - 10/13/2020 9:28 PM CDT [facility] Anesthesia Post-op Note Patient: Malinda Medina Post-Op Diagnosis: Hemorrhagic ovarian cyst, hemoperitoneum, female pelvic pain Procedure Performed: Procedure(s): Laparoscopy with evacuation of hemoperitoeum, left ovarian cystectomy, removal of intrauterine device - Wound Class: 1 CLEAN Anesthesia Type: General Post-op vital signs: Vitals Value Taken Time BP 104/82 10/13/20 2100 Temp 36 ??C (96.8 ??F) 10/13/202114 Pulse 81 10/13/202114 Resp 18 10/13/202114 SpO2 100 % 10/13/202114 Pain Score: Presence Of Pain: denies Preferred Pain Scale: number (Numeric Rating Pain Scale) Pain Rating (0-10): Rest: 0 Post-op assessment: No anesthesia complication. Patient location: PACU Airway Status: Patent Cardiovascular function: Satisfactory Hydration status: Satisfactory PONV: Treated in PACU Level of Consciousness: Awake Fully Participates Postop Assessment: Patient tolerated procedure well. Electronically signed by: Alcon Taylor MD 10/13/2020 9:28 PM Anesthesia Preprocedure Evaluation - Alcon Taylor MD - 10/13/2020 6:25 PM CDT [facility] Anesthesia Pre-op Evaluation Procedure: Procedure(s): Laparoscopy with evacuation of hemoperitoeum, possible left ovarian cystectomy vs. oophorectomy, removal of intrauterine device HPI: 24 y.o. old female with Hemorrhagic ovarian cyst, hemoperitoneum, female pelvic pain NPO Status: Last Fluid Intake Date: 10/12/20 Last Food Intake Date: 10/12/20 No Known Allergies No past medical history on file. Patient Active Problem List Diagnosis ??? Cyst of left ovary ??? Female pelvic pain ??? Hemoperitoneum ??? Malpositioned IUD (HRC) ??? History of tetralogy of Fallot repair ??? Arcuate uterus ??? BMI 32.0-32.9,adult ??? Hemorrhagic ovarian cyst No past surgical history on file. No current outpatient medications on file as of 10/13/2020. Facility-Administered Medications as of 10/13/2020 Medication Dose Route Frequency ??? [JUN Hold] acetaminophen (TYLENOL) tablet 650 mg 650 mg Oral Q6H PRN ??? [MAR Hold] benzocaine-menthol (CEPACOL) lozenge 1 Lozenge 1 Lozenge Oral Q2H PRN ??? [JUN Hold] calcium carbonate (TUMS) chewable tablet 500 mg 500 mg Oral Q4H PRN ??? fentaNYL (SUBLIMAZE) injection 25-50 mcg 25-50 mcg Intravenous Q5MIN PRN ??? fentaNYL (SUBLIMAZE) injection 25-50 mcg 25-50 mcg Intravenous Q5MIN PRN ??? [JUN Hold] guaiFENesin (ROBITUSSIN) 100 MG/5ML oral liquid 10 mL 10 mL Oral Q4H PRN ??? HYDROmorphone (DILAUDID) injection 0.2-0.3 mg 0.2-0.3 mg Intravenous Q10MIN PRN ??? [JUN Hold] HYDROmorphone (DILAUDID) injection 0.2-1 mg 0.2-1 mg Intravenous Q3H PRN ??? [COMPLETED] HYDROmorphone (DILAUDID) injection 0.5 mg 0.5 mg Intravenous Once ??? [COMPLETED] HYDROmorphone (DILAUDID) injection 0.5 mg 0.5 mg Intravenous Now ??? [COMPLETED] iopamidol (ISOVUE-300) 61 % injection 100 mL 100 mL Intravenous Once ??? [COMPLETED] iopamidol (ISOVUE-370) 76 % injection 100 mL 100 mL Intravenous Once ??? [COMPLETED] ketorolac (TORADOL) injection 15 mg 15 mg Intravenous Once ??? lactated ringers infusion 25 mL/hr Intravenous Continuous ??? [JUN Hold] lidocaine (UROJET) 2 % prefilled syringe Urethral PRN ??? meperidine (DEMEROL) injection 12.5 mg 12.5 mg Intravenous Q5MIN PRN ??? midazolam (VERSED) injection 1-2 mg 1-2 mg Intravenous Q5MIN PRN ??? naloxone (NARCAN) injection 0.08 mg 0.08 mg Intravenous PRN ??? naloxone (NARCAN) injection 0.4 mg 0.4 mg Intravenous ONCE PRN ??? [JUN Hold] NO pre-op antibiotics needed Miscellaneous Once ??? [JUN Hold] ondansetron (ZOFRAN) injection 4 mg 4 mg Intravenous Q4H PRN ??? [JUN Hold] ondansetron (ZOFRAN) injection 4 mg 4 mg Intravenous ONCE PRN ??? ondansetron (ZOFRAN) injection 4 mg 4 mg Intravenous Q4H PRN ??? [JUN Hold] polyethyl-propylene glycol (SYSTANE) 0.4-0.3 % ophthalmic solution 1 Drop 1 Drop BothEyes Q1H PRN ??? [JUN Hold] senna (SENOKOT) tablet 1 Tablet 1 Tablet Oral DAILY PRN ??? [JUN Hold] sodium chloride (OCEAN) 0.65 % nasal solution 1 Bradford 1 Bradford Both Nostrils Q2H PRN ??? [COMPLETED] sodium chloride 0.9% 0.9 % injection - ADS Override Pull ??? [COMPLETED] sodium chloride 0.9% bolus 100 mL 100 mL Intravenous Once ??? [COMPLETED] sodium chloride 0.9% infusion 1,000 mL Intravenous Once ??? [JUN Hold] sodium chloride 0.9% infusion Intravenous Continuous ??? [COMPLETED] sodium chloride 0.9% injection 10 mL 10 mL Intravenous Once ??? [COMPLETED] sodium chloride 0.9% injection 10 mL 10 mL Intravenous Once ??? [JUN Hold] sodium chloride 0.9% injection 10-60 mL 10-60 mL Intravenous BID ??? [JUN Hold] sodium chloride 0.9% injection 10-60 mL 10-60 mL Intravenous PRN Labs: Lab Results Component Value Date/Time SODIUM 139 10/13/2020 08:26 AM K 3.5 10/13/2020 08:26 AM CHLORIDE 103 10/13/2020 08:26 AM BUN 11 10/13/2020 08:26 AM CREATININE 0.80 10/13/2020 08:26 AM GLUCOSE 90 10/13/2020 08:26 AM Lab Results Component Value Date/Time WBC 5.9 10/13/2020 08:26 AM HGB 11.5 (L) 10/13/2020 02:12 PM HCT 37.1 10/13/2020 08:26 AM PLTS 212 10/13/2020 08:26 AM No results found for: INR Blood Bank: ABO (no units) Date Value 10/13/2020 O Antibody Screen Interpretation (no units) Date Value 10/13/2020 Negative EKG: No results found for this or any previous visit. Physical Exam: BP 123/75 Pulse 69 Temp 36.6 ??C (97.9 ??F) (Temporal Artery) Resp 16 SpO2 100% Assessment/Plan: Review of Systems Patient does not have GERD. Patient is not a current smoker. The patient denies alcohol use. Patient denies any recent URI. History of PONV: No. History of motion sickness: No. Patient denies any personal or family history of anesthesia complications (PONV). Exam Mental Status: Alert and oriented. Mallampati score: II (Two). Mouth opening: Normal Thyromental Distance: > 3 finger breadths and Normal Neck Extension: Full Neck Circumference > 40 cm?: No Current airway assessment:Normal Cardiac Exam: Regular rate and rhythm. Respiratory Exam: Breath sounds clear to auscultation Assessment ASA Status: 2 . Plan Anesthesia type: General and ETT Induction: Propofol Maintenance: Inhalation PONV Risk Score Peds:0 PONV Risk Score Adult: 2 PONV Prophylaxis (planned): Ondansetron and Decadron Anesthetic plan, risks, benefits and alternatives discussed with: Patient or Political Science Chair agree tothe anesthesia treatment plan and Patient. Cardiology records from [facility] reviewed. Latest studies show essentially normal LV and RV function. Pt has some limitation at extremes of exertion, but achieves 4+ METS without issue. H&P Reviewed and Patient examined, no change observed IV access Antibiotics per surgery Electronically signed by: Alcon Taylor MD 10/13/2020 6:25 PM documented in this encounter Plan of Treatment Not on filedocumented as of this encounter Visit Diagnoses Not on filedocumented in this encounter Administered Medications Inactive Administered Medications - up to 3 most recent administrations Medication Order MAR Action Action Date Dose Rate Site dexamethasone (DECADRON) injection Given 10/13/2020 6:50 PM CDT 4 mg Intravenous, Starting on Mon10/13/20 at 1850, Until Mon10/13/20 at 2037 ePHEDrine 10 mg/mL injection Given 10/13/2020 7:16 PM CDT 5 mg Intravenous, Starting on Mon10/13/20 at 1902, Until Mon10/13/20 at 2037 Given 10/13/2020 7:02 PM CDT 5 mg fentaNYL (SUBLIMAZE) injection Given 10/13/2020 6:49 PM CDT 100 mcg Intravenous, Starting on Mon10/13/20 at 1849, Until Mon10/13/20 at 2037 glycopyrrolate (ROBINUL) injection Given 10/13/2020 8:10 PM CDT 0.8 mg Intravenous, Starting on Mon10/13/20 at 2009, Until Mon10/13/20 at 2037 HYDROmorphone (DILAUDID) injection Given 10/13/2020 7:14 PM CDT 0.5 mg Intravenous, Starting on Mon10/13/20 at 1914, Until Mon10/13/20 at 2037 lactated ringers infusion Restarted 10/13/2020 6:40 PM CDT 25 mL/hr, Intravenous, CONTINUOUS, Starting on Mon10/13/20 at 1815, Administer on all preop surgery patients, ages 12 and older, unless specified differently in the Protocol for Preop Initiation of IV fluids Order Set., Pre-op Started 10/13/2020 6:18 PM CDT 25 mL/hr 25 mL/hr lidocaine PF (XYLOCAINE) 1 % injection Given 10/13/2020 6:49 PM CDT 70 mg Intravenous, Starting on Mon10/13/20 at 1849 midazolam (VERSED) injection Given 10/13/2020 6:40 PM CDT 2 mg Intravenous, Starting on Mon10/13/20 at 1840, Until Mon10/13/20 at 2037 neostigmine (PROSTIGMINE) injection Given 10/13/2020 8:10 PM CDT 5 mg Intravenous, Starting on Mon10/13/20 at 2010, Until Mon10/13/20 at 2037 ondansetron (ZOFRAN) injection Given 10/13/2020 6:50 PM CDT 4 mg Intravenous, Starting on Mon10/13/20 at 1850, Until Mon10/13/20 at 2037 propofol (DIPRIVAN) 10 mg/mL injection Given 10/13/2020 6:49 PM CDT 140 mg Intravenous, Starting on Mon10/13/20 at 1849, Until Mon10/13/20 at 2037 rocuronium (ZEMURON) injection Given 10/13/2020 7:17 PM CDT 20 mg Intravenous, Starting on Mon10/13/20 at 1906, Until Mon10/13/20 at 2037 Given 10/13/2020 7:06 PM CDT 30 mg succinylcholine (QUELICIN) injection Given 10/13/2020 6:49 PM CDT 140 mg Intravenous, Starting on Mon10/13/20 at 1849, Until Mon10/13/20 at 2037 documented in this encounter Care Teams Honey Processor Relationship Specialty Start Date End Date John Stokes MD PCP - General Family Practice 07/08/20 07/14/21 [facility] [address] [place] [address] documented as of this encounter
--- OUTSIDE RECORDS SUMMARY | 2022-01-20 19:50 | XMS_ITS | Encounter Summary ---
:1995 Author Organization [facility] Address [address] [address] Care Team Providers Name Role Phone John Stokes MD Primary Care Provider Reason for Visit Reason Comments QUESTIONS, GENERAL Encounter Details Date Type Department Care Team Description 10/14/2020 [facility]phone [facility] CatrachoSayra MD QUESTIONS, GENERAL Obstetrics/Gynecolog y [address] [facility] 5[address] [place] [address] [phone] (Wo rk) Social History Tobacco Use Types Packs/Day Years Used Date Smoking Tobacco: Never Sex Assigned at Date Recorded Female 10/26/2020 7:23 AM CDT documented as of this encounter Nursing Notes Nikhil Johnson RN - 10/14/2020 12:38 PM CDT Called patient and reviewed provider message. She verbalized understanding and has no questions. Trever Mcmillan MD - 10/14/2020 11:57 AM CDT Chair manipulation okay for back, neck and shoulders. Ramona Grimes RN - 10/14/2020 9:37 AM CDT Reason for Call: Clinician input needed on symptom based concern. Next Steps: Document further recommendations and route to appropriate person or pool. Caller IS expecting a call back from Care Team. Additional Information: Pt calling in states she was seen in ER yesterday and Laparoscopy with evacuation of hemoperitoeum, left ovarian cystectomy, removal of intrauterine device was performed. She had a pre-existing appt with chiro for adjustment, she did speak with them and they reassured her they can do adjustment sitting in chair, should not be an issue. She wanted to double check with Supervisor Model Making surgeon that this would not be contraindicated. Please have covering provider advise. documented in this encounter Plan of Treatment Not on filedocumented as of this encounter Visit Diagnoses Not on filedocumented in this encounter Care Teams Technical Support Associate Relationship Specialty Start Date End Date John Stokes MD PCP - General Family Practice 07/08/20 07/14/21 [facility] [address] [place] [address] documented as of this encounter
--- OUTSIDE RECORDS SUMMARY | 2022-01-20 19:50 | XMS_ITS | Encounter Summary ---
:1995 Author Organization [facility] Address [address] [place] [address] Care Team Providers Name Role Phone John Stokes MD Primary Care Provider Reason for Referral (Routine) - Closed Specialty Diagnoses / Procedures Referred By Contact Refer red To Contact Procedures Lucian Edwards MD ECG 12 Lead [address] [facility] [address], [place] [address] Referral ID Status Reason Start Date Expiration Date Visits Requ ested Visits Authorized [id number] Closed 10/17/2020 01/16/2022 1 1 Encounter Details Date Type Department Care Team Description 10/17/2020 Emergency [facility] [address] [place] [id number] Social History Tobacco Use Types Packs/Day Years Used Date Smoking Tobacco: Never Sex Assigned at Date Recorded Female 10/26/2020 7:23 AM CDT documented as of this encounter Medications at Time of Discharge Medication Sig Dispensed Refills Start Date End Date acetaminophen (TYLENOL) Take 1-2 Tablets by 100 Tablet 11 09/202009/01/2021 325 MG tablet mouth every 6 hours as needed for Pain. ibuprofen (MOTRIN) 600 MG Take 1 Tablet by 40 Tablet 0 07/0 09/202007/23/2021 tablet mouth every 6 hours as needed for Pain. oxyCODONE (ROXICODONE) 5 Take 1 Tablet by 10 Tablet 0 10/1310/27/2020 MG immediate release mouth every 6 hours tablet as needed for Pain. senna (SENNA LAXATIVE) Take 1 Tablet by 100 Tablet 0 021 10/27/2020 8.6 MG tablet mouth two times daily as needed for Constipation. documented as of this encounter Plan of Treatment Scheduled Orders Name Type Priority Associated Diagnoses Order S chedule ECG 12 Lead EKG STAT ONCE for 1 Occu rrences starting 10/17/2020 unti l 10/17/2020 documented as of this encounter Visit Diagnoses Not on filedocumented in this encounter Care Teams Ambulatory Technologist Relationship Specialty Start Date End Date John Stokes MD PCP - General Family Practice 07/08/20 07/14/21 [facility] [address] [place] [address] documented as of this encounter
--- OUTSIDE RECORDS SUMMARY | 2022-01-20 19:51 | XMS_ITS | Encounter Summary ---
:1995 Author Organization [facility] Address [address] [place] [address] Care Team Providers Name Role Phone John Stokes MD Primary Care Provider Reason for Referral Procedure/Equipment (Routine) - Incomplete Specialty Diagnoses / Procedures Referred By Contact Refer red To Contact Diagnoses Hemorrhagic ovarian cyst Hemoperitoneum Female pelvic pain Nereida Simpson MD Procedures Case Request OR - Gynecologic Surg: Laparoscopy with evacuation of hemoperitoeum, possible left ovarian cystectomy vs. oophorectomy, removal of intrauterine device [address] [facility] 5th Floor [place], [place] [address] Referral ID Status Reason Start Date Expiration Date Visits V isits Requested Authorized [id number] Incomplete 10/13/2020 01/12/2022 1 1 Procedure/Equipment (Routine) - Incomplete Specialty Diagnoses / Procedures Referred By Contact Refer red To Contact Procedures Willy Serrano MD US Pelvic Complete W EV [address] [place], [place] [address] Referral ID Status Reason Start Date Expiration Date Visits V isits Requested Authorized [id number] Incomplete 10/13/2020 01/12/2022 1 1 Procedure/Equipment (Routine) - Incomplete Specialty Diagnoses / Procedures Referred By Contact Refer red To Contact Procedures Willy Serrano MD CT Angio Chest W IV Cont PE [address] Study [place] [id number] Referral ID Status Reason Start Date Expiration Date Visits V isits Requested Authorized [id number] Incomplete 10/13/2020 01/12/2022 1 1 Procedure/Equipment (Routine) - Incomplete Specialty Diagnoses / Procedures Referred By Contact Refer red To Contact Procedures Willy Serrano MD XR Portable Chest [address] [place] [id number] Referral ID Status Reason Start Date Expiration Date Visits V isits Requested Authorized [id number] Incomplete 10/13/2020 01/12/2022 1 1 Procedure/Equipment (Routine) - Incomplete Specialty Diagnoses / Procedures Referred By Contact Refer red To Contact Procedures Willy Serrano MD CT Abd Pelvis W IV Cont [address] Only [place] [id number] Referral ID Status Reason Start Date Expiration Date Visits V isits Requested Authorized [id number] Incomplete 10/13/2020 01/12/2022 1 1 Procedure/Equipment (Routine) - Incomplete Specialty Diagnoses / Procedures Referred By Contact Refer red To Contact Procedures Willy Serrano MD US Abd RUQ Organs [address] [place], [place] [address] Referral ID Status Reason Start Date Expiration Date Visits V isits Requested Authorized [id number] Incomplete 10/13/2020 01/12/2022 1 1 (Routine) - Closed Specialty Diagnoses / Procedures Referred By Contact Refer red To Contact Procedures Willy Serrano MD ECG 12 [address] [place], [place] [address] Referral ID Status Reason Start Date Expiration Date Visits Requ ested Visits Authorized [id number] Closed 10/13/2020 01/12/2022 1 1 Reason for Visit Reason Comments Abdominal Pain Auth/Cert Specialty Diagnoses / Procedures Referred By Contact Refer red To Contact Diagnoses Hemoperitoneum Female pelvic pain Hemorrhagic ovarian cyst History of tetralogy of Fallot Hemorrhagic ovarian cyst Hemoperitoneum Female pelvic pain History of tetralogy of Fallot Hemorrhagic ovarian cyst Hemoperitoneum Female pelvic pain History of tetralogy of Fallot Referral ID Status Reason Start Date Expiration Date Visits Requ ested Visits Authorized [id number] 1 1 Encounter Details Date Type Department Care Team Description 10/13/2020 Emergency [employer] Hari Serrano MD [address] [place], [place] [id number] Hemorrhagic ovarian cyst; Room Catracho, Nereida Hanks MD [address] [facility] [address] [place], [place] [phone] Hemoperitoneum; [address] Female pelvic pain; [place], [place] History of tetralogy of Fallot; [address] BMI 32.0-32.9,adult [phone] Social History Tobacco Use Types Packs/Day Years Used Date Smoking Tobacco: Never Sex Assigned at Date Recorded Female 10/26/2020 7:23 AM CDT documented as of this encounter Last Filed Vital Signs Vital Sign Reading Time Taken Comments Blood Pressure 95/75 10/13/2020 10:15 PM CDT Pulse 78 10/13/2020 10:30 PM CDT Temperature 36 ??C (96.8 ??F) 10/13/2020 9:15 PM CDT Respiratory Rate 18 10/13/2020 9:15 PM CDT Oxygen Saturation 98% 10/13/2020 10:30 PM CDT Inhaled Oxygen Concentration - - Weight - - Height - - Body Mass Index - - documented in this encounter Medications at Time of Discharge Medication Sig Dispensed Refills Start Date End Date acetaminophen (TYLENOL) Take 1-2 Tablets by 100 Tablet 11 09/202009/01/2021 325 MG tablet mouth every 6 hours as needed for Pain. ibuprofen (MOTRIN) 600 MG Take 1 Tablet by 40 Tablet 0 /09/202007/23/2021 tablet mouth every 6 hours as needed for Pain. oxyCODONE (ROXICODONE) 5 Take 1 Tablet by 10 Tablet 0 10/1310/27/2020 MG immediate release mouth every 6 hours tablet as needed for Pain. senna (SENNA LAXATIVE) Take 1 Tablet by 100 Tablet 0 021 10/27/2020 8.6 MG tablet mouth two times daily as needed for Constipation. documented as of this encounter Progress Notes Nereida Simpson MD - 10/13/2020 5:16 PM CDT Patient reports more pain and wishes to proceed with surgery now. We previously discussed surgery indetail (see H and P for details) and she has no further questions. Post-operative recovery was reviewed with her. Her partner's questions were also answered. Written consent was obtained. She will not have control once her IUD is removed. She will discuss control options at f/up and understands consideration should be given to other control options given her arcuate uterus. She willrtc 2 weeks after surgery with one of my partners as I am not back in the office until the end of November. She was cleared for surgery by the hospitalist, Dr. Tubbs. OR was called and the ED team wasupdated on plan of care. Lab Results Component Value Date Hemoglobin 11.5 (L) 10/13/2020 Hemoglobin 12.5 10/13/2020 Hemoglobin 14.9 07/08/2020 oral temperature is 36.9 ??C (98.4 ??F). Her blood pressure is 127/80 and her pulse is 66. Her respiration is 20 and oxygen saturation is 97%. Nereida Simpson MD 5:20 PM 10/13/2020 documented in this encounter Procedure Notes Nereida Simpson MD - 10/13/2020 8:28 PM CDT [facility] Brief Operative Progress Note Surgery Date: 10/13/2020 Surgeon(s) and Role: * Nereida Simpson MD - Primary * Rima Mendiola MD - Assisting Pre-op Diagnosis: * Hemorrhagic ovarian cyst [N83.209] * Hemoperitoneum [K66.1] * Female pelvic pain [R10.2] * BMI 32 * Malpositioned IUD * Arcuate uterus Post-op Diagnosis: * Hemorrhagic ovarian cyst [N83.209] * Hemoperitoneum [K66.1] * Female pelvic pain [R10.2] * BMI 32 * Malpositioned IUD Procedure(s) (LRB): Laparoscopy with evacuation of hemoperitoeum, left ovarian cystectomy, removal of intrauterine device (N/A) EBL: 5 cc Specimens: ID Type Source Tests Collected by Time Destination 1 : Left ovarian cyst Tissue Ovary, left SURGICAL PATHOLOGY Nereida Simpson MD 10/13/20202005 Complications: None Anesthesia: GET and local to skin Nereida Simpson MD Nereida Simpson MD - 10/13/2020 12:00 AM CDT NAME: JUANA SCHNEIDER COX BRANSON: [id number] OPERATIVE REPORT DATE OF SURGERY: 10/13/2020 : 1995 SURGEON: NEREIDA SIMPSON MD PREOPERATIVE DIAGNOSES: 1. Hemorrhagic ovarian cyst. 2. Hemoperitoneum. 3. Female pelvic pain. 4. Body mass index of 32. 5. Malpositioned intrauterine device. 6. 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 POSTOPERATIVE DIAGNOSES: 1. Hemorrhagic ovarian cyst. 2. Hemoperitoneum. 3. Female pelvic pain. 4. Body mass index of 32. 5. Malpositioned intrauterine device. COLD ROLLING MACHINE SETTER: Dr. Centeno (assistance was required for retraction and positioning, and no qualifiedresident was available). PROCEDURE: Laparoscopy with evacuation of hemoperitoneum, left ovarian cystectomy, removal of intrauterine device. ESTIMATED BLOOD LOSS: 5 mL. SPECIMEN: To Pathology: left ovarian cyst. COMPLICATIONS: None apparent. ANESTHESIA: General endotracheal and local to skin. INDICATIONS FOR PROCEDURE: The patient is a 24-year-old, para 0, who presented to the emergency department with pelvic and shoulder pain. Imaging studies were done, and it was discovered she had hemoperitoneum and a left ovarian cyst. Risks, benefits, and alternatives of expectant management versus the procedure as outlined in this dictation were reviewed with her, and written consent was obtained before she was taken to the operating room. Please see my history and physical for details. FINDINGS: At the time of pelvic exam, her IUD strings were seen protruding from the external cervical os, and the IUD was removed intact without difficulty. It was carefully inspected to make sure it was completely intact. At the time of laparoscopy, she had a bleeding left ovarian cyst with approximately 300 mL hemoperitoneum and clot. She also had some bleeding noted on the fimbriated end of her left fallopian tube. Hemostasis was achieved, and after her left ovarian cyst had been removed, she, otherwise, had normal-appearing ovaries bilaterally and fallopian tubes. Grossly normal appearing uterus which do not appear obviously arcuate in shape. Normal upper abdominal survey including liver and ga llbladder. She did have 1 small adhesion of her omentum to her left ovary which was cauterized with a Gyrus and transected. PROCEDURE IN DETAIL: The patient was taken to the operating room where she underwent general endotracheal anesthesia without difficulty. She was placed in [facility] and examined. She had a small mobile uterus with no palpable adnexal masses. She was prepped and draped in the normal sterile fashion. A speculum was placed in her vagina, and ring forceps were used to easily remove the IUD which was removed intact. A single-tooth tenaculum was placed on the anterior cervical lip, and a uterine manipulator was placed. The speculum was removed, and a catheter was placed in her bladder. I changed my gloves, and attention was turned to her abdomen where 0.25% Marcaine with Epinephrine was injectedinfraumbilically. A skin incision was made with the scalpel, and the Veress needle was inserted without difficulty. Correct intraperitoneal placement was confirmed via use of a fluid drop test. The patient's abdomen was insufflated with CO2 gas, and opening pressure was noted to be 3 mmHg. The Veress needle was removed, and a 5 mm trocar was inserted without difficulty. Careful survey of the patient's abdomen and pelvis revealed the above-noted findings. No evidence of damage to any intra-abdominal or pelvic organs upon entry. She was placed in Trendelenburg. Under direct visualization, 5 mm trocars were placed in the right and left lower quadrants after local anesthesia was injected into the skin. The patient's pelvis and abdomen were suction irrigated, and the hemoperitoneum was removed. She was found to have a large clot around her left ovary which was suctioned. After suctioning of the clot,she had active bleeding noted to be coming from a left ovarian cyst. This cyst was removed from the left ovary with blunt dissection, as well as with the Gyrus. Hemostasis was achieved at the left ovarian bed using Gyrus cautery. She did have a little bit of bleeding on her left fallopian tube near the fimbriated end, and gentle cautery was used to obtain hemostasis. She had one thin adhesion of her omentum to her left ovary, and this was cauterized with the Gyrus and cut. There was a bit of bleeding on the cut omental end after this adhesion was taken down, and Gyrus cautery was used well away from the bowel to obtain hemostasis. She had a tiny clear cystic lesion on the posterior aspect of the right side of her uterus. This was grasped with graspers and easily removed. It disintegrated upon removal. Hemostasis was achieved on the uterine serosa superficially after removal of this cystic area using Bovie cautery. The patient was placed in reverse Trendelenburg, and all the blood was suctioned free from her pelvis. Pelvis was irrigated and suctioned. Trendelenburg was once again established. Pn eumoperitoneum was allowed to escape from her abdomen, and hemostasis was observed at all pedicles. Pneumoperitoneum was re-established. No active bleeding noted. The laparoscope was removed, and pneumoperitoneum was released. She was given 5 deep breaths, and all 3 of the 5 mm trocars were removed. All skin incisions were closed with 4-0 Vicryl in a subcu fashion. Benzoin, followed by Steri-Strips and Band-Aids were placed on the incisions. Tejeda catheter was removed from her bladder. There was approximately 100 mL of clear urine in her Tejeda at the end of the procedure. A speculum was placed after the single-tooth tenaculum and uterine manipulator had been removed. Hemostasis was achieved at both tenaculum sites using silver nitrate sticks. Speculum was removed. The patient was brought to recovery room awake and in stable condition. No apparent complications. NEREIDA SIMPSON MD NMD/AQS /[id number] documented in this encounter Consult Notes Senait Tubbs MD - 10/13/2020 4:24 PM CDT Note dictated. OK to proceed with surgery. Recent cardiac MRI and monitor ( 26 days) unremarkable. Senait Tubbs MD 10/13/2020, 4:25 PM Senait Tubbs MD - 10/13/2020 12:00 AM CDT NAME: JUANA SCHNEIDER CSN: [id number] HOSPITAL CONSULTATION DATE OF CONSULTATION: 10/13/2020 : 1995 Consultation requested by for preop evaluation before possible surgery for ruptured ovarian cyst. 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 Otherwise no chronic medical issues. Admitted with nausea, vomiting, diarrhea, fevers, and subsequently severe umbilical pain. She took [id number]-[id number] remedies without any improvement. Subsequently, pain was localized in the right upper quadrant and right shoulder, 9/10, constant, worse with movements. Presented to the emergency room. CT angiogram negative for pulmonary embolus. CT of the abdomen and pelvis demonstrated small volume hemoperitoneum in the pelvis and right upper quadrant, likely due ruptured right ovarian cyst. Otherwise complete review of systems negative. PAST MEDICAL HISTORY: Tetralogy of Fallot, BMI of 32-33. SOCIAL HISTORY: She does not smoke. Does not drink alcohol. Very infrequent use of cannabis. No issues with anesthesia. No bleeding problems. No history of PE or DVT. 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 PHYSICAL EXAMINATION: BP 127/80 Pulse 66 Temp 36.9 ??C (98.4 ??F) (Oral) Resp 20 SpO2 97% No intake or output data in the 24 hours ending 10/13/20 1634 Gen: A/O x 3, NAD Eyes: normal conjunctivae, lids Ent: Normal symmetry, no trauma Neck: non-tender Respiratory: Normal to auscultation and palpation, good respiratory effort, no wheezes/crackles Cardiac: RRR, no peripheral edema GI: soft, non-distended, positive bowel sounds, no guarding or rebound, no HSMG, masses, RLQ pain MSK: Normal inspection and palpation Skin: No rash Neuro: No motor deficits Psych: Normal judgment, insight, memory, mood, affect LABORATORY DATA: Normal basic metabolic panel. WBC 5.9, hemoglobin 11.5, platelets 212. D-dimer 2.44. COVID-19 negative. Liver function tests normal. Albumin 3.8. Serum test negative. IMAGING: CT angio of the chest negative for PE. CT of the abdomen and pelvis. Asymmetric enlargement of the left ovary which contains 2 cystic lesions with small volume hemoperitoneum and to lesser extent right upper quadrant, likely secondary to ovarian cyst rupture. No other acute findings. Apparent low positioning of IUD. Right upper quadrant ultrasound unremarkable. Pelvic ultrasound: Hemorrhagic cyst of the left ovary. Complex fluid in the pelvis compatible with CT description of hemiperitoneum and malpositioned IUD. ASSESSMENT AND PLAN: A 24-year-old female, admitted with abdominal pain, ruptured left ovarian cyst. 1. Ruptured ovarian cyst with hemoperitoneum. Per DOOR [employer] SAL[employer]. Possible surgical intervention later today versus conservative treatment. Benign exam. Hemoglobin slightly lower at 11.5. 2. Tetralogy of Fallot. Stable cardiac status. Recent cardiac MRI demonstrated normal ejection fraction. No new significant abnormalities. She also recently had a quality assurance monitor final for 26 days. Mostly sinus rhythm with only 1 episode of VT (only 10 beats). Okay to proceed with surgery as planned. Low surgical risks. CODE STATUS: Full. DVT PROPHYLAXIS: Per surgery. SENAIT TUBBS MD JCK/AQS /[id number] documented in this encounter OR Notes H&P - Nereida Simpson MD - 10/13/2020 2:46 PM CDT GYNECOLOGIC HISTORY AND PHYSICAL Chief Complaint: Pelvic pain I was asked to see patient by Dr. Willy Serrano, ED physician. Subjective: HPI: Juana Schneider is a 24 y.o. P0 who has a mirena IUD in place since 04/23/2016 who presents to the ED after onset of pelvic pain yesterday. She states the pelvic pain started more on the right side yesterday, and tylenol did nothing to decrease the pain. She also tried tums and gas x for the discomfort as she thought is may be gas pain initially, but this did not alleviate the discomfort. Ibuprofen decreased the pain somewhat, but this morning she had right shoulder pain and increased pelvic discomfort that was 8-9/10 and stabbing in nature so she came to the ED. She has had some nausea, no emesis. Pain increases with laying down, decreases when standing. Shoulder pain and pelvic pain are much less now s/p pain meds in the ED. Pain is now 5/10. She had diarrhea once this am. No F/C or NS currently. She felt lightheaded this am. Last ate yesterday, but has had a cup of water in the ED in thelast one hour. Of note is that she had a GI bug with a fever to 101 many days ago which has since resolved. Patient reports she just finished home cardiac monitoring 2 days ago and that she needs to mail it back to [facility] for them to read it. She follows at [facility] as she is s/p tetrology of fallot repair at 10 months of age. 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 No concerns for stds now. She is in a monogamous relationship with her boyfriend for the last year. No abnormal vaginal discharge, itching or burning. She thinks she had an abnormal pap smear in April at an outside facility but is not sure what the follow up was supposed to be. She denies any h/o surgeries to her cervix. OB History She has never been . Patient Active Problem List Diagnosis ??? Cyst of left ovary ??? Female pelvic pain ??? Hemoperitoneum ??? Malpositioned IUD (HRC) ??? History of tetralogy of Fallot repair PMH: Tetrology of fallot Depression and anxiety in the past PSH: Tetrology of fallot surgery at 10 months of age Meds: multivitamin daily No Known Allergies Social History Tobacco Use ??? Smoking status: Never Smoker Substance Use Topics ??? Alcohol use: Not on file ??? Drug use: Not on file Objective: BP 127/80 Pulse 66 Temp 36.9 ??C (98.4 ??F) (Oral) Resp 20 SpO2 97% General: alert, cooperative, no distress, appears stated age Skin: Warm, dry without lesion Lungs: Clear to auscultation, breathing unlabored Heart: Regular rate and rhythm, systolic murmur 06/13 Abdomen: Obese, soft, tender with deep palpation in pelvis bilaterally, ND, no rebound or guarding Extremities: Nontender to palpation, no edema bilateral LE Lab Results Component Value Date WBC 5.9 10/13/2020 WBC 12.4 (H) 07/08/2020 RBC 4.25 10/13/2020 RBC 4.98 07/08/2020 Hemoglobin 11.5 (L) 10/13/2020 Hemoglobin 12.5 10/13/2020 Hemoglobin 14.9 07/08/2020 HCT 37.1 10/13/2020 HCT 44.5 07/08/2020 MCV 87.3 10/13/2020 MCV 89.4 07/08/2020 RDW 11.8 (L) 10/13/2020 RDW 11.8 (L) 07/08/2020 Platelets 212 10/13/2020 Platelets 268 07/08/2020 test: negative D-dimer: elevated to 2.44 Normal RUQ US CXR: normal Chest CT: no PE CT Abd/pelvis: 2 left ovarian cystic lesions, small volume hemoperitoneum in pelvis and RUQ, low positioning IUD. Kidneys were unremarkable. Pelvic US: IUD malpositioned in LUIS into the cervix, arcuate appearing uterus, 2.8 cm hemorrhagic left ovarian cyst, complex fluid pelvis compatible with hemoperitoneum A: 24 y.o. P0 with what appears to be a ruptured ovarian cyst with hemoperitoneum. She is clinicallyand hemodynamically stable at this time with minimal pain s/p meds in the ED. Patient also with probable arcuate uterus and malpositioned IUD. History of tetrology of fallot when she was 10 months old. Assessment: Juana Schneider Principal Problem: Female pelvic pain Active Problems: Cyst of left ovary Hemoperitoneum Malpositioned IUD (HRC) History of tetralogy of Fallot repair Arcuate uterus per US BMI 32 Plan: -I d/w patient r/b/a of expectant management versus surgical evaluation with evacuation of hemoperitoneum and possible ovarian cystectomy. She understands that if her hemoglobin remains stable and she is clinically and hemodynamically stable, that it is likely she is not having ongoing bleeding. She understands that the hemoperitoneum has most likely been causing her right shoulder pain as the blood irritates her diaphragm. We discussed that while hemoperitoneum will eventually resorb without intervention, that this can take days or weeks and that she will be uncomfortable until the hemoperitoneum has resolved. She last had a glass of water between 1:30 and 2:30 pm in the ED, and she is not certain she wants to have surgery. She agrees to be NPO now and will discuss options with her boyfriend. Patient was counseled on the risks, benefits and alternatives of laparoscopy with evacuation of hemoperitoneum, possible ovarian cystectomy vs. Oophorectomy and IUD removal. She was made aware that the risks include, but are not limited to: bleeding which may necessitate a blood transfusion, infection, injury to bowel, bladder, blood vessels, nerves, other pelvic and abdominal organs, and adjacent organs, , anesthesia, the low likelihood of malignancy and needing a second surgery by a urogynaecologist oncologist, and risk of needing a laparotomy. Her questions were answered. She understands that I would recommend we proceed with surgery if she has evidence of ongoing bleeding or becomes hemodynamically unstable. -I consulted the hospitalist team to see her to do a H and P and clear her for surgery given her h/otetrology of fallot repair. -Patient understands that her IUD is malpositioned and that it should be removed. It is not causing her any discomfort at this time. She understands she cannot count on it for control as it is inthe incorrect place. The iud can be removed if she goes to the operating room or at the time of f/upin clinic as she is doing well with the IUD in currently. I did not perform a speculum exam in the ED so the IUD was not removed in the ED. IUD may not be sitting well in her uterus given arcuate shapeand she should be counseled on other control options going forward. -Covid test was ordered and is pending -Repeat hemoglobin at 1830 and monitor patient closely -IV pain meds and IVF while the patient is NPO. -Urine gc/chlam was ordered -Patient agrees with plan of care and her questions were answered. Nereida Simpson MD 2:46 PM 10/13/2020 documented in this encounter ED Notes Willy Serrano MD - 10/13/2020 8:03 AM CDT Chief Complaint: Abdominal pain HPI: Juana Schneider is a 24 y.o. female with a history of TOF who presents to the ED for evaluation of abdominal pain. The patient reports she was having nausea, vomiting, diarrhea, and a fever of 101 several days ago, which seemed to resolve. Yesterday, she was feeling better, so she and her boyfriend went out to eat. About one hour after eating, the patient reports she developed abdominal pain localized to her umbilicus. She tried taking TUMS, Ibuprofen, and her Gas-X with no alleviation of the pain.The pain then spread into her lower abdomen and is now focused in the right upper quadrant and the right shoulder. She describes the pain as stabbing and 8-9/10 in severity. Pain is alleviated when sheis sitting or standing, but worsened by laying. The patient also reports mild nausea this morning with some dizziness and blurred vision. She states she is unable to take a deep breath, secondary to the pain. She denies any vomiting, but does note her bowel movement this morning was yellow and wateryand smelled like vomit. Of note, patient's LMP was approximately two weeks ago. Review of Systems Constitutional: Positive for fever (few days ago, up to 101, currently resolved). Eyes: Positive for visual disturbance (blurred vision with pain this morning). Gastrointestinal: Positive for abdominal distention, abdominal pain, diarrhea (yellow, watery, smelled like vomit) and nausea. Negative for vomiting. Musculoskeletal: Positive for right shoulder pain. Neurological: Positive for dizziness (with pain this AM). All other systems reviewed and are negative. Allergies: The patient denies any known allergies. Medications: levonorgestreL (MIRENA) 20 mcg/24 hours (6 yrs) 52 mg IUD Medical History: Tetralogy of Fallot LORNA Depression Heart murmur Surgical History: Cardiac valve surgery, TOF repair Family History: Arthritis Social History: The patient resides with her boyfriend. Vital Signs: Triage Vitals [10/13/20 0752] Temp 36.9 ??C (98.4 ??F) Temp src Oral Pulse 72 Resp 20 BP 125/77 SpO2 98 % Physical Exam HENT: Normal phonation. Neck: Trachea midline. Eyes: EOM's grossly intact. CV: Regular rate and rhythm. 2/6 systolic murmur Resp: Clear to auscultation bilaterally. Abdomen: Nondistended. Tender on palpation with voluntary guarding, worse in the right upper quadrant but also present in the left lower quadrant. Extremities/MSK: No deformities. Neuro: Alert and conversant. Moving all four extremities appropriately. Skin: Warm and dry. ECG: ECG Results ECG 12 Lead (Final result) Collection Time Result Time Ventricular Rate Atrial Rate P-R Interval QRS Duration QT QTc P Laguna R Laguna T Laguna 10/13/20 08:19:50 10/13/20 12:25:06 60 60 180 136 438 438 11 39 21 Final result Narrative: Sinus rhythm Right bundle branch block Abnormal ECG When compared with ECG of 08-JUL-2020 14:40, No significant change was found Confirmed by SILVA SERRANO ([id number]) on 10/13/2020 12:25:04 PM Imaging: Results per radiology. Please see formal Radiology read for further details. US Abd RUQ Organs IMPRESSION: Unremarkable right upper quadrant ultrasound. CT Abd Pelvis W IV Cont Only IMPRESSION: ?? 1. Asymmetric enlargement of the left ovary which contains two cystic lesions. Recommend pelvic ultrasound for further evaluation. 2. Small-volume hemoperitoneum in the pelvis and to a lesser extent the right upper quadrant. This is favored to be secondary to ovarian cyst rupture. No other source of pneumoperitoneum is identified. 3. No other acute findings in the abdomen or pelvis. 4. Apparent low positioning of the IUD. Recommend attention on follow-up pelvic ultrasound. CT Angio Chest W IV Cont PE Study IMPRESSION: No evidence of a pulmonary embolus or other acute thoracic findings. XR Portable Chest 1 View FINDINGS: ??One view was obtained. ??The lungs are clear. ??Heart size and pulmonary vascularity arewithin normal limits. ??There is no evidence of pneumothorax or pleural effusion. ??No acute infiltrates are identified. US Pelvis Complete W EV IMPRESSION: 1. Malpositioned IUD. 2. Hemorrhagic cyst left ovary. 3. Complex fluid pelvis compatible with the CT description of hemoperitoneum. Laboratory: CBC w/ Diff: RDW 11.8 (L), o/w WNL (WBC 5.9, HGB 12.5, PLT 212) BMP: WNL (Creat 0.80) Hepatic Function Panel: WNL HCG: Negative D Dimer: 2.24 (high) Lipase: 16 (WNL) Type and Screen: Pending Blood Type 2nd Draw: Pending Hemoglobin: 11.5 (L) COVID: Pending ED Course: Reviewed: I reviewed the patient's past medical history, previous medical charts and nursing notes. Assessments / Reassessments: 0810 I performed initial history and physical exam of the patient. Consultations: 1400 I spoke with the on-call [employer] [facility], Dr Nereida Simpson. Interventions: 0827 Sodium chloride bolus 1,000 mL IV 0840 Dilaudid 0.5 mg IV 1026 Toradol 15 mg IV 1347 Dilaudid 0.5 mg IV Disposition: Admitted to [employer] [employer] [facility] service for observation. I discussed case with the admitting physician. Last EC Vitals: Temp: 36.9 ??C (98.4 ??F) (10/13 075) Temp src: Oral (10/14 751) Pulse: 66 (10/13 1430) Resp: 20 (10/13 0752) BP: 127/80 (10/13 1430) SpO2: 97 % (10/13 1430) Impression and Plan: Juana Schneider is a 24 y.o. female presenting for evaluation of abdominal pain. Pain was mostly localized to the right upper quadrant, though she did have tenderness in the left lower quadrant on palpation. Given her right shoulder pain that was associated with this, I had a suspicion for hepatobiliary pathology, specifically acute cholecystis versus symptomatic cholelithiasis. Initial labs were reassuring including LFT's and lipase. We started with the RUQ ultrasound which was within normal limits without evidence of gallstones. Given she was endorsing some right sided chest pain, chest X-ray was obtained which was clear without evidence of acute cardio or pulmonary process. Patient does have an IUD in place, therefore D dimer was obtained which was markedly elevated at 2.44. CTA of the chest was obtained along with CT of the abdomen and pelvis given the patient was fractionating still operator on my reassessment despite dilaudid. CTA of the chest was negative for PE, but CT of the abdomen and pelvis did show evidence of hemoperitoneum tracking up into the RUQ. Likely source was a ruptured hemorrhagic ovarian cyst. This was confirmed on pelvic ultrasound. Patient was noted to have a drop in her hemoglobinof roughly 2.5 over the past 3 months. I do feel this is likely more acute given her clinical history. I spoke with on-call [employer]NAGER. We will plan to admit the patient for observation, repeat abdominal exams, and serial hemoglobins. Patient is comfortable with this plan. She was given an additional dilaudid prior to admission and will remain NPO. Juana Schneider was evaluated during a global COVID-19 pandemic, which necessitated consideration that the patient might be at risk for infection with the SARS-CoV-2 virus that causes COVID-19. Applicable protocols for evaluation were followed during the patient's care. COVID-19 was considered as part of the patient's evaluation. The plan for testing is: a test was obtained during this visit. Diagnosis: Final diagnoses: [N83.209] Hemorrhagic ovarian cyst [K66.1] Hemoperitoneum [employer] Makayla Buckley, am serving as a scribe at 8:15 AM to document services personally performed by Willy Serrano MD, based on my observations and the provider's statements to me. 10/13/2020 [facility] Portions of this medical record were completed by a scribe. UPON MY REVIEW AND AUTHENTICATION BY ELECTRONIC SIGNATURE, this confirms (a) I performed the applicable clinical services, and (b) the recordis accurate. Willy Serrano MD 10/13/20 1515 documented in this encounter Plan of Treatment Not on filedocumented as of this encounter Procedures Procedure Name Priority Date/Time Associated Diagnosis Comme nts CHLAMYDIA & GC, URINE STAT 10/13/2020 9:28 PM Results for this (14 YEARS AND OLDER) CDT procedu re are in the results section. HEMOGLOBIN, BLOOD STAT 10/13/2020 9:16 PM Resu lts for this CDT procedure are i n the results section. SURGICAL PATHOLOGY Routine 10/13/2020 8:06 PM Hemorrhagic ovar anderson Results for this CDT cyst procedure are in Hemoperitoneum the results Female pelvic pain section. PELVISCOPY 10/13/2020 6:27 PM Hemorrhagic ovarian CDT cyst Hemoperitoneum Female pelvic pain BT SECOND DRAW STAT 10/13/2020 3:37 PM Results for this CDT procedure are i n the results section. TYPE AND SCREEN STAT 10/13/2020 2:12 PM Result s for this CDT procedure are i n the results section. ANTIBODY SCREEN STAT 10/13/2020 2:12 PM Result s for this CDT procedure are i n the results section. BLOOD TYPE STAT 10/13/2020 2:12 PM Results f or this CDT procedure are i n the results section. HEMOGLOBIN, BLOOD STAT 10/13/2020 2:12 PM Resu lts for this CDT procedure are i n the results section. 2019 NOVEL STAT 10/13/2020 2:05 PM Results f or this CORONAVIRUS CDT procedure are i n the results section. US PELVIC COMPLETE W STAT 10/13/2020 1:03 PM R esults for this EV CDT procedure are i n the results section. CT ANGIO CHEST W IV STAT 10/13/2020 11:17 Resu lts for this CONT PE STUDY AM CDT procedure are in the results section. CT ABD PELVIS W IV STAT 10/13/2020 11:09 Resul ts for this CONT ONLY AM CDT procedure are i n the results section. D DIMER, QUANTITATIVE STAT 10/13/2020 10:29 Re sults for this AM CDT procedure are i n the results section. XR PORTABLE CHEST 1 STAT 10/13/2020 10:24 Resu lts for this VIEW AM CDT procedure are i n the results section. US ABD RUQ ORGANS STAT 10/13/2020 9:09 AM Resu lts for this CDT procedure are i n the results section. CBC AND DIFFERENTIAL STAT 10/13/2020 8:26 AM R esults for this PANEL CDT procedure are i n the results section. COMPLETE BLOOD STAT 10/13/2020 8:26 AM Results for this COUNT-W/DIFF CDT procedure are i n the results section. LIVER PANEL(HEPATIC STAT 10/13/2020 8:26 AM Re sults for this FUNCTION PANEL) CDT procedure ar e in the results section. BASIC METABOLIC PANEL STAT 10/13/2020 8:26 AM Results for this CDT procedure are i n the results section. HCG,QUALITATIVE, STAT 10/13/2020 8:26 AM Resul ts for this SERUM CDT procedure ar e in the results section. LIPASE STAT 10/13/2020 8:26 AM Results f or this CDT procedure are i n the results section. ECG 12 LEAD INPATIENT STAT 10/13/2020 8:19 AM Results for this CDT procedure are i n the results section. documented in this encounter Results Chlamydia and GC, Urine STD (10/13/2020 9:28 PM CDT) [facility] Method Time Signature Chlamydia Not Not 10/14/2020 [facility] Trachomatis Detected Detected 2:01 PM CDT CENTRAL LAB STD N. gonorrhoeae Not Not 10/14/2020 [facility] STD Detected Detected 2:01 PM CDT CENTRAL LAB Specimen Anatomical Collection Method Collection Time Receive d Time (Source) Location / / Volume Laterality Urine STD (Urine Non-blood 10/13/2020 9:28 PM 10/13 9:31 for STD) Collection / CDT PM CDT Unknown Narrative [facility] CENTRAL [facility] - 10/14/2020 2:01 PM CDT Test performed by Utility Maintenance Worker Mediated Amplification (TMA). Urine Volume submitted was greater than 30 ml. Excess collection volume may decrease test sensitivity. Nereida Simpson MD LAB_1 Performing Organization Address City/State/ZIP Code Phon e Number [facility] [address] [place] [id number] (ABNORMAL) Hemoglobin (10/13/2020 9:16 PM CDT) P athologist Signature Hemoglobin 10.9 (L) 12.0 - 10/13/2020 [facility] 15.5 g/dL 9:24 PM CDT LABORATORY Specimen Anatomical Collection Method / Collection Time Recei terra Time (Source) Location / Volume Laterality Blood Venipuncture / 10/13/2020 9:16 10/13/2020 9:21 Unknown PM CDT PM CDT Nereida Simpson MD LAB_1 Performing Organization Address City/State/ZIP Code Phon e Number [facility] [address] [place] [address] Surgical Path (10/13/2020 8:06 PM CDT) Component Value Ref Test Analysis Performed At Patholo gist Range Method Time Signature Case Report Surgical Pathology ?Case: [id number] ? 10/15/2020 [facility] Authorizing Provider: ??Nereida Simpson MD ? Collected: ? 10/13/20202005 ? 10:16 AM LABO RATORY Ordering Location: ? [facility] ?? Received: ?10/14/2020 0558 ? CDT Pathologist: ? Guilherme Garcia MD ? Specimen: ?Ovary, left, Left ovarian cyst ? FINAL A. Ovary, left, cystectomy: 10/15/2020 [facility] Electronically DIAGNOSIS Hemorrhagic corpus luteum cyst 10:16 AM LABORATORY signed by CDT Cesar Garcia MD on 10/15/2020 a t 10:16 AM Clinical Hemorrhagic ovarian cyst 10/15/2020 [facility] Information Hemoperitoneum 10:16 AM LABORATORY Female pelvic pain CDT Microscopic Microscopic 10/15/2020 [facility] Description examination is 10:16 AM LABORATORY performed. CDT Gross A: 10/15/2020 [facility] Description The specimen is received in formalin and labeled with the patient's name and Ovary, left, Left ovarian cyst . The specimen consists of multiple hess-pink membranous soft tissue fragments consistent wi 10:16 AM LABORATORY th cyst wall aggregating 2 x 1.5 x 0.3 cm. The specimen is filtered and entirely submitted in 1 cassette. DJ CDT Embedded 10/15/2020 [facility] Images 10:16 AM LABORATORY CDT Specimen Anatomical Collection Method Collection Time Receive d Time (Source) Location / / Volume Laterality Tissue STRUCTURE OF LEFT 10/13/2020 8:06 PM 07/0 10/2020 5:58 OVARY / Unknown CDT AM CDT Nereida Simpson MD LAB PATHOLOGY Performing Organization Address City/State/ZIP Code Phon e Number [facility] [address] [place] [address] Blood Type second draw (10/13/2020 3:37 PM CDT) P athologist Signature ABO O 10/13/2020 [facility] 4:02 PM CDT BLOOD BANK RH Positive 10/13/2020 [facility] 4:02 PM CDT BLOOD BANK Specimen Anatomical Collection Method / Collection Time Recei terra Time (Source) Location / Volume Laterality Blood Venipuncture / 10/13/2020 3:37 10/13/2020 3:43 Unknown PM CDT PM CDT Willy Serrano MD LAB_1 Performing Organization Address [facility] Phon e Number [facility] [address] [place] [address] (ABNORMAL) Hemoglobin, Blood (10/13/2020 2:12 PM CDT) P athologist Signature Hemoglobin 11.5 (L) 12.0 - 10/13/2020 [facility] 15.5 g/dL 2:21 PM CDT LABORATORY Specimen Anatomical Collection Method / Collection Time Recei terra Time (Source) Location / Volume Laterality Blood Venipuncture / 10/13/2020 2:12 10/13/2020 2:18 Unknown PM CDT PM CDT Nereida Simpson MD LAB_1 Performing Organization Address [facility] Phon e Number [facility] [address] [place] [phone] Antibody Screen (10/13/2020 2:12 PM CDT) [facility] Method Time Signature Antibody Screen Negative 10/13/2020 [facility] Interpretation 3:36 PM CDT BLOOD BANK Specimen Anatomical Collection Method / Collection Time Recei terra Time (Source) Location / Volume Laterality Blood Venipuncture / 10/13/2020 2:12 10/13/2020 2:18 Unknown PM CDT PM CDT Nereida Simpson MD LAB_1 Performing Organization Address [facility] Phon e Number [facility] [address] [place] [address] Blood Type (10/13/2020 2:12 PM CDT) P athologist Signature ABO O 10/13/2020 [facility] 3:32 PM CDT BLOOD BANK RH Positive 10/13/2020 [facility] 3:32 PM CDT BLOOD BANK Specimen Anatomical Collection Method / Collection Time Recei terra Time (Source) Location / Volume Laterality Blood Venipuncture / 10/13/2020 2:12 10/13/2020 2:18 Unknown PM CDT PM CDT Nereida Simpson MD LAB_1 Performing Organization Address City/[facility] Phon e Number [facility] [address] [place] [address] COVID-19 (RAPID)- emergent pre-op or AGP - one time (10/13/2020 2:05 PM CDT) [facility] Method Time Signature COVID-19 Not Detected Not 10/13/2020 [facility] Interpretation Detected 3:33 PM LABORATORY CDT Source Nasopharyngeal 10/13/2020 [facility] swab 3:33 PM LABORATORY CDT Specimen Anatomical Collection Method Collection Time Receive d Time (Source) Location / / Volume Laterality Swab (Source Non-blood 10/13/2020 2:05 PM 2:27 Required) Collection / CDT PM CDT (Nasopharyngeal Unknown swab) Narrative [facility] - 10/13/2020 3:33 P M CDT Test performed by real-time PCR. This test has been authorized by the FDA under an Emergency Use Authorization (EUA) for use by authorized laboratories. Nereida Simpson MD LAB_1 Performing Organization Address City/State/ZIP Code Phon e Number [facility] [address] [place] [address] [place] Pelvic Complete W EV (10/13/2020 1:03 PM CDT) Anatomical Region Laterality Modality Pelvis Ultrasound Specimen (Source) Anatomical Collection Method Collection Time Re ceived Time Location / / Volume Laterality 10/13/2020 12:28 PM CDT Impressions 10/13/2020 1:17 PM CDT COMPARISON: ??CT abdomen and pelvis same day. TECHNIQUE: ??Transabdominal and transvag inal imaging was performed. FINDINGS: ?? Uterus: Measures 9.1 x 3.3 x 5.4 cm. IUD appears at the lower uterine segment extending into the cervix, malpositioned. Arcuate appearance. Endometrium: Measures up to 0.5 cm in th ickness. ?? Right Ovary: Measures 5.1 x 2.0 x 1.8 cm and appears unremarkable Right Ovary Blood Flow: Present. Left Ovary: Measures 7.1 x 2.3 x 4.1 cm and small hemorrhagic cyst noted within the ovary with a fluid/fluid level. And measures 2.8 x 2.4 x 2.1 cm. Left Ovary Blood Flow: Present. Free Fluid: yes, complex. IMPRESSION: 1. Malpositioned IUD. 2. Hemorrhagic cyst left ovary. 3. Complex fluid pelvis compatible with the CT description of hemoperitoneum. Procedure Note Stephan Bustamante MD - 10/13/2020Forma tting of this note might be different from the original. IMPRESSION COMPARISON: CT abdomen and pelvis same d ay. TECHNIQUE: Transabdominal and transvagin al imaging was performed. FINDINGS: Uterus: Measures 9.1 x 3.3 x 5.4 cm. IUD appears at the lower uterine segment extending into the cervix, malpositioned. Arcuate appearance. Endometrium: Measures up to 0.5 cm in th ickness. Right Ovary: Measures 5.1 x 2.0 x 1.8 cm and appears unremarkable Right Ovary Blood Flow: Present. Left Ovary: Measures 7.1 x 2.3 x 4.1 cm and small hemorrhagic cyst noted within the ovary with a fluid/fluid level. And measures 2.8 x 2.4 x 2.1 cm. Left Ovary Blood Flow: Present. Free Fluid: yes, complex. IMPRESSION: 1. Malpositioned IUD. 2. Hemorrhagic cyst left ovary. 3. Complex fluid pelvis compatible with the CT description of hemoperitoneum. Willy Serrano MD RAD US CT Angio Chest W IV Cont PE Study (10/13/2020 11:17 AM CDT) Anatomical Region Laterality Modality Chest, Lung, Vascular Computed Tomograph y Specimen (Source) Anatomical Collection Method Collection Time Re ceived Time Location / / Volume Laterality 10/13/2020 11:15 AM CDT Impressions 10/13/2020 11:40 AM CDT COMPARISON: None TECHNIQUE: Images were obtained through the chest following the administration of 73 mL IOPAMIDOL 76 % IV SOLN IV contrast using a pulmonary embolus protocol. FINDINGS: DIAGNOSTIC QUALITY: Adequate contrast shiva luis, mildly degraded by motion artifact in the left lung. ACUTE PULMONARY EMBOLISM: None. RIGHT HEART STRAIN: None. CHEST WALL AND LOWER NECK: Unremarkable. LYMPHADENOPATHY: No mediastinal, hilar o r axillary adenopathy. CARDIOMEDIASTINUM: Right-sided aortic ar ch. Otherwise unremarkable. VISUALIZED UPPER ABDOMEN: Unremarkable. PLEURA/ PLEURAL EFFUSION: Unremarkable. No pleural effusion. BONES: Unremarkable. LUNG AND LARGE AIRWAYS: Unremarkable. IMPRESSION: No evidence of a pulmonary e mbolus or other acute thoracic findings. Procedure Note Matheus Kebede MD - 10/13/2020Fo rmatting of this note might be different from the original. IMPRESSION COMPARISON: None TECHNIQUE: Images were obtained through the chest following the administration of 73 mL IOPAMIDOL 76 % IV SOLN IV contrast using a pulmonary embolus protocol. FINDINGS: DIAGNOSTIC QUALITY: Adequate contrast shiva luis, mildly degraded by motion artifact in the left lung. ACUTE PULMONARY EMBOLISM: None. RIGHT HEART STRAIN: None. CHEST WALL AND LOWER NECK: Unremarkable. LYMPHADENOPATHY: No mediastinal, hilar o r axillary adenopathy. CARDIOMEDIASTINUM: Right-sided aortic ar ch. Otherwise unremarkable. VISUALIZED UPPER ABDOMEN: Unremarkable. PLEURA/ PLEURAL EFFUSION: Unremarkable. No pleural effusion. BONES: Unremarkable. LUNG AND LARGE AIRWAYS: Unremarkable. IMPRESSION: No evidence of a pulmonary e mbolus or other acute thoracic findings. Willy Serrano MD RAD CT CT Abd Pelvis W IV Cont Only (10/13/2020 11:09 AM CDT) Anatomical Region Laterality Modality Abdomen, Pelvis Computed Tomography Specimen (Source) Anatomical Collection Method Collection Time Re ceived Time Location / / Volume Laterality 10/13/2020 10:56 AM CDT Impressions 10/13/2020 11:32 AM CDT COMPARISON: ??None. TECHNIQUE: ??Images were obtained throug h the abdomen and pelvis following the administration of 100 mL IOPAMIDOL 61 % IV SOLN contrast. FINDINGS: LUNG BASES: Unremarkable. LIVER: Unremarkable. GALLBLADDER AND BILIARY TREE: Unremarkab le. No intrahepatic or extrahepatic biliary ductal dilation. PANCREAS: Unremarkable. SPLEEN: Unremarkable. ADRENALS: Unremarkable. KIDNEYS AND URETERS: Unremarkable. No hy dronephrosis. VESSELS: No abdominal aortic aneurysm. BOWEL:Unremarkable. No inflammatory jackson ges or obstruction. Normal appendix BLADDER: Unremarkable. REPRODUCTIVE ORGANS: An IUD is noted in the uterus and appears be positional low, within the lower uterine segment and cervix. The left arm of the IUD also appears to extend into the myometrium. There i s asymmetric enlargement of the left ova ry which contains cystic lesions measuring 2.6 and 3.1 cm, respectively. MESENTERY/PERITONEUM: There is a small v olume of hemoperitoneum in the pelvis and to a lesser extent the right upper quadrant. There is no free air. There are no loculated fluid collections. There is no mesenteric lymphadenopathy. RETROPERITONEUM: No adenopathy. ABDOMINAL WALL/SOFT TISSUES: Unremarkabl e. BONES: No suspicious osseous lesion or e vidence of acute fracture. 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 IMPRESSION: ?? 1. Asymmetric enlargement of the left ov delmar which contains two cystic lesions. Recommend pelvic ultrasound for further evaluation. 2. Small-volume hemoperitoneum in the pe lvis and to a lesser extent the right upper quadrant. This is favored to be secondary to ovarian cyst rupture. No other source of pneumoperitoneum is identified. 3. No other acute findings in the abdome n or pelvis. 4. Apparent low positioning of the IUD. Recommend attention on follow-up pelvic ultrasound. Findings discussed with Dr. Serrano on 09/2020 at 11:30 AM. Procedure Note Matheus Kebede MD - 10/13/2020Fo rmatting of this note might be different from the original. IMPRESSION COMPARISON: None. TECHNIQUE: Images were obtained through the abdomen and pelvis following the administration of 100 mL IOPAMIDOL 61 % IV SOLN contrast. FINDINGS: LUNG BASES: Unremarkable. LIVER: Unremarkable. GALLBLADDER AND BILIARY TREE: Unremarkab le. No intrahepatic or extrahepatic biliary ductal dilation. PANCREAS: Unremarkable. SPLEEN: Unremarkable. ADRENALS: Unremarkable. KIDNEYS AND URETERS: Unremarkable. No hy dronephrosis. VESSELS: No abdominal aortic aneurysm. BOWEL:Unremarkable. No inflammatory jackson ges or obstruction. Normal appendix BLADDER: Unremarkable. REPRODUCTIVE ORGANS: An IUD is noted in the uterus and appears be positional low, within the lower uterine segment and cervix. The left arm of the IUD also appears to extend into the myometrium. There is asymmetric enlargement of the left ovary which cont ains cystic lesions measuring 2.6 and 3.1 cm, respectively. MESENTERY/PERITONEUM: There is a small v olume of hemoperitoneum in the pelvis and to a lesser extent the right upper quadrant. There is no free air. There are no loculated fluid collections. There is no mesenteric lymphadenopathy. RETROPERITONEUM: No adenopathy. ABDOMINAL WALL/SOFT TISSUES: Unremarkabl e. BONES: No suspicious osseous lesion or e vidence of acute fracture. 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 IMPRESSION: 1. Asymmetric enlargement of the left ov delmar which contains two cystic lesions. Recommend pelvic ultrasound for further evaluation. 2. Small-volume hemoperitoneum in the pe lvis and to a lesser extent the right upper quadrant. This is favored to be secondary to ovarian cyst rupture. No other source of pneumoperitoneum is identified. 3. No other acute findings in the abdome n or pelvis. 4. Apparent low positioning of the IUD. Recommend attention on follow-up pelvic ultrasound. Findings discussed with Dr. Serrano on 09/2020 at 11:30 AM. Willy Serrano MD RAD CT (ABNORMAL) D Dimer, Quantitative (10/13/2020 10:29 AM CDT) Analysis Performed At Patho logist Time Signature D Dimer, Quant 2.44 (H) <=0.50 10/13/2020 [facility] ug/mL FEU 10:47 AM CDT LABORATORY Specimen Anatomical Collection Method / Collection Time Recei terra Time (Source) Location / Volume Laterality Blood Venipuncture / 10/13/2020 10:29 Unknown AM CDT 10:32 AM CDT Narrative [facility] - 10/13/2020 10:47 AM CDT A D-dimer level <=0.50 ug/mL FEU in [...] anticoagula tion therapy and increasing clot age. Willy Serrano MD LAB_1 Performing Organization Address City/State/ZIP Code Phon e Number [facility] [address] [place] [address] XR Portable Chest 1 View (10/13/2020 10:24 AM CDT) Anatomical Region Laterality Modality Chest, Lung Computed Radiography Specimen (Source) Anatomical Collection Method Collection Time Re ceived Time Location / / Volume Laterality 10/13/2020 10:19 AM CDT Impressions 10/13/2020 10:28 AM CDT COMPARISON: ??07/08/2020 FINDINGS: ??One view was obtained. ??The lungs are clear. ??Heart size and pulmonary vascularity are within normal limits. ??There is no evidence of pneumothorax or pleural effusion. ??No acute infiltrates are identified. Procedure Note Matheus Kebede MD - 10/13/2020Fo rmatting of this note might be different from the original. IMPRESSION COMPARISON: 07/08/2020 FINDINGS: One view was obtained. The delphine gs are clear. Heart size and pulmonary vascularity are within normal limits. There is no evidence of pneumothorax or pleural effusion. No acute infiltrates are identified. Willy Serrano MD RAD PORTABLE US Abd RUQ Organs (10/13/2020 9:09 AM CDT) Anatomical Region Laterality Modality Abdomen Ultrasound Specimen (Source) Anatomical Collection Method Collection Time Re ceived Time Location / / Volume Laterality 10/13/2020 8:47 AM CDT Impressions 10/13/2020 9:14 AM CDT COMPARISON: ??None. FINDINGS: ?? Pancreas: Partially obscured but visuali zed portions are unremarkable. Liver: Contour appears unremarkable. Par enchyma appears unremarkable. Gallbladder: No stones, sludge, wall thi ckening, or pericholecystic fluid. Sonographic Salgado's Sign: Unable to be assessed. CBD: 0.3 cm. Right Kidney: Measures 13.4 x 4.6 x 4.5 cm. Appears unremarkable. Ascites: None. IMPRESSION: Unremarkable right upper josue drant ultrasound. Procedure Note Matheus Kebede MD - 10/13/2020Fo rmatting of this note might be different from the original. IMPRESSION COMPARISON: None. FINDINGS: Pancreas: Partially obscured but visuali zed portions are unremarkable. Liver: Contour appears unremarkable. Par enchyma appears unremarkable. Gallbladder: No stones, sludge, wall thi ckening, or pericholecystic fluid. Sonographic Salgado's Sign: Unable to be assessed. CBD: 0.3 cm. Right Kidney: Measures 13.4 x 4.6 x 4.5 cm. Appears unremarkable. Ascites: None. IMPRESSION: Unremarkable right upper josue drant ultrasound. Willy Serrano MD RAD US (ABNORMAL) Complete Blood Count-W/Diff (10/13/2020 8:26 AM CDT) [facility] Method Time Signature WBC 5.9 3.5 - 10.5 10/13/2020 [facility] x10(9)/L 8:38 AM CDT LABORATORY RBC 4.25 3.90 - 10/13/2020 [facility] 5.03 8:38 AM CDT LABORATORY x10(12)/L Hemoglobin 12.5 12.0 - 10/13/2020 [facility] 15.5 g/dL 8:38 AM CDT LABORATORY HCT 37.1 34.9 - 10/13/2020 [facility] 44.5 % 8:38 AM CDT LABORATORY MCV 87.3 80.0 - 10/13/2020 [facility] 100.0 fL 8:38 AM CDT LABORATORY MCH 29.4 27.6 - 10/13/2020 [facility] 33.3 pg 8:38 AM CDT LABORATORY MCHC 33.7 31.5 - 10/13/2020 [facility] 35.2 g/dL 8:38 AM CDT LABORATORY RDW 11.8 (L) 11.9 - 10/13/2020 [facility] 15.5 % 8:38 AM CDT LABORATORY Platelets 212 150 - 450 10/13/2020 [facility] x10(9)/L 8:38 AM CDT LABORATORY Automated NRBC 0 <=0 /100 10/13/2020 [facility] WBC 8:38 AM CDT LABORATORY Neutrophil 3.4 1.7 - 7.0 10/13/2020 [facility] Absolute 10(9)/L 8:38 AM CDT LABORATORY Lymphocyte 2.0 1.0 - 4.8 10/13/2020 [facility] Absolute 10(9)/L 8:38 AM CDT LABORATORY Monocytes 0.4 0.2 - 0.9 10/13/2020 [facility] Absolute 10(9)/L 8:38 AM CDT LABORATORY Eosinophil 0.1 0.0 - 0.5 10/13/2020 [facility] Absolute 10(9)/L 8:38 AM CDT LABORATORY Basophil 0.0 0.0 - 0.3 10/13/2020 [facility] Absolute 10(9)/L 8:38 AM CDT LABORATORY Immature Gran % 0.2 0.0 - 0.5 10/13/2020 [facility] % 8:38 AM CDT LABORATORY Specimen Anatomical Collection Method / Collection Time Recei terra Time (Source) Location / Volume Laterality Blood Venipuncture / 10/13/2020 8:26 10/13/2020 8:32 Unknown AM CDT AM CDT Willy Serrano MD LAB_1 Performing Organization Address City/[facility]/ZIP [facility] [place] Number [facility] [address] [place] [id number] HCG, QUALitative, Serum (10/13/2020 8:26 AM CDT) Analysis Performed At Patho logist Time Signature HCG, Serum Negative Negative 10/13/2020 [facility] Qual 9:02 AM CDT LABORATORY Specimen Anatomical Collection Method / Collection Time Recei terra Time (Source) Location / Volume Laterality Blood Venipuncture / 10/13/2020 8:26 10/13/2020 8:32 Unknown AM CDT AM CDT Willy Serrano MD LAB_1 Performing Organization Address City/[facility] Phon e Number [facility] [address] [place] [address] Liver Panel (Hepatic Function Panel) (10/13/2020 8:26 AM CDT) P athologist Signature Alkaline 50 40 - 150 10/13/2020 [facility] Phosphatase U/L 9:02 AM CDT LABORATORY Bilirubin, Total 0.4 0.2 - 1.2 10/13/2020 [facility] mg/dL 9:02 AM CDT LABORATORY Bilirubin, 0.2 0.0 - 0.5 10/13/2020 [facility] Direct mg/dL 9:02 AM CDT LABORATORY AST (SGOT) 17 10 - 40 10/13/2020 [facility] U/L 9:02 AM CDT LABORATORY ALT (SGPT) 13 0 - 55 U/L 10/13/2020 [facility] 9:02 AM CDT LABORATORY Protein, Total 7.1 6.4 - 8.3 10/13/2020 [facility] g/dL 9:02 AM CDT LABORATORY Albumin 3.8 3.5 - 5.0 10/13/2020 [facility] g/dL 9:02 AM CDT LABORATORY Specimen Anatomical Collection Method / Collection Time Recei terra Time (Source) Location / Volume Laterality Blood Venipuncture / 10/13/2020 8:26 10/13/2020 8:32 Unknown AM CDT AM CDT Willy Serrano MD LAB_1 Performing Organization Address [facility] Phon e Number [facility] [address] [place] [id number] Lipase (10/13/2020 8:26 AM CDT) athologist Signature Lipase 16 <=60 U/L 10/13/2020 [facility] 9:02 AM CDT LABORATORY Specimen Anatomical Collection Method / Collection Time Recei terra Time (Source) Location / Volume Laterality Blood Venipuncture / 10/13/2020 8:26 10/13/2020 8:32 Unknown AM CDT AM CDT Narrative [facility] - 10/13/2020 9:02 A M CDT Please note, reference range change effe ctive 05/20/2020 for serum Lipase performed at [facility] Willy Serrano MD LAB_1 Performing Organization Address [facility] Phon e Number [facility] [address] [place] [address] Basic Metabolic Panel (10/13/2020 8:26 AM CDT) athologist Signature Sodium 139 136 - 145 10/13/2020 [facility] mmol/L 9:02 AM CDT LABORATORY Potassium 3.5 3.5 - 5.1 10/13/2020 [facility] mmol/L 9:02 AM CDT LABORATORY Chloride 103 98 - 109 10/13/2020 [facility] mmol/L 9:02 AM CDT LABORATORY CO2 28 20 - 29 10/13/2020 [facility] mmol/L 9:02 AM CDT LABORATORY Anion Gap 8 7 - 16 10/13/2020 [facility] mmol/L 9:02 AM CDT LABORATORY Calcium 9.2 8.4 - 10.4 10/13/2020 [facility] mg/dL 9:02 AM CDT LABORATORY BUN 11 7 - 26 10/13/2020 [facility] mg/dL 9:02 AM CDT LABORATORY Creatinine 0.80 0.55 - 10/13/2020 [facility] 1.02 mg/dL 9:02 AM CDT LABORATORY GFR, Estimated >60 >60 10/13/2020 [facility] mL/min/1.7 9:02 AM CDT LABORATORY 3m2 Glucose 90 70 - 100 10/13/2020 [facility] mg/dL 9:02 AM CDT LABORATORY Comment: The given reference range is fo r the fasting state. Non-fasting reference range for glucose is 70 - 180 mg/dL. Specimen Anatomical Collection Method / Collection Time Recei terra Time (Source) Location / Volume Laterality Blood Venipuncture / 10/13/2020 8:26 10/13/2020 8:32 Unknown AM CDT AM CDT Willy Serrano MD LAB_1 Performing Organization Address City/State/ZIP Code Phon e Number [facility] [address] [place] [address] ECG 12 Lead (10/13/2020 8:19 AM CDT) P athologist Signature Ventricular Rate 60 BPM [facility] Atrial Rate 60 BPM [facility] P-R Interval 180 ms [facility] QRS Duration 136 ms [facility] QT 438 ms [facility] QTc 438 ms [facility] P [place] 11 degrees [facility] R [place] 39 degrees [facility] T [place] 21 degrees [facility] Specimen (Source) Anatomical Collection Method Collection Time Re ceived Time Location / / Volume Laterality 10/13/2020 8:19 AM CDT Narrative [facility] - 10/13/2020 12:25 PM CDT Sinus rhythm Right bundle branch block Abnormal ECG When compared with ECG of 08-JUL-2020 14 :40, No significant change was found Confirmed by SILVA SERRANO ([id number]) on 12:25:04 PM Procedure Note Epic, Internal Processing - 10/13/2020Fo rmatting of this note might be different from the original. Sinus rhythm Right bundle branch block Abnormal ECG When compared with ECG of 08-JUL-2020 14 :40, No significant change was found Confirmed by SILVA SERRANO ([id number]) on 12:25:04 PM Willy Serrano MD PN ECG ORDERABLES Performing Organization Address City/State/ZIP Code Phon e Number [facility] [address] [place] [address] documented in this encounter Visit Diagnoses Diagnosis Female pelvic pain - Primary Unspecified symptom associated with fema le genital organs Hemorrhagic ovarian cyst Other and unspecified ovarian cyst Hemoperitoneum Hemoperitoneum (nontraumatic) History of tetralogy of Fallot BMI 32.0-32.9,adult Body Mass Index 32.0-32.9, adult Cyst of left ovary Other and unspecified ovarian cyst Malpositioned IUD (HRC) Other complications due to genitourinary device, implant, and graft History of tetralogy of Fallot repair Personal history of surgery to heart and great vessels, presenting hazards to health Arcuate uterus BMI 32.0-32.9,adult Body Mass Index 32.0-32.9, adult Hemorrhagic ovarian cyst Other and unspecified ovarian cyst Triage Assessment Note - Lucila Lopes RN - 10/13/2020 7:51 AM CDT Pt arrives for evaluation of right sided abdominal pain that began last night. Pt reports pain radiates to right shoulder. Few days ago, reports n/v/d. Also reports dysuria, denies blood in urine or stool. documented in this encounter Admitting Diagnoses Diagnosis Hemorrhagic ovarian cyst Other and unspecified ovarian cyst documented in this encounter Administered Medications Inactive Administered Medications - up to 3 most recent administrations Medication Order MAR Action Action Date Dose Rate Site acetaminophen (TYLENOL) tablet 650 mg 650 mg, Oral, Q6H PRN, Pain/Fever, fever greater than (101), Starting on Mon10/13/20 at 1437, Until Mon10/14/20 at 0056, Give for mild pain or if patient prefers acetaminophen over other options for pain (all pain sc ores). benzocaine-menthol (CEPACOL) lozenge 1 L ozenge 1 Lozenge, Oral, Q2H PRN, Throat Pain, S tarting on Mon10/13/20 at 1437, Until Mon10/14/20 at 0056 bupivacaine-epinephrine Given 10/13/2020 8:08 PM 7 mL Abdominal Tissue (SENSORCAINE) 0.25% -1:752524 CDT injection ONCE PRN, Starting on Mon10/13/20 at 2008, Until Mon10/14/20 at 0056, Intra-op calcium carbonate (TUMS) chewable tablet 500 mg 500 mg, Oral, Q4H PRN, Heartburn, Upset Stomach, Starting on Mon10/13/20 at 1437, Until Mon10/14/20 at 0056, Each tablet provides 200 mg elemental calcium dextrose 5 % infusion - ADS Override Pul l Starting on Mon10/13/20 at 2100, For 1 dose, Tommie Lora: cabinet override dextrose 5 % infusion 250 mL Started 10/13/2020 9:05 PM CDT 250 mL 250 mL, ONCE PRN, Other, nausea, Starting on Mon10/13/20 at 2101, For 1 dose fentaNYL (SUBLIMAZE) injection 25-50 mcg 25-50 mcg, Intravenous, [id number], Other, 25 mcg for Mi ld to Moderate Pain (pain score 1-5), 50 mcg for Moderate to Severe Pain (pain s core 6 and above) in the immediate postop period when faster on-set, short acti ng agent is desired., Starting on Mon10/13/20 at 1825, Until Mon10/14/20 at 00 56, Administer every 5 minutes as needed, to a maximum cumulati ve dose of 250 mcg. Call Anesthesiologist if additional dose needed For patients with a regional , spinal, or local anesthetic, may give for anticipated sowmya n as the anesthetic wears off. Use fentanyl initially for a short acting agent for t reatment of acute post-operative pain. May be used in conjunction with a longer acting agent if o rdered for optimal pain control. Respiratory rate must be greater than 10 to a dminister medications., PACU/Recovery fentaNYL (SUBLIMAZE) injection 25-50 mcg 25-50 mcg, Intravenous, [id number], Pain, Procedure, Starting on Mon10/13/20 at 1825, Until Mon10/14/20 at 0056, For 2 doses, As directed by anesthesiologist, Pre-op guaiFENesin (ROBITUSSIN) 100 MG/5ML oral liquid 10 mL 10 mL, Oral, Q4H PRN, Cough, Starting on Mon10/13/20 at 1437, Until Mon10/14/20 at 0056 HYDROmorphone (DILAUDID) injection 0.2-0 .3 mg 0.2-0.3 mg, Intravenous, Q10MIN PRN, Pain, 0.2 mg IV f or Mild to Moderate pain (pain score 1-5), 0.3 mg IV for Moderate to Severe pain (pain score 6 and above) in the immediate postop period when longer acting agent is desired., Starting on Mon10/13/20 at 1825, Until Mon10/14/20 at 005 , Maximum cumulative dose is 2 mg in PACU, call Anesthesiologist if additional dosa ge needed. For patients with a regional, spinal, or local anesthetic, may give fo r anticipated pain as the anesthetic wears off., PACU/Recovery HYDROmorphone (DILAUDID) injection 0.2-1 mg Given 10/13/2020 5:21 PM CDT 0.5 mg 0.2-1 mg, Intravenous, Q3H PRN, Pain, Starting on Mon10/13/20 at 1455, Until Mon10/14/20 at 0056, severe pain (pain score 8-10) HYDROmorphone (DILAUDID) injection 0.5 m g Given 10/13/2020 8:40 AM CDT 0.5 mg 0.5 mg, Intravenous, ONCE, On Mon10/13/20 at 0845, For 1 dose HYDROmorphone (DILAUDID) injection 0.5 m g Given 10/13/2020 1:47 PM CDT 0.5 mg 0.5 mg, Intravenous, NOW, On Mon10/13/20 at 1345, For 1 dose iopamidol (ISOVUE-300) 61 % injection 10 0 mL Given 10/13/2020 11:11 AM CDT 100 mL 100 mL, Intravenous, ONCE, On Mon10/13/20 at 1130, For 1 dose, Radiology iopamidol (ISOVUE-370) 76 % injection 10 0 mL Given 10/13/2020 11:19 AM CDT 73 mL 100 mL, Intravenous, ONCE, On Mon10/13/20 at 1145, For 1 dose, Radiology ketorolac (TORADOL) injection 15 mg Given 10/13/2020 10:26 AM CDT 15 mg 15 mg, Intravenous, ONCE, On Mon10/13/20 at 1045, For 1 dose lactated ringers infusion Restarted 10/13/2020 6:40 PM CDT 25 mL/hr, Intravenous, CONTINUOUS, Starting on Mon10/13/20 at 1815, Administer on all preop surgery patients, ages 12 and older, unless specified differently in the Protocol for Preop Initiation of IV fluids Order Set., Pre-op Started 10/13/2020 6:18 PM CDT 25 mL/hr 25 mL/hr lidocaine (UROJET) 2 % prefilled syringe Urethral, PRN, Local Anesthetic, Urethral Discomfort, Starting on Mon10/13/20 at 1437, Consider using for any adult male or any patients with a history of painful urinary catheter insertion and no lidocaine allergy. meperidine (DEMEROL) injection 12.5 mg 12.5 mg, Intravenous, [id number], Shiverin g, Starting on Mon10/13/20 at 1825, Until Mon10/14/20 at 0056, For 2 doses, Maximum cumulative dose is 25 mg. Do not give to patients receiving MAO inhibitors (e.g. phenelzine (NA RDIL), tranylcypromine (PARNATE), selegiline (ELDEPRYL))., PACU/Recovery midazolam (VERSED) injection 1-2 mg 1-2 mg, Intravenous, [id number], Sedation, Anxiety, Procedure, Starting on Mon10/13/20 at 1825, Until Mon10/14/20 at 0056, As di rected by anesthesiologist MAX Dose 2mg, Pre-op naloxone (NARCAN) injection 0.08 mg 0.08 mg, Intravenous, PRN, Other, For respiratory rate less than 8/minute or patient difficult to arouse, Starting on Mon10/13/20 at 1825, Until Mon10/14/20 at 0056, May repeat every 3 minutes or until patient is r esponsive to physical stimulation and is able to take deep luis felipe aths. Maximum cumulative dose is 0.4 mg (1 mL). Continue to observe; if no response after administering total dose of 0.4 mg notify anesthesiologist STAT., PACU/Recovery naloxone (NARCAN) injection 0.4 mg 0.4 mg, Intravenous, ONCE PRN, Opioid Reversal, Starti ng on Mon10/13/20 at 1825, Until Mon10/14/20 at 0056, For 1 dose, Fo r imminent respiratory arrest. Notify MD if naloxone is given., PACU/Recovery ondansetron (ZOFRAN) injection 4 mg Given 10/13/2020 3:02 PM CDT 4 mg 4 mg, Intravenous, Q4H PRN, Nausea, Vomiting, Starting on Mon10/13/20 at 1439, Until Mon10/14/20 at 0056 ondansetron (ZOFRAN) injection 4 mg 4 mg, Intravenous, ONCE PRN, Nausea, Starting on Mon at 1652, Until Mon10/14/20 at 0056, For 1 dose, Give in pre-op holding if needed., Pre-op ondansetron (ZOFRAN) injection 4 mg Given 10/13/2020 9:00 PM CDT 4 mg 4 mg, Intravenous, Q4H PRN, Nausea, Vomiting, Starting on Mon10/13/20 at 1825, Until Mon10/14/20 at 0056, If multiple medications are ordered for nausea or vomiting - administer in the following priority based on medications ordered, effectiveness and availability: ondansetron (ZOFRAN) > prochlorperazine (COMPAZINE) > diphenhydrAMINE (BENADRYL) > hydrOXYzine HCl (VISTARIL)> ePHEDrine > scopolamine (TRANSDERM-SCOP)., PACU/Recovery polyethyl-propylene glycol (SYSTANE) 0.4 -0.3 % ophthalmic solution 1 Drop 1 Drop, Both Eyes, Q1H PRN, Dry Eyes, It su Eyes, Starting on Mon10/13/20 at 1437, Until Mon10/14/20 at 0056 prochlorperazine (COMPAZINE) injection 5 mg Given 10/13/2020 9:35 PM CDT 5 mg 5 mg, Intravenous, ONCE, On Mon10/13/20 at 2130, For 1 dose senna (SENOKOT) tablet 1 Tablet 1 Tablet, Oral, DAILY PRN, Constipation, Mild Constipation, Starting on Mon10/13/20 at 1437, Until Mon10/14/20 at 0056, Mild constipation sodium chloride (OCEAN) 0.65 % nasal scott ution 1 Montgomery 1 Montgomery, Both Nostrils, Q2H PRN, Dry Nos e, Starting on Mon10/13/20 at 1437, Until Mon10/14/20 at 0056 sodium chloride 0.9% 0.9 % injection - ADS Given 10/13/2020 10:2 7 AM CDT 10 mL Override Pull Starting on Mon10/13/20 at 1023, Until Mon10/13/20 at 1027, For 1 dose, Giancarlo Sandoval: cabinet override sodium chloride 0.9% bolus 100 mL Started 10/13/2020 11:19 AM CDT 100 mL 100 mL, Intravenous, Administer over 1 Hours, ONCE, On Mon10/13/20 at 1145, For 1 dose, Radiology sodium chloride 0.9% infusion Started 10/13/2020 8:27 AM CDT 1,000 mL 1000 mL/hr 1,000 mL, Intravenous, at 1,000 mL/hr, ONCE, On Mon10/13/20 at 0830, For 1 dose sodium chloride 0.9% infusion Started 10/13/2020 3:01 PM CDT 125 mL/hr Intravenous, at 125 mL/hr, CONTINUOUS, Starting on Mon10/13/20 at 1500 sodium chloride 0.9% injection 10 mL Given 10/13/2020 11:11 AM CDT 10 mL 10 mL, Intravenous, ONCE, On Mon10/13/20 at 1130, For 1 dose, Radiology sodium chloride 0.9% injection 10 mL Given 10/13/2020 11:19 AM CDT 10 mL 10 mL, Intravenous, ONCE, On Mon10/13/20 at 1145, For 1 dose, Radiology sodium chloride 0.9% injection 10-60 mL 10-60 mL, Intravenous, BID, First dose o n Mon10/13/20 at 2000, Until Discontinued, For an INT flush, flush with at least 10 mL. For PICC (including Power Injectable PICC), flush with 10 mL. For Port-a-Cath, flush with a minimum of 10 mL. For Dunbar, flush with a minimum of 10 mL. For jugular, subclavian, femoral central lines, flush with a minimum of 10 mL. For additional i nformation about flushing processes, reference the Vascular Access Device Users Guide. sodium chloride 0.9% injection 10-60 mL 10-60 mL, Intravenous, PRN, Line Patency , Other, Line Care, Starting on Mon10/13/20 at 1437, Until Mon10/14/20 at 0056, For a n INT flush, flush with at least 10 mL. For PICC (including Power Injectable PICC), flush with 10 mL. For Port-a-Cath, flush with a minimum of 10 mL. For Dunbar, fl ush with a minimum of 10 mL. For jugular, subclavian, femoral central lines, flush with a minimum of 10 mL. For additional information about flushing processes, re ference the Vascular Access Device Users Guide. documented in this encounter Active and Recently Administered Medications Times are shown in CDT. Scheduled Medication Order 10/11/2020 10/12/2020 10/13/2020 HYDROmorphone (DILAUDID) injection 0.5 mg (COMPLETED) 0840 (Given - Provider: Giancarlo Sandoval RN) 0.5 mg, Intravenous, ONCE, On Mon10/13/20 at 0845, For 1 dose HYDROmorphone (DILAUDID) injection 0.5 mg (COMPLETED) 1347 (Given - Provider: Danny Luna RN) 0.5 mg, Intravenous, NOW, On Mon10/13/20 at 1345, For 1 dose iopamidol (ISOVUE-300) 61 % injection 100 mL (COMPLETED) 1111 (Given - Provider: Chris Keith - Comment: [id number]) 100 mL, Intravenous, ONCE, On Mon10/13/20 at 1130, For 1 dose, Ra diology iopamidol (ISOVUE-370) 76 % injection 100 mL (COMPLETED) 1119 (Given - Provider: Juany Larios - Comment: [id number]) 100 mL, Intravenous, ONCE, On Mon10/13/20 at 1145, For 1 dose, Ra diology ketorolac (TORADOL) injection 15 mg (COMPLETED) 1026 (Given - Provider: Giancarlo Sandoval, MIREILLE) 15 mg, Intravenous, ONCE, On Mon10/13/20 at 1045, For 1 dose NO pre-op antibiotics needed 175 6 (Noted - Provider: Virginie Kessler, MIREILLE)1757 (JUN Hold - Provider: Automatichold - Reason: Other (Enter Reason in Comment Area)) ONCE, On Mon10/13/20 at 1715, For 1 dose, Pre-op prochlorperazine (COMPAZINE) injection 5 mg (COMPLETED) 2134 (Given - Provider: Concha Lora, MIREILLE) 5 mg, Intravenous, ONCE, On Mon10/13/20 at 2130, For 1 dose sodium chloride 0.9% bolus 100 mL (COMPLETED) 1119 (Started - Provider: Juany Larios)1219 (Due: Infused - Provider: Juany Larios) 100 mL, Intravenous, Administer over 1 H ours, ONCE, On Mon10/13/20 at 1145, For 1 dose, Radiology sodium chloride 0.9% infusion (COMPLETED) 0827 (Started - Provider: Giancarlo Sandoval, MIREILLE)1021 (Infused - Provider: Giancarlo Sandoval, MIREILLE) 1,000 mL, Intravenous, at 1,000 mL/hr, ONCE, On Mon10/13/20 a t 0830, For 1 dose sodium chloride 0.9% injection 10 mL (COMPLETED) 1111 (Given - Provider: Chris Keith) 10 mL, Intravenous, ONCE, On Mon10/13/20 at 1130, For 1 dose, Rad iology sodium chloride 0.9% injection 10 mL (COMPLETED) 1119 (Given - Provider: Juany Larios) 10 mL, Intravenous, ONCE, On Mon10/13/20 at 1145, For 1 dose, Rad iology sodium chloride 0.9% injection 10-60 mL 1757 (MAR Hold - Provider: Automatichold - Reason: Other (Enter Reason in Comment Area))1999 (Automatically Held - Provider: Automatichold) 10-60 mL, Intravenous, BID, First dose o n Mon10/13/20 at 2000, For an INT flush, flush with at least 10 mL. For PICC (including Power Injectable PICC), flush with 10 mL. For Port-a-Cath, flush with a min imum of 10 mL. For Dunbar, flush with a minimum of 10 mL. For jugular, subclavian, femoral central lines, flush with a minimum of 10 mL. For additional information about flushing processes, reference the Vascular Access Device Users Guide. Continuous Medication Order 10/11/2020 10/12/2020 10/13/2020 lactated ringers infusion 181 ( Started - Provider: Virginie Kessler, MIREILLE)183 (Stopped - Provider: Saba Field APRN, CRNA - Comment: Switch to gravity)1839 (Restarted - Provider: Saba Field APRN, CRNA)1958 (Anesthesia Fluid - Provider: Saba Field APRN, CRNA) 25 mL/hr, Intravenous, at 25 mL/hr, CONT INUOUS, Starting on Mon10/13/20 at 1815, Administer on all preop surgery patients, ages 12 and older, unless specified differently in the Protocol for Preop Initiation of IV fluids Order Set., Pre-op sodium chloride 0.9% infusion 15 (Started - Provider: Danny Luna RN)175 (JUN Hold - Provider: Automatichold - Reason: Other (Enter Reason in Comment Area)) Intravenous, at 125 mL/hr, CONTINUOUS, Starting on Mon10/13/20 at 1500 PRN Medication Order 10/11/2020 10/12/2020 10/13/2020 acetaminophen (TYLENOL) tablet 650 mg 1756 (JUN Hold - Provider: Automatichold - Reason: Other (Enter Reason in Comment Area)) 650 mg, Oral, Q6H PRN, Pain/Fever, fever greater than (101), Starting on Mon10/13/20 at 1437, Give for mild pain or if patient prefers acetaminophen over other options for pain (all pain scores). benzocaine-menthol (CEPACOL) lozenge 1 Lozenge 1756 (JUN Hold - Provider: Automatichold - Reason: Other (Enter Reason in Comment Area)) 1 Lozenge, Oral, Q2H PRN, Throat Pain, Starting on Mon10/13/20 at 1437 bupivacaine-epinephrine (SENSORCAINE) 0.25% -1:102676 injection 2007 (Given - Provider: Nereida Simpson MD) ONCE PRN, Starting on Mon10/13/20 at 2007, Intra-op calcium carbonate (TUMS) chewable tablet 500 mg 1756 (JUN Hold - Provider: Automatichold - Reason: Other (Enter Reason in Comment Area)) 500 mg, Oral, Q4H PRN, Heartburn, Upset Stomach, Starting on Mon10/13/20 at 1437, Each tablet provides 200 mg elemental calcium dextrose 5 % infusion 250 mL (COMPLETED) 2104 (Started - Provider: Niru Seo RN) 250 mL, ONCE PRN, Other, nausea, Starting on Mon10/13/20 at 210, For 1 dose fentaNYL (SUBLIMAZE) injection 25-50 mcg 25-50 mcg, Intravenous, [id number], Other, 25 mcg for Mild to Moderate Pain (pain score 1-5), 50 mcg for Moderate to Severe Pain (pain score 6 and above) in the immediate postop period when faster on-set, short acting agent is desired., Startin g on Mon10/13/20 at 1825, Administer every 5 minutes as needed, to a maximum cumulative dose of 250 mcg. Call Anesthesiologist if additional dose needed For patien ts with a regional, spinal, or local ane sthetic, may give for anticipated pain as the anesthetic wears off. Use fentanyl initially for a short acting agent for treatment of acute post-operative pain. Ma y be used in conjunction with a longer a cting agent if ordered for optimal pain control. Respiratory rate must be greater than 10 to administer medications., PACU/Recovery fentaNYL (SUBLIMAZE) injection 25-50 mcg 25-50 mcg, Intravenous, [id number], Pain, Procedure, Starting on Mon10/13/20 at 1825, For 2 doses, As directed by anesthesiologist, Pre-op guaiFENesin (ROBITUSSIN) 100 MG/5ML oral liquid 10 mL 1756 (JUN Hold - Provider: Automatichold - Reason: Other (Enter Reason in Comment Area)) 10 mL, Oral, Q4H PRN, Cough, Starting on Mon10/13/20 at 1437 HYDROmorphone (DILAUDID) injection 0.2-0.3 mg 0.2-0.3 mg, Intravenous, Q10MIN PRN, Sowmya n, 0.2 mg IV for Mild to Moderate pain (pain score 1-5), 0.3 mg IV for Moderate to Severe pain (pain score 6 and above) in the immediate postop period when longer acting agent is desired., Starting on T 10/13/20 at 1825, Maximum cumulative dose is 2 mg in PACU, call Anesthesiologist if additional dosage needed. For patients with a regional, spinal, or local anes thetic, may give for anticipated pain as the anesthetic wears off., PACU/Recovery HYDROmorphone (DILAUDID) injection 0.2-1 mg 172 (Given - Provider: Lucila Lopes RN)1756 (JUN Hold - Provider: Automatichold - Reason: Other (Enter Reason in Comment Area)) 0.2-1 mg, Intravenous, Q3H PRN, Pain, St arting on Mon10/13/20 at 1455, severe pain (pain score 8-10) ibuprofen (MOTRIN) tablet 600 mg 600 mg, Oral, Q6H PRN, Other, Mild Pain (pain score 1-4), Starting on Mon10/13/20 at 2048, Give with food or milk. Administer ibuprofen or acetaminophen for mild pain, not both, based on patient preference. , Post-op lidocaine (UROJET) 2 % prefilled syringe 1756 (JUN Hold - Provider: Automatichold - Reason: Other (Enter Reason in Comment Area)) Urethral, PRN, Local Anesthetic, Urethra l Discomfort, Starting on Mon10/13/20 at 1437, Consider using for any adult male or any patients with a history of painful urinary catheter insertion and no lidocaine allergy. meperidine (DEMEROL) injection 12.5 mg 12.5 mg, Intravenous, [id number], Shiverin g, Starting on Mon10/13/20 at 1825, For 2 doses, Maximum cumulative dose is 25 mg. Do not give to patients receiving MAO inhibitors (e.g. phenelzine (NARDIL), matta ylcypromine (PARNATE), selegiline (ELDEPRYL))., PACU/Recovery midazolam (VERSED) injection 1-2 mg 1-2 mg, Intravenous, [id number], Sedation, Anxiety, Procedure, Starting on Mon10/13/20 at 1825, As directed by anesthesiologist MAX Dose 2mg, Pre-op naloxone (NARCAN) injection 0.08 mg 0.08 mg, Intravenous, PRN, Other, For re spiratory rate less than 8/minute or patient difficult to arouse, Starting on Mon10/13/20 at 1825, May repeat every 3 minutes or until patient is responsive to phy sical stimulation and is able to take de ep breaths. Maximum cumulative dose is 0.4 mg (1 mL). Continue to observe; if no response after administering total dose of 0.4 mg notify anesthesiologist STAT., PACU/Recovery naloxone (NARCAN) injection 0.4 mg 0.4 mg, Intravenous, ONCE PRN, Opioid Re versal, Starting on Mon10/13/20 at 1825, For 1 dose, For imminent respiratory arrest. Notify MD if naloxone is given., PACU/Recovery ondansetron (ZOFRAN) injection 4 mg 1502 (Given - Provider: Danny Luna RN)1757 (JUN Hold - Provider: Automatichold - Reason: Other (Enter Reason in Comment Area)) 4 mg, Intravenous, Q4H PRN, Nausea, Vomiting, Starting on 09/28 at 1439 ondansetron (ZOFRAN) injection 4 mg 1757 (JUN Hold - Provider: Automatichold - Reason: Other (Enter Reason in Comment Area)) 4 mg, Intravenous, ONCE PRN, Nausea, Sta rting on Mon10/13/20 at 1652, For 1 dose, Give in pre-op holding if needed., Pre-op ondansetron (ZOFRAN) injection 4 mg 2100 (Given - Provider: Niru Seo RN) 4 mg, Intravenous, Q4H PRN, Nausea, Vomi ting, Starting on Mon10/13/20 at 1825, If multiple medications are ordered for nausea or vomiting - administer in the following priority based on medications order ed, effectiveness and availability: onda nsetron (ZOFRAN) > prochlorperazine (COMPAZINE) > diphenhydrAMINE (BENADRYL) > hydrOXYzine HCl (VISTARIL)> ePHEDrine > scopolamine (TRANSDERM-SCOP)., PACU/Recovery oxyCODONE (ROXICODONE) immediate release tablet 5-10 mg 5-10 mg, Oral, Q4H PRN, Other, Moderate Pain (pain score 5-7), Starting on Mon10/13/20 at 2048, Post-op polyethyl-propylene glycol (SYSTANE) 0.4-0.3 % ophthalmic soluti on 1 Drop 1756 (JUN Hold - Provider: Automatichold - Reason: Other (Enter Reason in Comment Area)) 1 Drop, Both Eyes, Q1H PRN, Dry Eyes, It su Eyes, Starting on Mon10/13/20 at 1437 senna (SENOKOT) tablet 1 Tablet 1756 (JUN Hold - Provider: Automatichold - Reason: Other (Enter Reason in Comment Area)) 1 Tablet, Oral, DAILY PRN, Constipation, Mild Constipation, Starting on Mon10/13/20 at 1437, Mild constipation sodium chloride (OCEAN) 0.65 % nasal solution 1 [place] 1756 ([facility] Hold - Provider: Automatichold - Reason: Other (Enter Reason in Comment Area)) 1 [place], Both Nostrils, Q2H PRN, Dry Nose, Starting on Mon 1 at 1437 sodium chloride 0.9% injection 10-60 mL 1756 ([facility] Hold - Provider: Automatichold - Reason: Other (Enter Reason in Comment Area)) 10-60 mL, Intravenous, PRN, Line Patency , Other, Line Care, Starting on Mon10/13/20 at 1437, For an INT flush, flush with at least 10 mL. For PICC (including Power Injectable PICC), flush with 10 mL. For Port-a-Cath, flush with a minimum of 10 mL. For Dunbar, flush with a minimum of 10 mL. For jugular, subclavian, femoral central lines, flush with a minimum of 10 mL. For additional information about f lushing processes, reference the Vascular Access Device Users Gu frank. No Frequency Medication Order 10/11/2020 10/12/2020 10/13/2020 sodium chloride 0.9% 0.9 % injection - ADS Override Pull (COMPLE RICK) 1027 (Given - Provider: Giancarlo Sandoval RN) Starting on Mon10/13/20 at 1023, For 1 dose, Giancarlo Sandoval: cabi net override documented in this encounter Care Teams Acid Tester Relationship Specialty Start Date End Date John Stokes MD PCP - General Family Practice 07/08/20 07/14/21 [facility] [address] [place] [id number] documented as of this encounter
--- OUTSIDE RECORDS SUMMARY | 2022-01-20 19:51 | XMS_ITS | Encounter Summary ---
:1995 Author Organization [facility] Address [address] [place] [address] Care Team Providers Name Role Phone No Primary/Referring, Phy Primary Care Provider Unavailable Reason for Referral Procedure/Equipment (Routine) - Incomplete Specialty Diagnoses / Procedures Referred By Contact Refer red To Contact Diagnoses Abdominal pain, generalized Michael Carlson PA-C Procedures XR Abd 2 Views Routine [address] [place], [place] [address] Referral ID Status Reason Start Date Expiration Date Visits V isits Requested Authorized [id number] Incomplete 05/21/2016 08/20/2017 1 1 NICAL SUPPORT SPECIALIST Reason for Visit Reason Comments ABDOMINAL PAIN Encounter Details Date Type Department Care Team Description 05/21/2016 Office Visit [facility] Abdominal gas pain (Primary Dx); [address] Abdominal pain, generalized [place], [place] [address] Social History Tobacco Use Types Packs/Day Years Used Date Smoking Tobacco: Never Sex Assigned at Date Recorded Female 10/26/2020 7:23 AM CDT documented as of this encounter Last Filed Vital Signs Vital Sign Reading Time Taken Comments Blood Pressure 135/81 05/21/2016 3:16 PM TECHNICAL SUPPORT SPECIALIST Pulse 70 05/21/2016 3:16 PM TECHNICAL SUPPORT SPECIALIST Temperature 36.8 ??C (98.3 ??F) 05/21/2016 3:16 PM TECHNICAL SUPPORT SPECIALIST Respiratory Rate 16 05/21/2016 3:16 PM TECHNICAL SUPPORT SPECIALIST Oxygen Saturation - - Inhaled Oxygen Concentration - - Weight 102.1 kg (225 lb) 05/21/2016 3:16 PM TECHNICAL SUPPORT SPECIALIST Height 170.2 cm (5' 7) 05/21/2016 3:16 PM TECHNICAL SUPPORT SPECIALIST Body Mass Index 35.24 05/21/2016 3:16 PM TECHNICAL SUPPORT SPECIALIST Body Mass Index Percentile 97.69 % 05/21/2016 3:16 PM CS T Growth Chart: [facility] (Girls, 2-20 Years) documented in this encounter Patient Instructions Patient InstructionsMichael Carlson PA-C - 05/21/2016 5:08 PM CST Frequent Abdominal Pain in Children: Care Instructions Your Care Instructions Frequent abdominal pain is belly pain that occurs at least 3 times over 3 months. Sometimes the painis linked to foods your child eats. But most of the time the pain cannot be explained. Sometimes the pain is so bad that your child cannot do his or her normal activities. Stress, anger, or excitement can make the pain worse. Your doctor may use the words functional abdominal pain syndrome or recurrent abdominal pain to describe the problem. It can be hard when your child is in pain and the doctor can find no cause, even when tests are done. Even if you cannot make the pain go away, there are some things you can do to help your child manage it. Follow-up care is a ly part of your child's treatment and safety. Be sure to make and go to all appointments, and call your doctor if your child is having problems. It's also a good idea to know your child's test results and keep a list of the medicines your child takes. How can you care for your child at home? ?? Keep your child doing normal activities as much as possible. Many children are able to keep theirpain under control if they remember it is just the usual bellyache when pain starts. ?? Be sure your child has regular meals and snack times. ?? Be sure your child has a regular bedtime so he or she gets enough sleep. ?? Keep a symptom diary. This can help you see if there are events or emotions that make your child's pain worse. Write down what your child ate, drank, or felt before the pain began. ?? Help your child reduce stress. Breathing exercises and relaxation techniques can help. ?? Try cognitive-behavioral therapy. You and your child can work with a counselor to learn how to dothis therapy. It can help your child cope with pain by changing the way he or she thinks. How your child thinks can affect his or her feelings. When should you call for help? Call your doctor now or seek immediate medical care if: ?? Your child has a fever and belly pain. ?? Your child has severe pain that is different from his or her usual belly pain. Watch closely for changes in your child's health, and be sure to contact your doctor if: ?? Your child's pattern of pain or discomfort changes. ?? You have questions or concerns about your child's belly pain. Where can you learn more? 1. Go to [employer] or [employer]. 2. Enter T738 in the search box. Current as of: September 04, 2015 Content Version: 11.0 ?? 3368-1783 [employer] [place]. NICAL SUPPORT SPECIALIST documented in this encounter Progress Notes Michael Carlson PA-C - 05/21/2016 5:01 PM CST SUBJECTIVE Malinda Medina is a 20 y.o. female here with unaccompanied for evaluation of abdominal pain. Characteristics of the pain are as follows: Location: epigastric without radiation Quality: cramping Quantity: 10/10 in intensity when there. None now Chronicity: Onset 1 days ago, off and on since onset Timing: unknown Aggravating factors: unknown Alleviating factors: unknown Associated symptoms: nausea Environmental factors: family stressors: none, financial worries. Family history: negative No past medical history on file. Current Outpatient Prescriptions Medication Sig Dispense Refill ??? ibuprofen (MOTRIN) 200 MG tablet Take 200-400 mg by mouth every 4 hours as needed for Pain. No current facility-administered medications for this visit. Allergies: Review of patient's allergies indicates no known allergies. REVIEW OF SYSTEMS Respiratory: System reviewed. No problems identified. Cardiovascular: System reviewed. No concerns., normal activity level Gastrointestinal: system reviewed. No problems identified. Genitourinary: System reviewed. No concerns. Menstrual History: menses irregular with IUD OBJECTIVE BP 135/81 mmHg Pulse 70 Temp(Src) 98.3 ??F (36.8 ??C) (Tympanic) Resp 16 Ht 5' 7 (1.702 m) Wt 225 lb (102.059 kg) BMI 35.23 kg/m2 LMP (Approximate) General appearance: alert, in no distress Hydration: normal skin turgor Eyes: no abnormalities detected Nose: normal Oropharynx: normal Neck: supple and no adenopathy Lungs: clear to auscultation, no wheezes, rales or rhonchi Abdomen: Inspection:rounded, Auscultation:normal bowel sounds. Palpation: Tenderness:present, mild, epigastric generalized, duration 1 day(s) Masses:none Organomegaly: none Rectal: not done Lab/X-Ray/Tx: Abdomen: gas noted. ASSESSMENT Abdominal pain gas PLAN Medications: Antibiotics not indicated at this time. Mylanta regimen discussed with pt. And Observation with Follow up if increased symptoms over 1-2 days. Referrals: None indicated at this time. Michael Carlson PA-C NICAL SUPPORT SPECIALIST documented in this encounter Nursing Notes Johnathan Tierney CMA - 05/21/2016 3:15 PM CST Johnathan Cochran CMA NICAL SUPPORT SPECIALIST documented in this encounter Plan of Treatment Not on filedocumented as of this encounter Results XR Abd 2 Views Routine (05/21/2016 4:30 PM TECHNICAL SUPPORT SPECIALIST) Anatomical Region Laterality Modality Abdomen Computed Radiography Specimen (Source) Anatomical Collection Method Collection Time Re ceived Time Location / / Volume Laterality 05/21/2016 4:30 PM TECHNICAL SUPPORT SPECIALIST Narrative 05/21/2016 5:01 PM TECHNICAL SUPPORT SPECIALIST XR ABD 2 VIEWS ROUTINE 05/21/2016 4:30 PM INDICATION: Generalized abdominal pain. ? COMPARISON: None. FINDINGS: No dilated loops of small florinda l are visualized. No air-fluid levels. No free air. Patchy opacity at t he left lung base could be due to atelectasis or infiltrate. Procedure Note Mylene Dallas MD - 05/21/2016Formatti ng of this note might be different from the original. XR ABD 2 VIEWS ROUTINE 05/21/2016 4:30 PM INDICATION: Generalized abdominal pain. COMPARISON: None. FINDINGS: No dilated loops of small florinda l are visualized. No air-fluid levels. No free air. Patchy opacity at t he left lung base could be due to atelectasis or infiltrate. Michael CABRERA GD documented in this encounter Visit Diagnoses Diagnosis Abdominal gas pain - Primary Flatulence, eructation, and gas pain Abdominal pain, generalized Abdominal pain, generalized documented in this encounter Care Teams Microbiology Lab Technician Relationship Specialty Start Date End Date No Primary/Referring, Phy PCP - General 05/21/16 documented as of this encounter
--- OUTSIDE RECORDS SUMMARY | 2022-01-20 19:51 | XMS_ITS | Encounter Summary ---
:1995 Author Organization [facility] [facility] Address [address] [address] Care Team Providers Name Role Phone John [...] Expiration Date Visits Requ ested Visits Authorized [id number] 1 1 Encounter Details Date Type Department Care Team Description 10/13/2020 Surgery [facility] Operating Catracho, Nereida Hanks MD Laparoscopy with Room [address] evacuation of [address] hemoperitoeum, left [place], [place] ov cem [place], [phone] removal of intrauterine [phone] (Wo rk) device Social History Tobacco Use Types Packs/Day Years Used Date Smoking Tobacco: Never Sex Assigned at Date Recorded Female 10/26/2020 7:23 AM CDT documented as of this encounter Last Filed Vital Signs Vital Sign Reading Time Taken Comments Blood Pressure 123/75 10/13/2020 6:06 PM CDT Pulse 69 10/13/2020 6:06 PM CDT Temperature 36.6 ??C (97.9 ??F) 10/13/2020 6:06 PM CDT Respiratory Rate 16 10/13/2020 6:06 PM CDT Oxygen Saturation 100% 10/13/2020 6:06 PM CDT Inhaled Oxygen Concentration - - [...] cleared for surgery by the hospitalist, Dr. Elliott. OR was called and the ED team [...] Simpson MD - 10/13/2020 8:28 PM CDT [facility] Brief Operative Progress Note Surgery Date: 10/13/2020 [...] 10/13/2020 12:00 AM CDT NAME: JUANA SCHNEIDER [facility]: [id number] OPERATIVE REPORT DATE OF SURGERY: 10/13/2020 : 1995 SURGEON: NEREIDA SIMPSON MD PREOPERATIVE DIAGNOSES: 1. Hemorrhagic ovarian cyst. 2. Hemoperitoneum. 3. Female pelvic pain. 4. Body mass index of 32. 5. Malpositioned intrauterine device. 6. 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 POSTOPERATIVE DIAGNOSES: 1. Hemorrhagic ovarian cyst. 2. Hemoperitoneum. 3. Female pelvic pain. 4. Body mass index of 32. 5. Malpositioned intrauterine device. FACETER: Dr. Centeno (assistance was required for retraction [...] anesthesia without difficulty. She was placed in [facility] and examined. She had a small mobile [...] No apparent complications. NEREIDA SIMPSON MD NMD/AQS /[id number] documented in this encounter Consult Notes Sofia Elliott MD - 10/13/2020 4:24 PM CDT Note dictated. OK to proceed with surgery. Recent cardiac MRI and monitor ( 26 days) unremarkable. Sofia Elliott MD 10/13/2020, 4:25 PM Sofia Elliott MD - 10/13/2020 12:00 AM CDT NAME: JUANA SCNHEIDER CSN: [id number] HOSPITAL CONSULTATION DATE OF CONSULTATION: 10/13/2020 : 1995 Consultation requested by for preop evaluation before possible surgery for ruptured ovarian cyst. 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 Otherwise no chronic medical issues. Admitted with nausea, vomiting, diarrhea, fevers, and subsequently severe umbilical pain. She took [id number] remedies without any improvement. Subsequently, pain was [...] PE or DVT. 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 Ruptured ovarian cyst with hemoperitoneum. Per CAR SUPERVISOR. Possible surgical intervention later today versus conservative treatment. Benign exam. Hemoglobin slightly lower at 11.5. 2. Tetralogy of Fallot. Stable cardiac status. Recent cardiac MRI demonstrated normal ejection fraction. No new significant abnormalities. She also recently had a monitor technician for 26 days. Mostly sinus rhythm with only 1 episode of VT (only 10 beats). Okay to proceed with surgery as planned. Low surgical risks. CODE STATUS: Full. DVT PROPHYLAXIS: Per surgery. MD RAVEN BEK/AQS /[id number] documented in this encounter OR Notes H&P - CatrachoNereida MD - 10/13/2020 2:46 PM CDT GYNECOLOGIC [...] she needs to mail it back to [facility] for them to read it. She follows at [facility] as she is s/p tetrology of fallot repair at 10 months of age. 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 [...] P-R Interval QRS Duration QT QTc P [place] R [place] T [place] 10/13/20 08:19:50 10/13/20 12:25:06 60 60 180 136 438 438 11 39 21 Final result Narrative: Sinus rhythm Right bundle branch block Abnormal ECG When compared with ECG of 08-JUL-2020 14:40, No significant change was found Confirmed by SILVA SERRANO ([id number]) on 10/13/2020 12:25:04 PM Imaging: Results per [...] Consultations: 1400 I spoke with the on-call SET ILLUSTRATOR, Dr Nereida Simpson. Interventions: 0827 Sodium chloride bolus 1,000 mL IV 0840 Dilaudid 0.5 mg IV 1026 Toradol 15 mg IV 1347 Dilaudid 0.5 mg IV Disposition: Admitted to SET ILLUSTRATOR service for observation. I discussed case with the admitting physician. Last EC Vitals: Temp: 36.9 ??C (98.4 ??F) (10/14 751) Temp src: Oral (10/14 751) Pulse: 66 (10/130) Resp: 20 (10/14 751) BP: 127/80 (10/130) SpO2: 97 % (10/13 1429) Impression and Plan: Juana Schneider is a [...] abdomen and pelvis given the patient was can closing machine tender on my reassessment despite dilaudid. CTA of [...] her clinical history. I spoke with on-call SET ILLUSTRATOR. We will plan to admit the patient [...] cyst [K66.1] Hemoperitoneum [employer] I, Makayla Latonya Calhoun, am serving as a scribe at 8:15 AM to document services personally performed by Willy Serrano MD, based on my observations and the provider's statements to me. 10/13/2020 [facility] Portions of this medical record were completed [...] GC, Urine STD (10/13/2020 9:28 PM CDT) [facility] gist Method Time Signature Chlamydia Not Not 10/14/2020 [facility] Trachomatis Detected Detected 2:01 PM CDT CENTRAL LAB STD N. gonorrhoeae Not Not 10/14/2020 [facility] STD Detected Detected 2:01 PM CDT CENTRAL LAB Specimen Anatomical Collection Method Collection Time Receive d Time (Source) Location / / Volume Laterality Urine STD (Urine Non-blood 10/13/2020 9:28 PM 10/13 9:31 for STD) Collection / CDT PM CDT Unknown Narrative [facility] - 10/14/2020 2:01 PM CDT Test performed by Art Model Mediated Amplification (TMA). Urine Volume submitted was greater than 30 ml. Excess collection volume may decrease test sensitivity. Nereida Simpson MD LAB_1 Performing Organization Address City/[facility]/ZIP Code Phon e Number [facility] [address] [place] [id number] (ABNORMAL) Hemoglobin (10/13/2020 9:16 PM CDT) P athologist Signature Hemoglobin 10.9 (L) 12.0 - 10/13/2020 [facility] 15.5 g/dL 9:24 PM CDT LABORATORY Specimen Anatomical Collection Method / Collection Time Recei terra Time (Source) Location / Volume Laterality Blood Venipuncture / 10/13/2020 9:16 10/13/2020 9:21 Unknown PM CDT PM CDT Nereida Simpson MD LAB_1 Performing Organization Address City/[facility]/ZIP Code Phon e Number [facility] [address] [place] [address] Surgical Path (10/13/2020 8:06 PM CDT) Component Value Ref Test Analysis Performed At Patholo gist Range Method Time Signature Case Report Surgical Pathology ?Case: [id number] ? 10/15/2020 [facility] Authorizing Provider: ??Nereida Simpson MD ? Collected: ? 10/13/20202005 ? 10:16 AM LABO ADA Ordering Location: ? [facility] Operating Room [...] Female pelvic pain CDT Microscopic Microscopic 10/15/2020 [facility] Description examination is 10:16 AM LABORATORY performed. CDT Gross A: 10/15/2020 [facility] Description The specimen is received in formalin and labeled with the patient's name and Ovary, left, Left ovarian cyst . The specimen consists of multiple hess-pink membranous soft tissue fragments consistent wi 10:16 AM LABORATORY th cyst wall aggregating 2 x 1.5 x 0.3 cm. The specimen is filtered and entirely submitted in 1 cassette. DJ CDT Embedded 10/15/2020 [facility] Images 10:16 AM LABORATORY CDT Specimen Anatomical Collection Method Collection Time Receive d Time (Source) Location / / Volume Laterality Tissue STRUCTURE OF LEFT 10/13/2020 8:06 PM 07/0 10/2020 5:58 OVARY / Unknown CDT AM CDT Nereida Simpson MD LAB PATHOLOGY Performing Organization Address City/State/ZIP Code Phon e Number [facility] [address] [place] [address] Blood Type second draw (10/13/2020 3:37 PM CDT) P athologist Signature ABO O 10/13/2020 [facility] 4:02 PM CDT BLOOD BANK RH Positive 10/13/2020 [facility] 4:02 PM CDT BLOOD BANK Specimen Anatomical Collection Method / Collection Time Recei terra Time (Source) Location / Volume Laterality Blood Venipuncture / 10/13/2020 3:37 10/13/2020 3:43 Unknown PM CDT PM CDT Willy Serrano MD LAB_1 Performing Organization Address [facility] Phon e Number [facility] [address] [place] [address] (ABNORMAL) Hemoglobin, Blood (10/13/2020 2:12 PM CDT) P athologist Signature Hemoglobin 11.5 (L) 12.0 - 10/13/2020 [facility] 15.5 g/dL 2:21 PM CDT LABORATORY Specimen Anatomical Collection Method / Collection Time Recei terra Time (Source) Location / Volume Laterality Blood Venipuncture / 10/13/2020 2:12 10/13/2020 2:18 Unknown PM CDT PM CDT Nereida Simpson MD LAB_1 Performing Organization Address [facility] Phon e Number [facility] [address] [place] [address] Antibody Screen (10/13/2020 2:12 PM CDT) [facility] Method Time Signature Antibody Screen Negative 10/13/2020 [facility] Interpretation 3:36 PM CDT BLOOD BANK Specimen Anatomical Collection Method / Collection Time Recei terra Time (Source) Location / Volume Laterality Blood Venipuncture / 10/13/2020 2:12 10/13/2020 2:18 Unknown PM CDT PM CDT Nereida Simpson MD LAB_1 Performing Organization Address [facility] Phon e Number [facility] [address] [place] [address] Blood Type (10/13/2020 2:12 PM CDT) P athologist Signature ABO O 10/13/2020 [facility] 3:32 PM CDT BLOOD BANK RH Positive 10/13/2020 [facility] 3:32 PM CDT BLOOD BANK Specimen Anatomical Collection Method / Collection Time Recei terra Time (Source) Location / Volume Laterality Blood Venipuncture / 10/13/2020 2:12 10/13/2020 2:18 Unknown PM CDT PM CDT Nereida Simpson MD LAB_1 Performing Organization Address [facility]/ZIP Code Phon e Number [facility] [address] [place] [address] COVID-19 (RAPID)- emergent pre-op or AGP - one time (10/13/2020 2:05 PM CDT) [facility] Method Time Signature COVID-19 Not Detected Not 10/13/2020 [facility] Interpretation Detected 3:33 PM LABORATORY CDT Source Nasopharyngeal 10/13/2020 [facility] swab 3:33 PM LABORATORY CDT Specimen Anatomical Collection Method Collection Time Receive d Time (Source) Location / / Volume Laterality Swab (Source Non-blood 10/13/2020 2:05 PM 2:27 Required) Collection / CDT PM CDT (Nasopharyngeal Unknown swab) Narrative [facility] - 10/13/2020 3:33 P M CDT Test performed by real-time PCR. This test has been authorized by the FDA under an Emergency Use Authorization (EUA) for use by authorized laboratories. Nereida Simpson MD LAB_1 Performing Organization Address [facility] Phon e Number [facility] [address] [place] [address] [place] Pelvic Complete W EV (10/13/2020 1:03 [...] D Dimer, Quant 2.44 (H) <=0.50 10/13/2020 [facility] ug/mL FEU 10:47 AM CDT LABORATORY Specimen Anatomical Collection Method / Collection Time Recei terra Time (Source) Location / Volume Laterality Blood Venipuncture / 10/13/2020 10:29 1 Unknown AM CDT 10:32 AM CDT Narrative [facility] - 10/13/2020 10:47 AM CDT A [...] Organization Address City/State/ZIP Code Phon e Number [facility] [address] [place] [address] XR Portable Chest 1 View (10/13/2020 10:24 [...] Complete Blood Count-W/Diff (10/13/2020 8:26 AM CDT) [facility] Method Time Signature WBC 5.9 3.5 - 10.5 10/13/2020 [facility] x10(9)/L 8:38 AM CDT LABORATORY RBC 4.25 3.90 - 10/13/2020 [facility] 5.03 8:38 AM CDT LABORATORY x10(12)/L Hemoglobin 12.5 12.0 - 10/13/2020 [facility] 15.5 g/dL 8:38 AM CDT LABORATORY HCT 37.1 34.9 - 10/13/2020 [facility] 44.5 % 8:38 AM CDT LABORATORY MCV 87.3 80.0 - 10/13/2020 [facility] 100.0 fL 8:38 AM CDT LABORATORY MCH 29.4 27.6 - 10/13/2020 [facility] 33.3 pg 8:38 AM CDT LABORATORY MCHC 33.7 31.5 - 10/13/2020 [facility] 35.2 g/dL 8:38 AM CDT LABORATORY RDW 11.8 (L) 11.9 - 10/13/2020 [facility] 15.5 % 8:38 AM CDT LABORATORY Platelets 212 150 - 450 10/13/2020 [facility] x10(9)/L 8:38 AM CDT LABORATORY Automated NRBC 0 <=0 /100 10/13/2020 [facility] WBC 8:38 AM CDT LABORATORY Neutrophil 3.4 1.7 - 7.0 10/13/2020 [facility] Absolute 10(9)/L 8:38 AM CDT LABORATORY Lymphocyte 2.0 1.0 - 4.8 10/13/2020 [facility] Absolute 10(9)/L 8:38 AM CDT LABORATORY Monocytes 0.4 0.2 - 0.9 10/13/2020 [facility] Absolute 10(9)/L 8:38 AM CDT LABORATORY Eosinophil 0.1 0.0 - 0.5 10/13/2020 [facility] Absolute 10(9)/L 8:38 AM CDT LABORATORY Basophil 0.0 0.0 - 0.3 10/13/2020 [facility] Absolute 10(9)/L 8:38 AM CDT LABORATORY Immature Gran % 0.2 0.0 - 0.5 10/13/2020 [facility] % 8:38 AM CDT LABORATORY Specimen Anatomical Collection Method / Collection Time Recei terra Time (Source) Location / Volume Laterality Blood Venipuncture / 10/13/2020 8:26 10/13/2020 8:32 Unknown AM CDT AM CDT Willy Serrano MD LAB_1 Performing Organization Address City/[facility] Code Phon e Number [facility] [address] [place] [address] HCG, QUALitative, Serum (10/13/2020 8:26 AM CDT) Analysis Performed At Patho logist Time Signature HCG, Serum Negative Negative 10/13/2020 [facility] Qual 9:02 AM CDT LABORATORY Specimen Anatomical Collection Method / Collection Time Recei terra Time (Source) Location / Volume Laterality Blood Venipuncture / 10/13/2020 8:26 10/13/2020 8:32 Unknown AM CDT AM CDT Willy Serrano MD LAB_1 Performing Organization Address City/State/[facility] Phon e Number [facility] [address] [place] [address] Liver Panel (Hepatic Function Panel) (10/13/2020 8:26 AM CDT) P athologist Signature Alkaline 50 40 - 150 10/13/2020 [facility] Phosphatase U/L 9:02 AM CDT LABORATORY Bilirubin, Total 0.4 0.2 - 1.2 10/13/2020 [facility] mg/dL 9:02 AM CDT LABORATORY Bilirubin, 0.2 0.0 - 0.5 10/13/2020 [facility] Direct mg/dL 9:02 AM CDT LABORATORY AST (SGOT) 17 10 - 40 10/13/2020 [facility] U/L 9:02 AM CDT LABORATORY ALT (SGPT) 13 0 - 55 U/L 10/13/2020 [facility] 9:02 AM CDT LABORATORY Protein, Total 7.1 6.4 - 8.3 10/13/2020 [facility] g/dL 9:02 AM CDT LABORATORY Albumin 3.8 3.5 - 5.0 10/13/2020 [facility] g/dL 9:02 AM CDT LABORATORY Specimen Anatomical Collection Method / Collection Time Recei terra Time (Source) Location / Volume Laterality Blood Venipuncture / 10/13/2020 8:26 10/13/2020 8:32 Unknown AM CDT AM CDT Willy Serrano MD LAB_1 Performing Organization Address [facility] Phon e Number [facility] [address] [place] [address] Lipase (10/13/2020 8:26 AM CDT) athologist Signature Lipase 16 <=60 U/L 10/13/2020 [facility] 9:02 AM CDT LABORATORY Specimen Anatomical Collection Method / Collection Time Recei terra Time (Source) Location / Volume Laterality Blood Venipuncture / 10/13/2020 8:26 10/13/2020 8:32 Unknown AM CDT AM CDT Narrative [facility] - 10/13/2020 9:02 A M CDT Please note, reference range change effe ctive 05/20/2020 for serum Lipase performed at [facility]. Willy Serrano MD LAB_1 Performing Organization Address City/[facility] Phon e Number [facility] [address] [place] [address] Basic Metabolic Panel (10/13/2020 8:26 AM CDT) athologist Signature Sodium 139 136 - 145 10/13/2020 [facility] mmol/L 9:02 AM CDT LABORATORY Potassium 3.5 3.5 - 5.1 10/13/2020 [facility] mmol/L 9:02 AM CDT LABORATORY Chloride 103 98 - 109 10/13/2020 [facility] mmol/L 9:02 AM CDT LABORATORY CO2 28 20 - 29 10/13/2020 [facility] mmol/L 9:02 AM CDT LABORATORY Anion Gap 8 7 - 16 10/13/2020 [facility] mmol/L 9:02 AM CDT LABORATORY Calcium 9.2 8.4 - 10.4 10/13/2020 [facility] mg/dL 9:02 AM CDT LABORATORY BUN 11 7 - 26 10/13/2020 [facility] mg/dL 9:02 AM CDT LABORATORY Creatinine 0.80 0.55 - 10/13/2020 [facility] 1.02 mg/dL 9:02 AM CDT LABORATORY GFR, Estimated >60 >60 10/13/2020 [facility] mL/min/1.7 9:02 AM CDT LABORATORY 3m2 Glucose 90 70 - 100 10/13/2020 [facility] mg/dL 9:02 AM CDT LABORATORY Comment: The [...] Organization Address City/State/ZIP Code Phon e Number [facility] [address] [place] [address] ECG 12 Lead (10/13/2020 8:19 AM CDT) P athologist Signature Ventricular Rate 60 BPM [facility] Atrial Rate 60 BPM [facility] P-R Interval 180 ms [facility] QRS Duration 136 ms [facility] QT 438 ms [facility] QTc 438 ms [facility] P [place] 11 degrees [facility] R [place] 39 degrees [facility] T [place] 21 degrees [facility] Specimen (Source) Anatomical Collection Method Collection Time Re ceived Time Location / / Volume Laterality 10/13/2020 8:19 AM CDT Narrative [facility] - 10/13/2020 12:25 PM CDT Sinus rhythm Right bundle branch block Abnormal ECG When compared with ECG of 08-JUL-2020 14 :40, No significant change was found Confirmed by SILVA SERRANO ([id number]) on 12:25:04 PM Procedure Note Epic, Internal Processing - 10/13/2020Fo rmatting of this note might be different from the original. Sinus rhythm Right bundle branch block Abnormal ECG When compared with ECG of 08-JUL-2020 14 :40, No significant change was found Confirmed by SILVA SERRANO ([id number]) on 12:25:04 PM Willy Serrano MD PN ECG ORDERABLES Performing Organization Address City/State/ZIP Code Phon e Number [facility] [address] [place] [id number] documented in this encounter Visit Diagnoses Diagnosis [...] ovarian cyst Other and unspecified ovarian cyst Hemorrhagic ovarian cyst Other and unspecified ovarian cyst Hemoperitoneum Hemoperitoneum (nontraumatic) Female pelvic pain Unspecified symptom associated with fema le genital organs Triage Assessment Note - Lucila Lopes RN [...] PM 7 mL Abdominal Tissue (SENSORCAINE) 0.25% -1:[id number] CDT injection ONCE PRN, Starting on Mon10/13/20 [...] (SUBLIMAZE) injection 25-50 mcg 25-50 mcg, Intravenous, [id number], Other, 25 mcg for Mi ld to [...] (SUBLIMAZE) injection 25-50 mcg 25-50 mcg, Intravenous, [id number], Pain, Procedure, Starting on Mon10/13/20 at 1825, [...] (DEMEROL) injection 12.5 mg 12.5 mg, Intravenous, [id number], Shiverin g, Starting on Mon10/13/20 at 1825, Until Mon10/14/20 at 0056, For 2 doses, Maximum cumulative dose is 25 mg. Do not give to patients receiving MAO inhibitors (e.g. phenelzine (NA RDIL), tranylcypromine (PARNATE), selegiline (ELDEPRYL))., PACU/Recovery midazolam (VERSED) injection 1-2 mg 1-2 mg, Intravenous, [id number], Sedation, Anxiety, Procedure, Starting on Mon10/13/20 at [...] (OCEAN) 0.65 % nasal scott ution 1 Geneva 1 [place], Both Nostrils, Q2H PRN, Dry Nos e, [...] (Given - Provider: Chris Keith - Comment: [id number]) 100 mL, Intravenous, ONCE, On Mon10/13/20 at 1130, For 1 dose, Ra diology iopamidol (ISOVUE-370) 76 % injection 100 mL (COMPLETED) 1119 (Given - Provider: Juany Larios - Comment: [id number]) 100 mL, Intravenous, ONCE, On Mon10/13/20 at 1145, For 1 dose, Ra diology ketorolac (TORADOL) injection 15 mg (COMPLETED) 1026 (Given - Provider: Giancarlo Sandoval, MIREILLE) 15 mg, Intravenous, ONCE, On Mon10/13/20 at 1045, For 1 dose NO pre-op antibiotics needed 175 6 (Noted - Provider: Virginie Kessler RN)1757 (JUN Hold - Provider: Automatichold - Reason: Other (Enter Reason in Comment Area)) ONCE, On Mon10/13/20 at 1715, For 1 dose, Pre-op prochlorperazine (COMPAZINE) injection 5 mg (COMPLETED) 2134 (Given - Provider: Concha Lora RN) 5 mg, Intravenous, ONCE, On Mon10/13/20 at 2130, For 1 dose sodium chloride 0.9% bolus 100 mL (COMPLETED) 1119 (Started - Provider: Juany Larios)1219 (Due: Infused - Provider: Juany Larios) 100 mL, Intravenous, Administer over 1 H ours, ONCE, On Mon10/13/20 at 1145, For 1 dose, Radiology sodium chloride 0.9% infusion (COMPLETED) 0827 (Started - Provider: Giancarlo Sandoval, MIREILLE)1021 (Infused - Provider: Giancarlo Sandoval RN) 1,000 mL, Intravenous, at 1,000 mL/hr, ONCE, [...] Order 10/11/2020 10/12/2020 10/13/2020 lactated ringers infusion 1817 ( Started - Provider: Virginie Kessler RN)183 (Stopped - Provider: Saba Field APRN, BANDAR - Comment: Switch to gravity)184 (Restarted - Provider: Saba Field APRN, BANDRA)1958 (Anesthesia Fluid - Provider: Saba Field APRN, BANDAR) 25 mL/hr, Intravenous, at 25 mL/hr, CONT [...] on Mon10/13/20 at 1437 bupivacaine-epinephrine (SENSORCAINE) 0.25% -1:[id number] injection 2007 (Given - Provider: Nereida Simpson [...] (SUBLIMAZE) injection 25-50 mcg 25-50 mcg, Intravenous, [id number], Other, 25 mcg for Mild to Moderate [...] (SUBLIMAZE) injection 25-50 mcg 25-50 mcg, Intravenous, [id number], Pain, Procedure, Starting on Mon10/13/20 at 1825, [...] off., PACU/Recovery HYDROmorphone (DILAUDID) injection 0.2-1 mg 1720 (Given - Provider: Lucila Lopes RN)1756 (JUN [...] (DEMEROL) injection 12.5 mg 12.5 mg, Intravenous, [id number], Shiverin g, Starting on Mon10/13/20 at 1825, For 2 doses, Maximum cumulative dose is 25 mg. Do not give to patients receiving MAO inhibitors (e.g. phenelzine (NARDIL), matta ylcypromine (PARNATE), selegiline (ELDEPRYL))., PACU/Recovery midazolam (VERSED) injection 1-2 mg 1-2 mg, Intravenous, [id number], Sedation, Anxiety, Procedure, Starting on Mon10/13/20 at [...] chloride (OCEAN) 0.65 % nasal solution 1 [place] 1756 (JUN Hold - Provider: Automatichold - Reason: Other (Enter Reason in Comment Area)) 1 [place], Both Nostrils, Q2H PRN, Dry Nose, Starting on Mon 1 at 1437 sodium chloride 0.9% injection 10-60 mL 1756 ([facility] Hold - Provider: Automatichold - Reason: [...] (COMPLE RICK) 1027 (Given - Provider: Giancarlo Sandoval, RN) Starting on Mon10/13/20 at 1023, For 1 dose, Giancarlo Sandoval: cabi net override documented in this encounter Care Teams High Climber Relationship Specialty Start Date End Date John Stokes MD PCP - General Family Practice 07/08/20 07/14/21 REPLACED BY [facility] [address] [place] [address] documented as of this encounter
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
--- OUTSIDE RECORDS SUMMARY | 2022-01-20 19:51 | XMS_ITS | Encounter Summary ---
:1995 Author Organization [facility] Address [address] [place] [address] Care Team Providers Name Role Phone No Primary/Referring, Phy Primary Care Provider Unavailable Reason for Visit Procedure/Equipment (Routine) - Incomplete Specialty Diagnoses / Procedures Referred By Contact Refer red To Contact Diagnoses Abdominal pain, generalized Michael Carlson, PA-C Procedures XR Abd 2 Views Routine [address] [place], [place] [address] Referral ID Status Reason Start Date Expiration Date Visits V isits Requested Authorized [id number] Incomplete 05/21/2016 08/20/2017 1 1 Encounter Details Date Type Department Care Team Description 05/21/2016 Imaging [facility] Michael Plata, Isabel bdominal pain, Radiology PA-C generalized [address] [facility]. [address] [place], [place] [address] [place], [place] [phone] (Wo rk) Social History Tobacco Use Types Packs/Day Years Used Date Smoking Tobacco: Never Sex Assigned at Date Recorded Female 10/26/2020 7:23 AM CDT documented as of this encounter Plan of Treatment Not on filedocumented as of this encounter Procedures Procedure Name Priority Date/Time Associated Diagnosis Comme nts XR ABD 2 VIEWS STAT 05/21/2016 4:30 PM Abdominal pain, Resu lts for this ROUTINE CORPORATE COMPLIANCE DIRECTOR generalized procedure are i n the results section. documented in this encounter Results XR Abd 2 Views Routine (05/21/2016 4:30 PM CORPORATE COMPLIANCE DIRECTOR) Anatomical Region Laterality Modality Abdomen Computed Radiography Specimen (Source) Anatomical Collection Method Collection Time Re ceived Time Location / / Volume Laterality 05/21/2016 4:30 PM CORPORATE COMPLIANCE DIRECTOR Narrative 05/21/2016 5:01 PM CORPORATE COMPLIANCE DIRECTOR XR ABD 2 VIEWS ROUTINE 05/21/2016 4:30 [...] be due to atelectasis or infiltrate. Michael Carlson PA-C RAD GD documented in this encounter Visit Diagnoses Diagnosis Abdominal pain, generalized documented in this encounter Care Teams Supervisor [employer] Relationship Specialty Start Date End Date No Primary/Referring, Phy PCP - General 05/21/16 documented as of this encounter
[2022-01-20 20:12] VITALS: BP 135/78; PULSE 89; RESP 18; TEMP 36.6; O2SAT 99
[2022-01-20 20:13] VITALS: BP 135/78; PULSE 89; RESP 18; TEMP 36.6
== END 2022-01-20 20:13 | disposition home or self-care (01) ==
LOC: ED 19:42
PROVIDERS: Emergency Provider Emergency Medicine Emergency Medical Services
DX: G89.18 Other acute postprocedural pain (principal)
CPT/HCPCS: 94761; 96372; 99284; J2270

== ENCOUNTER 2022-03-28 12:00 | Outpatient (CLI) | payer BC, MEDICAID, SELFPAY ==
[2022-03-28 14:03] LABS: Chlamydia DNA Amplified* NOT DETECTED (No Detected); GC DNA Amplified* NOT DETECTED (No Detected)
== END 2022-03-28 12:01 | disposition home or self-care (01) ==
LOC: NFLDREF 12:01
PROVIDERS: Visit Provider Obstetrics & Gynecology
DX: R10.2 Pelvic and perineal pain (principal)
CPT/HCPCS: 87086; 87491; 87591

== ENCOUNTER 2022-03-29 15:00 | Outpatient (CLI) | payer BC, MEDICAID, SELFPAY ==
--- NOTE | 2022-03-29 15:00 | CRLHL7_ITS ---
For Patients: As a result of the Century Cures Act, medical imaging exams and procedure reports are released immediately into your electronic medical record. You may view this report before your referring provider. If you have questions, please contact your health care provider. INDICATION: RT PELVIC PAIN, H/O LT Oophorectomy (12/30) AFTER OVARIAN CYST W/TORSION COMPARISON: none TECHNIQUE: 2D hess scale and color Doppler images were acquired of the pelvis using a transabdominal and transvaginal approach. Doppler evaluation of the right ovary also performed. FINDINGS: Sonographic images demonstrate a normal size and smooth outer contour of the uterus. Uterus measures 8.5 cm in length by 3.8 cm in AP diameter by 4.1 cm in transverse dimension. The myometrium has a normal uniform echotexture. The endometrial lining appears normal and measures 3 mm in composite thickness. Small incidental cervical nabothian cysts are present. The left ovary is absent. The right ovary measures 6.7 x 3.4 x 5.3 cm. A simple right ovarian cyst is present measuring 5.1 x 3.8 x 4.6 cm. Normal power Doppler evaluation of the right ovary. The right ovary demonstrates normal arterial and venous blood flow on color Doppler analysis. There are no suspicious fluid collections within the cul-de-sac. IMPRESSION: 5.1 cm simple right ovarian cyst without sonographic evidence of torsion. Dictated by Danny Campa MD @ 03/30/2022 11:00:12 AM (Electronically Signed)
== END 2022-03-29 15:01 | disposition home or self-care (01) ==
PROVIDERS: Visit Provider Obstetrics & Gynecology
DX: R10.2 Pelvic and perineal pain (principal); N83.201 Unspecified ovarian cyst, right side
CPT/HCPCS: 76830; 76856; 93976

== ENCOUNTER 2022-05-14 00:11 | Emergency (ER) | payer BC, MEDICAID, SELFPAY ==
--- NOTE | 2022-05-14 00:18 | CRLHL7_ITS ---
For Patients: As a result of the Century Cures Act, medical imaging exams and procedure reports are released immediately into your electronic medical record. You may view this report before your referring provider. If you have questions, please contact your health care provider. INDICATION: Right lower quadrant pain. TECHNIQUE: CT abdomen and pelvis acquired with 93 cc Isovue 370 IV contrast. COMPARISON: None. FINDINGS: Lower chest: Scattered dependent atelectasis. Liver: Unremarkable. Normal in size and attenuation. No suspicious masses. Gallbladder and bile ducts: Unremarkable. No stones or inflammation. No biliary dilatation. Pancreas: Unremarkable. No mass or inflammation. Spleen: Unremarkable. Normal in size. No masses. Adrenal glands: Unremarkable. No nodules. Kidneys: Unremarkable. No suspicious masses, stones, or hydronephrosis. GI tract: Unremarkable. Normal in caliber. No sign of mass or inflammation. Normal appendix. Vasculature: Abdominal aorta is normal in caliber. Mesenteric arteries are patent. Lymph nodes: No lymphadenopathy. Peritoneum/Abdominal Wall: Unremarkable. No sign of mass or infiltration. No free air or significant free fluid. Pelvis: Unremarkable. Bones: Similar T12 butterfly vertebra. IMPRESSION: No acute intra-abdominal/pelvic abnormality, including appendicitis as questioned. Please note that all CT scans at this facility use dose modulation, iterative reconstruction, and/or weight-based dosing when appropriate to reduce radiation dose to as low as reasonably achievable. Dictated by Leo Viramontes MD @ 05/14/2022 1:04:59 AM (Electronically Signed)
[2022-05-14 00:19] VITALS: BP 127/85; PULSE 86; RESP 20; TEMP 37.1; O2SAT 98; BMI 31.3
--- NOTE | 2022-05-14 00:19 | ED_ITS ---
HPI - Abdominal Pain General Chief Complaint: Abdominal Pain Stated Complaint: large ovarian cyst that hurts. Time Seen by Provider: 05/14/22 00:18 History of Present Illness HPI narrative: Pt is a 26 year old woman with a long history of ovarian cysts who presents with r sided abdominal and pelvic pain. Pt has had no fever or chills. She states that she is note . Pt has had no dysuria or vaginal discharge. Pain is again located in the low abd or pelvis on the right. Pain is severe and sharp but does not radiate. Pt otherwise feeling well. No nausea, vomiting, fevers or chills. Pain is chronic but has escalated for the past several days worsening today. Related Data Home Medications Medication Instructions Recorded Confirmed bupropion HCl 150 mg 24 hr tablet, 300 mg PO QDAY 04/19/22 04/19/22 extended release metformin 500 mg tablet 1,000 mg PO QDAY 04/19/22 04/19/22 tizanidine 4 mg capsule 8 mg PO DAILY 04/19/22 04/19/22 Previous Rx's Medication Instructions Recorded oxycodone 5 mg tablet 5 - 10 mg PO Q4-6H PRN 4 OR 01/20/22 GREATER ON PAIN SCALE #15 tabs norethindrone 0.4 mg-ethinyl 1 tab PO QDAY #168 tabs 04/22/22 estradiol 35 mcg tablet (Ida (28)) oxycodone 5 mg tablet 5 mg PO Q6H PRN pain #7 tabs 04/27/22 Allergies Allergy/AdvReac Type Severity Reaction Status Date / Time topiramate [From Topamax] AdvReac Severe Unknown Verified 05/14/22 00:23 drospirenone AdvReac Mild Headache Verified 05/14/22 00:23 [From Faustina (21)] ethinyl estradiol AdvReac Mild Headache Verified 05/14/22 00:23 [From Faustina (21)] Review of Systems Status of ROS Reports: 10 or more systems reviewed and unremarkable except as noted in History and below PFSH PFSH Medical History Depression Migraine Surgical History History of laparoscopy History of tetralogy of Fallot repair Family History Maternal Grandmother Stroke Aunt Colon cancer Aunt Breast cancer, Onset Age: 40 Family/Other Diabetes 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 Nonsmoker. No alcohol use. No illicit drug use. No concerns with safety or abuse. Smoking Status: Never smoker Do you use any of these nicotine containing products: None How often do you have a drink containing alcohol: never How often do you have six or more drinks on one occasion: Never AUDIT-C Alcohol total score: 0 Non-prescribed substance use: denies use Caffeine: No Are you using contraception or practicing any form of control: Yes Exam Narrative: Exam Narrative: EXAM GENERAL: Patient appears comfortable and well. EYES: No scleral icterus. THYROID: no thyroid nodules or thyromegaly. LYMPH: No supraclavicular or cervical lymphadenopathy. SKIN: Visible skin seen during exam normal or with benign process only. EXT: No dependent lower extremity pedal edema. HEART: RR with 3/6 systolic murmur. LUNGS: Clear to auscultation bilaterally with no crackles or wheezes. ABD: Soft, non tender, non distended. PSYCH: Good eye contact, speech is not pressured. Const: Vital Signs, click to edit/add: Vital Signs - 24 hr 05/14/22 00:19 Temperature 98.8 F Pulse Rate [Right Pulse Oximeter] 86 Respiratory Rate 20 Blood Pressure [Ri ght Upper Arm] 127/85 Pulse Oximetry 98 Oxygen Delivery Me thod Room Air Course Course Hospital Course: Pt seen and examined. CT of abd and pelvis ordered. CBC, CMP, Amylase urinalysis also collected. 30 mg of IV Toradol given. Reevaluation(s) Reevaluation #1: Labs and CT reassuring. Pt feeling mildly improved after IM Toradol Time: 01:17 Vital Signs Vital signs: Initial Vital Signs Temperature 98.8 F 05/14/22 00:19 Temperature Source Temporal Artery Scan 05/14/22 00:19 Pulse Rate 86 05/14/22 00:19 Pulse Rhythm 05/14/22 00:19 Pulse Strength 3+ Normal 05/14/22 00:19 Respiratory Rate 20 05/14/22 00:19 Blood Pressure 127/85 05/14/22 00:19 Blood Pressure Mean 99 05/14/22 00:19 Blood Pressure Position Sitting 05/14/22 00:19 Pulse Oximetry 98 05/14/22 00:19 Oxygen Delivery Method 05/14/22 00:19 Vital Signs Temperature 98.8 F 05/14/22 00:19 Pulse Rate 86 05/14/22 00:19 Respiratory Rate 20 05/14/22 00:19 Blood Pressure 127/85 05/14/22 00:19 Pulse Oximetry 98 05/14/22 00:19 Oxygen Delivery Method 05/14/22 00:19 Temperature 98.8 F 05/14/22 00:19 Pulse Rate 86 05/14/22 00:19 Respiratory Rate 20 05/14/22 00:19 Blood Pressure 127/85 05/14/22 00:19 Pulse Oximetry 98 05/14/22 00:19 Oxygen Delivery Method 05/14/22 00:19 MDM - Abdominal Pain MDM Narrative Medical decision making narrative: Pt with a history of chronic pelvic pain felt related to ovarian cyst presents with worsening of right sided low pelvic pain. Pt has no other symptoms. Normal exam and vital signs. CT and labs reassuring. Pt has a prescription for Ox ycodone from [facility] for breakthrough pain. Encouraged to take these as directed Will contact [facility] on monday. Does have US scheduled for later this week. Note written to excuse pt from work over the weekend. Differential Diagnosis Differential diagnosis: Likely abdominal pain, acute appendicitis, calculus of kidney, constipation, diverticulitis, endometriosis, gastroenteritis, pancreatitis and small bowel obstruction Medical Records Attestation: I reviewed the patient's medical records. Lab Data Labs: Lab Results 05/14/22 05/14/22 05/14/22 Range/Units 00:18 00:33 00:33 WBC 9.43 (4.50-11.00) K/uL RBC 4.17 (4.00-5.20) m/uL Hgb 12.3 (12.0-16.0) gm/dL Hct 37.5 (33.0-51.0) % MCV 90 (80-100) fL MCH 30 (26-34) pg MCHC 33 (32-36) gm/dL RDW Coeff of Silas 11.9 (11.5-15.5) % Plt Count 287 (140-440) K/uL Neut % (Auto) 72.0 (42.0-72.0) % Lymph % (Auto) 20.8 (20-44) % Cataño % (Auto) 6.2 (0.0-11.0) % Eos % (Auto) 0.5 (0.0-7.0) % Baso % (Auto) 0.2 (0.0-3.0) % Neut # (Auto) 6.79 (1.7-7.0) K/uL Lymph # (Auto) 1.96 (0.90-2.90) K/uL Cataño # (Auto) 0.60 (0.00-0.90) K/UL Eos # (Auto) 0.05 (0.00-0.50) K/uL Baso # (Auto) 0.02 (0.00-0.30) K/uL Sodium 139 (135-149) mmol/L Potassium 3.9 (3.6-5.1) mmol/L Chloride 105 (96-114) mmol/L Carbon Dioxide 25 (20-32) mmol/L BUN 17 (5-24) mg/dL Creatinine 1.0 (0.5-1.5) mg/dL Estimated Creat Clear 84.36 Estimated GFR 81 ml/min Glucose 90 (60-115) mg/dL Calcium 9.3 (8.4-10.6) mg/dL Total Bilirubin 0.6 (0.1-1.5) mg/dL AST 36 H (12-35) U/L ALT 53 H (4-35) U/L Alkaline Phosphatase 60 (40-150) U/L Total Protein 8.4 H (6.0-8.3) g/dL Albumin 4.6 (3.3-5.0) g/dL Amylase 63 (18-89) U/L Urine Color Yellow (Yellow) Urine Appearance Clear (Clear) Urine pH 5.5 (5.0-8.5) Ur Specific [place] >= 1.030 (1.000-1.030) Urine Protein 1+ A (Negative) Urine Glucose (UA) Negative (Negative) Urine Ketones Negative (Negative) Urine Blood 3+ A (Negative) Urine Nitrite Negative (Negative) Urine Bilirubin Negative (Negative) Urine Urobilinogen 0.2 (0.2-1.0) Ur Leukocyte Esterase Trace A (Negative) Urine RBC 10-25 A (0-2) Urine WBC 10-25 A (0-5) Ur Squamous Epith Cells Few (None-Few) Urine Bacteria Few A (None) Discharge Plan Discharge Clinical Impression: Abdominal pain Condition: Stable Instructions: Abdominal Pain (ED) Additional Instructions: Pain control as discussed Follow up with [facility] Activity Level: No Restrictions Discharge Diet: Regular Prescriptions: No Action tizanidine 4 mg capsule 8 mg PO DAILY bupropion HCl 150 mg tablet extended release 24 hr 300 mg PO QDAY metformin 500 mg tablet 1,000 mg PO QDAY Label Comments: TAKE 1 TABLET BY MOUTH DAILY WITH BREAKFAST. Ida (28) 0.4-35 mg-mcg tablet 1 tab PO QDAY Qty: 168 0RF oxycodone 5 mg Tablet 5 - 10 mg PO Q4-6H PRN (Reason: 4 OR GREATER ON PAIN SCALE) Qty: 15 0RF oxycodone 5 mg tablet 5 mg PO Q6H PRN (Reason: pain) Qty: 7 0RF Follow Up/Referrals: Catherine Santiago MD [Primary Care Provider] - Stand Alone Forms: [facility] Info Instructions
[2022-05-14 00:46] LABS: Basophils Absolute Auto 0.02 K/uL (0.00-0.30); Basophils Percent Auto 0.2 % (0.0-3.0); Eosinophils Absolute Auto 0.05 K/uL (0.00-0.50); Eosinophils Percent Auto 0.5 % (0.0-7.0); Hematocrit 37.5 % (33.0-51.0); Hemoglobin* 12.3 gm/dL (12.0-16.0); Immature Granulocytes Abs Auto 0.03 K/uL (0.00-0.30); Immature Granulocytes Pct Auto 0.3 %; Lymphocytes Absolute Auto 1.96 K/uL (0.90-2.90); Lymphocytes Percent Auto 20.8 % (20-44); Mean Corpuscular HGB Conc 33 gm/dL (32-36); Mean Corpuscular Hemoglobin 30 pg (26-34); Mean Corpuscular Volume 90 fL (80-100); Monocytes Percent Auto 6.2 % (0.0-11.0); Neutrophils Absolute Auto 6.79 K/uL (1.7-7.0); Platelet Count* 287 K/uL (140-440); RDW Coefficient of Variation % 11.9 % (11.5-15.5); Red Blood Count 4.17 m/uL (4.00-5.20); Slide Review Reflex No; White Blood Count* 9.43 K/uL (4.50-11.00)
[2022-05-14] MEDS: KETOROLAC 30 MG/ML inj IVP (00:49)
[2022-05-14 00:52] LABS: Albumin* 4.6 g/dL (3.3-5.0); Chloride* 105 mmol/L (96-114)
[2022-05-14 00:53] LABS: Potassium* 3.9 mmol/L (3.6-5.1); Sodium* 139 mmol/L (135-149)
[2022-05-14 00:55] LABS: Alkaline Phosphatase* 60 U/L (40-150); Amylase* 63 U/L (18-89); Aspartate Amino Transferase* 36 U/L (12-35); Bilirubin Total* 0.6 mg/dL (0.1-1.5); Blood Urea Nitrogen* 17 mg/dL (5-24); Carbon Dioxide* 25 mmol/L (20-32); Est. Creatinine Clearance* 84.36; Estimated Glomerular Filt Rate 81 ml/min; Total Protein* 8.4 g/dL (6.0-8.3)
[2022-05-14 00:56] LABS: Alanine Aminotransferase* 53 U/L (4-35); Calcium* 9.3 mg/dL (8.4-10.6); Glucose* 90 mg/dL (60-115)
[2022-05-14 01:02] LABS: Appearance Urine Clear (Clear); Bilirubin Urine Negative (Negative); Blood Urine 3+ (Negative); Color Urine Yellow (Yellow); Glucose Urine Negative (Negative); Ketones Urine Negative (Negative); Leukocyte Esterase Urine Trace (Negative); Nitrite Urine Negative (Negative); Protein Urine 1+ (Negative); Specific Gravity Urine >= 1.030 (1.000-1.030); Urobilinogen Urine 0.2 (0.2-1.0); pH Urine 5.5 (5.0-8.5)
[2022-05-14 01:09] LABS: Bacteria Urine Few; Squamous Epithelial Cell Urine Few (None-Few)
== END 2022-05-14 01:52 | disposition home or self-care (01) ==
PROVIDERS: Emergency Provider Internal Medicine; PCP Obstetrics & Gynecology
DX: R10.9 Unspecified abdominal pain (principal)
CPT/HCPCS: 36415; 74177; 80053; 81003; 81015; 82150; 85025; 87086; 96374; 99283; 99284; J1885; Q9967

== ENCOUNTER 2022-05-17 08:11 | Outpatient (CLI) | payer BC, MEDICAID, SELFPAY ==
--- NOTE | 2022-05-17 08:15 | CRLHL7_ITS ---
For Patients: As a result of the Century Cures Act, medical imaging exams and procedure reports are released immediately into your electronic medical record. You may view this report before your referring provider. If you have questions, please contact your health care provider. INDICATION: Pelvic pain COMPARISON: 03/29/2022 TECHNIQUE: 2D hess scale and color Doppler images were acquired of the pelvis using a transabdominal and transvaginal approach. Power Doppler evaluation of the right ovary also performed. FINDINGS: Sonographic images demonstrate a normal size and smooth outer contour of the uterus. Uterus measures 6.9 cm in length by 4.3 cm in AP diameter by 5.9 cm in transverse dimension. The myometrium has a normal uniform echotexture. The endometrial lining appears normal and measures 3 mm in composite thickness. The right ovary measures 4.3 x 1.9 x 1.9 cm in size and the left ovary is absent. The right ovary demonstrates normal arterial and venous blood flow on color Doppler analysis. Normal power Doppler evaluation of the right ovary. There are no suspicious fluid collections within the cul-de-sac. IMPRESSION: Resolution of previously noted right ovarian cyst. No torsion. No adnexal mass or free fluid. No uterine fibroid. Dictated by Danny Campa MD @ 05/17/2022 10:56:04 AM (Electronically Signed)
== END 2022-05-17 08:12 | disposition home or self-care (01) ==
LOC: US 08:11
PROVIDERS: PCP Obstetrics & Gynecology; Visit Provider Obstetrics & Gynecology
DX: R10.2 Pelvic and perineal pain (principal)
CPT/HCPCS: 76830; 76856; 93976

== ENCOUNTER 2022-07-09 20:46 | Emergency (ER) | payer BC, MEDICAID, SELFPAY ==
[2022-07-09 20:59] VITALS: BP 115/77; PULSE 98; RESP 16; TEMP 36.6; O2SAT 97; BMI 31.3
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
== END 2022-07-09 22:49 | disposition home or self-care (01) ==
LOC: ED 22:13
PROVIDERS: Emergency Provider Family Medicine; PCP Obstetrics & Gynecology
DX: M54.9 Dorsalgia, unspecified (principal)
CPT/HCPCS: 99283

== ENCOUNTER 2022-11-01 00:25 | Emergency (ER) | payer MEDICAID, SELFPAY ==
[2022-11-01] VITALS (7 sets, daily range): BP systolic 108–117; BP diastolic 72–77; PULSE 62–70; RESP 16; TEMP 36.6; O2SAT 97–98; BMI 31.3
--- NOTE | 2022-11-01 00:57 | ED_ITS ---
HPI - General Adult General Date Seen: 11/01/22 Chief complaint: Abdominal Pain Stated complaint: abdominal pain Time Seen by Provider: 11/01/22 00:26 Source: patient Mode of arrival: ambulatory Limitations: no limitations History of Present Illness HPI narrative: Patient is a 26-year-old with underlying chronic pelvic pain, recently started on Orlissa with good results, and now with a presumptive diagnosis of endometriosis. She also has underlying ulcerative colitis, which she says is mild and most of the time she does not take anything. She says she is having a little bit of a flare now and so she is using mesalamine suppositories. She says for the past couple of days she has been having menstrual cramps which are unusual for her since age 17. Every once in a while she has a sharp pain that doubles her over. She also says that she is having flow floor attendant bleeding than usual and she had sex earlier and it smelled like ?straight iron which concerned her given that she is not having heavy bleeding. She was off of her Orlissa and control pills last month for a couple of weeks as she ran out of them, she has since restarted them. She called the nurse line shiva and was told to come in. Pain is in the right lower abdomen in the typical spot for her chronic abdominal pain. Related Data Home Medications Medication Instructions Recorded Confirmed bupropion HCl 150 mg 24 hr tablet, 300 mg PO QDAY 04/19/22 08/16/22 extended release metformin 500 mg tablet 1,000 mg PO QDAY 04/19/22 08/16/22 tizanidine 4 mg capsule 8 mg PO DAILY 04/19/22 08/16/22 Previous Rx's Medication Instructions Recorded norethindrone 0.4 mg-ethinyl 1 tab PO QDAY #168 tabs 04/22/22 estradiol 35 mcg tablet (Balziva (28)) oxycodone 5 mg tablet 5 mg PO Q6H PRN pain #7 tabs 04/27/22 elagolix 150 mg tablet (Orilissa) 150 mg PO QDAY #30 tabs 10/21/22 Allergies Allergy/AdvReac Type Severity Reaction Status Date / Time topiramate [From Topamax] AdvReac Severe Unknown Verified 08/16/22 08:43 drospirenone AdvReac Mild Headache Verified 08/16/22 08:43 [From Faustina (21)] ethinyl estradiol AdvReac Mild Headache Verified 08/16/22 08:43 [From Faustina (21)] Review of Systems Status of ROS: Reports: 10 or more systems reviewed and unremarkable except as noted in History and below [facility] Medical History Migraine ?G43.909 - Migraine, unspecified, not intractable, without status migrainosus (ICD-10) Depression ?F32.A - Depression, unspecified (ICD-10) Surgical History History of laparoscopy ?Z98.890 - Other specified postprocedural states (ICD-10) History of tetralogy of Fallot repair ?Z87.74 - Personal history of (corrected) congenital malformations of heart and circulatory system (ICD-10) Family History Maternal Grandmother Stroke Aunt Colon cancer Aunt Breast cancer, Onset Age: 40 Family/Other Diabetes 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 Exercises 3 days a week. Nonsmoker. No alcohol use. No illicit drug use. No concerns with safety or abuse. Smoking Status: Never smoker Do you use any of these nicotine containing products: None Second hand tobacco smoke exposure: No How often do you have a drink containing alcohol: never How often do you have six or more drinks on one occasion: Never AUDIT-C Alcohol total score: 0 Non-prescribed substance use: denies use Caffeine: No Are you using contraception or practicing any form of control: Yes service: No Exam Narrative: Exam Narrative: Vital signs as noted above. In general, an alert, well-appearing patient. She looks comfortable. Head: Normocephalic, atraumatic. Eyes: Pupils are equal reactive. Extraocular movements are full. Conjunctivae are normal. ENT: Mucous membranes are moist. Throat is normal. Neck: Supple without lymphadenopathy. Heart: Regular rate and rhythm. Systolic murmur heard best at the left sternal border, this is chronic per patient. Lungs: Clear bilaterally. No increased work of breathing, crackles or wheezes. No CVA tenderness. Abdomen: Soft and seems fairly nontender. She says when asked that it is tender in the right lower abdomen. No rebound guarding or rigidity. Pelvic: Patient declines pelvic exam, she says she does not have any concerns about STDs and declines testing. Extremities: Well perfused. No edema. No calf tenderness. Pulses intact. Neurologic: Patient is alert and oriented to person and place. Speech is fluent. Face is symmetric. Moves all extremities equally. Affect: Normal. Skin: Warm and dry. Well perfused. Const: Vital Signs, click to edit/add: Vital Signs - 24 hr 11/01/22 00:41 11/01/22 01:13 11/01/22 01:15 Temperature 97.9 F Pulse Rate 70 65 Pulse Rate [Left P ulse Oximeter] 64 Respiratory Rate 16 Blood Pressure Blood Pressure [Ri ght Upper Arm] 117/77 Pulse Oximetry 98 98 97 Oxygen Delivery Me thod Room Air Room Air 11/01/22 01:30 11/01/22 01:31 11/01/22 01:32 Temperature Pulse Rate 62 62 64 Pulse Rate [Left P ulse Oximeter] Respiratory Rate Blood Pressure 108/72 Blood Pressure [Ri ght Upper Arm] Pulse Oximetry 97 98 98 Oxygen Delivery Me thod 11/01/22 01:45 Temperature Pulse Rate 62 Pulse Rate [Left P ulse Oximeter] Respiratory Rate Blood Pressure Blood Pressure [Ri ght Upper Arm] Pulse Oximetry 97 Oxygen Delivery Me thod Documenting provider has reviewed patient's vital signs: yes Course Course Hospital Course: Diagnostic considerations include urinary tract infection, PID, appendicitis, endometriosis, ovarian cyst, ectopic , ulcerative colitis, ovarian torsion, among others. Given that symptoms are typical of her chronic pelvic pain, my suspicion is that she is having increased symptoms secondary to being off her medications. However, I did check some basic labs as well as UA. Her white blood cell count is reassuringly normal at 4.5 with an unremarkable diff. metabolic panel is normal, LFTs are within normal limits with the exception of an ALT of 41. She has had mild elevations in transaminases before. A UA shows 3+ blood, 0-2 red cells, I do think she probably has some contamination as she has many squames, moderate mucus and bacteria. She declined pelvic exam, she states she has only the 1 partner and she does not have any concerns about exposure to anything. She is not febrile or toxic, with a benign exam and normal labs my suspicion for PID is rather low. No evidence of urinary tract infection, test is negative. She did request pain medication here and I gave her an oxycodone. I reviewed her account on the prescription monitoring database, she has a small number of prior prescriptions for oxycodone, most recently back in September when she says another ovarian cyst was found. For tonight, I do not think she needs imaging. There is a possibility of ovarian cyst, but I do not think this is going to change our management. She has had pain which is mild to moderate in intensity for 2 days, my suspicion of torsion is very low. She requested a note for missing work yesterday and will miss work also today. Was provided. For worsening or more severe pain, fever, vomiting or other changes, return to the emergency department. Otherwise, I would recommend Tylenol 3 times daily for the next couple of days. I gave her oxycodone, smallest number available out of [facility] was 10. If not improving over the next couple of days, OB Gyne follow-up. Vital Signs Vital signs: Initial Vital Signs Temperature 97.9 F 11/01/22 00:41 Temperature Source Temporal Artery Scan 11/01/22 00:41 Pulse Rate 64 11/01/22 00:41 Respiratory Rate 16 11/01/22 00:41 Blood Pressure 117/77 11/01/22 00:41 Blood Pressure Mean 90 11/01/22 00:41 Blood Pressure Position Sitting 11/01/22 00:41 Pulse Oximetry 98 11/01/22 00:41 Oxygen Delivery Method Room Air 11/01/22 00:41 Vital Signs Temperature 97.9 F 11/01/22 00:41 Pulse Rate 64 11/01/22 00:41 Respiratory Rate 16 11/01/22 00:41 Blood Pressure 117/77 11/01/22 00:41 Pulse Oximetry 98 11/01/22 00:41 Oxygen Delivery Method Room Air 11/01/22 00:41 Temperature 97.9 F 11/01/22 00:41 Pulse Rate 62 11/01/22 01:45 Respiratory Rate 16 11/01/22 00:41 Blood Pressure 108/72 11/01/22 01:31 Pulse Oximetry 97 11/01/22 01:45 Oxygen Delivery Method Room Air 11/01/22 01:13 Medical Decision Making Lab Data Labs: Lab Results 11/01/22 11/01/22 Range/Units 00:45 01:10 WBC 4.51 (4.50-11.00) K/uL RBC 4.21 (4.00-5.20) m/uL Hgb 12.2 (12.0-16.0) gm/dL Hct 37.1 (33.0-51.0) % MCV 88 (80-100) fL MCH 29 (26-34) pg MCHC 33 (32-36) gm/dL RDW Coeff of Silas 11.8 (11.5-15.5) % Plt Count 224 (140-440) K/uL Neut % (Auto) 43.9 (42.0-72.0) % Lymph % (Auto) 46.6 H (20-44) % Grant % (Auto) 6.9 (0.0-11.0) % Eos % (Auto) 2.2 (0.0-7.0) % Baso % (Auto) 0.2 (0.0-3.0) % Neut # (Auto) 1.98 (1.7-7.0) K/uL Lymph # (Auto) 2.10 (0.90-2.90) K/uL Grant # (Auto) 0.30 (0.00-0.90) K/UL Eos # (Auto) 0.10 (0.00-0.50) K/uL Baso # (Auto) 0.01 (0.00-0.30) K/uL Abs Immat Gran (auto) 0.01 (0.00-0.30) K/uL Imm/Tot Granulo (auto) 0.2 % Sodium 140 (135-149) mmol/L Potassium 3.6 (3.6-5.1) mmol/L Chloride 102 (96-114) mmol/L Carbon Dioxide 28 (20-32) mmol/L BUN 17 (5-24) mg/dL Creatinine 0.8 (0.5-1.5) mg/dL Estimated Creat Clear 105.45 Estimated GFR 105 ml/min Glucose 94 (60-115) mg/dL Calcium 8.7 (8.4-10.6) mg/dL Total Bilirubin 0.3 (0.1-1.5) mg/dL Direct Bilirubin 0.0 (0.0-0.5) mg/dL AST 32 (12-35) U/L ALT 41 H (4-35) U/L Alkaline Phosphatase 49 (40-150) U/L C-Reactive Protein 0.8 (0.5-1.0) mg/dL Total Protein 7.6 (6.0-8.3) g/dL Albumin 4.3 (3.3-5.0) g/dL Urine Color Yellow (Yellow) Urine Appearance Cloudy A (Clear) Urine pH 5.5 (5.0-8.5) Ur Specific [place] >= 1.030 (1.000-1.030) Urine Protein 2+ A (Negative) Urine Glucose (UA) Negative (Negative) Urine Ketones Negative (Negative) Urine Blood 3+ A (Negative) Urine Nitrite Negative (Negative) Urine Bilirubin Negative (Negative) Urine Urobilinogen 0.2 (0.2-1.0) Ur Leukocyte Esterase Negative (Negative) Urine RBC 0-2 (0-2) Urine WBC 0-2 (0-5) Ur Squamous Epith Cells Many A (None-Few) Amorphous Sediment Few A (None) Urine Bacteria Moderate A (None) Urine Mucus Moderate A (None) Urine HCG, Qual Negative (Negative) Discharge Plan Discharge Clinical Impression: Chronic pelvic pain in female Patient Disposition: Home, Self-Care Condition: Stable Instructions: Pelvic Pain in Women (ED) Additional Instructions: Your lab tests are all normal today. I suspect that your pain is related to endometriosis and being off of your medications recently. I would recommend taking 1000 mg of Tylenol 3 times daily. I am giving you a small number of oxycodone to use over the next day or 2. If symptoms persist, please follow-up with OB Gyne. For acute worsening, vomiting, fevers, or other changes, return to the emergency department. Prescriptions: No Action tizanidine 4 mg capsule 8 mg PO DAILY bupropion HCl 150 mg tablet extended release 24 hr 300 mg PO QDAY metformin 500 mg tablet 1,000 mg PO QDAY Patient Comments: TAKE 1 TABLET BY MOUTH DAILY WITH BREAKFAST. Ida (28) 0.4-35 mg-mcg tablet 1 tab PO QDAY Qty: 168 0RF oxycodone 5 mg tablet 5 mg PO Q6H PRN (Reason: pain) Qty: 7 0RF Orilissa 150 mg tablet 150 mg PO QDAY Qty: 30 3RF Follow Up/Referrals: Catherine Santiago MD [Primary Care Provider] - Stand Alone Forms: MyHealth Info Instructions
[2022-11-01 01:09] LABS: Appearance Urine Cloudy (Clear); Bilirubin Urine Negative (Negative); Blood Urine 3+ (Negative); Color Urine Yellow (Yellow); Glucose Urine Negative (Negative); Ketones Urine Negative (Negative); Leukocyte Esterase Urine Negative (Negative); Nitrite Urine Negative (Negative); Protein Urine 2+ (Negative); Specific Gravity Urine >= 1.030 (1.000-1.030); Urobilinogen Urine 0.2 (0.2-1.0); pH Urine 5.5 (5.0-8.5)
[2022-11-01 01:22] LABS: Basophils Absolute Auto 0.01 K/uL (0.00-0.30); Basophils Percent Auto 0.2 % (0.0-3.0); Eosinophils Percent Auto 2.2 % (0.0-7.0); Hematocrit 37.1 % (33.0-51.0); Hemoglobin* 12.2 gm/dL (12.0-16.0); Immature Granulocytes Abs Auto 0.01 K/uL (0.00-0.30); Immature Granulocytes Pct Auto 0.2 %; Lymphocytes Percent Auto 46.6 % (20-44); Mean Corpuscular HGB Conc 33 gm/dL (32-36); Mean Corpuscular Hemoglobin 29 pg (26-34); Mean Corpuscular Volume 88 fL (80-100); Monocytes Percent Auto 6.9 % (0.0-11.0); Neutrophils Absolute Auto 1.98 K/uL (1.7-7.0); Neutrophils Percent Auto 43.9 % (42.0-72.0); Platelet Count* 224 K/uL (140-440); RDW Coefficient of Variation % 11.8 % (11.5-15.5); Red Blood Count 4.21 m/uL (4.00-5.20); White Blood Count* 4.51 K/uL (4.50-11.00)
[2022-11-01 01:24] LABS: Slide Review Reflex No
[2022-11-01 01:25] LABS: Amorphous Sediment Urine Few; Bacteria Urine Moderate; Mucus Urine Moderate; RBC Urine 0-2 (0-2); Squamous Epithelial Cell Urine Many (None-Few); Ur HCG Qualitative* Negative (Negative); WBC Urine 0-2 (0-5)
[2022-11-01 01:34] LABS: Albumin* 4.3 g/dL (3.3-5.0); Chloride* 102 mmol/L (96-114); Sodium* 140 mmol/L (135-149)
[2022-11-01 01:35] LABS: Potassium* 3.6 mmol/L (3.6-5.1)
[2022-11-01 01:38] LABS: Alanine Aminotransferase* 41 U/L (4-35); Alkaline Phosphatase* 49 U/L (40-150); Aspartate Amino Transferase* 32 U/L (12-35); Bilirubin Total* 0.3 mg/dL (0.1-1.5); Blood Urea Nitrogen* 17 mg/dL (5-24); Calcium* 8.7 mg/dL (8.4-10.6); Carbon Dioxide* 28 mmol/L (20-32); Creatinine* 0.8 mg/dL (0.5-1.5); Est. Creatinine Clearance* 105.45; Estimated Glomerular Filt Rate 105 ml/min; Glucose* 94 mg/dL (60-115); Total Protein* 7.6 g/dL (6.0-8.3)
[2022-11-01] MEDS: OXYCODONE 5 MG TABLET PO (01:40)
[2022-11-01 01:41] LABS: C Reactive Protein* 0.8 mg/dL (0.5-1.0)
== END 2022-11-01 01:54 | disposition home or self-care (01) ==
PROVIDERS: Emergency Provider Emergency Medicine; PCP Obstetrics & Gynecology
DX: R10.2 Pelvic and perineal pain (principal)
CPT/HCPCS: 36415; 80048; 80076; 81001; 81025; 85025; 86140; 87086; 99283; 99284; A9270